=== PATIENT | male | born 1955 | race Caucasian/White ===

== ENCOUNTER → 2020-03-07 11:20 | Outpatient (CLI) | payer MEDICARE, MEDICAID, SELFPAY ==
--- NOTE | 2020-03-07 | DI.US.S_ITS ---
PROCEDURE: US ABDOMEN LIMITED INDICATIONS: ASCITES TECHNIQUE: Real-time focused scanning was performed of the abdomen, with image documentation. COMPARISON: None. FINDINGS: Quality of visualization is limited by very large body habitus. A moderate amount of ascites appears present. The liver is heterogeneous and appears nodular in its margination. IMPRESSION: Nodular margination of the liver, along the capsular borders. Moderate ascites. Suspect cirrhosis and portal hypertension. Dictated by: Matteo Dickens M.D. on 03/07/2020 at 12:42 Approved by: Matteo Dickens M.D. on 03/07/2020 at 12:43
== END ==
PROVIDERS: PCP Internal Medicine; Referring Provider Internal Medicine; Visit Provider Internal Medicine
DX: R18.8 Other ascites (principal); K74.60 Unspecified cirrhosis of liver
CPT/HCPCS: 76705

== ENCOUNTER → 2020-03-14 10:29 | Outpatient (CLI) | payer MEDICARE, MEDICAID, SELFPAY ==
--- NOTE | 2020-03-14 11:13 | DI.CT.S_ITS ---
PROCEDURE: CT ABDOMEN WO/W CON INDICATIONS: liver cell carcinoma TECHNIQUE: 4 phase scanning was performed. Non-contrast 5 mm axial sections acquired from the diaphragm to the iliac crests. Following the administration of intravenous contrast, 5 mm thick arterial-phase, portal venous-phase, and 5-minute delayed phase images were acquired through the liver. 5 mm thick coronal and sagittal reformats were performed. For radiation dose reduction, the following was used: automated exposure control, adjustment of mA and/or kV according to patient size. COMPARISON: [facility], , ABDOMEN LIMITED, 03/07/2020, 11:56. FINDINGS: Image quality: Reduced in quality of visualization due to patient motion, large body habitus, anasarca, and results in lower level of the density of contrast-enhancement. Lung bases: Lung bases are clear except for what appears to be mild atelectasis associated with elevation of the right diaphragm. Heart size is normal. Liver: Is small, nodular, and shows several metallic structures at its upper aspect, potentially representing evidence of prior localization or biopsy procedures. A discrete malignant appearing mass lesion within the liver is not found the quality of visualization is quite limited. Other solid organs: Gallbladder contains a posterior neck region calculus, but does not show definite evidence of acute cholecystitis. Biliary system is non dilated. Pancreas is normal in morphology where well seen. Spleen is enlarged at 15 cm craniocaudad in size and free of mass lesion during enhancement. No adrenal nodules on the right but there is a left-sided adrenal nodule measuring up to 1.9 cm in maximal axial dimension. Both kidneys demonstrate normal size and enhancement, without hydronephrosis or nephrolithiasis. Nodes and vessels: No retroperitoneal or mesenteric adenopathy by size criteria. Aorta and inferior vena cava are normal in size. Enlarged periumbilical veins are present, and varices are seen within the upper abdomen consistent with portal hypertension, as expected Bowel and peritoneum: Unenhanced bowel loops are normal in caliber. No free fluid or air. Bones and soft tissues: No suspicious bony lesions. No vertebral body compression generalized anasarca superimposed on large body habitus fractures. Miscellaneous: No ventral hernias. IMPRESSION: Quality of visualization is somewhat limited as discussed. The liver appears heterogeneous and cirrhotic in margination, but a discrete hepatic mass lesion is not identified. Several metallic clips or markers within the liver parenchyma are present. These may indicate sites of prior biopsy. Generalized moderate ascites, generalized moderately severe anasarca. Splenomegaly, portal hypertension. No definite acute disease. Dictated by: Matteo Dickens M.D. on 03/14/2020 at 13:00 Approved by: Matteo Dickens M.D. on 03/14/2020 at 13:17
[2020-03-14 11:20] LABS: Hemoglobin 11.4 g/dL (13.5-17.5); Mean Corpuscular HGB Conc 34.5 % (30-36); Mean Corpuscular Hemoglobin 35.1 PG (26-34); Mean Corpuscular Volume 101.6 fL (80-100); Platelet Count 68 X10^3/uL (150-400); Red Blood Cell Count 3.25 X10^6/uL (4.5-5.9); Red Cell Distribution Width 15.8 % (11.6-14.8); White Blood Cell Count 6.7 X10^3/uL (4.5-11.0)
[2020-03-14 11:29] LABS: INR 1.5 (0.9-1.3); Prothrombin Time 17.3 SECONDS (10.1-12.7)
[2020-03-14 11:34] LABS: Ur Creatinine Normal (Normal); Ur Specific Gravity Normal (Normal); Urine pH Normal (Normal)
[2020-03-14 11:35] LABS: Alanine Aminotransferase 39 IU/L (<50); Albumin 2.7 g/dL (3.5-5.0); Albumin Globulin Ratio 0.6 (1.0-2.8); Alkaline Phosphatase 136 U/L (38-126); Aspartate Aminotransferase 71 IU/L (17-59); BUN Creatinine Ratio 25.9 (6-22); Bilirubin Total 3.1 mg/dL (0.2-1.3); Blood Urea Nitrogen 30 mg/dL (9-20); Calcium 8.8 mg/dL (8.4-10.2); Carbon Dioxide 30 mmol/L (22-32); Chloride 101 mmol/L (98-107); Estimated Glomerular Filt Rate > 60.0 mL/min (>60); Globulin 4.5 g/dL (1.7-4.1); Glucose 129 mg/dL (80-110); HEMOLYSIS < 15 (0-50); Potassium 4.6 mmol/L (3.4-5.1); Sodium 135 mmol/L (137-145); Total Protein 7.2 g/dL (6.3-8.2); UR Morphine/Opiate cutoff 300 Negative (Negative); Urine Amphetamines Negative (Negative); Urine Barbiturates Negative (Negative); Urine Benzodiazepines Negative (Negative); Urine Cocaine Negative (Negative); Urine MDMA Negative (Negative); Urine Methadone Negative (Negative); Urine Methamphetamines Negative (Negative); Urine Oxycodone Negative (Negative); Urine Phencyclidine Negative (Negative); Urine Tetrahydrocannabinol Positive (Negative); Urine Tricyclic Antidepressant Negative (Negative)
[2020-03-15 08:08] LABS: Alpha Fetoprotein 2.3 ng/mL (0.0-8.3)
== END ==
PROVIDERS: PCP Internal Medicine; Referring Provider Internal Medicine Transplant Hepatology; Visit Provider Internal Medicine Transplant Hepatology
DX: C22.0 Liver cell carcinoma (principal); R18.8 Other ascites; R16.1 Splenomegaly, not elsewhere classified; K76.6 Portal hypertension
CPT/HCPCS: 36415; 74170; 80053; 80305; 80307; 82105; 85027; 85610; Q9967

== ENCOUNTER 2020-04-15 15:46 | Inpatient (IN) | payer MEDICARE, MEDICAID, SELFPAY ==
[2020-04-15] VITALS (8 sets, daily range): BP systolic 122–134; BP diastolic 58–79; PULSE 76–84; RESP 18–20; TEMP 36.6–37.2; O2SAT 98–100; BMI 41.8; BMI 49.6
--- NOTE | 2020-04-15 17:25 | DI.US.S_ITS ---
PROCEDURE: US PERIPH VENOUS LOW EXTREM RT INDICATIONS: RED LOWER EXTREMITY WITH PAIN TECHNIQUE: Real-time imaging, as well as color and pulse Doppler interrogation, were performed of the lower extremity deep veins from the inguinal ligament to the popliteal fossa. COMPARISON: None. FINDINGS: The common femoral, femoral and popliteal veins are normally compressible, and free of intraluminal thrombus. Color and pulse Doppler demonstrate normal phasic intraluminal flow. There is normal augmentation response to distal compression maneuver. IMPRESSION: No DVT found. Dictated by: Matteo Dickens M.D. on 04/15/2020 at 18:54 Approved by: Matteo Dickens M.D. on 04/15/2020 at 18:54
[2020-04-15] MEDS: HYDROCODONE/ACET 5/325 TABLET 1 TAB PO (18:24)
[2020-04-15 19:15] LABS: Add Manual Diff / Slide Review NO; Basophils Absolute Auto 0 /uL (0-100); Basophils Percent Auto 0.4 % (0-2); Eosinophils Absolute Auto 300 /uL (0-450); Eosinophils Percent Auto 4.1 % (2-4); Hematocrit 31.1 % (41-53); Hemoglobin 10.5 g/dL (13.5-17.5); INR 1.5 (0.9-1.3); Lymphocytes Absolute Auto 500 /uL (1100-4500); Lymphocytes Percent Auto 6.9 % (25-40); Mean Corpuscular HGB Conc 33.8 % (30-36); Mean Corpuscular Hemoglobin 34.5 PG (26-34); Monocytes Absolute Auto 1200 /uL (0-900); Monocytes Percent Auto 16.4 % (3-14); Neutrophils Absolute Auto 5400 /uL (1500-7000); Neutrophils Percent Auto 72.2 % (50-75); Platelet Count 91 X10^3/uL (150-400); Prothrombin Time 17.3 SECONDS (10.1-12.7); Red Blood Cell Count 3.05 X10^6/uL (4.5-5.9); Red Cell Distribution Width 15.5 % (11.6-14.8); White Blood Cell Count 7.5 X10^3/uL (4.5-11.0)
[2020-04-15 19:18] LABS: PTT Partial Thromboplastin Tim 31 SECONDS (26.4-36.2)
[2020-04-15 19:23] LABS: Magnesium 2.1 mg/dL (1.6-2.3)
[2020-04-15 19:24] LABS: Alanine Aminotransferase 27 IU/L (<50); Albumin 2.6 g/dL (3.5-5.0); Albumin Globulin Ratio 0.6 (1.0-2.8); Alkaline Phosphatase 103 U/L (38-126); Aspartate Aminotransferase 66 IU/L (17-59); BUN Creatinine Ratio 26.2 (6-22); Bilirubin Total 2.2 mg/dL (0.2-1.3); Blood Urea Nitrogen 34 mg/dL (9-20); Calcium 8.8 mg/dL (8.4-10.2); Carbon Dioxide 30 mmol/L (22-32); Chloride 97 mmol/L (98-107); Estimated Glomerular Filt Rate 55.8 mL/min (>60); Globulin 4.7 g/dL (1.7-4.1); Glucose 118 mg/dL (80-110); Potassium 4.8 mmol/L (3.4-5.1); Sodium 130 mmol/L (137-145); Total Protein 7.3 g/dL (6.3-8.2)
[2020-04-15 19:26] LABS: Lactate (Lactic Acid) 1.5 mmol/L (0.7-2.1)
[2020-04-15 19:27] LABS: HEMOLYSIS 52 (0-50)
[2020-04-15 19:33] LABS: NT-proBNP (BNP-Adult 18+) 991 pg/mL (<125)
[2020-04-15 19:46] LABS: Procalcitonin 1.05 ng/mL (<0.5)
--- NOTE | 2020-04-15 20:07 | ED_ITS ---
HPI - Extremity Problem <DANIELLE Montgomery-BC - Last Filed: 04/15/20 21:11> General Chief complaint: Extremity Problem,Nontraumatic Stated complaint: RIGHT ANKLE SWELLING Time Seen by Provider: 04/15/20 17:51 Source: patient Mode of arrival: Wheelchair Limitations: no limitations History of Present Illness HPI Narrative: The patient is a 65-year-old male with history of hepatitis-C, cirrhosis and fluid retention who presents with a chief complaint of pain and swelling in his right foot and ankle. He started noticing the redness and pain 5 days ago. He states he has had a lot of fluid retention issues recently, and has been seeing his primary care provider regarding this, Dr. Payan. He has been placed on Lasix and spironolactone and states that he has lost a large amount of weight recently. He has had the fluid retention issues for several months at this point. He presents denying any chest pain, shortness of breath, fevers nausea vomiting diarrhea or abdominal pain. He states all of his pain is in his foot. He states he has a hard time getting around, but denies any recent flight Related Data Home Medications Medication Instructions Recorded Confirmed furosemide 40 mg PO BID 04/15/20 04/15/20 spironolactone 200 mg PO DAILY 04/15/20 04/15/20 Previous Rx's Medication Instructions Recorded albuterol sulfate 90 mcg/actuation 2 inhalation INHALATION Q4-6H PRN 01/23/20 breath activated powder inhaler #1 each Allergies Allergy/AdvReac Type Severity Reaction Status Date / Time No Known Drug Allergies Allergy Verified 01/23/20 10:24 Review of Systems <BISI Montgomery - Last Filed: 04/15/20 21:11> Review of Systems Narrative: GENERAL: Denies chills, fatigue, malaise, fever, sweats. HEENT: Denies sinus pain, ear pain, sore throat, difficulty swallowing, dizziness. RESPIRATORY: Denies dyspnea, cough, wheezing, hemoptysis, sputum. CARDIOVASCULAR: Denies chest pain, palpitations, orthopnea, edema, GASTROINTESTINAL: Denies nausea, vomiting, abdominal pain, diarrhea, constipation, melena. : Denies dysuria, frequency, incontinence, hematuria, urinary retention. MUSCULOSKELETAL: See HPI SKIN: See HPI NEUROLOGIC: Denies weakness, headache, numbness, change in speech, confusion, seizures, incoordination. PSYCHIATRIC: No concerning psychosocial issues. 12 point review of systems is negative except for those stated above Patient History <ARIS Montgomery - Last Filed: 04/15/20 21:11> Medical History Anasarca (Acute) Ascites (Acute) Asthma (Chronic) Elevated brain natriuretic peptide (BNP) level (Acute) Hepatitis C (Acute) Hypertension (Chronic) Liver cancer (Acute) Liver cirrhosis (Acute) Surgical History History of surgery of liver (Acute) Family History Father Trauma Mother Sjogrens syndrome Sister No significant medical problems Social History household members: spouse Smoking Status: Never smoker alcohol intake: never Smoking Status: Never smoker alcohol intake frequency: 0-2 drinks per day Substance Use Type: marijuana Exam <ARIS Montgomery - Last Filed: 04/15/20 21:11> Narrative Exam Narrative: GENERAL: Obese unkempt male in no acute distress HEAD: Atraumatic. Normocephalic. No temporal or scalp tenderness. EYES: Pupils equal round and reactive. Extraocular motions intact. No scleral icterus. No injection or drainage. ENT: Nose without bleeding, purulent drainage or septal hematoma. . Airway patent. NECK: Trachea midline. No JVD or lymphadenopathy. Supple, nontender, no meningeal signs. CARDIOVASCULAR: Regular rate and rhythm RESPIRATORY: Coarse bilaterally to auscultation. Breath sounds equal bilaterally. No wheezes, rales, or rhonchi. GASTROINTESTINAL: Abdomen soft, non-tender, nondistended. No hepato- splenomegaly, or palpable masses. No guarding. EXTREMITIES: Skin exam as noted. +2 to +3 edema bilateral lower extremities. Positive pedal pulses noted bilaterally. BACK: Nontender without deformity or crepitance. No flank tenderness. NEURO: AOx3. SKIN: Erythema over dorsum of right foot, extending approximately 10 cm up right french. Serosanguineous drainage noted. Slight blistering noted. Multiple dried scabs noted. Initial Vital Signs Initial Vital Signs: Vital Signs Temperature 98.4 F 04/15/20 16:27 Pulse Rate 76 04/15/20 16:27 Respiratory Rate 20 04/15/20 16:27 Blood Pressure 126/65 04/15/20 16:27 Pulse Oximetry 99 04/15/20 16:27 <Ilya Iniguez MD - Last Filed: 04/16/20 03:56> Initial Vital Signs Initial Vital Signs: Vital Signs Temperature 98.4 F 04/15/20 16:27 Pulse Rate 76 04/15/20 16:27 Respiratory Rate 20 04/15/20 16:27 Blood Pressure 126/65 04/15/20 16:27 Pulse Oximetry 99 04/15/20 16:27 Scores <ARIS Montgomery - Last Filed: 04/15/20 21:11> GCS Ricardo coma scale eye opening: Spontaneous Ricardo coma scale verbal response: Orientated Ricardo coma scale motor response: Obey commands Ricardo coma scale total score: 15 Course <ARIS Montgomery - Last Filed: 04/15/20 21:11> Orders Ordered: ED Orders 04/15/20 20:25 Blood Culture Stat 04/15/20 20:57 Wound Culture and Gram Stain Stat Acetaminophen (Tylenol) 650 mg PO Q6HR PRN PRN Reason: Fever/Mild Pain (1-3) Al Hydrox/Mg Hydrox/Simethicone (Maalox Plus) 30 ml PO Q6HR PRN PRN Reason: Dyspepsia Albuterol (Ventolin Hfa) 2 puff INH Q4H PRN PRN Reason: Shortness Of Breath Or Wheezing Bisacodyl (Dulcolax) 10 mg HI DAILY PRN PRN Reason: Constipation Calcium Carbonate (Tums) 1,000 mg PO Q4HR PRN PRN Reason: Dyspepsia Last Admin: 04/15/20 22:28 Dose: 1,000 mg Documented by: GENTRY Docusate Sodium (Colace) 100 mg PO BID TIERNEY Enoxaparin Sodium (Lovenox) 40 mg SUBCUT DAILY TIERNEY Furosemide (Lasix) 80 mg IV BID TIERNEY Hydromorphone HCl (Dilaudid) 0.5 mg IV Q4H PRN PRN Reason: Pain, Severe (7-10) Last Admin: 04/16/20 03:15 Dose: 0.5 mg Documented by: MICHELE Piperacillin/Tazobactam/Dextrose (Zosyn) 3.375 gm in 50 mls @ 100 mls/hr IV Q6H TIERNEY Last Admin: 04/16/20 03:07 Dose: 100 mls/hr Documented by: MICHELE Vancomycin HCl/Dextrose (Vancomycin) 2,000 mg in 400 mls @ 200 mls/hr IV Q12H TIERNEY Sodium Chloride (Normal Saline 0.9%) 250 mls @ 21 mls/hr IV Q24H PRN PRN Reason: Flush Naloxone HCl (Narcan) 0.2 mg IV Q2MIN PRN PRN Reason: Opiate Reversal Ondansetron HCl (Zofran) 4 mg IV Q8HR PRN PRN Reason: Nausea And Vomiting Oxycodone HCl (Percolone) 10 mg PO Q4HR PRN PRN Reason: Pain, Severe (7-10) Oxycodone HCl (Percolone) 5 mg PO Q4HR PRN PRN Reason: Pain, Moderate (4-6) Sodium Chloride (Normal Saline 0.9% Flush) 10 ml IV PRN PRN PRN Reason: Flush Last Admin: 04/16/20 03:07 Dose: 10 ml Documented by: MICHELE Sodium Chloride (Normal Saline 0.9% Flush) 10 ml IV BID TIERNEY Spironolactone (Aldactone) 100 mg PO BIDWM [facility] Vancomycin HCl (Vancomycin Per Pharmacy) 1 request MISC NOW ONE Stop: 04/15/20 21:02 Vancomycin HCl (Vancomycin Trough) 1 request MISC NOW ONE Stop: 04/17/20 09:31 Discontinued Medications Hydrocodone Bitart/Acetaminophen ([place] 5/325) 1 tab PO NOW ONE Stop: 04/15/20 18:21 Last Admin: 04/15/20 18:24 Dose: 1 tab Documented by: JAEYRaul Docusate Sodium (Colace) 100 mg PO BID PRN PRN Reason: Constipation Furosemide (Lasix) 20 mg IV BID TIERNEY Piperacillin/Tazobactam/Dextrose (Zosyn) 3.375 gm in 50 mls @ 100 mls/hr IV NOW ONE Stop: 04/15/20 20:50 Last Infusion: 04/15/20 22:31 Dose: 0 mls/hr Documented by: Admin: 04/15/20 20:32 Dose: 100 mls/hr Documented by: HUSSEIN Vancomycin HCl/Dextrose (Vancomycin) 2,000 mg in 400 mls @ 200 mls/hr IV NOW ONE Stop: 04/15/20 22:22 Last Infusion: 04/16/20 00:23 Dose: 0 mls/hr Documented by: Admin: 04/15/20 22:30 Dose: 200 mls/hr Documented by: GENTRY Vancomycin HCl/Dextrose (Vancomycin) 2,000 mg in 400 mls @ 200 mls/hr IV Q12H TIERNEY Lisinopril (Zestril) 40 mg PO DAILY TIERNEY Oxycodone HCl (Percolone) 5 mg PO Q6HR PRN PRN Reason: Pain, Moderate (4-6) Last Admin: 04/16/20 00:20 Dose: 5 mg Documented by: Admin: 04/15/20 22:28 Dose: 5 mg Documented by: GENTRY Oxycodone HCl (Percolone) 5 mg PO NOW ONE Stop: 04/16/20 00:20 Last Admin: 04/16/20 01:58 Dose: Not Given Documented by: MICHELE Vital Signs Vital signs: Vital Signs - 8 hr 04/15/20 20:00 Pulse Rate 76 Blood Pressure 128/62 Pulse Oximetry 99 <Ilya Iniguez MD - Last Filed: 04/16/20 03:56> Orders Ordered: ED Orders 04/15/20 20:25 Blood Culture Stat 04/15/20 20:57 Wound Culture and Gram Stain Stat Acetaminophen (Tylenol) 650 mg PO Q6HR PRN PRN Reason: Fever/Mild Pain (1-3) Al Hydrox/Mg Hydrox/Simethicone (Maalox Plus) 30 ml PO Q6HR PRN PRN Reason: Dyspepsia Albuterol (Ventolin Hfa) 2 puff INH Q4H PRN PRN Reason: Shortness Of Breath Or Wheezing Bisacodyl (Dulcolax) 10 mg HI DAILY PRN PRN Reason: Constipation Calcium Carbonate (Tums) 1,000 mg PO Q4HR PRN PRN Reason: Dyspepsia Last Admin: 04/15/20 22:28 Dose: 1,000 mg Documented by: GENTRY Docusate Sodium (Colace) 100 mg PO BID [facility] Enoxaparin Sodium (Lovenox) 40 mg SUBCUT DAILY [facility] Furosemide (Lasix) 80 mg IV BID TIERNEY Hydromorphone HCl (Dilaudid) 0.5 mg IV Q4H PRN PRN Reason: Pain, Severe (7-10) Last Admin: 04/16/20 03:15 Dose: 0.5 mg Documented by: MICHELE Piperacillin/Tazobactam/Dextrose (Zosyn) 3.375 gm in 50 mls @ 100 mls/hr IV Q6H TIERNEY Last Admin: 04/16/20 03:07 Dose: 100 mls/hr Documented by: MICHELE Vancomycin HCl/Dextrose (Vancomycin) 2,000 mg in 400 mls @ 200 mls/hr IV Q12H [facility] Sodium Chloride (Normal Saline 0.9%) 250 mls @ 21 mls/hr IV Q24H PRN PRN Reason: Flush Naloxone HCl (Narcan) 0.2 mg IV Q2MIN PRN PRN Reason: Opiate Reversal Ondansetron HCl (Zofran) 4 mg IV Q8HR PRN PRN Reason: Nausea And Vomiting Oxycodone HCl (Percolone) 10 mg PO Q4HR PRN PRN Reason: Pain, Severe (7-10) Oxycodone HCl (Percolone) 5 mg PO Q4HR PRN PRN Reason: Pain, Moderate (4-6) Sodium Chloride (Normal Saline 0.9% Flush) 10 ml IV PRN PRN PRN Reason: Flush Last Admin: 04/16/20 03:07 Dose: 10 ml Documented by: MICHELE Sodium Chloride (Normal Saline 0.9% Flush) 10 ml IV BID [facility] Spironolactone (Aldactone) 100 mg PO BIDWM [facility] Vancomycin HCl (Vancomycin Per Pharmacy) 1 request MISC NOW ONE Stop: 04/15/20 21:02 Vancomycin HCl (Vancomycin Trough) 1 request MISC NOW ONE Stop: 04/17/20 09:31 Discontinued Medications Hydrocodone Bitart/Acetaminophen ([place] 5/325) 1 tab PO NOW ONE Stop: 04/15/20 18:21 Last Admin: 04/15/20 18:24 Dose: 1 tab Documented by: HUSSEIN Docusate Sodium (Colace) 100 mg PO BID PRN PRN Reason: Constipation Furosemide (Lasix) 20 mg IV BID TIERNEY Piperacillin/Tazobactam/Dextrose (Zosyn) 3.375 gm in 50 mls @ 100 mls/hr IV NOW ONE Stop: 04/15/20 20:50 Last Infusion: 04/15/20 22:31 Dose: 0 mls/hr Documented by: Admin: 04/15/20 20:32 Dose: 100 mls/hr Documented by: HUSSEIN Vancomycin HCl/Dextrose (Vancomycin) 2,000 mg in 400 mls @ 200 mls/hr IV NOW ONE Stop: 04/15/20 22:22 Last Infusion: 04/16/20 00:23 Dose: 0 mls/hr Documented by: Admin: 04/15/20 22:30 Dose: 200 mls/hr Documented by: GENTRY Vancomycin HCl/Dextrose (Vancomycin) 2,000 mg in 400 mls @ 200 mls/hr IV Q12H TIERNEY Lisinopril (Zestril) 40 mg PO DAILY TIERNEY Oxycodone HCl (Percolone) 5 mg PO Q6HR PRN PRN Reason: Pain, Moderate (4-6) Last Admin: 04/16/20 00:20 Dose: 5 mg Documented by: Admin: 04/15/20 22:28 Dose: 5 mg Documented by: GENTRY Oxycodone HCl (Percolone) 5 mg PO NOW ONE Stop: 04/16/20 00:20 Last Admin: 04/16/20 01:58 Dose: Not Given Documented by: MICHELE Vital Signs Vital signs: Vital Signs - 8 hr 04/15/20 20:00 Pulse Rate 76 Blood Pressure 128/62 Pulse Oximetry 99 MDM - Extremity (Nontraumatic) <DANIELLE Montgomery-BC - Last Filed: 04/15/20 21:11> Lab Data Result diagrams: 04/15/20 18:52 04/15/20 18:52 Labs: Lab Results 04/15/20 04/15/20 04/15/20 Range/Units 18:52 18:52 18:52 WBC 7.5 (4.5-11.0) X10^3/uL RBC 3.05 L (4.5-5.9) X10^6/uL Hgb 10.5 L (13.5-17.5) g/dL Hct 31.1 L (41-53) % MCV 102.0 H (80-100) fL MCH 34.5 H (26-34) PG MCHC 33.8 (30-36) % RDW 15.5 H (11.6-14.8) % Plt Count 91 L (150-400) X10^3/uL Neut % (Auto) 72.2 (50-75) % Lymph % (Auto) 6.9 L (25-40) % [place] % (Auto) 16.4 H (3-14) % Eos % (Auto) 4.1 H (2-4) % Baso % (Auto) 0.4 (0-2) % Neut # (Auto) 5400 (7618-5043) /uL Lymph # (Auto) 500 L (1622-8929) /uL [place] # (Auto) 1200 H (0-900) /uL Eos # (Auto) 300 (0-450) /uL Baso # (Auto) 0 (0-100) /uL PT 17.3 H (10.1-12.7) SECONDS INR 1.5 H (0.9-1.3) APTT 31 (26.4-36.2) SECONDS Sodium (137-145) mmol/L Potassium (3.4-5.1) mmol/L Chloride (98-107) mmol/L Carbon Dioxide (22-32) mmol/L BUN (9-20) mg/dL Creatinine (0.66-1.25) mg/dL Estimated GFR (>60) mL/min BUN/Creatinine Ratio (6-22) Glucose (80-110) mg/dL Lactate (0.7-2.1) mmol/L Calcium (8.4-10.2) mg/dL Magnesium (1.6-2.3) mg/dL Total Bilirubin (0.2-1.3) mg/dL AST (17-59) IU/L ALT (<50) IU/L Alkaline Phosphatase (38-126) U/L NT-Pro-B Natriuret Pep (<125) pg/mL Total Protein (6.3-8.2) g/dL Albumin (3.5-5.0) g/dL Globulin (1.7-4.1) g/dL Albumin/Globulin Ratio (1.0-2.8) Procalcitonin 1.05 H (<0.5) ng/mL 04/15/20 04/15/20 04/15/20 Range/Units 18:52 18:52 18:52 WBC (4.5-11.0) X10^3/uL RBC (4.5-5.9) X10^6/uL Hgb (13.5-17.5) g/dL Hct (41-53) % MCV (80-100) fL MCH (26-34) PG MCHC (30-36) % RDW (11.6-14.8) % Plt Count (150-400) X10^3/uL Neut % (Auto) (50-75) % Lymph % (Auto) (25-40) % [place] % (Auto) (3-14) % Eos % (Auto) (2-4) % Baso % (Auto) (0-2) % Neut # (Auto) (9898-4354) /uL Lymph # (Auto) (3423-2293) /uL [place] # (Auto) (0-900) /uL Eos # (Auto) (0-450) /uL Baso # (Auto) (0-100) /uL PT (10.1-12.7) SECONDS INR (0.9-1.3) APTT (26.4-36.2) SECONDS Sodium 130 L (137-145) mmol/L Potassium 4.8 (3.4-5.1) mmol/L Chloride 97 L (98-107) mmol/L Carbon Dioxide 30 (22-32) mmol/L BUN 34 H (9-20) mg/dL Creatinine 1.30 H (0.66-1.25) mg/dL Estimated GFR 55.8 L (>60) mL/min BUN/Creatinine Ratio 26.2 H (6-22) Glucose 118 H (80-110) mg/dL Lactate 1.5 (0.7-2.1) mmol/L Calcium 8.8 (8.4-10.2) mg/dL Magnesium 2.1 (1.6-2.3) mg/dL Total Bilirubin 2.2 H (0.2-1.3) mg/dL AST 66 H (17-59) IU/L ALT 27 (<50) IU/L Alkaline Phosphatase 103 (38-126) U/L NT-Pro-B Natriuret Pep (<125) pg/mL Total Protein 7.3 (6.3-8.2) g/dL Albumin 2.6 L (3.5-5.0) g/dL Globulin 4.7 H (1.7-4.1) g/dL Albumin/Globulin Ratio 0.6 L (1.0-2.8) Procalcitonin (<0.5) ng/mL 04/15/20 Range/Units 18:52 WBC (4.5-11.0) X10^3/uL RBC (4.5-5.9) X10^6/uL Hgb (13.5-17.5) g/dL Hct (41-53) % MCV (80-100) fL MCH (26-34) PG MCHC (30-36) % RDW (11.6-14.8) % Plt Count (150-400) X10^3/uL Neut % (Auto) (50-75) % Lymph % (Auto) (25-40) % [place] % (Auto) (3-14) % Eos % (Auto) (2-4) % Baso % (Auto) (0-2) % Neut # (Auto) (9524-1216) /uL Lymph # (Auto) (0374-0192) /uL [place] # (Auto) (0-900) /uL Eos # (Auto) (0-450) /uL Baso # (Auto) (0-100) /uL PT (10.1-12.7) SECONDS INR (0.9-1.3) APTT (26.4-36.2) SECONDS Sodium (137-145) mmol/L Potassium (3.4-5.1) mmol/L Chloride (98-107) mmol/L Carbon Dioxide (22-32) mmol/L BUN (9-20) mg/dL Creatinine (0.66-1.25) mg/dL Estimated GFR (>60) mL/min BUN/Creatinine Ratio (6-22) Glucose (80-110) mg/dL Lactate (0.7-2.1) mmol/L Calcium (8.4-10.2) mg/dL Magnesium (1.6-2.3) mg/dL Total Bilirubin (0.2-1.3) mg/dL AST (17-59) IU/L ALT (<50) IU/L Alkaline Phosphatase (38-126) U/L NT-Pro-B Natriuret Pep 991 H (<125) pg/mL Total Protein (6.3-8.2) g/dL Albumin (3.5-5.0) g/dL Globulin (1.7-4.1) g/dL Albumin/Globulin Ratio (1.0-2.8) Procalcitonin (<0.5) ng/mL Imaging Data US - DVT: Radiologist's Impression: [address] [place] [id number] Ultrasound Report Signed Patient: Juan Carlos Guzmán AMR#: [id number] : 7Acct:[id number] Age/Sex: 65 / MDate of Service: 04/15/20 Loc: ED Accession Number: [id number] Procedure: US periph venous low extrem rt Ordering Provider: James Tang MD PROCEDURE: US PERIPH VENOUS LOW EXTREM RT INDICATIONS: RED LOWER EXTREMITY WITH PAIN TECHNIQUE: Real-time imaging, as well as color and pulse Doppler interrogation, were performed of the lower extremity deep veins from the inguinal ligament to the popliteal fossa. COMPARISON: None. FINDINGS: The common femoral, femoral and popliteal veins are normally compressible, and free of intraluminal thrombus. Color and pulse Doppler demonstrate normal phasic intraluminal flow. There is normal augmentation response to distal compression maneuver. IMPRESSION: No DVT found. Dictated by: Matteo Dickens M.D. on 04/15/2020 at 18:54 Approved by: Matteo Dickens M.D. on 04/15/2020 at 18:54 [facility] Narrative Medical decision making narrative: The patient is a 65-year-old male with multiple comorbid conditions, who presents with a chief complaint of a painful red swollen right foot and ankle. He has no signs of systemic illness, is afe brile in the emergency department. He does have a negative ultrasound for DVT. His exam is very concerning for cellulitis. He has no leukocytosis, there was noted to have an elevated procalcitonin, over 1. Given his multiple comorbidities, I am concerned about follow-up for this patient as well as his elevated procalcitonin. Patient was started on vancomycin and Zosyn, after speaking with Carlos ROE regarding admission for this patient. He kindly agreed to admit this patient for observation to treat his cellulitis. Patient was okay within care, appreciate his help. Patient has been hemodynamically stable throughout stay in the emergency department <Ilya Iniguez MD - Last Filed: 04/16/20 03:56> Lab Data Labs: Lab Results 04/15/20 04/15/20 04/15/20 Range/Units 18:52 18:52 18:52 WBC 7.5 (4.5-11.0) X10^3/uL RBC 3.05 L (4.5-5.9) X10^6/uL Hgb 10.5 L (13.5-17.5) g/dL Hct 31.1 L (41-53) % MCV 102.0 H (80-100) fL MCH 34.5 H (26-34) PG MCHC 33.8 (30-36) % RDW 15.5 H (11.6-14.8) % Plt Count 91 L (150-400) X10^3/uL Neut % (Auto) 72.2 (50-75) % Lymph % (Auto) 6.9 L (25-40) % [place] % (Auto) 16.4 H (3-14) % Eos % (Auto) 4.1 H (2-4) % Baso % (Auto) 0.4 (0-2) % Neut # (Auto) 5400 (8480-8201) /uL Lymph # (Auto) 500 L (6595-5826) /uL [place] # (Auto) 1200 H (0-900) /uL Eos # (Auto) 300 (0-450) /uL Baso # (Auto) 0 (0-100) /uL PT 17.3 H (10.1-12.7) SECONDS INR 1.5 H (0.9-1.3) APTT 31 (26.4-36.2) SECONDS Sodium (137-145) mmol/L Potassium (3.4-5.1) mmol/L Chloride (98-107) mmol/L Carbon Dioxide (22-32) mmol/L BUN (9-20) mg/dL Creatinine (0.66-1.25) mg/dL Estimated GFR (>60) mL/min BUN/Creatinine Ratio (6-22) Glucose (80-110) mg/dL Lactate (0.7-2.1) mmol/L Calcium (8.4-10.2) mg/dL Magnesium (1.6-2.3) mg/dL Total Bilirubin (0.2-1.3) mg/dL AST (17-59) IU/L ALT (<50) IU/L Alkaline Phosphatase (38-126) U/L NT-Pro-B Natriuret Pep (<125) pg/mL Total Protein (6.3-8.2) g/dL Albumin (3.5-5.0) g/dL Globulin (1.7-4.1) g/dL Albumin/Globulin Ratio (1.0-2.8) Procalcitonin 1.05 H (<0.5) ng/mL 04/15/20 04/15/20 04/15/20 Range/Units 18:52 18:52 18:52 WBC (4.5-11.0) X10^3/uL RBC (4.5-5.9) X10^6/uL Hgb (13.5-17.5) g/dL Hct (41-53) % MCV (80-100) fL MCH (26-34) PG MCHC (30-36) % RDW (11.6-14.8) % Plt Count (150-400) X10^3/uL Neut % (Auto) (50-75) % Lymph % (Auto) (25-40) % [place] % (Auto) (3-14) % Eos % (Auto) (2-4) % Baso % (Auto) (0-2) % Neut # (Auto) (8049-1823) /uL Lymph # (Auto) (9223-7064) /uL [place] # (Auto) (0-900) /uL Eos # (Auto) (0-450) /uL Baso # (Auto) (0-100) /uL PT (10.1-12.7) SECONDS INR (0.9-1.3) APTT (26.4-36.2) SECONDS Sodium 130 L (137-145) mmol/L Potassium 4.8 (3.4-5.1) mmol/L Chloride 97 L (98-107) mmol/L Carbon Dioxide 30 (22-32) mmol/L BUN 34 H (9-20) mg/dL Creatinine 1.30 H (0.66-1.25) mg/dL Estimated GFR 55.8 L (>60) mL/min BUN/Creatinine Ratio 26.2 H (6-22) Glucose 118 H (80-110) mg/dL Lactate 1.5 (0.7-2.1) mmol/L Calcium 8.8 (8.4-10.2) mg/dL Magnesium 2.1 (1.6-2.3) mg/dL Total Bilirubin 2.2 H (0.2-1.3) mg/dL AST 66 H (17-59) IU/L ALT 27 (<50) IU/L Alkaline Phosphatase 103 (38-126) U/L NT-Pro-B Natriuret Pep (<125) pg/mL Total Protein 7.3 (6.3-8.2) g/dL Albumin 2.6 L (3.5-5.0) g/dL Globulin 4.7 H (1.7-4.1) g/dL Albumin/Globulin Ratio 0.6 L (1.0-2.8) Procalcitonin (<0.5) ng/mL 04/15/20 Range/Units 18:52 WBC (4.5-11.0) X10^3/uL RBC (4.5-5.9) X10^6/uL Hgb (13.5-17.5) g/dL Hct (41-53) % MCV (80-100) fL MCH (26-34) PG MCHC (30-36) % RDW (11.6-14.8) % Plt Count (150-400) X10^3/uL Neut % (Auto) (50-75) % Lymph % (Auto) (25-40) % [place] % (Auto) (3-14) % Eos % (Auto) (2-4) % Baso % (Auto) (0-2) % Neut # (Auto) (2650-9491) /uL Lymph # (Auto) (0579-8299) /uL [place] # (Auto) (0-900) /uL Eos # (Auto) (0-450) /uL Baso # (Auto) (0-100) /uL PT (10.1-12.7) SECONDS INR (0.9-1.3) APTT (26.4-36.2) SECONDS Sodium (137-145) mmol/L Potassium (3.4-5.1) mmol/L Chloride (98-107) mmol/L Carbon Dioxide (22-32) mmol/L BUN (9-20) mg/dL Creatinine (0.66-1.25) mg/dL Estimated GFR (>60) mL/min BUN/Creatinine Ratio (6-22) Glucose (80-110) mg/dL Lactate (0.7-2.1) mmol/L Calcium (8.4-10.2) mg/dL Magnesium (1.6-2.3) mg/dL Total Bilirubin (0.2-1.3) mg/dL AST (17-59) IU/L ALT (<50) IU/L Alkaline Phosphatase (38-126) U/L NT-Pro-B Natriuret Pep 991 H (<125) pg/mL Total Protein (6.3-8.2) g/dL Albumin (3.5-5.0) g/dL Globulin (1.7-4.1) g/dL Albumin/Globulin Ratio (1.0-2.8) Procalcitonin (<0.5) ng/mL Discharge Plan Departure Patient Disposition: Admitted as Observation Clinical Impression: Cellulitis Qualifiers: Site of cellulitis: extremity Site of cellulitis of extremity: lower extremity Laterality: right Qualified Code(s): L03.115 - Cellulitis of right lower limb Discharge Date/Time: 04/15/20 20:58 Admit Date/Time: 04/15/20 20:24 Admit Provider: Wero Felipe
[2020-04-15] MEDS: PIPERACILLIN-TAZO 3.375 GM/50 ML FROZ.PIGGY IV (20:32)
[2020-04-15] MEDS: OXYCODONE IR 5 MG TABLET PO (22:28)
[2020-04-15] MEDS: CALCIUM CARBONATE 500 MG TAB 1000 MG PO (22:28)
[2020-04-15] MEDS: VANCOMYCIN 2,000 MG/400 ML PIGGYBACK 200 MG IV (22:30)
--- NOTE | 2020-04-15 22:40 | PC.NURSE ---
Admit/Evening Shift Note- Patient arrived to room via stretcher from ER. Patient able to ambulate from stretcher to bathroom then to bed with walker. Admit questions done, physical assessment done, and skin check done. 3-4+ pitting edema to bilateral lower extremities and abdomin noted. multiple lesions and blisters to BLE noted. few scabbed lesions and one open lesion noted. BLE elevated up on pillows. Patient complained of leg pain at 7/10. Oxycodone 5mg PO PRN given as ordered. Patient oriented to bed and bed controls, room, lights, phone, bathroom, and call wright/tv remoted. Safety measures in place. Bed alarm acitvated. Call wright and phone within reach. will continue to monitor.
--- NOTE | 2020-04-15 22:51 | P.HP_ITS ---
History of Present Illness History of Present Illness Date Patient Seen: 04/15/20 Time Patient Seen: 21:34 Chief complaint: RIGHT ANKLE SWELLING Narrative: Mr. Juan Carlos Guzmán is a 65-year-old male with a past medical history significant for hepatitis-C, liver cirrhosis with ascites and anasarca, liver cancer, hypertension and seasonal asthma who presents to the emergency department with right lower extremity swelling and pain for 5 days. The patient has been under the care of Dr. Pancho Payan in [place] where he has been undergoing diuresis for the last month following a 47 lb weight gain. Patient has had progressive abdominal ascites and generalized anasarca that has responded to Lasix and spironolactone therapy. The patient describes wounds de veloping on his lower extremities secondary to the edema and reports developing redness of his right foot and ankle extending up his lower extremity that has been progressive for 5 days. He describes the pain as a 7 to an 8/10 aching in character that is sharp with touch. The patient denies systemic symptoms of fevers or chills, dizziness, nausea or vomiting. He has no known COVID-19 exposures. He denies complaints of chest pain or palpitations. He denies shortness of breath cough or wheezing. His last asthmatic event was in January and was started on a short course of steroids. He describes mild abdominal discomfort related to distention from ascites but no focal tenderness. He describes irregular stooling and no diarrhea. He denies difficulty urinating on diuretic therapy. Patient is able to ambulate albeit limited due to pain. Upon arrival to the ER the patient is afebrile with temperature 98.4?, heart rate of 76, blood pressure 126/65, respirations of 20 saturating 99% on room air. A venous duplex is obtained which finds no DVT but notes interstitial edema. On laboratory analysis he has a white count of 7.5 with elevated monocytes at 16.4%, hemoglobin of 10.5, hematocrit 31.1 and platelets of 91. On coagulation he has a PT of 17.3, INR 1.5, PTT of 31. His electrolytes are within normal limits with a potassium 4.8 and magnesium 2.1. He has a BUN 34 and a creatinine of 1.3. His nonfasting glucose is 118. He has an elevated bilirubin 2 2, elevated AST at 66, ALT of 27 alkaline phosphatase of 103. His albumin is 2.6. He has a lactic acid of 1.5 and procalcitonin of 1.05. His BMP is and 991. The patient is admitted to the medicine service for cellulitis of the right lower extremity in the setting cirrhosis with ascites and anasarca. Patient History Medical History Anasarca (Acute) Ascites (Acute) Asthma (Chronic) Elevated brain natriuretic peptide (BNP) level (Acute) Hepatitis C (Acute) Hypertension (Chronic) Liver cancer (Acute) Liver cirrhosis (Acute) Surgical History History of surgery of liver (Acute) Family & Social History Family History Father Trauma Mother Sjogrens syndrome Sister No significant medical problems Social History: household members spouse Prior Living Arrangements Mobile home Safety & Behavioral: Feels Safe in Current Yes Environment Been Physically Hurt or No Threatened By a Person Suicidal Ideation Description None Suicide Plan Description No Plan Tobacco & Substance use: Smoking Status Never smoker alcohol intake never alcohol intake frequency 0-2 drinks per day Substance Use Type marijuana Meds Home Medications and Allergies Home Medications Medication Instructions Recorded Confirmed Type albuterol sulfate 90 mcg/actuation 2 inhalation INHALATION Q4-6H PRN 01/23/20 04/15/20 Rx breath activated powder inhaler #1 each furosemide 40 mg PO BID 04/15/20 04/15/20 History spironolactone 200 mg PO DAILY 04/15/20 04/15/20 History Allergies Allergy/AdvReac Type Severity Reaction Status Date / Time No Known Drug Allergies Allergy Verified 01/23/20 10:24 Review of Systems Review of Systems ROS: Yes All systems reviewed with the patient and are negative except as otherwise documented Exam Vital Signs (past 8 hours): - 04/15/20 16:27 04/15/20 19:16 04/15/20 19:17 Temperature 98.4 F Pulse Rate 76 78 78 Respiratory Rate 20 Blood Pressure 126/65 134/60 Pulse Oximetry 99 100 100 04/15/20 19:30 04/15/20 20:00 04/15/20 20:55 Temperature 97.9 F Pulse Rate 77 76 78 Respiratory Rate 20 Blood Pressure 122/58 L 128/62 133/79 Pulse Oximetry 98 99 100 07/06/20 20:56 Temperature Pulse Rate Respiratory Rate Blood Pressure Pulse Oximetry 100 Oxygen Delivery Method Room Air Oxygen Flow Rate 0 Narrative Exam Narrative: GENERAL APPEARANCE: well developed, chronically ill-appearing male in no acute distress. HEENT: Normocephalic, PERRLA, sclera is anicteric, EOMs intact with bilateral nystagmus, no sinus tenderness to percussion, no rhinorrhea, report indication with missing teeth, mucous membranes are moist and pink without lesions or exudate. NECK/THYROID: neck supple, nontender, no JVD, no carotid bruit, no thyromegaly, trachea midline. LYMPH NODES: no cervical or supraclavicular lymphadenopathy. SKIN: [place], warm and dry, eczema most prominent left knee, swelling erythema warmth and pain mid right lower leg extending distally. HEART: regular rate and rhythm, S1-S2, no murmur, no rubs or gallops, brisk capillary refill, generalized anasarca LUNGS: clear to auscultation bilaterally, no coarseness crackles or wheezing, no cough present CHEST: Symmetrical movement, no accessory muscle use, good tidal volume. ABDOMEN: firm and distended, ascites with fluid wave, no abdominal tenderness on palpation, no organomegaly though exam limited by body habitus, no flank or suprapubic tenderness, active bowel tones. EXTREMITIES: moves all extremities, strength is 4/5 and symmetrical, 4+ edema bilateral lower extremities NEUROLOGIC: AAO x4, no focal neurologic deficits, cranial nerves II-XII grossly intact, sensation intact to light touch, hearing grossly normal to speech. PSYCH: Good eye contact, fair insight, tangential thought process, cooperative, appropriate with stable behavior Objective Labs Result Diagrams: 04/15/20 18:52 04/15/20 18:52 Labs: Laboratory Results - last 24 hr 04/15/20 04/15/20 04/15/20 18:52 18:52 18:52 WBC 7.5 RBC 3.05 L Hgb 10.5 L Hct 31.1 L MCV 102.0 H MCH 34.5 H MCHC 33.8 RDW 15.5 H Plt Count 91 L Neut % (Auto) 72.2 Lymph % (Auto) 6.9 L Emanuel % (Auto) 16.4 H Eos % (Auto) 4.1 H Baso % (Auto) 0.4 Neut # (Auto) 5400 Lymph # (Auto) 500 L Emanuel # (Auto) 1200 H Eos # (Auto) 300 Baso # (Auto) 0 PT 17.3 H INR 1.5 H APTT 31 Sodium Potassium Chloride Carbon Dioxide BUN Creatinine Estimated GFR BUN/Creatinine Ratio Glucose Lactate Calcium Magnesium Total Bilirubin AST ALT Alkaline Phosphatase NT-Pro-B Natriuret Pep Total Protein Albumin Globulin Albumin/Globulin Ratio Procalcitonin 1.05 H 04/15/20 04/15/20 04/15/20 18:52 18:52 18:52 WBC RBC Hgb Hct MCV MCH MCHC RDW Plt Count Neut % (Auto) Lymph % (Auto) Emanuel % (Auto) Eos % (Auto) Baso % (Auto) Neut # (Auto) Lymph # (Auto) Emanuel # (Auto) Eos # (Auto) Baso # (Auto) PT INR APTT Sodium 130 L Potassium 4.8 Chloride 97 L Carbon Dioxide 30 BUN 34 H Creatinine 1.30 H Estimated GFR 55.8 L BUN/Creatinine Ratio 26.2 H Glucose 118 H Lactate 1.5 Calcium 8.8 Magnesium 2.1 Total Bilirubin 2.2 H AST 66 H ALT 27 Alkaline Phosphatase 103 NT-Pro-B Natriuret Pep Total Protein 7.3 Albumin 2.6 L Globulin 4.7 H Albumin/Globulin Ratio 0.6 L Procalcitonin 04/15/20 18:52 WBC RBC Hgb Hct MCV MCH MCHC RDW Plt Count Neut % (Auto) Lymph % (Auto) Emanuel % (Auto) Eos % (Auto) Baso % (Auto) Neut # (Auto) Lymph # (Auto) Emanuel # (Auto) Eos # (Auto) Baso # (Auto) PT INR APTT Sodium Potassium Chloride Carbon Dioxide BUN Creatinine Estimated GFR BUN/Creatinine Ratio Glucose Lactate Calcium Magnesium Total Bilirubin AST ALT Alkaline Phosphatase NT-Pro-B Natriuret Pep 991 H Total Protein Albumin Globulin Albumin/Globulin Ratio Procalcitonin Assessment & Plan Assessment & Plan narrative: This is a 65-year-old male patient a history hepatitis-C, liver cirrhosis for 3 years with abdominal ascites and anasarca undergoing diuresis, liver cancer status post lesion excision, hypertension and asthma who is found to have cellulitis of the right lower extremity secondary to edema and skin breakdown. 1. Cellulitis right lower extremity, present on admission, active -cellulitis secondary to marked peripheral edema and associated skin breakdown. -patient has a normal white count 7.5 with elevated monocytes at 16.4%. Procalcitonin is elevated at 1.05. Blood culture and wound culture have been obtained. -ordered vancomycin 2000 mg IV with 1st dose administered in the ER and continued every 12 hours with pharmacy to dose. -ordered Zosyn 3.375 g IV every 6 hours. -will recheck CBC and procalcitonin in the morning. 2. Liver cirrhosis, secondary to hepatitis C, present on admission, stable -the patient has had progressive cirrhosis for 3 years worsening in the last few months and has been on aggressive diuresis for 1 month. -patient with firm distended abdomen with fluid wave present and generalized anasarca on exam. -patient has a bilirubin of 2.2, AST of 66, ALT of 27 alkaline phosphatase of 103. He has a creatinine 1.3, INR 1.5. Abdomen ultrasound on 03/07/2020 finding moderate ascites with heterogeneous and nodular liver and suspecting portal hypertension. Abdominal CT on 03/14/2020: cirrhotic in margination,no cancerous lesion, clips noted from prior liver surgery, gallbladder stones, pancreas found normal and enlarged spleen. -MELD score is 22 consistent with a 19.6% three-month mortality. -ordered Lasix 80 mg twice daily at 8:00 a.m. and 4:00 p.m., continue spirolactone 200 mg daily. Will monitor electrolytes on serial labs. -patient has been taking lactulose but states ran out, will obtain ammonia level. -low suspicion of spontaneous bacterial peritonitis. -requested dietitian consult. 3. Hypertension, chronic, stable -patient states he is no longer taking lisinopril for for blood pressure. -patient is being aggressively diuresed with Lasix and spironolactone which are continued as above. 4. Asthma, mild intermittent, seasonal, chronic, stable. -the patient denies complaints shortness of breath or wheezing. His last bout of asthma was in January at which time he underwent short course of steroids. -ordered albuterol MDI 2 puffs every 4-6 hours as needed. VTE prophylaxis: Left SCD, enoxaparin-will discontinue platelets drop below 50. IV fluid: Saline lock. Diet: Low-sodium. Code status: FULL CODE, patient designates his Tayler Rasmussen to be his surrogate decision maker. The patient is admitted to the hospital due to the severity of his infection and comorbid conditions increasing the risk for potential complications and adverse events. The patient is admitted as an inpatient with expected length of stay to be greater than 2 midnights. Quality VTE Deep Vein Thrombosis/Pulmonary Embolism Present on Admission: No
[2020-04-15 23:20] LABS: Ammonia (NH3) < 9 umol/L (9-30)
[2020-04-16] VITALS (11 sets, daily range): BP systolic 120–156; BP diastolic 71–88; PULSE 74–101; RESP 16–20; TEMP 36.1–37.1; O2SAT 93–99
[2020-04-16] MEDS: OXYCODONE IR 5 MG TABLET PO ×2 (00:20→23:46)
--- NOTE | 2020-04-16 00:45 | PC.NURSE ---
Addendum entered by Nicole Lemon R.N. 04/16/20 03:20: Has been asleep past couple hours and now awake and states pain is improved from earlier but still rates severity as 7/10; medicated with IV Dilaudid as too early to give additional Oxycodone. Assisted to reposition in bed. Original Note: Patient is alert and oriented. Breath sounds diminished but CTA with RA sat of 98%. Denies feeling SOB but does sound SOB with exertion of being up to bathroom. HRR. Denies nausea. BT present. Abdomen is very large and firm with edema. Noted to have moist, peeling skin in groin folds. Edema in bilateral LE toes to hip. Right LE is erythemic with pinhead size open area noted on anterior french. Has multiple lesions on bilateral knees and lower back which he states is from seborrhea. Complains of 7/10 pain in right LE despite receiving Oxycodone earlier so BEHAVIORAL HEALTH RN, Matteo, informed and medicated with 2nd Oxycodone per order. Has great difficulty in getting self out of bed due to edema/pain and then ambulated to bathroom with walker and 1 assist; does state he feels generalized weakness. Denies dysuria, frequency or urgency with urination. Wearing calf SCD to left leg. Fall risk score is high (reports falls within past 3 months) and bed alarm is activated although patient is calling appropriately.
[2020-04-16] MEDS: PIPERACILLIN-TAZO 3.375 GM/50 ML FROZ.PIGGY IV ×4 (03:07→22:26)
[2020-04-16] MEDS: SODIUM CHLORIDE 0.9% FLUSH 10 ML IV ×3 (03:07→21:59)
[2020-04-16] MEDS: HYDROMORPHONE 0.5 MG INJ IV (03:15)
[2020-04-16 05:43] LABS: Add Manual Diff / Slide Review NO; Basophils Absolute Auto 0 /uL (0-100); Basophils Percent Auto 0.3 % (0-2); Eosinophils Absolute Auto 300 /uL (0-450); Eosinophils Percent Auto 4.9 % (2-4); Hematocrit 30.2 % (41-53); Hemoglobin 10.2 g/dL (13.5-17.5); Lymphocytes Absolute Auto 400 /uL (1100-4500); Lymphocytes Percent Auto 7.3 % (25-40); Mean Corpuscular HGB Conc 33.7 % (30-36); Mean Corpuscular Hemoglobin 34.4 PG (26-34); Mean Corpuscular Volume 102.2 fL (80-100); Monocytes Absolute Auto 1200 /uL (0-900); Neutrophils Absolute Auto 4200 /uL (1500-7000); Neutrophils Percent Auto 68.5 % (50-75); Platelet Count 80 X10^3/uL (150-400); Red Blood Cell Count 2.95 X10^6/uL (4.5-5.9); Red Cell Distribution Width 15.3 % (11.6-14.8); White Blood Cell Count 6.1 X10^3/uL (4.5-11.0)
[2020-04-16 05:52] LABS: BUN Creatinine Ratio 26.7 (6-22); Blood Urea Nitrogen 32 mg/dL (9-20); Calcium 8.6 mg/dL (8.4-10.2); Carbon Dioxide 27 mmol/L (22-32); Chloride 100 mmol/L (98-107); Estimated Glomerular Filt Rate > 60.0 mL/min (>60); Glucose 113 mg/dL (80-110); HEMOLYSIS 15 (0-50); Potassium 4.7 mmol/L (3.4-5.1); Sodium 132 mmol/L (137-145)
[2020-04-16 06:10] LABS: Procalcitonin 0.72 ng/mL (<0.5)
[2020-04-16] MEDS: OXYCODONE IR 10 MG TABLET PO ×4 (06:24→19:08)
[2020-04-16] MEDS: SPIRONOLACTONE 50 MG TABLET 100 MG PO ×2 (08:30→19:09)
[2020-04-16] MEDS: SODIUM CHLORIDE 0.9% 250 ML 21 ML IV (08:30)
[2020-04-16] MEDS: FUROSEMIDE 20 MG/2 ML VIAL 80 MG IV ×2 (08:30→21:58)
[2020-04-16] MEDS: ENOXAPARIN 40 MG/0.4 ML SYRINGE SUBCUT (08:31)
[2020-04-16] MEDS: DOCUSATE 100 MG CAPSULE PO (08:31)
[2020-04-16] MEDS: VANCOMYCIN 1,500 MG/300 ML FROZ.PIGGY 200 MG IV ×2 (10:35→22:56)
--- NOTE | 2020-04-16 12:44 | CM.DANOTE ---
DCP: assessment: case received, EMR reviewed and met with pt during (and after) Team Bedside Rounds. Introduced self and role. PT is a 65 year old male who admitted last night to care of hospitalist team. PCP: Dr. Pancho Payan Payer: Medicare and Medicaid. Admission status: in review: per UR RN Amado Pt is admitted with cellulitis of RLE in setting of liver cirrhosis with ascites and anasarca. Dr. Kamara explained that she would be back later to talk with pt about his POC going forward. She gave order for OT/PT to see him. Pt reports he can get up and get to bathroom at home without assist but it sounds like his abilities are rather minimal due to his chronic illnesses. He describes his as very supportive. (see dcp template for other details) P: DCP team will be following as POC unfolds. Should know more about pt's options at d/c after admission status is established, Dr. Kamara's note is in and OT and PT have assessed.
--- NOTE | 2020-04-16 13:48 | PC.NURSE ---
Addendum entered by Monique Rodriguez R.N. 04/16/20 15:01: pt has voided a total of 2175 mls of urine this shift. Pt has drank approx 250mls plus has 350mls of ice water left in cup on bedside table. Original Note: Day Shift- Pt A&OX4, pleasant and coopertive, able to make needs known using call light. OOB frequently to void in toilet. 1PA using FWW. Pt moves slowly from lying to sitting to standing position getting OOB. Once ambulatory, pt moves fairly good. RLE red, slightly warm, small intact lesions present with 1 slightly draining lesion/blister to lower inner french area. RLE elevated on pillows throughout shift and using bed function. At 1140, pt's RLE elevated on 3 pillows and bed function left flat, retrieved better elevation with his foot not dangled downwards. LLE Calf SCD in place. Pt aware of 1.5L fluid restriction per Dr. Kamara, D-600mls, E-600mls, N-300mls.
--- NOTE | 2020-04-16 16:05 | PT.IIE ---
Current Diagnoses Cellulitis of right lower limb (04/15/20) Surgical History (Last Reviewed 04/15/20 @ 23:31 by BHUPINDER Brandon) History of surgery of liver (Acute) Medical History (Last Reviewed 04/15/20 @ 23:31 by BHUPINDER Brandon) Anasarca (Acute) Ascites (Acute) Asthma (Chronic) Elevated brain natriuretic peptide (BNP) level (Acute) Hepatitis C (Acute) Hypertension (Chronic) Liver cancer (Acute) Liver cirrhosis (Acute) Physical Therapy Inpatient Evaluation/Re-Eval M1 PT/OT-IP Prior Functional Status Start: 04/16/20 11:48 Freq: NEEDED Status: Active Protocol: Document 04/16/20 15:31 AW (Rec: 04/16/20 16:05 AW [id number]) Medical Review Prior Functional Status Medical History Reviewed Yes Communication WNL. Pt is an effective verbal communicator. Mobility and Gait Pt walks household and short community distances with a single crutch typically on his left side Activities of Daily Living and IADL's Pt reports he wears pants with elastic waistbands which he can don independently but that he requires assist with his shoes and socks partly due to swelling. Pt showers with SBA and completes all toileting independently. Prior Functional Level (Other details) Pt does not drive if he doesn' t have to. He depends on his , Tayler, for transportation. Social History Household Members spouse Living Arrangements Mobile home Number of Floors (Floors) One Floor Number of Stairs To Enter/Railing? Pt describes a packed earth ramp and one single step to enter through the front door. Home Environment Standard Height Toilet,Tub/ Shower Home Equipment Straight Cane,Crutches Additional Social History Comment Pt lives with his who works directory operator at [employer]. She is off work on Tuesdays and Wednesdays. Pt's daughter lives in her own trailer on the same property. M2 PT-IP Current Condition Start: 04/16/20 11:48 Freq: NEEDED Status: Active Protocol: Document 04/16/20 15:31 AW (Rec: 04/16/20 16:05 AW [id number]) Physical Therapy Current Condition Current Condition Evaluation Date 04/16/20 Treatment Diagnosis RLE cellulitis; difficulty in walking Onset Date 04/15/20 M3 PT-IP Subjective Start: 04/16/20 11:48 Freq: NEEDED Status: Active Protocol: Document 04/16/20 15:31 AW (Rec: 04/16/20 16:05 AW [id number]) Subjective Physical Therapy Visit Type Type Initial Evaluation Visit Start Time 14:57 Visit Stop Time 15:29 Total Visit Minutes 32 Notes Pt's arrived assisted through assessment and contributed information about PLOF and home set up. Physical Therapy Visit Comments Patient Comments Pt is willing to participate with PT. Patient Goals Pt hopes to return home with family support Therapy Pain Assessment Pain When Pain Assessed During Mobility Pain Present Pain Present Pain Reported Location Right Leg Scale Used not quantified Pain Behaviors Facial Grimacing Pain Management Techniques Elevation,Re-positioning, Timing of Activity with Medications M4 PT-IP Mobility and Gait Start: 04/16/20 11:48 Freq: NEEDED Status: Active Protocol: Document 04/16/20 15:31 AW (Rec: 04/16/20 16:05 AW [id number]) PT-Bed Mobility Assessment Supine to Sit Supine to Sit Standby Assistance,Bedrails Scooting Scooting to Edge of Bed Standby Assistance PT-Transfer Assessment Sit to and From Stand Sit to and from Stand Standby Assistance,Minimal Assistance,Use of Upper Extremities Equipment Transfer Assistive Device Gait Belt,Front Wheeled Walker Orthotic/Prosthetic Devices or Brace: No Transfers Transfer Destination Chair Transfer Technique pt ambulated with FWW and single crutch Transfer Ability Level of Assist Standby Assistance,Use of Upper Extremities Comments Mobility Comments Pt was sitting up in bed upon PT arrival. With HOB flat, he completed supine to sit SBA but with use of the bed rails. Pt was able to sit with and without UE support before completing sit to stand with FWW SBA and cues to push off the bed surface with B UE. He ambulated 30 feet around the room with FWW SBA, requiring verbal cues to correct flexed posture. Pt transferred to the chair SBA. Pt was asked to stand again and required verbal cues to scoot forward on the chair and to use BUE to push off the chair arms. From the low chair, pt required min A to complete sit to stand . He walked 15 feet with the walker SBA and then another 30 feet with the single crutch on his left side. Pt was able to sequence gait with left crutch and right leg advancing at the same time but required CGA. Pt then requested to ambulate without AD; he walked 20 feet in the room without AD requiring close CGA and pt reached for the foot of the bed and the sink during that short bout. Pt transferred back to the chair SBA where he was positioned with legs elevated, call light and all needs within reach, and supportive visiting. Gait Assessment Gait Gait Assistance Required: Standby Assistance,Contact Guard Assist Distance (Feet) 30 Assistive Devices Assistive Device None,Gait Belt,Front Wheeled Walker,Axillary Crutches Orthotic/Prosthetic Devices or Brace: No Gait Deviations General Gait Pattern Antalgic,Decreased Stride Length,Decreased Feet Clearance,Flexed Trunk,Step-to Gait,Wide Based Gait Factors Limiting Gait Function Factors Limiting Gait Function Decreased Activity Tolerance, Decreased Sensation,Decreased Strength,Difficulty Following Directions,Limited Range of Motion,Pain,Poor Balance,Poor Safety Awareness Comments Gait Comments See mobility comments. Gait was assessed with FWW, single axillary crutch, and without AD. Pt agreed he was safest and steadiest with FWW. See mobility comments for details. Gait was characterized by decreased R LE stance time and decreased L LE step length. Stair Climbing Assessment Comments Stair Climbing Comments Not assessed. PT-Balance Assessment Sitting Balance and Reactions Static Sitting Balance Ability Good Dynamic Sitting Balance Ability Good Standing Balance and Reactions Static Standing Balance Ability Fair Dynamic Standing Balance Ability Fair Device Used FWW M5 PT-IP Objective Assessments Start: 04/16/20 11:48 Freq: NEEDED Status: Active Protocol: Document 04/16/20 15:31 AW (Rec: 04/16/20 16:05 AW [id number]) Orientation Orientation/Cognition Level of Alertness Alert Orientation Name,Day of Week,Place, Situation Language Function Ability No Deficits Noted Safety Awareness Decreased Safety Awareness Memory Description No Deficits Noted Gross Range of Motion Lower Extremity ROM Assessment Right Impaired Impairments Lacking right ankle dorsiflexion due to swelling and pain Strength Lower Extremity Strength Assessment Bilaterally Impaired Hip 4-/5 Knee 4/5 Ankle L 4+/5; R 3-/5 Coordination Assessment Gross Coordination Gross Coordination WNL Sensation Assessment Sensation Gross Sensation Right LE Impaired Comments Sensation Comments Pt denies sensation impairment R LE per history but agrees on exam that distal R LE sensation is diminished. Muscle Tone Muscle Tone WNL Yes M6 PT-IP Treatment Start: 04/16/20 11:48 Freq: NEEDED Status: Active Protocol: Document 04/16/20 15:31 AW (Rec: 04/16/20 16:05 AW [id number]) Physical Therapy Treatment Exercises Exercises Ankle Pumps Education Education Provided Precautions,Safety Other Treatments Other Treatment Performed Provided education on role of PT, plan of care, and rationale for selection of an assistive device. M7 PT-IP Assessment and Plan Start: 04/16/20 11:48 Freq: NEEDED Status: Active Protocol: Document 04/16/20 15:31 AW (Rec: 04/16/20 16:05 AW [id number]) PT Summary Assessment and Plan Potential Rehabilitation Potential Good Status of Condition at Evaluation Evolving Summary Impairments Pain,ROM,Strength,Balance, Sensation,Bed Mobility, Transfers,Gait,Activity Tolerance Assessment Summary Kadeem is a 65 yo man seen for PT evaluation with diagnosis of R LE cellulitis. At baseline, he ambulates with a single axillary crutch for short distances up to 50 feet. He lives with his supportive spouse, Tayler, who works directory operator. Pt reports three falls in the past four months. On evaluation, pt required min assist for sit to stand from low chair and SBA for ambulation with FWW. CGA was needed for ambulation with single crutch and without AD. Pt agreed that energy expenditure was higher with the crutch and without AD. He would benefit from use of FWW at home in order to improve indpendent mobility and to reduce risk of falls. Pt is likely to be safe to discharge to home with spouse assist, FWW, and may benefit from home health or outpatient therapy to address safety in the home and reduce risk of falls. Goals Bed Mobility Goal Independent Transfer Goal Independent,Front Wheeled Walker Gait Goal Independent,Front Wheel Walker Gait Distance 100 Other Goals - up/down single step with FWW SBA Days to Meet Goals 3 Frequency of Treatment Frequency Of Treatment Once a Day Treatment Plan Physical Therapy Treatment Plan Bed Mobility Training,Transfer Training,Gait Training, Therapeutic Exercise,Balance Retraining,Discharge Planning, Hot or Cold Pack,Neuromuscular Re-ed Other Recommendations and Next Treatment gait training with FWW; Focus dispense FWW if pt discharging Recommendations To Nursing Amount of Assist Needed Standby Assistance,1 Person Assist Discharge Recommendations PT Discharge Recommendations Home with Assistance,Home Health,Outpatient PT Other Discharge Recommendations home with assist and HH vs OP PT Equipment Needed for Home Before FWW Discharge Transportation Needs at Discharge Private Vehicle
--- NOTE | 2020-04-16 16:25 | P.PN_ITS ---
Subjective Subjective Date Patient Seen: 04/16/20 Interval history: Juan Carlos Guzmán is a 65-year-old Cmale with a past medical history significant for treated hepatitis C with liver cirrhosis and complication of portal hypertension, ascites, thrombocytopenia, hepatocellular carcinoma status post resection and treatment considered in remission, hypertension and seasonal asthma who presented to the ED with progressive worsening right lower extremity erythema and edema x5 days. The patient is resting comfortably in bed. He reports that is difficult for him to get in and out of bed due to his size and swelling of his lower extremities, abdomen and hips. He reports that the diuretics have been working well and have been causing him to have to urinate frequently. His right lower extremity cellulitis is improving. He has dependent edema to abdominal wall and hips bilaterally. He has no other complaints and denies headache, chest pain, shortness of breath, abdominal pain, nausea, vomiting, fever, chills, dysuria, diarrhea or constipation. He is voiding and eliminating without difficulty. He is up ambulating with assistance. Exam Vital Signs (past 8 hours): - 04/16/20 10:10 04/16/20 11:42 04/16/20 12:00 Temperature 97.0 F L Pulse Rate 88 87 Respiratory Rate 16 18 Blood Pressure 130/72 Pulse Oximetry 99 98 98 04/16/20 16:00 Temperature 97.6 F Pulse Rate 85 Respiratory Rate 19 Blood Pressure 134/76 Pulse Oximetry 95 Oxygen Delivery Method Room Air Oxygen Flow Rate 0 Narrative Exam Narrative: General: Older gentleman sitting in bed and in no acute distress, appears older than stated age, well-developed, well-nourished, appropriately interactive HEENT: Normocephalic, atraumatic. External ears without defect. Pupils equal, round, and reactive to light and accommodation. Anicteric sclerae, moist conjunctivae, and no lid lag. Oropharynx free of erythema and cobble stoning with moist mucosa. Poor dentition. Neck: Supple with full range of motion. No jugular venous distension. No bruits. No lymphadenopathy or thyromegaly. Cardiovascular: Regular rate and rhythm without murmurs, rubs, or gallops appreciated Pulmonary: Clear to auscultation bilaterally without crackles, wheezes, or rhonchi. Normal respiratory effort with no use of accessory muscles. Abdomen: Soft, obese, nontender, nondistended. No hepatosplenomegaly or masses appreciated. Extremities: No clubbing or cyanosis. Moderate dependent pitting edema to abdominal wall and hips bilaterally. Right lower extremity with erythema and warmth to pretibial area that appears to be regressing and is tender to touch. Skin: Normal temperature, turgor, and texture; several small maculopapular lesions breath throughout bilateral lower extremities. Neurological: Cranial nerves grossly intact. Psychiatric: Normal mood and affect. Alert and oriented to person, place, and time. Poor insight. Objective Labs Result Diagrams: 04/17/20 05:40 04/17/20 05:40 Labs: Laboratory Results - last 24 hr 04/15/20 04/15/20 04/15/20 18:52 18:52 18:52 WBC 7.5 RBC 3.05 L Hgb 10.5 L Hct 31.1 L MCV 102.0 H MCH 34.5 H MCHC 33.8 RDW 15.5 H Plt Count 91 L Neut % (Auto) 72.2 Lymph % (Auto) 6.9 L [place] % (Auto) 16.4 H Eos % (Auto) 4.1 H Baso % (Auto) 0.4 Neut # (Auto) 5400 Lymph # (Auto) 500 L [place] # (Auto) 1200 H Eos # (Auto) 300 Baso # (Auto) 0 PT 17.3 H INR 1.5 H APTT 31 Sodium Potassium Chloride Carbon Dioxide BUN Creatinine Estimated GFR BUN/Creatinine Ratio Glucose Lactate Calcium Magnesium Total Bilirubin AST ALT Alkaline Phosphatase Ammonia NT-Pro-B Natriuret Pep Total Protein Albumin Globulin Albumin/Globulin Ratio Procalcitonin 1.05 H 04/15/20 04/15/20 04/15/20 18:52 18:52 18:52 WBC RBC Hgb Hct MCV MCH MCHC RDW Plt Count Neut % (Auto) Lymph % (Auto) [place] % (Auto) Eos % (Auto) Baso % (Auto) Neut # (Auto) Lymph # (Auto) [place] # (Auto) Eos # (Auto) Baso # (Auto) PT INR APTT Sodium 130 L Potassium 4.8 Chloride 97 L Carbon Dioxide 30 BUN 34 H Creatinine 1.30 H Estimated GFR 55.8 L BUN/Creatinine Ratio 26.2 H Glucose 118 H Lactate 1.5 Calcium 8.8 Magnesium 2.1 Total Bilirubin 2.2 H AST 66 H ALT 27 Alkaline Phosphatase 103 Ammonia NT-Pro-B Natriuret Pep Total Protein 7.3 Albumin 2.6 L Globulin 4.7 H Albumin/Globulin Ratio 0.6 L Procalcitonin 04/15/20 04/15/20 04/16/20 18:52 23:05 05:30 WBC RBC Hgb Hct MCV MCH MCHC RDW Plt Count Neut % (Auto) Lymph % (Auto) [place] % (Auto) Eos % (Auto) Baso % (Auto) Neut # (Auto) Lymph # (Auto) [place] # (Auto) Eos # (Auto) Baso # (Auto) PT INR APTT Sodium Potassium Chloride Carbon Dioxide BUN Creatinine Estimated GFR BUN/Creatinine Ratio Glucose Lactate Calcium Magnesium Total Bilirubin AST ALT Alkaline Phosphatase Ammonia < 9 L NT-Pro-B Natriuret Pep 991 H Total Protein Albumin Globulin Albumin/Globulin Ratio Procalcitonin 0.72 H 04/16/20 04/16/20 05:30 05:30 WBC 6.1 RBC 2.95 L Hgb 10.2 L Hct 30.2 L MCV 102.2 H MCH 34.4 H MCHC 33.7 RDW 15.3 H Plt Count 80 L Neut % (Auto) 68.5 Lymph % (Auto) 7.3 L [place] % (Auto) 19.0 H Eos % (Auto) 4.9 H Baso % (Auto) 0.3 Neut # (Auto) 4200 Lymph # (Auto) 400 L [place] # (Auto) 1200 H Eos # (Auto) 300 Baso # (Auto) 0 PT INR APTT Sodium 132 L Potassium 4.7 Chloride 100 Carbon Dioxide 27 BUN 32 H Creatinine 1.20 Estimated GFR > 60.0 BUN/Creatinine Ratio 26.7 H Glucose 113 H Lactate Calcium 8.6 Magnesium Total Bilirubin AST ALT Alkaline Phosphatase Ammonia NT-Pro-B Natriuret Pep Total Protein Albumin Globulin Albumin/Globulin Ratio Procalcitonin Assessment & Plan Assessment & Plan narrative: Juan Carlos Guzmán is a 65-year-old Cmale with a past medical history significant for treated hepatitis C with liver cirrhosis and complication of portal hypertension, ascites, thrombocytopenia, and hepatocellular carcinoma status post resection and treatment considered in remission, hypertension and seasonal asthma who presented to the ED with progressive worsening right lower extremity erythema and edema x5 days. 1. Acute right lower extremity cellulitis, present on admission. Active. -Patient presented with progressive worsening right lower extremity erythema and edema x5 days. -cellulitis secondary to marked peripheral edema and associated skin breakdown. -Initial WBC normal at 7.5 and procalcitonin elevated at 1.05. Continue to monitor WBC and procalcitonin daily. -Blood cultures x2 have no growth to date and wound cultures preliminarily growing staph species. -Received vancomycin in ED. Continue vancomycin with dosing per pharmacist and Zosyn 3.375 g IV every 6 hours. -Continue to elevate bilateral lower extremities above the level of the heart and diurese as below. 2. Treated Hepatitis-C with liver cirrhosis and hepatocellular carcinoma status post resection and treatment considered in remission, chronic, present on admission. Stable. -Patient has history of treated hepatitis-C with liver cirrhosis and complication of thrombocytopenia and ascites. The patient's edema has been worsening over the last several months and he is on aggressive diuresis per outpatient PCP and lawn care technician. -Initial LFTs: Total bilirubin of 2.2, AST of 66, ALT of 27 alkaline phosphatase of 103. He has a creatinine 1.3, INR 1.5. -Abdominal ultrasound on 03/07/2020 demonstrated moderate ascites with nodular margination of the liver, along the capsular borders suspect cirrhosis and portal hypertension. -CT abdomen and pelvis with and without contrast on 03/14/2020 demonstrated heterogeneous and cirrhotic margination of liver, no discrete mass with several metallic surgical clips, generalized moderate ascites, generalized moderately severe anasarca, splenomegaly, and portal hypertension. No definite acute disease. -MELD score is 22 consistent with a 19.6% average three-month mortality. -continued aggressive diuresis with home furosemide increased from 40 mg PO twice daily to 80 mg IV twice daily and home spirolactone 200 mg daily. Continue to monitor electrolytes closely and replete as necessary. -Continue 2g low-sodium diet and 1.5 L fluid restriction. -Continue strict I&Os and daily weights. -Consulted dietitian, pending. 3. Hypertension, chronic, present on admission. Stable. -Patient was previously on lisinopril which has been discontinued. -Continue aggressive diuresis with furosemide 80 mg IV daily and home spironolactone 200 mg daily. 4. Asthma, mild intermittent, chronic, present on admission. Stable. -Patient denies complaints shortness of breath or wheezing. His last asthma exacerbation was in January 2020 at which time he underwent short course of steroids. -Continue home albuterol inhaler 2 puffs every 4-6 hours as needed for shortness of breath or wheezing. Code status: Full code, patient does and needs his , Tayler Rasmussen, to be his surrogate decision maker. VTE prophylaxis: Enoxaparin Disposition: Patient will likely discharge home with home health tomorrow if cellulitis continues to improve. Quality VTE Deep Vein Thrombosis/Pulmonary Embolism Present on Admission: No
[2020-04-16] MEDS: CALCIUM CARBONATE 500 MG TAB 1000 MG PO (19:35)
[2020-04-16] MEDS: ALBUTEROL HFA 60 PUFF/8 GM INH INH (22:21)
[2020-04-17] MEDS: CALCIUM CARBONATE 500 MG TAB 1000 MG PO (00:58)
[2020-04-17 01:00] VITALS: O2SAT 98
[2020-04-17] MEDS: PIPERACILLIN-TAZO 3.375 GM/50 ML FROZ.PIGGY IV ×2 (02:32→11:04)
[2020-04-17 04:00] VITALS: BP 136/79; PULSE 83; RESP 18; TEMP 37; O2SAT 98
[2020-04-17 05:00] VITALS: O2SAT 95
[2020-04-17] MEDS: OXYCODONE IR 10 MG TABLET PO ×3 (05:07→14:56)
[2020-04-17 05:58] LABS: Add Manual Diff / Slide Review NO; Basophils Absolute Auto 0 /uL (0-100); Basophils Percent Auto 0.7 % (0-2); Eosinophils Absolute Auto 300 /uL (0-450); Eosinophils Percent Auto 4.3 % (2-4); Hematocrit 28.2 % (41-53); Hemoglobin 9.6 g/dL (13.5-17.5); Lymphocytes Absolute Auto 500 /uL (1100-4500); Lymphocytes Percent Auto 7.8 % (25-40); Mean Corpuscular HGB Conc 34.2 % (30-36); Mean Corpuscular Hemoglobin 34.6 PG (26-34); Mean Corpuscular Volume 101.4 fL (80-100); Monocytes Absolute Auto 1300 /uL (0-900); Neutrophils Absolute Auto 4300 /uL (1500-7000); Neutrophils Percent Auto 67.2 % (50-75); Platelet Count 88 X10^3/uL (150-400); Red Blood Cell Count 2.78 X10^6/uL (4.5-5.9); Red Cell Distribution Width 15.3 % (11.6-14.8); White Blood Cell Count 6.4 X10^3/uL (4.5-11.0)
[2020-04-17 06:08] LABS: Alanine Aminotransferase 22 IU/L (<50); Albumin 2.4 g/dL (3.5-5.0); Albumin Globulin Ratio 0.6 (1.0-2.8); Alkaline Phosphatase 80 U/L (38-126); Aspartate Aminotransferase 46 IU/L (17-59); BUN Creatinine Ratio 22.6 (6-22); Bilirubin Total 2.9 mg/dL (0.2-1.3); Blood Urea Nitrogen 31 mg/dL (9-20); Calcium 8.7 mg/dL (8.4-10.2); Carbon Dioxide 28 mmol/L (22-32); Chloride 98 mmol/L (98-107); Estimated Glomerular Filt Rate 52.5 mL/min (>60); Globulin 4.1 g/dL (1.7-4.1); Glucose 121 mg/dL (80-110); HEMOLYSIS < 15 (0-50); Potassium 4.6 mmol/L (3.4-5.1); Sodium 131 mmol/L (137-145); Total Protein 6.5 g/dL (6.3-8.2)
[2020-04-17 06:25] LABS: Procalcitonin 0.56 ng/mL (<0.5)
[2020-04-17 08:00] VITALS: BP 114/71; PULSE 81; RESP 20; TEMP 36.5; O2SAT 99
[2020-04-17 08:33] VITALS: O2SAT 98
[2020-04-17] MEDS: SPIRONOLACTONE 50 MG TABLET 100 MG PO (09:55)
[2020-04-17] MEDS: DOCUSATE 100 MG CAPSULE PO ×2 (09:55→10:00)
[2020-04-17] MEDS: ENOXAPARIN 40 MG/0.4 ML SYRINGE SUBCUT (09:56)
[2020-04-17] MEDS: FUROSEMIDE 20 MG/2 ML VIAL 80 MG IV (09:56)
[2020-04-17] MEDS: SODIUM CHLORIDE 0.9% FLUSH 10 ML IV (10:00)
[2020-04-17] MEDS: ALBUTEROL HFA 60 PUFF/8 GM INH INH (10:41)
[2020-04-17 10:43] VITALS: PULSE 78; RESP 20; O2SAT 96
--- NOTE | 2020-04-17 11:12 | CM.DPC ---
DCP Cont: Patient is to be discharged home today. Dr. Kamara is ordering home health for patient. Had her sign face to face. Asked patient if he has preference on home health agencies, and stated, he does not. He resides in [place] with his partner, Tayler. Patient will need nursing, P.T, O.T, and added INSURANCE CLAIMS SUPERVISOR for medical resources. [facility] is on calendar for this week. Called Serena at [facility] and let her know that patient is being discharged, and gave her information. Faxed over face sheet, face to face, orders, P.T. notes and H&P. Let her know on fax that DC summary would be faxed over when completed. P: Patient is to discharge home today with [facility]. Addis Roca RN/Cyber Security Specialist
--- NOTE | 2020-04-17 11:17 | PM.DS.1 ---
History of Present Illness History of Present Illness Date Patient Seen: 04/15/20 Chief complaint: RIGHT ANKLE SWELLING Narrative: Written by Wero ROE: Mr. Juan Carlos Guzmán is a 65-year-old male with a past medical history significant for hepatitis-C, liver cirrhosis with ascites and anasarca, liver cancer, hypertension and seasonal asthma who presents to the emergency department with right lower extremity swelling and pain for 5 days. The patient has been under the care of Dr. Pancho Payan in [place] where he has been undergoing diuresis for the last month following a 47 lb weight gain. Patient has had progressive abdominal ascites and generalized anasarca that has responded to Lasix and spironolactone therapy. The patient describes wounds developing on his lower extremities secondary to the edema and reports developing redness of his right foot and ankle extending up his lower extremity that has been progressive for 5 days. He describes the pain as a 7 to an 8/10 aching in character that is sharp with touch. The patient denies systemic symptoms of fevers or chills, dizziness, nausea or vomiting. He has no known COVID-19 exposures. He denies complaints of chest pain or palpitations. He denies shortness of breath cough or wheezing. His last asthmatic event was in January and was started on a short course of steroids. He describes mild abdominal discomfort related to distention from ascites but no focal tenderness. He describes irregular stooling and no diarrhea. He denies difficulty urinating on diuretic therapy. Patient is able to ambulate albeit limited due to pain. Upon arrival to the ER the patient is afebrile with temperature 98.4?, heart rate of 76, blood pressure 126/65, respirations of 20 saturating 99% on room air. A venous duplex is obtained which finds no DVT but notes interstitial edema. On laboratory analysis he has a white count of 7.5 with elevated monocytes at 16.4%, hemoglobin of 10.5, hematocrit 31.1 and platelets of 91. On coagulation he has a PT of 17.3, INR 1.5, PTT of 31. His electrolytes are within normal limits with a potassium 4.8 and magnesium 2.1. He has a BUN 34 and a creatinine of 1.3. His nonfasting glucose is 118. He has an elevated bilirubin 2 2, elevated AST at 66, ALT of 27 alkaline phosphatase of 103. His albumin is 2.6. He has a lactic acid of 1.5 and procalcitonin of 1.05. His BMP is and 991. The patient is admitted to the medicine service for cellulitis of the right lower extremity in the setting cirrhosis with ascites and anasarca. Discharge Providers Provider Date of admission: 04/15/20 20:24 Discharge Date: 04/17/20 Primary care physician: Pancho Payan MD Consults: 04/15/20 21:00 Consult to Dietitian, Adult Routine Comment: Reason For Exam: Obesity, cirrhosis, ascites, anasarca Consult to Discharge Planning Routine Comment: 04/16/20 10:13 Consult to Occupational Therapy Evaluate & Treat Comment: Physician Instructions: Evaluate and treat Consult to Physical Therapy Evaluate & Treat Comment: Physician Instructions: Evaluate and Treat 04/17/20 10:34 Consult to Dietitian, Adult Stat Comment: Reason For Exam: liver cirrhosis, low sodium and high protein 04/17/20 10:36 Consult to Home Health Routine Comment: Reason For Exam: FWW for home use 04/17/20 10:44 Consult to Home Health Routine Comment: Reason For Exam: Home health nursing, P.T, O.T, TOOL CLERK Discharge provider: Elizabeth Kamara DO Summary Hospital Course Discharge Diagnosis: 1. Acute right lower extremity cellulitis, present on admission. Resolving. 2. Treated hepatitis C with liver cirrhosis and hepatocellular carcinoma status post wedge resection and treatment considered in remission, chronic, present on admission. Stable. 3. Hypertension, chronic, present on admission. Stable. 4. Asthma, mild intermittent, chronic, present on admission. Stable. Hospital Course: Juan Carlos Guzmán is a 65-year-old Cmale with a past medical history significant for treated hepatitis C with liver cirrhosis and complication of portal hypertension, ascites, thrombocytopenia, and hepatocellular carcinoma status post resection and treatment considered in remission, hypertension and seasonal asthma who presented to the ED with progressive worsening right lower extremity erythema and edema x5 days. 1. Acute right lower extremity cellulitis, present on admission. Resolving. -Patient presented with progressive worsening right lower extremity erythema and edema x5 days. -cellulitis secondary to marked peripheral edema and associated skin breakdown. -Initial WBC normal at 7.5 and procalcitonin elevated at 1.05. WBC remain normal and procalcitonin trended down to 0.56. Continued to monitor WBC and procalcitonin daily. -Blood cultures x2 have no growth to date and wound cultures grew staph sciuri intermediate to levofloxacin. -Right lower extremity venous Doppler ultrasound negative for DVT. -Received vancomycin in ED. Continued vancomycin with dosing per pharmacist and Zosyn 3.375 g IV every 6 hours. Discharged on Keflex 500 mg twice daily and doxycycline 100 mg twice daily for 12 additional days to complete 14 days total of treatment. -Continued to elevate bilateral lower extremities above the level of the heart and diurese as below. -Continued physical therapy evaluation and treatment 2. Treated hepatitis C with liver cirrhosis and hepatocellular carcinoma status post wedge resection and treatment considered in remission, chronic, present on admission. Stable. -Patient has history of treated hepatitis-C with liver cirrhosis, portal hypertension, splenomegaly, thrombocytopenia, ascites, and hepatocellular carcinoma status post wedge resection and treatment considered in remission. The patient's edema has been worsening over the last several months and he is on aggressive diuresis per outpatient PCP and budget and policy analyst. -Initial LFTs: Total bilirubin of 2.2, AST of 66, ALT of 27 alkaline phosphatase of 103. He has a creatinine 1.3, INR 1.5. -Abdominal ultrasound on 03/07/2020 demonstrated moderate ascites with nodular margination of the liver, along the capsular borders suspect cirrhosis and portal hypertension. -CT abdomen and pelvis with and without contrast on 03/14/2020 demonstrated heterogeneous and cirrhotic margination of liver, no discrete mass with several metallic surgical clips, generalized moderate ascites, generalized moderately severe anasarca, splenomegaly, and portal hypertension. No definite acute disease. -MELD score is 22 consistent with a 19.6% average three-month mortality. -Continued aggressive diuresis with furosemide 80 mg IV twice daily which was switched to 80 mg PO twice daily and continued home spirolactone 200 mg daily. Continue to monitor electrolytes closely and replete as necessary. -Continued 2g low-sodium diet and 1.5 L fluid restriction. -Continued strict I&Os and daily weights. Net -6145 L. -Consulted dietitian and we appreciate her time and recommendations. -Continue close outpatient follow-up with hepatology at [facility]. 3. Hypertension, chronic, present on admission. Stable. -Patient was previously on lisinopril which has been discontinued. -Continued aggressive diuresis as above and discharged on furosemide 80 mg twice daily and spironolactone 200 mg daily. 4. Asthma, mild intermittent, chronic, present on admission. Stable. -Patient denies complaints shortness of breath or wheezing. His last asthma exacerbation was in January 2020 at which time he underwent short course of steroids. -Continued home albuterol inhaler 2 puffs every 4-6 hours as needed for shortness of breath or wheezing. Exam Vital Signs (past 8 hours): - 04/17/20 04:00 04/17/20 05:00 04/17/20 08:00 Temperature 98.6 F 97.7 F Pulse Rate 83 81 Respiratory Rate 18 20 Blood Pressure 136/79 114/71 Pulse Oximetry 98 95 99 04/17/20 08:33 04/17/20 10:43 Temperature Pulse Rate 78 Respiratory Rate 20 Blood Pressure Pulse Oximetry 98 96 Oxygen Delivery Method Room Air Oxygen Flow Rate 0 Narrative Exam Narrative: General: Older gentleman sitting in bed and in no acute distress, appears older than stated age, well-developed, well-nourished, appropriately interactive. HEENT: Normocephalic, atraumatic. External ears without defect. Pupils equal, round, and reactive to light. Anicteric sclerae, moist conjunctivae, and no lid lag. Oropharynx free of erythema and cobble stoning with moist mucosa. Poor dentition. Neck: Supple with full range of motion. No jugular venous distension. No lymphadenopathy or thyromegaly. Cardiovascular: Regular rate and rhythm without murmurs, rubs, or gallops appreciated Pulmonary: Clear to auscultation bilaterally without crackles, wheezes, or rhonchi. Normal respiratory effort with no use of accessory muscles. Abdomen: Soft, obese, nontender, nondistended. No hepatosplenomegaly or masses appreciated. Extremities: No clubbing or cyanosis. Mild to moderate dependent pitting edema to abdominal wall and hips bilaterally that has improved. Right lower extremity with erythema and warmth to pretibial area that is tender to touch and regressing. Skin: Normal temperature, turgor, and texture; several small maculopapular lesions/keratoses on bilateral lower extremities. Neurological: Cranial nerves grossly intact. Psychiatric: Normal mood and affect. Alert and oriented to person, place, and time. Poor insight. Objective Labs Result Diagrams: 04/17/20 05:40 04/17/20 05:40 Labs: Laboratory Results - last 24 hr 04/17/20 04/17/2020 05:40 05:40 05:40 WBC 6.4 RBC 2.78 L Hgb 9.6 L Hct 28.2 L MCV 101.4 H MCH 34.6 H MCHC 34.2 RDW 15.3 H Plt Count 88 L Neut % (Auto) 67.2 Lymph % (Auto) 7.8 L [place] % (Auto) 20.0 H Eos % (Auto) 4.3 H Baso % (Auto) 0.7 Neut # (Auto) 4300 Lymph # (Auto) 500 L [place] # (Auto) 1300 H Eos # (Auto) 300 Baso # (Auto) 0 Sodium 131 L Potassium 4.6 Chloride 98 Carbon Dioxide 28 BUN 31 H Creatinine 1.37 H Estimated GFR 52.5 L BUN/Creatinine Ratio 22.6 H Glucose 121 H Calcium 8.7 Magnesium 2.0 Total Bilirubin 2.9 H AST 46 ALT 22 Alkaline Phosphatase 80 Total Protein 6.5 Albumin 2.4 L Globulin 4.1 Albumin/Globulin Ratio 0.6 L Procalcitonin 0.56 H Discharge Plan Discharge Plan Patient Disposition: Home Health Service Discharge comment: You are being discharged home with home health for physical therapy, occupational therapy, nursing, and manager social responsibility. You had cellulitis of your right lower extremity. You have been prescribed keflex 500 mg twice daily and doxycycline 100 mg twice daily for 12 additional days to complete 14 days total of antibiotic therapy. Please keep your leg dry and clean. Please keep your legs elevated above the level of the heart throughout the day when you are not up and moving to help keep fluid off them. Your furosemide dose has been increased to 80 mg twice daily and spironolactone 200 mg daily. Please follow-up with your primary care physician, Dr. Payan, regarding your hospitalization for cellulitis and to recheck your blood counts and your kidney function at your scheduled appointment. Please follow-up with your budget and policy analyst as soon as available regarding continued management of your liver cirrhosis. Discharge orders & Medications Prescriptions: New cephalexin [Keflex] 500 mg capsule 500 mg PO BID Qty: 12 RF: 0 doxycycline hyclate 100 mg capsule 100 mg PO BID Qty: 12 RF: 0 Continued albuterol sulfate 90 mcg/actuation aerosol powdr breath activated 2 inhalation INHALATION Q4-6H PRN (Reason: shortness of breath or wheezing) Qty: 1 RF: 6 spironolactone 50 mg tablet 200 mg PO DAILY RF: 0 Changed furosemide 20 mg tablet 80 mg PO BID Qty: 0 RF: 0 Follow up/Referrals: Pancho Payan MD [Primary Care Provider] - 04/24/20 11:00 am (appt: 04/24 @ 11:00 with Maria PERRY please arrive 15 minutes prior to your scheduled appointment ) Diet/Activity/Treatments Diet: Low-fat, Low-sodium and Low-cholesterol Diet comment: Low-sodium < 2000 mg or 2g a day, 1.5 L Fluid restriction Activity: Activity as tolerated with forward wheeled walker and physical and occupational therapy Skin/Wound/Dressing Care Skin care: Keep legs clean and dry (pat to dry) Visit Report/Discharge Packet Instructions: DI for Cellulitis -- Adult, DI for Cirrhosis, How To Perform RICE (Rest, Ice, Compress, Elevate), Fluid Restricted Diet, Low-Sodium Diet Visit Report Forms: Patient Portal/API, Stroke Signs & Symptoms Discharge Data Primary Care Provider: Pancho Payan Quality VTE Deep Vein Thrombosis/Pulmonary Embolism Present on Admission: No
--- NOTE | 2020-04-17 11:29 | DIET.PN ---
Dietary Progress Note Assessment: 65y M admitted for cellulitis of R ankle referred to nutrition for liver cirrhosis for education on low sodium and high protein diet. Pt has patchy psoriasis over body, pt scratching at patches intermittently through interview. 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 Usual Day (for past 3mo while trying to lose weight): not usually hungry in AM but tries to eat an egg or sardines c 1 c coffee c splash 2% milk and water L: poached or HB egg c homemade kimchi (probiotic) or pickled beets D: home rotisserie chicken stuffed c fresh herbs and vegetable (snow peas) HS: plain lowfat yogurt c berries Pt reports extended family lives nearby and tries to good by dropping off meals (pasta) and treats, pt has been attempting to slow this but admits to having low will power if treats are dropped off. Pt describes searing and deglazing meat for flavor instead of using salt, using fresh and dried herbs, when making Palestinian style food using garlic and jorge instead of soy sauce. Pt tries to avoid rice r/t overeating it so has tried cauliflower rice which is acceptable. HT: 180.3cm WT: 161.5kg BMI: 49.7 MNA: 10 Zacarias: 21 Nutrition Diagnosis: inadequate intake of dietary protein r/t reduced ability to make albumin secondary to liver cirrhosis aeb pts large body habitus means high protein requirement (100g/d), FFQ showing pt only consuming 70% PRO reccs daily, pt experiencing LLE. Interventions: 1. Discussed at length current diet and ways to meet 100g/d PRO goal. Collaborated c pt on strategies to bump up intake including having an egg and can of sardines for breakfast, 50% more chicken at dinner, and combining protein foods during meals such as coating shrimp c peanut butter sauce. 2. Discussed importance of low sodium diet to manage fluid retention. While pt's diet is low in ultra-processed foods notoriously high in sodium as preservative, pt eats salty foods daily: sardines, pickled veggies, kimchi. Discussed techniques like purchasing unsalted canned fish, rinsing canned fish, continuing to eat home pickled/fermented foods but moderating portion sizes. 3. Discussed dietary strategies for psoriasis, encouraged pt to expose arms and legs while gardening in summer for UV rays and Vitamin D synthesis, continue intake of high omega 3 foods such as unsalted sardines.
--- NOTE | 2020-04-17 11:30 | PT.IPTN ---
Current Diagnoses Cellulitis of right lower limb (04/15/20) Physical Therapy Treatment Note M2 PT-IP Current Condition Start: 04/16/20 11:48 Freq: NEEDED Status: Active Protocol: Document 04/16/20 15:31 AW (Rec: 04/16/20 16:05 AW [id number]) Physical Therapy Current Condition Current Condition Evaluation Date 04/16/20 Treatment Diagnosis RLE cellulitis; difficulty in walking Onset Date 04/15/20 M3 PT-IP Subjective Start: 04/16/20 11:48 Freq: NEEDED Status: Active Protocol: Document 04/17/20 11:19 HH (Rec: 04/17/20 11:29 HH [id number]) Subjective Physical Therapy Visit Type Type Treatment Note Visit Start Time 10:10 Visit Stop Time 10:25 Total Visit Minutes 15 Physical Therapy Visit Comments Patient Comments Pt is willing to participate with PT. stated Im feeling better today. Patient Goals Pt hopes to return home with family support Therapy Pain Assessment Pain When Pain Assessed During Mobility Pain Present Pain Present Pain Reported Location Right Leg Intensity 2 Scale Used Numeric (0 - 10) Pain Management Techniques Timing of Activity with Medications M4 PT-IP Mobility and Gait Start: 04/16/20 11:48 Freq: NEEDED Status: Active Protocol: Document 04/17/20 11:19 HH (Rec: 04/17/20 11:29 HH [id number]) PT-Transfer Assessment Sit to and From Stand Sit to and from Stand Standby Assistance,Minimal Assistance,Use of Upper Extremities Equipment Transfer Assistive Device Gait Belt,Front Wheeled Walker Orthotic/Prosthetic Devices or Brace: No Transfers Transfer Destination Chair Transfer Technique FWW Transfer Ability Level of Assist Standby Assistance,Use of Upper Extremities Comments Mobility Comments Pt was up in chair upon PT arrival. Reports better feeling on his R ankle with less pain. Pt was able to stand up by pushing off through armrests primarily. He then proceed to amb staircase with SBA and FWW for step training. Pt was able to amb close to baseline with minimal pain. He then walked back to his room and returned to chair after with SBA. Pt appeared steady and no signs of LOB with using FWW. He stated i feel better with the walk at this point. pt sat in chair comfortably after and call light placed within reach. Gait Assessment Gait Gait Assistance Required: Standby Assistance,Contact Guard Assist Distance (Feet) 160 Assistive Devices Assistive Device None,Gait Belt,Front Wheeled Walker Orthotic/Prosthetic Devices or Brace: No Gait Deviations General Gait Pattern Antalgic,Decreased Stride Length,Decreased Feet Clearance,Flexed Trunk,Step-to Gait,Wide Based Gait Factors Limiting Gait Function Factors Limiting Gait Function Decreased Activity Tolerance, Decreased Sensation,Decreased Strength,Difficulty Following Directions,Limited Range of Motion,Pain,Poor Balance,Poor Safety Awareness Comments Gait Comments see mobility comments Stair Climbing Assessment Evaluation Level of Assist On Stairs Standby Assistance,Contact Guard Assistance Devices Stair Climbing Assistive Devices Front Wheel Walker Technique/Endurance Stair Climbing Direction Ascend and Descend Stair Climbing Technique Step to Step Number of Steps Climbed 1 Stair Climbing Set # Repetitions (reps) 2 Comments Stair Climbing Comments Pt completed platform step training with FWW. He needed cue to keep his body close to walker and edge of the step. He was able to lead with L for ascending and with R for descending. Pt then needed minimal cue for second trial. He was safe overall but preferred using FWW than crutch. PT-Balance Assessment Sitting Balance and Reactions Static Sitting Balance Ability Good Dynamic Sitting Balance Ability Good Standing Balance and Reactions Static Standing Balance Ability Good Dynamic Standing Balance Ability Good Device Used FWW M5 PT-IP Objective Assessments Start: 04/16/20 11:48 Freq: NEEDED Status: Active Protocol: Document 04/16/20 15:31 AW (Rec: 04/16/20 16:05 AW [id number]) Orientation Orientation/Cognition Level of Alertness Alert Orientation Name,Day of Week,Place, Situation Language Function Ability No Deficits Noted Safety Awareness Decreased Safety Awareness Memory Description No Deficits Noted Gross Range of Motion Lower Extremity ROM Assessment Right Impaired Impairments Lacking right ankle dorsiflexion due to swelling and pain Strength Lower Extremity Strength Assessment Bilaterally Impaired Hip 4-/5 Knee 4/5 Ankle L 4+/5; R 3-/5 Coordination Assessment Gross Coordination Gross Coordination WNL Sensation Assessment Sensation Gross Sensation Right LE Impaired Comments Sensation Comments Pt denies sensation impairment R LE per history but agrees on exam that distal R LE sensation is diminished. Muscle Tone Muscle Tone WNL Yes M6 PT-IP Treatment Start: 04/16/20 11:48 Freq: NEEDED Status: Active Protocol: Document 04/17/20 10:10 HH (Rec: 04/17/20 11:30 [id number]) Physical Therapy Treatment Education Education Provided Safety Equipment Issued Equipment Type and Company dispensed FWW to pt with proper height. Educated pt to use it for stair climbing. M7 PT-IP Assessment and Plan Start: 04/16/20 11:48 Freq: NEEDED Status: Active Protocol: Document 04/17/20 11:19 (Rec: 04/17/20 11:29 [id number]) PT Summary Assessment and Plan Potential Rehabilitation Potential Good Status of Condition at Evaluation Stable Summary Impairments Pain,ROM,Strength,Balance, Sensation,Bed Mobility, Transfers,Gait,Activity Tolerance Progress Towards Goals Safe For Discharge Assessment Summary Pt showed significant improvements today with amb distance and balance. He was able to complete platform step training with CGA/SBAand FWW. Pt overall feels safe to use FWW over crutch. Dispensed FWW to pt for home use. Pt is safe to be d/c home with home health d/t his overall limited mobility and strength. Goals Bed Mobility Goal Independent Transfer Goal Independent,Front Wheeled Walker Gait Goal Independent,Front Wheel Walker Gait Distance 100 Other Goals - up/down single step with FWW SBA Days to Meet Goals 3 Frequency of Treatment Frequency Of Treatment Once a Day Recommendations To Nursing Amount of Assist Needed Standby Assistance Discharge Recommendations PT Discharge Recommendations Home with Assistance,Home Health Transportation Needs at Discharge Private Vehicle
[2020-04-17] MEDS: VANCOMYCIN 1,500 MG/300 ML FROZ.PIGGY 200 MG IV (11:55)
--- NOTE | 2020-04-17 14:27 | OT.IP.EVAL ---
Current Diagnoses Cellulitis of right lower limb (04/15/20) Past Medical History (Last Reviewed 04/15/20 @ 23:31 by BHUPINDER Brandon) Anasarca (Acute) Ascites (Acute) Asthma (Chronic) Elevated brain natriuretic peptide (BNP) level (Acute) Hepatitis C (Acute) Hypertension (Chronic) Liver cancer (Acute) Liver cirrhosis (Acute) Surgical History (Last Reviewed 04/15/20 @ 23:31 by BHUPINDER Brandon) History of surgery of liver (Acute) Occupational Therapy Inpatient Evaluation/Re-Eval M1 PT/OT-IP Prior Functional Status Start: 04/17/20 14:48 Freq: NEEDED Status: Active Protocol: Document 04/17/20 13:38 [facility] (Rec: 04/17/20 15:03 [facility] [id number]) Medical Review Prior Functional Status Medical History Reviewed Yes Communication WNL. Pt is an effective verbal communicator. Mobility and Gait Pt walks household and short community distances with a single crutch typically on his left side Activities of Daily Living and IADL's Pt reports he wears pants with elastic waistbands which he can marisol independently but that he requires assist with his shoes and socks partly due to swelling. Pt showers with SBA and completes all toileting independently. Prior Functional Level (Other details) Pt does not drive if he doesn't have to. He depends on his , [place], for transportation. Social History Household Members spouse Living Arrangements Mobile home Number of Floors (Floors) One Floor Number of Stairs To Enter/Railing? Pt describes a packed earth ramp and one single step to enter through the front door. Home Environment Standard Height Toilet,Tub/ Shower Home Equipment Straight Cane,Crutches Additional Social History Comment Pt lives with his who works multimedia specialist at [employer]. She is off work on Tuesdays and Wednesdays. Pt's daughter lives in her own trailer on the same property. M2 OT-IP Current Condition Start: 04/17/20 14:48 Freq: Status: Active Protocol: Document 04/17/20 13:38 [facility] (Rec: 04/17/20 15:03 [facility] [id number]) Occupational Therapy Current Condition Current Condition Evaluation Date 04/17/20 Treatment Diagnosis Cellulitis of RLE Diagnosis Onset Date 04/15/20, decreased self care M3 OT- IP Subjective and Pain Start: 04/17/20 14:48 Freq: Status: Active Protocol: Document 04/17/20 13:38 [facility] (Rec: 04/17/20 15:03 [facility] [id number]) OT- Subjective Occupational Therapy Visit Type Type Initial Evaluation Visit Start Time 13:38 Visit Stop Time 14:27 Total Visit Minutes 49 Occupational Therapy Visit Comments Patient Comments Pt agreeable to shower. Patient/Caregiver Goals To go home. To get back to doing his [employer] business as tolerated. OT Pain Assessment Pain When Pain Assessed At Rest Pain Present Pain Present Denied Pain M4 OT- IP ADL's Start: 04/17/20 14:48 Freq: Status: Active Protocol: Document 04/17/20 13:38 [facility] (Rec: 04/17/20 15:03 [facility] [id number]) OT [id number] Comments OT Self-Feeding Comments Not at meal time. OT ADL-Grooming Comments OT Grooming Comments Pt did prior. OT ADL-Dressing General Eval Lower Body Dressing Ability Maximum Assistance Areas Needing Assistance Pants/Shorts,Socks,Shoes Assistive Devices Dressing Assistive Devices Long Handled Shoe Horn,Publications Inspector ,Sock Aid Comments OT Dressing Comments Pt having trouble to reach his feet due to swelling and therefore educated and issued pt LB dressing equipment so able to be more independent with LB dressing needs. OT ADL-Toileting Comments OT Toileting Comments Pt not having to go. Pt states go to urinate at night every 2 hours and suggested may be helpful to use a urinal at night. OT ADL-Bathing Bathing Type Bathing Type Shower General Evaluation Bathing Ability Standby Assistance Comments OT Bathing Comments Pt able to stand for the shower and having use of grab bars for balance. Pt states to have more bars installed in the shower and realizes may need at shower chair or tub bench if having more difficulty in the future. M5 OT- IP IADL's Start: 04/17/20 14:48 Freq: Status: Active Protocol: Document 04/17/20 13:38 [facility] (Rec: 04/17/20 15:03 [facility] [id number]) OT-Instrumental Activities of Daily Living Deficits IADL Deficits Identified Deficits Home Safety Awareness Awareness of Need for Assistance at Home Good Awareness Ability to Problem Solve Emergency Able to Problem Solve Situations Medication Management Medication Management Comments Pt states sets up his medications Money Management Money Management Comments Pt's does the finances but feels that he will let his take over due to having had too much stress lately from his medical conditions. Meal Preparation Meal Preparation Caregiver Provides Assist Slide Fastener Repairer Slide Fastener Repairer Caregiver Provides Assist Driving Driving Caregiver Provides Assist M6 OT- IP Functional Cognition Start: 04/17/20 14:48 Freq: Status: Active Protocol: Document 04/17/20 13:38 [facility] (Rec: 04/17/20 15:03 [facility] [id number]) Cognitive Factors Limiting Selfcare Function Cognitive Ability Level of Alertness Alert Patient Orientation Name,Place,Situation Attention Span Ability Capable of Focused Attention, Capable of Sustained Attention Ability to Follow Commands Able to Follow Multi-Step Commands Safety Awareness No Deficits Noted Problem Solving Ability No deficits Noted Cognitive Comments Cognitive Assessment Comments Pt able to problem solve well for Adl needs and appears to be at baseline for cognition. OT- Vision and Hearing OT- Vision Assessment Vision Assessment Comments Pt has prescription glasses but does not wear them all the time. Pt able to read the clock. M7 OT- IP Mobility and Balance Start: 04/17/20 14:48 Freq: Status: Active Protocol: Document 04/17/20 13:38 [facility] (Rec: 04/17/20 15:03 [facility] [id number]) OT-Transfer Assessment Sit to and From Stand Sit to and from Stand Standby Assistance Transfers Transfer Ability Standby Assistance,Contact Guard Assistance Technique Transfer Destination Chair,Shower Stall Devices Transfer Assistive Devices Gait Belt,Front Wheeled Walker Comments Mobility Comments Stimulated stepping into a tub and pt needing CGA for balance. Pt states will assist and looking to place more grab bars to increased the ease and independence of transfer. Educated on tub bench as an option to increase getting into the tub. OT- Gait Assessment Comments Gait Ability Comments SBA with FWW. OT- Balance Assessment Sitting Balance and Reactions Static Sitting Balance Ability Normal Dynamic Sitting Balance Ability Good Standing Balance and Reactions Static Standing Balance Ability Good M8 OT- IP Objective Assessments Start: 04/17/20 14:48 Freq: Status: Active Protocol: Document 04/17/20 13:38 [facility] (Rec: 04/17/20 15:03 [facility] [id number]) OT Gross Range of Motion Upper Extremity Range of Motion Assessment Within Functional Limits OT Strength Upper Extremity Strength Assessment Within Functional Limits M9 OT- IP Assessment and Plan Start: 04/17/20 14:48 Freq: Status: Active Protocol: Document 04/17/20 13:38 [facility] (Rec: 04/17/20 15:03 [facility] [id number]) OT Summary Assessment and Plan Potential Rehabilitation Potential Good Analytic Complexity at Evaluation Low Summary OT Impairments Functional Mobility,Dressing, Toileting,Bathing,Toilet Transfers,Shower Transfers, Activity Tolerance Progress Towards Goals Progressing Toward Goals Assessment Summary Pt low complexity and main barriers are decreased activity tolerance, decreased independence for ADl's due to his swelling and now having to use FWW for balance for mobility needs. OT able to issue LB dressing equipment to increase safety and ease for ADl's, suggest use of urinal at night, and possible get a tub bench if getting into and out of the tub becomes a difficulty. Now pt is able to manage and additionally going to install more grab bars in the shower and also able to assist. Also spoke to pt regarding energy conservation strategies to use for ADl and IADL needs at home. Goals Grooming Goal Independent Dressing Goal Minimal Assistance Toileting Goal Independent Bathing Goal Independent Toilet Transfer Goal Independent Shower Transfer Goal Contact Guard Assistance Patient/Caregiver Education Goal Demonstrate Energy Conservation and Pacing Days to Meet Goals 1 Frequency of Treatment Frequency Of Treatment Once a Day Treatment Plan OT Treatment Plan ADL Training,Functional Mobility,Patient/Family Education,Discharge Planning Discharge Recommendations OT Discharge Recommendations Home with Assistance Transportation Needs at Discharge Private Vehicle
--- NOTE | 2020-04-17 14:28 | CM.DPC ---
DCP cont: Faxed discharge summary to [facility] at fax # [phone]. Fax confirmation scanned in. Courtney García, Care Asian Studies Program Chair
== END 2020-04-17 15:14 | disposition home health service (06) | DRG 603 ==
LOC: ED 17:51 → AC 20:55
PROVIDERS: Internal Medicine; Admitting Provider Nurse Practitioner Adult Health; Emergency Provider Nurse Practitioner Family; PCP Internal Medicine; Visit Provider Nurse Practitioner Adult Health
DX: L03.115 Cellulitis of right lower limb (principal); R18.8 Other ascites; Z68.42 Body mass index [BMI] 45.0-49.9, adult; K74.69 Other cirrhosis of liver; D69.59 Other secondary thrombocytopenia; K74.60 Unspecified cirrhosis of liver; B18.2 Chronic viral hepatitis C; E66.9 Obesity, unspecified; Z85.05 Personal history of malignant neoplasm of liver; I10 Essential (primary) hypertension; J45.909 Unspecified asthma, uncomplicated
CPT/HCPCS: 36415; 80048; 80053; 82140; 83605; 83735; 83880; 84145; 85025; 85610; 85730; 87040; 87070; 87075; 87077; 87186; 87205; 93971; 94640; 96365; 97116; 97161; 97165; 97530; 97535; 99284; J1170; J1642; J1650; J1940; J2543

== ENCOUNTER → 2020-07-03 09:32 | Outpatient (CLI) | payer MEDICARE, MEDICAID, SELFPAY ==
[2020-04-15 20:51] VITALS: BMI 49.6
--- NOTE | 2020-07-03 10:38 | DI.CT.S_ITS ---
PROCEDURE: CT ABDOMEN WO/W CON INDICATIONS: Liver cell carcinoma TECHNIQUE: 4 phase scanning was performed. Non-contrast 5 mm axial sections acquired from the diaphragm to the iliac crests. Following the administration of intravenous contrast, 5 mm thick arterial-phase, portal venous-phase, and 5-minute delayed phase images were acquired through the liver. 5 mm thick coronal and sagittal reformats were performed. For radiation dose reduction, the following was used: automated exposure control, adjustment of mA and/or kV according to patient size. COMPARISON: [facility], CT, CT ABDOMEN WO/W CON, 03/14/2020, 11:31. FINDINGS: Image quality: Excellent. Lung bases: Lung bases demonstrate right middle lobe and lingular atelectatic changes. Heart size is normal. Liver: The liver is nodular and cirrhotic. 7 fiducial markers are present within the liver. Parenchyma attenuation is diffusely heterogeneous, particularly involving segments V and . A definite discrete arterially enhancing lesion is not identified. A moderate amount of ascites is present. There are few scattered areas of the precontrast hyperintensity adjacent to the IVC and in segment V. There is recanalization of the umbilical vein. Other solid organs: Gallbladder is distended and contains a calcified stone dependently in the neck. The spleen is enlarged measuring 13.4 x 15.8 cm. There is a splenule in the hilum. A 2.1 cm left adrenal nodule remains indeterminate and continued attention to this area is suggested. . Biliary system is non dilated. Pancreas is normal in morphology. Both kidneys demonstrate normal size and enhancement, without hydronephrosis or nephrolithiasis. Nodes and vessels: No retroperitoneal or mesenteric adenopathy by size criteria. Aorta and inferior vena cava are normal in size. Bowel and peritoneum: Unenhanced bowel loops are normal in caliber. No free fluid or air. Bones: No suspicious bony lesions. No vertebral body compression fractures. Minor chronic wedge deformity of T11. Miscellaneous: No ventral hernias. Diffuse body wall anasarca IMPRESSION: 1. Cirrhotic liver without definite new arterially enhancing nodule. 2. Evidence of portal hypertension including moderate, stable splenomegaly, ascites, and umbilical vein recanalization. 3. Stable indeterminate left adrenal nodule for which continued attention is recommended. Dictated by: Janina Campos M.D. on 07/03/2020 at 11:16 Approved by: Janina Campos M.D. on 07/03/2020 at 11:31
== END ==
PROVIDERS: PCP Internal Medicine; Referring Provider Internal Medicine Transplant Hepatology; Visit Provider Internal Medicine Transplant Hepatology
DX: C22.0 Liver cell carcinoma (principal); K74.60 Unspecified cirrhosis of liver; R16.1 Splenomegaly, not elsewhere classified; E27.9 Disorder of adrenal gland, unspecified; R18.8 Other ascites; K76.6 Portal hypertension; Z86.19 Personal history of other infectious and parasitic diseases
CPT/HCPCS: 74170; Q9967

== ENCOUNTER 2020-08-21 09:23 | Emergency (ER) | payer MEDICARE, MEDICAID, SELFPAY ==
[2020-04-15 20:51] VITALS: BMI 49.6
[2020-08-21 09:50] VITALS: BP 113/56; PULSE 98; RESP 16; O2SAT 100; BMI 27.8
--- NOTE | 2020-08-21 09:50 | DI.RAD.S_ITS ---
PROCEDURE: XR RIBS LT MIN 3V W CXR1V INDICATIONS: fall/rib pain TECHNIQUE: 2 views of the left ribs were acquired, along with a single view chest. COMPARISON: None. FINDINGS: Surgical changes and devices: None. Bones and chest wall: There is a displaced fracture involving left posterior 7th rib. No suspicious bony lesions. Overlying soft tissues appear unremarkable. Lungs and pleura: No pleural effusions or pneumothorax. Mild pulmonary vascular congestion is seen. No focal infiltrate. Mediastinum: Mediastinal contours appear normal. Heart size is normal. IMPRESSION: Displaced left posterior 7th rib fracture. No pneumothorax. Dictated by: Silvano Charles M.D. on 08/21/2020 at 9:10 Approved by: Silvano Charles M.D. on 08/21/2020 at 9:14
--- NOTE | 2020-08-21 10:18 | ED_ITS ---
HPI - Fall General Chief Complaint: Fall Stated Complaint: Fell, Hurt Left side of ribs and neck Time Seen by Provider: 08/21/20 10:05 Source: patient Mode of arrival: Ambulatory Limitations: no limitations History of Present Illness HPI Narrative: This is a 65-year-old male comes emergency department with concern for rib fracture and left-sided chest pain. Patient states on Wednesday he had a fall he was stepping up on his patio and fell onto the left side directly onto the edge of the patio on his left ribs. Since then he has continued to have pain been increased in the last day or 2. Patient states no fevers, no lightheadedness, no passing-out, no shortness of breath. He does have increased pain with inspiration. No GI or urinary symptoms. Patient does not take any anticoagulants or aspirin. Patient states that he has tried some hydrocodone which is minimally helpful. He states that he just tripped and caught his toe while going up the patio he denies any other symptoms. He denies hitting his head. Denies any neck or back pain. Patient lower extremity swelling and is continuing to have improvement in the swelling. He has follow- up Wednesday with his primary care physician. He came in today because his symptoms were not improving. Patient does have a history of liver issues and is not supposed to take any Tylenol or NSAIDS. Related Data Home Medications Medication Instructions Recorded Confirmed spironolactone 200 mg PO DAILY 04/15/20 04/15/20 Previous Rx's Medication Instructions Recorded albuterol sulfate 90 mcg/actuation 2 inhalation INHALATION Q4-6H PRN 01/23/20 breath activated powder inhaler #1 each cephalexin [Keflex] 500 mg PO BID #12 cap 04/17/20 doxycycline hyclate 100 mg PO BID #12 cap 04/17/20 furosemide 80 mg PO BID #0 tab 04/17/20 oxycodone 5 mg PO Q6H PRN #14 tab 08/21/20 Allergies Allergy/AdvReac Type Severity Reaction Status Date / Time No Known Drug Allergies Allergy Verified 01/23/20 10:24 Review of Systems Review of Systems ROS Unobtainable: All systems reviewed & are unremarkable except as noted in HPI and below Patient History Medical History Anasarca (Acute) Ascites (Acute) Asthma (Chronic) Elevated brain natriuretic peptide (BNP) level (Acute) Hepatitis C (Acute) Hypertension (Chronic) Liver cancer (Acute) Liver cirrhosis (Acute) Surgical History History of surgery of liver (Acute) Family History Father Trauma Mother Sjogrens syndrome Sister No significant medical problems Social History household members: spouse Smoking Status: Never smoker alcohol intake: never Smoking Status: Never smoker alcohol intake frequency: 0-2 drinks per day Substance Use Type: marijuana Exam Narrative Exam Narrative: GEN: Patient appears in mild distress. Patient sitting on the edge of the gurney. HEAD: No evidence of trauma, no raccoon/Grace sign. NECK: Nontender, painless range of motion, trachea midline Negative Nexus criteria, there is no mid line tenderness, distracting injury, altered mental status, neuro deficit, recent EtOH. EYES: PERRLA, EOMI ENT: External inspection normal, trachea is midline. RESP: Chest is tender in the left lower lateral ankle, he has symmetric movement, no ecchymosis, breath sounds are normal no crackles, wheezes or rales, no tachypnea accessory muscle use. CVS: Heart sounds are normal, no murmur noted, No JVD. Patient does have bilateral lower extremity edema. ABG/GI: Nontender, soft, normal bowel sounds, no distention, no organomegaly, pelvic rock is negative NEURO: Oriented AOx3, neuro is grossly intact, sensation and motor is normal all 4 extremities moving, cranial nerves II through XII are intact, GCS is 15 PSYCH: Normal mood and affect SKIN: Intact, warm and dry, no crepitus and without decubitus BACK: No CVA tenderness, no vertebral tenderness, no step-off's, no crepitus EXT: Atraumatic, normal range of motion of extremities with normal tendon exam, 2+ pulses in all four extremities Initial Vital Signs Initial Vital Signs: Vital Signs Pulse Rate 98 H 08/21/20 09:50 Respiratory Rate 16 08/21/20 09:50 Blood Pressure 113/56 L 08/21/20 09:50 Pulse Oximetry 100 08/21/20 09:50 Scores GCS [place] coma scale eye opening: Spontaneous Ricardo coma scale verbal response: Orientated Ricardo coma scale motor response: Obey commands Ricardo coma scale total score: 15 Course Orders Ordered: ED Orders 08/21/20 09:50 XR ribs LT min 3V w CXR1V Stat Vital Signs Vital signs: Vital Signs - 8 hr 08/21/20 11:08 Pulse Rate 72 Respiratory Rate 16 Blood Pressure 110/68 Pulse Oximetry 98 MDM - Fall Imaging Data Chest x-ray: Radiologist's Impression: [address] [address] XRay Report Signed Patient: Juan Carlos Guzmán [facility]#: [id number] : 7Acct:[id number] Age/Sex: 65 / MDate of Service: 08/21/20 Loc: ED Accession Number: [id number] Procedure: XR ribs LT min 3V w CXR1V Ordering Provider: Sharri Davis D.O. PROCEDURE: XR RIBS LT MIN 3V W CXR1V INDICATIONS: fall/rib pain TECHNIQUE: 2 views of the left ribs were acquired, along with a single view chest. COMPARISON: None. FINDINGS: Surgical changes and devices: None. Bones and chest wall: There is a displaced fracture involving left posterior 7th rib. No suspicious bony lesions. Overlying soft tissues appear unremarkable. Lungs and pleura: No pleural effusions or pneumothorax. Mild pulmonary vascular congestion is seen. No focal infiltrate. Mediastinum: Mediastinal contours appear normal. Heart size is normal. IMPRESSION: Displaced left posterior 7th rib fracture. No pneumothorax. Dictated by: Silvano Charles M.D. on 08/21/2020 at 9:10 Approved by: Silvano Charles M.D. on 08/21/2020 at 9:14 [facility] Narrative Medical decision making narrative: Patient comes in has a left posterior rib fracture, patient is most 4 days out from his initial fall. Vitals appear to be stable although very slightly tachycardic initially. Patient has been taking hydrocodone, given a prescription for oxycodone. He has follow-up on Wednesday with his primary care physician. Patient was also given incentive spirometer along with teaching by RT. And guidance given for signs and symptoms to watch for and reasons to return. Discharge Plan Departure Patient Disposition: Home Clinical Impression: Closed rib fracture Discharge Date/Time: 08/21/20 11:09 Instructions: DI for Rib Fracture Activity Restrictions/Additional Instructions: Follow-up with your physician at your appointment on Wednesday. Continue your other home medications as prescribed but do not take hydrocodone with the narcotic pain medication prescribed today. You may take 1 tablet of oxycodone every 6 hours as needed for pain. Prescription was sent to [facility] in [place]. You may use a pillow or blanket against the rib fracture when coughing or sneezing to splint to the area. Do not wrap new chest. Use incentive spirometer once hourly every hour while awake. Return to the ER for fevers, lightheadedness, passing out, new or changing chest pain, coughing up blood, persistent vomiting or other new or concerning symptoms. Prescriptions: New oxycodone 5 mg tablet 5 mg PO Q6H PRN (Reason: pain) Qty: 14 RF: 0 No Action albuterol sulfate 90 mcg/actuation aerosol powdr breath activated 2 inhalation INHALATION Q4-6H PRN (Reason: shortness of breath or wheezing) Qty: 1 RF: 6 spironolactone 50 mg tablet 200 mg PO DAILY RF: 0 furosemide 20 mg tablet 80 mg PO BID Qty: 0 RF: 0 cephalexin [Keflex] 500 mg capsule 500 mg PO BID Qty: 12 RF: 0 doxycycline hyclate 100 mg capsule 100 mg PO BID Qty: 12 RF: 0 Referrals: Pancho Payan MD [Primary Care Provider] -
[2020-08-21 11:08] VITALS: BP 110/68; PULSE 72; RESP 16; O2SAT 98
== END 2020-08-21 11:09 | disposition home or self-care (01) ==
PROVIDERS: Emergency Provider Emergency Medicine; PCP Internal Medicine; Referring Provider Emergency Medicine
DX: R07.9 Chest pain, unspecified (principal); S22.32XA Fracture of one rib, left side, initial encounter for closed fracture; W19.XXXA Unspecified fall, initial encounter
CPT/HCPCS: 71101; 99283

== ENCOUNTER → 2020-10-08 11:55 | Outpatient (CLI) | payer MEDICARE, MEDICAID, SELFPAY ==
[2020-04-15 20:51] VITALS: BMI 49.6
--- NOTE | 2020-10-08 | DI.US.S_ITS ---
PROCEDURE: US PERIPH VENOUS LOW EXTREM RT INDICATIONS: LOWER LEG PAIN TECHNIQUE: Real-time imaging, as well as color and pulse Doppler interrogation, were performed of the lower extremity deep veins from the inguinal ligament to the popliteal fossa. COMPARISON: None. FINDINGS: The common femoral, femoral and popliteal veins are normally compressible, and free of intraluminal thrombus. Color and pulse Doppler demonstrate normal phasic intraluminal flow. There is normal augmentation response to distal compression maneuver. IMPRESSION: No sonographic evidence of DVT. Dictated by: Paramjit Alatorre M.D. on 10/08/2020 at 14:46 Approved by: Paramjit Alatorre M.D. on 10/08/2020 at 14:46
== END ==
PROVIDERS: PCP Internal Medicine; Referring Provider Internal Medicine; Visit Provider Internal Medicine
DX: M79.605 Pain in left leg (principal); R60.0 Localized edema
CPT/HCPCS: 93971

== ENCOUNTER → 2020-10-24 12:29 | Outpatient (CLI) | payer MEDICARE, MEDICAID, SELFPAY ==
[2020-04-15 20:51] VITALS: BMI 49.6
--- NOTE | 2020-10-24 | DI.RAD.S_ITS ---
PROCEDURE: XR KNEE RT 1TO2V INDICATIONS: Pain in right knee TECHNIQUE: 2 views of the knee were acquired. COMPARISON: None. FINDINGS: Bones: No acute fracture seen. On the frontal view, the fibula appears to be more medially oriented than expected and this is likely related to patient positioning. There is no suggestion of fibular dislocation on the lateral view. Tricompartmental degenerative changes are present. No suspicious bony lesions. Soft tissues: Small suprapatellar joint effusion. Mild diffuse soft tissue edema of the imaged right lower extremity. No suspicious soft tissue calcifications. There are vascular calcifications. IMPRESSION: 1. Right knee without definite fracture or dislocation. 2. Tricompartmental osteoarthrosis of the right knee. 3. Small knee joint effusion. If there is persistent clinical concern for occult fracture given adequate mechanism of injury, consider repeat imaging in 10-14 days. Dictated by: Lito Camejo M.D. on 10/24/2020 at 18:49 Approved by: Lito Camejo M.D. on 10/24/2020 at 18:52
== END ==
PROVIDERS: PCP Internal Medicine; Referring Provider Internal Medicine; Visit Provider Internal Medicine
DX: M25.561 Pain in right knee (principal); M17.11 Unilateral primary osteoarthritis, right knee; M25.461 Effusion, right knee
CPT/HCPCS: 73560

== ENCOUNTER 2020-11-03 13:20 | Inpatient (IN) | payer MEDICARE, MEDICAID, SELFPAY ==
[2020-04-15 20:51] VITALS: BMI 49.6
[2020-11-03] VITALS (10 sets, daily range): BP systolic 124–155; BP diastolic 56–81; PULSE 74–87; RESP 16–19; TEMP 36.8–37.1; O2SAT 95–100; BMI 38.3
--- NOTE | 2020-11-03 14:54 | PC.NURSE ---
pt states he was put on a diuretic, pt states it was getting harder to get up and pee cause his legs were swelling so he stopped taking it and the swelling go worse. pt states now he has blisters on lower developing and pain in his rt knee.
--- NOTE | 2020-11-03 15:19 | DI.US.S_ITS ---
PROCEDURE: [facility] VENOUS LOW EXTREM RT INDICATIONS: right lower extremity swelling/pain TECHNIQUE: Real-time imaging, as well as color and pulse Doppler interrogation, were performed of the lower extremity deep veins from the inguinal ligament to the popliteal fossa. COMPARISON: [facility], [facility] VENOUS LOW EXTREM RT, 04/15/2020, 18:24. [facility], PERIP VENOUS LOW EXTREM RT, 10/08/2020, 12:20. FINDINGS: Limited exam given patient's body habitus. The common femoral, femoral and popliteal veins are normally compressible, and free of intraluminal thrombus. Color and pulse Doppler demonstrate normal phasic intraluminal flow. There is normal augmentation response to distal compression maneuver. IMPRESSION: No evidence of deep venous thrombosis within limits of this exam. Dictated by: Aakash Pena D.O. on 11/03/2020 at 16:15 Approved by: Aakash Pena D.O. on 11/03/2020 at 16:19
--- NOTE | 2020-11-03 15:19 | ED.SKABFB ---
HPI - Skin/Abscess/Foreign Bdy General Chief complaint: Skin/Abscess/Foreign Body Stated complaint: right knee pain Time Seen by Provider: 11/03/20 14:40 Source: patient and family () Mode of arrival: Wheelchair Limitations: no limitations History of Present Illness HPI narrative: This is a 65-year-old male who comes to the emergency department with complaint of right lower extremity pain. He initially describes it as knee pain but also describes it as lower extremity pain. Patient states that he stopped walking in the last week, he also quit taking his Lasix because it has been too painful for him to walk to the bathroom when he is tired of getting up to urinate and a bucket next to his bed. He has not had fevers or chills. He denies any chest pain or shortness of breath. He denies any nausea or vomiting. He has not had any issues with bowel movements. He has not had any other issues with urination other than stopping his Lasix so he did not urinate as frequently. Patient states his lower extremities have been swollen for a significant period of time. He states he was admitted here for an infection in his lower extremity which was treated with IV antibiotics. Patient is unclear on the particulars of these events. Patient states that they have noticed increasing redness of the lower leg, he also complains a lot of pain in the heel of his foot. He is unsure if there has been any skin breakdown but he has had weepage from the skin which is new. He also has an area of raised skin on the anterior and posterior french which he states was present with his prior leg infection, had resolved and has now returned. Patient denies any allergies to medications. Hepatitis-C with cirrhosis and hepatocellular carcinoma status post resection and treatment considered in remission. Patient's history of hypertension and asthma. Related Data Home Medications Medication Instructions Recorded Confirmed spironolactone 200 mg PO DAILY 04/15/20 04/15/20 Previous Rx's Medication Instructions Recorded albuterol sulfate 90 mcg/actuation 2 inhalation INHALATION Q4-6H PRN 01/23/20 breath activated powder inhaler #1 each cephalexin [Keflex] 500 mg PO BID #12 cap 04/17/20 doxycycline hyclate 100 mg PO BID #12 cap 04/17/20 furosemide 80 mg PO BID #0 tab 04/17/20 oxycodone 5 mg PO Q6H PRN #14 tab 08/21/20 Allergies Allergy/AdvReac Type Severity Reaction Status Date / Time No Known Drug Allergies Allergy Verified 01/23/20 10:24 Review of Systems Review of Systems ROS Unobtainable: All systems reviewed & are unremarkable except as noted in HPI and below Patient History Medical History Anasarca Ascites Asthma Elevated brain natriuretic peptide (BNP) level Hepatitis C Hypertension Liver cancer Liver cirrhosis Surgical History History of surgery of liver Family History Father Trauma Mother Sjogrens syndrome Sister No significant medical problems Social History household members: spouse Smoking Status: Never smoker alcohol intake: never Smoking Status: Never smoker alcohol intake frequency: 0-2 drinks per day Substance Use Type: marijuana Exam Narrative Exam Narrative: GENERAL: Alert and oriented x three, obese male in mild distress. HEENT: Head normocephalic, atraumatic, EOMI, pupils reactive, face symmetric, moist mucous membranes NECK: Supple, full range of motion CARDIOVASCULAR: Regular rate and rhythm without murmurs, rubs or gallops. RESPIRATORY: Breath sounds equal bilaterally, no wheezes rales or rhonchi. ABDOMEN: Soft, nontender. Normoactive bowel sounds all 4 quadrants. No guarding or rebound, rigidity, no mass : No CVA tenderness EXTREMITIES: Decreased range of motion bilateral lower extremities, patient has significant swelling in bilateral lower extremities and up into the upper thighs and groin, patient has some erythema over the anterior french and towards the foot. Patient also has some superficial skin breakdown on the posterior calf with serous drainage. Patient has sensation to touch bilateral lower extremities. Unable to palpate pull secondary to the edema and habitus but patient has cap refill less than 2 seconds in all 5 toes. Patient also has some swelling on his anterior french that appears almost bubbled in appearance but does not appear to be blistered but deeper in the epidermis. Patient does not have any bony tenderness to the knee. NEUROLOGICAL: Cranial nerves II through XII grossly intact. Moving all extremities SKIN: Warm, dry, no petechiae, no rashes or lesions. Initial Vital Signs Initial Vital Signs: Vital Signs Pulse Rate 77 11/03/20 13:25 Respiratory Rate 17 11/03/20 13:25 Blood Pressure 155/67 H 11/03/20 13:25 Pulse Oximetry 100 11/03/20 13:25 Course Orders Ordered: ED Orders 11/03/20 15:06 Complete Blood Count AUTO DIFF Stat Comprehensive Metabolic Panel Stat Lactate (Lactic Acid) Stat NT-proBNP (BNP-Adult 18+) Stat Partial Thromboplastin Time Stat Procalcitonin Stat Prothrombin Time INR Stat 11/03/20 15:19 periph venous low extrem rt Stat XR knee RT 1to2V Stat 11/03/20 15:20 EKG-12 Lead Stat 11/03/20 15:40 Blood Culture Stat 11/03/20 15:55 COVID19 Stat 11/03/20 17:47 Education, smoking cessation ONGOING 11/04/20 05:00 Complete Blood Count AUTO DIFF Routine Comprehensive Metabolic Panel Routine Enoxaparin Sodium (Enoxaparin 40 Mg/0.4 Ml Syringe) 40 mg SUBCUT DAILY TIERNEY Furosemide (Furosemide 20 Mg Tablet) 80 mg PO BID TIERNEY Naloxone HCl (Naloxone 0.4 Mg/Ml Vial) 0.2 mg IV Q2MIN PRN PRN Reason: Opiate Reversal Oxycodone HCl (Oxycodone Ir 5 Mg Tablet) 5 mg PO Q6H PRN PRN Reason: pain Spironolactone (Spironolactone 25 Mg Tablet) 200 mg PO DAILY TIERNEY Vancomycin HCl (Vancomycin Per Pharmacy) 1 request MISC NOW ONE Stop: 11/03/20 17:50 Discontinued Medications Furosemide (Furosemide 100 Mg/10 Ml Vial) 60 mg IV NOW ONE Stop: 11/03/20 17:33 Last Admin: 11/03/20 17:49 Dose: 60 mg Documented by: JOANNA Vancomycin HCl/Dextrose (Vancomycin) 1,500 mg in 300 mls @ 200 mls/hr IV NOW ONE Stop: 11/03/20 19:01 Last Admin: 11/03/20 17:49 Dose: 200 mls/hr Documented by: JOANNA Morphine Sulfate (Morphine 4 Mg/Ml Inj) 4 mg IV NOW ONE Stop: 11/03/20 15:20 Last Admin: 11/03/20 15:36 Dose: 4 mg Documented by: BTONER Consultations Consultation #1: Dr. Dixon accepts for cellulitis of the right lower extremity on top of chronic venous stasis changes. Patient also likely has some acute lower extremity edema bilaterally secondary to cessation of his Lasix. Time: 17:45 Vital Signs Vital signs: Vital Signs - 8 hr 11/03/20 13:25 11/03/20 15:43 11/03/20 16:00 Pulse Rate 77 77 79 Respiratory Rate 17 Blood Pressure 155/67 H Pulse Oximetry 100 96 98 11/03/20 16:08 11/03/20 17:18 11/03/20 17:19 Pulse Rate 76 77 Respiratory Rate Blood Pressure 126/58 L 124/56 L Pulse Oximetry 96 95 97 11/03/20 17:30 Pulse Rate 74 Respiratory Rate Blood Pressure Pulse Oximetry 95 MDM - Skin/Abscess/Foreign Bdy Lab Data Attestation: I reviewed the patient's lab results. Result diagrams: 11/03/20 15:06 11/03/20 15:06 Labs: Lab Results 11/03/20 11/03/20 11/03/20 Range/Units 15:06 15:06 15:06 WBC 15.2 H (4.5-11.0) X10^3/uL RBC 3.15 L (4.5-5.9) X10^6/uL Hgb 10.3 L (13.5-17.5) g/dL Hct 31.2 L (41-53) % MCV 98.9 (80-100) fL MCH 32.6 (26-34) PG MCHC 33.0 (30-36) % RDW 14.9 H (11.6-14.8) % Plt Count 112 L (150-400) X10^3/uL Neut % (Auto) 87.1 H (50-75) % Lymph % (Auto) 2.5 L (25-40) % [place] % (Auto) 9.2 (3-14) % Eos % (Auto) 0.8 L (2-4) % Baso % (Auto) 0.4 (0-2) % Neut # (Auto) 19224 H (5890-4203) /uL Lymph # (Auto) 400 L (9235-4120) /uL [place] # (Auto) 1400 H (0-900) /uL Eos # (Auto) 100 (0-450) /uL Baso # (Auto) 100 (0-100) /uL PT 18.0 H (10.1-12.7) SECONDS INR 1.6 H (0.9-1.3) APTT (26.4-36.2) SECONDS Sodium (137-145) mmol/L Potassium (3.4-5.1) mmol/L Chloride (98-107) mmol/L Carbon Dioxide (22-32) mmol/L BUN (9-20) mg/dL Creatinine (0.66-1.25) mg/dL Estimated GFR (>60) mL/min BUN/Creatinine Ratio (6-22) Glucose (80-110) mg/dL Lactate (0.7-2.1) mmol/L Calcium (8.4-10.2) mg/dL Total Bilirubin (0.2-1.3) mg/dL AST (17-59) IU/L ALT (<50) IU/L Alkaline Phosphatase (38-126) U/L NT-Pro-B Natriuret Pep 1530 H (<125) pg/mL Total Protein (6.3-8.2) g/dL Albumin (3.5-5.0) g/dL Globulin (1.7-4.1) g/dL Albumin/Globulin Ratio (1.0-2.8) Procalcitonin (<0.5) ng/mL SARS-CoV-2 (PCR) (Negative) 11/03/20 11/03/20 11/03/20 Range/Units 15:06 15:06 15:06 WBC (4.5-11.0) X10^3/uL RBC (4.5-5.9) X10^6/uL Hgb (13.5-17.5) g/dL Hct (41-53) % MCV (80-100) fL MCH (26-34) PG MCHC (30-36) % RDW (11.6-14.8) % Plt Count (150-400) X10^3/uL Neut % (Auto) (50-75) % Lymph % (Auto) (25-40) % [place] % (Auto) (3-14) % Eos % (Auto) (2-4) % Baso % (Auto) (0-2) % Neut # (Auto) (2841-2431) /uL Lymph # (Auto) (5838-0226) /uL [place] # (Auto) (0-900) /uL Eos # (Auto) (0-450) /uL Baso # (Auto) (0-100) /uL PT (10.1-12.7) SECONDS INR (0.9-1.3) APTT 34 (26.4-36.2) SECONDS Sodium 132 L (137-145) mmol/L Potassium 5.0 (3.4-5.1) mmol/L Chloride 103 (98-107) mmol/L Carbon Dioxide 28 (22-32) mmol/L BUN 53 H (9-20) mg/dL Creatinine 1.39 H (0.66-1.25) mg/dL Estimated GFR 51.6 L (>60) mL/min BUN/Creatinine Ratio 38.1 H (6-22) Glucose 183 H (80-110) mg/dL Lactate (0.7-2.1) mmol/L Calcium 9.3 (8.4-10.2) mg/dL Total Bilirubin 2.1 H (0.2-1.3) mg/dL AST 119 H (17-59) IU/L ALT 58 H (<50) IU/L Alkaline Phosphatase 187 H (38-126) U/L NT-Pro-B Natriuret Pep (<125) pg/mL Total Protein 7.5 (6.3-8.2) g/dL Albumin 2.8 L (3.5-5.0) g/dL Globulin 4.7 H (1.7-4.1) g/dL Albumin/Globulin Ratio 0.6 L (1.0-2.8) Procalcitonin 0.21 (<0.5) ng/mL SARS-CoV-2 (PCR) (Negative) 11/03/20 11/03/20 Range/Units 15:06 15:55 WBC (4.5-11.0) X10^3/uL RBC (4.5-5.9) X10^6/uL Hgb (13.5-17.5) g/dL Hct (41-53) % MCV (80-100) fL MCH (26-34) PG MCHC (30-36) % RDW (11.6-14.8) % Plt Count (150-400) X10^3/uL Neut % (Auto) (50-75) % Lymph % (Auto) (25-40) % [place] % (Auto) (3-14) % Eos % (Auto) (2-4) % Baso % (Auto) (0-2) % Neut # (Auto) (1851-9464) /uL Lymph # (Auto) (3967-8177) /uL [place] # (Auto) (0-900) /uL Eos # (Auto) (0-450) /uL Baso # (Auto) (0-100) /uL PT (10.1-12.7) SECONDS INR (0.9-1.3) APTT (26.4-36.2) SECONDS Sodium (137-145) mmol/L Potassium (3.4-5.1) mmol/L Chloride (98-107) mmol/L Carbon Dioxide (22-32) mmol/L BUN (9-20) mg/dL Creatinine (0.66-1.25) mg/dL Estimated GFR (>60) mL/min BUN/Creatinine Ratio (6-22) Glucose (80-110) mg/dL Lactate 1.7 (0.7-2.1) mmol/L Calcium (8.4-10.2) mg/dL Total Bilirubin (0.2-1.3) mg/dL AST (17-59) IU/L ALT (<50) IU/L Alkaline Phosphatase (38-126) U/L NT-Pro-B Natriuret Pep (<125) pg/mL Total Protein (6.3-8.2) g/dL Albumin (3.5-5.0) g/dL Globulin (1.7-4.1) g/dL Albumin/Globulin Ratio (1.0-2.8) Procalcitonin (<0.5) ng/mL SARS-CoV-2 (PCR) Negative (Negative) Imaging Data Extremity x-ray #1: Radiologist's Impression: [address] [id number] ReportSigned Patient: Juan Carlos Guzmán AMR#: [id number]: 7Acct:[id number]/Sex: 65 / MDate of Service: 11/03/20Loc: EDAccession Number: [id number] Procedure: XR knee RT 1to2V Ordering Provider: Sharri Davis D.O. PROCEDURE: XR KNEE RT 1TO2V INDICATIONS: right knee/lower extremity pain, ? cellulitis TECHNIQUE: 2 views of the knee were acquired. COMPARISON: [facility], XR KNEE RT 1TO2V, 10/24/2020, 13:00. FINDINGS: Bones: No fractures or dislocations. No suspicious bony lesions. Soft tissues: No joint effusion. Vascular calcifications within the posteriorly. There is diffuse subcutaneous edema. IMPRESSION: No acute osseous abnormality. Diffuse subcutaneous edema. Dictated by: Aaksah Pena D.O. on 11/03/2020 at 15:43 Approved by: Aakash Pena D.O. on 11/03/2020 at 15:44 US - DVT: Radiologist's Impression: Juan Carlos Guzmán 65 M 1955 [place], [place] [address]Ultrasound ReportSigned Patient: Juan Carlos Guzmán AMR#: [id number]: 1955cct:[id number]/Sex: 65 / MDate of Service: 11/03/20Loc: EDAccession Number: [id number] Procedure: US periph venous low extrem rt Ordering Provider: Sharri Davis D.O. PROCEDURE: US PERIPH VENOUS LOW EXTREM RT INDICATIONS: right lower extremity swelling/pain TECHNIQUE: Real-time imaging, as well as color and pulse Doppler interrogation, were performed of the lower extremity deep veins from the inguinal ligament to the popliteal fossa. COMPARISON: [facility], PERIP VENOUS LOW EXTREM RT, 04/15/2020, 18:24. [facility], PERIPH VENOUS LOW EXTREM RT, 10/08/2020, 12:20. FINDINGS: Limited exam given patient's body habitus. The common femoral, femoral and popliteal veins are normally compressible, and free of intraluminal thrombus. Color and pulse Doppler demonstrate normal phasic intraluminal flow. There is normal augmentation response to distal compression maneuver. IMPRESSION: No evidence of deep venous thrombosis within limits of this exam. Dictated by: Aakash Pena D.O. on 11/03/2020 at 16:15 Approved by: Aakash Pena D.O. on 11/03/2020 at 16:19 ECG Data Attestation: I personally reviewed and interpreted this ECG as follows: Interpretation: Junctional rhythm rate of 77, QRS of 96 and QTC of 420. No ST elevation depression appreciated. MDM Narrative Medical decision making narrative: This is a 65-year-old morbidly obese male who comes in with complaint of right lower extremity pain which she initially describes as his knee but after further discussion is his lower extremity from the knee down. Patient has had increasing redness as well as weeping from the anterior french and posterior calf as well as what sounds like chronic venous stasis changes which has recently changed with additional swelling. On exam patient does not have any tenderness of palpation of the knee or warmth or erythema pressure 8 over the knee itself. His skin changes appear to be all localized in the lower half of the leg. There is some superficial loss of skin on the posterior calf but do not appreciate any other skin breakdown. Patient does have a leukocytosis with a left shift, procalcitonin is negative. His glucose itis were lower with a positive procalcitonin with his cellulitis in April in the same lower extremity. He has multiple other abnormalities which appear consistent with prior labs. DVT ultrasound was ordered of the right lower extremity and was negative. Patient had vancomycin started, dose of Lasix. Based on patient's debility secondary to his habitus, cellulitis with white count I suspect he would benefit from hospitalization and IV antibiotics. I spoke with the hospitalist, Dr. Dixon who agrees to observation Discharge Plan Departure Patient Disposition: Admitted as Observation Clinical Impression: Cellulitis of leg, right, Bilateral leg edema Admit Date/Time: 11/03/20 17:46 Admit Provider: Odalis Dixon
[2020-11-03 15:33] LABS: Add Manual Diff / Slide Review NO; Basophils Absolute Auto 100 /uL (0-100); Basophils Percent Auto 0.4 % (0-2); Eosinophils Absolute Auto 100 /uL (0-450); Eosinophils Percent Auto 0.8 % (2-4); Hematocrit 31.2 % (41-53); Hemoglobin 10.3 g/dL (13.5-17.5); INR 1.6 (0.9-1.3); Lymphocytes Absolute Auto 400 /uL (1100-4500); Lymphocytes Percent Auto 2.5 % (25-40); Mean Corpuscular Hemoglobin 32.6 PG (26-34); Mean Corpuscular Volume 98.9 fL (80-100); Monocytes Absolute Auto 1400 /uL (0-900); Monocytes Percent Auto 9.2 % (3-14); Neutrophils Absolute Auto 13200 /uL (1500-7000); Neutrophils Percent Auto 87.1 % (50-75); Platelet Count 112 X10^3/uL (150-400); Red Blood Cell Count 3.15 X10^6/uL (4.5-5.9); Red Cell Distribution Width 14.9 % (11.6-14.8); White Blood Cell Count 15.2 X10^3/uL (4.5-11.0)
[2020-11-03] MEDS: MORPHINE 4 MG/ML INJ IV (15:36)
[2020-11-03 15:43] LABS: Alanine Aminotransferase 58 IU/L (<50); Albumin 2.8 g/dL (3.5-5.0); Albumin Globulin Ratio 0.6 (1.0-2.8); Alkaline Phosphatase 187 U/L (38-126); Aspartate Aminotransferase 119 IU/L (17-59); BUN Creatinine Ratio 38.1 (6-22); Bilirubin Total 2.1 mg/dL (0.2-1.3); Blood Urea Nitrogen 53 mg/dL (9-20); Calcium 9.3 mg/dL (8.4-10.2); Carbon Dioxide 28 mmol/L (22-32); Chloride 103 mmol/L (98-107); Estimated Glomerular Filt Rate 51.6 mL/min (>60); Globulin 4.7 g/dL (1.7-4.1); Glucose 183 mg/dL (80-110); HEMOLYSIS 18 (0-50); Sodium 132 mmol/L (137-145); Total Protein 7.5 g/dL (6.3-8.2)
[2020-11-03 15:44] LABS: Lactate (Lactic Acid) 1.7 mmol/L (0.7-2.1)
[2020-11-03 15:47] LABS: PTT Partial Thromboplastin Tim 34 SECONDS (26.4-36.2)
[2020-11-03 15:51] LABS: NT-proBNP (BNP-Adult 18+) 1530 pg/mL (<125)
[2020-11-03 15:58] LABS: Procalcitonin 0.21 ng/mL (<0.5)
[2020-11-03 16:18] LABS: COVID19 -Nasal RAPID Negative (Negative)
[2020-11-03] MEDS: VANCOMYCIN 1,500 MG/300 ML PIGGYBACK 200 MG IV (17:49)
[2020-11-03] MEDS: FUROSEMIDE 100 MG/10 ML VIAL 60 MG IV (17:49)
--- NOTE | 2020-11-03 17:49 | PM.HP.1 ---
History of Present Illness History of Present Illness Date Patient Seen: 11/03/20 Time Patient Seen: 18:40 Chief complaint: right knee pain Narrative: This is a 65-year-old male who is chronically ill with Hepatitis C Cirrhosis/Anasarca who presents to the emergency department this evening with 2 days of acute worsening right knee pain along with progressive redness of the right anterior french area. He appears to have gout versus a septic right knee joint in addition to possible cellulitis of the anterior french. His main complaint is right knee pain. He has no history of gout. He was admitted about 7 months ago with a similar right leg cellulitis. He has had no fevers, chills or radiation of the pain. He describes weeping fluid from the swollen patch on the right anterior french, which is not evident on exam. He has relatively stable chronic anemia, chronic kidney disease stage 3, elevated liver enzymes and INR. He says that he stopped his Lasix 2 days ago because it was too painful to get up to urinate. Orthopedics will consult in the morning for consideration of knee joint aspiration. Patient History Medical History Anasarca Ascites Asthma Elevated brain natriuretic peptide (BNP) level Hepatitis C Hypertension Liver cancer Liver cirrhosis Surgical History History of surgery of liver Family & Social History Family History Father Trauma Mother Sjogrens syndrome Sister No significant medical problems Social History: household members spouse Safety & Behavioral: Feels Safe in Current Yes Environment Been Physically Hurt or No Threatened By a Person Tobacco & Substance use: Smoking Status Never smoker alcohol intake never alcohol intake frequency 0-2 drinks per day Substance Use Type marijuana Comment: His backup decision maker is his Tayler Rasmussen. 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 Payan as his primary care. Meds Home Medications and Allergies Home Medications Medication Instructions Recorded Confirmed Type albuterol sulfate 90 mcg/actuation 2 inhalation INHALATION Q4-6H PRN 01/23/20 04/15/20 Rx breath activated powder inhaler #1 each spironolactone 200 mg PO DAILY 04/15/20 04/15/20 History cephalexin [Keflex] 500 mg PO BID #12 cap 04/17/20 Rx doxycycline hyclate 100 mg PO BID #12 cap 04/17/20 Rx furosemide 80 mg PO BID #0 tab 04/17/20 04/15/20 Rx oxycodone 5 mg PO Q6H PRN #14 tab 08/21/20 Rx Allergies Allergy/AdvReac Type Severity Reaction Status Date / Time No Known Drug Allergies Allergy Verified 01/23/20 10:24 Review of Systems Review of Systems Narrative: Positive for right knee pain, bilateral lower extremity swelling, weakness, obesity. Negative for fevers, chills, sweats, chest pain, shortness of breath, seizures, rashes, headaches, coughing, dysuria, bleeding, new allergies. ROS: Yes All systems reviewed with the patient and are negative except as otherwise documented Exam Vital Signs (past 8 hours): - 11/03/20 13:25 11/03/20 15:43 11/03/20 16:00 Pulse Rate 77 77 79 Respiratory Rate 17 Blood Pressure 155/67 H Pulse Oximetry 100 96 98 11/03/20 16:08 11/03/20 17:18 11/03/20 17:19 Pulse Rate 76 77 Respiratory Rate Blood Pressure 126/58 L 124/56 L Pulse Oximetry 96 95 97 Oxygen Delivery Method Room Air Narrative Exam Narrative: He is alert and oriented x3. He appears to be in moderate distress from right knee pain and labored breathing. Pupils are equally round and reactive to light and accommodation. Sclerae are pink and nonicteric Extraocular muscles are intact Throat looks normal with residual Tums whiteness in the back of the throat. No lymph nodes are felt head, neck, supraclavicular area. There is no thyromegaly. No carotid bruits are heard. Heart is regular rate and rhythm without murmur Lungs are clear to auscultation bilaterally Abdomen is soft, bowel sounds active, liver enlarged moderately, large pannus with depended edema Extremities have 2+ pitting edema between the knees and feet. The right knee in particular is swollen, warm and tender suggestive of gout or infection The skin of the legs is chronically disfigured. The largest patch is pink with swollen nodular edema about 10 cm diameter on the lower right anterior french. Neurological exam Motor function is 3/5 throughout. He is diffusely weak and. There is no tremor. Cranial nerves 2-12 tested intact There is no jaundice. Objective Labs Result Diagrams: 11/03/20 15:06 11/03/20 15:06 Labs: Laboratory Results - last 24 hr 11/03/20 11/03/20 11/03/20 15:06 15:06 15:06 WBC 15.2 H RBC 3.15 L Hgb 10.3 L Hct 31.2 L MCV 98.9 MCH 32.6 MCHC 33.0 RDW 14.9 H Plt Count 112 L Neut % (Auto) 87.1 H Lymph % (Auto) 2.5 L [place] % (Auto) 9.2 Eos % (Auto) 0.8 L Baso % (Auto) 0.4 Neut # (Auto) 02669 H Lymph # (Auto) 400 L [place] # (Auto) 1400 H Eos # (Auto) 100 Baso # (Auto) 100 PT 18.0 H INR 1.6 H APTT Sodium Potassium Chloride Carbon Dioxide BUN Creatinine Estimated GFR BUN/Creatinine Ratio Glucose Lactate Calcium Total Bilirubin AST ALT Alkaline Phosphatase NT-Pro-B Natriuret Pep 1530 H Total Protein Albumin Globulin Albumin/Globulin Ratio Procalcitonin SARS-CoV-2 (PCR) 11/03/20 11/03/20 11/03/20 15:06 15:06 15:06 WBC RBC Hgb Hct MCV MCH MCHC RDW Plt Count Neut % (Auto) Lymph % (Auto) [place] % (Auto) Eos % (Auto) Baso % (Auto) Neut # (Auto) Lymph # (Auto) [place] # (Auto) Eos # (Auto) Baso # (Auto) PT INR APTT 34 Sodium 132 L Potassium 5.0 Chloride 103 Carbon Dioxide 28 BUN 53 H Creatinine 1.39 H Estimated GFR 51.6 L BUN/Creatinine Ratio 38.1 H Glucose 183 H Lactate Calcium 9.3 Total Bilirubin 2.1 H AST 119 H ALT 58 H Alkaline Phosphatase 187 H NT-Pro-B Natriuret Pep Total Protein 7.5 Albumin 2.8 L Globulin 4.7 H Albumin/Globulin Ratio 0.6 L Procalcitonin 0.21 SARS-CoV-2 (PCR) 11/03/20 11/03/20 15:06 15:55 WBC RBC Hgb Hct MCV MCH MCHC RDW Plt Count Neut % (Auto) Lymph % (Auto) [place] % (Auto) Eos % (Auto) Baso % (Auto) Neut # (Auto) Lymph # (Auto) [place] # (Auto) Eos # (Auto) Baso # (Auto) PT INR APTT Sodium Potassium Chloride Carbon Dioxide BUN Creatinine Estimated GFR BUN/Creatinine Ratio Glucose Lactate 1.7 Calcium Total Bilirubin AST ALT Alkaline Phosphatase NT-Pro-B Natriuret Pep Total Protein Albumin Globulin Albumin/Globulin Ratio Procalcitonin SARS-CoV-2 (PCR) Negative Assessment & Plan Assessment & Plan narrative: Right Leg Cellulitis, present on admission. Active -mild redness of the french but significant right knee swelling/warmth/tenderness without redness of the knee -WBC 15.2 on admission, repeat 11/04 -Begin Vancomycin IV -consult orthopedics on 11/05 for possible knee joint aspiration. Discussed with Dr. Jin. Right knee inflammatory swelling, present on admission. Active -the right knee exam suggests acute gout versus septic joint. -Uric Acid level pending -plan orthopedic consult on 11/05 for possible knee joint aspiration. Discussed with Dr. Jin. Anemia, present on admission. Active -Hgb 10.3 on 11/03. Previous recorded hgb of 9.6 on 04/17/20. Repeat 11/04. Anasarca, present on admission. Active -secondary to hepatitis C cirrhosis -Continue Spironolactone and Lasix Protein Calorie Malnutrition, present on admission. Active -Albumin 2.8 on 11/03 Medical Obesity, present on admission. Chronic. -he appears over nourished and also has a significant anasarca contribution Chronic Kidney Disease Stage 3, present on admission. Chronic. -Creat 1.39 with GFR of 51.6 on 11/03. -Baseline from 04/29 of Creat 1.37 and GFR 52 Hepatitis-C Cirrhosis with Elevated INR, present on admission. Chronic -INR 1.6 with baseline 1.5 from 04/29 -Bilirubin 2.1 with baseline 2.9 from 04/29 -AST 119 with baseline 46 from 04/29 -ALT 58 with baseline 22 from 04/29 -Alk Phos 187 with baseline 80 from 04/29
[2020-11-03 19:24] LABS: Uric Acid 5.4 mg/dL (3.5-8.5)
[2020-11-03] MEDS: SODIUM CHLORIDE 0.9% FLUSH 10 ML IV (20:42)
[2020-11-03] MEDS: INFLUENZA VACCINE 0.5 ML SYRINGE IM (20:43)
[2020-11-03] MEDS: FUROSEMIDE 20 MG/2 ML VIAL IV (20:45)
[2020-11-03] MEDS: OXYCODONE IR 5 MG TABLET PO (20:45)
--- NOTE | 2020-11-03 21:45 | PC.NURSE ---
Addendum entered by Tina Culver R.N. 11/03/20 22:13: Upon pain reassessment, patient reports the same number as before, 03/20. However, he also states it is better. Original Note: Report received from ED, care assumed. Received pt at 1820. Able to transfer self from [place] to bed with 1-person assist and FWW. VSS. C/o pain 03/20 right knee. Right lower extremity edematous, reddened, warm and taught from knee to ankle. Large cluster of intact blister on right french. Smaller, scattered blisters x3 on left french. Pt received Lasix in ED, urinating frequently, experiencing urgency and stress incontinence. Because of body habitus and IV, gown, etc., pt. having difficulty accessing urinal/BSC in effective and timely fashion.
[2020-11-03] MEDS: NYSTATIN POWDER 15GM 1 APPLIC TOP (22:32)
--- NOTE | 2020-11-04 00:34 | PC.NURSE ---
Addendum entered by Magali Cobb R.N. 11/04/20 06:03: 0500 Pt c/o significant right knee pain, 05/20. Administered oxycodone per order with sip of water and applied ice packs to knee. Original Note: 2300 Received safe hand-off report. The patient is awake and oriented x3, disoriented to day. He has a left AC PIV that is saline-locked. He is on room air. He denies pain, denies SOB. He has 3+ pitting edema in bilateral lower extremities with right knee swelling. He c/o heart burn. Tums or Maalox requested from hospitalist and order has been written. The patient states to me, I haven't slept in days. 0000 Worth patient yelling, God damn it! from room. Went to check on him; patient stated he had fallen asleep but then woke up in a panic, disoriented to where he was and had urinary incontinence. Bed linens changed, patient cleaned up.
[2020-11-04] MEDS: MAG HYDROX/ALUM/SIMETH 30 ML UDC PO ×2 (01:07→09:57)
[2020-11-04] MEDS: VANCOMYCIN 1,500 MG/300 ML PIGGYBACK 150 MG IV (01:08)
[2020-11-04] MEDS: OXYCODONE IR 5 MG TABLET PO ×3 (05:08→15:25)
[2020-11-04 05:25] VITALS: BP 116/67; PULSE 67; RESP 16; TEMP 36.7; O2SAT 94
[2020-11-04 05:53] LABS: Hematocrit 27.8 % (41-53); Hemoglobin 9.3 g/dL (13.5-17.5); Mean Corpuscular HGB Conc 33.3 % (30-36); Mean Corpuscular Hemoglobin 32.7 PG (26-34); Mean Corpuscular Volume 98.1 fL (80-100); Red Blood Cell Count 2.83 X10^6/uL (4.5-5.9); Red Cell Distribution Width 15.1 % (11.6-14.8); White Blood Cell Count 14.6 X10^3/uL (4.5-11.0)
[2020-11-04 05:54] LABS: Add Manual Diff / Slide Review YES; Platelet Count 102 X10^3/uL (150-400)
[2020-11-04 05:58] LABS: Alanine Aminotransferase 51 IU/L (<50); Albumin 2.6 g/dL (3.5-5.0); Albumin Globulin Ratio 0.6 (1.0-2.8); Alkaline Phosphatase 152 U/L (38-126); Aspartate Aminotransferase 99 IU/L (17-59); BUN Creatinine Ratio 37.7 (6-22); Bilirubin Total 1.8 mg/dL (0.2-1.3); Blood Urea Nitrogen 49 mg/dL (9-20); Calcium 9.1 mg/dL (8.4-10.2); Carbon Dioxide 28 mmol/L (22-32); Chloride 102 mmol/L (98-107); Estimated Glomerular Filt Rate 55.8 mL/min (>60); Globulin 4.2 g/dL (1.7-4.1); Glucose 131 mg/dL (80-110); HEMOLYSIS < 15 (0-50); Potassium 4.7 mmol/L (3.4-5.1); Sodium 132 mmol/L (137-145); Total Protein 6.8 g/dL (6.3-8.2)
[2020-11-04 06:14] LABS: Neutrophils Absolute Manual 13432 /uL (3000-5900); Total Cells Counted 100
[2020-11-04 06:15] LABS: Anisocytosis 1+
--- NOTE | 2020-11-04 07:53 | PM.CN ---
History of Present Illness Consult details Date Patient Seen: 11/04/20 Time Patient Seen: 07:53 Chief complaint: right knee pain Reason for consult: right leg pain Requesting provider: Odalis Dixon Narrative: Mr. Guzmán is a 65yo M with multiple medical cormorbidites and hx of over 1 month of right leg pain. He has been doing simple household ambulation until recently. He says his leg pain stopped from walking a week ago. He is admitted through the ED after initial work up which showed chronic venous stasis and chronic edema in BLE with cellulitis of his right leg. Orthopedic service was consulted for additional input. Meds Home Medications and Allergies Home Medications Medication Instructions Recorded Confirmed Type albuterol sulfate 90 mcg/actuation 2 inhalation INHALATION Q4-6H PRN 01/23/20 04/15/20 Rx breath activated powder inhaler #1 each spironolactone 200 mg PO DAILY 04/15/20 04/15/20 History cephalexin [Keflex] 500 mg PO BID #12 cap 04/17/20 Rx furosemide 80 mg PO BID #0 tab 04/17/20 04/15/20 Rx oxycodone 5 mg PO Q6H PRN #14 tab 08/21/20 Rx Allergies Allergy/AdvReac Type Severity Reaction Status Date / Time No Known Drug Allergies Allergy Verified 01/23/20 10:24 Review of Systems Review of Systems ROS: Yes All systems reviewed with the patient and are negative except as otherwise documented Exam Vital Signs (past 8 hours): - 11/04/20 05:25 Temperature 98.1 F Pulse Rate 67 Respiratory Rate 16 Blood Pressure 116/67 Pulse Oximetry 94 Oxygen Delivery Method Room Air Oxygen Flow Rate 0 Extrem Other: BLE with significant chronic venous stasis and edema. Skin intact. Neurovascularly intact. bilateral knees with minimum pain with passive ROM, no increased warmth, no increased swelling. No s/s of septic joint. Objective Labs Result Diagrams: 11/04/20 04:58 11/04/20 04:58 Labs: Laboratory Results - last 24 hr 11/03/20 11/03/20 11/03/20 15:06 15:06 15:06 WBC 15.2 H RBC 3.15 L Hgb 10.3 L Hct 31.2 L MCV 98.9 MCH 32.6 MCHC 33.0 RDW 14.9 H Plt Count 112 L Neut % (Auto) 87.1 H Lymph % (Auto) 2.5 L Sullivan % (Auto) 9.2 Eos % (Auto) 0.8 L Baso % (Auto) 0.4 Neut # (Auto) 06844 H Lymph # (Auto) 400 L Sullivan # (Auto) 1400 H Eos # (Auto) 100 Baso # (Auto) 100 Total Counted Seg Neutrophils % Band Neutrophils % Lymphocytes % (Manual) Monocytes % (Manual) Eosinophils % (Manual) Neutrophils # (Manual) RBC Morphology Anisocytosis PT 18.0 H INR 1.6 H APTT Sodium Potassium Chloride Carbon Dioxide BUN Creatinine Estimated GFR BUN/Creatinine Ratio Glucose Lactate Uric Acid Calcium Total Bilirubin AST ALT Alkaline Phosphatase NT-Pro-B Natriuret Pep 1530 H Total Protein Albumin Globulin Albumin/Globulin Ratio Procalcitonin SARS-CoV-2 (PCR) 11/03/20 11/03/20 11/03/20 15:06 15:06 15:06 WBC RBC Hgb Hct MCV MCH MCHC RDW Plt Count Neut % (Auto) Lymph % (Auto) Sullivan % (Auto) Eos % (Auto) Baso % (Auto) Neut # (Auto) Lymph # (Auto) Sullivan # (Auto) Eos # (Auto) Baso # (Auto) Total Counted Seg Neutrophils % Band Neutrophils % Lymphocytes % (Manual) Monocytes % (Manual) Eosinophils % (Manual) Neutrophils # (Manual) RBC Morphology Anisocytosis PT INR APTT 34 Sodium 132 L Potassium 5.0 Chloride 103 Carbon Dioxide 28 BUN 53 H Creatinine 1.39 H Estimated GFR 51.6 L BUN/Creatinine Ratio 38.1 H Glucose 183 H Lactate Uric Acid Calcium 9.3 Total Bilirubin 2.1 H AST 119 H ALT 58 H Alkaline Phosphatase 187 H NT-Pro-B Natriuret Pep Total Protein 7.5 Albumin 2.8 L Globulin 4.7 H Albumin/Globulin Ratio 0.6 L Procalcitonin 0.21 SARS-CoV-2 (PCR) 11/03/20 11/03/20 11/03/20 15:06 15:06 15:55 WBC RBC Hgb Hct MCV MCH MCHC RDW Plt Count Neut % (Auto) Lymph % (Auto) Sullivan % (Auto) Eos % (Auto) Baso % (Auto) Neut # (Auto) Lymph # (Auto) Sullivan # (Auto) Eos # (Auto) Baso # (Auto) Total Counted Seg Neutrophils % Band Neutrophils % Lymphocytes % (Manual) Monocytes % (Manual) Eosinophils % (Manual) Neutrophils # (Manual) RBC Morphology Anisocytosis PT INR APTT Sodium Potassium Chloride Carbon Dioxide BUN Creatinine Estimated GFR BUN/Creatinine Ratio Glucose Lactate 1.7 Uric Acid 5.4 Calcium Total Bilirubin AST ALT Alkaline Phosphatase NT-Pro-B Natriuret Pep Total Protein Albumin Globulin Albumin/Globulin Ratio Procalcitonin SARS-CoV-2 (PCR) Negative 11/04/20 11/04/20 04:58 04:58 WBC 14.6 H RBC 2.83 L Hgb 9.3 L Hct 27.8 L MCV 98.1 MCH 32.7 MCHC 33.3 RDW 15.1 H Plt Count 102 L Neut % (Auto) Not Reportable Lymph % (Auto) Not Reportable Sullivan % (Auto) Not Reportable Eos % (Auto) Not Reportable Baso % (Auto) Not Reportable Neut # (Auto) Lymph # (Auto) Not Reportable Sullivan # (Auto) Not Reportable Eos # (Auto) Baso # (Auto) Not Reportable Total Counted 100 Seg Neutrophils % 91.0 H Band Neutrophils % 1.0 L Lymphocytes % (Manual) 2.0 L Monocytes % (Manual) 5.0 Eosinophils % (Manual) 1.0 L Neutrophils # (Manual) 27009 H RBC Morphology See below Anisocytosis 1+ H PT INR APTT Sodium 132 L Potassium 4.7 Chloride 102 Carbon Dioxide 28 BUN 49 H Creatinine 1.30 H Estimated GFR 55.8 L BUN/Creatinine Ratio 37.7 H Glucose 131 H Lactate Uric Acid Calcium 9.1 Total Bilirubin 1.8 H AST 99 H ALT 51 H Alkaline Phosphatase 152 H NT-Pro-B Natriuret Pep Total Protein 6.8 Albumin 2.6 L Globulin 4.2 H Albumin/Globulin Ratio 0.6 L Procalcitonin SARS-CoV-2 (PCR) Assessment & Plan Assessment & Plan narrative: 65 yo M with chronic bilateral LE edema and venous stasis. Recent worsening of right leg pain. No s/s of septic joint. May ambulate and work with PT/OT for mobility training. Antibiotic for cellulitis treatment. Medical management for DJD. May start regular diet, no surgical treatment needed. Please contact me for additional questions will sign off at this time. Thank you for the consultation.
[2020-11-04 08:00] VITALS: BP 140/67; PULSE 88; RESP 18; TEMP 36.8; O2SAT 96
--- NOTE | 2020-11-04 09:14 | CR.DCEVALNOT ---
DCP ASSESSMENT: Patient is a 65 yo male who was admitted to the hospital for right knee pain, chronic edema and venous stasis. Primary payer is Medicare and Medicaid. PCP listed is Pancho Payan. Attempted to see patient this date unable to complete visit as he was pending visit with hospitalist and on the phone. SANITATION TECHNICIAN and TIFFANIE Student interviewed nurse and completed a chart review. Patient is Ox3, he is currently receiving IV ABX and Lasix for cellulites. Provider has deemed he is currently not a surgical candidate. Cellulites is impacting his ambulation status per chart review a week prior to ambulating he could ambulate with a device however, a week prior to hospitalization he was not able to ambulate. Current ambulation status, able to ambulate with FWW and x1 person assistance. Nurse reported she will place a PT order. Will continue to assess ADL status and explore discharge options based on ADL, provider report and medical condition. TIFFANIE Jamison MSW Student Discharge Planning/Care Management CM Discharge Assessment Start: 11/04/20 09:09 Freq: Status: Active Protocol: Document 11/04/20 09:09 AL (Rec: 11/04/20 09:13 AL [email or web address]) Discharge Planning Assessment Assigned Sole Inker TIFFANIE Morse Student Contact Information Tayler Rasmussen: Life Partner Advance Directives? No Advance Directives on File No History Provided By Medical Record Has Patient been admitted in last 30 No days? Prior Living Arrangements House Household Members spouse Is patient alert and oriented? Yes: Ox3 Comment Has not been ambulating I in the last week prior to admission. Caregiver for Another No Comment uses a crutch, a cane or a giant 7 ft walking stick Review Status In Process
[2020-11-04] MEDS: ENOXAPARIN 40 MG/0.4 ML SYRINGE SUBCUT (09:47)
[2020-11-04] MEDS: SPIRONOLACTONE 25 MG TABLET 200 MG PO (09:48)
[2020-11-04] MEDS: FUROSEMIDE 20 MG TABLET 80 MG PO ×2 (09:48→20:08)
[2020-11-04] MEDS: SODIUM CHLORIDE 0.9% FLUSH 10 ML IV ×4 (09:49→20:08)
[2020-11-04] MEDS: NYSTATIN POWDER 15GM 1 APPLIC TOP ×2 (09:49→20:07)
--- NOTE | 2020-11-04 10:04 | PC.NURSE ---
Addendum entered by Georgette Porter R.N. 11/04/20 12:28: Patient c/o reflux, orders received. Original Note: Patient alert oriented ,rates pain to right knee 8/10 described as sharp, had 5mg oxycodone at [address] Bolaños informed of patient pain level and medication frequency adjusted. Patient given 5mg oxycodone. SBA to chair, gait steady with FWW.
--- NOTE | 2020-11-04 10:07 | PM.PN.1 ---
Subjective Subjective Date Patient Seen: 11/04/20 Time Patient Seen: 10:07 Interval history: This is a 65-year-old male with a past medical history of hep C cirrhosis and hypertension who presented with acute onset of right french redness, and right knee pain. He was seen by Orthopedic surgery who did not believe his presentation was consistent with a septic arthritis and no aspiration was attempted. US was negative for DVT. His right leg is still quite painful and he feels quite weak today. He rates his pain as much as an 8/10. His redness has slightly improved after starting on vancomycin yesterday. Will add ceftriaxone for additional non-MRSA coverage. Exam Vital Signs (past 8 hours): - 11/04/20 05:25 11/04/20 08:00 Temperature 98.1 F 98.3 F Pulse Rate 67 88 Respiratory Rate 16 18 Blood Pressure 116/67 140/67 Pulse Oximetry 94 96 Oxygen Delivery Method Room Air Oxygen Flow Rate 0 Narrative Exam Narrative: GENERAL APPEARANCE: Chronically ill-appearing male, obese with BMI of 38.4. sitting up in bedside chair. SKIN: Inspection of the skin reveals mild erythema, warmth, and tenderness of his right lower leg from his knee to ankle. Erythema is circumferential, but reportedly improved. HEENT: Normocephalic atraumatic, extraocular muscles are intact, oropharynx is clear and mucous membranes are moist, neck is supple without adenopathy NECK: Supple and symmetric. There was no thyroid enlargement, and no tenderness, or masses were felt. LUNGS: Auscultation of the lungs revealed no wheezes, rhonchi, or rales. CARDIOVASCULAR: There was a regular rate and rhythm without any murmurs, gallops, rubs. Peripheral pulses were 2+ and symmetric. ABDOMEN: Soft obese abdomen, nontender, non-distended. MUSCULOSKELETAL: There was RLE tenderness throughout, R knee and R french more prominently. No gross effusion to R knee. Difficult to assess given anasarca. EXTREMITIES: No cyanosis, clubbing. Anasarca with 2+ edema bilateral lower extemity. NEUROLOGIC: Alert and oriented x 3. Somewhat depressed affect. No focal neurological deficits. Gait was not assessed. Objective Labs Result Diagrams: 11/04/20 04:58 11/04/20 04:58 Labs: Laboratory Results - last 24 hr 11/03/20 11/03/20 11/03/20 15:06 15:06 15:06 WBC 15.2 H RBC 3.15 L Hgb 10.3 L Hct 31.2 L MCV 98.9 MCH 32.6 MCHC 33.0 RDW 14.9 H Plt Count 112 L Neut % (Auto) 87.1 H Lymph % (Auto) 2.5 L Marshall % (Auto) 9.2 Eos % (Auto) 0.8 L Baso % (Auto) 0.4 Neut # (Auto) 91097 H Lymph # (Auto) 400 L Marshall # (Auto) 1400 H Eos # (Auto) 100 Baso # (Auto) 100 Total Counted Seg Neutrophils % Band Neutrophils % Lymphocytes % (Manual) Monocytes % (Manual) Eosinophils % (Manual) Neutrophils # (Manual) RBC Morphology Anisocytosis PT 18.0 H INR 1.6 H APTT Sodium Potassium Chloride Carbon Dioxide BUN Creatinine Estimated GFR BUN/Creatinine Ratio Glucose Lactate Uric Acid Calcium Total Bilirubin AST ALT Alkaline Phosphatase NT-Pro-B Natriuret Pep 1530 H Total Protein Albumin Globulin Albumin/Globulin Ratio Procalcitonin SARS-CoV-2 (PCR) 11/03/20 11/03/20 11/03/20 15:06 15:06 15:06 WBC RBC Hgb Hct MCV MCH MCHC RDW Plt Count Neut % (Auto) Lymph % (Auto) Marshall % (Auto) Eos % (Auto) Baso % (Auto) Neut # (Auto) Lymph # (Auto) Marshall # (Auto) Eos # (Auto) Baso # (Auto) Total Counted Seg Neutrophils % Band Neutrophils % Lymphocytes % (Manual) Monocytes % (Manual) Eosinophils % (Manual) Neutrophils # (Manual) RBC Morphology Anisocytosis PT INR APTT 34 Sodium 132 L Potassium 5.0 Chloride 103 Carbon Dioxide 28 BUN 53 H Creatinine 1.39 H Estimated GFR 51.6 L BUN/Creatinine Ratio 38.1 H Glucose 183 H Lactate Uric Acid Calcium 9.3 Total Bilirubin 2.1 H AST 119 H ALT 58 H Alkaline Phosphatase 187 H NT-Pro-B Natriuret Pep Total Protein 7.5 Albumin 2.8 L Globulin 4.7 H Albumin/Globulin Ratio 0.6 L Procalcitonin 0.21 SARS-CoV-2 (PCR) 11/03/20 11/03/20 11/03/20 15:06 15:06 15:55 WBC RBC Hgb Hct MCV MCH MCHC RDW Plt Count Neut % (Auto) Lymph % (Auto) Marshall % (Auto) Eos % (Auto) Baso % (Auto) Neut # (Auto) Lymph # (Auto) Marshall # (Auto) Eos # (Auto) Baso # (Auto) Total Counted Seg Neutrophils % Band Neutrophils % Lymphocytes % (Manual) Monocytes % (Manual) Eosinophils % (Manual) Neutrophils # (Manual) RBC Morphology Anisocytosis PT INR APTT Sodium Potassium Chloride Carbon Dioxide BUN Creatinine Estimated GFR BUN/Creatinine Ratio Glucose Lactate 1.7 Uric Acid 5.4 Calcium Total Bilirubin AST ALT Alkaline Phosphatase NT-Pro-B Natriuret Pep Total Protein Albumin Globulin Albumin/Globulin Ratio Procalcitonin SARS-CoV-2 (PCR) Negative 11/04/20 11/04/20 04:58 04:58 WBC 14.6 H RBC 2.83 L Hgb 9.3 L Hct 27.8 L MCV 98.1 MCH 32.7 MCHC 33.3 RDW 15.1 H Plt Count 102 L Neut % (Auto) Not Reportable Lymph % (Auto) Not Reportable Marshall % (Auto) Not Reportable Eos % (Auto) Not Reportable Baso % (Auto) Not Reportable Neut # (Auto) Lymph # (Auto) Not Reportable Marshall # (Auto) Not Reportable Eos # (Auto) Baso # (Auto) Not Reportable Total Counted 100 Seg Neutrophils % 91.0 H Band Neutrophils % 1.0 L Lymphocytes % (Manual) 2.0 L Monocytes % (Manual) 5.0 Eosinophils % (Manual) 1.0 L Neutrophils # (Manual) 07483 H RBC Morphology See below Anisocytosis 1+ H PT INR APTT Sodium 132 L Potassium 4.7 Chloride 102 Carbon Dioxide 28 BUN 49 H Creatinine 1.30 H Estimated GFR 55.8 L BUN/Creatinine Ratio 37.7 H Glucose 131 H Lactate Uric Acid Calcium 9.1 Total Bilirubin 1.8 H AST 99 H ALT 51 H Alkaline Phosphatase 152 H NT-Pro-B Natriuret Pep Total Protein 6.8 Albumin 2.6 L Globulin 4.2 H Albumin/Globulin Ratio 0.6 L Procalcitonin SARS-CoV-2 (PCR) [facility] Medical History Anasarca Ascites Asthma Elevated brain natriuretic peptide (BNP) level Hepatitis C Hypertension Liver cancer Liver cirrhosis Surgical History History of surgery of liver Family History Father Trauma Mother Sjogrens syndrome Sister No significant medical problems Social History household members: spouse Smoking Status: Former smoker alcohol intake: former Assessment & Plan Assessment & Plan narrative: This is a 65-year-old male with a past medical history of hep C cirrhosis and hypertension who presented with acute onset of right french redness, and right knee pain. He is admitted for right lower extremity skin and soft tissue infection / cellulitis. 1. Right Leg skin and soft tissue infection / Cellulitis, present on admission. Active -mild redness of the french but significant right swelling/warmth/tenderness without redness of the knee -WBC 15.2 on admission, repeat 11/04 improved today. -Started Vancomycin per pharmacy, will add ceftriaxone for non-MRSA coverage of skin and soft tissue 2. Right knee inflammatory swelling, present on admission. Active -the right knee exam on admission suggested acute gout vs septic joint. Dr. Jin consulted and did not aspirate, low likelihood of septic joint. Differential does include known cellulitis. -Uric Acid level unremarkable at 5.4. -start prednisone today for probable gout flare. -RLE US negative for DVT. 3. Anemia, present on admission. Active -Hgb 10.3 on 11/03. Previous recorded hgb of 9.6 on 04/17/20. Repeat 11/04 at 9.3. Will continue to follow. 4. Anasarca, present on admission. Active -secondary to hepatitis C cirrhosis -Continue Spironolactone and Lasix 5. Protein Calorie Malnutrition, likely chronic, present on admission. Active -consultation to drum plater ordered 6. Medical Obesity, present on admission. Chronic. -he appears over nourished and also has a significant anasarca contribution 7. Chronic Kidney Disease Stage 3, present on admission. Chronic. -Creat 1.39 with GFR of 51.6 on 11/03. -Baseline from 04/29 of Creat 1.37 and GFR 52 8. Hepatitis-C Cirrhosis with Elevated INR, present on admission. Chronic -INR 1.6 with baseline 1.5 from 04/29 -Bilirubin 2.1 with baseline 2.9 from 04/29 -AST 119 with baseline 46 from 04/29 -ALT 58 with baseline 22 from 04/29 -Alk Phos 187 with baseline 80 from 04/29 Dispo: changed to inpatient status, will get PT/OT input regarding possible discharge to SNF or home, anticipate an additional 2 days of antibiotic therapy as an inpatient at this time, and will need to see if steroids do help with possible gout flare as noted above. Code: Full DVT: Lovenox daily.
[2020-11-04] MEDS: predniSONE 20 MG TABLET 30 MG PO (10:50)
[2020-11-04] MEDS: CEFTRIAXONE 1 GM/50 ML FROZ.PIGGY IV (10:51)
[2020-11-04 11:44] VITALS: BP 134/65; PULSE 83; RESP 16; TEMP 37.1; O2SAT 94
[2020-11-04] MEDS: VANCOMYCIN 1,250 MG/250 ML PIGGYBACK 250 MG IV (12:35)
[2020-11-04] MEDS: PANTOPRAZOLE 20 MG TABLET 40 MG PO (12:35)
--- NOTE | 2020-11-04 14:15 | PT.IIE ---
Surgical History (Last Reviewed 11/04/20 @ 07:56 by Frances Jin MD) History of surgery of liver Medical History (Last Reviewed 11/04/20 @ 07:56 by Frances Jin MD) Anasarca Ascites Asthma Elevated brain natriuretic peptide (BNP) level Hepatitis C Hypertension Liver cancer Liver cirrhosis Physical Therapy Inpatient Evaluation/Re-Eval M1 PT/OT-IP Prior Functional Status Start: 11/04/20 10:43 Freq: NEEDED Status: Active Protocol: Document 11/04/20 14:14 AW (Rec: 11/04/20 15:24 AW [id number]) Medical Review Prior Functional Status Medical History Reviewed Yes Communication Pt is an effective verbal communicator. Mobility and Gait Pt is essentially limited to household mobility with FWW. Pt states he has been largely bed-boung. Prior to April admission, pt was ambulatory with a single axillary crutch on the left side. Activities of Daily Living and IADL's Pt needs assist to don shoes and socks. His provides assist with showers. Pt has a system of buckets he uses to urinate without having to leave the bed. He ambulates ~ 15 feet with FWW to the toilet when he needs to move his bowels. He usually has someone with him when he walks to the bathroom. Prior Functional Level (Other details) Pt depends on his , Tayler , for transportation. Social History Household Members spouse Living Arrangements Mobile home Number of Floors (Floors) One Floor Number of Stairs To Enter/Railing? Packed dirt ramp and single step to enter at front of house. Home Environment Standard Height Toilet,Tub/ Shower Home Equipment Front Wheel Walker,Straight Cane,Crutches Employment Status Unemployed Additional Social History Comment Pt lives with his , Tayler , who works full-time at [employer]. She is off work on Tuesdays and Wednesdays. Pt's daughter, Farzana, lives in a trailer on the same property. She assists with some food prep. M2 PT-IP Current Condition Start: 11/04/20 10:43 Freq: NEEDED Status: Active Protocol: Document 11/04/20 14:14 AW (Rec: 11/04/20 15:24 AW [email or web address]) Physical Therapy Current Condition Current Condition Evaluation Date 11/04/20 Treatment Diagnosis RLE cellulitis; difficulty in walking Onset Date 11/02/20 M3 PT-IP Subjective Start: 11/04/20 10:43 Freq: NEEDED Status: Active Protocol: Document 11/04/20 14:14 AW (Rec: 11/04/20 15:24 AW [email or web address]) Subjective Physical Therapy Visit Type Type Initial Evaluation Visit Start Time 13:10 Visit Stop Time 14:14 Total Visit Minutes 26 Notes Split visit to accommodate pastoral care visit. Number of ELECTROLYTIC ETCHER Visits 0 Physical Therapy Visit Comments Patient Comments Pt would like to use the urinal. Therapy Pain Assessment Pain When Pain Assessed During Mobility Pain Present Pain Present Pain Reported Location Right Leg Intensity 9 Scale Used Numeric (0 - 10) Pain Management Techniques Modification of Treatment, Timing of Activity with Medications M4 PT-IP Mobility and Gait Start: 11/04/20 10:43 Freq: NEEDED Status: Active Protocol: Document 11/04/20 14:14 AW (Rec: 11/04/20 15:24 AW [email or web address]) PT-Transfer Assessment Sit to and From Stand Sit to and from Stand Minimal Assistance,1 Person Assistance,Use of Upper Extremities Equipment Transfer Assistive Device Gait Belt,Front Wheeled Walker Orthotic/Prosthetic Devices or Brace: No Transfers Transfer Destination Chair Transfer Technique Stand Step Pivot Transfer Ability Level of Assist Minimal Assistance Comments Mobility Comments Pt was sitting up in the chair as PT arrived. He scooted to EOC and stood from the chair min A x 1 with FWW. He complained of increased pain RLE but was able to ambulate a total of ~8 feet in the room using FWW CGA. In standing, he was able to use the urinal to void SBA. He requested return to the chair, requiring min A x 1 due to poorly-controlled descent. Pt was positioned on the chair with call light and all needs in reach. He agreed to use the call light for all mobility needs. Gait Assessment Gait Gait Assistance Required: Contact Guard Assist Distance (Feet) 8 Assistive Devices Assistive Device Gait Belt,Front Wheeled Walker Orthotic/Prosthetic Devices or Brace: No Gait Deviations General Gait Pattern Antalgic,Decreased Stride Length,Decreased Feet Clearance,Flexed Trunk,Lateral Trunk Lean,Step-to Gait,Wide Based Gait Factors Limiting Gait Function Factors Limiting Gait Function Decreased Activity Tolerance, Decreased Sensation,Decreased Strength,Difficulty Following Directions,Limited Range of Motion,Pain,Poor Balance,Poor Safety Awareness Comments Gait Comments Gait was slow and lumbering with pt complaining of pain and heaviness RLE. Stair Climbing Assessment Comments Stair Climbing Comments Not assessed. PT-Balance Assessment Sitting Balance and Reactions Static Sitting Balance Ability Good Dynamic Sitting Balance Ability Fair Standing Balance and Reactions Static Standing Balance Ability Fair Dynamic Standing Balance Ability Poor Device Used FWW M5 PT-IP Objective Assessments Start: 11/04/20 10:43 Freq: NEEDED Status: Active Protocol: Document 11/04/20 14:14 AW (Rec: 11/04/20 15:24 AW [email or web address]) Orientation Orientation/Cognition Level of Alertness Alert Orientation Name,Month,Place,Situation Language Function Ability No Deficits Noted Safety Awareness Decreased Safety Awareness Memory Description Short Term Impaired Gross Range of Motion Lower Extremity ROM Assessment Bilaterally Impaired Strength Lower Extremity Strength Assessment Bilaterally Impaired Hip 3+/5 Knee 4/5 Ankle L 4/5; R 3-/5 Sensation Assessment Sensation Gross Sensation Right LE Impaired Light Touch Impaired Proprioception (Position) Impaired Sensation Description Numbness Muscle Tone Muscle Tone WNL Yes M6 PT-IP Treatment Start: 11/04/20 10:43 Freq: NEEDED Status: Active Protocol: Document 11/04/20 14:14 AW (Rec: 11/04/20 15:24 AW [email or web address]) Physical Therapy Treatment Education Education Provided Safety M7 PT-IP Assessment and Plan Start: 11/04/20 10:43 Freq: NEEDED Status: Active Protocol: Document 11/04/20 14:14 AW (Rec: 11/04/20 15:24 AW [email or web address]) PT Summary Assessment and Plan Potential Rehabilitation Potential Good Status of Condition at Evaluation Evolving Summary Impairments Pain,ROM,Strength,Balance, Sensation,Bed Mobility, Transfers,Gait,Activity Tolerance Assessment Summary Kadeem is a 65 yo man seen for PT evaluation with admitting diagnosis of RLE cellulitis. At baseline, he ambulates limited household distances with FWW. Prior to admission in April, pt was ambulatory with a single axillary crutch for short community distances. On evaluation, pt required CGA to min assist with transfers and 8 feet ambulation with FWW. In the context of diminished baseline function and increased risk of falls, pt would benefit from SNF rehab prior to safe return home. If pt goes home, he will need HH PT. Goals Bed Mobility Goal Independent Transfer Goal Independent,Front Wheeled Walker Gait Goal Independent,Front Wheel Walker Gait Distance 75 Other Goals - up/down single step with FWW SBA Days to Meet Goals 8 Frequency of Treatment Frequency Of Treatment Once a Day Treatment Plan Physical Therapy Treatment Plan Bed Mobility Training,Transfer Training,Gait Training, Therapeutic Exercise,Balance Retraining,Discharge Planning, Neuromuscular Re-ed Other Recommendations and Next Treatment assess bed mobility; gait Focus training with FWW; mobility as tolerated Recommendations To Nursing Amount of Assist Needed 1 Person Assist Discharge Recommendations PT Discharge Recommendations Home with Assistance,Home Health,SNF Rehab Other Discharge Recommendations SNF vs home with assist and Transportation Needs at Discharge Private Vehicle,Wheelchair/ Cabulance
--- NOTE | 2020-11-04 14:49 | DIET.PN ---
Dietary Progress Note Assessment: Mr. Guzmán is a 65-year-old male with a past medical history of hep C cirrhosis/anasarca and hypertension who presented with acute onset of right french redness, and right knee pain. Pt endorses weight fluctuations r/t edema. His medical records reflect this, but it appears there may be some discrepancy in his weights. He reports trying to follow a low sodium diet at home. Common kemal include plain yogurt, chicken soup, fish w/ sauteed veggies. HT: 180.34cm WT: 124.7kg UBW: wt hx: 161kg (04/2020) 136kg (11/2019) BMI: 38.4 Labs: Na: 132 BUN: 53 Cr: 1.39 eGFR: 51.6 Glucose: 183, 131 T bili: 2.1 AST: 119 ALT: 58 MNA: 7 (malnutrition) Zacarias: 17 Nutrition Diagnosis: altered nutrition related laboratory values r/t kidney and liver dysfunction aeb elevated AST, ALT, T bili, BUN, Cr and reduced eGFR and full body anasarca. Interventions: 1. Reviewed food record and general nutrition goals for healthy weight. Pt reports intentional weight loss. Diet Order: General EER: 2100 lisbet (17 lisbet/kg obese); Pro: 100g (0.8g/kg renal insufficiency) Monitoring/Evaluations: weight, PO's, labs
--- NOTE | 2020-11-04 15:50 | CM.DPC ---
DCP Cont: IT HELP DESK ANALYST and IT HELP DESK ANALYST Student met with patient this afternoon. He confirmed he has been having difficulty with ADL's I have been bed ridden for 5-days before I came to the hospital. Patient possibly is a poor historian as he reported discrepancies between need for assistance and actual performance documented per nursing. Patient reports living at home with Tayler who completes chores and provides transportation. Patient reported he has previously had home health in the last year for approximately 4 months. He reported meeting and exceeding goals. He appears to be motivated for therapy and was agreeable to both home health and SNF placement expressing an understanding for the importance of Rehab. Patient is already enrolled in Medicaid and could benefit from [facility] for hand deicer element winder support as long-term plan. Will initiate [facility] for patient. Therapy evaluation currently pending, with patients permission placed call to [facility]. PLAN: SNF vs Home with home health TIFFANIE Jamison MSW Student
[2020-11-04 17:25] VITALS: BP 101/68; PULSE 84; RESP 17; TEMP 36.3; O2SAT 93
[2020-11-04 20:05] VITALS: BP 128/70; PULSE 72; RESP 18; TEMP 36.8; O2SAT 98
--- NOTE | 2020-11-04 23:32 | PC.NURSE ---
2+ Edema, firm, dry, raised lesions to RLE; LS diminished; mild to moderate pain, PO pain meds; pt denies nausea, tolerating diet; pt is call light, as needed for help with urinal at bedside
[2020-11-04 23:36] LABS: Acinetobacter baumannii Not Detected (Not Detect); Candida albicans Not Detected (Not Detect); Candida glabrata Not Detected (Not Detect); Candida krusei Not Detected (Not Detect); Candida parapsilosis Not Detected (Not Detect); Candida tropicalis Not Detected (Not Detect); E. coli Not Detected (Not Detect); Enterobacter cloacae complex Not Detected (Not Detect); Enterobacteriaceae species Not Detected (Not Detect); Enterococcus species Not Detected (Not Detect); Haemophilus influenzae Not Detected (Not Detect); Listeria monocytogenes Not Detected (Not Detect); Methicillin-resistant gene Not Detected (Not Detect); Neisseria meningitidis Not Detected (Not Detect); Proteus species Not Detected (Not Detect); Pseudomonas aeruginosa Not Detected (Not Detect); Serratia marcescens Not Detected (Not Detect); Staphylococcus species Detected (Not Detect); Streptococcus agalactiae (Gr B Not Detected (Not Detect); Streptococcus pneumonia Not Detected (Not Detect); Streptococcus pyogenes (Gr A) Not Detected (Not Detect); Streptococcus species Not Detected (Not Detect)
[2020-11-05] VITALS (7 sets, daily range): BP systolic 115–168; BP diastolic 55–75; PULSE 73–86; RESP 14–20; TEMP 36.3–37.1; O2SAT 94–97
[2020-11-05] MEDS: VANCOMYCIN 1,250 MG/250 ML PIGGYBACK 250 MG IV (01:19)
[2020-11-05] MEDS: OXYCODONE IR 5 MG TABLET PO ×2 (03:06→06:37)
[2020-11-05] MEDS: LIDOCAINE PATCH 1 EACH ADH..PATCH TOP (05:58)
[2020-11-05] MEDS: PANTOPRAZOLE 40 MG TABLET PO (06:00)
--- NOTE | 2020-11-05 06:26 | PC.NURSE ---
Pt stable through shift. Pain not well controlled- states 8/ pain around 0530. Collaborated with provider to obtain alternative method of pain relief- lidocaine patch rxed and applied to R hip. Pt tolerating well alongside PO pain medication. Pt shows minor confusion, not fully understanding instructions, showing minor anxiety towards movement of body and the possibility of IV lines being pulled. Pt reassured frequently. Pt expressing displeasure at needing to frequently urinate, educated on medication and disease process. Poor historian, contradicts self and abilities. Pt rec'ing intermittent IV abx, tolerating well. PO intake adequate. Edema 3+ BLE, redness still present on RLE alongside hardened bulbous deformations of skin along french.
[2020-11-05 08:33] LABS: Add Manual Diff / Slide Review NO; Basophils Absolute Auto 0 /uL (0-100); Basophils Percent Auto 0.3 % (0-2); Eosinophils Absolute Auto 200 /uL (0-450); Eosinophils Percent Auto 1.6 % (2-4); Hematocrit 28.7 % (41-53); Hemoglobin 9.4 g/dL (13.5-17.5); Lymphocytes Absolute Auto 500 /uL (1100-4500); Lymphocytes Percent Auto 3.5 % (25-40); Mean Corpuscular HGB Conc 32.9 % (30-36); Mean Corpuscular Hemoglobin 32.5 PG (26-34); Monocytes Absolute Auto 1300 /uL (0-900); Monocytes Percent Auto 8.8 % (3-14); Neutrophils Absolute Auto 13000 /uL (1500-7000); Neutrophils Percent Auto 85.8 % (50-75); Platelet Count 96 X10^3/uL (150-400); Red Cell Distribution Width 15.3 % (11.6-14.8); White Blood Cell Count 15.1 X10^3/uL (4.5-11.0)
[2020-11-05 08:37] LABS: Alanine Aminotransferase 50 IU/L (<50); Albumin 2.4 g/dL (3.5-5.0); Alkaline Phosphatase 147 U/L (38-126); Aspartate Aminotransferase 86 IU/L (17-59); BUN Creatinine Ratio 35.4 (6-22); Bilirubin Total 1.8 mg/dL (0.2-1.3); Bilirubin Unconjugated 1.4 mg/dL (0.0-1.1); Blood Urea Nitrogen 46 mg/dL (9-20); Calcium 8.5 mg/dL (8.4-10.2); Carbon Dioxide 27 mmol/L (22-32); Chloride 103 mmol/L (98-107); Estimated Glomerular Filt Rate 55.8 mL/min (>60); Globulin 3.9 g/dL (1.7-4.1); Glucose 139 mg/dL (80-110); Potassium 4.7 mmol/L (3.4-5.1); Sodium 131 mmol/L (137-145); Total Protein 6.3 g/dL (6.3-8.2)
[2020-11-05 08:38] LABS: Albumin Globulin Ratio 0.6 (1.0-2.8); HEMOLYSIS < 15 (0-50)
[2020-11-05] MEDS: ENOXAPARIN 40 MG/0.4 ML SYRINGE SUBCUT (08:53)
[2020-11-05] MEDS: FUROSEMIDE 20 MG TABLET 80 MG PO (08:53)
[2020-11-05] MEDS: SPIRONOLACTONE 25 MG TABLET 200 MG PO (08:53)
[2020-11-05] MEDS: predniSONE 20 MG TABLET 30 MG PO (08:54)
[2020-11-05] MEDS: NYSTATIN POWDER 15GM 1 APPLIC TOP ×2 (08:55→21:17)
[2020-11-05] MEDS: CEFTRIAXONE 1 GM/50 ML FROZ.PIGGY IV (08:56)
[2020-11-05] MEDS: SODIUM CHLORIDE 0.9% FLUSH 10 ML IV ×2 (08:56→21:12)
--- NOTE | 2020-11-05 10:28 | PC.NURSE ---
PATIENT REPORTS PAIN 7/10 AFTER MEDICATED WITH OXYCODONE THIS AM ON NOC SHIFT. STATES RIGHT HIP ONLY HURTS WITH AMBULATION. LIDO PATCH NOTED TO AREA. STATES RIGHT KNEE AND LOWER LEG TO FOOT VERY PAINFUL AND MAKES IT HARD TO WALK. PATIENT WAS AGREEABLE TO BED BATH AND ASSIST OOB TO RECLINER FOR INCREASED COMFORT. PATIENT IS NOW SLEEPING IN RECLINER AND APPEARS COMFORTABLE. DR. MAGUIRE NOTIFIED OF ELEVATED PAIN LEVEL DESPITE OXY THIS AM, AND MD STATES PLAN TO INCREASE DOSE. AWAITING NEW ORDER.
[2020-11-05] MEDS: OXYCODONE IR 10 MG TABLET PO ×3 (10:56→21:16)
[2020-11-05 13:39] LABS: Vancomycin Trough 22.4 ug/mL (10-20)
--- NOTE | 2020-11-05 14:08 | P.PN_ITS ---
Subjective Subjective Date Patient Seen: 11/05/20 Time Patient Seen: 14:08 Interval history: This is a 65-year-old male with a past medical history of hep C cirrhosis and hypertension who presented with acute onset of right french redness, and right knee pain. His R knee is still quite painful but controlled with oxycodone today. Redness is slowly improving but his leg still feels warm. Started on steroids yesterday for possible gout along with continued antibiotics for cellulitis. He denies complaints of fever, chills, nausea, vomiting, chest or abdominal pain, shortness of breath today. Exam Vital Signs (past 8 hours): - 11/05/20 08:00 11/05/20 11:45 Temperature 98.2 F 97.9 F Pulse Rate 86 85 Respiratory Rate 15 16 Blood Pressure 140/69 168/65 H Pulse Oximetry 94 94 Oxygen Delivery Method Room Air Oxygen Flow Rate 0 Narrative Exam Narrative: GENERAL APPEARANCE: Chronically ill-appearing male, obese with BMI of 38.4. sitting up in bedside chair. SKIN: Inspection of the skin reveals almost resolved erythema today but continued warmth, and now more located just distal to his knee. There are psoriatic plaques on his bilateral hands / fingers along with ? splinter hemo rrages in most fingernails bilaterally. HEENT: Normocephalic atraumatic, extraocular muscles are intact, oropharynx is clear and mucous membranes are moist, neck is supple without adenopathy NECK: Supple and symmetric. There was no thyroid enlargement, and no tenderness, or masses were felt. LUNGS: Auscultation of the lungs revealed no wheezes, rhonchi, or rales. CARDIOVASCULAR: There was a regular rate and rhythm without any murmurs, gallops, rubs. Peripheral pulses were 2+ and symmetric. ABDOMEN: Soft obese abdomen, nontender, non-distended. MUSCULOSKELETAL: There was RLE tenderness throughout, R knee and R french more prominently. No gross effusion to R knee. Difficult to assess given anasarca. EXTREMITIES: No cyanosis, clubbing. Anasarca with 2+ edema bilateral lower extemity. NEUROLOGIC: Alert and oriented x 3. Somewhat depressed affect. No focal neurological deficits. Gait was not assessed. Objective Labs Result Diagrams: 11/05/20 08:17 11/05/20 08:17 Labs: Laboratory Results - last 24 hr 11/03/20 11/05/20 11/05/20 15:40 08:17 08:17 WBC 15.1 H RBC 2.90 L Hgb 9.4 L Hct 28.7 L MCV 99.0 MCH 32.5 MCHC 32.9 RDW 15.3 H Plt Count 96 L Neut % (Auto) 85.8 H Lymph % (Auto) 3.5 L [place] % (Auto) 8.8 Eos % (Auto) 1.6 L Baso % (Auto) 0.3 Neut # (Auto) 62271 H Lymph # (Auto) 500 L [place] # (Auto) 1300 H Eos # (Auto) 200 Baso # (Auto) 0 Sodium 131 L Potassium 4.7 Chloride 103 Carbon Dioxide 27 BUN 46 H Creatinine 1.30 H Estimated GFR 55.8 L BUN/Creatinine Ratio 35.4 H Glucose 139 H Calcium 8.5 Total Bilirubin 1.8 H Conjugated Bilirubin 0.0 Unconjugated Bilirubin 1.4 H AST 86 H ALT 50 H Alkaline Phosphatase 147 H Total Protein 6.3 Albumin 2.4 L Globulin 3.9 Albumin/Globulin Ratio 0.6 L Vancomycin Trough A. baumannii (PCR) Not detected Carmen albicans (PCR) Not detected C. glabrata (PCR) Not detected C. krusei (PCR) Not detected C. parapsilosis (PCR) Not detected C. tropicalis (PCR) Not detected Enterobacteriac sp PCR Not detected E. cloacae complex PCR Not detected Enterococcus sp PCR Not detected E. coli (PCR) Not detected H. influenzae (PCR) Not detected Klebsiella oxytoca PCR Not detected Klebsiella pneumoniae Not detected List. monocytogenes PCR Not detected N. meningitidis (PCR) Not detected Proteus species (PCR) Not detected Serratia marcescens PCR Not detected Staphylococcus sp PCR Detected H Staph aureus (PCR) Detected H mecA-Methicil Res Gene Not detected Streptococcus sp PCR Not detected Group A Strep (PCR) Not detected Strep agalactiae (PCR) Not detected Strep pneumoniae (PCR) Not detected P. aeruginosa (PCR) Not detected Dion/B-Vanco Res Genes Not Reportable KPC-Carbap Res Gene PCR Not Reportable 11/05/20 12:49 WBC RBC Hgb Hct MCV MCH MCHC RDW Plt Count Neut % (Auto) Lymph % (Auto) [place] % (Auto) Eos % (Auto) Baso % (Auto) Neut # (Auto) Lymph # (Auto) [place] # (Auto) Eos # (Auto) Baso # (Auto) Sodium Potassium Chloride Carbon Dioxide BUN Creatinine Estimated GFR BUN/Creatinine Ratio Glucose Calcium Total Bilirubin Conjugated Bilirubin Unconjugated Bilirubin AST ALT Alkaline Phosphatase Total Protein Albumin Globulin Albumin/Globulin Ratio Vancomycin Trough 22.4 H* A. baumannii (PCR) Carmen albicans (PCR) C. glabrata (PCR) C. krusei (PCR) C. parapsilosis (PCR) C. tropicalis (PCR) Enterobacteriac sp PCR E. cloacae complex PCR Enterococcus sp PCR E. coli (PCR) H. influenzae (PCR) Klebsiella oxytoca PCR Klebsiella pneumoniae List. monocytogenes PCR N. meningitidis (PCR) Proteus species (PCR) Serratia marcescens PCR Staphylococcus sp PCR Staph aureus (PCR) mecA-Methicil Res Gene Streptococcus sp PCR Group A Strep (PCR) Strep agalactiae (PCR) Strep pneumoniae (PCR) P. aeruginosa (PCR) Dion/B-Vanco Res Genes KPC-Carbap Res Gene PCR PFSH Medical History Anasarca Ascites Asthma Elevated brain natriuretic peptide (BNP) level Hepatitis C Hypertension Liver cancer Liver cirrhosis Surgical History History of surgery of liver Family History Father Trauma Mother Sjogrens syndrome Sister No significant medical problems Social History household members: spouse Smoking Status: Former smoker alcohol intake: former Assessment & Plan Assessment & Plan narrative: This is a 65-year-old male with a past medical history of hep C cirrhosis and hypertension who presented with acute onset of right french redness, and right knee pain. He is admitted for right lower extremity skin and soft tissue infection / cellulitis and presumed gout. 1. Right Leg skin and soft tissue infection / Cellulitis, present on admission. Active -mild redness of the french but significant right swelling/warmth/tenderness without redness of the knee -WBC 15.2 on admission, has been stable around this value since but also started on steroids. -Started Vancomycin per pharmacy, added ceftriaxone for non-MRSA coverage of skin and soft tissue 2. Right knee inflammatory swelling, present on admission. Active -the right knee exam on admission suggested acute gout vs septic joint. Dr. Jin consulted and did not aspirate, low likelihood of septic joint. There is no effusion on knee imaging. Differential does include known cellulitis. -Uric Acid level unremarkable at 5.4. -started prednisone today for probable gout flare, will increase from 30 to 40 mg startinng tomorrow to see if improvement in symptoms. Consider repeat imaging tomorrow if continued pain. -RLE US negative for DVT. 3. Anemia, present on admission. Active -Hgb 10.3 on 11/03. Previous recorded hgb of 9.6 on 04/17/20. Repeat 11/04 at 9.3. Will continue to follow. 4. Anasarca, present on admission. Active -secondary to hepatitis C cirrhosis -Continue Spironolactone and Lasix 5. Protein Calorie Malnutrition, likely chronic, present on admission. Active -consultation to auto clocks repairer 6. Medical Obesity, present on admission. Chronic. -he appears over nourished and also has a significant anasarca contribution 7. Chronic Kidney Disease Stage 3, present on admission. Chronic. -Creat 1.39 with GFR of 51.6 on 11/03 and has been stable during admission thus far. -Baseline from 04/29 of Creat 1.37 and GFR 52 8. Hepatitis-C Cirrhosis with Elevated INR, present on admission. Chronic Dispo: inpatient status, will need to see how well he is ambulating in a day or two after giving R knee probable gouty flare time to resolve after steroids initiated. Continue PT/OT. Code: Full DVT: Lovenox daily.
--- NOTE | 2020-11-05 14:18 | CM.DANOTE ---
DCP/continued: Reviewed chart. Current recommendation is SNF for rehabilitation at time of d/c. Received phone call from March at [facility]. She reports they can accept. Patient will qualify for SNF on 11-07-20. PASRR completed. P: Anticipate d/c to [facility] if rehab continues to be recommended. Otherwise patient agreeable to home with home health. TIFFANIE Jamison
--- NOTE | 2020-11-05 15:43 | PT.IPTN ---
Current Diagnoses Cellulitis of right lower limb (11/04/20) Physical Therapy Treatment Note M2 PT-IP Current Condition Start: 11/04/20 10:43 Freq: NEEDED Status: Active Protocol: Document 11/04/20 14:14 AW (Rec: 11/04/20 15:24 AW [email or web address]) Physical Therapy Current Condition Current Condition Evaluation Date 11/04/20 Treatment Diagnosis RLE cellulitis; difficulty in walking Onset Date 11/02/20 M3 PT-IP Subjective Start: 11/04/20 10:43 Freq: NEEDED Status: Active Protocol: Document 11/05/20 14:45 CLB (Rec: 11/05/20 15:43 CLB [id number]) Subjective Physical Therapy Visit Type Type Treatment Note Visit Start Time 14:45 Visit Stop Time 15:14 Total Visit Minutes 29 Number of GIS DATABASE ADMINISTRATOR Visits 1 Physical Therapy Visit Comments Patient Comments Pt willing to try and walk. Therapy Pain Assessment Pain When Pain Assessed During Mobility Pain Present Pain Present Pain Reported Location Right Leg Intensity 5 Scale Used 8/10 in WB Pain Management Techniques Modification of Treatment, Timing of Activity with Medications M4 PT-IP Mobility and Gait Start: 11/04/20 10:43 Freq: NEEDED Status: Active Protocol: Document 11/05/20 14:45 CLB (Rec: 11/05/20 15:43 CLB [id number]) PT-Transfer Assessment Sit to and From Stand Sit to and from Stand Minimal Assistance,1 Person Assistance,Use of Upper Extremities Equipment Transfer Assistive Device Gait Belt,Front Wheeled Walker Orthotic/Prosthetic Devices or Brace: No Transfers Transfer Destination Chair Comments Mobility Comments Pt in chair able to scoot to EOB to use urinal, Wide FWW retrieved for pt use. Pt stood requiring Min A to position RLE and Min A for standing. Pt the performed weight shifts and small standing marches. Pt shakey and didn't feel he would be able to ambulate due to pain. Pt sat down CGA. Pt then stood one more time Min A . Pt performed AP's, QS and GS . Pt left in reclined chair with pillow under legs. All needs within reach. Gait Assessment Comments Gait Comments unable due to weakness and pain. M5 PT-IP Objective Assessments Start: 11/04/20 10:43 Freq: NEEDED Status: Active Protocol: Document 11/04/20 14:14 AW (Rec: 11/04/20 15:24 AW [email or web address]) Orientation Orientation/Cognition Level of Alertness Alert Orientation Name,Month,Place,Situation Language Function Ability No Deficits Noted Safety Awareness Decreased Safety Awareness Memory Description Short Term Impaired Gross Range of Motion Lower Extremity ROM Assessment Bilaterally Impaired Strength Lower Extremity Strength Assessment Bilaterally Impaired Hip 3+/5 Knee 4/5 Ankle L 4/5; R 3-/5 Sensation Assessment Sensation Gross Sensation Right LE Impaired Light Touch Impaired Proprioception (Position) Impaired Sensation Description Numbness Muscle Tone Muscle Tone WNL Yes M6 PT-IP Treatment Start: 11/04/20 10:43 Freq: NEEDED Status: Active Protocol: Document 11/05/20 14:45 CLB (Rec: 11/05/20 15:43 CLB [id number]) Physical Therapy Treatment Exercises Exercises Ankle Pumps,Gluteal Sets,Quad Sets Other Treatments Other Treatment Performed standing marches and wt shifts . M7 PT-IP Assessment and Plan Start: 11/04/20 10:43 Freq: NEEDED Status: Active Protocol: Document 11/05/20 14:45 CLB (Rec: 11/05/20 15:43 CLB [id number]) PT Summary Assessment and Plan Potential Rehabilitation Potential Good Summary Impairments Pain,ROM,Strength,Balance, Sensation,Bed Mobility, Transfers,Gait,Activity Tolerance Assessment Summary Pt with increased pain in RLE prevented pt from ambulating once in standing. Pt requires Min A for sit<>stand and upon standing was shakey. Pt performed standing marches and seated ther ex. At this time pt would benefit from SNF rehab to improve strength for functional mobility before returning home. Goals Bed Mobility Goal Independent Transfer Goal Independent,Front Wheeled Walker Gait Goal Independent,Front Wheel Walker Gait Distance 75 Other Goals - up/down single step with FWW SBA Days to Meet Goals 8 Frequency of Treatment Frequency Of Treatment Once a Day Treatment Plan Other Recommendations and Next Treatment assess bed mobility, transfers Focus , gait training with chair follow as able. Recommendations To Nursing Amount of Assist Needed 1 Person Assist Discharge Recommendations PT Discharge Recommendations Home with Assistance,Home Health,SNF Rehab Other Discharge Recommendations SNF vs home with assist and Transportation Needs at Discharge Private Vehicle,Wheelchair/ Cabulance
[2020-11-05] MEDS: FUROSEMIDE 40 MG TABLET 80 MG PO (21:12)
[2020-11-05] MEDS: VANCOMYCIN 1,000 MG/200 ML PIGGYBACK 200 MG IV (21:12)
[2020-11-06] MEDS: OXYCODONE IR 10 MG TABLET PO ×3 (01:02→20:42)
[2020-11-06 04:29] VITALS: BP 128/74; PULSE 80; RESP 16; TEMP 37.3; O2SAT 96
[2020-11-06 06:00] LABS: Add Manual Diff / Slide Review NO; Basophils Absolute Auto 0 /uL (0-100); Basophils Percent Auto 0.1 % (0-2); Eosinophils Absolute Auto 300 /uL (0-450); Hematocrit 28.4 % (41-53); Hemoglobin 9.5 g/dL (13.5-17.5); Lymphocytes Absolute Auto 600 /uL (1100-4500); Lymphocytes Percent Auto 4.6 % (25-40); Mean Corpuscular HGB Conc 33.5 % (30-36); Mean Corpuscular Hemoglobin 32.9 PG (26-34); Mean Corpuscular Volume 98.1 fL (80-100); Monocytes Absolute Auto 1200 /uL (0-900); Monocytes Percent Auto 8.9 % (3-14); Neutrophils Absolute Auto 11600 /uL (1500-7000); Neutrophils Percent Auto 84.4 % (50-75); Platelet Count 95 X10^3/uL (150-400); Red Cell Distribution Width 15.5 % (11.6-14.8); White Blood Cell Count 13.7 X10^3/uL (4.5-11.0)
[2020-11-06 06:05] LABS: Alanine Aminotransferase 52 IU/L (<50); Albumin 2.4 g/dL (3.5-5.0); Albumin Globulin Ratio 0.6 (1.0-2.8); Alkaline Phosphatase 155 U/L (38-126); Aspartate Aminotransferase 81 IU/L (17-59); BUN Creatinine Ratio 32.1 (6-22); Bilirubin Total 1.4 mg/dL (0.2-1.3); Bilirubin Unconjugated 1.1 mg/dL (0.0-1.1); Blood Urea Nitrogen 44 mg/dL (9-20); Calcium 8.4 mg/dL (8.4-10.2); Carbon Dioxide 29 mmol/L (22-32); Chloride 102 mmol/L (98-107); Estimated Glomerular Filt Rate 52.5 mL/min (>60); Globulin 4.1 g/dL (1.7-4.1); Glucose 159 mg/dL (80-110); HEMOLYSIS < 15 (0-50); Magnesium 1.8 mg/dL (1.6-2.3); Potassium 4.5 mmol/L (3.4-5.1); Sodium 133 mmol/L (137-145); Total Protein 6.5 g/dL (6.3-8.2)
[2020-11-06] MEDS: PANTOPRAZOLE 40 MG TABLET PO (06:18)
--- NOTE | 2020-11-06 06:59 | PC.NURSE ---
Pt stable through shift. Pain controlled with medications. Pt having difficulty moving self in bed. Able to urinate in urinal with no difficulty.
[2020-11-06 07:55] VITALS: BP 140/75; PULSE 76; RESP 16; TEMP 36.4; O2SAT 94
[2020-11-06] MEDS: predniSONE 20 MG TABLET 40 MG PO (09:27)
[2020-11-06] MEDS: VANCOMYCIN 1,000 MG/200 ML PIGGYBACK 200 MG IV ×2 (09:27→20:43)
[2020-11-06] MEDS: FUROSEMIDE 40 MG TABLET 80 MG PO ×2 (09:27→16:29)
[2020-11-06] MEDS: NYSTATIN POWDER 15GM 1 APPLIC TOP ×2 (09:33→20:43)
[2020-11-06] MEDS: SPIRONOLACTONE 25 MG TABLET 200 MG PO (09:33)
[2020-11-06] MEDS: ENOXAPARIN 40 MG/0.4 ML SYRINGE SUBCUT (09:33)
[2020-11-06] MEDS: SODIUM CHLORIDE 0.9% FLUSH 10 ML IV (09:33)
--- NOTE | 2020-11-06 10:21 | PC.NURSE ---
Assess- Patient is A&Ox3, given 10mg of po oxycodone as pain was 5/10. This has been effective for pain control. Patient has an aquacel to her r.knee with navya wrap in place. She prefers to have an ice pack in place. Up to bathroom with 1 PA. She is resting now in the supine position and cms wnl x2.
--- NOTE | 2020-11-06 10:29 | PC.NURSE ---
Addendum entered by Belem Rush R.N. 11/06/20 13:25: Patient is sitting up in chair and denies pain. He is content and voices no concerns at this time. Original Note: Assess- Patient is A&Ox3, he denies pain at this time and is a bit sleepy. Up to chair with 1 person assist, and sitting up in chair. Skin with many issues, please see under physical assessment. Patient has 3+ edema to bilateral lower extremities, r.knee is pink but states that area is looking better. Patient did some oral hygiene and brushed his teeth this morning. Resting in chair now.
--- NOTE | 2020-11-06 11:18 | PT.IPTN ---
Current Diagnoses Cellulitis of right lower limb (11/04/20) Physical Therapy Treatment Note M2 PT-IP Current Condition Start: 11/04/20 10:43 Freq: NEEDED Status: Active Protocol: Document 11/04/20 14:14 AW (Rec: 11/04/20 15:24 AW [email or web address]) Physical Therapy Current Condition Current Condition Evaluation Date 11/04/20 Treatment Diagnosis RLE cellulitis; difficulty in walking Onset Date 11/02/20 M3 PT-IP Subjective Start: 11/04/20 10:43 Freq: NEEDED Status: Active Protocol: Document 11/06/20 11:06 HH (Rec: 11/06/20 11:18 HH [email or web address]) Subjective Physical Therapy Visit Type Type Treatment Note Visit Start Time 10:50 Visit Stop Time 11:04 Total Visit Minutes 14 Number of CAGER OPERATOR Visits 0 Physical Therapy Visit Comments Patient Comments Pt willing to try and walk. Therapy Pain Assessment Pain When Pain Assessed During Mobility Pain Present Pain Present Pain Reported Location Right Leg Intensity 5 Scale Used 8/10 in WB Pain Management Techniques Modification of Treatment, Timing of Activity with Medications M4 PT-IP Mobility and Gait Start: 11/04/20 10:43 Freq: NEEDED Status: Active Protocol: Document 11/06/20 11:06 HH (Rec: 11/06/20 11:18 HH [email or web address]) PT-Transfer Assessment Sit to and From Stand Sit to and from Stand Minimal Assistance,1 Person Assistance,Use of Upper Extremities Equipment Transfer Assistive Device Gait Belt,Front Wheeled Walker Orthotic/Prosthetic Devices or Brace: No Transfers Transfer Destination Chair Transfer Technique Stand Step Pivot Transfer Ability Level of Assist Minimal Assistance,Use of Upper Extremities Comments Mobility Comments pt in chair upon PT arrival. willing to mobilize with PT. assisted pt to marisol socks. He then used a long towel to position his R foot close to chair for STS. Pt then needed min A for sit to stand by pushing off from chair to FWW. He then amb slowly with weight mostly on L side d/t significant R knee pain. Pt walked up to window and turned around and to room door. He then requested to back to chair d/t pain. Pt does need min A on walker during turns and transfer from stand to sit to keep his walker close. Pt seems to be forgetful and needed reminders for his current tasks. Pt returned to chair and legs were elevated. Chair alarm activated and call light placed within reach. Gait Assessment Gait Gait Assistance Required: Contact Guard Assist,Minimum Assistance,1 Person Assist Distance (Feet) 20 Able to Maintain Weight Bearing Status Yes During Gait Assistive Devices Assistive Device Gait Belt,Front Wheeled Walker Orthotic/Prosthetic Devices or Brace: No Gait Deviations General Gait Pattern Antalgic,Decreased Stride Length,Decreased Feet Clearance,Flexed Trunk,Lateral Trunk Lean,Step-to Gait,Wide Based Gait Factors Limiting Gait Function Factors Limiting Gait Function Decreased Activity Tolerance, Decreased Sensation,Decreased Strength,Difficulty Following Directions,Limited Range of Motion,Pain,Poor Balance,Poor Safety Awareness Comments Gait Comments see mobility comments. Stair Climbing Assessment Comments Stair Climbing Comments Not assessed. PT-Balance Assessment Sitting Balance and Reactions Static Sitting Balance Ability Good Dynamic Sitting Balance Ability Fair Standing Balance and Reactions Static Standing Balance Ability Good Dynamic Standing Balance Ability Fair Device Used FWW M5 PT-IP Objective Assessments Start: 11/04/20 10:43 Freq: NEEDED Status: Active Protocol: Document 11/04/20 14:14 AW (Rec: 11/04/20 15:24 AW [email or web address]) Orientation Orientation/Cognition Level of Alertness Alert Orientation Name,Month,Place,Situation Language Function Ability No Deficits Noted Safety Awareness Decreased Safety Awareness Memory Description Short Term Impaired Gross Range of Motion Lower Extremity ROM Assessment Bilaterally Impaired Strength Lower Extremity Strength Assessment Bilaterally Impaired Hip 3+/5 Knee 4/5 Ankle L 4/5; R 3-/5 Sensation Assessment Sensation Gross Sensation Right LE Impaired Light Touch Impaired Proprioception (Position) Impaired Sensation Description Numbness Muscle Tone Muscle Tone WNL Yes M6 PT-IP Treatment Start: 11/04/20 10:43 Freq: NEEDED Status: Active Protocol: Document 11/05/20 14:45 CLB (Rec: 11/05/20 15:43 CLB [id number]) Physical Therapy Treatment Exercises Exercises Ankle Pumps,Gluteal Sets,Quad Sets Other Treatments Other Treatment Performed standing marches and wt shifts . M7 PT-IP Assessment and Plan Start: 11/04/20 10:43 Freq: NEEDED Status: Active Protocol: Document 11/06/20 11:06 HH (Rec: 11/06/20 11:18 HH [email or web address]) PT Summary Assessment and Plan Potential Rehabilitation Potential Good Status of Condition at Evaluation Evolving Summary Impairments Pain,ROM,Strength,Balance, Sensation,Bed Mobility, Transfers,Gait,Activity Tolerance Progress Towards Goals Slow Progress due to Pain Assessment Summary pt shows slight improved activity tolerance with increased amb distance today but cont to be limited by significant R LE pain during WB. Pt completed approx 20ft with FWW only and he overall needed min A for mobility. Cont rec SNF to improve his mobility and strength before returning home Goals Bed Mobility Goal Independent Transfer Goal Independent,Front Wheeled Walker Gait Goal Independent,Front Wheel Walker Gait Distance 75 Other Goals - up/down single step with FWW SBA Days to Meet Goals 8 Frequency of Treatment Frequency Of Treatment Once a Day Treatment Plan Physical Therapy Treatment Plan Bed Mobility Training,Transfer Training,Gait Training, Therapeutic Exercise,Balance Retraining,Discharge Planning, Neuromuscular Re-ed Other Recommendations and Next Treatment assess bed mobility; gait Focus training with FWW; mobility as tolerated Recommendations To Nursing Amount of Assist Needed 1 Person Assist Discharge Recommendations PT Discharge Recommendations Home with Assistance,Home Health,SNF Rehab Other Discharge Recommendations SNF vs home with assist and HH Transportation Needs at Discharge Private Vehicle,Wheelchair/ Cabulance
[2020-11-06 11:25] VITALS: BP 150/77; PULSE 73; RESP 16; TEMP 36.6; O2SAT 94
[2020-11-06] MEDS: CEFTRIAXONE 1 GM/50 ML FROZ.PIGGY IV (12:17)
--- NOTE | 2020-11-06 14:59 | PM.PN.1 ---
Subjective Subjective Date Patient Seen: 11/06/20 Time Patient Seen: 14:59 Interval history: This is a 65-year-old male with a past medical history of hep C cirrhosis and hypertension who presented with acute onset of right french redness, and right knee pain. His R knee is still quite painful but overall slowly improving. He was able to walk a bit but not much with PT today. Started on steroids for possible gout along with continued antibiotics for cellulitis. He denies complaints of fever, chills, nausea, vomiting, chest or abdominal pain, shortness of breath today. Exam Vital Signs (past 8 hours): - 11/06/20 07:55 11/06/20 11:25 Temperature 97.5 F L 98 F Pulse Rate 76 73 Respiratory Rate 16 16 Blood Pressure 140/75 150/77 H Pulse Oximetry 94 94 Oxygen Delivery Method Room Air Oxygen Flow Rate 0 Narrative Exam Narrative: GENERAL APPEARANCE: Chronically ill-appearing male, obese with BMI of 38.4. sitting up in bedside chair. SKIN: Inspection of the skin reveals mild erythema, warmth, and tenderness of his right lower leg from his knee to ankle. Erythema is circumferential, but reportedly improved. HEENT: Normocephalic atraumatic, extraocular muscles are intact, oropharynx is clear and mucous membranes are moist, neck is supple without adenopathy NECK: Supple and symmetric. There was no thyroid enlargement, and no tenderness, or masses were felt. LUNGS: Auscultation of the lungs revealed no wheezes, rhonchi, or rales. CARDIOVASCULAR: There was a regular rate and rhythm without any murmurs, gallops, rubs. Peripheral pulses were 2+ and symmetric. ABDOMEN: Soft obese abdomen, nontender, non-distended. MUSCULOSKELETAL: There was improved RLE tenderness, now localized to small portions around, but not in his R knee. No gross effusion to R knee. Difficult to assess given anasarca. EXTREMITIES: No cyanosis, clubbing. Anasarca with 2+ edema bilateral lower extemity. NEUROLOGIC: Alert and oriented x 3. Somewhat depressed affect. No focal neurological deficits. Gait was not assessed. Objective Labs Result Diagrams: 11/06/20 05:08 11/06/20 05:08 Labs: Laboratory Results - last 24 hr 11/06/20 11/06/20 05:08 05:08 WBC 13.7 H RBC 2.90 L Hgb 9.5 L Hct 28.4 L MCV 98.1 MCH 32.9 MCHC 33.5 RDW 15.5 H Plt Count 95 L Neut % (Auto) 84.4 H Lymph % (Auto) 4.6 L [place] % (Auto) 8.9 Eos % (Auto) 2.0 Baso % (Auto) 0.1 Neut # (Auto) 37155 H Lymph # (Auto) 600 L [place] # (Auto) 1200 H Eos # (Auto) 300 Baso # (Auto) 0 Sodium 133 L Potassium 4.5 Chloride 102 Carbon Dioxide 29 BUN 44 H Creatinine 1.37 H Estimated GFR 52.5 L BUN/Creatinine Ratio 32.1 H Glucose 159 H Calcium 8.4 Magnesium 1.8 Total Bilirubin 1.4 H Conjugated Bilirubin 0.0 Unconjugated Bilirubin 1.1 AST 81 H ALT 52 H Alkaline Phosphatase 155 H Total Protein 6.5 Albumin 2.4 L Globulin 4.1 Albumin/Globulin Ratio 0.6 L PFSH Medical History Anasarca Ascites Asthma Elevated brain natriuretic peptide (BNP) level Hepatitis C Hypertension Liver cancer Liver cirrhosis Surgical History History of surgery of liver Family History Father Trauma Mother Sjogrens syndrome Sister No significant medical problems Social History household members: spouse Smoking Status: Former smoker alcohol intake: former Assessment & Plan Assessment & Plan narrative: This is a 65-year-old male with a past medical history of hep C cirrhosis and hypertension who presented with acute onset of right french redness, and right knee pain. He is admitted for right lower extremity skin and soft tissue infection / cellulitis and presumed gout. 1. Right Leg skin and soft tissue infection / Cellulitis, present on admission. Active -mild redness of the french but significant right swelling/warmth/tenderness without redness of the knee -WBC 15.2 on admission, has been stable around this value since but also started on steroids. -Started Vancomycin per pharmacy, added ceftriaxone for non-MRSA coverage of skin and soft tissue 2. Right knee inflammatory swelling, present on admission. Active -the right knee exam on admission suggested acute gout vs septic joint. Dr. Jin consulted and did not aspirate, low likelihood of septic joint. There is no effusion on knee imaging. Differential does include known cellulitis. -Uric Acid level unremarkable at 5.4. -started prednisone for probable gout flare with slow improvement over the past two days. Will continue prednisone 40 mg. -RLE US negative for DVT. 3. Anemia, present on admission. Active -Hgb 10.3 on 11/03. Previous recorded hgb of 9.6 on 04/17/20. Repeat 11/04 at 9.3. Will continue to follow. 4. Anasarca, present on admission. Active -secondary to hepatitis C cirrhosis -Continue Spironolactone and Lasix 5. Protein Calorie Malnutrition, likely chronic, present on admission. Active -consultation to flume tender 6. Medical Obesity, present on admission. Chronic. -he appears over nourished and also has a significant anasarca contribution 7. Chronic Kidney Disease Stage 3, present on admission. Chronic. -Creat 1.39 with GFR of 51.6 on 11/03 and has been stable during admission thus far. -Baseline from 04/29 of Creat 1.37 and GFR 52 8. Hepatitis-C Cirrhosis with Elevated INR, present on admission. Chronic 9. Possible staph bacteremia - blood cultures / positive for staph aureus, highly suspect contaminant at this time. Repeated blood cultures today, will await results but has been on appropriate therapy as noted above. Dispo: inpatient status, will need to see how well he is ambulating in a day or two after giving R knee probable gouty flare time to resolve after steroids initiated. Continue PT/OT. Code: Full DVT: Lovenox daily.
[2020-11-06 16:34] VITALS: BP 134/69; PULSE 74; RESP 18; TEMP 36.4; O2SAT 97
[2020-11-06 21:21] VITALS: BP 127/65; PULSE 73; RESP 18; TEMP 36; O2SAT 94
[2020-11-06 23:51] VITALS: BP 141/70; PULSE 62; RESP 18; TEMP 37.1; O2SAT 96
--- NOTE | 2020-11-07 01:41 | PC.NURSE ---
Addendum entered by Nicole Lemon R.N. 11/07/20 04:54: States pain is 4/10 but initially not wanting pain medication as afraid it will count toward the maximum number of pills he can get once he is discharged. Once assured that has nothing to do with hospital used pain meds he requested and was medicated with Oxycodone. Original Note: Patient is alert and oriented; speech is slow but appropriate. Breath sounds diminished but CTA with RA sat of 96%. HRR. BP fluctuates with last reading being higher at 141/70. Denies nausea. BT hypoactive; abdomen is soft. Complains of frequency/urgency with urination but denies dysuria. Sleeping in recliner but is able to move himself in the chair. Gait not assessed but states he uses walker and 1 assist. Admits to generalized weakness greater in bilateral LE> 2+ bilateral LE edema. Right LE skin is lightly pink with dry skin/scaliness. States pain is the best it's been since I came in at 4/10 and declines offer of pain medication. Calf SCD applied to left leg only per patient request. Fall risk score is high and chair alarm is activated. On contact isolation as blood cultures are growing staph aureus.
[2020-11-07 03:52] VITALS: BP 122/80; PULSE 67; RESP 18; TEMP 36.4; O2SAT 97
[2020-11-07] MEDS: OXYCODONE IR 10 MG TABLET PO ×2 (04:49→16:28)
[2020-11-07] MEDS: PANTOPRAZOLE 40 MG TABLET PO (06:06)
[2020-11-07 06:27] LABS: Add Manual Diff / Slide Review NO; Basophils Absolute Auto 0 /uL (0-100); Basophils Percent Auto 0.2 % (0-2); Eosinophils Absolute Auto 200 /uL (0-450); Eosinophils Percent Auto 1.4 % (2-4); Hemoglobin 9.8 g/dL (13.5-17.5); Lymphocytes Absolute Auto 400 /uL (1100-4500); Lymphocytes Percent Auto 3.6 % (25-40); Mean Corpuscular HGB Conc 33.7 % (30-36); Mean Corpuscular Hemoglobin 33.3 PG (26-34); Mean Corpuscular Volume 98.9 fL (80-100); Monocytes Absolute Auto 900 /uL (0-900); Monocytes Percent Auto 7.9 % (3-14); Neutrophils Absolute Auto 9500 /uL (1500-7000); Neutrophils Percent Auto 86.9 % (50-75); Platelet Count 74 X10^3/uL (150-400); Red Blood Cell Count 2.93 X10^6/uL (4.5-5.9); Red Cell Distribution Width 15.5 % (11.6-14.8); White Blood Cell Count 10.9 X10^3/uL (4.5-11.0)
[2020-11-07 06:35] LABS: Alanine Aminotransferase 56 IU/L (<50); Albumin 2.5 g/dL (3.5-5.0); Albumin Globulin Ratio 0.6 (1.0-2.8); Alkaline Phosphatase 144 U/L (38-126); Aspartate Aminotransferase 79 IU/L (17-59); BUN Creatinine Ratio 33.3 (6-22); Bilirubin Total 1.6 mg/dL (0.2-1.3); Bilirubin Unconjugated 1.3 mg/dL (0.0-1.1); Blood Urea Nitrogen 44 mg/dL (9-20); Calcium 8.3 mg/dL (8.4-10.2); Carbon Dioxide 28 mmol/L (22-32); Chloride 102 mmol/L (98-107); Estimated Glomerular Filt Rate 54.8 mL/min (>60); Glucose 157 mg/dL (80-110); HEMOLYSIS < 15 (0-50); Magnesium 1.8 mg/dL (1.6-2.3); Sodium 133 mmol/L (137-145); Total Protein 6.5 g/dL (6.3-8.2)
[2020-11-07 07:25] VITALS: BP 133/72; PULSE 67; RESP 16; TEMP 36; O2SAT 98
[2020-11-07] MEDS: SPIRONOLACTONE 25 MG TABLET 200 MG PO (08:22)
[2020-11-07] MEDS: FUROSEMIDE 40 MG TABLET 80 MG PO ×2 (08:23→16:28)
[2020-11-07] MEDS: NYSTATIN POWDER 15GM 1 APPLIC TOP ×2 (08:23→20:56)
[2020-11-07] MEDS: ENOXAPARIN 40 MG/0.4 ML SYRINGE SUBCUT (08:23)
[2020-11-07] MEDS: predniSONE 20 MG TABLET 40 MG PO (08:23)
[2020-11-07] MEDS: SODIUM CHLORIDE 0.9% FLUSH 10 ML IV ×2 (08:24→20:56)
--- NOTE | 2020-11-07 09:38 | PT.IPTN ---
Current Diagnoses Cellulitis of right lower limb (11/04/20) Physical Therapy Treatment Note M2 PT-IP Current Condition Start: 11/04/20 10:43 Freq: NEEDED Status: Active Protocol: Document 11/04/20 14:14 AW (Rec: 11/04/20 15:24 AW [id number]) Physical Therapy Current Condition Current Condition Evaluation Date 11/04/20 Treatment Diagnosis RLE cellulitis; difficulty in walking Onset Date 11/02/20 M3 PT-IP Subjective Start: 11/04/20 10:43 Freq: NEEDED Status: Active Protocol: Document 11/07/20 09:13 SP (Rec: 11/07/20 12:05 SP [id number]) Subjective Physical Therapy Visit Type Type Treatment Note Visit Start Time 09:13 Visit Stop Time 09:38 Total Visit Minutes 25 Number of BOAT ENGINE MECHANIC Visits 1 Physical Therapy Visit Comments Patient Comments Pt willing to work with therapy. Therapy Pain Assessment Pain When Pain Assessed During Mobility Pain Present Pain Present Pain Reported Location Right Leg Intensity 3 Scale Used 0/10 at rest, 3/10 during mobility, brief 6-8/10 during WB RLE. Description With Movement Pain Behaviors Facial Grimacing Pain Management Techniques Re-positioning,Timing of Activity with Medications M4 PT-IP Mobility and Gait Start: 11/04/20 10:43 Freq: NEEDED Status: Active Protocol: Document 11/07/20 09:13 SP (Rec: 11/07/20 12:05 SP [id number]) PT-Bed Mobility Assessment Supine to Sit Supine to Sit Standby Assistance,Bedrails Sit to Supine Sit to Supine Contact Guard Assistance, Bedrails PT-Transfer Assessment Sit to and From Stand Sit to and from Stand Contact Guard Assistance,1 Person Assistance,Use of Upper Extremities Equipment Transfer Assistive Device Gait Belt,Front Wheeled Walker Orthotic/Prosthetic Devices or Brace: No Transfers Transfer Destination Bed,Chair Transfer Technique Stand Step Pivot Transfer Ability Level of Assist Standby Assistance,Contact Guard Assistance,Use of Upper Extremities Comments Mobility Comments Pt was reclined in chair with BLE cushioned by a pillow. Pt able to lower and raise recliner leg rests self, scoot forward/bacward in chair self, sit<> stand from chair usign BUE on chair arms and good reaching back slow descent into chair when sat SBA with no cuing. Pt used FWW to ambulated around room approx 30 ft CG initally then decreased to SBA with improved RLE WB with UE support on FWW and comment of increased brief pain during WB but goes away when shifts onto LLE. Pt returned to bed SPT usign FWW properly and hand placement slow descent SBA. Sit<> supine SBA using personal blanket to self support RLE onto bed then self RLE reposition with its strength but does report pain in R knee during flexion/ WB on bed 03/20. Reviewed LE ex: ankle pumps, heel slides, hip abd to improve strength and circulation with reminder to perform periodically during the day with verbal confirmation. Pt was able to complete return sitting at EOB with HOB flat CGA. Sit>stand, SPT bed > chair and good HP slow descent into chair and self recline. BOAT ENGINE MECHANIC replaced p illow under BLE for skin integrity support. Pt had call light and all needs in reach with alarm donned before left. Pt is improving in mobility this tx. Pt is hoping to return home with family to assist him with HHPT. Gait Assessment Gait Gait Assistance Required: Standby Assistance,Contact Guard Assist,1 Person Assist Distance (Feet) 30 Able to Maintain Weight Bearing Status Yes During Gait Assistive Devices Assistive Device Gait Belt,Front Wheeled Walker Orthotic/Prosthetic Devices or Brace: No Gait Deviations General Gait Pattern Antalgic,Decreased Stride Length,Decreased Feet Clearance,Flexed Trunk,Lateral Trunk Lean,Step-to Gait,Wide Based Gait Factors Limiting Gait Function Factors Limiting Gait Function Decreased Activity Tolerance, Decreased Sensation,Decreased Strength,Limited Range of Motion,Pain,Poor Balance Comments Gait Comments See mobility comments. Stair Climbing Assessment Comments Stair Climbing Comments Not assessed today, will assess tomorrow 2 PF steps using FWW to assimulate mobile home enterance. PT-Balance Assessment Sitting Balance and Reactions Static Sitting Balance Ability Good Dynamic Sitting Balance Ability Fair Standing Balance and Reactions Static Standing Balance Ability Good Dynamic Standing Balance Ability Fair Device Used FWW M5 PT-IP Objective Assessments Start: 11/04/20 10:43 Freq: NEEDED Status: Active Protocol: Document 11/04/20 14:14 AW (Rec: 11/04/20 15:24 AW [email or web address]) Orientation Orientation/Cognition Level of Alertness Alert Orientation Name,Month,Place,Situation Language Function Ability No Deficits Noted Safety Awareness Decreased Safety Awareness Memory Description Short Term Impaired Gross Range of Motion Lower Extremity ROM Assessment Bilaterally Impaired Strength Lower Extremity Strength Assessment Bilaterally Impaired Hip 3+/5 Knee 4/5 Ankle L 4/5; R 3-/5 Sensation Assessment Sensation Gross Sensation Right LE Impaired Light Touch Impaired Proprioception (Position) Impaired Sensation Description Numbness Muscle Tone Muscle Tone WNL Yes M6 PT-IP Treatment Start: 11/04/20 10:43 Freq: NEEDED Status: Active Protocol: Document 11/07/20 09:13 SP (Rec: 11/07/20 12:05 SP [id number]) Physical Therapy Treatment Exercises Exercises Ankle Pumps,Heel Slides,Supine Hip Abduction,Seated Knee Flexion/Extension Knee ROM Measurement 90 deg Other Treatments Other Treatment Performed Recommended having HYGIENE ASSISTANT assist him walking in room between therapy txs for circulation and LE strengthening with verbal confirmation. M7 PT-IP Assessment and Plan Start: 11/04/20 10:43 Freq: NEEDED Status: Active Protocol: Document 11/07/20 09:13 SP (Rec: 11/07/20 12:05 SP [id number]) PT Summary Assessment and Plan Potential Rehabilitation Potential Good Status of Condition at Evaluation Evolving Summary Impairments Pain,ROM,Strength,Balance, Sensation,Bed Mobility, Transfers,Gait,Activity Tolerance Progress Towards Goals Slow Progress due to Pain,Slow Progress due to Activity Tolerance Assessment Summary pt shows improved activity tolerance in standing with increased amb distance 30 ft but cont to be limited by significant R LE pain during WB RLE. Pt completed approx 30ft with FWW only and CG- SBA for mobility. Recommending return home with family to assist him and HHPT to improve his mobility and strength. Needs to complete 2 PF step trng before DC. Goals Bed Mobility Goal Independent Transfer Goal Independent,Front Wheeled Walker Gait Goal Independent,Front Wheel Walker Gait Distance 75 Other Goals - up/down single step with FWW SBA Days to Meet Goals 8 Frequency of Treatment Frequency Of Treatment Once a Day Treatment Plan Physical Therapy Treatment Plan Bed Mobility Training,Transfer Training,Gait Training, Therapeutic Exercise,Balance Retraining,Discharge Planning, Neuromuscular Re-ed Other Recommendations and Next Treatment RLE ex, gait further distance, Focus 2 PF steps w/ FWW to assimulate enterance to mob home. Recommendations To Nursing Amount of Assist Needed Standby Assistance,1 Person Assist Discharge Recommendations PT Discharge Recommendations Home with Assistance,Home Health Transportation Needs at Discharge Private Vehicle,Wheelchair/ Cabulance
[2020-11-07 09:51] LABS: Vancomycin Trough 21.5 ug/mL (10-20)
[2020-11-07] MEDS: CEFTRIAXONE 1 GM/50 ML FROZ.PIGGY IV (10:22)
[2020-11-07 11:30] VITALS: BP 136/66; PULSE 66; RESP 16; TEMP 36.1; O2SAT 99
--- NOTE | 2020-11-07 12:04 | PC.NURSE ---
Patient has been sitting up in the chair all morning, this seems to work better for him and his breathing. He is on RA and bs are cta. Lower extremities are swollen with 2+ edema, legs are rough feeling. R.knee pink and looking better. PPX2. Patient on iv antibiotics. IV Vanco trough high at 21.5, informed pharmacist. The medication has now been d/cd. He is resting and about to eat lunch.
--- NOTE | 2020-11-07 14:31 | P.PN_ITS ---
Subjective Subjective Date Patient Seen: 11/07/20 Time Patient Seen: 14:31 Interval history: This is a 65-year-old male with a past medical history of hep C cirrhosis and hypertension who presented with acute onset of right french redness, and right knee pain. His R knee is improving today. He was able to walk quite a bit further with PT today, stairs planned for tomorrow with probable discharge home if he does okay. Started on steroids for possible gout along wi th continued antibiotics for cellulitis, although cellulitis improved and will be changed to doxycycline today. He denies complaints of fever, chills, nausea, vomiting, chest or abdominal pain, shortness of breath today. Exam Vital Signs (past 8 hours): - 11/07/20 07:25 11/07/20 11:30 Temperature 96.8 F L 97.0 F L Pulse Rate 67 66 Respiratory Rate 16 16 Blood Pressure 133/72 136/66 Pulse Oximetry 98 99 Oxygen Delivery Method Room Air Oxygen Flow Rate 0 Narrative Exam Narrative: GENERAL APPEARANCE: Chronically ill-appearing male, obese with BMI of 38.4. sitting up in bedside chair. SKIN: Inspection of the skin reveals resolved erythema of his RLE, now non- tender as well, still mildly warm compared to the L. HEENT: Normocephalic atraumatic, extraocular muscles are intact, oropharynx is clear and mucous membranes are moist, neck is supple without adenopathy NECK: Supple and symmetric. There was no thyroid enlargement, and no tenderness, or masses were felt. LUNGS: Auscultation of the lungs revealed no wheezes, rhonchi, or rales. CARDIOVASCULAR: There was a regular rate and rhythm without any murmurs, gallops, rubs. Peripheral pulses were 2+ and symmetric. ABDOMEN: Soft obese abdomen, nontender, non-distended. MUSCULOSKELETAL: There was improved RLE tenderness, now localized to small portions around, but not in his R knee. No gross effusion to R knee. Difficult to assess given anasarca. EXTREMITIES: No cyanosis, clubbing. Anasarca with 2+ edema bilateral lower extemity. NEUROLOGIC: Alert and oriented x 3. Somewhat depressed affect but seemingly more upbeat today. No focal neurological deficits. Gait was not assessed. Objective Labs Result Diagrams: 11/07/20 06:02 11/07/20 06:02 Labs: Laboratory Results - last 24 hr 11/07/20 11/07/20 11/07/20 06:02 06:02 08:30 WBC 10.9 RBC 2.93 L Hgb 9.8 L Hct 29.0 L MCV 98.9 MCH 33.3 MCHC 33.7 RDW 15.5 H Plt Count 74 L Neut % (Auto) 86.9 H Lymph % (Auto) 3.6 L [place] % (Auto) 7.9 Eos % (Auto) 1.4 L Baso % (Auto) 0.2 Neut # (Auto) 9500 H Lymph # (Auto) 400 L [place] # (Auto) 900 Eos # (Auto) 200 Baso # (Auto) 0 Sodium 133 L Potassium 4.0 Chloride 102 Carbon Dioxide 28 BUN 44 H Creatinine 1.32 H Estimated GFR 54.8 L BUN/Creatinine Ratio 33.3 H Glucose 157 H Calcium 8.3 L Magnesium 1.8 Total Bilirubin 1.6 H Conjugated Bilirubin 0.0 Unconjugated Bilirubin 1.3 H AST 79 H ALT 56 H Alkaline Phosphatase 144 H Total Protein 6.5 Albumin 2.5 L Globulin 4.0 Albumin/Globulin Ratio 0.6 L Vancomycin Trough 21.5 H* [facility] Medical History Anasarca Ascites Asthma Elevated brain natriuretic peptide (BNP) level Hepatitis C Hypertension Liver cancer Liver cirrhosis Surgical History History of surgery of liver Family History Father Trauma Mother Sjogrens syndrome Sister No significant medical problems Social History household members: spouse Smoking Status: Former smoker alcohol intake: former Assessment & Plan Assessment & Plan narrative: This is a 65-year-old male with a past medical history of hep C cirrhosis and hypertension who presented with acute onset of right french redness, and right knee pain. He is admitted for right lower extremity skin and soft tissue infection / cellulitis and presumed gout. 1. Right Leg skin and soft tissue infection / Cellulitis, present on admission. Active -mild redness of the french but significant right swelling/warmth/tenderness without redness of the knee on admission. Now improved with antibiotic therapy. -WBC 15.2 on admission, has been stable around this value since but also started on steroids. Now finally improved to normal today. -Started Vancomycin per pharmacy, added ceftriaxone for non-MRSA coverage of skin and soft tissue. Will switch to oral doxycycline tonight. 2. Right knee inflammatory swelling, present on admission. Active -the right knee exam on admission suggested acute gout vs septic joint. Dr. Jin consulted and did not aspirate, low likelihood of septic joint. There is no effusion on knee imaging. Differential does include known cellulitis. -Uric Acid level unremarkable at 5.4. -started prednisone for probable gout flare with slow improvement. Will continue prednisone 40 mg. Plan for discharge on steroid taper. -RLE US negative for DVT. -MSSA on 10/14 blood culture bottles from admission, presumed contaminant. 3. Anemia, present on admission. Active -Hgb 10.3 on 11/03. Previous recorded hgb of 9.6 on 04/17/20. Repeat 11/04 at 9.3 and has been stable between 9-10. No need for further trending. 4. Anasarca, present on admission. Active -secondary to hepatitis C cirrhosis -Continue Spironolactone and Lasix 5. Protein Calorie Malnutrition, likely chronic, present on admission. Active -consultation to dust box worker 6. Medical Obesity, present on admission. Chronic. -he appears over nourished and also has a significant anasarca contribution 7. Chronic Kidney Disease Stage 3, present on admission. Chronic. -Creat 1.39 with GFR of 51.6 on 11/03 and has been stable during admission thus far. -Baseline from 04/29 of Creat 1.37 and GFR 52 8. Hepatitis-C Cirrhosis with Elevated INR, present on admission. Chronic 9. Possible staph bacteremia - blood cultures 10/14 positive for MSSA, highly suspect contaminant at this time. Repeated blood cultures which have no growth. Dispo: inpatient status, will need to see how well he is ambulating with stairs tomorrow. Anticipate discharge tomorrow to home with home health. Continue P T/OT. Code: Full DVT: Lovenox held given thrombocytopenia.
[2020-11-07 16:06] VITALS: BP 120/66; PULSE 69; RESP 18; TEMP 36.3; O2SAT 97
[2020-11-07 20:29] VITALS: BP 132/65; PULSE 71; RESP 20; TEMP 37; O2SAT 98
[2020-11-07] MEDS: DOXYCYCLINE HYCLATE 100 MG TABLET PO (20:56)
[2020-11-07 23:35] VITALS: BP 123/64; PULSE 65; RESP 16; TEMP 36.9; O2SAT 97
[2020-11-08 03:23] VITALS: BP 123/63; PULSE 63; RESP 16; TEMP 36.7; O2SAT 98
[2020-11-08] MEDS: OXYCODONE IR 10 MG TABLET PO ×2 (06:09→10:45)
[2020-11-08] MEDS: PANTOPRAZOLE 40 MG TABLET PO (06:09)
[2020-11-08 06:30] LABS: BUN Creatinine Ratio 32.8 (6-22); Blood Urea Nitrogen 43 mg/dL (9-20); Calcium 8.5 mg/dL (8.4-10.2); Carbon Dioxide 32 mmol/L (22-32); Chloride 101 mmol/L (98-107); Estimated Glomerular Filt Rate 55.3 mL/min (>60); Glucose 143 mg/dL (80-110); HEMOLYSIS < 15 (0-50); Magnesium 1.8 mg/dL (1.6-2.3); Potassium 3.9 mmol/L (3.4-5.1); Sodium 134 mmol/L (137-145)
[2020-11-08 08:11] VITALS: BP 143/76; PULSE 63; RESP 18; TEMP 36.3; O2SAT 96
[2020-11-08] MEDS: predniSONE 20 MG TABLET 40 MG PO (08:22)
[2020-11-08] MEDS: SPIRONOLACTONE 25 MG TABLET 200 MG PO (08:22)
[2020-11-08] MEDS: FUROSEMIDE 40 MG TABLET 80 MG PO (08:22)
[2020-11-08] MEDS: DOXYCYCLINE HYCLATE 100 MG TABLET PO (08:22)
[2020-11-08] MEDS: NYSTATIN POWDER 15GM 1 APPLIC TOP (08:22)
[2020-11-08] MEDS: SODIUM CHLORIDE 0.9% FLUSH 10 ML IV (08:22)
--- NOTE | 2020-11-08 11:00 | PT.IPTN ---
Current Diagnoses Cellulitis of right lower limb (11/04/20) Physical Therapy Treatment Note M2 PT-IP Current Condition Start: 11/04/20 10:43 Freq: NEEDED Status: Active Protocol: Document 11/04/20 14:14 AW (Rec: 11/04/20 15:24 AW [id number]) Physical Therapy Current Condition Current Condition Evaluation Date 11/04/20 Treatment Diagnosis RLE cellulitis; difficulty in walking Onset Date 11/02/20 M3 PT-IP Subjective Start: 11/04/20 10:43 Freq: NEEDED Status: Active Protocol: Document 11/08/20 11:00 AB (Rec: 11/08/20 12:01 AB [id number]) Subjective Physical Therapy Visit Type Type Treatment Note Visit Start Time 11:00 Visit Stop Time 11:25 Total Visit Minutes 25 Number of BU[employer]ER [employer] Visits 0 Physical Therapy Visit Comments Patient Comments pt is agreeable to do PT Therapy Pain Assessment Pain When Pain Assessed At Rest Pain Present Pain Present Pain Reported Location Bilateral Knee Scale Used pain scale not state M4 PT-IP Mobility and Gait Start: 11/04/20 10:43 Freq: NEEDED Status: Active Protocol: Document 11/08/20 11:00 AB (Rec: 11/08/20 12:01 AB [id number]) PT-Transfer Assessment Sit to and From Stand Sit to and from Stand Standby Assistance Equipment Transfer Assistive Device Gait Belt,Front Wheeled Walker Orthotic/Prosthetic Devices or Brace: No Comments Mobility Comments completed sit to stand SBA and ambulated ~ 20 ft using FWW SBA. completed up/down platform step x 2 sets using FWW CGA. pt ambulated in room using FWW 20 ft SBA. sat back on chair and positioned. call light and table placed within reach. Gait Assessment Gait Gait Assistance Required: Standby Assistance Distance (Feet) 20 Able to Maintain Weight Bearing Status Yes During Gait Assistive Devices Assistive Device Gait Belt,Front Wheeled Walker Orthotic/Prosthetic Devices or Brace: No Gait Deviations General Gait Pattern Antalgic,Decreased Stride Length,Decreased Feet Clearance,Lateral Trunk Lean, Step-to Gait,Wide Based Gait Factors Limiting Gait Function Factors Limiting Gait Function Decreased Activity Tolerance, Decreased Strength,Limited Range of Motion,Pain,Poor Balance Stair Climbing Assessment Evaluation Level of Assist On Stairs Contact Guard Assistance,1 Person Assistance Devices Stair Climbing Assistive Devices Front Wheel Walker Technique/Endurance Stair Climbing Direction Ascend and Descend Stair Climbing Technique Step to Step Number of Steps Climbed 1 Stair Climbing Set # Repetitions (reps) 2 M5 PT-IP Objective Assessments Start: 11/04/20 10:43 Freq: NEEDED Status: Active Protocol: Document 11/04/20 14:14 AW (Rec: 11/04/20 15:24 AW [id number]) Orientation Orientation/Cognition Level of Alertness Alert Orientation Name,Month,Place,Situation Language Function Ability No Deficits Noted Safety Awareness Decreased Safety Awareness Memory Description Short Term Impaired Gross Range of Motion Lower Extremity ROM Assessment Bilaterally Impaired Strength Lower Extremity Strength Assessment Bilaterally Impaired Hip 3+/5 Knee 4/5 Ankle L 4/5; R 3-/5 Sensation Assessment Sensation Gross Sensation Right LE Impaired Light Touch Impaired Proprioception (Position) Impaired Sensation Description Numbness Muscle Tone Muscle Tone WNL Yes M6 PT-IP Treatment Start: 11/04/20 10:43 Freq: NEEDED Status: Active Protocol: Document 11/08/20 11:00 AB (Rec: 11/08/20 12:01 AB [id number]) Physical Therapy Treatment Education Education Provided Safety M7 PT-IP Assessment and Plan Start: 11/04/20 10:43 Freq: NEEDED Status: Active Protocol: Document 11/08/20 11:00 AB (Rec: 11/08/20 12:01 AB [id number]) PT Summary Assessment and Plan Potential Rehabilitation Potential Good Summary Impairments Pain,ROM,Strength,Balance, Coordination,Sensation, Cognition,Bed Mobility, Transfers,Gait,Activity Tolerance Progress Towards Goals Progressing Toward Goals Assessment Summary pt requiring SBA to CGA with mobility using FWW and will have his spouse to assist him at home. pt may go home when medically stable. Goals Bed Mobility Goal Independent Transfer Goal Independent,Front Wheeled Walker Gait Goal Independent,Front Wheel Walker Gait Distance 75 Other Goals up/down single step with FWW SBA Days to Meet Goals 8 Frequency of Treatment Frequency Of Treatment Once a Day Treatment Plan Physical Therapy Treatment Plan Bed Mobility Training,Transfer Training,Gait Training, Therapeutic Exercise,Balance Retraining,Discharge Planning, Neuromuscular Re-ed Recommendations To Nursing Amount of Assist Needed 1 Person Assist Discharge Recommendations PT Discharge Recommendations Home with Assistance,Home Health Other Discharge Recommendations home with assist and
[2020-11-08 12:01] VITALS: BP 132/64; PULSE 66; RESP 16; TEMP 36.6; O2SAT 95
--- NOTE | 2020-11-08 12:39 | PC.NURSE ---
SHIFT NOTE: DECLINED SHOWER. PREFERS TO SHOWER AT HOME. AT BEDSIDE. PHYSICAL THERAPY HAS ASSESSED PATIENT, CLEARED FOR HOME. MD NOTIFIED.
--- NOTE | 2020-11-08 13:22 | P.DS_ITS ---
History of Present Illness History of Present Illness Date Patient Seen: 11/08/20 Time Patient Seen: 13:22 Chief complaint: right knee pain Narrative: Per Dr. Dixon, This is a 65-year-old male who is chronically ill with Hepatitis C Cir rhosis/Anasarca who presents to the emergency department this evening with 2 days of acute worsening right knee pain along with progressive redness of the right anterior french area. He appears to have gout versus a septic right knee joint in addition to possible cellulitis of the anterior french. His main complaint is right knee pain. He has no history of gout. He was admitted about 7 months ago with a similar right leg cellulitis. He has had no fevers, chills or radiation of the pain. He describes weeping fluid from the swollen patch on the right anterior french, which is not evident on exam. He has relatively stable chronic anemia, chronic kidney disease stage 3, elevated liver enzymes and INR. He says that he stopped his Lasix 2 days ago because it was too painful to get up to urinate. Orthopedics will consult in the morning for consideration of knee joint aspiration. Discharge Providers Provider Date of admission: 11/04/20 09:35 Discharge Date: 11/08/20 Primary care physician: Pancho Payan MD Consults: 11/03/20 19:04 Consult to Orthopedic Surgery Routine Comment: Consulting Provider: Frances Jin Reason for consultation: Right knee Pain Has provider been notified: Yes 11/03/20 19:40 Consult to Dietitian, Adult Routine Comment: recent weight loss Reason For Exam: morbid obesity 11/04/20 09:31 Consult to Physical Therapy Evaluate & Treat Comment: Physician Instructions: Evaluate and Treat Discharge provider: Wero Bolaños DO Summary Hospital Course Discharge Diagnosis: Please see hospital course by problem list noted below Hospital Course: This is a 65-year-old male with a past medical history of hep C cirrhosis and hypertension who presented with acute onset of right french redness, and right knee pain. He is admitted for right lower extremity skin and soft tissue infection / cellulitis and presumed gout. Improved with antibiotics and steroids and discharged home with home health. 1. Right Leg skin and soft tissue infection / Cellulitis, present on admission. Active -mild redness of the french but significant right swelling/warmth/tenderness without redness of the knee on admission. Now improved with antibiotic and steroid therapy. -WBC 15.2 on admission, has been stable around this value since but also started on steroids. Finally improved to normal today. -Started Vancomycin per pharmacy, added ceftriaxone for non-MRSA coverage of skin and soft tissue then transitioned to oral doxycycline. To complete another 5 days at home for 10 day total course for cellulitis. -PT/OT consulted with continued improvement in ambulation, discharged home with home health once he was able to adequately maneuver stairs with PT. 2. Right knee inflammatory swelling, present on admission. Active -the right knee exam on admission suggested acute gout vs septic joint. Dr. Jin consulted and did not aspirate, low likelihood of septic joint. There is no effusion on knee imaging. Differential does include known cellulitis. -Uric Acid level unremarkable at 5.4. -started prednisone for probable gout flare with slow improvement. Continued prednisone 40 mg during admission with improvement in R knee pain over 2-3 days. Discharge on prednisone taper over 8 days. -RLE US negative for DVT. -MSSA on 10/14 blood culture bottles from admission, presumed contaminant. 3. Anemia, present on admission. Active -Hgb 10.3 on 11/03. Previous recorded hgb of 9.6 on 04/17/20. Repeat 11/04 at 9.3 and has been stable between 9-10. No need for further trending. 4. Anasarca, present on admission. Active -secondary to hepatitis C cirrhosis -Continue Spironolactone and Lasix 5. Protein Calorie Malnutrition ruled out -appreciate dietary consultation and recommendations. 6. Medical Obesity, present on admission. Chronic. - contributing toward worsening functional status, contributes to risk of cellulitis and LE edema as well. Appreciate dietary consultation. 7. Chronic Kidney Disease Stage 3, present on admission. Chronic. -Creat 1.39 with GFR of 51.6 on 11/03 and has been stable during admission thus far. -Baseline from 04/29 of Creat 1.37 and GFR 52 8. Hepatitis-C Cirrhosis with Elevated INR, present on admission. Chronic - no medication changes are recommended. 9. Possible staph bacteremia, likely contaminant. - blood cultures 10/14 positive for MSSA, highly suspect contaminant at this time. Repeated blood cultures have no growth. . Status at Discharge Cognitive/behavioral status at discharge: oriented Functional status at discharge: uses cane/walker Overall status at discharge: patient is progressing back to baseline Time Spent with Patient Time spent: Greater than 30 minutes Exam Vital Signs (past 8 hours): - 11/08/20 08:11 11/08/20 12:01 Temperature 97.3 F L 97.8 F Pulse Rate 63 66 Respiratory Rate 18 16 Blood Pressure 143/76 H 132/64 Pulse Oximetry 96 95 Oxygen Delivery Method Room Air Oxygen Flow Rate 0 Narrative Exam Narrative: GENERAL APPEARANCE: Chronically ill-appearing male, obese with BMI of 38.4. sitting up in bedside chair. SKIN: Inspection of the skin reveals resolved erythema of his RLE, now non- tender as well, still mildly warm compared to the L. HEENT: Normocephalic atraumatic, extraocular muscles are intact, oropharynx is clear and mucous membranes are moist, neck is supple without adenopathy NECK: Supple and symmetric. There was no thyroid enlargement, and no tenderness, or masses were felt. LUNGS: Auscultation of the lungs revealed no wheezes, rhonchi, or rales. CARDIOVASCULAR: There was a regular rate and rhythm without any murmurs, ga llops, rubs. Peripheral pulses were 2+ and symmetric. ABDOMEN: Soft obese abdomen, nontender, non-distended. MUSCULOSKELETAL: There was now no RLE tenderness. No gross effusion to R knee. Difficult to assess given anasarca. EXTREMITIES: No cyanosis, clubbing. Anasarca with 2+ edema bilateral lower e xtemity. NEUROLOGIC: Alert and oriented x 3. Normal affect. No focal neurological deficits. Gait was not assessed. Objective Labs Result Diagrams: 11/07/20 06:02 11/08/20 05:53 Labs: Laboratory Results - last 24 hr 11/08/20 05:53 Sodium 134 L Potassium 3.9 Chloride 101 Carbon Dioxide 32 BUN 43 H Creatinine 1.31 H Estimated GFR 55.3 L BUN/Creatinine Ratio 32.8 H Glucose 143 H Calcium 8.5 Magnesium 1.8 PFSH Medical History Anasarca Ascites Asthma Elevated brain natriuretic peptide (BNP) level Hepatitis C Hypertension Liver cancer Liver cirrhosis Surgical History History of surgery of liver Family History Father Trauma Mother Sjogrens syndrome Sister No significant medical problems Social History household members: spouse Smoking Status: Former smoker alcohol intake: former Discharge Plan Discharge Plan Patient Disposition: Home Provider Discharge Comment: You were admitted to the hospital with a cellulitis and gout of your R knee. Improved with antibiotics and steroids. Please follow up with your primary care provider next week if possible to check on your symptoms. Continue antibiotics for an additional 5 days and continue steroid taper until completed. Discharge orders & Medications Prescriptions: New doxycycline hyclate 100 mg Tablet 100 mg PO BID 5 Days Qty: 10 RF: 0 prednisone 20 mg tablet See Rx Instructions .ROUTE .COMPLEX Qty: 20 RF: 0 oxycodone 5 mg tablet 5 mg PO Q8H PRN (Reason: pain) 7 Days Qty: 15 RF: 0 Continued albuterol sulfate 90 mcg/actuation aerosol powdr breath activated 2 inhalation INHALATION Q4-6H PRN (Reason: shortness of breath or wheezing) Qty: 1 RF: 6 spironolactone 50 mg tablet 200 mg PO DAILY RF: 0 furosemide 20 mg tablet 80 mg PO BID Qty: 0 RF: 0 oxycodone 5 mg tablet 5 mg PO Q6H PRN (Reason: pain) Qty: 14 RF: 0 Discontinued cephalexin [Keflex] 500 mg capsule 500 mg PO BID Qty: 12 RF: 0 Follow up/Referrals: Pancho Payan MD [Primary Care Provider] - Diet/Activity/Treatments Diet: Diet as Tolerated Activity: As tolerated Visit Report/Discharge Packet Instructions: DI for Cellulitis -- Adult, DI for Cirrhosis, DI for Gout, How to Prevent Falls, DI for Peripheral Edema -- Bilateral Discharge Data Primary Care Provider: Pancho Payan
--- NOTE | 2020-11-08 14:13 | PC.NURSE ---
Day shift note: Patient discharge home per MD order with [facility]. Discussed importance of F/U with PMD in one week, s/sx of infections, new medications including antibiotic adherence, and home safety. Both patient and verbalized understanding of instructions. Home via private vehicle accompanied by .
--- NOTE | 2020-11-08 15:31 | CM.DPNOTE ---
Faxed face to face, order, FS, clinicals to [facility] per Manisha. Scanned face to face to EMR. Received fax confirmation. Ban Smith CM Asst.
--- NOTE | 2020-11-08 16:08 | CM.DPNOTE ---
DC [facility] w/partner and [facility] per patient and S.O.'s request. faxed referral, completed and signed F2F and HH order. Alerted Cassie at [facility] re referral and DC Plan: DC home w/supportive family and [facility] JW
== END 2020-11-08 14:16 | disposition home or self-care (01) | DRG 603 ==
LOC: ED 17:46 → AC 17:47
PROVIDERS: Internal Medicine; Admitting Provider Family Medicine; Emergency Provider Emergency Medicine; PCP Internal Medicine; Referring Provider Emergency Medicine; Visit Provider Family Medicine
DX: L03.115 Cellulitis of right lower limb (principal); B18.2 Chronic viral hepatitis C; K74.69 Other cirrhosis of liver; R60.1 Generalized edema; I12.9 Hypertensive chronic kidney disease with stage 1 through stage 4 chronic kidney disease, or unspecified chronic kidney disease; N18.30 Chronic kidney disease, stage 3 unspecified; M25.461 Effusion, right knee; Z68.38 Body mass index [BMI] 38.0-38.9, adult; E66.9 Obesity, unspecified; M10.9 Gout, unspecified; D64.9 Anemia, unspecified; Z20.822 Contact with and (suspected) exposure to COVID-19
CPT/HCPCS: 36415; 73560; 80048; 80053; 80076; 80202; 83605; 83735; 83880; 84145; 84550; 85007; 85025; 85610; 85730; 87040; 87150; 87186; 87205; 87635; 90471; 90656; 93005; 93971; 96374; 96375; 97110; 97116; 97162; 97530; 99284; C9803; G0378; J1650; J1940; J2270; Q2038

== ENCOUNTER 2020-11-22 10:03 | Inpatient (IN) | payer MEDICARE, MEDICAID, SELFPAY ==
[2020-11-03 18:35] VITALS: BMI 38.3
[2020-11-22] VITALS (18 sets, daily range): BP systolic 123–167; BP diastolic 58–87; PULSE 73–88; RESP 12–24; TEMP 36.3–36.9; O2SAT 93–100; BMI 37.3
--- NOTE | 2020-11-22 | PATH_ITS ---
Note [facility] Accession Number: [id number] TESTS RESULT FLAG UNITS REF RANGE LAB Clinician Provided Cytology Information No. of containers..01 Other (Miscellaneous) 01 ABDOMINAL FLUID DIAGNOSIS: 02 ABDOMINAL FLUID INCONCLUSIVE. SEE COMMENT. REACTIVE MESOTHELIAL CELLS ARE PRESENT. THIS INTERPRETATION INCLUDES EVALUATION OF A CELL BLOCK. COMMENT: A cytology preperation and a cell block are of predominantly bland small epitheliod cells, singly and in tight clusters. To further evaluate the cells, a panel of immunohistohemical stains* are performed (each with an appropriately positive control). The epitheliod cells are positive for AILEEN, cytokeratin 7, WT-1 and calretinin immunoreactivity, consistent with mesothelial origin. The cells are negative for cytokeratin 20 and MOC-31, arguing against adenocarcinoma, and are negative for markers of specific differentiation, including lung (TTF-1 and napsin) and prostate (PSA). Additionally, there is no intracellular mucin seen on a mucicarmine stain (a control shows appropriate activity). The overall features are most consistent with reactive mesothelial cells. That said, given the prominence of these cells, an atypical mesothelial proliferation cannot be excluded, and correation with clinical and imaging findings is recommended. If ascites reaccumulates, repeat cytology may be contributory, if clinically indicated. As part of routine microbiology quality control technician, Dr. Cardenas has reviwed this case and agrees with the interpretation above. * This test was developed and its performance characteristics determined by [employer]. It has not been cleared or approved by the U.S. Food and Drug Administration. The FDA has determined that such clearance or approval is not necessary. This test is used for clinical purposes. It should not be regarded as investigational or for research. Pathologist ICD10: 02 R18.8 02 Johann Almaguer MD, PhD, Pathologist NPI- [id number] Cesar Gipson, Plastic Surgery Manager ([facility]) 01 80 CC, YELLOW, CLEAR RECEIVED: FRESH IN ORANGE CAP CONTAINER. /[facility] 11/25/2020 1042 Local FLAG LEGEND: L-Low Normal,H-High Normal,LL-Alert Low,HH-Alert High <-Panic Low,>-Panic High,A-Abnormal,AA-Critical Abnormal Performed at: 01 =Z [facility] [address] [place] [address] [address] [facility], [place] [address] Amado Escudero MD, 02 LWA [facility] [address] [address] Irene River MD, Specimen Comment: A courtesy copy of this report has been sent to [phone] Performed at: 01 [facility] [address], [place], [place] [id number] MD Amado Escudero MD Phone: [phone]
--- NOTE | 2020-11-22 10:13 | DI.RAD.S_ITS ---
PROCEDURE: XR CHEST 1V INDICATIONS: fatigue, confusion, cough with hemoptysis TECHNIQUE: One view of the chest was acquired. COMPARISON: [facility], CR, XR RIBS LT MIN 3V W CXR1V, 08/21/2020, 9:53. FINDINGS: Surgical changes and devices: Surgical clips in the right upper quadrant. Lungs and pleura: Chronic right hemidiaphragm elevation. Lungs are clear. No pleural effusions or pneumothorax. Mediastinum: Mediastinal contours appear normal. Heart size is normal. Prominent right hilum and AP window. Bones and chest wall: No suspicious bony lesions. Overlying soft tissues appear unremarkable. IMPRESSION: 1. No acute cardiopulmonary disease. 2. Prominent right hilum and AP window. Cannot rule out lymphadenopathy. Recommend CT with contrast for further evaluation. Dictated by: Nathaniel Walker M.D. on 11/22/2020 at 10:31 Approved by: Nathaniel Walker M.D. on 11/22/2020 at 10:35
--- NOTE | 2020-11-22 10:15 | ED.WEAKNESS ---
HPI - Weakness General Chief complaint: Weakness Stated complaint: cold,confusion,coughing blood Time Seen by Provider: 11/22/20 10:04 Source: patient and family Mode of arrival: Wheelchair Limitations: no limitations History of Present Illness HPI Narrative: 65-year-old male former smoker with extensive medical history including hepatitis-C, alcoholic cirrhosis, liver cancer, hypertension, gout presents with family in the chief complaint of 4 days of increasing generalized weakness, confusion, cough with occasional hemoptysis. He has had no headache, blurred vision or trouble with speech. He denies any chest pain or shortness of breath. He denies any abdominal pain. He denies any nausea or vomiting but family states he vomited multiple times yesterday. He has had no blood in his emesis. He has had no change in bowel habits such as constipation or diarrhea. He was admitted not too long ago for R leg / knee cellulitis, anemia, and anasarca on 11/05 and discharged on 11/08. He's had no falls or injuries. He denies focal findings such as blurred vision, trouble with speech, or focal weakness. He and family do state that his legs are doing much better and his pain is rather well controlled. MD Complaint: generalized weakness Onset (ago): day(s) Duration: constant Location: generalized Severity: moderate Relieving factors: none Exacerbating factors: none Context: recent illness Related Data Home Medications Medication Instructions Recorded Confirmed spironolactone 200 mg PO DAILY 04/15/20 11/04/20 Previous Rx's Medication Instructions Recorded albuterol sulfate 90 mcg/actuation 2 inhalation INHALATION Q4-6H PRN 01/23/20 breath activated powder inhaler #1 each furosemide 80 mg PO BID #0 tab 04/17/20 oxycodone 5 mg PO Q6H PRN #14 tab 08/21/20 Allergies Allergy/AdvReac Type Severity Reaction Status Date / Time No Known Drug Allergies Allergy Verified 11/22/20 10:26 Review of Systems Constitutional Constitutional: Reports chills, Reports fatigue, Denies fever(s), Denies frequent falls, Reports lethargy and Reports weakness Eyes Eyes: Denies change in vision, Denies eye discharge, Denies irritation and Denies loss of vision ENT Ears, Nose, Mouth, and Throat: Denies change in voice, Denies dizziness, Denies neck pain, Denies sore throat and Denies throat swelling Cardiovascular Cardiovascular: Denies chest pain, Denies irregular heart rhythm, Denies lightheadedness, Denies palpitations, Denies dyspnea, Denies dyspnea on exertion and Denies orthopnea Respiratory Respiratory: Reports cough, Reports hemoptysis, Denies dyspnea, Denies dyspnea on exertion and Denies wheezing Gastrointestinal Gastrointestinal: Denies abdominal pain, Denies change in bowel habits, Denies diarrhea, Reports nausea and Reports vomiting Musculoskeletal Musculoskeletal: Denies neck pain and Denies numbness Integumentary/Breasts Skin/Breast: Denies pruritus, Denies erythema, Denies rash and Denies wounds Neurologic Neurologic: Denies behavioral changes, Denies confusion, Denies dizziness, Denies frequent falls, Denies loss of vision, Denies numbness and Reports weakness Psychiatric Psychiatric: Denies anxiety, Denies behavioral changes, Denies confusion, Denies depression, Denies homicidal ideation and Denies suicidal ideation Endocrine Endocrine: Reports fatigue, Denies flushing and Denies palpitations Hematologic/Lymphatic Hematologic/Lymphatic: Denies easy bruising Allergic/Immunologic Allergic/Immunologic: Denies urticaria, Denies throat swelling and Denies wheezing Patient History Medical History (Updated 11/22/20 @ 12:20 by Arnulfo Bird DO) Anasarca Ascites Asthma Elevated brain natriuretic peptide (BNP) level Hepatitis C Hypertension Liver cancer Liver cirrhosis Surgical History History of surgery of liver Family History Father Trauma Mother Sjogrens syndrome Sister No significant medical problems Social History household members: spouse Smoking Status: Former smoker alcohol intake: former Smoking Status: Former smoker alcohol intake frequency: 0-2 drinks per day Substance Use Type: marijuana Exam Narrative Exam Narrative: GENERAL: [65] year old patient appears older than stated age. Chronically ill, no obvious significant acute distress. Able to get from wheelchair to the cart without assistance HEAD: Atraumatic. Normocephalic. EYES: Pupils equal round and reactive. Extraocular motions intact.No injection or drainage. ENT: Nose without bleeding, purulent drainage. Throat without erythema, tonsillar hypertrophy or exudate. Airway patent. Poor dentition NECK: Trachea midline. Non tender CARDIOVASCULAR: Regular rate and rhythm without murmurs, gallops, or rubs. RESPIRATORY: Decreased lung sounds bilaterally with prolonged expiratory phase. Faint crackles in bilateral bases GASTROINTESTINAL: Abdomen soft, non-tender, nondistended. EXTREMITIES: Bilateral lower extremity edema with chronic venous stasis BACK: Nontender without deformity or crepitance. No flank tenderness. NEURO: AOx3. SKIN: No rash or erythema of visible areas Initial Vital Signs Initial Vital Signs: Vital Signs Temperature 98.4 F 11/22/20 10:03 Pulse Rate 87 11/22/20 10:03 Respiratory Rate 24 11/22/20 10:03 Blood Pressure 167/78 H 11/22/20 10:03 Pulse Oximetry 98 11/22/20 10:03 Course Course Course Narrative: MELD Score (Model For End-Stage Liver Disease) (12 and older) from [employer] on 11/22/2020 All calculations should be rechecked by clinician prior to use RESULT SUMMARY: 27 points MELD Score (2016)* 19.6% Estimated 3-Month Mortality INPUTS: Dialysis at least twice in the past week ?> 0 = No Creatinine ?> 1.44 mg/dL Bilirubin ?> 6.2 mg/dL INR ?> 1.5 Sodium ?> 128 mEq/L Orders Ordered: ED Orders 11/22/20 10:13 XR chest 1V Stat 11/22/20 10:14 EKG-12 Lead Stat 11/22/20 10:20 Ammonia (NH3) Stat C-Reactive Protein Quant Stat Complete Blood Count AUTO DIFF Stat Comprehensive Metabolic Panel Stat Ferritin Stat Lactate (Lactic Acid) Stat Lactate Dehydrogenase Stat Lipase Stat Magnesium Stat NT-proBNP (BNP-Adult 18+) Stat Partial Thromboplastin Time Stat Prothrombin Time INR Stat Troponin & CK Cardiac Panel Stat 11/22/20 10:30 Blood Culture Stat COVID19 Stat 11/22/20 10:51 CT angio chest PE protocol Stat 11/22/20 11:10 CT head/brain wo con Stat 11/22/20 11:21 CT abdomen pelvis w con Stat 11/22/20 12:00 D Dimer Stat Discontinued Medications Sodium Chloride (Normal Saline 0.9%) 500 mls @ 1,000 mls/hr IV BOLUS ONE Stop: 11/22/20 11:20 Last Infusion: 11/22/20 12:08 Dose: 0 mls/hr Documented by: Admin: 11/22/20 11:06 Dose: 1,000 mls/hr Documented by: JOVON Lactulose (Lactulose 20 Gm/30 Ml Solution) 20 gm PO NOW ONE Stop: 11/22/20 10:55 Last Admin: 11/22/20 12:03 Dose: 20 gm Documented by: JOVON Vital Signs Vital signs: Vital Signs - 8 hr 11/22/20 10:03 11/22/20 10:09 11/22/20 10:15 Temperature 98.4 F Pulse Rate 87 88 85 Respiratory Rate 24 23 Blood Pressure 167/78 H Pulse Oximetry 98 99 99 11/22/20 10:30 11/22/20 10:32 11/22/20 10:45 Temperature Pulse Rate 79 79 79 Respiratory Rate 18 20 13 Blood Pressure 132/59 L 123/58 L Pulse Oximetry 98 100 95 11/22/20 11:00 11/22/20 11:15 11/22/20 11:39 Temperature Pulse Rate 85 80 79 Respiratory Rate 15 13 Blood Pressure 125/58 L 155/72 H 149/70 H Pulse Oximetry 94 97 100 11/22/20 11:45 11/22/20 12:00 11/22/20 12:15 Temperature 98.2 F Pulse Rate 79 81 80 Respiratory Rate 15 19 15 Blood Pressure 145/70 H 133/63 154/72 H Pulse Oximetry 95 95 MDM - Weakness Lab Data Result diagrams: 11/22/20 10:20 11/22/20 10:20 Labs: Lab Results 11/22/20 11/22/20 11/22/20 Range/Units 10:20 10:20 10:20 WBC 6.0 (4.5-11.0) X10^3/uL RBC 3.03 L (4.5-5.9) X10^6/uL Hgb 10.3 L (13.5-17.5) g/dL Hct 30.5 L (41-53) % MCV 100.6 H (80-100) fL MCH 34.0 (26-34) PG MCHC 33.8 (30-36) % RDW 17.0 H (11.6-14.8) % Plt Count 44 L (150-400) X10^3/uL Neut % (Auto) 78.4 H (50-75) % Lymph % (Auto) 5.5 L (25-40) % Real % (Auto) 13.1 (3-14) % Eos % (Auto) 2.7 (2-4) % Baso % (Auto) 0.3 (0-2) % Neut # (Auto) 4700 (5496-7269) /uL Lymph # (Auto) 300 L (2638-2627) /uL Real # (Auto) 800 (0-900) /uL Eos # (Auto) 200 (0-450) /uL Baso # (Auto) 0 (0-100) /uL PT (10.1-12.7) SECONDS INR (0.9-1.3) APTT (26.4-36.2) SECONDS D-Dimer (<230) ng/mL Sodium (137-145) mmol/L Potassium (3.4-5.1) mmol/L Chloride (98-107) mmol/L Carbon Dioxide (22-32) mmol/L BUN (9-20) mg/dL Creatinine (0.66-1.25) mg/dL Estimated GFR (>60) mL/min BUN/Creatinine Ratio (6-22) Glucose (80-110) mg/dL Lactate (0.7-2.1) mmol/L Calcium (8.4-10.2) mg/dL Magnesium (1.6-2.3) mg/dL Ferritin 152 (18-464) ng/mL Total Bilirubin (0.2-1.3) mg/dL AST (17-59) IU/L ALT (<50) IU/L Alkaline Phosphatase (38-126) U/L Ammonia 43 H (9-30) umol/L Lactate Dehydrogenase 1164 H (313-618) U/L Total Creatine Kinase (55-170) U/L CK-MB (CK-2) CK-MB (CK-2) Rel Index Troponin I (0.01-0.034) ng/mL C-Reactive Protein (<1.0) mg/dL NT-Pro-B Natriuret Pep (<125) pg/mL Total Protein (6.3-8.2) g/dL Albumin (3.5-5.0) g/dL Globulin (1.7-4.1) g/dL Albumin/Globulin Ratio (1.0-2.8) Lipase (23-300) U/L SARS-CoV-2 (PCR) (Negative) 11/22/20 11/22/20 11/22/20 Range/Units 10:20 10:20 10:20 WBC (4.5-11.0) X10^3/uL RBC (4.5-5.9) X10^6/uL Hgb (13.5-17.5) g/dL Hct (41-53) % MCV (80-100) fL MCH (26-34) PG MCHC (30-36) % RDW (11.6-14.8) % Plt Count (150-400) X10^3/uL Neut % (Auto) (50-75) % Lymph % (Auto) (25-40) % Real % (Auto) (3-14) % Eos % (Auto) (2-4) % Baso % (Auto) (0-2) % Neut # (Auto) (0662-2483) /uL Lymph # (Auto) (2320-6031) /uL Real # (Auto) (0-900) /uL Eos # (Auto) (0-450) /uL Baso # (Auto) (0-100) /uL PT 16.7 H (10.1-12.7) SECONDS INR 1.5 H (0.9-1.3) APTT 34 (26.4-36.2) SECONDS D-Dimer (<230) ng/mL Sodium 128 L (137-145) mmol/L Potassium 5.0 (3.4-5.1) mmol/L Chloride 98 (98-107) mmol/L Carbon Dioxide 29 (22-32) mmol/L BUN 37 H (9-20) mg/dL Creatinine 1.44 H (0.66-1.25) mg/dL Estimated GFR 49.5 L (>60) mL/min BUN/Creatinine Ratio 25.7 H (6-22) Glucose 146 H (80-110) mg/dL Lactate 1.8 (0.7-2.1) mmol/L Calcium 8.9 (8.4-10.2) mg/dL Magnesium 1.9 (1.6-2.3) mg/dL Ferritin (18-464) ng/mL Total Bilirubin 6.2 H (0.2-1.3) mg/dL AST 89 H (17-59) IU/L ALT 51 H (<50) IU/L Alkaline Phosphatase 151 H (38-126) U/L Ammonia (9-30) umol/L Lactate Dehydrogenase (313-618) U/L Total Creatine Kinase 79 (55-170) U/L CK-MB (CK-2) TNP CK-MB (CK-2) Rel Index TNP Troponin I 0.035 H (0.01-0.034) ng/mL C-Reactive Protein 1.5 H (<1.0) mg/dL NT-Pro-B Natriuret Pep 486 H (<125) pg/mL Total Protein 7.3 (6.3-8.2) g/dL Albumin 2.8 L (3.5-5.0) g/dL Globulin 4.5 H (1.7-4.1) g/dL Albumin/Globulin Ratio 0.6 L (1.0-2.8) Lipase 273 (23-300) U/L SARS-CoV-2 (PCR) (Negative) 11/22/20 11/22/20 Range/Units 10:30 12:00 WBC (4.5-11.0) X10^3/uL RBC (4.5-5.9) X10^6/uL Hgb (13.5-17.5) g/dL Hct (41-53) % MCV (80-100) fL MCH (26-34) PG MCHC (30-36) % RDW (11.6-14.8) % Plt Count (150-400) X10^3/uL Neut % (Auto) (50-75) % Lymph % (Auto) (25-40) % Real % (Auto) (3-14) % Eos % (Auto) (2-4) % Baso % (Auto) (0-2) % Neut # (Auto) (9557-2930) /uL Lymph # (Auto) (9901-4559) /uL Real # (Auto) (0-900) /uL Eos # (Auto) (0-450) /uL Baso # (Auto) (0-100) /uL PT (10.1-12.7) SECONDS INR (0.9-1.3) APTT (26.4-36.2) SECONDS D-Dimer 5525 H (<230) ng/mL Sodium (137-145) mmol/L Potassium (3.4-5.1) mmol/L Chloride (98-107) mmol/L Carbon Dioxide (22-32) mmol/L BUN (9-20) mg/dL Creatinine (0.66-1.25) mg/dL Estimated GFR (>60) mL/min BUN/Creatinine Ratio (6-22) Glucose (80-110) mg/dL Lactate (0.7-2.1) mmol/L Calcium (8.4-10.2) mg/dL Magnesium (1.6-2.3) mg/dL Ferritin (18-464) ng/mL Total Bilirubin (0.2-1.3) mg/dL AST (17-59) IU/L ALT (<50) IU/L Alkaline Phosphatase (38-126) U/L Ammonia (9-30) umol/L Lactate Dehydrogenase (313-618) U/L Total Creatine Kinase (55-170) U/L CK-MB (CK-2) CK-MB (CK-2) Rel Index Troponin I (0.01-0.034) ng/mL C-Reactive Protein (<1.0) mg/dL NT-Pro-B Natriuret Pep (<125) pg/mL Total Protein (6.3-8.2) g/dL Albumin (3.5-5.0) g/dL Globulin (1.7-4.1) g/dL Albumin/Globulin Ratio (1.0-2.8) Lipase (23-300) U/L SARS-CoV-2 (PCR) Negative (Negative) Imaging Data Chest x-ray: Radiologist Impression: [address] [id number] ReportSigned Patient: Juan Carlos Guzmán [facility] [place]#: [id number]: [id number]:[id number]/Sex: 65 / MDate of Service: 11/22/20Loc: EDAccession Number: [id number] Procedure: XR chest 1V Ordering Provider: Arnulfo Bird D.O. PROCEDURE: XR CHEST 1V INDICATIONS: fatigue, confusion, cough with hemoptysis TECHNIQUE: One view of the chest was acquired. COMPARISON: [facility], CR, XR RIBS LT MIN 3V W CXR1V, 08/21/2020, 9:53. FINDINGS: Surgical changes and devices: Surgical clips in the right upper quadrant. Lungs and pleura: Chronic right hemidiaphragm elevation. Lungs are clear. No pleural effusions or pneumothorax. Mediastinum: Mediastinal contours appear normal. Heart size is normal. Prominent right hilum and AP window. Bones and chest wall: No suspicious bony lesions. Overlying soft tissues appear unremarkable. IMPRESSION: 1. No acute cardiopulmonary disease. 2. Prominent right hilum and AP window. Cannot rule out lymphadenopathy. Recommend CT with contrast for further evaluation. Dictated by: Nathaniel Walker M.D. on 11/22/2020 at 10:31 Approved by: Nathaniel Walker M.D. on 11/22/2020 at 10:35 CT scan - chest: Radiologist Impression: 7 Arnulfo Bird DO Find Patient Imaging - Juan Carlos Guzmán M 1955 ACTIVITY DATE EXAM STATUS AUTHOR 11/22/20 11:21 11/22/20 11:10 Signed August Buchanan 11/22/20 10:51 Signed Matteo Dickens 11/22/20 10:13 Signed Luisito Walker [address] [id number] Scan ReportSigned Patient: Juan Carlos Guzmán [facility]#: [id number]: 1955cct:[id number]/Sex: 65 / MDate of Service: 11/22/20Loc: EDAccession Number: [id number] Procedure: CT angio chest PE protocol Ordering Provider: Arnulfo Bird D.O. PROCEDURE: CT ANGIO CHEST PE PROTOCOL INDICATIONS: SOB, cough with hemoptysis, abnormal CXR TECHNIQUE: After the administration of intravenous contrast, 2 mm thick sections acquired from the pulmonary apices to the posterior costophrenic angles. 3-dimensional maximum intensity projection (MIP) coronal and sagittal reformats were then acquired through the thorax. For radiation dose reduction, the following was used: automated exposure control, adjustment of mA and/or kV according to patient size. COMPARISON: [facility], CR, XR CHEST 1V, 11/22/2020, 10:22. FINDINGS: Image quality: Excellent. Pulmonary arteries: Pulmonary arteries are normal in size, and demonstrate no intraluminal filling defects to suggest central pulmonary embolism. Lungs and pleura: Lungs are minimally abnormal, with mild elevation of the right hemidiaphragm when compared to the left and associated posterior right basilar atelectasis is present. On the left there is a slight degree of patchy alveolar infiltration, best seen at the medial left lung base centered on series 3, image 260. This is nonspecific, can result from scarring from old inflammatory events, but also could represent a minimal nonspecific alveolitis pattern acute at this time . No pleural effusions or pneumothorax. Central and peripheral airways are patent. Mediastinum: Heart size is normal, without pericardial effusion. No mediastinal or hilar adenopathy. Thoracic aorta is normal in caliber and enhancement. Esophagus is normal in caliber, without hiatal hernia. Bones and chest wall: No suspicious bony lesions. Ribs and thoracic spine appear intact throughout. Thyroid gland is not well seen. No axillary or supraclavicular adenopathy. Abdomen: The liver is prominently abnormal with small size and nodular margination and scattered foci of metal artifact within suggestive of possible prior liver lesion ablation procedures. Ascites is moderate over the upper abdomen. IMPRESSION: No pulmonary embolus seen. No lung mass lesion or mediastinal/hilar adenopathy is present. There is chronic elevation of the right hemidiaphragm, producing mild right lung base atelectasis. A mild degree of patchy alveolitis pattern is present at the left lower lobe, nonspecific and potentially chronic from old inflammatory events or possibly acute but still nonspecific. Dictated by: Matteo Dickens M.D. on 11/22/2020 at 11:52 Approved by: Matteo Dickens M.D. on 11/22/2020 at 11:57 CT scan - abdomen/pelvis: Radiologist Impression: [address] [id number] Scan ReportSigned Patient: Juan Carlos Guzmán [facility] [place]#: [id number]: 7Acct:[id number]/Sex: 65 / MDate of Service: 11/22/20Loc: EDAccession Number: [id number] Procedure: CT abdomen pelvis w con Ordering Provider: Arnulfo Bird D.O. PROCEDURE: CT ABDOMEN PELVIS W CON INDICATIONS: jaundice, fatigue, nausea and vomiting TECHNIQUE: After the administration of intravenous contrast, 5 mm thick sections acquired from the diaphragm to the symphysis. 5 mm coronal and sagittal reformats were acquired. For radiation dose reduction, the following was used: automated exposure control, adjustment of mA and/or kV according to patient size. COMPARISON: None. FINDINGS: Image quality: Excellent. ABDOMEN: Lung bases: Lung bases are clear. Heart size is normal. Solid organs: Liver is small in size and mildly heterogeneous in enhancement, and nodular in margination consistent with severe cirrhosis. There is are several scare is of scattered metal artifact within the liver parenchyma likely reflecting evidence of prior ablation procedures. Note is made of a very large periumbilical vein which extends inferiorly, tracks to the common femoral vein and allows a collateral pathway for mesenteric flow cephalad through the external iliac vein.. Gallbladder contains several dependent layering small calcifications, but shows no definite evidence of acute cholecystitis or biliary obstruction. Biliary system is non dilated. Pancreas enhances normally. Spleen is normal in size and enhancement. No adrenal nodules. Kidneys demonstrate normal size and enhancement, without hydronephrosis. Peritoneum and bowel: Bowel loops demonstrate normal wall thickness and caliber. No free air. Ascites is moderate Nodes and vessels: No retroperitoneal or mesenteric adenopathy by size criteria. Aorta and inferior vena cava are normal in size. Miscellaneous: No ventral hernias. PELVIS: Genitourinary: Bladder wall thickness is normal. Miscellaneous: No inguinal hernias or adenopathy. Ascites extends from the abdomen into the pelvis. The large collateral vein decompressing portal hypertension on the right collateralizes with the common femoral vein and external iliac vein. Bones: No suspicious bony lesions. No vertebral body compression fractures. IMPRESSION: Severe cirrhosis, reactive ascites, portal hypertension with a very large venous collateral decompressive pathway through the periumbilical vein extending into the lower right pelvis tracking than cephalad through the [place] common femoral and external iliac vein into the systemic circulation. Generalized mild anasarca, moderate ascites, probable prior liver embolization procedures given the scattered metal artifact present within the liver parenchyma. No sign of intestinal obstruction or perforation. Dictated by: Matteo Dickens M.D. on 11/22/2020 at 11:57 Approved by: Matteo Dickens M.D. on 11/22/2020 at 12:04 CT scan - head: Radiologist Impression: [address] [id number] Scan ReportSigned Patient: Juan Carlos Guzmán [facility]#: [id number]: 1955cct:[id number]/Sex: 65 / MDate of Service: 11/22/20Loc: EDAccession Number: [id number] Procedure: CT head/brain wo con Ordering Provider: Arnulfo Bird D.O. PROCEDURE: CT HEAD/BRAIN WO CON INDICATIONS: altered mental status, elevated INR TECHNIQUE: Noncontrast 4.5 mm thick angled axial sections acquired from the foramen magnum to the vertex, with coronal and sagittal reformats. For radiation dose reduction, the following was used: automated exposure control, adjustment of mA and/or kV according to patient size. COMPARISON: None. FINDINGS: Image quality: Excellent. CSF spaces: Basal cisterns are patent. No extra-axial fluid collections. Ventricles are normal in size and shape. Brain: No midline shift. No intracranial masses or hemorrhage. Bustillos-white matter interface is normal. Skull and face: Calvarium and visualized facial bones are intact, without suspicious lesions. Sinuses: Visualized sinuses and mastoids are clear. IMPRESSION: No acute intracranial abnormality. Dictated by: August Buchanan M.D. on 11/22/2020 at 11:50 Approved by: August Buchanan M.D. on 11/22/2020 at 11:53 ECG Data Interpretation: NSR 79. No ectopy. NO ST segmental elevation/depression. no hyperacute T waves, no flipped T waves Discharge Plan Departure Patient Disposition: Admitted As Inpatient Clinical Impression: Acute hepatic encephalopathy, Acute hyponatremia, Acute liver failure Admit Date/Time: 11/22/20 12:21 Admit Provider: Catalino Rose
[2020-11-22 10:35] LABS: Add Manual Diff / Slide Review NO; Basophils Absolute Auto 0 /uL (0-100); Basophils Percent Auto 0.3 % (0-2); Eosinophils Absolute Auto 200 /uL (0-450); Eosinophils Percent Auto 2.7 % (2-4); Hematocrit 30.5 % (41-53); Hemoglobin 10.3 g/dL (13.5-17.5); Lymphocytes Absolute Auto 300 /uL (1100-4500); Lymphocytes Percent Auto 5.5 % (25-40); Mean Corpuscular HGB Conc 33.8 % (30-36); Mean Corpuscular Volume 100.6 fL (80-100); Monocytes Absolute Auto 800 /uL (0-900); Monocytes Percent Auto 13.1 % (3-14); Neutrophils Absolute Auto 4700 /uL (1500-7000); Neutrophils Percent Auto 78.4 % (50-75); Platelet Count 44 X10^3/uL (150-400); Red Blood Cell Count 3.03 X10^6/uL (4.5-5.9)
[2020-11-22 10:41] LABS: INR 1.5 (0.9-1.3); Prothrombin Time 16.7 SECONDS (10.1-12.7)
[2020-11-22 10:43] LABS: PTT Partial Thromboplastin Tim 34 SECONDS (26.4-36.2)
[2020-11-22 10:46] LABS: Lactate (Lactic Acid) 1.8 mmol/L (0.7-2.1)
[2020-11-22 10:48] LABS: Ammonia (NH3) 43 umol/L (9-30); Lactate Dehydrogenase 1164 U/L (313-618)
[2020-11-22 10:50] LABS: Alanine Aminotransferase 51 IU/L (<50); Albumin 2.8 g/dL (3.5-5.0); Albumin Globulin Ratio 0.6 (1.0-2.8); Alkaline Phosphatase 151 U/L (38-126); Aspartate Aminotransferase 89 IU/L (17-59); BUN Creatinine Ratio 25.7 (6-22); Bilirubin Total 6.2 mg/dL (0.2-1.3); Blood Urea Nitrogen 37 mg/dL (9-20); C-Reactive Protein Quant 1.5 mg/dL (<1.0); Calcium 8.9 mg/dL (8.4-10.2); Carbon Dioxide 29 mmol/L (22-32); Chloride 98 mmol/L (98-107); Creatine Kinase 79 U/L (55-170); Estimated Glomerular Filt Rate 49.5 mL/min (>60); Globulin 4.5 g/dL (1.7-4.1); Glucose 146 mg/dL (80-110); Lipase 273 U/L (23-300); Magnesium 1.9 mg/dL (1.6-2.3); Sodium 128 mmol/L (137-145); Total Protein 7.3 g/dL (6.3-8.2)
--- NOTE | 2020-11-22 10:51 | DI.CT.S_ITS ---
PROCEDURE: CT ANGIO CHEST PE PROTOCOL INDICATIONS: SOB, cough with hemoptysis, abnormal CXR TECHNIQUE: After the administration of intravenous contrast, 2 mm thick sections acquired from the pulmonary apices to the posterior costophrenic angles. 3-dimensional maximum intensity projection (MIP) coronal and sagittal reformats were then acquired through the thorax. For radiation dose reduction, the following was used: automated exposure control, adjustment of mA and/or kV according to patient size. COMPARISON: [facility], CR, XR CHEST 1V, 11/22/2020, 10:22. FINDINGS: Image quality: Excellent. Pulmonary arteries: Pulmonary arteries are normal in size, and demonstrate no intraluminal filling defects to suggest central pulmonary embolism. Lungs and pleura: Lungs are minimally abnormal, with mild elevation of the right hemidiaphragm when compared to the left and associated posterior right basilar atelectasis is present. On the left there is a slight degree of patchy alveolar infiltration, best seen at the medial left lung base centered on series 3, image 260. This is nonspecific, can result from scarring from old inflammatory events, but also could represent a minimal nonspecific alveolitis pattern acute at this time . No pleural effusions or pneumothorax. Central and peripheral airways are patent. Mediastinum: Heart size is normal, without pericardial effusion. No mediastinal or hilar adenopathy. Thoracic aorta is normal in caliber and enhancement. Esophagus is normal in caliber, without hiatal hernia. Bones and chest wall: No suspicious bony lesions. Ribs and thoracic spine appear intact throughout. Thyroid gland is not well seen. No axillary or supraclavicular adenopathy. Abdomen: The liver is prominently abnormal with small size and nodular margination and scattered foci of metal artifact within suggestive of possible prior liver lesion ablation procedures. Ascites is moderate over the upper abdomen. IMPRESSION: No pulmonary embolus seen. No lung mass lesion or mediastinal/hilar adenopathy is present. There is chronic elevation of the right hemidiaphragm, producing mild right lung base atelectasis. A mild degree of patchy alveolitis pattern is present at the left lower lobe, nonspecific and potentially chronic from old inflammatory events or possibly acute but still nonspecific. Dictated by: Matteo Dickens M.D. on 11/22/2020 at 11:52 Approved by: Matteo Dickens M.D. on 11/22/2020 at 11:57
[2020-11-22 10:59] LABS: NT-proBNP (BNP-Adult 18+) 486 pg/mL (<125); Troponin I 0.035 ng/mL (0.01-0.034)
[2020-11-22 11:00] LABS: HEMOLYSIS 99 (0-50)
[2020-11-22 11:02] LABS: COVID19 -Nasal RAPID Negative (Negative)
[2020-11-22] MEDS: SODIUM CHLORIDE 0.9% 500 ML 1000 ML IV (11:06)
--- NOTE | 2020-11-22 11:10 | DI.CT.S_ITS ---
PROCEDURE: CT HEAD/BRAIN WO CON INDICATIONS: altered mental status, elevated INR TECHNIQUE: Noncontrast 4.5 mm thick angled axial sections acquired from the foramen magnum to the vertex, with coronal and sagittal reformats. For radiation dose reduction, the following was used: automated exposure control, adjustment of mA and/or kV according to patient size. COMPARISON: None. FINDINGS: Image quality: Excellent. CSF spaces: Basal cisterns are patent. No extra-axial fluid collections. Ventricles are normal in size and shape. Brain: No midline shift. No intracranial masses or hemorrhage. Bustillos-white matter interface is normal. Skull and face: Calvarium and visualized facial bones are intact, without suspicious lesions. Sinuses: Visualized sinuses and mastoids are clear. IMPRESSION: No acute intracranial abnormality. Dictated by: August Buchanan M.D. on 11/22/2020 at 11:50 Approved by: August Buchanan M.D. on 11/22/2020 at 11:53
--- NOTE | 2020-11-22 11:21 | DI.CT.S_ITS ---
PROCEDURE: CT ABDOMEN PELVIS W CON INDICATIONS: jaundice, fatigue, nausea and vomiting TECHNIQUE: After the administration of intravenous contrast, 5 mm thick sections acquired from the diaphragm to the symphysis. 5 mm coronal and sagittal reformats were acquired. For radiation dose reduction, the following was used: automated exposure control, adjustment of mA and/or kV according to patient size. COMPARISON: None. FINDINGS: Image quality: Excellent. ABDOMEN: Lung bases: Lung bases are clear. Heart size is normal. Solid organs: Liver is small in size and mildly heterogeneous in enhancement, and nodular in margination consistent with severe cirrhosis. There is are several scare is of scattered metal artifact within the liver parenchyma likely reflecting evidence of prior ablation procedures. Note is made of a very large periumbilical vein which extends inferiorly, tracks to the common femoral vein and allows a collateral pathway for mesenteric flow cephalad through the external iliac vein.. Gallbladder contains several dependent layering small calcifications, but shows no definite evidence of acute cholecystitis or biliary obstruction. Biliary system is non dilated. Pancreas enhances normally. Spleen is normal in size and enhancement. No adrenal nodules. Kidneys demonstrate normal size and enhancement, without hydronephrosis. Peritoneum and bowel: Bowel loops demonstrate normal wall thickness and caliber. No free air. Ascites is moderate Nodes and vessels: No retroperitoneal or mesenteric adenopathy by size criteria. Aorta and inferior vena cava are normal in size. Miscellaneous: No ventral hernias. PELVIS: Genitourinary: Bladder wall thickness is normal. Miscellaneous: No inguinal hernias or adenopathy. Ascites extends from the abdomen into the pelvis. The large collateral vein decompressing portal hypertension on the right collateralizes with the common femoral vein and external iliac vein. Bones: No suspicious bony lesions. No vertebral body compression fractures. IMPRESSION: Severe cirrhosis, reactive ascites, portal hypertension with a very large venous collateral decompressive pathway through the periumbilical vein extending into the lower right pelvis tracking than cephalad through the [place] common femoral and external iliac vein into the systemic circulation. Generalized mild anasarca, moderate ascites, probable prior liver embolization procedures given the scattered metal artifact present within the liver parenchyma. No sign of intestinal obstruction or perforation. Dictated by: Matteo Dickens M.D. on 11/22/2020 at 11:57 Approved by: Matteo Dickens M.D. on 11/22/2020 at 12:04
[2020-11-22 11:23] LABS: Ferritin 152 ng/mL (18-464)
[2020-11-22] MEDS: LACTULOSE 20 GM/30 ML SOLUTION PO ×2 (12:03→20:54)
[2020-11-22 12:33] LABS: D Dimer 5525 ng/mL (<230)
--- NOTE | 2020-11-22 14:20 | PC.NURSE ---
Patient alert, oriented to self, place, situation. Rates pain to RLE 4/10, reports is much better. Denies nausea. Patient oriented to room and call light, gait steady to bathroom. Alarm on.
--- NOTE | 2020-11-22 14:44 | PM.HP.1 ---
History of Present Illness History of Present Illness Date Patient Seen: 11/22/20 Time Patient Seen: 14:00 Date of Onset of Symptoms: 11/22/20 Chief complaint: cold,confusion,coughing blood Narrative: Patient is a 65-year-old male with chronic hep C cirrhosis, ascites, history of resection of hepatocellular carcinoma, chronic kidney disease, asthma sent to emergency department for acute confusion. He was apparently seen at his primary care office and noted to be talking gibberish and not mentating normally and directed to the ED. Patient's states he has been confused for couple of days. He was recently admitted from 11/03 to 11/08 for right lower extremity cellulitis and possible gout in the right knee. He did have 1 of 4 blood cultures positive for Staph aureus in anaerobic bottle only which was thought to be most likely contaminant. Patient completed outpatient antibiotic and prednisone course. He denies fever, cough, shortness of breath, abdominal pain, worsening ascites or swelling of the legs. Patient does not have previous history of hepatic encephalopathy. Patient is on chronic oxycodone for the last several months which was started after he fell down a flight of stairs but apparently was continued for chronic knee pain. He was afebrile in the ED with stable vitals. Laboratories workup concerning for acute decompensation of cirrhosis with bilirubin of 6.2 compared to recent baseline of 1.6 on November 07. Also his ammonia level was 43 whereas previous values less than 9. INR 1.5 similar to past values. Also more thrombocytopenic with platelet count of 44. Head CT without acute findings. Chest CTA negative for PE, mild patchy alveolitis in left lower lobe which was nonspecific and possibly chronic. Abdomen and pelvis CT showed severe cirrhosis, moderate ascites, portal hypertension. Patient was given IV fluid bolus and dose of lactulose in the ED. By the time I evaluated him on the floor, his confusion seems to be largely clearing up. Patient additionally provides information that he has been out of heat at home since his wood pellet fired stove broke down although they have a backup propane heater and a space heater in the bedroom. Spouse states that they are able to keep bedroom quite warm with a space heater. Patient History Medical History (Updated 11/22/20 @ 12:20 by Arnulfo Bird DO) Anasarca Ascites Asthma Elevated brain natriuretic peptide (BNP) level Hepatitis C Hypertension Liver cancer Liver cirrhosis Surgical History History of surgery of liver Family & Social History Family History Father Trauma Mother Sjogrens syndrome Sister No significant medical problems Social History: household members spouse Prior Living Arrangements House Safety & Behavioral: Feels Safe in Current Yes Environment Been Physically Hurt or No Threatened By a Person Suicidal Ideation Description None Suicide Plan Description No Plan Tobacco & Substance use: Tobacco type cigarettes Smoking Status Former smoker alcohol intake former alcohol intake frequency 0-2 drinks per day Substance Use Type marijuana Meds Home Medications and Allergies Home Medications Medication Instructions Recorded Confirmed Type albuterol sulfate 90 mcg/actuation 2 inhalation INHALATION Q4-6H PRN 01/23/20 11/22/20 Rx breath activated powder inhaler #1 each spironolactone 200 mg PO DAILY 04/15/20 11/04/20 History oxycodone 5 mg PO Q6H PRN #14 tab 08/21/20 11/04/20 Rx bumetanide 2 mg PO DAILY 11/22/20 11/22/20 History Allergies Allergy/AdvReac Type Severity Reaction Status Date / Time No Known Drug Allergies Allergy Verified 11/22/20 10:26 Review of Systems Review of Systems ROS: Yes All systems reviewed with the patient and are negative except as otherwise documented Exam Vital Signs (past 8 hours): - 11/22/20 10:03 11/22/20 10:09 11/22/20 10:15 Temperature 98.4 F Pulse Rate 87 88 85 Respiratory Rate 24 23 Blood Pressure 167/78 H Pulse Oximetry 98 99 99 11/22/20 10:30 11/22/20 10:32 11/22/20 10:45 Temperature Pulse Rate 79 79 79 Respiratory Rate 18 20 13 Blood Pressure 132/59 L 123/58 L Pulse Oximetry 98 100 95 11/22/20 11:00 11/22/20 11:15 11/22/20 11:39 Temperature Pulse Rate 85 80 79 Respiratory Rate 15 13 Blood Pressure 125/58 L 155/72 H 149/70 H Pulse Oximetry 94 97 100 11/22/20 11:45 11/22/20 12:00 11/22/20 12:15 Temperature 98.2 F Pulse Rate 79 81 80 Respiratory Rate 15 19 15 Blood Pressure 145/70 H 133/63 154/72 H Pulse Oximetry 95 95 11/22/20 12:30 11/22/20 12:45 11/22/20 13:00 Temperature Pulse Rate 81 79 79 Respiratory Rate 13 12 13 Blood Pressure 149/70 H 126/61 134/63 Pulse Oximetry 11/22/20 13:35 Temperature 98.4 F Pulse Rate 84 Respiratory Rate 18 Blood Pressure 155/84 H Pulse Oximetry Oxygen Delivery Method Room Air Narrative Exam Narrative: General: Alert and conversant male in no acute distress HEENT: Jaundiced, pupils equal, EOMI Neck: No lymphadenopathy Lungs: Clear to auscultation Heart: Regular rhythm without murmur Abdomen: Soft, nontender Extremities: R>L 1 to 2+ pitting edema, mild venous stasis changes on the right, there is no redness, tenderness or acute swelling of the knee joints Neurological: Affect normal, speech normal, oriented to person and place, no asterixis, nonfocal Objective Labs Result Diagrams: 11/22/20 10:20 11/22/20 10:20 Labs: Laboratory Results - last 24 hr 11/22/20 11/22/20 11/22/20 10:20 10:20 10:20 WBC 6.0 RBC 3.03 L Hgb 10.3 L Hct 30.5 L MCV 100.6 H MCH 34.0 MCHC 33.8 RDW 17.0 H Plt Count 44 L Neut % (Auto) 78.4 H Lymph % (Auto) 5.5 L [place] % (Auto) 13.1 Eos % (Auto) 2.7 Baso % (Auto) 0.3 Neut # (Auto) 4700 Lymph # (Auto) 300 L [place] # (Auto) 800 Eos # (Auto) 200 Baso # (Auto) 0 PT INR APTT D-Dimer Sodium Potassium Chloride Carbon Dioxide BUN Creatinine Estimated GFR BUN/Creatinine Ratio Glucose Lactate Calcium Magnesium Ferritin 152 Total Bilirubin AST ALT Alkaline Phosphatase Ammonia 43 H Lactate Dehydrogenase 1164 H Total Creatine Kinase CK-MB (CK-2) CK-MB (CK-2) Rel Index Troponin I C-Reactive Protein NT-Pro-B Natriuret Pep Total Protein Albumin Globulin Albumin/Globulin Ratio Lipase SARS-CoV-2 (PCR) 11/22/20 11/22/20 11/22/20 10:20 10:20 10:20 WBC RBC Hgb Hct MCV MCH MCHC RDW Plt Count Neut % (Auto) Lymph % (Auto) Ing[place] % (Auto) Eos % (Auto) Baso % (Auto) Neut # (Auto) Lymph # (Auto) Ing[place] # (Auto) Eos # (Auto) Baso # (Auto) PT 16.7 H INR 1.5 H APTT 34 D-Dimer Sodium 128 L Potassium 5.0 Chloride 98 Carbon Dioxide 29 BUN 37 H Creatinine 1.44 H Estimated GFR 49.5 L BUN/Creatinine Ratio 25.7 H Glucose 146 H Lactate 1.8 Calcium 8.9 Magnesium 1.9 Ferritin Total Bilirubin 6.2 H AST 89 H ALT 51 H Alkaline Phosphatase 151 H Ammonia Lactate Dehydrogenase Total Creatine Kinase 79 CK-MB (CK-2) TNP CK-MB (CK-2) Rel Index TNP Troponin I 0.035 H C-Reactive Protein 1.5 H NT-Pro-B Natriuret Pep 486 H Total Protein 7.3 Albumin 2.8 L Globulin 4.5 H Albumin/Globulin Ratio 0.6 L Lipase 273 SARS-CoV-2 (PCR) 11/22/20 11/22/20 10:30 12:00 WBC RBC Hgb Hct MCV MCH MCHC RDW Plt Count Neut % (Auto) Lymph % (Auto) Ing[place] % (Auto) Eos % (Auto) Baso % (Auto) Neut # (Auto) Lymph # (Auto) Ing[place] # (Auto) Eos # (Auto) Baso # (Auto) PT INR APTT D-Dimer 5525 H Sodium Potassium Chloride Carbon Dioxide BUN Creatinine Estimated GFR BUN/Creatinine Ratio Glucose Lactate Calcium Magnesium Ferritin Total Bilirubin AST ALT Alkaline Phosphatase Ammonia Lactate Dehydrogenase Total Creatine Kinase CK-MB (CK-2) CK-MB (CK-2) Rel Index Troponin I C-Reactive Protein NT-Pro-B Natriuret Pep Total Protein Albumin Globulin Albumin/Globulin Ratio Lipase SARS-CoV-2 (PCR) Negative Assessment & Plan Assessment & Plan narrative: Patient is a 65-year-old male with chronic hep C cirrhosis, ascites, history of resection of hepatocellular carcinoma, chronic kidney disease, asthma sent to emergency department for acute confusion. 1. Acute hepatic encephalopathy -patient presenting with acute confusion which appears due to decompensated cirrhosis, ammonia level 43, WBC normal -patient with improvement after IV fluid bolus and lactulose in the ED -ultrasound-guided diagnostic paracentesis, rule out SBP -blood culture x2 sent through ED -urinalysis -procalcitonin -continue lactulose 20 g b.i.d. 2. Acute decompensated hepatitis-C cirrhosis -total bilirubin 6.2, this is significant increase compared to bili of 1.6 on 11/07/2020, and additionally he is more thrombocytopenic, however INR 1.5 is stable relative to previous values -reason for liver decompensation is unclear, rule out infection such as SBP, rule out recurrence of hepatocellular carcinoma -CT abdomen and pelvis: severe cirrhosis, moderate ascites, portal hypertension with large venous collateral pathways through periumbilical vein extending to lower right pelvis then cephalad through common femoral and external iliac vein -chest CTA shows patchy alveolitis left lower lobe although patient without symptoms of pneumonia -patient sees Dr. Johann Dominguez at [facility], spoke to Dr. Dominguez, who recommends ruling out SBP or other infection and checking AFP (note Dr. dominguez is leaving [facility] and patient will have need to establish with new provider at the liver clinic) -AFP pending, per records at [facility], patient's last AFP was 3.1 3. Cirrhotic ascites -patient has moderate ascites on CT and mild edema in legs which seems stable -continue bumetanide 2 mg daily and spironolactone 100 mg daily 4. Chronic kidney disease -patient with stable creatinine, no evidence of hepatorenal syndrome 4. Opioid dependency -patient states he has been taking 4 oxycodone a day for the past few months, started after fell down a flight of stairs and injured ribs, but continued for chronic pain in the right knee, previous x-rays of the knee show tricompartmental arthritis -reviewed with patient narcotic pain relievers are not considered good long-term medications for arthritis pain, even with his liver disease he can take low doses of Tylenol such as 325 mg 4 times daily, use topical analgesics such as diclofenac, and other modalities such as ice/heat -patient agreeable to stopping oxycodone especially in light of worsening liver function and risk for accumulation and contributing to confusion Admit to hospital observation services for hepatic encephalopathy and decompensated cirrhosis.
[2020-11-22 17:04] LABS: Procalcitonin 0.17 ng/mL (<0.5)
--- NOTE | 2020-11-22 17:04 | DI.US.S_ITS ---
PROCEDURE: US PARACENTESIS INDICATIONS: PARACENTESIS ASCITES TECHNIQUE: The indications, alternatives, benefits, risks, and complications of the procedure were explained to the patient. Written informed consent was obtained and placed in the chart. The abdomen and pelvis were examined sonographically, and an appropriate site was chosen for paracentesis. The skin was prepared and draped in the usual sterile fashion, and 1% lidocaine was infiltrated from the skin down through the peritoneal surface. A 19-gauge catheter-covered needle was then introduced into the peritoneal space, the catheter was advanced and the needle was withdrawn, and thereafter peritoneal fluid was withdrawn. The catheter was then removed and a dressing was applied. The fluid was discarded if the clinician did not order diagnostic testing of the fluid. COMPARISON: [facility], US, US ABDOMEN LIMITED, 11/23/2020, 16:07. [facility], CT, CT ABDOMEN PELVIS W CON, 11/22/2020, 11:09. FINDINGS: Access site: Right lower abdomen/pelvis Needle: 20 gauge aspiration needle. Fluid volume and description: There is insufficient ascites for safe therapeutic paracentesis, which requires large gauge needle, catheter covered. Ascites fluid was obtained for laboratory analysis at the request of the ordering healthcare provider, by Dr. Buchanan. Fluid sent for diagnostic testing: Fluid was sent for analysis at the direction of the ordering healthcare provider. Medications: 1% lidocaine for local anaesthesia. Complications: None. IMPRESSION: Successful ultrasound-guided diagnostic paracentesis. Dictated by: Matteo Dickens M.D. on 11/25/2020 at 8:42 Approved by: Matteo Dickens M.D. on 11/25/2020 at 8:47
--- NOTE | 2020-11-22 17:05 | PATH_ITS ---
Note [facility] Accession Number: [id number] TESTS RESULT FLAG UNITS REF RANGE LAB Clinician Provided Cytology Information No. of containers..01 Other (Miscellaneous) 01 ABDOMINAL FLUID DIAGNOSIS: 02 ABDOMINAL FLUID INCONCLUSIVE. SEE COMMENT. REACTIVE MESOTHELIAL CELLS ARE PRESENT. THIS INTERPRETATION INCLUDES EVALUATION OF A CELL BLOCK. COMMENT: A cytology preperation and a cell block are of predominantly bland small epitheliod cells, singly and in tight clusters. The overall features are are favored to represent reactive mesothelial cells. Please see concurrent cytology ([id number]) for immunophenotypical profile and comments. As part of routine quality management nurse, this case was reviewed by Dr. Cardenas, who agrees with the interpretation above. Pathologist ICD10: 02 R18.8 02 Johann Almaguer MD, PhD, Pathologist NPI- [id number] Cesar Gipson, Chief Estimator ([facility]) 01 25 CC, YELLOW, CLEAR RECEIVED: FRESH IN BLUE CAP CONTAINER. /[facility] 11/25/2020 1043 Local FLAG LEGEND: L-Low Normal,H-High Normal,LL-Alert Low,HH-Alert High <-Panic Low,>-Panic High,A-Abnormal,AA-Critical Abnormal Performed at: 01 =Z [facility] [address] [place] [address], [place] [address] Amado Escudero MD, 02 [facility] [address] [place] [id number] Irene River MD, Specimen Comment: A courtesy copy of this report has been sent to [phone] Performed at: 01 [facility] [address], [place], [place] [id number] MD Amado Escudero MD Phone: [phone]
[2020-11-22 17:33] LABS: Appearance Urine UA CLEAR; Bilirubin Urine UA NEGATIVE (NEGATIVE); Color Urine UA YELLOW; Glucose Urine UA TRACE g/dL (Negative); Ketones Urine UA NEGATIVE (NEGATIVE); Leukocyte Esterase Urine UA NEGATIVE (NEGATIVE); Nitrite Urine UA NEGATIVE (Negative); Occult Blood Urine UA 3+ (Negative); Protein Urine UA TRACE (Negative); Urobilinogen Urine UA 0.2 E.U./dL (0.2)
[2020-11-22 17:49] LABS: Bacteria Urine Occasional (0-1); Culture Indicated Urine Cult Not Indicated; RBC Urine 30-100/HPF (0-5/HPF); Squamous Epithelial Cell Urine 0-1 /HPF (0-5/HPF); WBC Urine 0-1/HPF (0-5/HPF)
[2020-11-22 18:28] LABS: Albumin Body Fluid < 1.0 g/dL
[2020-11-22 19:00] LABS: Body Fluid Red Blood Cells 347 /uL; Body Fluid Tot Nucleated Cells 140 /uL
[2020-11-22 19:55] LABS: Body Fluid Color YELLOW
[2020-11-22 19:56] LABS: Body Fluid Appearance SLIGHTLY CLOUDY; Body Fluid Clotted? NO CLOTS PRESENT; Eosinophils Body Fluid 2 %; Mononuclear WBC Body Fluid 95 %; Polynuclear WBC Body Fluid 3 %
[2020-11-22] MEDS: DICLOFENAC 1% GEL 100 GM 1 APPLIC TOP (20:55)
[2020-11-22] MEDS: SODIUM CHLORIDE 0.9% FLUSH 10 ML IV (20:55)
[2020-11-23] VITALS (10 sets, daily range): BP systolic 114–133; BP diastolic 56–86; PULSE 67–89; RESP 16–20; TEMP 36.3–36.9; O2SAT 95–99
--- NOTE | 2020-11-23 01:45 | PC.NURSE ---
2300 Received safe hand-off report. The patient is awake and oriented x3, disoriented to date. He denies pain. His abdomen is mildly distended and he has 2-3+ pitting edema of BLE. He has been given lactulose, but denies any loose stools. He has a left forearm PIV that is saline locked, and is on room air. No s/sx of distress.
[2020-11-23] MEDS: ACETAMINOPHEN 325 MG TABLET PO ×4 (03:11→21:18)
[2020-11-23 04:57] LABS: Hematocrit 29.2 % (41-53); Mean Corpuscular HGB Conc 34.1 % (30-36); Mean Corpuscular Hemoglobin 34.3 PG (26-34); Mean Corpuscular Volume 100.4 fL (80-100); Platelet Count 40 X10^3/uL (150-400); White Blood Cell Count 6.3 X10^3/uL (4.5-11.0)
[2020-11-23 04:59] LABS: INR 1.5 (0.9-1.3); Prothrombin Time 16.7 SECONDS (10.1-12.7)
[2020-11-23 05:12] LABS: Alanine Aminotransferase 47 IU/L (<50); Albumin 2.5 g/dL (3.5-5.0); Albumin Globulin Ratio 0.6 (1.0-2.8); Alkaline Phosphatase 148 U/L (38-126); Aspartate Aminotransferase 63 IU/L (17-59); BUN Creatinine Ratio 25.5 (6-22); Bilirubin Total 6.4 mg/dL (0.2-1.3); Blood Urea Nitrogen 37 mg/dL (9-20); Calcium 9.2 mg/dL (8.4-10.2); Carbon Dioxide 31 mmol/L (22-32); Chloride 100 mmol/L (98-107); Estimated Glomerular Filt Rate 49.2 mL/min (>60); Glucose 140 mg/dL (80-110); HEMOLYSIS < 15 (0-50); Potassium 4.8 mmol/L (3.4-5.1); Sodium 129 mmol/L (137-145); Total Protein 6.5 g/dL (6.3-8.2)
[2020-11-23 05:15] LABS: Troponin I 0.026 ng/mL (0.01-0.034)
[2020-11-23 05:19] LABS: Add Manual Diff / Slide Review YES
[2020-11-23 05:56] LABS: Neutrophils Absolute Manual 5544 /uL (3000-5900); Total Cells Counted 100
[2020-11-23 05:57] LABS: Anisocytosis 2+; Hypochromasia 1+; Macrocytosis 1+
[2020-11-23 07:40] LABS: Alpha Fetoprotein 1.7 ng/mL (0.0-8.3)
[2020-11-23] MEDS: BUMETANIDE 1 MG TABLET 2 MG PO (08:39)
[2020-11-23] MEDS: DICLOFENAC 1% GEL 100 GM 1 APPLIC TOP (08:42)
[2020-11-23] MEDS: SODIUM CHLORIDE 0.9% FLUSH 10 ML IV ×2 (08:44→19:29)
[2020-11-23] MEDS: LACTULOSE 20 GM/30 ML SOLUTION PO ×2 (08:44→20:02)
[2020-11-23] MEDS: SPIRONOLACTONE 25 MG TABLET 100 MG PO (08:44)
--- NOTE | 2020-11-23 10:24 | CM.DANOTE ---
DCP: Case received, EMR reviewed and met with patient. Introduced self and role. Was able to obtain information from patient regarding his baseline activity status prior to hospitalization, as well as his current living situation. DCP assessment completed with information currently available. Patient is a 65 year old male who admitted yesterday afternoon to the care of the hospitalist team. PCP: Dr. Payan. Payer: confirmed: Medicare/Medicaid. Patient came to the hospital via private vehicle secondary to having some confusion, was sent from his medical provider's office. Patient has history of hepatitis C, as well as cirrhosis of the liver. He was diagnosed with acute hepatic encephalopathy. Met with patient in his room. He was in bed, alert and oriented. He resides in [place] with his spouse, Tayler. He does not drive, uses a cane. Stated that their pellit stove isn't currently working, and are having difficulty with the heating situation. He mentioned the possibility of he and his significant staying in a motel temporarily. P: Discussed patient during team rounds, and patient will most likely discharge home today. It will be a matter of possibility of having his spouse milk pickup driver patient, but due to the amount of snow, may be a challenge. Addis Roca, TAMMY/Boiler Operator Helper
--- NOTE | 2020-11-23 13:50 | P.PN_ITS ---
Subjective Subjective Date Patient Seen: 11/23/20 Time Patient Seen: 08:45 Interval history: This is a 65-year-old male with a past medical history of hep C cirrhosis and hypertension admitted with elevated bilirubin and hepatic encephalopathy. Improved slightly today after starting on lactulose therapy, but seemingly slightly confused compared to previous admission. Bilirubin also unchanged today. AFP level improved from previous studies. Exam Vital Signs (past 8 hours): - 11/23/20 08:00 11/23/20 12:00 Temperature 98 F 97.7 F Pulse Rate 80 79 Respiratory Rate 18 18 Blood Pressure 133/61 132/62 Pulse Oximetry 99 98 Oxygen Delivery Method Room Air Oxygen Flow Rate 0 Narrative Exam Narrative: General: Alert and conversant male in no acute distress HEENT: Jaundiced, pupils equal, EOMI Neck: No lymphadenopathy, supple, trachea midline. Lungs: Clear to auscultation bilaterally without wheezing, rhonchi, rales. Heart: Regular rhythm without murmur Abdomen: Soft, nontender Extremities: R>L 1 to 2+ pitting edema, mild venous stasis changes on the right, there is no redness, tenderness or acute swelling of the knee joints Neurological: Affect normal, speech normal, oriented to person and place, no asterixis, nonfocal exam but slightly more confused compared to previous admission. Objective Labs Result Diagrams: 11/23/20 04:43 11/23/20 04:43 Labs: Laboratory Results - last 24 hr 11/22/20 11/22/20 11/22/20 12:00 12:00 17:17 WBC RBC Hgb Hct MCV MCH MCHC RDW Plt Count Neut % (Auto) Lymph % (Auto) Hall % (Auto) Eos % (Auto) Baso % (Auto) Lymph # (Auto) Hall # (Auto) Baso # (Auto) Total Counted Seg Neutrophils % Lymphocytes % (Manual) Monocytes % (Manual) Eosinophils % (Manual) Basophils % (Manual) Neutrophils # (Manual) RBC Morphology Hypochromasia Anisocytosis Macrocytosis PT INR Sodium Potassium Chloride Carbon Dioxide BUN Creatinine Estimated GFR BUN/Creatinine Ratio Glucose Calcium Total Bilirubin AST ALT Alkaline Phosphatase Troponin I Total Protein Albumin Globulin Albumin/Globulin Ratio Alpha Fetoprotein 1.7 Procalcitonin 0.17 Urine Color Yellow Urine Appearance Clear Urine pH 7.0 Ur Specific [place] 1.010 Urine Protein Trace H Urine Glucose (UA) Trace H Urine Ketones Negative Urine Occult Blood 3+ H Urine Nitrate Negative Urine Bilirubin Negative Urine Urobilinogen 0.2 Ur Leukocyte Esterase Negative Urine RBC 30-100/hpf H Urine WBC 0-1/hpf Ur Squamous Epith Cells 0-1 /hpf Urine Bacteria Occasional (0-1) Ur Culture Indicated? Cult not indicated Fluid Color Fluid Appearance Fluid RBC Fld Tot Nucleated Cell Fluid Polynuclear WBCs Fluid Mononuclear WBCs Fluid Eosinophils Fluid Other Cells Body Fluid Clot Fluid Albumin 11/22/20 11/22/20 11/23/20 17:55 17:55 04:43 WBC 6.3 RBC 2.90 L Hgb 10.0 L Hct 29.2 L MCV 100.4 H MCH 34.3 H MCHC 34.1 RDW 17.0 H Plt Count 40 L Neut % (Auto) Not Reportable Lymph % (Auto) Not Reportable Hall % (Auto) Not Reportable Eos % (Auto) Not Reportable Baso % (Auto) Not Reportable Lymph # (Auto) Not Reportable Hall # (Auto) Not Reportable Baso # (Auto) Not Reportable Total Counted 100 Seg Neutrophils % 88.0 H Lymphocytes % (Manual) 4.0 L Monocytes % (Manual) 3.0 Eosinophils % (Manual) 3.0 Basophils % (Manual) 2.0 H Neutrophils # (Manual) 5544 RBC Morphology See below Hypochromasia 1+ H Anisocytosis 2+ H Macrocytosis 1+ H PT INR Sodium Potassium Chloride Carbon Dioxide BUN Creatinine Estimated GFR BUN/Creatinine Ratio Glucose Calcium Total Bilirubin AST ALT Alkaline Phosphatase Troponin I Total Protein Albumin Globulin Albumin/Globulin Ratio Alpha Fetoprotein Procalcitonin Urine Color Urine Appearance Urine pH Ur Specific [place] Urine Protein Urine Glucose (UA) Urine Ketones Urine Occult Blood Urine Nitrate Urine Bilirubin Urine Urobilinogen Ur Leukocyte Esterase Urine RBC Urine WBC Ur Squamous Epith Cells Urine Bacteria Ur Culture Indicated? Fluid Color Yellow Fluid Appearance Slightly cloudy Fluid RBC 347 Fld Tot Nucleated Cell 140 Fluid Polynuclear WBCs 3 Fluid Mononuclear WBCs 95 Fluid Eosinophils 2 Fluid Other Cells Not Reportable Body Fluid Clot No clots present Fluid Albumin < 1.0 11/23/20 11/23/20 11/23/20 04:43 04:43 04:43 WBC RBC Hgb Hct MCV MCH MCHC RDW Plt Count Neut % (Auto) Lymph % (Auto) Hall % (Auto) Eos % (Auto) Baso % (Auto) Lymph # (Auto) Hall # (Auto) Baso # (Auto) Total Counted Seg Neutrophils % Lymphocytes % (Manual) Monocytes % (Manual) Eosinophils % (Manual) Basophils % (Manual) Neutrophils # (Manual) RBC Morphology Hypochromasia Anisocytosis Macrocytosis PT 16.7 H INR 1.5 H Sodium 129 L Potassium 4.8 Chloride 100 Carbon Dioxide 31 BUN 37 H Creatinine 1.45 H Estimated GFR 49.2 L BUN/Creatinine Ratio 25.5 H Glucose 140 H Calcium 9.2 Total Bilirubin 6.4 H AST 63 H ALT 47 Alkaline Phosphatase 148 H Troponin I 0.026 Total Protein 6.5 Albumin 2.5 L Globulin 4.0 Albumin/Globulin Ratio 0.6 L Alpha Fetoprotein Procalcitonin Urine Color Urine Appearance Urine pH Ur Specific [place] Urine Protein Urine Glucose (UA) Urine Ketones Urine Occult Blood Urine Nitrate Urine Bilirubin Urine Urobilinogen Ur Leukocyte Esterase Urine RBC Urine WBC Ur Squamous Epith Cells Urine Bacteria Ur Culture Indicated? Fluid Color Fluid Appearance Fluid RBC Fld Tot Nucleated Cell Fluid Polynuclear WBCs Fluid Mononuclear WBCs Fluid Eosinophils Fluid Other Cells Body Fluid Clot Fluid Albumin PFSH Medical History (Updated 11/22/20 @ 12:20 by Arnulfo Bird DO) Anasarca Ascites Asthma Elevated brain natriuretic peptide (BNP) level Hepatitis C Hypertension Liver cancer Liver cirrhosis Surgical History History of surgery of liver Family History Father Trauma Mother Sjogrens syndrome Sister No significant medical problems Social History household members: spouse Smoking Status: Former smoker alcohol intake: former Assessment & Plan Assessment & Plan narrative: Patient is a 65-year-old male with chronic hep C cirrhosis, ascites, history of resection of hepatocellular carcinoma, chronic kidney disease, asthma sent to emergency department for acute confusion. 1. Acute hepatic encephalopathy -patient presenting with acute confusion which appears due to decompensated cirrhosis, improving today with lactulose. ammonia level 43, WBC normal -patient with improvement after IV fluid bolus and lactulose in the ED -ultrasound-guided diagnostic paracentesis negative for SBP. -blood culture x2 sent through ED, currently negative. -urinalysis with hematuria but no evidence of infection. -continue lactulose 20 g b.i.d., titrate to 2-3 BMs daily. 2. Acute decompensated hepatitis-C cirrhosis -total bilirubin 6.2, this is significant increase compared to bili of 1.6 on 11/07/2020, and additionally he is more thrombocytopenic, however INR 1.5 is stable relative to previous values -reason for liver decompensation is unclear, rule out infection such as SBP, rule out recurrence of hepatocellular carcinoma. Check abdominal ultrasound to eval for PVT or biliary obstruction. -CT abdomen and pelvis: severe cirrhosis, moderate ascites, portal hypertension with large venous collateral pathways through periumbilical vein extending to lower right pelvis then cephalad through common femoral and external iliac vein -chest CTA shows patchy alveolitis left lower lobe although patient without symptoms of pneumonia -patient sees Dr. Johann Tamayo at [facility], Dr. Eubanks spoke to Dr. Tamayo, who recommended ruling out SBP or other infection and checking AFP (note Dr. tamayo is leaving [facility] and patient will have need to establish with new provider at the liver clinic) which were bother performed and unremarkable. -AFP 1.7, per records at [facility], patient's last AFP was 3.1 3. Cirrhotic ascites -patient has moderate ascites on CT and mild edema in legs which seems stable -continue bumetanide 2 mg daily and spironolactone 100 mg daily 4. Chronic kidney disease -patient with stable creatinine, no evidence of hepatorenal syndrome 4. Opioid dependency -patient states he has been taking 4 oxycodone a day for the past few months, started after fell down a flight of stairs and injured ribs, but continued for chronic pain in the right knee, previous x-rays of the knee show tricompartmental arthritis -reviewed with patient narcotic pain relievers are not considered good long-term medications for arthritis pain, even with his liver disease he can take low doses of Tylenol such as 325 mg 4 times daily, use topical analgesics such as diclofenac, and other modalities such as ice/heat -patient agreeable to stopping oxycodone especially in light of worsening liver function and risk for accumulation and contributing to confusion
--- NOTE | 2020-11-23 15:37 | DI.US.S_ITS ---
PROCEDURE: US ABDOMEN LIMITED INDICATIONS: eval biliary tree and Doppler for ? PVT given elevated bili TECHNIQUE: Real-time focused scanning was performed of the abdomen, with image documentation. COMPARISON: [facility], , ABDOMEN LIMITED, 03/07/2020, 11:56. FINDINGS: A cirrhotic appearing liver is seen, with a lobulated margin. The left lobe of the liver is not seen on this study. The liver demonstrates a coarsened, heterogeneous echotexture. The main portal vein measures 1.7 cm and is patent. It demonstrates normal appearing, hepatopetal flow. The gallbladder is not well seen. Several stones are seen measuring approximately 5 mm. No findings of gallstones or sludge are seen. The gallbladder wall is not thickened, measuring 3 mm or less. There is pericholecystic fluid The sonographic Cain sign is negative. There is no biliary dilatation, the common bile duct measures 5-6 mm. The pancreas is not well seen. Moderate ascites is seen. This study is limited by body habitus. IMPRESSION: Cirrhotic liver with ascites. Patent portal vein, with normal hepatopetal flow. Gallstones are seen. No additional signs of cholecystitis are seen. The pericholecystic fluid is nonspecific in this patient with more generalized ascites. Dictated by: Tavares Altamirano M.D. on 11/23/2020 at 15:28 Approved by: Tavares Altamirano M.D. on 11/23/2020 at 15:30
[2020-11-23] MEDS: INFLUENZA VACCINE 0.5 ML SYRINGE IM (15:38)
[2020-11-23] MEDS: CALCIUM CARBONATE 500 MG TAB PO ×3 (16:22→22:45)
--- NOTE | 2020-11-23 16:53 | PC.NURSE ---
Addendum entered by Janice Riddle R.N. 11/23/20 22:38: Pt continues to c/o generalized achiness and restlessness. This has been the pt's status all evening shift. Up frequently to toilet. Bladder scanned post void for 4 cc's. Pt admits to feeling as though bladder is emptying entirely with each void. Measuring device placed into pt's toilet to measure. Returned to bed and warm blankets for comfort. Addendum entered by Janice Riddle R.N. 11/23/20 20:49: Pt remains in and out of bed frequently. Restless, fidgety. C/o vague aches and pains and nausea resolved s/p zofran. Pt does state feels as though is coming off of oxycodone. BHUPINDER Gigi was informed of this statement by patient. Addendum entered by Janice Riddle R.N. 11/23/20 19:22: Denies knee pain and declines offers for diclofenac topical cream to right knee. Addendum entered by Janice Riddle R.N. 11/23/20 19:05: Has requested Tums for nausea and now states no relief. Dr. Bolaños informed and zofran ordered. Addendum entered by Janice Riddle R.N. 11/23/20 18:17: Pt frequently moving between chair and bed. Calls staff appropriately for assistance. Reports no relief in neck cramping. Pt then states desire to return to bed from chair. This was done. Warm blanket wrapped around pt's neck and pt positions self for comfort in bed. Declines knee pain. Original Note: Pt restless in bed @ beginning of shift. Moves all extremities independently. Pt is jaundiced. C/o neck pain 5/10 and was given single tylenol as ordered. Pt also c/o upset stomach and requests Tums. Discussion with Dr. Bolaños by this marketing underwriter and order obtained. Tums given to pt. Pt also confirms desires to receive flu vaccine. Information sheet provided to pt and pt reports has received vaccine on previous occasions. Vaccination given in right deltoid. Abdominal ultrasound completed this evening shift. Pt demonstrates appropriate mentation and conversation.
[2020-11-23] MEDS: ONDANSETRON 4 MG/2 ML INJ IV (19:29)
[2020-11-23] MEDS: LORazepam 0.5 MG TABLET PO (21:16)
[2020-11-24] VITALS: O2SAT 97
[2020-11-24 04:00] VITALS: BP 123/58; PULSE 81; RESP 16; TEMP 36.9; O2SAT 96; O2SAT 97
[2020-11-24] MEDS: ACETAMINOPHEN 325 MG TABLET PO ×2 (05:17→10:20)
[2020-11-24 08:00] VITALS: BP 135/77; PULSE 80; RESP 18; TEMP 36.6; O2SAT 99
[2020-11-24] MEDS: BUMETANIDE 1 MG TABLET 2 MG PO (08:28)
[2020-11-24] MEDS: SPIRONOLACTONE 25 MG TABLET 100 MG PO (08:29)
[2020-11-24] MEDS: DICLOFENAC 1% GEL 100 GM 1 APPLIC TOP (08:29)
[2020-11-24] MEDS: LACTULOSE 20 GM/30 ML SOLUTION PO (08:29)
[2020-11-24] MEDS: CALCIUM CARBONATE 500 MG TAB PO (10:37)
--- NOTE | 2020-11-24 10:42 | CM.DPC ---
DCP Discharge Home Per MD, pt remains medically stable to d/c home with spouse today and no identified barriers. SW met bedside with pt and explained role and he confirms that he is aware MD plans to discharge him and pt is agreeable with calling his spouse Tayler to see if she can transport him today home now that there is less snow on the ground. Tayler confirms that she can get out of the driveway with snow and roads are bare and she will be able to leave [place] soon this morning and will be bedside for d/c instructions and agreeable with transporting pt home today. SW provided pt's Medicare Rights and pt and spouse gave verbal signature on IMM. SW updated RN and MD and pt agreeable with getting settled in at home today. Plan: Patient to d/c home today via spouse POV and no further SW needs at this time. Marie Olsen MSW
--- NOTE | 2020-11-24 11:19 | P.DS_ITS ---
History of Present Illness History of Present Illness Date Patient Seen: 11/24/20 Time Patient Seen: 10:50 Chief complaint: cold,confusion,coughing blood Discharge Providers Provider Date of admission: 11/22/20 12:21 Discharge Date: 11/24/20 Primary care physician: Pancho Payan MD Discharge provider: Wero Bolaños DO Summary Hospital Course Discharge Diagnosis: Please see hospital course by problem list noted below. Hospital Course: Patient is a 65-year-old male with chronic hep C cirrhosis, ascites, history of resection of hepatocellular carcinoma, chronic kidney disease, asthma sent to emergency department for acute confusion. Admitted for hepatic encephalopathy, no acute causes found. Improved with lactulose thearpy and discharged home with recommendations to follow up with his dentofacial orthopedics dentist at [facility]. 1. Acute hepatic encephalopathy -patient presented with acute confusion which appeared due to decompensated cirrhosis, improved today with lactulose. ammonia level 43 on admission, WBC normal -ultrasound-guided diagnostic paracentesis negative for SBP. -blood culture x2 sent through ED, currently negative. -urinalysis with hematuria but no evidence of infection. -continue lactulose 20 g b.i.d., titrate to 2-3 BMs daily. 2. Acute decompensated hepatitis-C cirrhosis -total bilirubin 6.2, this is significant increase compared to bili of 1.6 on 11/07/2020, and additionally he is more thrombocytopenic, however INR 1.5 is stable relative to previous values -reason for liver decompensation is unclear, ruled out infection such as SBP, ruled out recurrence of hepatocellular carcinoma. Abdominal ultrasound to eval for PVT or biliary obstruction was negative. -CT abdomen and pelvis: severe cirrhosis, moderate ascites, portal hypertension with large venous collateral pathways through periumbilical vein extending to lower right pelvis then cephalad through common femoral and external iliac vein -chest CTA shows patchy alveolitis left lower lobe although patient without symptoms of pneumonia -patient sees Dr. Johann Tamayo at [facility], Dr. Eubanks spoke to Dr. Tamayo, who recommended ruling out SBP or other infection and checking AFP (note Dr. tamayo is leaving [facility] and patient will have need to establish with new provider at the liver clinic) which were both performed and unremarkable. -AFP 1.7, per records at [facility], patient's last AFP was 3.1 3. Cirrhotic ascites -patient has moderate ascites on CT and mild edema in legs which seems stable -continued bumetanide 2 mg daily and spironolactone 100 mg daily 4. Chronic kidney disease -patient with stable creatinine, no evidence of hepatorenal syndrome 5. Opioid dependency -patient states he has been taking 4 oxycodone a day for the past few months, started after fell down a flight of stairs and injured ribs, but continued for chronic pain in the right knee, previous x-rays of the knee show tricompartmental arthritis -reviewed with patient narcotic pain relievers are not considered good long-term medications for arthritis pain, even with his liver disease he can take low doses of Tylenol such as 325 mg 4 times daily, use topical analgesics such as diclofenac, and other modalities such as ice/heat -patient agreeable to stopping oxycodone especially in light of worsening liver function and risk for accumulation and contributing to confusion 6. Microscopic hematuria, present on admission - recommend outpatient urology referral for further evaluation if desired. Dispo: discharged home Status at Discharge Cognitive/behavioral status at discharge: oriented Overall status at discharge: patient is progressing back to baseline Exam Vital Signs (past 8 hours): - 11/24/20 04:00 11/24/20 08:00 Temperature 98.4 F 97.8 F Pulse Rate 81 80 Respiratory Rate 16 18 Blood Pressure 123/58 L 135/77 Pulse Oximetry 96 99 Oxygen Delivery Method Room Air Oxygen Flow Rate 0 Narrative Exam Narrative: General: Alert and conversant male in no acute distress. HEENT: Jaundiced, pupils equal, EOMI. Breath smells of fetor hepaticus. Neck: No lymphadenopathy, supple, trachea midline. Lungs: Clear to auscultation bilaterally without wheezing, rhonchi, rales. Heart: Regular rhythm without murmur Abdomen: Soft, nontender Extremities: R>L 1 to 2+ pitting edema, mild venous stasis changes on the right, there is no redness, tenderness or acute swelling of the knee joints Neurological: Affect normal, speech normal, oriented x3, no asterixis, nonfocal exam improved confusion compared to previous day. Objective Labs Result Diagrams: 11/23/20 04:43 11/23/20 04:43 [facility] Medical History (Updated 11/22/20 @ 12:20 by Arnulfo Bird DO) Anasarca Ascites Asthma Elevated brain natriuretic peptide (BNP) level Hepatitis C Hypertension Liver cancer Liver cirrhosis Surgical History History of surgery of liver Family History Father Trauma Mother Sjogrens syndrome Sister No significant medical problems Social History household members: spouse Smoking Status: Former smoker alcohol intake: former Discharge Plan Discharge Plan Patient Disposition: Home Provider Discharge Comment: You were admitted to the hospital with hepatic encephalopathy. Your cirrhosis seems to be worsening slightly but no acute cause could be found. Ultrasound was negative for clot, there was no evidence of a gallstone blocking the liver ducts, and your AFP level was improved from previous testing (for HCC testing). Please call your liver specialist early next week to go over current therapies and to see if there is any additional management options. Your bilirubin was 6.4. Please take lactulose at home, titrate to 2-3 bowel movements a day. Discharge orders & Medications Prescriptions: New diclofenac sodium [Voltaren] 1 % Gel 1 ea topical QID PRN (Reason: pain (scale score 1-3)) 30 Days Qty: 100 RF: 0 lactulose 20 gram/30 mL Solution 20 g PO BID 30 Days Qty: 1800 RF: 0 Continued albuterol sulfate 90 mcg/actuation aerosol powdr breath activated 2 inhalation INHALATION Q4-6H PRN (Reason: shortness of breath or wheezing) Qty: 1 RF: 6 spironolactone 50 mg tablet 100 mg PO DAILY RF: 0 bumetanide 2 mg Tablet 2 mg PO DAILY RF: 0 calcium carbonate 500 mg calcium (1,250 mg) Tablet,Chewable 500 mg PO DAILY PRN (Reason: (Drug) Ingestion) RF: 0 Discontinued oxycodone 5 mg tablet 5 mg PO Q6H PRN (Reason: pain) Qty: 14 RF: 0 Follow up/Referrals: Pancho Payan MD [Primary Care Provider] - Diet/Activity/Treatments Diet: Diet as Tolerated Activity: As tolerated Discharge Data Primary Care Provider: Pancho Payan
[2020-11-24 12:00] VITALS: BP 128/60; PULSE 81; RESP 17; TEMP 36.5; O2SAT 99
== END 2020-11-24 12:34 | disposition home or self-care (01) | DRG 442 ==
LOC: ED 12:20 → AC 12:34
PROVIDERS: Nurse Practitioner Family; Admitting Provider Internal Medicine; Emergency Provider Emergency Medicine; PCP Internal Medicine; Referring Provider Emergency Medicine; Visit Provider Internal Medicine
DX: K72.00 Acute and subacute hepatic failure without coma (principal); R18.8 Other ascites; K76.6 Portal hypertension; F11.20 Opioid dependence, uncomplicated; B18.2 Chronic viral hepatitis C; K74.60 Unspecified cirrhosis of liver; D69.59 Other secondary thrombocytopenia; N18.9 Chronic kidney disease, unspecified; Z85.05 Personal history of malignant neoplasm of liver; Z87.891 Personal history of nicotine dependence; R79.1 Abnormal coagulation profile; R93.1 Abnormal findings on diagnostic imaging of heart and coronary circulation
CPT/HCPCS: 36415; 49083; 70450; 71045; 71275; 74177; 76705; 80053; 81001; 82042; 82105; 82140; 82550; 82728; 83605; 83615; 83690; 83735; 83880; 84145; 84484; 85007; 85025; 85379; 85610; 85730; 86140; 87040; 87070; 87075; 87205; 87635; 89051; 90471; 90656; 93005; 93010; 96360; 99285; C9803; G0378; A9270; J2405; Q2038; Q9967

== ENCOUNTER 2020-12-10 12:17 | Inpatient (IN) | payer MEDICARE, MEDICAID, SELFPAY ==
[2020-11-22 13:46] VITALS: BMI 37.3
[2020-12-10] VITALS (136 sets, daily range): BP systolic 112–246; BP diastolic 55–136; PULSE 90–126; RESP 16–68; TEMP 36.6–36.8; O2SAT 82–100; BMI 35.0
[2020-12-10] MEDS: diphenhydrAMINE 50 MG/ML VIAL IM (12:30)
[2020-12-10] MEDS: LORazepam 2 MG/ML INJ IM ×2 (12:30→12:58)
[2020-12-10] MEDS: HALOPERIDOL 5 MG/ML VIAL IM (12:30)
--- NOTE | 2020-12-10 12:47 | ED_ITS ---
HPI - Altered Mental Status General Chief Complaint: Altered Mental Status Stated Complaint: Confusion Time Seen by Provider: 12/10/20 12:17 Source: EMS History of Present Illness HPI narrative: Patient brought in by EMS from home for altered mental status. Family found him in bed. Confused and writhing in bed. No known injury or fall. Patient seen here 3 weeks ago for. Patient has history liver failure/cirrhosis. Per EMS no alcohol or drug use. Blood sugar 137. Patient is confused. Moving arms and pulling at the bed rails. Requiring soft restraints on the wrists until medications available intramuscular to help calm patient. Patient is only responsive to his name. complaint: altered mental status Related Data Home Medications Medication Instructions Recorded Confirmed spironolactone 100 mg PO DAILY 04/15/20 12/10/20 bumetanide 2 mg PO DAILY 11/22/20 12/10/20 calcium carbonate 500 mg PO DAILY PRN 11/23/20 12/11/20 Previous Rx's Medication Instructions Recorded albuterol sulfate 90 mcg/actuation 2 inhalation INHALATION Q4-6H PRN 01/23/20 breath activated powder inhaler #1 each diclofenac sodium [Voltaren] 1 ea TOPICAL QID PRN 30 Days #100 g 11/24/20 lactulose 20 g PO BID 30 Days #1800 ml 11/24/20 Allergies Allergy/AdvReac Type Severity Reaction Status Date / Time No Known Drug Allergies Allergy Verified 11/22/20 10:26 Review of Systems Review of Systems ROS Unobtainable: All systems reviewed & are unremarkable except as noted in HPI and below and Unobtainable due to mental status/LOC Patient History Medical History Anasarca Ascites Asthma Elevated brain natriuretic peptide (BNP) level Hepatitis C Hypertension Liver cancer Liver cirrhosis Surgical History History of surgery of liver Family History Father Trauma Mother Sjogrens syndrome Sister No significant medical problems Social History household members: spouse Smoking Status: Former smoker alcohol intake: former Smoking Status: Former smoker alcohol intake frequency: 0-2 drinks per day Substance Use Type: marijuana Exam Narrative Exam Narrative: GENERAL: in no distress, not toxic not dyspneic, is confused. Repeating same questions HEAD: Normocephalic. EYES: Pupils equal round No scleral icterus. No injection no discharge, no icterus ENT: Mucous membranes moist. NECK: Trachea midline. CARDIOVASCULAR: Regular rate and rhythm without murmurs RESPIRATORY: Clear to auscultation. Breath sounds equal bilaterally. No wheezes, rales, or rhonchi. GASTROINTESTINAL: Abdomen soft, non-tender EXTREMITIES: No gross deformities. BACK: No flank tenderness. NEURO: AOx4. SKIN: Warm and dry not jaundice PSYCH: Patient confused. Repeating questions. Moving arms and legs/reaching for bed rails. Patient require soft restraints for IV access and prevention of self-harm or to others. Patient is not violent Initial Vital Signs Initial Vital Signs: Vital Signs Pulse Rate 114 H 12/10/20 12:54 Respiratory Rate 25 H 12/10/20 12:54 Pulse Oximetry 86 L 12/10/20 12:54 Course Course Course Narrative: Patient requires intubation for proper care evaluation imaging and prevent harming himself or staff. Decision to Admit Date: 12/10/20 Decision to Admit time: 16:35 Orders Ordered: Albuterol/Ipratropium (Albuterol/Ipratropium 3 Ml Ampul) 3 ml INH RTQ4HR PRN PRN Reason: Shortness Of Breath Propofol (Propofol) 1,000 mg in 100 mls @ 3.39 mls/hr IV TITRATE TIERNEY; Protocol Last Admin: 12/11/20 09:26 Dose: 10 mcg/kg/min, 6.78 mls/hr Documented by: Titration: 12/11/20 09:20 Dose: 0 mcg/kg/min, 0 mls/hr Documented by: Titration: 12/11/20 08:45 Dose: 10 mcg/kg/min, 6.78 mls/hr Documented by: Titration: 12/11/20 05:00 Dose: 15 mcg/kg/min, 10.17 mls/hr Documented by: Titration: 12/11/20 02:30 Dose: 10 mcg/kg/min, 6.78 mls/hr Documented by: Admin: 12/11/20 00:48 Dose: 15 mcg/kg/min, 10.17 mls/hr Documented by: Titration: 12/11/20 00:48 Dose: 15 mcg/kg/min, 10.17 mls/hr Documented by: Titration: 12/11/20 00:00 Dose: 15 mcg/kg/min, 10.17 mls/hr Documented by: Titration: 12/10/20 18:53 Dose: 10 mcg/kg/min, 6.78 mls/hr Documented by: Titration: 12/10/20 18:39 Dose: 7 mcg/kg/min, 4.746 mls/hr Documented by: Titration: 12/10/20 17:26 Dose: 0 mcg/kg/min, 0 mls/hr Documented by: Titration: 12/10/20 16:25 Dose: 8 mcg/kg/min, 5.424 mls/hr Documented by: Titration: 12/10/20 15:00 Dose: 10 mcg/kg/min, 6.78 mls/hr Documented by: Admin: 12/10/20 14:22 Dose: 5 mcg/kg/min, 3.39 mls/hr Documented by: JARRELL Sodium Chloride (Normal Saline 0.9%) 1,000 mls @ 100 mls/hr IV CONT TIERNEY Last Admin: 12/11/20 04:20 Dose: 100 mls/hr Documented by: Infusion: 12/11/20 04:03 Dose: 100 mls/hr Documented by: Admin: 12/10/20 18:03 Dose: 100 mls/hr Documented by: MINOR Fentanyl 1,000 mcg/ Dextrose 270 mls @ 21.357 mls/hr IV TITRATE TIERNEY; Protocol Last Titration: 12/11/20 08:45 Dose: 0.5 mcg/kg/hr, 15.255 mls/hr Documented by: Titration: 12/11/20 05:00 Dose: 0.6 mcg/kg/hr, 18.306 mls/hr Documented by: Admin: 12/11/20 04:21 Dose: 0.9 mcg/kg/hr, 27.459 mls/hr Documented by: Titration: 12/11/20 04:21 Dose: 0.9 mcg/kg/hr, 27.459 mls/hr Documented by: Titration: 12/10/20 22:56 Dose: 0.9 mcg/kg/hr, 27.459 mls/hr Documented by: Titration: 12/10/20 19:55 Dose: 0.8 mcg/kg/hr, 24.408 mls/hr Documented by: Admin: 12/10/20 18:03 Dose: 0.7 mcg/kg/hr, 21.357 mls/hr Documented by: MINOR Lactulose (Lactulose 20 Gm/30 Ml Solution) 20 gm PO BID [facility] Last Admin: 12/11/20 08:25 Dose: 20 gm Documented by: RICARDO Stored In Pharmacy 1 each PO PRN PRN PRN Reason: PROTOCOL Pantoprazole Sodium (Pantoprazole 40 Mg Vial) 40 mg IV BID [facility] Last Admin: 12/11/20 08:25 Dose: 40 mg Documented by: Admin: 12/10/20 21:58 Dose: 40 mg Documented by: MINOR Discontinued Medications Albuterol/Ipratropium (Albuterol/Ipratropium 3 Ml Ampul) 3 ml INH RTQ4HR [facility] Last Admin: 12/10/20 23:11 Dose: 3 ml Documented by: Admin: 12/10/20 19:34 Dose: 3 ml Documented by: SHANEKA Diphenhydramine HCl (Diphenhydramine 50 Mg/Ml Vial) 50 mg IM NOW ONE Stop: 12/10/20 12:22 Last Admin: 12/10/20 12:30 Dose: 50 mg Documented by: JARRELL Etomidate (Etomidate 2 Mg/Ml 10 Ml Vial) 10 mg IV NOW ONE Stop: 12/10/20 13:52 Last Admin: 12/10/20 15:37 Dose: Not Given Documented by: JARRELL Haloperidol (Haloperidol 5 Mg/Ml Vial) 5 mg IM NOW ONE Stop: 12/10/20 12:23 Last Admin: 12/10/20 12:30 Dose: 5 mg Documented by: JARRELL Sodium Chloride (Normal Saline 0.9%) 1,000 mls @ 1,000 mls/hr IV BOLUS ONE Stop: 12/10/20 17:11 Last Infusion: 12/10/20 17:28 Dose: 0 mls/hr Documented by: Admin: 12/10/20 16:25 Dose: 1,000 mls/hr Documented by: JARRELL Piperacillin/Tazobactam/Dextrose (Zosyn) 3.375 gm in 50 mls @ 100 mls/hr IV NOW ONE Stop: 12/10/20 16:42 Last Infusion: 12/10/20 17:28 Dose: 0 mls/hr Documented by: Admin: 12/10/20 16:46 Dose: 100 mls/hr Documented by: JARRELL Lactulose (Lactulose 20 Gm/30 Ml Solution) 20 gm AK NOW ONE Stop: 12/10/20 17:26 Last Admin: 12/10/20 20:20 Dose: 20 gm Documented by: MINOR Lorazepam (Lorazepam 2 Mg/Ml Inj) 2 mg IM NOW ONE Stop: 12/10/20 12:22 Last Admin: 12/10/20 12:30 Dose: 2 mg Documented by: JARRELL Lorazepam (Lorazepam 2 Mg/Ml Inj) 2 mg IM NOW ONE Stop: 12/10/20 12:55 Last Admin: 12/10/20 12:58 Dose: 2 mg Documented by: JARRELL Lorazepam (Lorazepam 2 Mg/Ml Inj) 4 mg IV NOW ONE Stop: 12/10/20 13:19 Last Admin: 12/10/20 13:30 Dose: 4 mg Documented by: JARRELL Propofol (Propofol 200 Mg/20 Ml Vial) 120 mg IV NOW ONE Stop: 12/10/20 15:11 Last Admin: 12/10/20 14:15 Dose: 120 mg Documented by: JARRELL Succinylcholine Chloride (Succinylcholine 200 Mg/10 Ml Vial) 100 mg IV NOW ONE Stop: 12/10/20 15:16 Last Admin: 12/10/20 14:16 Dose: 100 mg Documented by: JARRELL Reevaluation(s) Reevaluation #1: Current late restraints are removed. Patient is not combative. Time: 16:38 Consultations Consultation #1: Spoke with hospitalist, Dr. Bolaños, will admit. Time: 16:38 Vital Signs Vital signs: Vital Signs - 8 hr 12/10/20 12:54 12/10/20 12:55 12/10/20 13:00 Pulse Rate 114 H 116 H 113 H Respiratory Rate 25 H 25 H 35 H Blood Pressure 188/95 H Pulse Oximetry 86 L 85 L 100 12/10/20 13:01 12/10/20 13:05 12/10/20 13:10 Pulse Rate 118 H 119 H 119 H Respiratory Rate 29 H 32 H 36 H Blood Pressure 183/90 H 199/91 H 196/79 H Pulse Oximetry 100 82 L 12/10/20 13:15 12/10/20 13:20 12/10/20 13:25 Pulse Rate 113 H 111 H 116 H Respiratory Rate 22 21 31 H Blood Pressure 196/84 H 194/88 H 192/86 H Pulse Oximetry 100 100 100 12/10/20 13:30 12/10/20 13:37 12/10/20 13:41 Pulse Rate 116 H 115 H 117 H Respiratory Rate 26 H 25 H 29 H Blood Pressure 194/84 H 194/79 H 206/136 H Pulse Oximetry 100 100 100 12/10/20 13:45 12/10/20 13:55 12/10/20 14:00 Pulse Rate 117 H 121 H 124 H Respiratory Rate 30 H 50 H 56 H Blood Pressure 186/103 H 214/102 H 210/100 H Pulse Oximetry 99 100 100 12/10/20 14:05 12/10/20 14:10 12/10/20 14:14 Pulse Rate 123 H 122 H 125 H Respiratory Rate 54 H 32 H 54 H Blood Pressure 246/112 H 240/108 H 227/90 H Pulse Oximetry 100 98 100 12/10/20 14:15 12/10/20 14:20 12/10/20 14:25 Pulse Rate 124 H 118 H 117 H Respiratory Rate 68 H 16 16 Blood Pressure 225/104 H 212/98 H 209/95 H Pulse Oximetry 100 100 90 L 12/10/20 14:30 12/10/20 14:35 12/10/20 14:40 Pulse Rate 116 H 117 H 118 H Respiratory Rate 22 24 28 H Blood Pressure Pulse Oximetry 95 100 100 12/10/20 14:42 12/10/20 14:45 12/10/20 14:50 Pulse Rate 120 H 119 H 118 H Respiratory Rate 29 H 33 H 34 H Blood Pressure 182/92 H Pulse Oximetry 100 100 100 12/10/20 14:55 12/10/20 15:00 12/10/20 15:01 Pulse Rate 120 H 121 H 121 H Respiratory Rate 30 H 27 H 28 H Blood Pressure 176/85 H Pulse Oximetry 100 100 100 12/10/20 15:05 12/10/20 15:10 12/10/20 15:15 Pulse Rate 122 H 123 H 124 H Respiratory Rate 29 H 26 H 29 H Blood Pressure 163/73 H 170/77 H 166/77 H Pulse Oximetry 100 100 100 12/10/20 15:20 12/10/20 15:23 12/10/20 15:25 Pulse Rate 125 H 125 H 125 H Respiratory Rate 28 H 29 H 29 H Blood Pressure 178/93 H 175/81 H Pulse Oximetry 100 100 99 12/10/20 15:30 12/10/20 15:34 12/10/20 15:35 Pulse Rate 126 H 125 H 125 H Respiratory Rate 31 H 28 H 26 H Blood Pressure 161/80 H 152/77 H 162/80 H Pulse Oximetry 99 100 100 12/10/20 15:40 12/10/20 15:45 12/10/20 15:49 Pulse Rate 123 H 123 H 123 H Respiratory Rate 27 H 27 H 27 H Blood Pressure 153/77 H 157/75 H Pulse Oximetry 100 100 100 12/10/20 15:50 Pulse Rate Respiratory Rate Blood Pressure 158/77 H Pulse Oximetry MDM - Altered Mental Status Differential Diagnosis Differential diagnosis: Likely altered mental status, delirium, hypoglycemia, hyponatremia, other (Hepatic encephalopathy) and subarachnoid hemorrhage Medical Records Attestation: I reviewed the patient's medical records. Lab Data Attestation: I reviewed the patient's lab results. Result diagrams: 12/11/20 04:35 12/11/20 04:35 Labs: Lab Results 12/10/20 12/10/20 12/10/20 Range/Units 13:15 13:15 13:15 WBC 8.7 (4.5-11.0) X10^3/uL RBC 3.33 L (4.5-5.9) X10^6/uL Hgb 11.1 L (13.5-17.5) g/dL Hct 32.7 L (41-53) % MCV 98.2 (80-100) fL MCH 33.4 (26-34) PG MCHC 34.0 (30-36) % RDW 16.5 H (11.6-14.8) % Plt Count 77 L (150-400) X10^3/uL Neut % (Auto) 80.7 H (50-75) % Lymph % (Auto) 4.3 L (25-40) % Mcleod % (Auto) 13.8 (3-14) % Eos % (Auto) 0.5 L (2-4) % Baso % (Auto) 0.7 (0-2) % Neut # (Auto) 7000 (6490-4479) /uL Lymph # (Auto) 400 L (3729-3824) /uL Mcleod # (Auto) 1200 H (0-900) /uL Eos # (Auto) 0 (0-450) /uL Baso # (Auto) 100 (0-100) /uL PT 15.7 H (10.1-12.7) SECONDS INR 1.4 H (0.9-1.3) APTT 35 (26.4-36.2) SECONDS ABG pH (7.35-7.45) ABG pCO2 (35-45) mmHg ABG pO2 (80-100) mmHg ABG HCO3 (22-26) mmol/L ABG Total CO2 (21-31) mmol/L ABG O2 Saturation (95-100) % ABG Base Excess (-2-2) mmol/L FiO2 Sodium (137-145) mmol/L Potassium (3.4-5.1) mmol/L Chloride (98-107) mmol/L Carbon Dioxide (22-32) mmol/L BUN (9-20) mg/dL Creatinine (0.66-1.25) mg/dL Estimated GFR (>60) mL/min BUN/Creatinine Ratio (6-22) Glucose (80-110) mg/dL Lactate (0.7-2.1) mmol/L Calcium (8.4-10.2) mg/dL Total Bilirubin (0.2-1.3) mg/dL Conjugated Bilirubin (0.0-0.3) md/dL Unconjugated Bilirubin (0.0-1.1) mg/dL AST (17-59) IU/L ALT (<50) IU/L Alkaline Phosphatase (38-126) U/L Ammonia 81 H (9-30) umol/L Total Creatine Kinase (55-170) U/L CK-MB (CK-2) (<2.37) ng/mL CK-MB (CK-2) Rel Index (1.5-5.0) % Troponin I (0.01-0.034) ng/mL Total Protein (6.3-8.2) g/dL Albumin (3.5-5.0) g/dL Globulin (1.7-4.1) g/dL Albumin/Globulin Ratio (1.0-2.8) TSH (0.47-4.68) uIU/mL Prolactin (3.7-17.9) ng/mL Urine Color Urine Appearance Urine pH (4.5-8.0) Ur Specific [place] (1.000-1.035) Urine Protein (Negative) Urine Glucose (UA) (Negative) g/dL Urine Ketones (NEGATIVE) Urine Occult Blood (Negative) Urine Nitrate (Negative) Urine Bilirubin (NEGATIVE) Urine Urobilinogen (0.2) E.U./dL Ur Leukocyte Esterase (NEGATIVE) Urine RBC (0-5/HPF) Urine WBC (0-5/HPF) Urine Bacteria (None) Ur Culture Indicated? Salicylates (<20) mg/dL U Opiates 300ng/mL cut (Negative) Ur Oxycodone Screen (Negative) Urine Methadone Screen (Negative) Acetaminophen (10-30) ug/mL Ur Barbiturates Screen (Negative) U Tricyclic Antidepress (Negative) Ur Phencyclidine Scrn (Negative) Ur Amphetamines Screen (Negative) U Methamphetamines Scrn (Negative) Ur MDMA Scrn (Ecstasy) (Negative) U Benzodiazepines Scrn (Negative) Urine Cocaine Screen (Negative) U Marijuana (THC) Screen (Negative) Ethyl Alcohol ( - 10) mg/dL SARS-CoV-2 (PCR) (Negative) 12/10/20 12/10/20 12/10/20 Range/Units 13:15 13:15 13:15 WBC (4.5-11.0) X10^3/uL RBC (4.5-5.9) X10^6/uL Hgb (13.5-17.5) g/dL Hct (41-53) % MCV (80-100) fL MCH (26-34) PG MCHC (30-36) % RDW (11.6-14.8) % Plt Count (150-400) X10^3/uL Neut % (Auto) (50-75) % Lymph % (Auto) (25-40) % Mcleod % (Auto) (3-14) % Eos % (Auto) (2-4) % Baso % (Auto) (0-2) % Neut # (Auto) (7584-4806) /uL Lymph # (Auto) (7267-3324) /uL Mcleod # (Auto) (0-900) /uL Eos # (Auto) (0-450) /uL Baso # (Auto) (0-100) /uL PT (10.1-12.7) SECONDS INR (0.9-1.3) APTT (26.4-36.2) SECONDS ABG pH (7.35-7.45) ABG pCO2 (35-45) mmHg ABG pO2 (80-100) mmHg ABG HCO3 (22-26) mmol/L ABG Total CO2 (21-31) mmol/L ABG O2 Saturation (95-100) % ABG Base Excess (-2-2) mmol/L FiO2 Sodium 135 L (137-145) mmol/L Potassium 4.2 (3.4-5.1) mmol/L Chloride 102 (98-107) mmol/L Carbon Dioxide 21 L (22-32) mmol/L BUN 44 H (9-20) mg/dL Creatinine 1.67 H (0.66-1.25) mg/dL Estimated GFR 41.8 L (>60) mL/min BUN/Creatinine Ratio 26.3 H (6-22) Glucose 151 H (80-110) mg/dL Lactate 6.6 H* (0.7-2.1) mmol/L Calcium 9.2 (8.4-10.2) mg/dL Total Bilirubin 4.2 H (0.2-1.3) mg/dL Conjugated Bilirubin 0.0 (0.0-0.3) md/dL Unconjugated Bilirubin 3.5 H (0.0-1.1) mg/dL AST 84 H (17-59) IU/L ALT 50 H (<50) IU/L Alkaline Phosphatase 186 H (38-126) U/L Ammonia (9-30) umol/L Total Creatine Kinase 178 H (55-170) U/L CK-MB (CK-2) 3.23 H (<2.37) ng/mL CK-MB (CK-2) Rel Index 1.8 (1.5-5.0) % Troponin I 0.026 (0.01-0.034) ng/mL Total Protein 7.6 (6.3-8.2) g/dL Albumin 3.2 L (3.5-5.0) g/dL Globulin 4.4 H (1.7-4.1) g/dL Albumin/Globulin Ratio 0.7 L (1.0-2.8) TSH 1.63 (0.47-4.68) uIU/mL Prolactin 42.2 H (3.7-17.9) ng/mL Urine Color Urine Appearance Urine pH (4.5-8.0) Ur Specific [place] (1.000-1.035) Urine Protein (Negative) Urine Glucose (UA) (Negative) g/dL Urine Ketones (NEGATIVE) Urine Occult Blood (Negative) Urine Nitrate (Negative) Urine Bilirubin (NEGATIVE) Urine Urobilinogen (0.2) E.U./dL Ur Leukocyte Esterase (NEGATIVE) Urine RBC (0-5/HPF) Urine WBC (0-5/HPF) Urine Bacteria (None) Ur Culture Indicated? Salicylates < 1.0 (<20) mg/dL U Opiates 300ng/mL cut (Negative) Ur Oxycodone Screen (Negative) Urine Methadone Screen (Negative) Acetaminophen < 10 L (10-30) ug/mL Ur Barbiturates Screen (Negative) U Tricyclic Antidepress (Negative) Ur Phencyclidine Scrn (Negative) Ur Amphetamines Screen (Negative) U Methamphetamines Scrn (Negative) Ur MDMA Scrn (Ecstasy) (Negative) U Benzodiazepines Scrn (Negative) Urine Cocaine Screen (Negative) U Marijuana (THC) Screen (Negative) Ethyl Alcohol < 10 ( - 10) mg/dL SARS-CoV-2 (PCR) (Negative) 12/10/20 12/10/20 12/10/20 Range/Units 13:45 14:50 15:40 WBC (4.5-11.0) X10^3/uL RBC (4.5-5.9) X10^6/uL Hgb (13.5-17.5) g/dL Hct (41-53) % MCV (80-100) fL MCH (26-34) PG MCHC (30-36) % RDW (11.6-14.8) % Plt Count (150-400) X10^3/uL Neut % (Auto) (50-75) % Lymph % (Auto) (25-40) % Mcleod % (Auto) (3-14) % Eos % (Auto) (2-4) % Baso % (Auto) (0-2) % Neut # (Auto) (3060-7027) /uL Lymph # (Auto) (6900-4338) /uL Mcleod # (Auto) (0-900) /uL Eos # (Auto) (0-450) /uL Baso # (Auto) (0-100) /uL PT (10.1-12.7) SECONDS INR (0.9-1.3) APTT (26.4-36.2) SECONDS ABG pH 7.39 (7.35-7.45) ABG pCO2 39.3 (35-45) mmHg ABG pO2 278 H* (80-100) mmHg ABG HCO3 24 (22-26) mmol/L ABG Total CO2 25 (21-31) mmol/L ABG O2 Saturation 100 (95-100) % ABG Base Excess -1.0 (-2-2) mmol/L FiO2 80 Sodium (137-145) mmol/L Potassium (3.4-5.1) mmol/L Chloride (98-107) mmol/L Carbon Dioxide (22-32) mmol/L BUN (9-20) mg/dL Creatinine (0.66-1.25) mg/dL Estimated GFR (>60) mL/min BUN/Creatinine Ratio (6-22) Glucose (80-110) mg/dL Lactate (0.7-2.1) mmol/L Calcium (8.4-10.2) mg/dL Total Bilirubin (0.2-1.3) mg/dL Conjugated Bilirubin (0.0-0.3) md/dL Unconjugated Bilirubin (0.0-1.1) mg/dL AST (17-59) IU/L ALT (<50) IU/L Alkaline Phosphatase (38-126) U/L Ammonia (9-30) umol/L Total Creatine Kinase (55-170) U/L CK-MB (CK-2) (<2.37) ng/mL CK-MB (CK-2) Rel Index (1.5-5.0) % Troponin I (0.01-0.034) ng/mL Total Protein (6.3-8.2) g/dL Albumin (3.5-5.0) g/dL Globulin (1.7-4.1) g/dL Albumin/Globulin Ratio (1.0-2.8) TSH (0.47-4.68) uIU/mL Prolactin (3.7-17.9) ng/mL Urine Color Yellow Urine Appearance Clear Urine pH 5.0 (4.5-8.0) Ur Specific [place] 1.020 (1.000-1.035) Urine Protein 1+ H (Negative) Urine Glucose (UA) Trace H (Negative) g/dL Urine Ketones Negative (NEGATIVE) Urine Occult Blood 3+ H (Negative) Urine Nitrate Negative (Negative) Urine Bilirubin Negative (NEGATIVE) Urine Urobilinogen 0.2 (0.2) E.U./dL Ur Leukocyte Esterase Negative (NEGATIVE) Urine RBC 10-30/hpf H (0-5/HPF) Urine WBC None seen (0-5/HPF) Urine Bacteria None seen (None) Ur Culture Indicated? Cult not indicated Salicylates (<20) mg/dL U Opiates 300ng/mL cut (Negative) Ur Oxycodone Screen (Negative) Urine Methadone Screen (Negative) Acetaminophen (10-30) ug/mL Ur Barbiturates Screen (Negative) U Tricyclic Antidepress (Negative) Ur Phencyclidine Scrn (Negative) Ur Amphetamines Screen (Negative) U Methamphetamines Scrn (Negative) Ur MDMA Scrn (Ecstasy) (Negative) U Benzodiazepines Scrn (Negative) Urine Cocaine Screen (Negative) U Marijuana (THC) Screen (Negative) Ethyl Alcohol ( - 10) mg/dL SARS-CoV-2 (PCR) Negative (Negative) 12/10/20 12/10/20 Range/Units 15:40 15:49 WBC (4.5-11.0) X10^3/uL RBC (4.5-5.9) X10^6/uL Hgb (13.5-17.5) g/dL Hct (41-53) % MCV (80-100) fL MCH (26-34) PG MCHC (30-36) % RDW (11.6-14.8) % Plt Count (150-400) X10^3/uL Neut % (Auto) (50-75) % Lymph % (Auto) (25-40) % [place]cle[place] % (Auto) (3-14) % Eos % (Auto) (2-4) % Baso % (Auto) (0-2) % Neut # (Auto) (8481-6279) /uL Lymph # (Auto) (9496-0292) /uL [place]cle[place] # (Auto) (0-900) /uL Eos # (Auto) (0-450) /uL Baso # (Auto) (0-100) /uL PT (10.1-12.7) SECONDS INR (0.9-1.3) APTT (26.4-36.2) SECONDS ABG pH (7.35-7.45) ABG pCO2 (35-45) mmHg ABG pO2 (80-100) mmHg ABG HCO3 (22-26) mmol/L ABG Total CO2 (21-31) mmol/L ABG O2 Saturation (95-100) % ABG Base Excess (-2-2) mmol/L FiO2 Sodium (137-145) mmol/L Potassium (3.4-5.1) mmol/L Chloride (98-107) mmol/L Carbon Dioxide (22-32) mmol/L BUN (9-20) mg/dL Creatinine (0.66-1.25) mg/dL Estimated GFR (>60) mL/min BUN/Creatinine Ratio (6-22) Glucose (80-110) mg/dL Lactate 4.3 H* (0.7-2.1) mmol/L Calcium (8.4-10.2) mg/dL Total Bilirubin (0.2-1.3) mg/dL Conjugated Bilirubin (0.0-0.3) md/dL Unconjugated Bilirubin (0.0-1.1) mg/dL AST (17-59) IU/L ALT (<50) IU/L Alkaline Phosphatase (38-126) U/L Ammonia (9-30) umol/L Total Creatine Kinase (55-170) U/L CK-MB (CK-2) (<2.37) ng/mL CK-MB (CK-2) Rel Index (1.5-5.0) % Troponin I (0.01-0.034) ng/mL Total Protein (6.3-8.2) g/dL Albumin (3.5-5.0) g/dL Globulin (1.7-4.1) g/dL Albumin/Globulin Ratio (1.0-2.8) TSH (0.47-4.68) uIU/mL Prolactin (3.7-17.9) ng/mL Urine Color Urine Appearance Urine pH (4.5-8.0) Ur Specific [place] (1.000-1.035) Urine Protein (Negative) Urine Glucose (UA) (Negative) g/dL Urine Ketones (NEGATIVE) Urine Occult Blood (Negative) Urine Nitrate (Negative) Urine Bilirubin (NEGATIVE) Urine Urobilinogen (0.2) E.U./dL Ur Leukocyte Esterase (NEGATIVE) Urine RBC (0-5/HPF) Urine WBC (0-5/HPF) Urine Bacteria (None) Ur Culture Indicated? Salicylates (<20) mg/dL U Opiates 300ng/mL cut Negative (Negative) Ur Oxycodone Screen Negative (Negative) Urine Methadone Screen Negative (Negative) Acetaminophen (10-30) ug/mL Ur Barbiturates Screen Negative (Negative) U Tricyclic Antidepress Negative (Negative) Ur Phencyclidine Scrn Negative (Negative) Ur Amphetamines Screen Negative (Negative) U Methamphetamines Scrn Negative (Negative) Ur MDMA Scrn (Ecstasy) Negative (Negative) U Benzodiazepines Scrn Negative (Negative) Urine Cocaine Screen Negative (Negative) U Marijuana (THC) Screen Positive H (Negative) Ethyl Alcohol ( - 10) mg/dL SARS-CoV-2 (PCR) (Negative) Imaging Data Chest x-ray: Radiologist's Impression: [address] [id number] ReportSigned Patient: Juan Carlos Guzmán AMR#: [id number]: 7Acct:[id number]/Sex: 65 / MDate of Service: 12/10/20Loc: EDAccession Number: [id number] Procedure: XR chest 1V Ordering Provider: Chivo Mcguire MD PROCEDURE: XR CHEST 1V INDICATIONS: tube placment TECHNIQUE: One view of the chest was acquired. COMPARISON: [facility], CR, XR CHEST 1V, 11/22/2020, 10:22. FINDINGS: Surgical changes and devices: Endotracheal tube is seen with the tip approximately 3 cm above the wild. Low lung volumes. Scattered subsegmental atelectasis and/or scarring. No focal consolidation. No pleural effusions or pneumothorax. Mediastinum: Mediastinal contours appear normal. Heart size is normal. Bones and chest wall: No suspicious bony lesions. Overlying soft tissues appear unremarkable. IMPRESSION: Low lung volumes and scattered atelectatic opacities, versus aspiration. Endotracheal tube with the tip projecting 3 cm above the wild. Dictated by: Ismael Hook M.D. on 12/10/2020 at 14:58 Approved by: Ismael Hook M.D. on 12/10/2020 at 15:00 CT scan - head: Radiologist's Impression: [address] Scan ReportSigned Patient: Juan Carlos Guzmán AMR#: [id number]: 7Acct:[id number]/Sex: 65 / MDate of Service: 12/10/20[facility]: EDAccession Number: [id number] Procedure: CT head/brain wo con Ordering Provider: Chivo Mcguire MD PROCEDURE: CT HEAD/BRAIN WO CON INDICATIONS: Altered mental status TECHNIQUE: Noncontrast 4.5 mm thick angled axial sections acquired from the foramen magnum to the vertex, with coronal and sagittal reformats. For radiation dose reduction, the following was used: automated exposure control, adjustment of mA and/or kV according to patient size. COMPARISON: [facility], CR, XR CHEST 1V, 12/10/2020, 14:33. [facility], CT, CT HEAD/BRAIN WO CON, 11/22/2020, 11:09. FINDINGS: Image quality: There are motion artifacts. CSF spaces: Basal cisterns are patent. No extra-axial fluid collections. The ventricles are symmetric in size and shape. Brain: No intracranial bleeds or masses. There is cerebral volume loss for age, with resultant ventricular and sulcal prominence. There are periventricular and deep white matter chronic small vessel ischemic changes. There is intracranial internal carotid artery atherosclerosis. Skull and face: Calvarium and visualized facial bones appear intact, without suspicious lesions. Note is made of a endotracheal tube. Sinuses: Visualized sinuses and mastoids are clear. IMPRESSION: Limited examination due to motion artifacts. No acute intracranial abnormalities. Dictated by: Nathaniel Walker M.D. on 12/10/2020 at 15:53 Approved by: Nathaniel Walker M.D. on 12/10/2020 at 15:55 CT chest abdomen pelvis: Radiologist's Impression: [address] [id number] Scan ReportSigned Patient: Juan Carlos Guzmán AMR#: [id number]: 7Acct:[id number]/Sex: 65 / MDate of Service: 12/10/20Loc: EDAccession Number: [id number] Procedure: CT chest abd pel wo con Ordering Provider: Chivo Mcguire MD PROCEDURE: CT CHEST ABD PEL WO CON INDICATIONS: Abdominal pain TECHNIQUE: After the administration of oral contrast, 5 mm thick sections acquired from the lung apices to the symphysis pubis. 5 mm thick coronal and sagittal reformats acquired, with additional 7 mm coronal MIP reformats through the lungs. For radiation dose reduction, the following was used: automated exposure control, adjustment of mA and/or kV according to patient size. COMPARISON: [facility], CT, CT ABDOMEN WO/W CON, 03/14/2020, 11:31. [facility], CT, CT ABDOMEN WO/W CON, 07/03/2020, 10:42. [facility], CR, XR CHEST 1V, 12/10/2020, 14:33. [facility], CT, CT ABDOMEN PELVIS W CON, 11/22/2020, 11 :09. FINDINGS: Image quality: Significant motion artifacts. CHEST: Lungs and pleura: There are respiratory motions. Mild interstitial and ground- glass infiltrates infiltrates. Bibasilar atelectasis. The No pneumothorax. Central and peripheral airways are patent are normal in caliber. Mediastinum: There is an endotracheal tube above wild. A nasogastric tube is noted with the tip in the stomach. Heart size is normal. Sezmgwov-ec-dohhev coronary artery calcifications. No pericardial effusion. No mediastinal adenopathy by CT size criteria. Thoracic aorta and central pulmonary arteries are normal in size. Esophagus is normal in caliber. No hiatal hernia. Chest wall: No axillary or supraclavicular adenopathy by size criteria. Thyroid gland is normal there is can accommodate stair. ABDOMEN: Solid organs: Multiple metallic artifacts in the liver. Liver demonstrates nodular contour consistent with cirrhosis. Gallbladder is normal . Pancreas is normal in contours. Spleen is normal in size. There is a 2.2 cm left adrenal nodule, which measured 1.9 cm on 03/14/2020. The nodule demonstrates CT density 29.8 HU, not diagnostic of a benign adrenal adenoma. Both kidneys are normal in size, without hydronephrosis or nephrolithiasis. Peritoneum and bowel: Small and large bowel loops are normal in caliber and wall thickness. There are scattered colonic diverticula. No CT findings to suggest acute diverticulitis. Normal appendix. A small amount of free fluid is present. No free air. Nodes and vessels: No retroperitoneal or mesenteric adenopathy by size criteria. Aorta and inferior vena cava are normal in size. Distal aortic and iliac artery atherosclerosis. Miscellaneous: No ventral hernias. Mild body wall edema consistent with an asarca. PELVIS: Genitourinary: Bladder wall thickness is normal. Miscellaneous: No inguinal hernias or adenopathy. Bones: No suspicious bony lesions. No vertebral body compression fractures. IMPRESSION: 1. Limited examination due to motion artifacts. 2. Mild interstitial and ground-glass infiltrates bilaterally. There are bibasilar dependent atelectasis. 3. Endotracheal tube and nasogastric tube are in expected position. 4. Cirrhotic liver. 5. A small amount of ascites. 6. Diverticulosis without diverticulitis. 7. Turfxpib-xo-zwyzco coronary artery atherosclerosis. 8. A 2.2 cm left adrenal nodule demonstrating CT density higher than a benign adrenal adenoma. It appears slightly enlarged since 03/14/2020. Further evaluation with adrenal protocol CT or MRI is suggested. Dictated by: Nathaniel Walker M.D. on 12/10/2020 at 15:55 Approved by: Nathaniel Walker M.D. on 12/10/2020 at 16:11 ECG Data Attestation: I personally reviewed and interpreted this ECG as follows: Interpretation: Sinus tachycardia otherwise normal EKG rate 112 repeat EKG 1422 sinus tachycardia. Rate 117 MDM Narrative Medical decision making narrative: Patient requiring intubation. Complete by Anesthesiology. Due to heavy volume and critical patients in the emergency department at that time. Anesthesiology was very helpful to assist by intubating patient. Patient condition prevents proper care and evaluation and imaging for patient. Also to prevent self-harm and harm to others. Critical Care Time Critical Care Time Critical Care Time: Yes Total Critical Care Time: 30 Attestation: Critical Care Time minutes: Critical care time is separate from other billable procedures. This critical care time includes consultation with family and other consulting doctors, review of records, and interpretation of data from labs, EKGs, imaging, etc. Discharge Plan Departure Patient Disposition: Admitted As Inpatient Clinical Impression: Acute hepatic encephalopathy Admit Date/Time: 12/10/20 16:39 Admit Provider: Wero Bolaños
[2020-12-10 13:26] LABS: Add Manual Diff / Slide Review NO; Basophils Absolute Auto 100 /uL (0-100); Basophils Percent Auto 0.7 % (0-2); Eosinophils Absolute Auto 0 /uL (0-450); Eosinophils Percent Auto 0.5 % (2-4); Hematocrit 32.7 % (41-53); Hemoglobin 11.1 g/dL (13.5-17.5); Lymphocytes Absolute Auto 400 /uL (1100-4500); Lymphocytes Percent Auto 4.3 % (25-40); Mean Corpuscular Hemoglobin 33.4 PG (26-34); Mean Corpuscular Volume 98.2 fL (80-100); Monocytes Absolute Auto 1200 /uL (0-900); Monocytes Percent Auto 13.8 % (3-14); Neutrophils Absolute Auto 7000 /uL (1500-7000); Neutrophils Percent Auto 80.7 % (50-75); Platelet Count 77 X10^3/uL (150-400); Red Blood Cell Count 3.33 X10^6/uL (4.5-5.9); Red Cell Distribution Width 16.5 % (11.6-14.8); White Blood Cell Count 8.7 X10^3/uL (4.5-11.0)
--- NOTE | 2020-12-10 13:29 | DI.CT.S_ITS ---
PROCEDURE: CT HEAD/BRAIN WO CON INDICATIONS: Altered mental status TECHNIQUE: Noncontrast 4.5 mm thick angled axial sections acquired from the foramen magnum to the vertex, with coronal and sagittal reformats. For radiation dose reduction, the following was used: automated exposure control, adjustment of mA and/or kV according to patient size. COMPARISON: [facility], CR, XR CHEST 1V, 12/10/2020, 14:33. [facility], CT, CT HEAD/BRAIN WO CON, 11/22/2020, 11:09. FINDINGS: Image quality: There are motion artifacts. CSF spaces: Basal cisterns are patent. No extra-axial fluid collections. The ventricles are symmetric in size and shape. Brain: No intracranial bleeds or masses. There is cerebral volume loss for age, with resultant ventricular and sulcal prominence. There are periventricular and deep white matter chronic small vessel ischemic changes. There is intracranial internal carotid artery atherosclerosis. Skull and face: Calvarium and visualized facial bones appear intact, without suspicious lesions. Note is made of a endotracheal tube. Sinuses: Visualized sinuses and mastoids are clear. IMPRESSION: Limited examination due to motion artifacts. No acute intracranial abnormalities. Dictated by: Nathaniel Walker M.D. on 12/10/2020 at 15:53 Approved by: Nathaniel Walker M.D. on 12/10/2020 at 15:55
[2020-12-10] MEDS: LORazepam 2 MG/ML INJ 4 MG IV (13:30)
[2020-12-10 13:32] LABS: HEMOLYSIS < 15 (0-50)
[2020-12-10 13:33] LABS: INR 1.4 (0.9-1.3); Prothrombin Time 15.7 SECONDS (10.1-12.7)
[2020-12-10 13:35] LABS: PTT Partial Thromboplastin Tim 35 SECONDS (26.4-36.2)
[2020-12-10 13:38] LABS: Acetaminophen < 10 ug/mL (10-30); Albumin 3.2 g/dL (3.5-5.0); Albumin Globulin Ratio 0.7 (1.0-2.8); Alkaline Phosphatase 186 U/L (38-126); Aspartate Aminotransferase 84 IU/L (17-59); BUN Creatinine Ratio 26.3 (6-22); Bilirubin Total 4.2 mg/dL (0.2-1.3); Bilirubin Unconjugated 3.5 mg/dL (0.0-1.1); Blood Urea Nitrogen 44 mg/dL (9-20); Calcium 9.2 mg/dL (8.4-10.2); Carbon Dioxide 21 mmol/L (22-32); Chloride 102 mmol/L (98-107); Creatine Kinase 178 U/L (55-170); Estimated Glomerular Filt Rate 41.8 mL/min (>60); Ethanol (ETOH) < 10 mg/dL; Globulin 4.4 g/dL (1.7-4.1); Glucose 151 mg/dL (80-110); Potassium 4.2 mmol/L (3.4-5.1); Salicylate < 1.0 mg/dL (<20); Sodium 135 mmol/L (137-145); Total Protein 7.6 g/dL (6.3-8.2)
[2020-12-10 13:39] LABS: Ammonia (NH3) 81 umol/L (9-30)
[2020-12-10 13:45] LABS: Alanine Aminotransferase 50 IU/L (<50)
[2020-12-10 13:48] LABS: Lactate (Lactic Acid) 6.6 mmol/L (0.7-2.1)
[2020-12-10 13:51] LABS: Troponin I 0.026 ng/mL (0.01-0.034)
[2020-12-10 13:53] LABS: CKMB % Relative Index 1.8 % (1.5-5.0); Creatine Kinase MB 3.23 ng/mL (<2.37)
[2020-12-10 13:56] LABS: Prolactin 42.2 ng/mL (3.7-17.9)
[2020-12-10 14:14] LABS: COVID19 -Nasal RAPID Negative (Negative)
[2020-12-10] MEDS: propofoL 200 MG/20 ML VIAL 120 MG IV (14:15)
[2020-12-10] MEDS: SUCCINYLCHOLINE 200 MG/10 ML VIAL 100 MG IV (14:16)
--- NOTE | 2020-12-10 14:21 | DI.RAD.S_ITS ---
PROCEDURE: XR CHEST 1V INDICATIONS: tube placment TECHNIQUE: One view of the chest was acquired. COMPARISON: [facility], CR, XR CHEST 1V, 11/22/2020, 10:22. FINDINGS: Surgical changes and devices: Endotracheal tube is seen with the tip approximately 3 cm above the wild. Low lung volumes. Scattered subsegmental atelectasis and/or scarring. No focal consolidation. No pleural effusions or pneumothorax. Mediastinum: Mediastinal contours appear normal. Heart size is normal. Bones and chest wall: No suspicious bony lesions. Overlying soft tissues appear unremarkable. IMPRESSION: Low lung volumes and scattered atelectatic opacities, versus aspiration. Endotracheal tube with the tip projecting 3 cm above the wild. Dictated by: Ismael Hook M.D. on 12/10/2020 at 14:58 Approved by: Ismael Hook M.D. on 12/10/2020 at 15:00
[2020-12-10] MEDS: propofoL 1,000 MG/100 ML VIAL 3.39 MG IV (14:22)
[2020-12-10 14:27] LABS: Thyroid Stimulating Hormone 1.63 uIU/mL (0.47-4.68)
--- NOTE | 2020-12-10 14:33 | DI.CT.S_ITS ---
PROCEDURE: CT CHEST ABD PEL WO CON INDICATIONS: Abdominal pain TECHNIQUE: After the administration of oral contrast, 5 mm thick sections acquired from the lung apices to the symphysis pubis. 5 mm thick coronal and sagittal reformats acquired, with additional 7 mm coronal MIP reformats through the lungs. For radiation dose reduction, the following was used: automated exposure control, adjustment of mA and/or kV according to patient size. COMPARISON: [facility], CT, CT ABDOMEN WO/W CON, 03/14/2020, 11:31. [facility], CT, CT ABDOMEN WO/W CON, 07/03/2020, 10:42. [facility], CR, XR CHEST 1V, 12/10/2020, 14:33. [facility], CT, CT ABDOMEN PELVIS W CON, 11/22/2020, 11:09. FINDINGS: Image quality: Significant motion artifacts. CHEST: Lungs and pleura: There are respiratory motions. Mild interstitial and ground-glass infiltrates infiltrates. Bibasilar atelectasis. The No pneumothorax. Central and peripheral airways are patent are normal in caliber. Mediastinum: There is an endotracheal tube above wild. A nasogastric tube is noted with the tip in the stomach. Heart size is normal. Xprekphp-qm-gfgxri coronary artery calcifications. No pericardial effusion. No mediastinal adenopathy by CT size criteria. Thoracic aorta and central pulmonary arteries are normal in size. Esophagus is normal in caliber. No hiatal hernia. Chest wall: No axillary or supraclavicular adenopathy by size criteria. Thyroid gland is normal there is can accommodate stair. ABDOMEN: Solid organs: Multiple metallic artifacts in the liver. Liver demonstrates nodular contour consistent with cirrhosis. Gallbladder is normal . Pancreas is normal in contours. Spleen is normal in size. There is a 2.2 cm left adrenal nodule, which measured 1.9 cm on 03/14/2020. The nodule demonstrates CT density 29.8 HU, not diagnostic of a benign adrenal adenoma. Both kidneys are normal in size, without hydronephrosis or nephrolithiasis. Peritoneum and bowel: Small and large bowel loops are normal in caliber and wall thickness. There are scattered colonic diverticula. No CT findings to suggest acute diverticulitis. Normal appendix. A small amount of free fluid is present. No free air. Nodes and vessels: No retroperitoneal or mesenteric adenopathy by size criteria. Aorta and inferior vena cava are normal in size. Distal aortic and iliac artery atherosclerosis. Miscellaneous: No ventral hernias. Mild body wall edema consistent with anasarca. PELVIS: Genitourinary: Bladder wall thickness is normal. Miscellaneous: No inguinal hernias or adenopathy. Bones: No suspicious bony lesions. No vertebral body compression fractures. IMPRESSION: 1. Limited examination due to motion artifacts. 2. Mild interstitial and ground-glass infiltrates bilaterally. There are bibasilar dependent atelectasis. 3. Endotracheal tube and nasogastric tube are in expected position. 4. Cirrhotic liver. 5. A small amount of ascites. 6. Diverticulosis without diverticulitis. 7. Qopihryw-bu-tqcrvn coronary artery atherosclerosis. 8. A 2.2 cm left adrenal nodule demonstrating CT density higher than a benign adrenal adenoma. It appears slightly enlarged since 03/14/2020. Further evaluation with adrenal protocol CT or MRI is suggested. Dictated by: Nathaniel Walker M.D. on 12/10/2020 at 15:55 Approved by: Nathaniel Walker M.D. on 12/10/2020 at 16:11
--- NOTE | 2020-12-10 14:58 | PM.PROC.1 ---
Procedures Date/Time Date of procedure: 12/10/20 Time of procedure: 14:16 Intubation Time out performed: Yes Sedative: other (propofol) Mg given: 120 Paralytic: succinylcholine Mg given: 100 Laryngoscope: fiber optic video scope ET tube size: 8 ET tube uncuffed: Yes Tube secured depth (cm): 24 Tube secured location: teeth Tube placement confirmation: visualized tube passing through cords and confirmation by capnometry Patient tolerated procedure: well and no complications Intubation complications: none Additional comments: Called to bedside for emergent intubation by ED MD (Shayla) who was managing a critical patient in another room. Patient with altered mental status, significant tachypnea, and although oxygenating well, there was concern that he was going to deteriorate rapidly. Pre-oxygenation with 100% O2 via bag-mask, RSII with propofol and succinyl choline. Glidescope LoPro S3 used with grade 1 view, old dried blood in oropharynx but not around the vocal cords. ETT passed easily with stylette. (+) EtCO2. There were no acute complications and the patient tolerated it well. Sedation with propofol was started via ED protocol. Glenna MOSES Anesthesiologist
[2020-12-10 15:05] LABS: PCO2 ABG 39.3 mmHg (35-45); pH ABG 7.39 (7.35-7.45)
[2020-12-10 15:06] LABS: HCO3 ABG 24 mmol/L (22-26); Oxygen Saturation ABG 100 % (95-100); PO2 ABG 278 mmHg (80-100); TCO2 ABG 25 mmol/L (21-31)
[2020-12-10 15:07] LABS: Fractionated Inspired Oxygen 80
[2020-12-10 15:22] LABS: Reflexed Lactate in 2 Hours Y
[2020-12-10 15:51] LABS: Bacteria Urine None Seen; WBC Urine None Seen (0-5/HPF)
[2020-12-10 15:54] LABS: Appearance Urine UA CLEAR; Bilirubin Urine UA NEGATIVE (NEGATIVE); Color Urine UA YELLOW; Glucose Urine UA TRACE g/dL (Negative); Ketones Urine UA NEGATIVE (NEGATIVE); Leukocyte Esterase Urine UA NEGATIVE (NEGATIVE); Nitrite Urine UA NEGATIVE (Negative); Occult Blood Urine UA 3+ (Negative); Protein Urine UA 1+ (Negative); Urobilinogen Urine UA 0.2 E.U./dL (0.2)
[2020-12-10 15:59] LABS: Culture Indicated Urine Cult Not Indicated; RBC Urine 10-30/HPF (0-5/HPF)
[2020-12-10 16:01] LABS: UR Morphine/Opiate cutoff 300 Negative (Negative); Ur Creatinine Normal (Normal); Ur Specific Gravity Normal (Normal); Urine Amphetamines Negative (Negative); Urine Barbiturates Negative (Negative); Urine Benzodiazepines Negative (Negative); Urine Cocaine Negative (Negative); Urine MDMA Negative (Negative); Urine Methadone Negative (Negative); Urine Methamphetamines Negative (Negative); Urine Oxycodone Negative (Negative); Urine Phencyclidine Negative (Negative); Urine Tetrahydrocannabinol Positive (Negative); Urine Tricyclic Antidepressant Negative (Negative); Urine pH Normal (Normal)
[2020-12-10 16:12] LABS: Lactate 2HR (Lactic Acid Rflx) 4.3 mmol/L (0.7-2.1)
--- NOTE | 2020-12-10 16:19 | PC.NURSE ---
patient arived via ems. flailing and attempting to climb off gurney. ems unable to get iv access. ativan haldol and benedryl given im with no response. 2mg ativan given im again with no response IV access established x2 2mg ativan given IV in hopes to calm for CT, patient showed some response however would not hold still for CT and second round of 2mg ativan given. Not enough effect from medication to get a CT study. anestheia called and intubated patient restraints removed CT completed
[2020-12-10] MEDS: SODIUM CHLORIDE 0.9% 1,000 ML 1000 ML IV (16:25)
--- NOTE | 2020-12-10 16:39 | PC.NURSE ---
partner Ishmael at bedside
--- NOTE | 2020-12-10 16:45 | PC.NURSE ---
blood cultures x2 drawn by Margot from lab
[2020-12-10] MEDS: PIPERACILLIN-TAZO 3.375 GM/50 ML FROZ.PIGGY IV (16:46)
--- NOTE | 2020-12-10 16:46 | PC.NURSE ---
partner Ishmael went home
--- NOTE | 2020-12-10 17:20 | PM.HP.1 ---
History of Present Illness History of Present Illness Date Patient Seen: 12/10/20 Time Patient Seen: 17:20 Chief complaint: Confusion Narrative: Patient is a 65-year-old male with chronic hep C cirrhosis, ascites, history of resection of hepatocellular carcinoma, chronic kidney disease, asthma sent to emergency department for acute confusion. He was recently discharged a few weeks ago for hepatic encephalopathy to home. History is largely obtained from the ER providers no family is available for review and patient is currently intubated. Upon arrival to the ER he was combative and would not allow for labs to be drawn or imaging to be taken. Given the need for further evaluation, the ER provider called Anesthesia for intubation. In the emergency room, the patient was hypertensive, tachycardic, and tachypneic but saturating well on room air. Initial CBC was unremarkable with a WBC of 8.7 and hemoglobin of 11.1, up from his usual baseline. Platelets were 77 also up from his usual baseline indicative of probable dehydration. ABG was unremarkable with a pH of 7.39, pCO2 of 39, and a PO2 of 278. Chemistries revealed a creatinine of 1.67 up from his baseline of around 1.3, BUN of 44, lactic acid of 4.3, total bilirubin of 4.2 which is actually down from his prior admission and relatively stable AST and ALT levels. His ammonia level was 81. Troponin was 0.026 and EKG was unremarkable. Patient History Medical History Anasarca Ascites Asthma Elevated brain natriuretic peptide (BNP) level Hepatitis C Hypertension Liver cancer Liver cirrhosis Surgical History History of surgery of liver Family & Social History Family History Father Trauma Mother Sjogrens syndrome Sister No significant medical problems Social History: household members spouse Tobacco & Substance use: Tobacco type cigarettes Smoking Status Former smoker alcohol intake former alcohol intake frequency 0-2 drinks per day Substance Use Type marijuana Meds Home Medications and Allergies Home Medications Medication Instructions Recorded Confirmed Type albuterol sulfate 90 mcg/actuation 2 inhalation INHALATION Q4-6H PRN 01/23/20 11/22/20 Rx breath activated powder inhaler #1 each spironolactone 100 mg PO DAILY 04/15/20 11/22/20 History bumetanide 2 mg PO DAILY 11/22/20 11/22/20 History calcium carbonate 500 mg PO DAILY PRN 11/23/20 11/23/20 History diclofenac sodium [Voltaren] 1 ea TOPICAL QID PRN 30 Days #100 g 11/24/20 Rx lactulose 20 g PO BID 30 Days #1800 ml 11/24/20 Rx Allergies Allergy/AdvReac Type Severity Reaction Status Date / Time No Known Drug Allergies Allergy Verified 11/22/20 10:26 Review of Systems Review of Systems Narrative: All other systems reviewed with the patient and are negative unless otherwise stated. Exam Vital Signs (past 8 hours): - 12/10/20 12:54 12/10/20 12:55 12/10/20 13:00 Pulse Rate 114 H 116 H 113 H Respiratory Rate 25 H 25 H 35 H Blood Pressure 188/95 H Pulse Oximetry 86 L 85 L 100 12/10/20 13:01 12/10/20 13:05 12/10/20 13:10 Pulse Rate 118 H 119 H 119 H Respiratory Rate 29 H 32 H 36 H Blood Pressure 183/90 H 199/91 H 196/79 H Pulse Oximetry 100 82 L 12/10/20 13:15 12/10/20 13:20 12/10/20 13:25 Pulse Rate 113 H 111 H 116 H Respiratory Rate 22 21 31 H Blood Pressure 196/84 H 194/88 H 192/86 H Pulse Oximetry 100 100 100 12/10/20 13:30 12/10/20 13:37 12/10/20 13:41 Pulse Rate 116 H 115 H 117 H Respiratory Rate 26 H 25 H 29 H Blood Pressure 194/84 H 194/79 H 206/136 H Pulse Oximetry 100 100 100 12/10/20 13:45 12/10/20 13:55 12/10/20 14:00 Pulse Rate 117 H 121 H 124 H Respiratory Rate 30 H 50 H 56 H Blood Pressure 186/103 H 214/102 H 210/100 H Pulse Oximetry 99 100 100 12/10/20 14:05 12/10/20 14:10 12/10/20 14:14 Pulse Rate 123 H 122 H 125 H Respiratory Rate 54 H 32 H 54 H Blood Pressure 246/112 H 240/108 H 227/90 H Pulse Oximetry 100 98 100 12/10/20 14:15 12/10/20 14:20 12/10/20 14:25 Pulse Rate 124 H 118 H 117 H Respiratory Rate 68 H 16 16 Blood Pressure 225/104 H 212/98 H 209/95 H Pulse Oximetry 100 100 90 L 12/10/20 14:30 12/10/20 14:35 12/10/20 14:40 Pulse Rate 116 H 117 H 118 H Respiratory Rate 22 24 28 H Blood Pressure Pulse Oximetry 95 100 100 12/10/20 14:42 12/10/20 14:45 12/10/20 14:50 Pulse Rate 120 H 119 H 118 H Respiratory Rate 29 H 33 H 34 H Blood Pressure 182/92 H Pulse Oximetry 100 100 100 12/10/20 14:55 12/10/20 15:00 12/10/20 15:01 Pulse Rate 120 H 121 H 121 H Respiratory Rate 30 H 27 H 28 H Blood Pressure 176/85 H Pulse Oximetry 100 100 100 12/10/20 15:05 12/10/20 15:10 12/10/20 15:15 Pulse Rate 122 H 123 H 124 H Respiratory Rate 29 H 26 H 29 H Blood Pressure 163/73 H 170/77 H 166/77 H Pulse Oximetry 100 100 100 12/10/20 15:20 12/10/20 15:23 12/10/20 15:25 Pulse Rate 125 H 125 H 125 H Respiratory Rate 28 H 29 H 29 H Blood Pressure 178/93 H 175/81 H Pulse Oximetry 100 100 99 12/10/20 15:30 12/10/20 15:34 12/10/20 15:35 Pulse Rate 126 H 125 H 125 H Respiratory Rate 31 H 28 H 26 H Blood Pressure 161/80 H 152/77 H 162/80 H Pulse Oximetry 99 100 100 12/10/20 15:40 12/10/20 15:45 12/10/20 15:49 Pulse Rate 123 H 123 H 123 H Respiratory Rate 27 H 27 H 27 H Blood Pressure 153/77 H 157/75 H Pulse Oximetry 100 100 100 12/10/20 15:50 Pulse Rate Respiratory Rate Blood Pressure 158/77 H Pulse Oximetry Narrative Exam Narrative: GENERAL APPEARANCE: Chronically ill-appearing, obese male, intubated and sedated within NG tube and ET tube in place. SKIN: Inspection of the skin reveals no rashes, ulcerations or petechiae. HEENT: Normocephalic atraumatic, extraocular muscles are intact, oropharynx is clear and mucous membranes are dry. There is a dried blood around the ET tube. NECK: Supple and symmetric. There was no thyroid enlargement, and no tenderness, or masses were felt. CHEST: Normal AP diameter and normal contour without any kyphoscoliosis. LUNGS: Auscultation of the lungs revealed diminished breath sounds bilaterally but no wheezing, rhonchi, or rales. CARDIOVASCULAR: There was a tachycardic rate and regular rhythm without any murmurs, gallops, rubs. Peripheral pulses were 2+ and symmetric. ABDOMEN: Soft and nondistended, difficult to assess of ascites is present given obesity. MUSCULOSKELETAL: No obvious joint effusions or deformities. EXTREMITIES: No cyanosis, clubbing or edema. NEUROLOGIC: Intubated and sedated, unable to accurately assess. He moves his bilateral lower extremities and wiggles his toes, but is not currently following commands on propofol. Objective ECG Impression: Sinus tachycardia. No evidence of acute ischemia. Imaging CT scan - head: Radiologist's impression: PROCEDURE: CT HEAD/BRAIN WO CON INDICATIONS: Altered mental status TECHNIQUE: Noncontrast 4.5 mm thick angled axial sections acquired from the foramen magnum to the vertex, with coronal and sagittal reformats. For radiation dose reduction, the following was used: automated exposure control, adjustment of mA and/or kV according to patient size. COMPARISON: [facility], CR, XR CHEST 1V, 12/10/2020, 14:33. [facility], CT, CT HEAD/BRAIN WO CON, 11/22/2020, 11:09. FINDINGS: Image quality: There are motion artifacts. CSF spaces: Basal cisterns are patent. No extra-axial fluid collections. The ventricles are symmetric in size and shape. Brain: No intracranial bleeds or masses. There is cerebral volume loss for age, with resultant ventricular and sulcal prominence. There are periventricular and deep white matter chronic small vessel ischemic changes. There is intracranial internal carotid artery atherosclerosis. Skull and face: Calvarium and visualized facial bones appear intact, without suspicious lesions. Note is made of a endotracheal tube. Sinuses: Visualized sinuses and mastoids are clear. IMPRESSION: Limited examination due to motion artifacts. No acute intracranial abnormalities. CT scan - abdomen: Radiologist's impression: IMPRESSION: 1. Limited examination due to motion artifacts. 2. Mild interstitial and ground-glass infiltrates bilaterally. There are bibasilar dependent atelectasis. 3. Endotracheal tube and nasogastric tube are in expected position. 4. Cirrhotic liver. 5. A small amount of ascites. 6. Diverticulosis without diverticulitis. 7. [id number] coronary artery atherosclerosis. 8. A 2.2 cm left adrenal nodule demonstrating CT density higher than a benign adrenal adenoma. It appears slightly enlarged since 03/14/2020. Further evaluation with adrenal protocol CT or MRI is suggested. Chest x-ray: My impression: ET tube in place, approximately 3 cm above the wild. No focal consolidations but poor inspiratory film. Radiologist's impression: PROCEDURE: XR CHEST 1V INDICATIONS: tube placment TECHNIQUE: One view of the chest was acquired. COMPARISON: [facility], , XR CHEST 1V, 11/22/2020, 10:22. FINDINGS: Surgical changes and devices: Endotracheal tube is seen with the tip approximately 3 cm above the wild. Low lung volumes. Scattered subsegmental atelectasis and/or scarring. No focal consolidation. No pleural effusions or pneumothorax. Mediastinum: Mediastinal contours appear normal. Heart size is normal. Bones and chest wall: No suspicious bony lesions. Overlying soft tissues appear unremarkable. IMPRESSION: Low lung volumes and scattered atelectatic opacities, versus aspiration. Endotracheal tube with the tip projecting 3 cm above the wild. Labs Result Diagrams: 12/10/20 13:15 12/10/20 13:15 Labs: Laboratory Results - last 24 hr 12/10/20 12/10/20 12/10/20 13:15 13:15 13:15 WBC 8.7 RBC 3.33 L Hgb 11.1 L Hct 32.7 L MCV 98.2 MCH 33.4 MCHC 34.0 RDW 16.5 H Plt Count 77 L Neut % (Auto) 80.7 H Lymph % (Auto) 4.3 L Schleicher % (Auto) 13.8 Eos % (Auto) 0.5 L Baso % (Auto) 0.7 Neut # (Auto) 7000 Lymph # (Auto) 400 L Schleicher # (Auto) 1200 H Eos # (Auto) 0 Baso # (Auto) 100 PT 15.7 H INR 1.4 H APTT 35 ABG pH ABG pCO2 ABG pO2 ABG HCO3 ABG Total CO2 ABG O2 Saturation ABG Base Excess FiO2 Sodium Potassium Chloride Carbon Dioxide BUN Creatinine Estimated GFR BUN/Creatinine Ratio Glucose Lactate Calcium Total Bilirubin Conjugated Bilirubin Unconjugated Bilirubin AST ALT Alkaline Phosphatase Ammonia 81 H Total Creatine Kinase CK-MB (CK-2) CK-MB (CK-2) Rel Index Troponin I Total Protein Albumin Globulin Albumin/Globulin Ratio TSH Prolactin Urine Color Urine Appearance Urine pH Ur Specific [place] Urine Protein Urine Glucose (UA) Urine Ketones Urine Occult Blood Urine Nitrate Urine Bilirubin Urine Urobilinogen Ur Leukocyte Esterase Urine RBC Urine WBC Urine Bacteria Ur Culture Indicated? Salicylates U Opiates 300ng/mL cut Ur Oxycodone Screen Urine Methadone Screen Acetaminophen Ur Barbiturates Screen U Tricyclic Antidepress Ur Phencyclidine Scrn Ur Amphetamines Screen U Methamphetamines Scrn Ur MDMA Scrn (Ecstasy) U Benzodiazepines Scrn Urine Cocaine Screen U Marijuana (THC) Screen Ethyl Alcohol SARS-CoV-2 (PCR) 12/10/20 12/10/20 12/10/20 13:15 13:15 13:15 WBC RBC Hgb Hct MCV MCH MCHC RDW Plt Count Neut % (Auto) Lymph % (Auto) Schleicher % (Auto) Eos % (Auto) Baso % (Auto) Neut # (Auto) Lymph # (Auto) Schleicher # (Auto) Eos # (Auto) Baso # (Auto) PT INR APTT ABG pH ABG pCO2 ABG pO2 ABG HCO3 ABG Total CO2 ABG O2 Saturation ABG Base Excess FiO2 Sodium 135 L Potassium 4.2 Chloride 102 Carbon Dioxide 21 L BUN 44 H Creatinine 1.67 H Estimated GFR 41.8 L BUN/Creatinine Ratio 26.3 H Glucose 151 H Lactate 6.6 H* Calcium 9.2 Total Bilirubin 4.2 H Conjugated Bilirubin 0.0 Unconjugated Bilirubin 3.5 H AST 84 H ALT 50 H Alkaline Phosphatase 186 H Ammonia Total Creatine Kinase 178 H CK-MB (CK-2) 3.23 H CK-MB (CK-2) Rel Index 1.8 Troponin I 0.026 Total Protein 7.6 Albumin 3.2 L Globulin 4.4 H Albumin/Globulin Ratio 0.7 L TSH 1.63 Prolactin 42.2 H Urine Color Urine Appearance Urine pH Ur Specific [place] Urine Protein Urine Glucose (UA) Urine Ketones Urine Occult Blood Urine Nitrate Urine Bilirubin Urine Urobilinogen Ur Leukocyte Esterase Urine RBC Urine WBC Urine Bacteria Ur Culture Indicated? Salicylates < 1.0 U Opiates 300ng/mL cut Ur Oxycodone Screen Urine Methadone Screen Acetaminophen < 10 L Ur Barbiturates Screen U Tricyclic Antidepress Ur Phencyclidine Scrn Ur Amphetamines Screen U Methamphetamines Scrn Ur MDMA Scrn (Ecstasy) U Benzodiazepines Scrn Urine Cocaine Screen U Marijuana (THC) Screen Ethyl Alcohol < 10 SARS-CoV-2 (PCR) 12/10/20 12/10/20 12/10/20 13:45 14:50 15:40 WBC RBC Hgb Hct MCV MCH MCHC RDW Plt Count Neut % (Auto) Lymph % (Auto) Schleicher % (Auto) Eos % (Auto) Baso % (Auto) Neut # (Auto) Lymph # (Auto) Schleicher # (Auto) Eos # (Auto) Baso # (Auto) PT INR APTT ABG pH 7.39 ABG pCO2 39.3 ABG pO2 278 H* ABG HCO3 24 ABG Total CO2 25 ABG O2 Saturation 100 ABG Base Excess -1.0 FiO2 80 Sodium Potassium Chloride Carbon Dioxide BUN Creatinine Estimated GFR BUN/Creatinine Ratio Glucose Lactate Calcium Total Bilirubin Conjugated Bilirubin Unconjugated Bilirubin AST ALT Alkaline Phosphatase Ammonia Total Creatine Kinase CK-MB (CK-2) CK-MB (CK-2) Rel Index Troponin I Total Protein Albumin Globulin Albumin/Globulin Ratio TSH Prolactin Urine Color Yellow Urine Appearance Clear Urine pH 5.0 Ur Specific [place] 1.020 Urine Protein 1+ H Urine Glucose (UA) Trace H Urine Ketones Negative Urine Occult Blood 3+ H Urine Nitrate Negative Urine Bilirubin Negative Urine Urobilinogen 0.2 Ur Leukocyte Esterase Negative Urine RBC 10-30/hpf H Urine WBC None seen Urine Bacteria None seen Ur Culture Indicated? Cult not indicated Salicylates U Opiates 300ng/mL cut Ur Oxycodone Screen Urine Methadone Screen Acetaminophen Ur Barbiturates Screen U Tricyclic Antidepress Ur Phencyclidine Scrn Ur Amphetamines Screen U Methamphetamines Scrn Ur MDMA Scrn (Ecstasy) U Benzodiazepines Scrn Urine Cocaine Screen U Marijuana (THC) Screen Ethyl Alcohol SARS-CoV-2 (PCR) Negative 12/10/20 12/10/20 15:40 15:49 WBC RBC Hgb Hct MCV MCH MCHC RDW Plt Count Neut % (Auto) Lymph % (Auto) Schleicher % (Auto) Eos % (Auto) Baso % (Auto) Neut # (Auto) Lymph # (Auto) Schleicher # (Auto) Eos # (Auto) Baso # (Auto) PT INR APTT ABG pH ABG pCO2 ABG pO2 ABG HCO3 ABG Total CO2 ABG O2 Saturation ABG Base Excess FiO2 Sodium Potassium Chloride Carbon Dioxide BUN Creatinine Estimated GFR BUN/Creatinine Ratio Glucose Lactate 4.3 H* Calcium Total Bilirubin Conjugated Bilirubin Unconjugated Bilirubin AST ALT Alkaline Phosphatase Ammonia Total Creatine Kinase CK-MB (CK-2) CK-MB (CK-2) Rel Index Troponin I Total Protein Albumin Globulin Albumin/Globulin Ratio TSH Prolactin Urine Color Urine Appearance Urine pH Ur Specific [place] Urine Protein Urine Glucose (UA) Urine Ketones Urine Occult Blood Urine Nitrate Urine Bilirubin Urine Urobilinogen Ur Leukocyte Esterase Urine RBC Urine WBC Urine Bacteria Ur Culture Indicated? Salicylates U Opiates 300ng/mL cut Negative Ur Oxycodone Screen Negative Urine Methadone Screen Negative Acetaminophen Ur Barbiturates Screen Negative U Tricyclic Antidepress Negative Ur Phencyclidine Scrn Negative Ur Amphetamines Screen Negative U Methamphetamines Scrn Negative Ur MDMA Scrn (Ecstasy) Negative U Benzodiazepines Scrn Negative Urine Cocaine Screen Negative U Marijuana (THC) Screen Positive H Ethyl Alcohol SARS-CoV-2 (PCR) Assessment & Plan Assessment & Plan narrative: Patient is a 65-year-old male with chronic hep C cirrhosis, ascites, history of resection of hepatocellular carcinoma, chronic kidney disease, asthma sent to emergency department for acute confusion. Admitted for hepatic encephalopathy. 1. Acute hepatic encephalopathy - patient intubated in the ER for combativeness. He appears dehydrated with an elevated hemoglobin and compared to his baseline although he does have some possible coffee-ground appearance to his NG tube output. Will start on Protonix for now, but suspect this coffee-ground appearance may be secondary to traumatic ET tube placement, although he is at risk for GI bleeding with his hepatic cirrhosis. -no overt pathology identified on abdominal CT or CXR. Head CT also unremarkable. -normal leukocytosis, and CT imaging shows a small amount of ascites. Will check an abdominal ultrasound to evaluate for pocket for possible diagnostic paracentesis to r/o SBP. -continue fentanyl propofol for now for sedation. Start weaning trials tomorrow. -ammonia level elevated on admission higher than previous. Suspect non-compliance with lactulose therapy as these were not in the medication bag he brought in. start rectal lactulose for now. If improvement in output from NG tube can start lactulose via NG tube. -troponin within normal limits. will rehydrate rather than diurese at this time. -consider rifaximin given likely compliance issues. 2. hepatitis-C cirrhosis - bilirubin has improved since previous admission now at 4.2. Appears stable at this time. 3. Cirrhotic ascites - will hold home bumex and aldactone given dehydration on admission. Small amount, have ordered US paracentesis to see if there is a tappable pocket. 4. LALITHA on Chronic kidney disease III - - suspect secondary to dehydration. Will continue to monitor. 5. Elevated lactic acid - continue rehydration, continue to follow until <2. Code: Full, unable to discuss but previously discussed during his last admission. Dispo: ADmit to ICU. DVT: SCDs given possible UGI bleeding and cirrhosis. will continue to monitor at this time. I spent 35 minutes providing critical care management this patient. This excludes time spent in performing separately billed procedures.
--- NOTE | 2020-12-10 17:37 | RT ---
PT TRANSFERRED FROM ED TO ICU ON VENT. NO APPARENT COMPLICATIONS NOTED. PT PLACED ON SERVO-I FROM LTV. DR. MAGUIRE IS AWARE OF VENT SETTINGS. PT APPEARS COMFORTABLE. RN UPDATED.
[2020-12-10] MEDS: SODIUM CHLORIDE 0.9% 1,000 ML 100 ML IV (18:03)
[2020-12-10] MEDS: fentaNYL 1,000 MCG in DEXTROSE 5% IN WATER 250 ML 21.357 ML IV (18:03)
[2020-12-10] MEDS: ALBUTEROL/IPRATROPIUM 3 ML AMPUL INH ×2 (19:34→23:11)
[2020-12-10] MEDS: LACTULOSE 20 GM/30 ML SOLUTION PR (20:20)
[2020-12-10] MEDS: PANTOPRAZOLE 40 MG VIAL IV (21:58)
--- NOTE | 2020-12-10 22:26 | PC.ADMIT ---
[address] Admission Note: Pt arrived via gurney from ED, intubated with Propofol at 9ml/hr, NS bolus infusing. Moved pt to bed with slide board, RT at bedside connecting to vent in room Setting 35% PEEP 5 RR 16 Tidal volume 500 SpO2 100%, Telemetry SR HR 90-96. Pt tolerated transfer well, VSS, bed low and locked, call light within reach, will continue to monitor The patient,Juan Carlos Guzmán,65 y/o, was given written information regarding hospital policies, unit procedures and contact persons. Patient's smoking status: Former smoker. Vital Signs - 8 hr 12/10/20 14:30 12/10/20 14:35 12/10/20 14:40 Temperature Pulse Rate 116 H 117 H 118 H Respiratory Rate 22 24 28 H Blood Pressure Pulse Oximetry 95 100 100 12/10/20 14:42 12/10/20 14:45 12/10/20 14:50 Temperature Pulse Rate 120 H 119 H 118 H Respiratory Rate 29 H 33 H 34 H Blood Pressure 182/92 H Pulse Oximetry 100 100 100 12/10/20 14:55 12/10/20 15:00 12/10/20 15:01 Temperature Pulse Rate 120 H 121 H 121 H Respiratory Rate 30 H 27 H 28 H Blood Pressure 176/85 H Pulse Oximetry 100 100 100 12/10/20 15:05 12/10/20 15:10 12/10/20 15:15 Temperature Pulse Rate 122 H 123 H 124 H Respiratory Rate 29 H 26 H 29 H Blood Pressure 163/73 H 170/77 H 166/77 H Pulse Oximetry 100 100 100 12/10/20 15:20 12/10/20 15:23 12/10/20 15:25 Temperature Pulse Rate 125 H 125 H 125 H Respiratory Rate 28 H 29 H 29 H Blood Pressure 178/93 H 175/81 H Pulse Oximetry 100 100 99 12/10/20 15:30 12/10/20 15:34 12/10/20 15:35 Temperature Pulse Rate 126 H 125 H 125 H Respiratory Rate 31 H 28 H 26 H Blood Pressure 161/80 H 152/77 H 162/80 H Pulse Oximetry 99 100 100 12/10/20 15:40 12/10/20 15:45 12/10/20 15:49 Temperature Pulse Rate 123 H 123 H 123 H Respiratory Rate 27 H 27 H 27 H Blood Pressure 153/77 H 157/75 H Pulse Oximetry 100 100 100 12/10/20 15:50 12/10/20 15:55 12/10/20 16:00 Temperature Pulse Rate 122 H 121 H 121 H Respiratory Rate 23 28 H 23 Blood Pressure 158/77 H 155/72 H Pulse Oximetry 100 100 100 12/10/20 16:04 12/10/20 16:05 12/10/20 16:10 Temperature Pulse Rate 120 H 121 H 120 H Respiratory Rate 24 22 22 Blood Pressure 130/68 149/75 H 136/74 Pulse Oximetry 100 100 100 12/10/20 16:15 12/10/20 16:20 12/10/20 16:25 Temperature Pulse Rate 120 H 120 H 119 H Respiratory Rate 25 H 27 H 25 H Blood Pressure 132/74 123/71 133/69 Pulse Oximetry 100 100 100 12/10/20 16:30 12/10/20 16:35 12/10/20 16:40 Temperature Pulse Rate 119 H 117 H 117 H Respiratory Rate 23 23 26 H Blood Pressure 133/72 141/71 H 149/74 H Pulse Oximetry 100 100 100 12/10/20 16:45 12/10/20 16:50 12/10/20 16:55 Temperature Pulse Rate 116 H 115 H 113 H Respiratory Rate 27 H 23 25 H Blood Pressure 144/72 H 148/71 H 131/69 Pulse Oximetry 100 100 100 12/10/20 17:00 12/10/20 17:05 12/10/20 17:21 Temperature 98 F 98.0 F Pulse Rate 112 H 112 H 112 H Respiratory Rate 27 H 22 16 Blood Pressure 136/67 139/69 137/66 Pulse Oximetry 100 100 100 12/10/20 17:41 12/10/20 17:45 12/10/20 17:50 Temperature Pulse Rate 109 H 104 H 104 H Respiratory Rate 24 22 21 Blood Pressure Pulse Oximetry 100 99 99 12/10/20 17:55 12/10/20 18:00 12/10/20 18:05 Temperature Pulse Rate 104 H 101 H 101 H Respiratory Rate 20 21 21 Blood Pressure 127/58 L Pulse Oximetry 99 99 99 12/10/20 18:10 12/10/20 18:15 12/10/20 18:20 Temperature Pulse Rate 102 H 102 H 102 H Respiratory Rate 22 22 21 Blood Pressure Pulse Oximetry 99 99 99 12/10/20 18:25 12/10/20 18:30 12/10/20 18:35 Temperature Pulse Rate 102 H 104 H 103 H Respiratory Rate 22 24 29 H Blood Pressure 142/65 H Pulse Oximetry 100 98 100 12/10/20 18:40 12/10/20 18:45 12/10/20 18:50 Temperature Pulse Rate 102 H 101 H 100 H Respiratory Rate 21 19 21 Blood Pressure Pulse Oximetry 100 100 100 12/10/20 18:55 12/10/20 19:00 12/10/20 19:05 Temperature Pulse Rate 97 H 97 H 95 H Respiratory Rate 18 20 18 Blood Pressure 114/55 L Pulse Oximetry 100 100 100 12/10/20 19:10 12/10/20 19:15 12/10/20 19:20 Temperature Pulse Rate 93 H 96 H 97 H Respiratory Rate 17 19 20 Blood Pressure Pulse Oximetry 100 100 100 12/10/20 19:21 12/10/20 19:25 12/10/20 19:30 Temperature 98.2 F Pulse Rate 98 H 98 H 98 H Respiratory Rate 17 18 18 Blood Pressure 120/60 120/60 Pulse Oximetry 100 100 100 12/10/20 19:34 12/10/20 19:35 12/10/20 19:40 Temperature Pulse Rate 99 H 99 H 100 H Respiratory Rate 19 17 19 Blood Pressure Pulse Oximetry 100 100 100 12/10/20 19:45 12/10/20 19:50 12/10/20 19:55 Temperature Pulse Rate 99 H 100 H 99 H Respiratory Rate 19 19 18 Blood Pressure Pulse Oximetry 100 100 100 12/10/20 20:00 12/10/20 20:05 12/10/20 20:10 Temperature Pulse Rate 100 H 102 H 99 H Respiratory Rate 19 21 18 Blood Pressure 119/57 L Pulse Oximetry 100 100 100 12/10/20 20:15 12/10/20 20:20 12/10/20 20:25 Temperature Pulse Rate 99 H 99 H 100 H Respiratory Rate 19 18 17 Blood Pressure Pulse Oximetry 100 100 100 12/10/20 20:30 12/10/20 20:31 12/10/20 20:35 Temperature Pulse Rate 101 H 102 H 99 H Respiratory Rate 26 H 20 19 Blood Pressure 148/76 H Pulse Oximetry 99 98 99 12/10/20 20:40 03/02/21 20:45 12/10/20 20:50 Temperature Pulse Rate 97 H 97 H 96 H Respiratory Rate 19 20 18 Blood Pressure Pulse Oximetry 98 99 98 12/10/20 20:55 12/10/20 21:00 12/10/20 21:05 Temperature Pulse Rate 95 H 96 H 94 H Respiratory Rate 18 18 18 Blood Pressure 115/56 L Pulse Oximetry 98 98 98 12/10/20 21:10 12/10/20 21:15 12/10/20 21:20 Temperature Pulse Rate 95 H 94 H 94 H Respiratory Rate 18 18 18 Blood Pressure Pulse Oximetry 98 98 98 12/10/20 21:25 12/10/20 21:30 12/10/20 21:35 Temperature Pulse Rate 99 H 97 H 96 H Respiratory Rate 18 21 18 Blood Pressure 133/62 Pulse Oximetry 99 99 99 12/10/20 21:40 12/10/20 21:45 Temperature Pulse Rate 94 H 92 H Respiratory Rate 19 17 Blood Pressure Pulse Oximetry 99 99
[2020-12-11] VITALS (165 sets, daily range): BP systolic 95–125; BP diastolic 51–70; PULSE 65–110; RESP 15–28; TEMP 36.2–37; O2SAT 95–100
[2020-12-11] MEDS: propofoL 1,000 MG/100 ML VIAL 10.17 MG IV (00:48)
[2020-12-11] MEDS: SODIUM CHLORIDE 0.9% 1,000 ML 100 ML IV ×2 (04:20→14:20)
[2020-12-11] MEDS: fentaNYL 1,000 MCG in DEXTROSE 5% IN WATER 250 ML 27.459 ML IV (04:21)
[2020-12-11 05:01] LABS: Add Manual Diff / Slide Review NO; Basophils Absolute Auto 100 /uL (0-100); Basophils Percent Auto 0.6 % (0-2); Eosinophils Absolute Auto 100 /uL (0-450); Eosinophils Percent Auto 1.1 % (2-4); Hematocrit 26.8 % (41-53); Hemoglobin 9.2 g/dL (13.5-17.5); Lymphocytes Absolute Auto 500 /uL (1100-4500); Lymphocytes Percent Auto 5.9 % (25-40); Mean Corpuscular HGB Conc 34.4 % (30-36); Mean Corpuscular Hemoglobin 33.8 PG (26-34); Mean Corpuscular Volume 98.3 fL (80-100); Monocytes Absolute Auto 1400 /uL (0-900); Monocytes Percent Auto 16.2 % (3-14); Neutrophils Absolute Auto 6600 /uL (1500-7000); Neutrophils Percent Auto 76.2 % (50-75); Platelet Count 63 X10^3/uL (150-400); Red Blood Cell Count 2.72 X10^6/uL (4.5-5.9); Red Cell Distribution Width 16.4 % (11.6-14.8); White Blood Cell Count 8.7 X10^3/uL (4.5-11.0)
[2020-12-11 05:14] LABS: Alanine Aminotransferase 36 IU/L (<50); Albumin 2.4 g/dL (3.5-5.0); Albumin Globulin Ratio 0.7 (1.0-2.8); Alkaline Phosphatase 130 U/L (38-126); Aspartate Aminotransferase 67 IU/L (17-59); BUN Creatinine Ratio 29.3 (6-22); Bilirubin Total 4.3 mg/dL (0.2-1.3); Bilirubin Unconjugated 3.8 mg/dL (0.0-1.1); Blood Urea Nitrogen 48 mg/dL (9-20); Calcium 8.3 mg/dL (8.4-10.2); Carbon Dioxide 24 mmol/L (22-32); Chloride 107 mmol/L (98-107); Estimated Glomerular Filt Rate 42.6 mL/min (>60); Globulin 3.6 g/dL (1.7-4.1); Glucose 156 mg/dL (80-110); HEMOLYSIS < 15 (0-50); Magnesium 2.3 mg/dL (1.6-2.3); Phosphorous 4.1 mg/dL (2.3-3.7); Sodium 133 mmol/L (137-145)
--- NOTE | 2020-12-11 06:34 | PC.NURSE ---
Research Methods Instructor Note-Patient is on ventilator, FIO2 .30, TV 500, RR 16, PEEP 5, SR/ST, SpO2 >96% mostly riding vent with RR 16-20, lung sounds slightly coarse, scant blood tinged sputum. Sedated with propofol gtt, titrating 5-15mcg/min, and Fentanyl gtt started at 0.9mcg/min, decreased to 0.6mcg/min for RASS and mild hypotension, see vital trends. NGT to LIS with 200ml dark bile output, no stools, 250ml aleah UOP from [facility]. Soft wrist restraints on to keep patient from pulling at lines and tubes.
[2020-12-11] MEDS: PANTOPRAZOLE 40 MG VIAL IV ×2 (08:25→20:13)
[2020-12-11] MEDS: LACTULOSE 20 GM/30 ML SOLUTION PO ×2 (08:25→20:13)
[2020-12-11] MEDS: propofoL 1,000 MG/100 ML VIAL 6.78 MG IV (09:26)
--- NOTE | 2020-12-11 12:08 | CM.DANOTE ---
DCP: Case received, EMR reviewed. Patient is currently intubated at this time. DCP assessment completed with information currently available. Patient has been here recently before. Patient is a 65 year old male who admitted yesterday afternoon to the care of the hospitalist team. PCP: Dr. Payan. Payer: confirmed: Medicare/Medicaid. Patient came to the hospital via ambulance secondary to having altered mental status, and confusion. Patient has history of cirrhosis of the liver. He had been agitated, in soft point restraints, and intubated due to the medications administered. Patient holds diagnosis of hepatic encephalopathy. 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 He resides in [place] with his significant other, Tayler Rasmussen. He does not drive, he has had home health services before, unclear at this time which agency he used. P: DCP to follow closely. Anticipate that patient will be here for a few days. Will need to see if patient will have needs, such as custodial versus home health, since he has Medicare. Addis Roca RN/Fuel Testing Technician
--- NOTE | 2020-12-11 13:45 | PC.NURSE ---
Day Shift Note Pt ventilated and sedated on fentanyl and propofol, RASS -4 on morning assessment and sedation medications titrated down (see emar for titration history). FiO2 30% with SpO2 at 99-100%, RR 16. Opens eyes to voice but does not focus or track, unable to follow directions. Soft wrist restraints in place bilaterally. Lungs clear but decreased, minimal clear secretions suctioned via ET tube. SR in the 70s, intermittently up to 106-110 bpm. NG tube to LIS, clamped for 45 min post lactulose administration. Abdomen distended with hypo BTs x4. Lopez catheter in place and draining clear aleah/orange urine. 3+ pitting edema to BLEs. Sedation vacation done at 1200, pt opened eyes on command but was unable to follow any other directions. Pt became increasingly agitated, attempted to sit up in bed, pulling at wrist restraints, and shaking head/biting ET tube. Unable to redirect or console, sedation restarted at 1315. Dr. Bolaños updated on sedation vacation results. No BM thus far this shift. Bed alarm on for safety. Call light within reach. Turning every 2 hours. RASS -2/-3 at this time with propofol 15 mcg/kg/min and fentanyl 0.6 mcg/kg/hr.
--- NOTE | 2020-12-11 14:09 | P.PN_ITS ---
Subjective Subjective Date Patient Seen: 12/11/20 Time Patient Seen: 14:09 Interval history: Juan Carlos albarran is a 65-year-old gentleman with a history of hep C cirrhosis and prior episodes of hepatic encephalopathy who was combative in the emergency room, and ultimately intubated for further evaluation with imaging. He is admitted with likely hepatic encephalopathy. Sedation trial was attempted but the patient was not following commands and was still attempting to be combative. He had a rectal dose of lactulose yesterday, he had not had a bowel movement as of early this afternoon. Did start oral lactulose through his NG tube as there was only a small amount of output. Exam Vital Signs (past 8 hours): - 12/11/20 07:00 12/11/20 08:00 12/11/20 09:00 Temperature 97.9 F Pulse Rate 77 76 74 Respiratory Rate 16 16 16 Blood Pressure 114/59 L 105/61 96/56 L Pulse Oximetry 100 100 99 12/11/20 10:00 12/11/20 11:00 12/11/20 12:00 Temperature 98.6 F Pulse Rate 75 104 H 74 Respiratory Rate 16 16 16 Blood Pressure 101/57 L 95/60 116/70 Pulse Oximetry 99 99 99 12/11/20 13:00 Temperature Pulse Rate 77 Respiratory Rate 17 Blood Pressure 117/66 Pulse Oximetry 99 Fraction of Inspired Oxygen 0.30 Oxygen Delivery Method Mechanical Ventilation Oxygen Flow Rate 30 Narrative Exam Narrative: GENERAL APPEARANCE: Chronically ill-appearing, obese male, intubated and sedated within NG tube and ET tube in place. SKIN: Inspection of the skin reveals no rashes, ulcerations or petechiae. HEENT: Normocephalic atraumatic, extraocular muscles are intact, oropharynx is clear and mucous membranes are dry. There is a dried blood around the ET tube. NECK: Supple and symmetric. There was no thyroid enlargement, and no tenderness, or masses were felt. CHEST: Normal AP diameter and normal contour without any kyphoscoliosis. LUNGS: Auscultation of the lungs revealed diminished breath sounds bilaterally but no wheezing, rhonchi, or rales. CARDIOVASCULAR: There was a tachycardic rate and regular rhythm without any murmurs, gallops, rubs. Peripheral pulses were 2+ and symmetric. ABDOMEN: Soft and nondistended, difficult to assess of ascites is present given obesity. MUSCULOSKELETAL: No obvious joint effusions or deformities. EXTREMITIES: No cyanosis, clubbing or edema. NEUROLOGIC: Intubated and sedated, unable to accurately assess. He moves his bilateral lower extremities and wiggles his toes, but is not currently following commands on propofol. Objective Labs Result Diagrams: 12/11/20 04:35 12/11/20 04:35 Labs: Laboratory Results - last 24 hr 12/10/20 12/10/20 12/10/20 13:15 13:45 14:50 WBC RBC Hgb Hct MCV MCH MCHC RDW Plt Count Neut % (Auto) Lymph % (Auto) [place] % (Auto) Eos % (Auto) Baso % (Auto) Neut # (Auto) Lymph # (Auto) [place] # (Auto) Eos # (Auto) Baso # (Auto) ABG pH 7.39 ABG pCO2 39.3 ABG pO2 278 H* ABG HCO3 24 ABG Total CO2 25 ABG O2 Saturation 100 ABG Base Excess -1.0 FiO2 80 Sodium Potassium Chloride Carbon Dioxide BUN Creatinine Estimated GFR BUN/Creatinine Ratio Glucose Lactate Calcium Phosphorus Magnesium Total Bilirubin Conjugated Bilirubin Unconjugated Bilirubin AST ALT Alkaline Phosphatase Total Protein Albumin Globulin Albumin/Globulin Ratio TSH 1.63 Urine Color Urine Appearance Urine pH Ur Specific Strong Urine Protein Urine Glucose (UA) Urine Ketones Urine Occult Blood Urine Nitrate Urine Bilirubin Urine Urobilinogen Ur Leukocyte Esterase Urine RBC Urine WBC Urine Bacteria Ur Culture Indicated? Nasal Screen MRSA (PCR) U Opiates 300ng/mL cut Ur Oxycodone Screen Urine Methadone Screen Ur Barbiturates Screen U Tricyclic Antidepress Ur Phencyclidine Scrn Ur Amphetamines Screen U Methamphetamines Scrn Ur MDMA Scrn (Ecstasy) U Benzodiazepines Scrn Urine Cocaine Screen U Marijuana (THC) Screen SARS-CoV-2 (PCR) Negative 12/10/20 12/10/20 12/10/20 15:40 15:40 15:49 WBC RBC Hgb Hct MCV MCH MCHC RDW Plt Count Neut % (Auto) Lymph % (Auto) [place] % (Auto) Eos % (Auto) Baso % (Auto) Neut # (Auto) Lymph # (Auto) [place] # (Auto) Eos # (Auto) Baso # (Auto) ABG pH ABG pCO2 ABG pO2 ABG HCO3 ABG Total CO2 ABG O2 Saturation ABG Base Excess FiO2 Sodium Potassium Chloride Carbon Dioxide BUN Creatinine Estimated GFR BUN/Creatinine Ratio Glucose Lactate 4.3 H* Calcium Phosphorus Magnesium Total Bilirubin Conjugated Bilirubin Unconjugated Bilirubin AST ALT Alkaline Phosphatase Total Protein Albumin Globulin Albumin/Globulin Ratio TSH Urine Color Yellow Urine Appearance Clear Urine pH 5.0 Ur Specific Strong 1.020 Urine Protein 1+ H Urine Glucose (UA) Trace H Urine Ketones Negative Urine Occult Blood 3+ H Urine Nitrate Negative Urine Bilirubin Negative Urine Urobilinogen 0.2 Ur Leukocyte Esterase Negative Urine RBC 10-30/hpf H Urine WBC None seen Urine Bacteria None seen Ur Culture Indicated? Cult not indicated Nasal Screen MRSA (PCR) U Opiates 300ng/mL cut Negative Ur Oxycodone Screen Negative Urine Methadone Screen Negative Ur Barbiturates Screen Negative U Tricyclic Antidepress Negative Ur Phencyclidine Scrn Negative Ur Amphetamines Screen Negative U Methamphetamines Scrn Negative Ur MDMA Scrn (Ecstasy) Negative U Benzodiazepines Scrn Negative Urine Cocaine Screen Negative U Marijuana (THC) Screen Positive H SARS-CoV-2 (PCR) 12/10/20 12/11/20 12/11/20 17:41 04:35 04:35 WBC 8.7 RBC 2.72 L Hgb 9.2 L Hct 26.8 L MCV 98.3 MCH 33.8 MCHC 34.4 RDW 16.4 H Plt Count 63 L Neut % (Auto) 76.2 H Lymph % (Auto) 5.9 L [place] % (Auto) 16.2 H Eos % (Auto) 1.1 L Baso % (Auto) 0.6 Neut # (Auto) 6600 Lymph # (Auto) 500 L [place] # (Auto) 1400 H Eos # (Auto) 100 Baso # (Auto) 100 ABG pH ABG pCO2 ABG pO2 ABG HCO3 ABG Total CO2 ABG O2 Saturation ABG Base Excess FiO2 Sodium 133 L Potassium 4.0 Chloride 107 Carbon Dioxide 24 BUN 48 H Creatinine 1.64 H Estimated GFR 42.6 L BUN/Creatinine Ratio 29.3 H Glucose 156 H Lactate Calcium 8.3 L Phosphorus 4.1 H Magnesium 2.3 Total Bilirubin 4.3 H Conjugated Bilirubin 0.0 Unconjugated Bilirubin 3.8 H AST 67 H ALT 36 Alkaline Phosphatase 130 H Total Protein 6.0 L Albumin 2.4 L Globulin 3.6 Albumin/Globulin Ratio 0.7 L TSH Urine Color Urine Appearance Urine pH Ur Specific Strong Urine Protein Urine Glucose (UA) Urine Ketones Urine Occult Blood Urine Nitrate Urine Bilirubin Urine Urobilinogen Ur Leukocyte Esterase Urine RBC Urine WBC Urine Bacteria Ur Culture Indicated? Nasal Screen MRSA (PCR) Negative for mrsa U Opiates 300ng/mL cut Ur Oxycodone Screen Urine Methadone Screen Ur Barbiturates Screen U Tricyclic Antidepress Ur Phencyclidine Scrn Ur Amphetamines Screen U Methamphetamines Scrn Ur MDMA Scrn (Ecstasy) U Benzodiazepines Scrn Urine Cocaine Screen U Marijuana (THC) Screen SARS-CoV-2 (PCR) [facility] Medical History Anasarca Ascites Asthma Elevated brain natriuretic peptide (BNP) level Hepatitis C Hypertension Liver cancer Liver cirrhosis Surgical History History of surgery of liver Family History Father Trauma Mother Sjogrens syndrome Sister No significant medical problems Social History household members: spouse Smoking Status: Former smoker alcohol intake: former Assessment & Plan Assessment & Plan narrative: Patient is a 65-year-old male with chronic hep C cirrhosis, ascites, history of resection of hepatocellular carcinoma, chronic kidney disease, asthma sent to emergency department for acute confusion. Admit ja for hepatic encephalopathy. 1. Acute hepatic encephalopathy - patient intubated in the ER for combativeness. He appears dehydrated with an elevated hemoglobin and compared to his baseline although he does have some possible coffee-ground appearance to his NG tube output. Will start on Protonix for now, but suspect this coffee-ground appearance may be secondary to traumatic ET tube placement, although he is at risk for GI bleeding with his hepatic cirrhosis. -no overt pathology identified on abdominal CT or CXR. Head CT also unremarkable. -normal leukocytosis, and CT imaging shows a small amount of ascites. abdominal ultrasound with no fluid for abdominal paracentesis. -continue fentanyl propofol for now for sedation, daily weaning trials, may take some time until bowel movements are more frequent after initiating lactulose on top of his liver cirrhosis. -ammonia level elevated on admission higher than previous. Suspect non- compliance with lactulose therapy as these were not in the medication bag he brought in. continue lactulose via NG tube. -troponin within normal limits. rehydated on admission, will continue IV fluids today and continue to hold diuresis. -consider rifaximin given likely compliance issues. 2. hepatitis-C cirrhosis - bilirubin has improved since previous admission now at 4.2. Appears stable at this time. 3. Cirrhotic ascites - will hold home bumex and aldactone given dehydrationon admission. no abdominal fluid for paracentesis with bedside ultrasound. 4. LALITHA on Chronic kidney disease III - - suspect secondary to dehydration, slight improvement from 1.67 to 1.64 today, will continue to follow. 5. Elevated lactic acid - continue rehydration, continue to follow until <2. Code: Full, unable to discuss but previously discussed during his last admission. Dispo: ADmit to ICU. DVT: SCDs given possible UGI bleeding and cirrhosis. will continue to monitor at this time. I spent 30 minutes providing critical care management this patient. This excludes time spent in performing separately billed procedures.
--- NOTE | 2020-12-11 16:51 | DIET.PN ---
Dietary Progress Note Assessment: 65y M c CKD3 and hep C liver cirrhosis admitted for hepatic encephalopathy c agitation requiring intubation for imaging studies referred to nutrition for NPO on vent status. Pt has been on ventilator for 26h, failed sedation vacation this afternoon. HT: 180.3cm WT: 114kg UBW: 125kg BMI: 35.1 Labs:eGFR 42.6 L, Cr 1.64 H, lactate 4.3 H, phos 4.1 H, TBili 4.3 H, ammonia 81 H, MAP >70 Nutrition Diagnosis: inadequate protein calorie intake r/t inability to consume POs aeb pt NPO on ventilator x1d. Interventions: 1. Recc pt begin continuous enteral nutrition if not extubated after 48h of initiation of mechanical ventilation with MAP >65 and stable lactate. Recc continuous EN Glucerna 1.5 starting at 20mL/h for first 12h titrating to goal of 40mL/h as tolerated c 350mL free water flushes q4h. Goal formula rate and flushes provide 1440 kcal (20kcal/kg), 79g PRO (0.9g/kg per renal), and 2829mL free water (33mL/kg). Propofol running at current 15mcg/kg/h provides 271kcal/d. Diet Order: NPO EER: 1700kcal (20kcal/kg per obese), 80gPRO (0.9g/kg per renal) Pt Goals: if pt not extubated by 12/12/20 at 2pm and MAP/lactate stable, recc initiating nutrition support. Monitoring/Evaluations: following daily, pt shows significant weight loss since last admit, RD to reassess once extubated or if EN initiated.
[2020-12-11] MEDS: propofoL 1,000 MG/100 ML VIAL 10.848 MG IV (18:24)
[2020-12-11] MEDS: fentaNYL 1,000 MCG in DEXTROSE 5% IN WATER 250 ML 24.408 ML IV (19:09)
--- NOTE | 2020-12-11 19:18 | PC.NURSE ---
Evening shift note: Patient on vent and sedated on propofol and tentanyl, RASS score -3 on evening assessment, have needed to titrate medications up for agitation during oral care, after belgica-care, and repositioning, see mar for titration history. Current vent settings are FiO2 30% SpO2 96-99%, RR 16, PEEP 5 and Tidal volume 500. Opens eyes to voice and moves in bed, attempting to sit up, pulls at restraints, but does not focus or track, or follow directions. Soft wrist restraints in place bilaterally, per provider order. Lung sounds are clear, but decreased, minimal secretions that are clear suctioned via ET tube. Tele is SR in the 70s, occasionally up to mid 108s, without sustaining. NG tube to LIS, dark possibly coffee ground output. Abdomen is distended with hypoactive bowel tones in all 4 Quadrants. Lopez catheter is in place, patent and draining clear, dark yellow/aelah urine. 3+ pitting edema to BLE, no results from Lactulose administered during dayshift, will administer additional 20mg at 2100. Bed low and locked, alarm on for safety, call light within reach, repositioned Q 2hrs, will continue to monitor.
[2020-12-12] VITALS (167 sets, daily range): BP systolic 93–145; BP diastolic 50–71; PULSE 60–102; RESP 0–27; TEMP 35.9–36.9; O2SAT 95–100
[2020-12-12] MEDS: SODIUM CHLORIDE 0.9% 1,000 ML 100 ML IV (00:25)
[2020-12-12] MEDS: propofoL 1,000 MG/100 ML VIAL 13.56 MG IV (04:29)
[2020-12-12 05:08] LABS: Add Manual Diff / Slide Review NO; Basophils Absolute Auto 100 /uL (0-100); Basophils Percent Auto 1.4 % (0-2); Eosinophils Absolute Auto 200 /uL (0-450); Eosinophils Percent Auto 2.7 % (2-4); Hemoglobin 9.8 g/dL (13.5-17.5); Lymphocytes Absolute Auto 600 /uL (1100-4500); Lymphocytes Percent Auto 7.8 % (25-40); Mean Corpuscular HGB Conc 33.8 % (30-36); Mean Corpuscular Hemoglobin 33.7 PG (26-34); Mean Corpuscular Volume 99.7 fL (80-100); Monocytes Absolute Auto 1300 /uL (0-900); Monocytes Percent Auto 17.7 % (3-14); Neutrophils Absolute Auto 5100 /uL (1500-7000); Neutrophils Percent Auto 70.4 % (50-75); Platelet Count 62 X10^3/uL (150-400); Red Blood Cell Count 2.91 X10^6/uL (4.5-5.9); Red Cell Distribution Width 16.5 % (11.6-14.8); White Blood Cell Count 7.3 X10^3/uL (4.5-11.0)
[2020-12-12 05:21] LABS: Lactate (Lactic Acid) 1.4 mmol/L (0.7-2.1)
[2020-12-12 05:31] LABS: Alanine Aminotransferase 34 IU/L (<50); Albumin 2.4 g/dL (3.5-5.0); Albumin Globulin Ratio 0.6 (1.0-2.8); Alkaline Phosphatase 134 U/L (38-126); Aspartate Aminotransferase 62 IU/L (17-59); Bilirubin Total 3.1 mg/dL (0.2-1.3); Bilirubin Unconjugated 2.6 mg/dL (0.0-1.1); Blood Urea Nitrogen 48 mg/dL (9-20); Carbon Dioxide 25 mmol/L (22-32); Chloride 107 mmol/L (98-107); Estimated Glomerular Filt Rate 45.5 mL/min (>60); Globulin 3.8 g/dL (1.7-4.1); Glucose 107 mg/dL (80-110); HEMOLYSIS < 15 (0-50); Magnesium 2.3 mg/dL (1.6-2.3); Phosphorous 2.8 mg/dL (2.3-3.7); Potassium 3.8 mmol/L (3.4-5.1); Sodium 134 mmol/L (137-145); Total Protein 6.2 g/dL (6.3-8.2)
--- NOTE | 2020-12-12 06:55 | PC.NURSE ---
night shift manager note - Patient is on ventilator, FIO2 30%, TV 500, RR 16, PEEP 5, he has been mostly sinus but tachy at times this AM. SpO2 >96%. Patient has been synchronous with the vent. Patient is sedated on propofol gtt, titrating between 15-35 mcg/kg/min, and fentanyl gtt between 0.7-1 mcg/kg/hr to maintain RASS. Patient became more alert throughout the night, in the AM patient was able to squeeze hand and follow some commands. NGT to LIS - 150 output green bile, urine output - 375 dark yellow, no stools, soft restraints on to keep patient from pulling at his lines. PT turned every 2 hours with two to three person assist.
[2020-12-12] MEDS: fentaNYL 1,000 MCG in DEXTROSE 5% IN WATER 250 ML 30.51 ML IV (07:05)
[2020-12-12] MEDS: LACTULOSE 20 GM/30 ML SOLUTION 30 GM PO ×2 (08:11→20:55)
[2020-12-12] MEDS: PANTOPRAZOLE 40 MG VIAL IV (08:11)
[2020-12-12] MEDS: propofoL 1,000 MG/100 ML VIAL 23.73 MG IV ×2 (08:40→14:02)
[2020-12-12] MEDS: SODIUM CHLORIDE 0.9% 1,000 ML 21 ML IV (10:27)
--- NOTE | 2020-12-12 11:22 | PM.PN.1 ---
Subjective Subjective Date Patient Seen: 12/12/20 Time Patient Seen: 11:22 Interval history: Juan Carlos albarran is a 65-year-old gentleman with a history of hep C cirrhosis and prior episodes of hepatic encephalopathy who was combative in the emergency room, and ultimately intubated for further evaluation with imaging. He is admitted with likely hepatic encephalopathy. Sedation trial was attempted but he at times was too somnolent and others slightly agitated. Off of sedation he follows commands, moves all extremities. No bowel movements, lactulose increased today. Will start tube feeds today if he is unable to be extubated, fluids decreased due to slight worsening of his LE edema. Exam Vital Signs (past 8 hours): - 12/12/20 04:00 12/12/20 04:05 12/12/20 05:00 Temperature 97.6 F Pulse Rate 66 66 70 Respiratory Rate 16 16 16 Blood Pressure 109/58 L 121/62 Pulse Oximetry 100 100 12/12/20 05:05 12/12/20 05:10 12/12/20 06:00 Temperature Pulse Rate 82 72 83 Respiratory Rate 25 H 21 17 Blood Pressure 135/63 Pulse Oximetry 99 99 12/12/20 07:00 12/12/20 08:00 12/12/20 09:00 Temperature 97.8 F Pulse Rate 77 80 79 Respiratory Rate 17 17 16 Blood Pressure 135/67 136/66 117/57 L Pulse Oximetry 100 98 98 12/12/20 10:00 Temperature Pulse Rate 69 Respiratory Rate 16 Blood Pressure 113/64 Pulse Oximetry 100 Fraction of Inspired Oxygen 0.3 Oxygen Delivery Method Mechanical Ventilation Oxygen Flow Rate 30 Narrative Exam Narrative: GENERAL APPEARANCE: Chronically ill-appearing, slightly jaundiced, obese male, intubated and sedated within NG tube and ET tube in place. SKIN: Inspection of the skin reveals no rashes, ulcerations or petechiae. HEENT: Normocephalic atraumatic, extraocular muscles are intact, oropharynx is clear and mucous membranes are dry. There is a small amount of dried blood around the ET tube. NECK: Supple and symmetric. There was no thyroid enlargement, and no tenderness, or masses were felt. CHEST: Normal AP diameter and normal contour without any kyphoscoliosis. LUNGS: Auscultation of the lungs revealed diminished breath sounds bilaterally due to shallow respirations but no wheezing, rhonchi, or rales. CARDIOVASCULAR: There was a regular rate and regular rhythm without any murmurs, gallops, rubs. Peripheral pulses were 2+ and symmetric. ABDOMEN: Soft and nondistended. MUSCULOSKELETAL: No obvious joint effusions or deformities. EXTREMITIES: No cyanosis, clubbing. 1+ peripheral pitting edema bilaterally. NEUROLOGIC: Intubated and sedated, during sedation trials He moves all extremities and follows commands. Objective Labs Result Diagrams: 12/12/20 04:45 12/12/20 04:45 Labs: Laboratory Results - last 24 hr 12/12/20 12/12/20 12/12/20 04:45 04:45 04:45 WBC 7.3 RBC 2.91 L Hgb 9.8 L Hct 29.0 L MCV 99.7 MCH 33.7 MCHC 33.8 RDW 16.5 H Plt Count 62 L Neut % (Auto) 70.4 Lymph % (Auto) 7.8 L [place] % (Auto) 17.7 H Eos % (Auto) 2.7 Baso % (Auto) 1.4 Neut # (Auto) 5100 Lymph # (Auto) 600 L [place] # (Auto) 1300 H Eos # (Auto) 200 Baso # (Auto) 100 Sodium 134 L Potassium 3.8 Chloride 107 Carbon Dioxide 25 BUN 48 H Creatinine 1.55 H Estimated GFR 45.5 L BUN/Creatinine Ratio 31.0 H Glucose 107 Lactate 1.4 Calcium 8.0 L Phosphorus 2.8 D Magnesium 2.3 Total Bilirubin 3.1 H Conjugated Bilirubin 0.0 Unconjugated Bilirubin 2.6 H AST 62 H ALT 34 Alkaline Phosphatase 134 H Total Protein 6.2 L Albumin 2.4 L Globulin 3.8 Albumin/Globulin Ratio 0.6 L [facility] Medical History Anasarca Ascites Asthma Elevated brain natriuretic peptide (BNP) level Hepatitis C Hypertension Liver cancer Liver cirrhosis Surgical History History of surgery of liver Family History Father Trauma Mother Sjogrens syndrome Sister No significant medical problems Social History household members: spouse Smoking Status: Former smoker alcohol intake: former Assessment & Plan Assessment & Plan narrative: Patient is a 65-year-old male with chronic hep C cirrhosis, ascites, history of resection of hepatocellular carcinoma, chronic kidney disease, asthma sent to emergency department for acute confusion. Admitted for hepatic encephalopathy. 1. Acute hepatic encephalopathy - patient intubated in the ER for combativeness. He appeared dehydrated with an elevated hemoglobin and compared to his baseline although he does have some possible coffee-ground appearance to his NG tube output. Started on protonix empirically, but no further evidence of GI bleeding. will decrease to 20 mg IV daily. -no overt pathology identified on abdominal CT or CXR. Head CT also unremarkable. -no leukocytosis, and CT imaging shows a small amount of ascites. abdominal ultrasound at bedside with no fluid for abdominal paracentesis on admission. -continue fentanyl propofol for now for sedation, daily weaning trials, may take some time until bowel movements are more frequent after initiating lactulose on top of his liver cirrhosis. have increased his lactulose today. -ammonia level elevated on admission higher than previous. Suspect non-compliance with lactulose therapy as these were not in the medication bag he brought in. continue lactulose via NG tube. -troponin within normal limits. rehydated on admission, will continue IV fluids today and continue to hold diuresis. -consider rifaximin given likely compliance issues. 2. hepatitis-C cirrhosis - bilirubin has improved since previous admission. 3. Cirrhotic ascites - will continue to hold home bumex and aldactone given dehydration on admission. now with mild lower extremity edema. Consider resuming tomorrow. 4. LALITHA on Chronic kidney disease III - improving - suspect secondary to dehydration, slight improvement from 1.67 to 1.55, will continue to follow. Baseline appears to be around 1.3. 5. Elevated lactic acid, resolved. - continued rehydration until lactate <2. Code: Full, unable to discuss but previously discussed during his last admission. Dispo: ADmitted to ICU, PT/OT after extubation. DVT: SCDs given possible UGI bleeding and cirrhosis. will continue to monitor at this time. FEN/GI: to start tube feedings today if not extubated, appreciate dietary consultation. I spent 30 minutes providing critical care management this patient. This excludes time spent in performing separately billed procedures.
--- NOTE | 2020-12-12 14:36 | PC.NURSE ---
Day Shift Note Patient intubated and sedated on propofol and fentanyl on AM assessment. RASS -2/-3. Lungs clear bilaterally. Continues on ventilator settings of FiO2 0.30, PEEP 5, RR 16, and TV 500. SpO2 99-100%. SR in the 60-70s. Soft wrist restraints in place bilaterally. Lopez catheter in place draining clear orange urine. NG tube to LIS, lactulose administered down NG tube. No BM yet. Turning every 2 hours. Sedation turned off for sedation vacation at 0950. Pt awake and able to follow directions at about 1030, oriented to situation, able to answer questions by nodding or shaking head yes or no. Denied pain during this time. CPAP trial started at 1040 by RT. During trial pt alternated between being too sedated (drifting off to sleep with eyes closed and requiring verbal prompts to breathe) and agitation (very difficult to redirect/calm, only intermittently following instructions). Thus breathing trial was ended at 1052. Pt initially calm after being placed back on ventilator support so sedation was left off but was ultimately restarted at 1200 for increasing restlessness, agitation, pulling at restraints, and biting tube. Pt currently at a RASS of -3, propofol at 35 mcg/kg/min and fentanyl at 0.6 mcg/kg/hr. Bed alarm on for safety. Call light within reach.
--- NOTE | 2020-12-12 18:05 | PC.NURSE ---
Evening shift note: Pt resting in bed with eyes closed, intubated and sedated on propofol/fentanyl on assessment, RASS score -3, lungs clear/diminished bilaterally. Ventilator set at FiO2 30%, PEEP 5, RR 15, TV500, SpO2 99-100%. Telemetry shows SR in the 60-70s. Restraints in place bilaterally, pt tolerating without any ill effects. Lopez catheter in place, patent and draining clear orange urine. Tube feeding started with Glucerna 1.5 at 20ml/hr, goal of 40ml/hr,titrate 10ml shift until goal is reached, max goal of 960ml a day, 350ml free water flush every 4 hours. NG tube to LIS following feedings, lactulose administered down NG tube with no results yet. Repositioning pt every 2 hours. Sedation vacation done during dayshift today, pt needed to be placed back on ventilator support, will attempt again tomorrow. Bed bath given with linen change during evening shift, bed alarm on, bed low and locked for safety, call light within reach, will continue to monitor.
[2020-12-12] MEDS: propofoL 1,000 MG/100 ML VIAL 16.95 MG IV (18:26)
[2020-12-12] MEDS: fentaNYL 1,000 MCG in DEXTROSE 5% IN WATER 250 ML 21.357 ML IV (20:07)
[2020-12-13] VITALS (136 sets, daily range): BP systolic 94–137; BP diastolic 50–67; PULSE 60–105; RESP 15–31; TEMP 35.9–37; O2SAT 96–100
[2020-12-13] MEDS: propofoL 1,000 MG/100 ML VIAL 16.95 MG IV (00:10)
--- NOTE | 2020-12-13 00:50 | PC.NURSE ---
Pt. had a residual of 310 ml, 200 ml returned and tube feeding on hold, will recheck in a couple hrs.
[2020-12-13 05:20] LABS: Add Manual Diff / Slide Review NO; Basophils Absolute Auto 100 /uL (0-100); Basophils Percent Auto 1.1 % (0-2); Eosinophils Absolute Auto 200 /uL (0-450); Hematocrit 28.7 % (41-53); Hemoglobin 9.8 g/dL (13.5-17.5); Lymphocytes Absolute Auto 600 /uL (1100-4500); Lymphocytes Percent Auto 9.2 % (25-40); Mean Corpuscular HGB Conc 34.1 % (30-36); Mean Corpuscular Hemoglobin 33.7 PG (26-34); Monocytes Absolute Auto 1300 /uL (0-900); Monocytes Percent Auto 19.5 % (3-14); Neutrophils Absolute Auto 4400 /uL (1500-7000); Neutrophils Percent Auto 67.2 % (50-75); Platelet Count 58 X10^3/uL (150-400); Red Blood Cell Count 2.89 X10^6/uL (4.5-5.9); Red Cell Distribution Width 16.2 % (11.6-14.8); White Blood Cell Count 6.5 X10^3/uL (4.5-11.0)
[2020-12-13 05:35] LABS: Alanine Aminotransferase 32 IU/L (<50); Albumin 2.2 g/dL (3.5-5.0); Albumin Globulin Ratio 0.6 (1.0-2.8); Alkaline Phosphatase 133 U/L (38-126); Aspartate Aminotransferase 58 IU/L (17-59); BUN Creatinine Ratio 29.1 (6-22); Bilirubin Total 2.8 mg/dL (0.2-1.3); Blood Urea Nitrogen 44 mg/dL (9-20); Calcium 8.2 mg/dL (8.4-10.2); Carbon Dioxide 25 mmol/L (22-32); Chloride 106 mmol/L (98-107); Estimated Glomerular Filt Rate 46.9 mL/min (>60); Globulin 3.6 g/dL (1.7-4.1); Glucose 111 mg/dL (80-110); HEMOLYSIS < 15 (0-50); Magnesium 2.3 mg/dL (1.6-2.3); Phosphorous 2.9 mg/dL (2.3-3.7); Potassium 3.8 mmol/L (3.4-5.1); Sodium 134 mmol/L (137-145); Total Protein 5.8 g/dL (6.3-8.2)
[2020-12-13] MEDS: propofoL 1,000 MG/100 ML VIAL 13.56 MG IV ×3 (06:02→21:07)
--- NOTE | 2020-12-13 06:24 | PC.NURSE ---
Talk to Jose Yu in person regarding pt's tube feeding being off since 29 due to high residual (See tube feeding flow sheet)Re. Pt. does have hypoactive bowel tones and abdomen is soft but not distended. Pt. does have mild anasarca. Pt. also has not have any stools with increasing Lactulose dose. Recommend KUB to assess for bowel obstruction. Gigi will look into it possibly even doing an ultrasound.
[2020-12-13 07:22] LABS: Ammonia (NH3) 17 umol/L (9-30)
[2020-12-13] MEDS: fentaNYL 1,000 MCG in DEXTROSE 5% IN WATER 230 ML 21.7 ML IV ×2 (08:33→22:57)
--- NOTE | 2020-12-13 08:55 | PC.NURSE ---
Addendum entered by Jaqueline Cage R.N. 12/13/20 14:52: KUB XR completed, shows mild to moderate fecal impaction and constipation, verbal order for lactulose enema placed, waiting for pharmacy to mix. Pt resting quietly on sedation and intubation, bed alarm on, low and locked, call light within reach, will continue to monitor Addendum entered by Jaqueline Cage R.N. 12/13/20 12:07: Pt able to stay off vent for 105 minutes, tolerated well. Per RT, anticipate being able to extubate pt tomorrow. Restarted at 1145 Propofol and Fentaynl as noted in emar. Addendum entered by Jaqueline Cage R.N. 12/13/20 11:04: Pt tolerating breathing trial, RT advised to leave pt off vent as long as pt tolerates, goal is 90 minutes. Will continue to monitor. Original Note: Day shift note: Pt resting in bed with eyes closed, intubated and sedated on propofol/fentanyl on assessment, RASS score -3, lungs clear/diminished bilaterally. Ventilator set at FiO2 30%, PEEP 5, RR 15, TV500, SpO2 99-100%. Telemetry shows SR in the 60-70s. Restraints in place bilaterally, pt tolerating without any ill effects. Lopez catheter in place, patent and draining clear orange urine. Sedation turned off for sedation vacation at 0850.
[2020-12-13 09:42] LABS: Ammonia (NH3) 25 umol/L (9-30)
[2020-12-13] MEDS: LACTULOSE 20 GM/30 ML SOLUTION 30 GM PO ×2 (09:50→21:08)
[2020-12-13] MEDS: PANTOPRAZOLE 40 MG VIAL 20 MG IV (09:51)
--- NOTE | 2020-12-13 13:35 | DI.RAD.S_ITS ---
PROCEDURE: XR KUB INDICATIONS: gastric motility TECHNIQUE: Two views of the abdomen acquired. COMPARISON: None. FINDINGS: Surgical changes and devices: None. Bowel: Bowel gas pattern is nonobstructive. Significant fecal stasis throughout the colon is seen distending rectum suggestive of fecal impaction. No gross peritoneal free air. Soft tissues: No suspicious abdominal calcifications. Visualized solid organ contours appear normal in size. Bones: No suspicious bony lesions. IMPRESSION: Finding is suggestive of mild to moderate constipation and fecal impaction. No gross free air. Dictated by: Silvano Charles M.D. on 12/13/2020 at 14:34 Approved by: Silvano Charles M.D. on 12/13/2020 at 14:35
--- NOTE | 2020-12-13 16:38 | PC.NURSE ---
Evening Shift Note: Pt is intubated and sedated on propofol and fentanyl gtts. Pt grimaces to noxious stimuli, moves arms with oral care. Pt is intubated, oral care provided, ETT tube moved to avoid pressure on lips/tongue. Skin checked, heals floated, devices checked to avoid device injury. Pt is on a waffle cushion, bed turned to the right to relieve pressure. Pt is intubated and sedated. PRVC, FiO2 30%, PEEP 5, TV 500, RR 15, pt is breathing with the ventilator at 15. SPO2 99%. Lungs clear and diminished. Pt is in SR, HR 60s, BP 121/67. Pulses strong. Edema in bilateral LE. Pt's tube feeds have been on hold for high residuals. KUB today showing impaction. Discussed findings with dietitian and continued need for nutrition. Discussed that pt will be receiving lactulose enema, hoping to promote stooling for improved transit time, digestion and ammonia clearance to improve mentation. Bowel sounds auscultated in all quadrants. Indwelling srivastava catheter in place. Draining clear yellow urine. Adequate volume. Soft-wrist restraints in place, circulation checked. Will continue to monitor, notify MD with changes.
--- NOTE | 2020-12-13 16:39 | DIET.PN ---
Dietary Progress Note 65y M c CKD3 and hep C liver cirrhosis admitted for hepatic encephalopathy c agitation requiring intubation for imaging studies referred to nutrition for NPO on vent status. Pt KUB showing fecal impaction c moderate stool load in colon scheduled for lactulose enema this evening. Pt not tolerating TF found to have >300cc residuals yesterday so TF paused. Recc restarting TF at trophic rate 10mL/h after enema to preserve gut function and increase as tolerated per original reccs below. Pts lactate WNL and MAP >80. HT: 180.3cm WT: 115kg UBW: 125kg BMI: 35.4 Labs:eGFR 46.9 L, Cr 1.51 H, lactate 1.4 WNL, TBili 2.8 H, ammonia 25, MAP >80 Nutrition Diagnosis: inadequate protein calorie intake r/t inability to consume POs aeb pt NPO on ventilator x3d. Interventions: 1. Recc starting trophic TF once lactulose enema productive to preserve gut function and reduce risk of bacterial translocation. 2. Recc advancing to continuous EN Glucerna 1.5 starting at 20mL/h for first 12h titrating to goal of 40mL/h as tolerated c 350mL free water flushes q4h. Goal formula rate and flushes provide 1440 kcal (20kcal/kg), 79g PRO (0.9g/kg per renal), and 2829mL free water (33mL/kg). Propofol running at current 15mcg/kg/h provides 271kcal/d. Diet Order: NPO EER: 1700kcal (20kcal/kg per obese), 80gPRO (0.9g/kg per renal) Pt Goals: Pt will tolerate goal TF by evening of 12/14/20 or if extubated, will tolerate mechanical soft diet c focus on protein foods c optional ONS if POs <75% to support prolonged NPO status. Monitoring/Evaluations: RD to check in c pt upon return to office Wednesday am.
--- NOTE | 2020-12-13 17:22 | PM.PN.1 ---
Subjective Subjective Date Patient Seen: 12/13/20 Time Patient Seen: 10:00 Interval history: Juan Carlos Guzmán is a 65-year-old gentleman with a history of hep C cirrhosis and prior episodes of hepatic encephalopathy who was combative in the emergency room, and ultimately intubated for further evaluation with imaging. He is admitted with likely hepatic encephalopathy. On his sedation holidays weaning trials, he is poorly tolerated and becomes increasingly anxious, tachypneic, and needs to be returned to sedation. Today however he was able to tolerate being off sedation and weaning trials for over an hour. He has been having significant retention with tube feeds with up to 300 cc residuals. Exam Vital Signs (past 8 hours): - 12/13/20 09:25 12/13/20 09:30 12/13/20 09:35 Temperature Pulse Rate 67 67 68 Respiratory Rate 15 15 15 Blood Pressure Pulse Oximetry 99 100 99 12/13/20 09:40 12/13/20 09:45 12/13/20 09:50 Temperature Pulse Rate 72 69 68 Respiratory Rate 18 15 15 Blood Pressure Pulse Oximetry 99 99 99 12/13/20 09:55 12/13/20 10:00 12/13/20 10:05 Temperature 97.8 F Pulse Rate 70 71 72 Respiratory Rate 15 31 H 20 Blood Pressure 137/64 Pulse Oximetry 99 99 99 12/13/20 10:10 12/13/20 10:15 12/13/20 10:20 Temperature Pulse Rate 71 72 73 Respiratory Rate 16 20 23 Blood Pressure Pulse Oximetry 98 100 98 12/13/20 10:25 12/13/20 10:30 12/13/20 10:35 Temperature Pulse Rate 77 74 78 Respiratory Rate 20 23 25 H Blood Pressure Pulse Oximetry 100 100 96 12/13/20 10:40 12/13/20 10:45 12/13/20 10:50 Temperature Pulse Rate 79 77 79 Respiratory Rate 19 15 15 Blood Pressure Pulse Oximetry 99 99 99 12/13/20 10:55 12/13/20 11:00 12/13/20 11:05 Temperature 97.7 F Pulse Rate 78 77 77 Respiratory Rate 15 15 15 Blood Pressure 123/58 L Pulse Oximetry 99 100 99 12/13/20 11:10 12/13/20 11:15 12/13/20 11:20 Temperature Pulse Rate 76 77 77 Respiratory Rate 15 15 25 H Blood Pressure Pulse Oximetry 99 99 99 12/13/20 11:25 12/13/20 11:30 12/13/20 11:35 Temperature Pulse Rate 76 76 75 Respiratory Rate 15 15 15 Blood Pressure Pulse Oximetry 99 98 98 12/13/20 11:40 12/13/20 11:45 12/13/20 11:50 Temperature Pulse Rate 74 78 75 Respiratory Rate 15 16 18 Blood Pressure Pulse Oximetry 99 98 98 12/13/20 11:55 12/13/20 12:00 12/13/20 12:05 Temperature 98.4 F Pulse Rate 74 73 72 Respiratory Rate 15 15 17 Blood Pressure 115/57 L Pulse Oximetry 98 98 98 12/13/20 12:10 12/13/20 12:15 12/13/20 12:20 Temperature Pulse Rate 72 73 71 Respiratory Rate 15 15 15 Blood Pressure Pulse Oximetry 98 98 98 12/13/20 12:25 12/13/20 12:30 12/13/20 12:35 Temperature Pulse Rate 71 69 70 Respiratory Rate 15 15 15 Blood Pressure Pulse Oximetry 98 98 98 12/13/20 12:40 12/13/20 12:45 12/13/20 12:50 Temperature Pulse Rate 69 69 68 Respiratory Rate 15 15 15 Blood Pressure Pulse Oximetry 98 98 98 12/13/20 12:55 12/13/20 13:00 12/13/20 13:05 Temperature 97.2 F L Pulse Rate 71 67 68 Respiratory Rate 15 18 15 Blood Pressure 113/58 L Pulse Oximetry 98 99 98 12/13/20 13:10 12/13/20 13:15 12/13/20 13:20 Temperature Pulse Rate 67 68 68 Respiratory Rate 15 15 15 Blood Pressure Pulse Oximetry 98 98 98 12/13/20 13:25 12/13/20 13:30 12/13/20 13:35 Temperature Pulse Rate 68 68 67 Respiratory Rate 15 15 15 Blood Pressure Pulse Oximetry 98 98 98 12/13/20 13:40 12/13/20 13:45 12/13/20 13:50 Temperature Pulse Rate 67 67 71 Respiratory Rate 15 15 15 Blood Pressure Pulse Oximetry 98 98 97 12/13/20 13:55 12/13/20 14:00 12/13/20 14:05 Temperature 98.6 F Pulse Rate 71 70 69 Respiratory Rate 19 15 15 Blood Pressure 127/65 Pulse Oximetry 97 97 98 0305/21 14:10 12/13/20 14:15 12/13/20 15:00 Temperature 98.6 F Pulse Rate 68 67 66 Respiratory Rate 15 15 15 Blood Pressure 111/59 L Pulse Oximetry 98 98 98 12/13/20 16:00 12/13/20 17:00 Temperature 98.3 F 98.5 F Pulse Rate 67 65 Respiratory Rate 15 15 Blood Pressure 121/67 107/59 L Pulse Oximetry 98 99 Fraction of Inspired Oxygen 0.30 Oxygen Delivery Method Mechanical Ventilation Oxygen Flow Rate 30 Narrative Exam Narrative: GENERAL APPEARANCE: Chronically ill-appearing, slightly jaundiced, obese male, intubated and sedated within NG tube and ET tube in place. SKIN: Inspection of the skin reveals no rashes, ulcerations or petechiae. HEENT: Normocephalic atraumatic, extraocular muscles are intact, oropharynx is clear and mucous membranes are dry. There is a small amount of dried blood around the ET tube. NECK: Supple and symmetric. There was no thyroid enlargement, and no tenderness, or masses were felt. CHEST: Normal AP diameter and normal contour without any kyphoscoliosis. LUNGS: Auscultation of the lungs revealed diminished breath sounds bilaterally due to shallow respirations but no wheezing, rhonchi, or rales. CARDIOVASCULAR: There was a regular rate and regular rhythm without any murmurs, gallops, rubs. Peripheral pulses were 2+ and symmetric. ABDOMEN: Soft, nondistended with hypoactive bowel sounds. MUSCULOSKELETAL: No obvious joint effusions or deformities. EXTREMITIES: No cyanosis, clubbing. 1+ peripheral pitting edema bilaterally. NEUROLOGIC: Intubated and sedated; during sedation trials He moves all extremities and follows commands. Objective Labs Result Diagrams: 12/13/20 05:05 12/13/20 05:05 Labs: Laboratory Results - last 24 hr 12/13/20 12/13/20 12/13/20 05:05 05:05 07:00 WBC 6.5 RBC 2.89 L Hgb 9.8 L Hct 28.7 L MCV 99.0 MCH 33.7 MCHC 34.1 RDW 16.2 H Plt Count 58 L Neut % (Auto) 67.2 Lymph % (Auto) 9.2 L [place] % (Auto) 19.5 H Eos % (Auto) 3.0 Baso % (Auto) 1.1 Neut # (Auto) 4400 Lymph # (Auto) 600 L [place] # (Auto) 1300 H Eos # (Auto) 200 Baso # (Auto) 100 Sodium 134 L Potassium 3.8 Chloride 106 Carbon Dioxide 25 BUN 44 H Creatinine 1.51 H Estimated GFR 46.9 L BUN/Creatinine Ratio 29.1 H Glucose 111 H Calcium 8.2 L Phosphorus 2.9 Magnesium 2.3 Total Bilirubin 2.8 H Conjugated Bilirubin 0.0 Unconjugated Bilirubin 2.0 H AST 58 ALT 32 Alkaline Phosphatase 133 H Ammonia 17 Total Protein 5.8 L Albumin 2.2 L Globulin 3.6 Albumin/Globulin Ratio 0.6 L 12/13/20 09:26 WBC RBC Hgb Hct MCV MCH MCHC RDW Plt Count Neut % (Auto) Lymph % (Auto) [place] % (Auto) Eos % (Auto) Baso % (Auto) Neut # (Auto) Lymph # (Auto) [place] # (Auto) Eos # (Auto) Baso # (Auto) Sodium Potassium Chloride Carbon Dioxide BUN Creatinine Estimated GFR BUN/Creatinine Ratio Glucose Calcium Phosphorus Magnesium Total Bilirubin Conjugated Bilirubin Unconjugated Bilirubin AST ALT Alkaline Phosphatase Ammonia 25 Total Protein Albumin Globulin Albumin/Globulin Ratio [facility] Medical History Anasarca Ascites Asthma Elevated brain natriuretic peptide (BNP) level Hepatitis C Hypertension Liver cancer Liver cirrhosis Surgical History History of surgery of liver Family History Father Trauma Mother Sjogrens syndrome Sister No significant medical problems Social History household members: spouse Smoking Status: Former smoker alcohol intake: former Assessment & Plan Assessment & Plan narrative: Patient is a 65-year-old male with chronic hep C cirrhosis, ascites, history of resection of hepatocellular carcinoma, chronic kidney disease, asthma sent to emergency department for acute confusion. Admitted for hepatic encephalopathy. 1. Vent dependent respiratory failure -continue fentanyl propofol for now for sedation, daily weaning trials 2. Acute hepatic encephalopathy - CT head unremarkable. -ammonia level has normalized. However his encephalopathy has significantly improved -continue lactulose -serial ammonia level 3. Tube feed residuals Check KUB 4. hepatitis-C cirrhosis CT chest/abdomen pelvis; revealed interstitial and ground-glass infiltrates bilaterally, cirrhotic liver, small amount of ascites, diverticulosis without diverticulitis, moderate to severe coronary artery disease, 2.2 cm left adrenal nodule demonstrating CT density higher than benign adrenal adenoma and has enlarged since 03/14/2020. Further evaluation with adrenal protocol CT or MRI is suggested Hyperbilirubinemia has improved and the transaminitis has resolved 5. adrenal adenoma For CT abdomen it has enlarged since 03/14/2020. Further evaluation with adrenal protocol CT or MRI is suggested 6. Cirrhotic ascites - Continue to hold home bumex and aldactone given renal insufficiency on admission. 7. LALITHA on Chronic kidney disease III - improving -slowly improving. Baseline appears to be around 1.3. 8. Elevated lactic acid, resolved. - continued rehydration until lactate <2. Code: Full, unable to discuss but previously discussed during his last admission. Dispo: ADmitted to ICU, PT/OT after extubation. DVT: SCDs given possible UGI bleeding and cirrhosis. will continue to monitor at this time. FEN/GI: to start tube feedings today if not extubated, appreciate dietary consultation.
[2020-12-13] MEDS: LACTULOSE 200 GM PR (18:16)
[2020-12-13] MEDS: WATER FOR IRRIGATION STERILE PR (18:16)
[2020-12-14] VITALS (254 sets, daily range): BP systolic 107–136; BP diastolic 55–66; PULSE 63–81; RESP 0–33; TEMP 35.8–37.1; O2SAT 89–100
[2020-12-14] MEDS: propofoL 1,000 MG/100 ML VIAL 13.56 MG IV (03:51)
[2020-12-14 05:23] LABS: Add Manual Diff / Slide Review NO; Basophils Absolute Auto 100 /uL (0-100); Basophils Percent Auto 1.4 % (0-2); Eosinophils Absolute Auto 200 /uL (0-450); Eosinophils Percent Auto 2.8 % (2-4); Hematocrit 30.4 % (41-53); Hemoglobin 10.3 g/dL (13.5-17.5); Lymphocytes Absolute Auto 300 /uL (1100-4500); Lymphocytes Percent Auto 3.4 % (25-40); Mean Corpuscular Hemoglobin 33.5 PG (26-34); Mean Corpuscular Volume 98.5 fL (80-100); Monocytes Absolute Auto 1300 /uL (0-900); Monocytes Percent Auto 16.4 % (3-14); Neutrophils Absolute Auto 5900 /uL (1500-7000); Platelet Count 69 X10^3/uL (150-400); Red Blood Cell Count 3.09 X10^6/uL (4.5-5.9); Red Cell Distribution Width 16.4 % (11.6-14.8); White Blood Cell Count 7.8 X10^3/uL (4.5-11.0)
[2020-12-14 05:26] LABS: Ammonia (NH3) 17 umol/L (9-30)
[2020-12-14 05:27] LABS: Magnesium 2.4 mg/dL (1.6-2.3)
[2020-12-14 05:28] LABS: Alanine Aminotransferase 32 IU/L (<50); Albumin 2.3 g/dL (3.5-5.0); Albumin Globulin Ratio 0.6 (1.0-2.8); Alkaline Phosphatase 144 U/L (38-126); Aspartate Aminotransferase 59 IU/L (17-59); BUN Creatinine Ratio 32.6 (6-22); Bilirubin Total 3.6 mg/dL (0.2-1.3); Blood Urea Nitrogen 45 mg/dL (9-20); Calcium 8.2 mg/dL (8.4-10.2); Carbon Dioxide 22 mmol/L (22-32); Chloride 107 mmol/L (98-107); Glucose 138 mg/dL (80-110); HEMOLYSIS < 15 (0-50); Potassium 4.1 mmol/L (3.4-5.1); Sodium 132 mmol/L (137-145); Total Protein 6.3 g/dL (6.3-8.2)
[2020-12-14 05:29] LABS: Lactate (Lactic Acid) 1.2 mmol/L (0.7-2.1)
--- NOTE | 2020-12-14 08:02 | RT ---
Addendum entered by Wero Winkler, RT 12/14/20 13:17: CPAP turned off at 1130. Various CPAP trials performed, pt does not wake up nor breath...Placed back to prev settins of RR of 15BPM, PRVC TV 500. Hope is for sedation to clear eventually where patient stays awake and can breath on his own on CPAP mode. Requested to nursing to not turn on any sedation at all. Informed Dr Camejo. Addendum entered by Wero Winkler, RT 12/14/20 11:37: Placed pt to CPAP 5/12 at 1115. Pt breaths 10-12 BPM, then goes apnic (vent alarms and ventilates pt in apnea mode). Pt seems to wake up on command, follows commands like lifting head and wiggles toes. Plan: place to rate of 12, 2nd CPAP trial to resume in 2 hours Addendum entered by Wero Winkler, RT 12/14/20 10:04: At 0730, I asked Dr Camejo do consider ordering a CXR Addendum entered by Wero Winkler, RT 12/14/20 09:57: Pt remains unresponsive, but does open eyes barely with loud verbal stimuli. All sedation remains off. RR decreaed to 14 BPM. Pt is not breathing any above set rate at this time. Pt very jaundiced, and continues to have anasarca, with 1-2+ pitting edema to lower extremities. Original Note: At 0745, sedation turned off for Sedation Jody. Pt responds slightly to verrbal stimuli.
[2020-12-14] MEDS: LACTULOSE 20 GM/30 ML SOLUTION 40 GM PO ×2 (09:19→21:04)
[2020-12-14] MEDS: PANTOPRAZOLE 40 MG VIAL IV (09:19)
--- NOTE | 2020-12-14 12:19 | DI.RAD.S_ITS ---
PROCEDURE: XR CHEST 1V INDICATIONS: RESPIRATORY FAILURE ON MECHANICAL VENTILATION TECHNIQUE: One view of the chest was acquired. COMPARISON: [facility], CR, XR CHEST 1V, 12/10/2020, 14:33. FINDINGS: Surgical changes and devices: ET tube and NG tube in satisfactory position. Lungs and pleura: Improved pulmonary edema. Bibasilar atelectasis and small bilateral pleural effusions. Mediastinum: Mediastinal contours appear normal. Heart size is normal. Bones and chest wall: No suspicious bony lesions. Overlying soft tissues appear unremarkable. IMPRESSION: 1. Lines and tubes in satisfactory position. 2. Interval improvement in pulmonary status. Bibasilar atelectasis and small pleural effusions. Dictated by: Earnest Mccabe M.D. on 12/14/2020 at 12:10 Approved by: Earnest Mccabe M.D. on 12/14/2020 at 12:11
--- NOTE | 2020-12-14 13:40 | CM.DPC ---
Addendum entered by Angelika Whitt LPN 12/14/20 14:29: Received call back just now from Tayler. She reports pt has had [facility] since October and up to this admission they were coming out about 3x week. She notes I am sure he will need much more than HH when he discharges this time. Discussed Advanced directives. Tayler says that he has never given anyone POA, we all never got around to it but very much wish we had. She and pt have been together for 30 years and I love him dearly. His closest living relatives are his 2 sisters, both of whom live on the same property as pt and Tayler. Tayler says they have discussed what might happen in the future with pt saying when it comes time just put me on a boat, set it on fire and push it out to sea. She is aware that pt may well be at a point when he will want more of a symptom management pathway under Hospice care and says she is very much hoping that he will be able to be alert enough to discuss this with her. She said when she visited last night he was somewhat responsive to her presence and she is hopeful he will be clear enough soon for more discussion. She says she will start talking with his sisters re options that may be needed. Assured here that the d/c planning team would be following closely. Original Note: DCP: continued: case received yesterday, EMR reviewed. Discussed yesterday and today in Team Rounds. Pt remains on ventilator support and weaning trials have been in process. Tube feeding is in place and Vani/Dip Dyer is following. Dr. Camejo today says he expects pt will likely need hospital care for several more day. Have left a vm now with pt's partner/SO Tayler Grady: [phone] and left message re d/c planning role and offer of assist with d/c issues and options. Pt left on Nov 08 with orders for [facility]. He readmitted again Nov 23 and with no mention of HH resumption at that time. Asked Tayler if this service was still in place. Pt with Medicare and Medicaid so is well poised for various d/c options. DCP team will be following.
--- NOTE | 2020-12-14 14:38 | PC.NURSE ---
Patient intubated and sedated on propofol and fentanyl on AM assessment, RASS -2. Ventilator settings FiO2 .30, PEEP 5, RR 16, and TV 500. SR. Soft restraints in place bilaterally and checked Q2 hours. Lopez catheter in place and draining aleah urine. NG to low intermittent suction at the start of the shift. Sedation was turned off for sedation vacation at 0745, patient was trialed on CPAP setting twice by RT but patient was having apneic episodes so he was placed back on previous settings. Patient does not appear uncomfortable, he is able to follow some commands such as wiggling his toes or squeezing this RNs hand, patient shook head no when asked if he was having any pain, patient still very drowsy and not able to maintain eye contact or stay awake for extended periods of time. Sedation kept off for the remaining of shift to see if patient is able to clear medication and become more alert. Tube feeding restarted at 1315.
--- NOTE | 2020-12-14 17:05 | PC.NURSE ---
Addendum entered by Nazia Wiggins R.N. 12/14/20 19:50: Pt remains on Tube Feeds, rate is 20 ml/hr with 350 ml free water boluses. Pt with residual 200 ml of undigested TFs after 6 hrs. Because pt is actively working towards extubation in the am and has had a history of high residuals on this hospitalization, this RN opted to keep rate at 20 ml/hr rather than increase Tube Feeding rate. Original Note: Evening Shift Note: Pt remains intubated. Sedation has been off since 0700. Pt with RASS -2. Pt opens eyes to voice, but does not maintain wakefulness. Pt follows some basic commands, does not squeeze hands to voice. PERRLA. Will plan to restart sedation at lowest possible rate overnight. Will use fentanyl iv prn bolus for pain management to maintain light sedation if possible. Pt vented. PRVC, TV 500, FiO2 25%, PEEP 5, RR15. SPO2 98%. Pt breathing with the ventilator at 15. Pt became spontaneously wakeful and another CPAP trial attempted with pt becoming apneic after ~1 minute, RT at bedside attempting vent changes to accomodate, but pt is intermittently restless but not able to maintain RR. Pt remains off sedation since 0700. Will continue to attempt vent weaning as pt becomes more wakeful. Will keep sedation to a minimum to facilitate ventilator weaning. Pt has been in NSR. With restlessness pt has had intermittent self-limiting runs of narrow complex tachycardia, up to 150, but not qualifying as SVT. BP WNL. Strong pulses. Pt with generalized edema, more pronounced in BLE, 2 +. Pt with TFs started at 20 ml/hr on . Pt tolerating. Will check residuals and advance this shift per MD order if pt tolerating. No BM yet this shift. BG WNL. Lopez in place draining clear, dark yellow urine, adequate volume. Bed alarm on, pt in room within view of nursing station. Call light in reach. Pt with restraints in place, checked frequently for safety. Will continue to monitor, notify MD with changes.
--- NOTE | 2020-12-14 17:42 | P.PN_ITS ---
Subjective Subjective Date Patient Seen: 12/14/20 Interval history: Juan Carlos Guzmán is a 65-year-old gentleman with a history of hep C cirrhosis and prior episodes of hepatic encephalopathy who was combative in the emergency room, and ultimately intubated for further evaluation with imaging. He is admitted with likely hepatic encephalopathy. On his sedation holidays weaning trials, he is poorly tolerated and becomes increasingly anxious, tachypneic, and needs to be returned to sedation. Yesterday a KUB was done and he was found to be full of stool. With a lactulose enema and increasing his lactulose he has had a bowel movement. His tube feeds have been resumed at 20 cc per hour and he is tolerating so far. He is off propofol and fentanyl and is more alert. Been placed on weaning trial with CPAP via the ventilator and he does not breathe above the vent settings. He does not exhibit any increased anxiety or agitation with the sedation off Exam Vital Signs (past 8 hours): - 12/14/20 09:45 12/14/20 09:50 12/14/20 09:55 Temperature Pulse Rate 73 74 75 Respiratory Rate 15 15 14 Blood Pressure Pulse Oximetry 98 98 97 12/14/20 10:00 12/14/20 10:05 12/14/20 10:10 Temperature 98.0 F Pulse Rate 74 75 74 Respiratory Rate 14 14 14 Blood Pressure 121/60 Pulse Oximetry 99 98 99 12/14/20 10:15 12/14/20 10:20 12/14/20 10:25 Temperature Pulse Rate 76 75 75 Respiratory Rate 14 15 14 Blood Pressure Pulse Oximetry 98 98 98 12/14/20 10:30 12/14/20 10:35 12/14/20 10:40 Temperature Pulse Rate 76 75 76 Respiratory Rate 14 14 14 Blood Pressure Pulse Oximetry 99 99 99 12/14/20 10:45 12/14/20 10:50 12/14/20 10:55 Temperature Pulse Rate 75 74 74 Respiratory Rate 14 14 14 Blood Pressure Pulse Oximetry 99 98 99 12/14/20 11:00 12/14/20 11:05 12/14/20 11:10 Temperature 97.6 F Pulse Rate 73 74 77 Respiratory Rate 14 8 L 12 Blood Pressure 110/60 Pulse Oximetry 99 97 98 12/14/20 11:15 12/14/20 11:20 12/14/20 11:25 Temperature Pulse Rate 78 80 80 Respiratory Rate 12 9 L 8 L Blood Pressure Pulse Oximetry 98 99 98 12/14/20 11:30 12/14/20 11:35 12/14/20 11:40 Temperature Pulse Rate 80 80 81 Respiratory Rate 12 12 12 Blood Pressure Pulse Oximetry 99 98 98 12/14/20 11:45 12/14/20 11:50 12/14/20 11:55 Temperature Pulse Rate 79 80 80 Respiratory Rate 12 12 12 Blood Pressure Pulse Oximetry 98 99 98 12/14/20 12:00 12/14/20 12:05 12/14/20 12:10 Temperature Pulse Rate 80 79 81 Respiratory Rate 12 12 14 Blood Pressure 120/64 Pulse Oximetry 99 98 97 12/14/20 12:15 12/14/20 12:20 12/14/20 12:25 Temperature Pulse Rate 78 78 80 Respiratory Rate 12 12 14 Blood Pressure Pulse Oximetry 98 98 99 12/14/20 12:30 12/14/20 12:35 12/14/20 12:40 Temperature Pulse Rate 77 75 75 Respiratory Rate 12 12 12 Blood Pressure Pulse Oximetry 98 99 99 12/14/20 12:45 12/14/20 12:50 12/14/20 12:55 Temperature Pulse Rate 74 71 71 Respiratory Rate 12 12 12 Blood Pressure Pulse Oximetry 98 99 99 12/14/20 13:00 12/14/20 13:05 12/14/20 13:10 Temperature Pulse Rate 76 74 73 Respiratory Rate 15 Blood Pressure 131/62 Pulse Oximetry 98 99 99 12/14/20 13:15 12/14/20 13:20 12/14/20 13:25 Temperature Pulse Rate 74 70 69 Respiratory Rate 16 15 15 Blood Pressure Pulse Oximetry 100 100 100 12/14/20 13:30 12/14/20 13:35 12/14/20 13:40 Temperature Pulse Rate 68 67 67 Respiratory Rate 15 15 16 Blood Pressure Pulse Oximetry 100 100 100 12/14/20 13:45 12/14/20 13:50 12/14/20 13:55 Temperature Pulse Rate 68 66 68 Respiratory Rate 15 15 15 Blood Pressure Pulse Oximetry 100 100 99 12/14/20 14:00 12/14/20 14:05 12/14/20 14:10 Temperature 98.4 F Pulse Rate 67 66 67 Respiratory Rate 15 15 15 Blood Pressure 107/57 L Pulse Oximetry 100 99 100 12/14/20 14:15 12/14/20 14:20 12/14/20 14:25 Temperature Pulse Rate 67 66 66 Respiratory Rate 15 15 15 Blood Pressure Pulse Oximetry 100 100 99 12/14/20 14:30 12/14/20 14:35 12/14/20 14:40 Temperature Pulse Rate 66 66 66 Respiratory Rate 15 15 16 Blood Pressure Pulse Oximetry 100 100 99 12/14/20 14:45 12/14/20 14:50 12/14/20 14:55 Temperature Pulse Rate 66 67 66 Respiratory Rate 16 15 16 Blood Pressure Pulse Oximetry 100 99 100 12/14/20 15:00 12/14/20 15:05 12/14/20 15:10 Temperature Pulse Rate 66 68 69 Respiratory Rate 16 15 15 Blood Pressure 117/59 L Pulse Oximetry 100 100 100 12/14/20 15:15 12/14/20 15:20 12/14/20 15:25 Temperature Pulse Rate 68 67 66 Respiratory Rate 15 15 16 Blood Pressure Pulse Oximetry 99 99 98 12/14/20 15:30 12/14/20 15:35 12/14/20 15:40 Temperature Pulse Rate 69 69 69 Respiratory Rate 15 15 15 Blood Pressure Pulse Oximetry 98 97 97 12/14/20 15:45 12/14/20 15:50 12/14/20 15:55 Temperature Pulse Rate 68 68 67 Respiratory Rate 15 15 15 Blood Pressure Pulse Oximetry 98 98 98 12/14/20 16:00 12/14/20 16:05 12/14/20 16:10 Temperature Pulse Rate 67 66 66 Respiratory Rate 15 15 15 Blood Pressure 118/61 Pulse Oximetry 98 98 98 12/14/20 16:15 12/14/20 16:20 12/14/20 16:25 Temperature Pulse Rate 68 67 69 Respiratory Rate 15 15 15 Blood Pressure Pulse Oximetry 98 98 99 12/14/20 16:30 12/14/20 16:35 12/14/20 16:40 Temperature Pulse Rate 70 68 68 Respiratory Rate 15 15 15 Blood Pressure Pulse Oximetry 99 99 99 12/14/20 16:45 12/14/20 16:50 12/14/20 16:55 Temperature Pulse Rate 67 67 67 Respiratory Rate 15 15 15 Blood Pressure Pulse Oximetry 98 98 98 12/14/20 17:00 12/14/20 17:05 12/14/20 17:10 Temperature Pulse Rate 67 67 71 Respiratory Rate 15 15 17 Blood Pressure 124/60 Pulse Oximetry 98 98 98 Fraction of Inspired Oxygen 0.30 Oxygen Delivery Method Mechanical Ventilation Oxygen Flow Rate 30 Narrative Exam Narrative: GENERAL APPEARANCE: Chronically ill-appearing, obese male, intubated and off sedation within NG tube and ET tube in place. SKIN: Inspection of the skin reveals no rashes, ulcerations or petechiae. HEENT: Normocephalic atraumatic, extraocular muscles are intact, oropharynx is clear and mucous membranes are dry. There is a small amount of dried blood around the ET tube. NECK: Supple and symmetric. There was no thyroid enlargement, and no tenderness, or masses were felt. CHEST: Normal AP diameter and normal contour without any kyphoscoliosis. LUNGS: Auscultation of the lungs revealed diminished breath sounds bilaterally due to shallow respirations but no wheezing, rhonchi, or rales. CARDIOVASCULAR: There was a regular rate and regular rhythm without any murmurs, gallops, rubs. Peripheral pulses were 2+ and symmetric. ABDOMEN: Soft, nondistended with hypoactive bowel sounds. MUSCULOSKELETAL: No obvious joint effusions or deformities. EXTREMITIES: No cyanosis, clubbing. 1+ peripheral pitting edema bilaterally. NEUROLOGIC: Intubated off sedation; somnolent arousable easily to voice. Looks at examiner and tracks. When asked to squeeze examiner's hand he does not do so Objective Labs Result Diagrams: 12/14/20 04:58 12/14/20 04:58 Labs: Laboratory Results - last 24 hr 12/14/20 12/14/20 12/14/20 04:58 04:58 04:58 WBC RBC Hgb Hct MCV MCH MCHC RDW Plt Count Neut % (Auto) Lymph % (Auto) [place] % (Auto) Eos % (Auto) Baso % (Auto) Neut # (Auto) Lymph # (Auto) [place] # (Auto) Eos # (Auto) Baso # (Auto) Sodium Potassium Chloride Carbon Dioxide BUN Creatinine Estimated GFR BUN/Creatinine Ratio Glucose Lactate 1.2 Calcium Magnesium 2.4 H Total Bilirubin AST ALT Alkaline Phosphatase Ammonia 17 Total Protein Albumin Globulin Albumin/Globulin Ratio 12/14/20 12/14/20 04:58 04:58 WBC 7.8 RBC 3.09 L Hgb 10.3 L Hct 30.4 L MCV 98.5 MCH 33.5 MCHC 34.0 RDW 16.4 H Plt Count 69 L Neut % (Auto) 76.0 H Lymph % (Auto) 3.4 L [place] % (Auto) 16.4 H Eos % (Auto) 2.8 Baso % (Auto) 1.4 Neut # (Auto) 5900 Lymph # (Auto) 300 L [place] # (Auto) 1300 H Eos # (Auto) 200 Baso # (Auto) 100 Sodium 132 L Potassium 4.1 Chloride 107 Carbon Dioxide 22 BUN 45 H Creatinine 1.38 H Estimated GFR 52.0 L BUN/Creatinine Ratio 32.6 H Glucose 138 H Lactate Calcium 8.2 L Magnesium Total Bilirubin 3.6 H AST 59 ALT 32 Alkaline Phosphatase 144 H Ammonia Total Protein 6.3 Albumin 2.3 L Globulin 4.0 Albumin/Globulin Ratio 0.6 L [facility] Medical History (Updated 12/14/20 @ 00:39 by Jeannie Yu [facility]) Anasarca Ascites Asthma Elevated brain natriuretic peptide (BNP) level Hepatitis C Hypertension Liver cancer Liver cirrhosis Surgical History History of surgery of liver Family History Father Trauma Mother Sjogrens syndrome Sister No significant medical problems Social History household members: spouse Smoking Status: Former smoker alcohol intake: former Assessment & Plan Assessment & Plan narrative: Patient is a 65-year-old male with chronic hep C cirrhosis, ascites, history of resection of hepatocellular carcinoma, chronic kidney disease, asthma sent to emergency department for acute confusion. Admitted for hepatic encephalopathy. 1. Vent dependent respiratory failure -hold sedation -continue to attempt weaning trial -DC fentanyl -hold propofol resume for agitation 2. Acute hepatic encephalopathy - CT head unremarkable. -ammonia level has normalized. His encephalopathy is slowly improving with correction of his ammonia level and holding sedation -continue lactulose -serial ammonia level 3. Tube feed residuals -continue tube feeds and increase as possible 4. hepatitis-C cirrhosis CT chest/abdomen pelvis; revealed interstitial and ground-glass infiltrates bilaterally, cirrhotic liver, small amount of ascites, diverticulosis without diverticulitis, moderate to severe coronary artery disease, 2.2 cm left adrenal nodule demonstrating CT density higher than benign adrenal adenoma and has enlarged since 03/14/2020. Further evaluation with adrenal protocol CT or MRI is suggested Hyperbilirubinemia has improved and the transaminitis has resolved 5. adrenal adenoma For CT abdomen it has enlarged since 03/14/2020. Further evaluation with adrenal protocol CT or MRI is suggested 6. Cirrhotic ascites - Continue to hold home bumex and aldactone given renal insufficiency on admission. 7. LALITHA on Chronic kidney disease III - improving -continues to improve. Creatinine is now 1.38. His baseline appears to be 1.30-1.37 8. Elevated lactic acid, resolved. - continued rehydration until lactate <2. Code: Full, unable to discuss but previously discussed during his last admissio n. Dispo: ADmitted to ICU, PT/OT after extubation. DVT: SCDs given possible UGI bleeding and cirrhosis. will continue to monitor at this time. FEN/GI: to start tube feedings today if not extubated, appreciate dietary consultation.
[2020-12-14] MEDS: propofoL 1,000 MG/100 ML VIAL 6.78 MG IV (23:15)
[2020-12-15] VITALS (216 sets, daily range): BP systolic 109–140; BP diastolic 55–64; PULSE 66–91; RESP 10–26; TEMP 36.5–37.4; O2SAT 93–99
[2020-12-15] MEDS: LACTATED RINGERS 500 ML 21 ML IV (00:20)
[2020-12-15 05:22] LABS: Add Manual Diff / Slide Review NO; Basophils Absolute Auto 0 /uL (0-100); Basophils Percent Auto 0.5 % (0-2); Eosinophils Absolute Auto 200 /uL (0-450); Eosinophils Percent Auto 2.2 % (2-4); Hematocrit 28.3 % (41-53); Hemoglobin 9.8 g/dL (13.5-17.5); Lymphocytes Absolute Auto 400 /uL (1100-4500); Lymphocytes Percent Auto 4.8 % (25-40); Mean Corpuscular HGB Conc 34.6 % (30-36); Mean Corpuscular Hemoglobin 33.8 PG (26-34); Mean Corpuscular Volume 97.5 fL (80-100); Monocytes Absolute Auto 1300 /uL (0-900); Monocytes Percent Auto 15.5 % (3-14); Neutrophils Absolute Auto 6500 /uL (1500-7000); Platelet Count 64 X10^3/uL (150-400); Red Cell Distribution Width 16.2 % (11.6-14.8); White Blood Cell Count 8.4 X10^3/uL (4.5-11.0)
[2020-12-15 05:25] LABS: Ammonia (NH3) 26 umol/L (9-30)
[2020-12-15 05:29] LABS: Magnesium 2.4 mg/dL (1.6-2.3)
--- NOTE | 2020-12-15 05:29 | PC.NURSE ---
Pt responds to verbal and touch stimuli throughout the night. Pt follows some directions. Propofol gtt running at 5mcg/kg/hr. Pt showing no signs of pain. Trialed pt off propofol gtt this am, pt became restless and repeatedly trying to pull at lines. Restarted propofol at 5mcg/kg/hr. Pt now resting in bed, opens eyes to verbal or touch stimuli. OG tube feeding running at 20ml/hr. Per Gigi GOLD BLOWER continue at 20ml/hr overnight. Gastric residual at 80mls. Pt tolerating restraints. CMS intact. Lopez intact, draining dark yellow urine. Pt resting now, no signs of pain. WCTM
[2020-12-15 05:30] LABS: Alanine Aminotransferase 29 IU/L (<50); Albumin 2.2 g/dL (3.5-5.0); Albumin Globulin Ratio 0.6 (1.0-2.8); Alkaline Phosphatase 143 U/L (38-126); Aspartate Aminotransferase 51 IU/L (17-59); BUN Creatinine Ratio 33.9 (6-22); Bilirubin Total 3.8 mg/dL (0.2-1.3); Blood Urea Nitrogen 43 mg/dL (9-20); Carbon Dioxide 24 mmol/L (22-32); Chloride 106 mmol/L (98-107); Estimated Glomerular Filt Rate 57.3 mL/min (>60); Globulin 3.7 g/dL (1.7-4.1); Glucose 149 mg/dL (80-110); HEMOLYSIS < 15 (0-50); Potassium 4.3 mmol/L (3.4-5.1); Sodium 132 mmol/L (137-145); Total Protein 5.9 g/dL (6.3-8.2)
[2020-12-15 05:32] LABS: Lactate (Lactic Acid) 1.2 mmol/L (0.7-2.1)
[2020-12-15] MEDS: LACTULOSE 20 GM/30 ML SOLUTION 40 GM PO ×2 (08:50→21:19)
[2020-12-15] MEDS: PANTOPRAZOLE 40 MG VIAL IV (08:50)
--- NOTE | 2020-12-15 12:52 | CM.DPC ---
DCP: continued. Case discussed in Team Rounds and including the discussion this d/c senior buyer planner had with pt's life partner Tayler. Dr. Camejo planned to place a palliative consult order (not in place at this time) although he will not be on as hospitalist after today. Dr. Bolaños is scheduled to be here. As per Team recommendation Palliative Nurse Practitioner Blanche Morris is notified of pending referral via inter hospital email. DCplan team will continue to follow closely as POC unfolds to assist with d/c issues and options. (see DCP note of yesterday for more specifics.
[2020-12-15] MEDS: propofoL 1,000 MG/100 ML VIAL 3.39 MG IV (14:37)
--- NOTE | 2020-12-15 14:47 | PC.NURSE ---
Pt intubated and sedated on propofol at start of shift, RASS -2. Ventilator setting FiO2 .25, PEEP 5, RR 15, and TV 500. SR. Soft restraints in place bilaterally and checked Q2 hours. Lopez catheter in place and draining dark urine. NG has tube feeds running at 20 ml/hr, were placed on hold for weaning trial. Sedation was turned off at 0745 for sedation vacation, patient was trialed on CPAP setting at 0830 for about 3 hours until 11:15, patient able to follow some commands but still very drowsy, he began getting tired and was placed back on previous setting. Sedation remained off until 1400, patient appeared comfortable in bed and was synchronous with vent. At about 1415 patient became more alert, attempted to see if RT could try placing patient on CPAP setting again because patient was more alert than in the morning. Hospitalist and RT agreed that we should wait until tomorrow to try weaning patient so patient was placed back on sedation due to appearing uncomfortable and trying to pull at his lines. Expressed concerns to hospitalist about patients clearance of medication, no new orders at this time. Plan is to stop medication earlier tomorrow morning if possible to try and give patient a longer amount of time to clear medication before trialing him.
--- NOTE | 2020-12-15 15:35 | PC.NURSE ---
Addendum entered by Ruth Smart R.N. 12/15/20 19:05: 1800: Patient RASS -1, no longer seems agitated but will open eyes on command and nod/shake head in response to questions. Residual checked less than 50ml. Feeding increased to 30ml/hr as per order. Oral care done. Addendum entered by Ruth Smart R.N. 12/15/20 17:03: 1700: Patient RASS still at +2, patient appears restless and agitated. Frequent attempts to pull at tubing and to sit up. Unable to settle patient with reassurance or touch. Tilted bed in order to reposition, checked srivastava for kinks or pulling, assessed for any other possible irritants. Vitals all WNL. Increased propofol to 10 mcg/kg/hr. Original Note: Start of shift: Patient intubated, vent day 5. TV 500, RR 15, FiO2 25%, Peep 5, ET 24 at lip. Propofol at 5mcg/kg/hr, LR at 21ml/hr. Patient has NG with tube feedings, 20ml/hr, 350 flush Q4H, goal of 40, to be increased 10ml/hr Q shift. HOB at 30 degrees. RASS score of +2. Patient is attempting to sit up and was able to move enough to dislodge vent tubing momentarily, and is reaching for tube despite soft wrist restraints in place. This nurse increased propofol to 7mcg/kg/hr. Lung sounds clear. Positive bowel tones. Good peripheral pulses, hands and feet are warm to touch.
--- NOTE | 2020-12-15 17:15 | P.PN_ITS ---
Subjective Subjective Date Patient Seen: 12/15/20 Interval history: Juan Carlos Guzmán is a 65-year-old gentleman with a history of hep C cirrhosis and prior episodes of hepatic encephalopathy who was combative in the emergency room, and ultimately intubated for further evaluation with imaging. He is admitted with likely hepatic encephalopathy. His fentanyl infusion was discontinued yesterday. He has propofol when sedation is needed. He required profile fall last night. It has been discontinued this morning at 7:30 a.m. he is more awake and alert and he is being placed on weaning trial with CPAP via the ventilator. His level of alertness has improved off sedation Exam Vital Signs (past 8 hours): - 12/15/20 10:01 12/15/20 10:41 12/15/20 10:55 Temperature Pulse Rate 77 72 Respiratory Rate 13 15 Blood Pressure 140/63 Pulse Oximetry 97 96 97 12/15/20 11:00 12/15/20 11:05 12/15/20 11:24 Temperature Pulse Rate 72 72 Respiratory Rate 15 15 Blood Pressure 123/60 Pulse Oximetry 97 96 96 12/15/20 11:55 12/15/20 12:00 12/15/20 12:05 Temperature Pulse Rate 69 69 69 Respiratory Rate 15 15 15 Blood Pressure 109/56 L Pulse Oximetry 96 96 96 12/15/20 12:55 12/15/20 13:00 12/15/20 13:05 Temperature 99.4 F Pulse Rate 71 71 69 Respiratory Rate 15 15 15 Blood Pressure 134/61 Pulse Oximetry 96 96 96 12/15/20 13:55 12/15/20 14:00 12/15/20 14:05 Temperature Pulse Rate 68 69 71 Respiratory Rate 15 15 15 Blood Pressure 119/57 L Pulse Oximetry 97 98 97 12/15/20 14:10 12/15/20 14:15 12/15/20 14:20 Temperature Pulse Rate 72 76 75 Respiratory Rate 20 19 17 Blood Pressure Pulse Oximetry 98 98 97 12/15/20 14:25 12/15/20 14:30 12/15/20 14:35 Temperature Pulse Rate 72 78 75 Respiratory Rate 17 23 20 Blood Pressure Pulse Oximetry 97 98 98 12/15/20 14:40 12/15/20 14:45 12/15/20 14:50 Temperature Pulse Rate 74 81 72 Respiratory Rate 20 20 15 Blood Pressure Pulse Oximetry 97 98 97 12/15/20 14:55 12/15/20 15:00 12/15/20 15:05 Temperature Pulse Rate 73 74 74 Respiratory Rate 15 16 16 Blood Pressure 122/63 Pulse Oximetry 96 97 96 12/15/20 15:10 12/15/20 15:15 12/15/20 15:20 Temperature Pulse Rate 76 75 73 Respiratory Rate 17 18 16 Blood Pressure Pulse Oximetry 96 97 97 12/15/20 15:25 12/15/20 15:30 12/15/20 15:35 Temperature Pulse Rate 75 74 73 Respiratory Rate 15 17 19 Blood Pressure Pulse Oximetry 96 96 97 12/15/20 15:40 12/15/20 15:45 12/15/20 15:50 Temperature Pulse Rate 91 H 75 76 Respiratory Rate 19 17 19 Blood Pressure Pulse Oximetry 98 97 97 12/15/20 15:55 12/15/20 16:00 12/15/20 16:05 Temperature Pulse Rate 71 69 68 Respiratory Rate 15 15 15 Blood Pressure 120/63 Pulse Oximetry 97 98 98 12/15/20 16:10 Temperature Pulse Rate 68 Respiratory Rate 15 Blood Pressure Pulse Oximetry 98 Fraction of Inspired Oxygen 0.25 Oxygen Delivery Method Mechanical Ventilation Oxygen Flow Rate 30 Narrative Exam Narrative: Chronically ill-appearing, obese male, intubated and off se dation within NG tube and ET tube in place. SKIN: Inspection of the skin reveals no rashes, ulcerations or petechiae. HEENT: Normocephalic atraumatic, extraocular muscles are intact, oropharynx is clear and mucous membranes are dry. There is a small amount of dried blood around the ET tube. NECK: Supple and symmetric. There was no thyroid enlargement, and no tenderness, or masses were felt. CHEST: Normal AP diameter and normal contour without any kyphoscoliosis. LUNGS: Auscultation of the lungs revealed diminished breath sounds bilaterally due to shallow respirations but no wheezing, rhonchi, or rales. CARDIOVASCULAR: There was a regular rate and regular rhythm without any murmurs, gallops, rubs. Peripheral pulses were 2+ and symmetric. ABDOMEN: Soft, nondistended with hypoactive bowel sounds. MUSCULOSKELETAL: No obvious joint effusions or deformities. EXTREMITIES: No cyanosis, clubbing. 1+ peripheral pitting edema bilaterally. NEUROLOGIC: Intubated off sedation; he is awake. He tracks with his eyes in turn his head to the examiner. He moves his legs spontaneously as well as his arms. He will not squeeze examiner's hand on command normally would goal is total is on command. As mentioned he moves all extremities Objective Labs Result Diagrams: 12/15/20 05:05 12/15/20 05:05 Labs: Laboratory Results - last 24 hr 12/15/20 12/15/20 12/15/20 05:05 05:05 05:05 WBC RBC Hgb Hct MCV MCH MCHC RDW Plt Count Neut % (Auto) Lymph % (Auto) [place] % (Auto) Eos % (Auto) Baso % (Auto) Neut # (Auto) Lymph # (Auto) [place] # (Auto) Eos # (Auto) Baso # (Auto) Sodium Potassium Chloride Carbon Dioxide BUN Creatinine Estimated GFR BUN/Creatinine Ratio Glucose Lactate 1.2 Calcium Magnesium Cancelled Total Bilirubin AST ALT Alkaline Phosphatase Ammonia 26 Total Protein Albumin Globulin Albumin/Globulin Ratio 12/15/20 12/15/20 12/15/20 05:05 05:05 05:05 WBC 8.4 RBC 2.90 L Hgb 9.8 L Hct 28.3 L MCV 97.5 MCH 33.8 MCHC 34.6 RDW 16.2 H Plt Count 64 L Neut % (Auto) 77.0 H Lymph % (Auto) 4.8 L [place] % (Auto) 15.5 H Eos % (Auto) 2.2 Baso % (Auto) 0.5 Neut # (Auto) 6500 Lymph # (Auto) 400 L [place] # (Auto) 1300 H Eos # (Auto) 200 Baso # (Auto) 0 Sodium 132 L Potassium 4.3 Chloride 106 Carbon Dioxide 24 BUN 43 H Creatinine 1.27 H Estimated GFR 57.3 L BUN/Creatinine Ratio 33.9 H Glucose 149 H Lactate Calcium 8.0 L Magnesium 2.4 H Total Bilirubin 3.8 H AST 51 ALT 29 Alkaline Phosphatase 143 H Ammonia Total Protein 5.9 L Albumin 2.2 L Globulin 3.7 Albumin/Globulin Ratio 0.6 L [facility] Medical History (Updated 12/14/20 @ 00:39 by DANIELLE Chen-JAYDEN) Anasarca Ascites Asthma Elevated brain natriuretic peptide (BNP) level Hepatitis C Hypertension Liver cancer Liver cirrhosis Surgical History History of surgery of liver Family History Father Trauma Mother Sjogrens syndrome Sister No significant medical problems Social History household members: spouse Smoking Status: Former smoker alcohol intake: former Assessment & Plan Assessment & Plan narrative: Patient is a 65-year-old male with chronic hep C cirrhosis, ascites, history of resection of hepatocellular carcinoma, chronic kidney disease, asthma sent to emergency department for acute confusion. Admitted for hepatic encephalopathy. 1. Vent dependent respiratory failure -holding sedation -continue to attempt weaning trial - fentanyl discontinued 12/14/2020 -remains on propofol for agitation -propofol will be held in the morning for weaning trial 2. Acute hepatic encephalopathy - CT head unremarkable. -ammonia level has normalized. His encephalopathy is slowly improving with correction of his ammonia level and holding sedation -continue lactulose -serial ammonia level 3. Tube feed residuals -continue tube feeds and increase as possible 4. hepatitis-C cirrhosis CT chest/abdomen pelvis; revealed interstitial and ground-glass infiltrates bilaterally, cirrhotic liver, small amount of ascites, diverticulosis without diverticulitis, moderate to severe coronary artery disease, 2.2 cm left adrenal nodule demonstrating CT density higher than benign adrenal adenoma and has enlarged since 03/14/2020. Further evaluation with adrenal protocol CT or MRI is suggested Hyperbilirubinemia stable and 3.8 today and the transaminitis has resolved 5. adrenal adenoma For CT abdomen it has enlarged since 03/14/2020. Further evaluation with adrenal protocol CT or MRI is suggested 6. Cirrhotic ascites - Continue to hold home bumex and aldactone given renal insufficiency on admission. 7. LALITHA on Chronic kidney disease III - improving -continues to improve. Creatinine is now 1.27. 8. Elevated lactic acid, resolved. - continued rehydration until lactate <2. Code: Full, unable to discuss but previously discussed during his last admission. Dispo: ADmitted to ICU, PT/OT after extubation. DVT: SCDs given possible UGI bleeding and cirrhosis. will continue to monitor at this time. FEN/GI: to start tube feedings today if not extubated, appreciate dietary consultation.
[2020-12-15] MEDS: fentaNYL 100 MCG/2 ML INJ 25 MCG IV (21:19)
[2020-12-16] VITALS (233 sets, daily range): BP systolic 99–148; BP diastolic 55–74; PULSE 66–91; RESP 9–31; TEMP 35.9–36.7; O2SAT 91–100
[2020-12-16] MEDS: propofoL 1,000 MG/100 ML VIAL 10.17 MG IV (01:11)
[2020-12-16] MEDS: fentaNYL 100 MCG/2 ML INJ 25 MCG IV ×2 (01:21→05:55)
[2020-12-16 04:43] LABS: Add Manual Diff / Slide Review NO; Basophils Absolute Auto 100 /uL (0-100); Basophils Percent Auto 0.7 % (0-2); Eosinophils Absolute Auto 200 /uL (0-450); Eosinophils Percent Auto 2.2 % (2-4); Hematocrit 28.5 % (41-53); Hemoglobin 9.9 g/dL (13.5-17.5); Lymphocytes Absolute Auto 500 /uL (1100-4500); Lymphocytes Percent Auto 5.2 % (25-40); Mean Corpuscular HGB Conc 34.6 % (30-36); Mean Corpuscular Hemoglobin 33.8 PG (26-34); Mean Corpuscular Volume 97.5 fL (80-100); Monocytes Absolute Auto 1800 /uL (0-900); Monocytes Percent Auto 18.4 % (3-14); Neutrophils Absolute Auto 7000 /uL (1500-7000); Neutrophils Percent Auto 73.5 % (50-75); Platelet Count 63 X10^3/uL (150-400); Red Blood Cell Count 2.93 X10^6/uL (4.5-5.9); Red Cell Distribution Width 16.3 % (11.6-14.8); White Blood Cell Count 9.5 X10^3/uL (4.5-11.0)
[2020-12-16 04:45] LABS: Ammonia (NH3) 15 umol/L (9-30); Lactate (Lactic Acid) 1.3 mmol/L (0.7-2.1)
[2020-12-16 04:46] LABS: Magnesium 2.6 mg/dL (1.6-2.3)
[2020-12-16 04:47] LABS: Alanine Aminotransferase 27 IU/L (<50); Albumin 2.3 g/dL (3.5-5.0); Albumin Globulin Ratio 0.6 (1.0-2.8); Alkaline Phosphatase 146 U/L (38-126); Aspartate Aminotransferase 48 IU/L (17-59); Bilirubin Total 3.6 mg/dL (0.2-1.3); Blood Urea Nitrogen 41 mg/dL (9-20); Calcium 8.1 mg/dL (8.4-10.2); Carbon Dioxide 24 mmol/L (22-32); Chloride 105 mmol/L (98-107); Estimated Glomerular Filt Rate > 60.0 mL/min (>60); Globulin 3.8 g/dL (1.7-4.1); Glucose 149 mg/dL (80-110); HEMOLYSIS < 15 (0-50); Potassium 4.2 mmol/L (3.4-5.1); Sodium 131 mmol/L (137-145); Total Protein 6.1 g/dL (6.3-8.2)
--- NOTE | 2020-12-16 06:03 | PC.NURSE ---
Addendum entered by Yuli Stoddard R.N. 12/16/20 06:45: Soft restraints intact bilaterally and CMS intact. Checked q2 hours. Addendum entered by Yuli Stoddard R.N. 12/16/20 06:42: After giving fentanyl this AM pt now calm but arousable with a RASS of -2. Able to titrate propofol down to 5mcg/kr/hr. [facility] Original Note: Pt responds to verbal stimuli. Obeys commands. Vent ET tube at 24. Settings at Fi02 25%, TV 500, Peep 5, Rate 15. Started shift with propofol at 10mcg/kg/hr. Pt became more restless throughout the night. Trying to pull at lines and moving head from side to side. Fentanyl given and propofol increased. Pt resting comfortably but still easily arousable with propofol at 25mcg/kr/hr. Per Matteo RIPSAW GRADER wean patient propofol at 0500 and given fentanyl for patient discomfort. Lopez catheter intact draining dark yellow urine. OG tube intact. Residual of 50. Increased tube feedings to 40ml/hr at 0600 per protocol.
[2020-12-16] MEDS: PANTOPRAZOLE 40 MG VIAL IV (08:56)
[2020-12-16] MEDS: LACTULOSE 20 GM/30 ML SOLUTION 40 GM PO (08:56)
--- NOTE | 2020-12-16 11:03 | DIET.PN ---
Dietary Progress Note Assessment: Pt tolerating EN Glucerna 1.5 at goal of 40mL/h c 350mL free water flushes q4h. Residual 50. Goal formula rate and flushes provide 1440 kcal (20kcal/kg), 79g PRO (0.9g/kg per renal), and 2829mL free water (33mL/kg). Propofol running at current 25mcg/kg/h.
--- NOTE | 2020-12-16 13:50 | PM.PN.1 ---
Subjective Subjective Date Patient Seen: 12/16/20 Time Patient Seen: 13:50 Interval history: Juan Carlos Guzmán is a 65-year-old gentleman with a history of hep C cirrhosis and prior episodes of hepatic encephalopathy who was combative in the emergency room, and ultimately intubated for further evaluation with imaging. He is admitted with likely hepatic encephalopathy. He was quite sleepy with sedation trail but doing still fairly well and the best he had been in the last few days per staff. Ultimately proceeded with extubation to venturi mask, now off of supplemental oxygen but still quite slow. Sedation is now off. He still has an NG tube in place. Denies pain but he is still quite somnolent. Exam Vital Signs (past 8 hours): - 12/16/20 06:02 12/16/20 06:55 12/16/20 07:00 Temperature 97.6 F Pulse Rate 67 69 68 Respiratory Rate 15 17 15 Blood Pressure 115/56 L 128/62 Pulse Oximetry 97 97 98 12/16/20 07:05 12/16/20 08:00 12/16/20 08:55 Temperature 97.1 F L Pulse Rate 69 73 69 Respiratory Rate 23 19 15 Blood Pressure 135/63 Pulse Oximetry 98 96 96 12/16/20 09:00 12/16/20 09:04 12/16/20 09:05 Temperature 97.5 F L Pulse Rate 67 67 67 Respiratory Rate 15 15 15 Blood Pressure 129/64 129/64 Pulse Oximetry 96 96 96 12/16/20 09:50 12/16/20 09:55 12/16/20 10:00 Temperature 97.3 F L Pulse Rate 66 67 74 Respiratory Rate 15 15 15 Blood Pressure 148/72 H Pulse Oximetry 96 97 98 12/16/20 10:41 12/16/20 10:50 12/16/20 10:55 Temperature Pulse Rate 72 72 Respiratory Rate 16 18 Blood Pressure Pulse Oximetry 97 96 97 12/16/20 11:00 12/16/20 11:03 12/16/20 11:05 Temperature 97.5 F L Pulse Rate 71 85 Respiratory Rate 17 Blood Pressure 130/64 Pulse Oximetry 96 99 12/16/20 11:10 12/16/20 11:15 12/16/20 11:20 Temperature Pulse Rate 74 73 76 Respiratory Rate 21 23 26 H Blood Pressure 130/64 Pulse Oximetry 98 99 96 12/16/20 11:25 12/16/20 11:30 12/16/20 11:55 Temperature Pulse Rate 77 79 83 Respiratory Rate 24 20 17 Blood Pressure Pulse Oximetry 96 98 98 12/16/20 12:00 12/16/20 12:05 12/16/20 12:10 Temperature 97.8 F Pulse Rate 84 85 84 Respiratory Rate 24 21 29 H Blood Pressure 126/60 Pulse Oximetry 98 97 97 12/16/20 12:15 12/16/20 13:00 Temperature 97.1 F L Pulse Rate 85 87 Respiratory Rate 25 H 20 Blood Pressure 99/61 Pulse Oximetry 96 94 Fraction of Inspired Oxygen 30 Oxygen Delivery Method Humidification,Aerosol Mask Oxygen Flow Rate 0 Narrative Exam Narrative: GeN: Chronically ill-appearing, obese male, NG tube in place. Somnolent, arousable but minimal speech and cough. SKIN: Inspection of the skin reveals no rashes, ulcerations or petechiae. HEENT: Normocephalic atraumatic, extraocular muscles are intact, oropharynx is clear and mucous membranes are moist. NECK: Supple and symmetric. There was no thyroid enlargement, and no tenderness, or masses were felt. CHEST: Normal AP diameter and normal contour without any kyphoscoliosis. LUNGS: Auscultation of the lungs revealed diminished breath sounds bilaterally due to shallow respirations but no wheezing, rhonchi, or rales. CARDIOVASCULAR: There was a regular rate and regular rhythm without any murmurs, gallops, rubs. Peripheral pulses were 2+ and symmetric. ABDOMEN: Soft, nondistended with hypoactive bowel sounds. MUSCULOSKELETAL: No obvious joint effusions or deformities. EXTREMITIES: No cyanosis, clubbing. no edema on today's exam. NEUROLOGIC: somnolent, opens eyes to name, follows commands intermittently. Objective Labs Result Diagrams: 12/16/20 04:24 12/16/20 04:24 Labs: Laboratory Results - last 24 hr 12/16/20 12/16/20 12/16/20 04:24 04:24 04:24 WBC RBC Hgb Hct MCV MCH MCHC RDW Plt Count Neut % (Auto) Lymph % (Auto) [place] % (Auto) Eos % (Auto) Baso % (Auto) Neut # (Auto) Lymph # (Auto) [place] # (Auto) Eos # (Auto) Baso # (Auto) Sodium Potassium Chloride Carbon Dioxide BUN Creatinine Estimated GFR BUN/Creatinine Ratio Glucose Lactate 1.3 Calcium Magnesium 2.6 H Total Bilirubin AST ALT Alkaline Phosphatase Ammonia 15 Total Protein Albumin Globulin Albumin/Globulin Ratio 12/16/20 12/16/20 04:24 04:24 WBC 9.5 RBC 2.93 L Hgb 9.9 L Hct 28.5 L MCV 97.5 MCH 33.8 MCHC 34.6 RDW 16.3 H Plt Count 63 L Neut % (Auto) 73.5 Lymph % (Auto) 5.2 L [place] % (Auto) 18.4 H Eos % (Auto) 2.2 Baso % (Auto) 0.7 Neut # (Auto) 7000 Lymph # (Auto) 500 L [place] # (Auto) 1800 H Eos # (Auto) 200 Baso # (Auto) 100 Sodium 131 L Potassium 4.2 Chloride 105 Carbon Dioxide 24 BUN 41 H Creatinine 1.14 Estimated GFR > 60.0 BUN/Creatinine Ratio 36.0 H Glucose 149 H Lactate Calcium 8.1 L Magnesium Total Bilirubin 3.6 H AST 48 ALT 27 Alkaline Phosphatase 146 H Ammonia Total Protein 6.1 L Albumin 2.3 L Globulin 3.8 Albumin/Globulin Ratio 0.6 L PFSH Medical History (Updated 12/14/20 @ 00:39 by DANIELLE Chen-) Anasarca Ascites Asthma Elevated brain natriuretic peptide (BNP) level Hepatitis C Hypertension Liver cancer Liver cirrhosis Surgical History History of surgery of liver Family History Father Trauma Mother Sjogrens syndrome Sister No significant medical problems Social History household members: spouse Smoking Status: Former smoker alcohol intake: former Assessment & Plan Assessment & Plan narrative: Patient is a 65-year-old male with chronic hep C cirrhosis, ascites, history of resection of hepatocellular carcinoma, chronic kidney disease, asthma sent to emergency department for acute confusion. Admitted for hepatic encephalopathy. 1. Acute hepatic encephalopathy - patient intubated in the ER for combativeness. He appeared dehydrated with an elevated hemoglobin and compared to his baseline although he did have some possible coffee-ground appearance to his NG tube output. Started on protonix empirically, but no further evidence of GI bleeding and this was likely due to trauma during intubation. Decreased to 20 mg IV daily. -Patient was difficult to wean from sedation, ultimately extubated today after 6 days but remains quite somnolent likely from prolonged need for sedatives. Will continue to monitor off of propofol, continue lactulose, and if no improvement in a few days consider MRI for further evaluation. -no overt pathology identified on abdominal CT or CXR. Head CT also unremarkable. -no leukocytosis, and CT imaging shows a small amount of ascites. abdominal ultrasound at bedside with no fluid for abdominal paracentesis on admission. -continue lactulose via NG tube until improvement in mental status. -troponin within normal limits. rehydated on admission. -consider rifaximin given likely compliance issues. 2. hepatitis-C cirrhosis - bilirubin has improved since previous admission. Stable since admission here. 3. Cirrhotic ascites - will continue to hold home bumex and aldactone given dehydration on admission. consider resuming home diuretics if improving. 4. LALITHA on Chronic kidney disease III - resolved - suspect secondary to dehydration, Cr 1.67 on admission now improved with holding his home diuretics to 1.14. 5. Elevated lactic acid, resolved. - continued rehydration until lactate <2. Code: Full, unable to discuss but previously discussed during his last admission. Dispo: ADmitted to ICU, PT/OT/speech after extubation. DVT: SCDs given possible UGI bleeding and cirrhosis. will continue to monitor at this time. FEN/GI: resume tube feeds later today if he remains somnolent. I spent 35 minutes providing critical care management this patient. This excludes time spent in performing separately billed procedures.
--- NOTE | 2020-12-16 14:25 | PC.NURSE ---
Patient was placed on sedation vacation at start of shift, patient was trialed on CPAP setting at 10:15, patient tolerated well and decision was made by hospitalist to extubate patient at 11:00, patient extubated with hospitalist, RT, and two RNs at bedside, patient was extubated without any difficulty. Patient was placed on aerosol facemask and tolerated well. Patient more alert at end of shift, able to tell this RN his name, patient satting well on room air. NG tube kept in place, tube feeds held per hospitalist.
--- NOTE | 2020-12-16 15:31 | CM.DPC ---
DCP Cont: Discussed patient during team rounds. Dr. Bolaños stated that he does not think that patient needs palliative consult. Stated, he is familiar with this patient, and he wishes to be a full code, unless something happens that he's in a vegetative state. Blanche Morris had reached out with an email inquiring if patient had any next of kin, regarding palliative consult. Let her know that patient was still intubated, plan to extubate, and at this time, would hold off on palliative care consult. She is now aware of update. P: Patient is to be weaned off of sedation for extubation. Will continue to follow closely for any needs. He currently has NG tube. Addis Roca RN/Director Of Education And Training
--- NOTE | 2020-12-16 21:03 | PC.NURSE ---
Patient removed his own NG tube. Per HEAD SULFIDE OPERATOR Carlos, hold PO meds until patient is alert enough for a bedside swallow test. At this time the patient will open his eyes to voice, will squeeze hands and wiggle toes on command, but does not make meaningful eye contact or track movement.
[2020-12-17] VITALS (84 sets, daily range): BP systolic 102–131; BP diastolic 57–71; PULSE 68–82; RESP 9–74; TEMP 36.1–37.1; O2SAT 97–100
[2020-12-17] MEDS: MORPHINE 2 MG/ML INJ IV ×3 (00:31→22:30)
--- NOTE | 2020-12-17 08:11 | PC.NURSE ---
Addendum entered by Natalie Lopez R.N. 12/17/20 14:22: mechanical lift to chair with little pt cooperation- he has tolerated it fair and continues to be restless but profoundly weak- able to form few more words today as compared to yesterday - remains room air with mid 90 %- frequent oral care given and pt able to take po lactulose via syringe- updated at bedside Original Note: PT CHANGED TO FLOOR CARE STATUS WITHOUT TELE PER DR MAGUIRE- SPOKE OF AIDEE AND HE REQUESTS IT SATY IN UNTIL HIS ORDER TO DC
[2020-12-17] MEDS: LACTULOSE 20 GM/30 ML SOLUTION 40 GM PO ×2 (08:28→23:22)
[2020-12-17] MEDS: PANTOPRAZOLE 40 MG VIAL IV (08:28)
--- NOTE | 2020-12-17 10:02 | P.PN_ITS ---
Subjective Subjective Date Patient Seen: 12/17/20 Time Patient Seen: 10:03 Interval history: Juan Carlos Guzmán is a 65-year-old gentleman with a history of hep C cirrhosis and prior episodes of hepatic encephalopathy who was combative in the emergency room, and ultimately intubated for further evaluation with imaging. He is admitted with likely hepatic encephalopathy. He was extubated yesterday. NG tube was pulled by the patient yesterday afternoon. He is not hypoxic on room air today, mental status is slowly improving today as he does follow commands but he is still quite somnolent. He was able to swallow some with nursing staff today. The important thing for him today is continued lactulose. If he is unable to tolerate oral lactulose will need to proceed with rectal. Exam Vital Signs (past 8 hours): - 12/17/20 02:05 12/17/20 02:10 12/17/20 02:15 Temperature Pulse Rate 71 70 70 Respiratory Rate 16 14 13 Blood Pressure Pulse Oximetry 100 99 99 12/17/20 02:20 12/17/20 02:25 12/17/20 02:30 Temperature Pulse Rate 73 71 72 Respiratory Rate 25 H 17 15 Blood Pressure Pulse Oximetry 99 99 99 12/17/20 02:35 12/17/20 02:40 12/17/20 02:45 Temperature Pulse Rate 71 72 69 Respiratory Rate 16 19 14 Blood Pressure Pulse Oximetry 98 100 100 12/17/20 02:50 12/17/20 02:55 12/17/20 03:00 Temperature Pulse Rate 71 73 70 Respiratory Rate 12 17 14 Blood Pressure 110/58 L Pulse Oximetry 99 99 99 12/17/20 03:05 12/17/20 03:10 12/17/20 03:15 Temperature Pulse Rate 72 72 74 Respiratory Rate 17 19 22 Blood Pressure Pulse Oximetry 100 100 98 12/17/20 03:20 12/17/20 03:25 12/17/20 03:30 Temperature Pulse Rate 75 71 72 Respiratory Rate 19 19 23 Blood Pressure Pulse Oximetry 98 98 100 12/17/20 03:35 12/17/20 03:40 12/17/20 03:45 Temperature Pulse Rate 70 70 70 Respiratory Rate 16 13 9 L Blood Pressure Pulse Oximetry 98 99 99 12/17/20 03:50 12/17/20 03:55 12/17/20 04:00 Temperature Pulse Rate 69 69 68 Respiratory Rate 12 11 L 13 Blood Pressure 122/59 L Pulse Oximetry 98 99 98 12/17/20 04:05 12/17/20 04:10 12/17/20 04:15 Temperature Pulse Rate 69 70 70 Respiratory Rate 10 L 16 15 Blood Pressure Pulse Oximetry 98 99 99 12/17/20 04:20 12/17/20 04:25 12/17/20 04:30 Temperature Pulse Rate 72 74 74 Respiratory Rate 18 21 20 Blood Pressure Pulse Oximetry 99 98 99 12/17/20 04:35 12/17/20 04:40 12/17/20 04:45 Temperature Pulse Rate 71 71 72 Respiratory Rate 17 18 15 Blood Pressure Pulse Oximetry 99 99 99 12/17/20 04:50 12/17/20 04:55 12/17/20 05:00 Temperature 97.5 F L Pulse Rate 69 72 71 Respiratory Rate 16 14 16 Blood Pressure 116/57 L 110/57 L Pulse Oximetry 100 99 100 12/17/20 05:05 12/17/20 05:10 12/17/20 05:15 Temperature Pulse Rate 74 72 72 Respiratory Rate 21 12 16 Blood Pressure Pulse Oximetry 98 99 99 12/17/20 05:20 12/17/20 05:25 12/17/20 05:30 Temperature Pulse Rate 71 70 72 Respiratory Rate 10 L 13 16 Blood Pressure Pulse Oximetry 98 98 99 12/17/20 05:35 12/17/20 05:40 12/17/20 05:45 Temperature Pulse Rate 71 72 71 Respiratory Rate 18 13 16 Blood Pressure Pulse Oximetry 99 98 98 12/17/20 05:50 12/17/20 05:55 12/17/20 05:59 Temperature Pulse Rate 70 71 71 Respiratory Rate 15 15 17 Blood Pressure Pulse Oximetry 99 99 99 12/17/20 06:00 12/17/20 07:00 12/17/20 08:00 Temperature 98.5 F 97.9 F Pulse Rate 69 68 Respiratory Rate 16 16 Blood Pressure 120/59 L 104/57 L 112/58 L Pulse Oximetry 99 100 12/17/20 08:26 12/17/20 09:00 Temperature 98.7 F Pulse Rate 69 72 Respiratory Rate 16 16 Blood Pressure 116/61 Pulse Oximetry 100 99 Fraction of Inspired Oxygen 30 Oxygen Delivery Method Room Air Oxygen Flow Rate 0 Narrative Exam Narrative: General: Chronically ill-appearing, obese male, Somnolent, arousable but minimal speech and cough. Slightly more alert this AM compared to previous day. SKIN: Inspection of the skin reveals no rashes, ulcerations or petechiae. faint jaundice. HEENT: Normocephalic atraumatic, extraocular muscles are intact, oropharynx is clear and mucous membranes are moist. NECK: Supple and symmetric. There was no thyroid enlargement, and no tenderness, or masses were felt. CHEST: Normal AP diameter and normal contour without any kyphoscoliosis. LUNGS: Auscultation of the lungs revealed diminished breath sounds bilaterally due to shallow respirations but no wheezing, rhonchi, or rales. CARDIOVASCULAR: There was a regular rate and regular rhythm without any murmurs, gallops, rubs. Peripheral pulses were 2+ and symmetric. ABDOMEN: Soft, nondistended with hypoactive bowel sounds. MUSCULOSKELETAL: No obvious joint effusions or deformities. EXTREMITIES: No cyanosis, clubbing. no edema on today's exam. NEUROLOGIC: somnolent, opens eyes to name, follows commands. Objective Labs Result Diagrams: 12/16/20 04:24 12/16/20 04:24 [facility] Medical History (Updated 12/14/20 @ 00:39 by Jeannie Yu [facility]) Anasarca Ascites Asthma Elevated brain natriuretic peptide (BNP) level Hepatitis C Hypertension Liver cancer Liver cirrhosis Surgical History History of surgery of liver Family History Father Trauma Mother Sjogrens syndrome Sister No significant medical problems Social History household members: spouse Smoking Status: Former smoker alcohol intake: former Assessment & Plan Assessment & Plan narrative: Patient is a 65-year-old male with chronic hep C cirrhosis, ascites, history of resection of hepatocellular carcinoma, chronic kidney disease, asthma sent to emergency department for acute confusion. Admitted for hepatic encephalopathy. 1. Acute hepatic encephalopathy - patient intubated in the ER for combativeness. He appeared dehydrated with an elevated hemoglobin and compared to his baseline although he did have some possible coffee-ground appearance to his NG tube output. Started on protonix empirically, but no further evidence of GI bleeding and this was likely due to trauma during intubation. Decreased to 20 mg IV daily. -Patient was difficult to wean from sedation, ultimately extubated 3/8 after 6 days but remains quite somnolent likely from prolonged need for sedatives. Will continue to monitor off of propofol, continue lactulose either orally if tolerated or rectally, and if no improvement in a few days consider MRI or repeat CT for further evaluation. -no overt pathology identified on abdominal CT or CXR. Head CT also unremarkable. -no leukocytosis, and CT imaging shows a small amount of ascites. abdominal ultrasound at bedside with no fluid for abdominal paracentesis on admission. -continue lactulose -troponin within normal limits. rehydated on admission. -consider rifaximin given compliance issues. 2. hepatitis-C cirrhosis - bilirubin has improved since previous admission. Stable since admission here. 3. Cirrhotic ascites - will continue to hold home bumex and aldactone given dehydration on admission. consider resuming home diuretics or decreasing to furosemide and aldactone once more alert. 4. LALITHA on Chronic kidney disease III - resolved - suspect secondary to dehydration, Cr 1.67 on admission now improved with holding his home diuretics to 1.14. 5. Elevated lactic acid, resolved. - continued rehydration until lactate <2. Code: Full, unable to discuss this admission but previously discussed during his last admission. Surrogate decision maker is the patient's Spouse. Dispo: ADmitted to ICU, PT/OT/speech pending, stable for regular floor today. DVT: SCDs given possible UGI bleeding and cirrhosis. will continue to monitor at this time. FEN/GI: advance as tolerated once more alert, continue to attempt bedside swallow evaluations throughout the day as his mental status improves.
[2020-12-18] VITALS (9 sets, daily range): BP systolic 115–140; BP diastolic 56–71; PULSE 64–79; RESP 17–23; TEMP 36–36.6; O2SAT 95–98
[2020-12-18] MEDS: MORPHINE 2 MG/ML INJ IV (03:37)
[2020-12-18 06:41] LABS: Alanine Aminotransferase 28 IU/L (<50); Albumin 2.3 g/dL (3.5-5.0); Albumin Globulin Ratio 0.6 (1.0-2.8); Alkaline Phosphatase 150 U/L (38-126); Aspartate Aminotransferase 52 IU/L (17-59); BUN Creatinine Ratio 36.5 (6-22); Bilirubin Conjugated 0.1 md/dL (0.0-0.3); Bilirubin Total 3.9 mg/dL (0.2-1.3); Bilirubin Unconjugated 2.7 mg/dL (0.0-1.1); Blood Urea Nitrogen 35 mg/dL (9-20); Calcium 8.4 mg/dL (8.4-10.2); Carbon Dioxide 27 mmol/L (22-32); Chloride 111 mmol/L (98-107); Estimated Glomerular Filt Rate > 60.0 mL/min (>60); Globulin 3.9 g/dL (1.7-4.1); Glucose 117 mg/dL (80-110); HEMOLYSIS < 15 (0-50); Magnesium 2.4 mg/dL (1.6-2.3); Potassium 4.4 mmol/L (3.4-5.1); Sodium 138 mmol/L (137-145); Total Protein 6.2 g/dL (6.3-8.2)
[2020-12-18] MEDS: LACTULOSE 20 GM/30 ML SOLUTION 40 GM PO ×2 (10:14→21:17)
[2020-12-18] MEDS: PANTOPRAZOLE 40 MG VIAL IV (10:57)
[2020-12-18] MEDS: SODIUM CHLORIDE 0.9% FLUSH 10 ML IV ×2 (10:57→21:17)
--- NOTE | 2020-12-18 13:58 | PT.IIE ---
Current Diagnoses Acute and subacute hepatic failure without coma (12/10/20) Presence of other specified devices (12/10/20) Surgical History (Last Reviewed 12/10/20 @ 17:36 by Wero Bolaños DO) History of surgery of liver Medical History (Last Reviewed 12/10/20 @ 17:36 by Wero Bolaños DO) Anasarca Ascites Asthma Elevated brain natriuretic peptide (BNP) level Hepatitis C Hypertension Liver cancer Liver cirrhosis Physical Therapy Inpatient Evaluation/Re-Eval M1 PT/OT-IP Prior Functional Status Start: 12/18/20 14:18 Freq: NEEDED Status: Active Protocol: Document 12/18/20 14:18 CGR (Rec: 12/18/20 14:40 CGR [id number]) Medical Review Prior Functional Status Medical History Reviewed Yes Communication Pt has limited communication at this time. Mobility and Gait Per chart, pt used a FWW for household distances with someone near by for mobility. Pt was mostly bedbound. Activities of Daily Living and IADL's Per chart, pt needed assist with all ADLs but was able to get into shower for bathing. Pt uses a 2 bucket system for urination from bed. Social History Household Members spouse Living Arrangements Mobile home Number of Floors (Floors) One Floor Number of Stairs To Enter/Railing? packed dirt ramp and 1 step to enter. Home Environment Standard Height Toilet,Tub/ Shower Home Equipment Front Wheel Walker,Straight Cane,Crutches Employment Status Unemployed M1 PT/OT-IP Prior Functional Status Start: 12/18/20 14:28 Freq: NEEDED Status: Active Protocol: Document 12/18/20 13:58 AB (Rec: 12/18/20 15:08 AB [id number]) Medical Review Prior Functional Status Medical History Reviewed Yes Communication pt is lethargic and with confusion Mobility and Gait unable to obtain PLOF and home set up from pt. Per EMR: pt is mostly bed bound but able to ambulate using FWW mostly to use the toilet only. Social History Household Members spouse Living Arrangements House Number of Floors (Floors) One Floor Number of Stairs To Enter/Railing? 1 step to enter Home Environment Standard Height Toilet,Tub/ Shower Home Equipment Front Wheel Walker,Straight Cane,Crutches M2 PT-IP Current Condition Start: 12/18/20 14:28 Freq: NEEDED Status: Active Protocol: Document 12/18/20 13:58 AB (Rec: 12/18/20 15:08 AB [id number]) Physical Therapy Current Condition Current Condition Evaluation Date 12/18/20 Treatment Diagnosis acute hepatic encephalopathy; difficulty in walking Onset Date 12/10/20 Precautions Other Precautions falls M3 PT-IP Subjective Start: 12/18/20 14:28 Freq: NEEDED Status: Active Protocol: Document 12/18/20 13:58 AB (Rec: 12/18/20 15:08 AB [id number]) Subjective Physical Therapy Visit Type Type Initial Evaluation Visit Start Time 13:58 Visit Stop Time 14:14 Total Visit Minutes 16 Notes BALE COVERER in room to evaluate pt but needs pt up on the chair. PT /OT co-evaluated to mobilize pt up to chair. Number of EARLY CHILDHOOD LEAD TEACHER Visits 0 M4 PT-IP Mobility and Gait Start: 12/18/20 14:28 Freq: NEEDED Status: Active Protocol: Document 12/18/20 13:58 AB (Rec: 12/18/20 15:08 AB [id number]) PT-Bed Mobility Assessment Supine to Sit Supine to Sit Maximum Assistance,2 Person Assistance,Head of Bed Elevated Scooting Scooting to Edge of Bed Dependent PT-Transfer Assessment Sit to and From Stand Sit to and from Stand Maximum Assistance,Total Assistance,2 Person Assistance ,Use of Upper Extremities Equipment Transfer Assistive Device Gait Belt,Front Wheeled Walker Orthotic/Prosthetic Devices or Brace: No Transfers Transfer Destination Chair Transfer Technique Stand Pivot Transfer Ability Level of Assist Total Assistance,2 Person Assistance,Use of Upper Extremities Comments Mobility Comments pt requires constant cues to stay awake and has difficulty following directions. completed supine to sit max A x 2 and max cues. pt was able to sit on EOB with initial max A and after repositioning was able to maintain mod A. pt completed sit to stand max A x 2-3 to total A x 2-3. has increase posterior LOB and requires max A x 2 for stability and another person to stabilize the FWW. pt was able to stand for ~ 10-12 sec and has to sit down. attempted sit to stand again max A x 2-3 to total A x 2-3 and completed pivot transfer to chair total A x 2-3. positioned pt on chair total Ax 2 and cues. Left pt with BALE COVERER. Gait Assessment Comments Gait Comments unable at this time PT-Balance Assessment Sitting Balance and Reactions Static Sitting Balance Ability Fair Dynamic Sitting Balance Ability Poor Standing Balance and Reactions Static Standing Balance Ability Poor Dynamic Standing Balance Ability Poor Device Used FWW M5 PT-IP Objective Assessments Start: 12/18/20 14:28 Freq: NEEDED Status: Active Protocol: Document 12/18/20 13:58 AB (Rec: 12/18/20 15:08 AB [id number]) Orientation Orientation/Cognition Level of Alertness Lethargic Safety Awareness Decreased Safety Awareness Gross Range of Motion Lower Extremity ROM Assessment Within Functional Limits Strength Comments Strength Comments unable to complete MMT due to pt's difficulty following directions Muscle Tone Muscle Tone WNL Yes M6 PT-IP Treatment Start: 12/18/20 14:28 Freq: NEEDED Status: Active Protocol: Document 12/18/20 13:58 AB (Rec: 12/18/20 15:08 AB [id number]) Physical Therapy Treatment Education Education Provided Safety M7 PT-IP Assessment and Plan Start: 12/18/20 14:28 Freq: NEEDED Status: Active Protocol: Document 12/18/20 13:58 AB (Rec: 12/18/20 15:08 AB [id number]) PT Summary Assessment and Plan Potential Rehabilitation Potential Fair Status of Condition at Evaluation Evolving Summary Impairments Pain,ROM,Strength,Balance, Coordination,Sensation,Tone, Cognition,Bed Mobility, Transfers,Gait,Activity Tolerance Assessment Summary pt requiring max A x 2-3 to total A x 2-3 and unable to participate much due to decrease alertness and confusion. pt will require SNF rehab to improve strength and mobility. Goals Bed Mobility Goal Minimal Assistance Transfer Goal Minimal Assistance,Front Wheeled Walker Gait Goal Minimal Assistance,Front Wheel Walker Gait Distance 25 Other Goals improve bed mobility SBA, transfers CGA using FWW abd ambulation using FWW CGA 50 ft Days to Meet Goals 10 Frequency of Treatment Frequency Of Treatment Once a Day Treatment Plan Physical Therapy Treatment Plan Bed Mobility Training,Transfer Training,Gait Training, Therapeutic Exercise,Balance Retraining,Discharge Planning, Hot or Cold Pack,Neuromuscular Re-ed,Coordination Retraining Precautions Other Precautions falls Recommendations To Nursing Amount of Assist Needed Mechanical Lift Discharge Recommendations PT Discharge Recommendations SNF Rehab Transportation Needs at Discharge Wheelchair/Cabulance
--- NOTE | 2020-12-18 14:14 | OT.IP.EVAL ---
Current Diagnoses Acute and subacute hepatic failure without coma (12/10/20) Presence of other specified devices (12/10/20) Past Medical History (Last Reviewed 12/10/20 @ 17:36 by Wreo Bolaños DO) Anasarca Ascites Asthma Elevated brain natriuretic peptide (BNP) level Hepatitis C Hypertension Liver cancer Liver cirrhosis Surgical History (Last Reviewed 12/10/20 @ 17:36 by Wero Bolaños DO) History of surgery of liver Occupational Therapy Inpatient Evaluation/Re-Eval M1 PT/OT-IP Prior Functional Status Start: 12/18/20 14:18 Freq: NEEDED Status: Active Protocol: Document 12/18/20 14:18 CGR (Rec: 12/18/20 14:40 CGR [id number]) Medical Review Prior Functional Status Medical History Reviewed Yes Communication Pt has limited communication at this time. Mobility and Gait Per chart, pt used a FWW for household distances with someone near by for mobility. Pt was mostly bedbound. Activities of Daily Living and IADL's Per chart, pt needed assist with all ADLs but was able to get into shower for bathing. Pt uses a 2 bucket system for urination from bed. Social History Household Members spouse Living Arrangements Mobile home Number of Floors (Floors) One Floor Number of Stairs To Enter/Railing? packed dirt ramp and 1 step to enter. Home Environment Standard Height Toilet,Tub/ Shower Home Equipment Front Wheel Walker,Straight Cane,Crutches Employment Status Unemployed M2 OT-IP Current Condition Start: 12/18/20 14:18 Freq: Status: Active Protocol: Document 12/18/20 14:18 CGR (Rec: 12/18/20 14:40 CGR [id number]) Occupational Therapy Current Condition Current Condition Evaluation Date 12/18/20 Treatment Diagnosis hepatic encephalopathy, extubated 12/17/20 Diagnosis Onset Date 12/10/20 M3 OT- IP Subjective and Pain Start: 12/18/20 14:18 Freq: Status: Active Protocol: Document 12/18/20 14:18 CGR (Rec: 12/18/20 14:40 CGR [id number]) OT- Subjective Occupational Therapy Visit Type Type Initial Evaluation Visit Start Time 13:58 Visit Stop Time 14:14 Total Visit Minutes 16 Notes co-treat with P.T., ST present for transfer. OT Pain Assessment Pain When Pain Assessed At Rest Pain Present Pain Present Unable to Respond FLACC Pain Scale Face No particular expression Legs Normal position; relaxed Activity Squirming,shifting Cry Moans/whimpers/complains Consolability Reassurable with touch FLACC Total 3 M4 OT- IP ADL's Start: 12/18/20 14:18 Freq: Status: Active Protocol: Document 12/18/20 14:18 CGR (Rec: 12/18/20 14:40 CGR [id number]) OT [id number] Comments OT Self-Feeding Comments not meal time OT ADL-Grooming Comments OT Grooming Comments not performed OT ADL-Oral Care Comments Oral Care Comments not performed OT ADL-Dressing General Eval Lower Body Dressing Ability Total Assistance Areas Needing Assistance Socks OT ADL-Toileting Comments OT Toileting Comments not performed OT ADL-Bathing Comments OT Bathing Comments not performed M5 OT- IP IADL's Start: 12/18/20 14:18 Freq: Status: Active Protocol: Document 12/18/20 14:18 CGR (Rec: 12/18/20 14:40 CGR [id number]) OT-Instrumental Activities of Daily Living Deficits IADL Deficits Identified Deficits Home Safety Awareness Awareness of Need for Assistance at Home Decreased Awareness Ability to Problem Solve Emergency Unable to Problem Solve Situations Medication Management Medication Management Caregiver Administers Money Management Money Management Caregiver Provides Assistance Meal Preparation Meal Preparation Caregiver Provides Assist Leather Production Artisan Leather Production Artisan Caregiver Provides Assist Driving Driving Comments PT does not drive at baseline. M6 OT- IP Functional Cognition Start: 12/18/20 14:18 Freq: Status: Active Protocol: Document 12/18/20 14:18 CGR (Rec: 12/18/20 14:40 CGR [id number]) Cognitive Factors Limiting Selfcare Function Cognitive Ability Level of Alertness Confusional State,Drowsy Attention Span Ability Unable to Focus,Unable to Sustain Attention Cognitive Comments Cognitive Assessment Comments Pt was able to follow simple commands inconsistently OT- Vision and Hearing OT- Vision Assessment Vision Assessment Comments Unable to assess M7 OT- IP Mobility and Balance Start: 12/18/20 14:18 Freq: Status: Active Protocol: Document 12/18/20 14:18 CGR (Rec: 12/18/20 14:40 CGR [id number]) OT- Bed Mobility Assessment Supine to Sit Supine to Sit Assist Maximum Assistance,2 Person Assistance,Head of Bed Elevated Scooting Scooting to Edge of Bed Maximum Assistance,2 Person Assistance OT-Transfer Assessment Sit to and From Stand Sit to and from Stand Maximum Assistance,Total Assistance,2 Person Assistance Transfers Transfer Ability Total Assistance,2 Person Assistance Technique Transfer Destination Bed,Chair Transfer Technique Stand Step Pivot Devices Transfer Assistive Devices Gait Belt,Front Wheeled Walker Comments Mobility Comments Pt performed sit to stand initially with max vc for upright posture but was unable to take steps. Repositioned seated EOB and stand pivot to the chair with total assist x 2-3 person. OT- Gait Assessment Comments Gait Ability Comments not performed OT- Balance Assessment Sitting Balance and Reactions Static Sitting Balance Ability Fair Dynamic Sitting Balance Ability Poor M8 OT- IP Objective Assessments Start: 12/18/20 14:18 Freq: Status: Active Protocol: Document 12/18/20 14:18 CGR (Rec: 12/18/20 14:40 CGR [id number]) OT Gross Range of Motion Upper Extremity Range of Motion Assessment Within Functional Limits OT Strength Comments Strength Comments Unable to test, pt unable to follow commands to perform. Difficulty getting hand to nose upon request OT- Coordination Assessment Upper Extremity Finger to Nose Test Bilateral UE Impaired Finger Tapping Test Bilateral UE Impaired OT-Muscle Tone Assessment Muscle Tone WNL Yes OT Sensation Assessment Edema Edema Absent M9 OT- IP Assessment and Plan Start: 12/18/20 14:18 Freq: Status: Active Protocol: Document 12/18/20 14:18 CGR (Rec: 12/18/20 14:40 CGR [id number]) OT Summary Assessment and Plan Potential Rehabilitation Potential Fair Analytic Complexity at Evaluation High Summary OT Impairments Strength,Balance,Coordination, Functional Cognition, Functional Mobility,Self- Feeding,Grooming,Dressing, Toileting,Bathing,Toilet Transfers,Shower Transfers, Activity Tolerance Progress Towards Goals Slow Progress due to Medical Issues,Slow Progress due to Activity Tolerance,Slow Progress due to Cognition Assessment Summary Pt presents as a high complexity evaluation s/p admit for hepatic encephalopathy. Pt was intubated upon admit and extubated 12/17/20. Pt participated in limited OT eval on this date. Pt is able to follow some simple commands inconsistently. Pt will benefit from continued OT services. Recommend discharge to SNF and co-treats at this time. Goals Self-Feeding Goal Independent Grooming Goal Independent Dressing Goal Moderate Assistance Toileting Goal Moderate Assistance Bathing Goal Moderate Assistance Toilet Transfer Goal Moderate Assistance Shower Transfer Goal Moderate Assistance Days to Meet Goals 30 Frequency of Treatment Frequency Of Treatment Once a Day Treatment Plan OT Treatment Plan ADL Training,Functional Cognition Training,Functional Mobility,Patient/Family Education,Discharge Planning Discharge Recommendations OT Discharge Recommendations SNF Rehab Home Equipment Needs TBD Transportation Needs at Discharge Wheelchair/Cabulance
--- NOTE | 2020-12-18 14:32 | PM.PN.1 ---
Subjective Subjective Date Patient Seen: 12/18/20 Interval history: The patient is a 65-year-old male who was admitted to the hospital 8 days ago after an episode of encephalopathy associated with agitation. Patient required intubation and was extubated 2 days ago. Since that time he has been somewhat lethargic although more arousable. He is minimally conversant but awake and moving. Patient indicates he is hungry. Exam Vital Signs (past 8 hours): - 12/18/20 07:56 12/18/20 08:45 12/18/20 11:15 Temperature 97.0 F L 97.2 F L Pulse Rate 72 64 68 Respiratory Rate 23 20 Blood Pressure 115/57 L 125/56 L 126/69 Pulse Oximetry 96 98 98 Fraction of Inspired Oxygen 30 Oxygen Delivery Method Room Air Oxygen Flow Rate 0 Narrative Exam Narrative: Ill-appearing jaundice male lying in bed Lungs decreased breath sounds with scattered crackles bilaterally Cardiac exam: Regular rate and rhythm normal S1-S2 Abdomen: Obese soft and nontender Extremities: 1+ edema Skin: The patient is jaundice : Lopez catheter in place Objective Labs Result Diagrams: 12/16/20 04:24 12/18/20 06:05 Labs: Laboratory Results - last 24 hr 12/18/20 06:05 Sodium 138 Potassium 4.4 Chloride 111 H Carbon Dioxide 27 BUN 35 H Creatinine 0.96 Estimated GFR > 60.0 BUN/Creatinine Ratio 36.5 H Glucose 117 H Calcium 8.4 Magnesium 2.4 H Total Bilirubin 3.9 H Conjugated Bilirubin 0.1 Unconjugated Bilirubin 2.7 H AST 52 ALT 28 Alkaline Phosphatase 150 H Total Protein 6.2 L Albumin 2.3 L Globulin 3.9 Albumin/Globulin Ratio 0.6 L [facility] Medical History (Updated 12/14/20 @ 00:39 by Jeannie Yu [facility]) Anasarca Ascites Asthma Elevated brain natriuretic peptide (BNP) level Hepatitis C Hypertension Liver cancer Liver cirrhosis Surgical History History of surgery of liver Family History Father Trauma Mother Sjogrens syndrome Sister No significant medical problems Social History household members: spouse Smoking Status: Former smoker alcohol intake: former Assessment & Plan Assessment & Plan narrative: Impression 1. Acute respiratory failure, -patient was extubated 2 days ago. He was intubated for 6 days due to apnea -he is oxygenating well, and not requiring additional oxygen 2. End-stage liver disease, complicated by hepatic encephalopathy -patient appears to continue to be encephalopathic -will hold benzodiazepine -continue lactulose 3. Hepatitis-C with cirrhosis -continue current treat 4. Abdominal ascites -secondary to cirrhosis -Bumex on hold 5. Acute kidney in injury present on admission, now resolved 6. For today will discontinue Lopez catheter, speech evaluation, advanced diet, PT OT consultation. Disposition planning underway
--- NOTE | 2020-12-18 16:54 | ST.IPCSEOM ---
Visit Care Team Role Provider Type Pancho Payan MD Primary Care Provider Non-Staff Specialty: Internal Medicine Address: [address] [place] [address], [id number] Email: Chivo Mcguire MD Emergency Provider Physician Referring Provider Specialty: Emergency Medicine Address: [address] [place] [address], [id number] Email: [email or web address] Wero Bolaños DO Admit Provider Physician Attending Provider Specialty: Internal Medicine Address: [address] [place] [address], [id number] Email: [email or web address] Current Diagnoses Acute and subacute hepatic failure without coma (12/10/20) Presence of other specified devices (12/10/20) Past Medical History (Last Reviewed 12/10/20 @ 17:36 by Wero Bolaños DO) Anasarca (Medical) Ascites (Medical) Asthma (Medical) Elevated brain natriuretic peptide (BNP) level (Medical) Hepatitis C (Medical) Hypertension (Medical) Liver cancer (Medical) Liver cirrhosis (Medical) Speech-Language Pathology Swallow Evaluation 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 Patient required intubation and was extubated 2 days ago. Since that time he has been somewhat lethargic although more arousable. He is minimally conversant but awake and moving. Patient indicates he is hungry. Subjective Observations Pt was working with PT to get to the bedside chair. He was arousable but still somnolent. Answered questions and followed directions from PT. Reported by Patient Comment Pt was intubated x 6 days, He was extubated 2 days ago. Current Diet Nothing by mouth Baseline Feeding Method Dependent for feeding Objective Assessment Mental Status Cooperative,Confused,Lethargic Dentition Missing teeth,Decay Lip Function Within normal limits Observation of Lips at Rest Symmetrical Pucker Within normal limits Comment Unable to complete OME due to pt's lethargy. During PO trials he was observed to pucker lips, lick lips and open his mouth. Food and Liquid Trials Position During Assessment Upright (90 degrees) Liquids Trialed Ice chips,Thin,[place] Solids Trialed Puree Administration Type Tea spoon,Controlled cup sip, Straw,Dependent feeding Oral Phase Comments For PO trials, the pt needed frequent reminders to stay awake. He would open his eyes and answer questions with Y/N answers. he was observed to suck on an ice cube, take trials with a spoon and a straw. Pharyngeal Impairment Within functional limits Pharyngeal Phase Comments Pharyngeal phase appeared to be WFL for the trials presented. Hyolaryngeal elevation was adequate per palpation. No audible swallow, no delayed swallow. He cleared his throat x3 with the ice cube and sip of thin liquids. With nectar thick liquids no throat clear or cough were observed. Using a straw he was able to suck 3-4 boluses and swallow without cough or choke. No wet voicing following all trials. Puree texture was also safely swallowed without s/sx aspiration. Silent aspiration cannot be ruled out. Instrumental assessment would be needed to r/o silent aspiration. Pt is not a candidate for MBSS at this time. Fatigue/Endurance Moderate fatigue Comment Fiven the patient's level of mentation, no further trials were attempted. It is recommended that the pt be alert before eating. He needed 1:1 assistance during assessment. Findings Swallowing Function Dysphagia unspecified Severity of Swallow Impairment Mildly-moderately impaired Contributing Factors to Swallow Reduced alertness or attention Impairment ,Reduced oral strength/ coordination/sensation, Mastication inefficiency, Delayed swallow initiation, Excessive pharyngeal residue Prognosis Fair Based on Cognitive status,Comorbidities ,Other (comment) Comment Extended intubation Impact on Safety and Functioning Risk for aspiration,Risk for inadequate nutrition/hydration Recommendations Instrumental Assessment No Swallowing Treatment Yes Frequency daily while inpatient Recommended Solids Puree Recommended Liquids [place] Safety Precautions/Swallowing To be fed only by trained Recommendations staff/family,Feed only when alert,Remain upright (90 degrees) during all oral intake,Needs verbal cues to use recommended strategies, Upright position at least 30 minutes after meals,Small bites and sips when eating, Slow rate; swallow between bites,Sensory enhancement ( flavor, texture, temperature), 1 to 1 feeding assistance, Strict oral care after intake Medication Recommendations Crushed in Carrier Discharge Recommendations superintendent terminal care facility,Home with Hospice,Palliative care Goals Long-term Goals Pt will safely tolerate the least restrictive diet to meet hydration and nutrition needs without s/sx aspiration.
--- NOTE | 2020-12-18 22:35 | PC.NURSE ---
Pt more awake late in the shift, able to ask for the bedpan appropriately. Denies pain. Oriented to self only, unable to say where he is or what the year is.
--- NOTE | 2020-12-18 22:52 | PC.NURSE ---
Has not voided this shift, bladder scan done, 244cc scanned. Pt states no urge to void.
[2020-12-19 00:09] VITALS: BP 122/67; PULSE 68; RESP 20; TEMP 36; O2SAT 99
[2020-12-19 03:42] VITALS: BP 131/60; PULSE 64; RESP 20; TEMP 35.9; O2SAT 99
[2020-12-19 05:33] LABS: Add Manual Diff / Slide Review NO; Basophils Absolute Auto 100 /uL (0-100); Basophils Percent Auto 0.8 % (0-2); Eosinophils Absolute Auto 200 /uL (0-450); Eosinophils Percent Auto 3.5 % (2-4); Hematocrit 28.6 % (41-53); Hemoglobin 9.8 g/dL (13.5-17.5); Lymphocytes Absolute Auto 500 /uL (1100-4500); Lymphocytes Percent Auto 6.4 % (25-40); Mean Corpuscular HGB Conc 34.2 % (30-36); Mean Corpuscular Hemoglobin 33.8 PG (26-34); Mean Corpuscular Volume 98.6 fL (80-100); Monocytes Absolute Auto 1100 /uL (0-900); Monocytes Percent Auto 14.9 % (3-14); Neutrophils Absolute Auto 5300 /uL (1500-7000); Neutrophils Percent Auto 74.4 % (50-75); Platelet Count 64 X10^3/uL (150-400); White Blood Cell Count 7.1 X10^3/uL (4.5-11.0)
[2020-12-19 05:43] LABS: Alanine Aminotransferase 29 IU/L (<50); Albumin 2.4 g/dL (3.5-5.0); Albumin Globulin Ratio 0.6 (1.0-2.8); Alkaline Phosphatase 148 U/L (38-126); Aspartate Aminotransferase 55 IU/L (17-59); BUN Creatinine Ratio 37.9 (6-22); Bilirubin Total 3.7 mg/dL (0.2-1.3); Blood Urea Nitrogen 36 mg/dL (9-20); Calcium 8.6 mg/dL (8.4-10.2); Carbon Dioxide 25 mmol/L (22-32); Chloride 111 mmol/L (98-107); Estimated Glomerular Filt Rate > 60.0 mL/min (>60); Globulin 3.9 g/dL (1.7-4.1); Glucose 143 mg/dL (80-110); HEMOLYSIS < 15 (0-50); Potassium 4.2 mmol/L (3.4-5.1); Sodium 138 mmol/L (137-145); Total Protein 6.3 g/dL (6.3-8.2)
[2020-12-19 05:45] LABS: Alanine Aminotransferase 29 IU/L (<50); Albumin 2.4 g/dL (3.5-5.0); Albumin Globulin Ratio 0.6 (1.0-2.8); Alkaline Phosphatase 150 U/L (38-126); Aspartate Aminotransferase 52 IU/L (17-59); Bilirubin Total 3.6 mg/dL (0.2-1.3); Bilirubin Unconjugated 2.4 mg/dL (0.0-1.1); Globulin 3.8 g/dL (1.7-4.1); HEMOLYSIS < 15 (0-50); Magnesium 2.4 mg/dL (1.6-2.3); Total Protein 6.2 g/dL (6.3-8.2)
[2020-12-19 08:00] VITALS: BP 116/56; PULSE 65; RESP 19; TEMP 36.7; O2SAT 99
[2020-12-19] MEDS: LACTULOSE 20 GM/30 ML SOLUTION 40 GM PO (08:58)
[2020-12-19] MEDS: PANTOPRAZOLE 40 MG VIAL IV (08:58)
[2020-12-19] MEDS: SODIUM CHLORIDE 0.9% FLUSH 10 ML IV (08:59)
--- NOTE | 2020-12-19 10:15 | PT.IPTN ---
Current Diagnoses Acute and subacute hepatic failure without coma (12/10/20) Presence of other specified devices (12/10/20) Physical Therapy Treatment Note M2 PT-IP Current Condition Start: 12/18/20 14:28 Freq: NEEDED Status: Active Protocol: Document 12/18/20 13:58 AB (Rec: 12/18/20 15:08 AB [id number]) Physical Therapy Current Condition Current Condition Evaluation Date 12/18/20 Treatment Diagnosis acute hepatic encephalopathy; difficulty in walking Onset Date 12/10/20 Precautions Other Precautions falls M3 PT-IP Subjective Start: 12/18/20 14:28 Freq: NEEDED Status: Active Protocol: Document 12/19/20 10:14 AW (Rec: 12/19/20 10:18 AW [id number]) Subjective Physical Therapy Visit Type Type Treatment Note Visit Start Time 09:58 Visit Stop Time 10:14 Total Visit Minutes 16 Notes ECHOCARDIOGRAPHER povided assist for transfer. Number of APPELLATE COURT JUDGE Visits 0 Physical Therapy Visit Comments Patient Comments Pt answers yes/no and attempts to recite the lyrics to a song. M4 PT-IP Mobility and Gait Start: 12/18/20 14:28 Freq: NEEDED Status: Active Protocol: Document 12/19/20 10:14 AW (Rec: 12/19/20 10:18 AW [id number]) PT-Transfer Assessment Sit to and From Stand Sit to and from Stand Maximum Assistance,Total Assistance,2 Person Assistance Equipment Transfer Assistive Device Gait Belt,Front Wheeled Walker Orthotic/Prosthetic Devices or Brace: No Transfers Transfer Destination Chair Transfer Technique Stand Step Pivot Transfer Ability Level of Assist Maximum Assistance,2 Person Assistance,Use of Upper Extremities Comments Mobility Comments Pt more alert today but continues to struggle with one -step directions. He had been hoyered to the commode and wanted to return to chair. PT and ECHOCARDIOGRAPHER provided max assist to stand, assist to transfer hands from commode to walker, and verbal/tactile cues for knee extension. Pt stood 30 seconds for pericare and then turned 180 degrees in step pivot transfer to the bedside chair, requiring max assist x 2 and max cues for walker management and direction. Total assist x 2 required .was left with ECHOCARDIOGRAPHER. Gait Assessment Comments Gait Comments Transfer only. Notable for uncorrected leftward and posterior lean in stance, similar in sitting. PT-Balance Assessment Sitting Balance and Reactions Static Sitting Balance Ability Fair Dynamic Sitting Balance Ability Poor Standing Balance and Reactions Static Standing Balance Ability Poor Dynamic Standing Balance Ability Poor Device Used FWW M5 PT-IP Objective Assessments Start: 12/18/20 14:28 Freq: NEEDED Status: Active Protocol: Document 12/18/20 13:58 AB (Rec: 12/18/20 15:08 AB [id number]) Orientation Orientation/Cognition Level of Alertness Lethargic Safety Awareness Decreased Safety Awareness Gross Range of Motion Lower Extremity ROM Assessment Within Functional Limits Strength Comments Strength Comments unable to complete MMT due to pt's difficulty following directions Muscle Tone Muscle Tone WNL Yes M6 PT-IP Treatment Start: 12/18/20 14:28 Freq: NEEDED Status: Active Protocol: Document 12/19/20 10:14 AW (Rec: 12/19/20 10:18 AW [id number]) Physical Therapy Treatment Education Education Provided Safety M7 PT-IP Assessment and Plan Start: 12/18/20 14:28 Freq: NEEDED Status: Active Protocol: Document 12/19/20 10:14 AW (Rec: 12/19/20 10:18 AW [id number]) PT Summary Assessment and Plan Potential Rehabilitation Potential Fair Status of Condition at Evaluation Evolving Summary Impairments Pain,ROM,Strength,Balance, Coordination,Sensation,Tone, Cognition,Bed Mobility, Transfers,Gait,Activity Tolerance Progress Towards Goals Slow Progress due to Medical Issues Assessment Summary Pt required max to total assist for transfer today. He has significant leftward and posterior lean in sitting and standing which he is unable to correct to midline. Pt more alert today but unable to carry on a conversation. Pt requires SNF rehab to improve strength, mobility, and ability to participate in his own care. Goals Bed Mobility Goal Minimal Assistance Transfer Goal Minimal Assistance,Front Wheeled Walker Gait Goal Minimal Assistance,Front Wheel Walker Gait Distance 25 Other Goals improve bed mobility SBA, transfers CGA using FWW abd ambulation using FWW CGA 50 ft Days to Meet Goals 10 Frequency of Treatment Frequency Of Treatment Once a Day Treatment Plan Physical Therapy Treatment Plan Bed Mobility Training,Transfer Training,Gait Training, Therapeutic Exercise,Balance Retraining,Discharge Planning, Hot or Cold Pack,Neuromuscular Re-ed,Coordination Retraining Precautions Other Precautions falls Recommendations To Nursing Amount of Assist Needed Mechanical Lift Discharge Recommendations PT Discharge Recommendations SNF Rehab Transportation Needs at Discharge Wheelchair/Cabulance
--- NOTE | 2020-12-19 10:21 | PC.NURSE ---
Addendum entered by Noemi Roland R.N. 12/19/20 13:22: Patient repositioned back to bed using cindy. Brief changed. Allyvn on coccyx changed. Patient tolerated. Addendum entered by Noemi Roland R.N. 12/19/20 13:05: Patient becoming agitated, restless in chair, denies pain but receptive to taking PRN morphine, says that will help. Administered via Midline. Patient tolerated. Will continue to monitor. Original Note: Patient A/O to self and place. Patient resting with eyes closed. Arousable. Lungs CTA, 99% on room air. Denies SOB, dizziness, pain, N/V. Pulses equal. Minimal edema noted on RLE, non-pitting. Midline intact, patent, saline locked. Patient tolerating lactulose. Moderate BM, brown, soft. Brief changed, allyvn changed over SCD's off for transfer via cindy to chair. Patient tolerated.
[2020-12-19 12:38] VITALS: BP 115/65; PULSE 78; RESP 24; TEMP 36.4; O2SAT 96
--- NOTE | 2020-12-19 12:49 | CM.DPNOTE ---
Referral clinicals faxed to [facility]- per Angelika and received fax confirmation on 12/19/20. Ban Smith CM Asst.
--- NOTE | 2020-12-19 12:52 | CM.DPC ---
Addendum entered by Angelika Whitt LPN 12/19/20 14:51: Dr. Hurst has now clarified reason for limited use of IV fluids as pt was with severe overall body fluid buildup due to his medical conditions. Cynthia is updated and will document same for her team. Addendum entered by Angelika Whitt LPN 12/19/20 13:37: Ambulance transport is now set up with service. Earliest pear picker they can do is [phone]. [facility] - test is [facility]. Snf requests RN document most recent IV fluid that was used for hydration. TAMMY Franklin is agreeable to same. Original Note: DCP: continued: Case received, EMR reviewed for last few days. Discussed in Team Rounds. Dr. Hurst stated that pt was appropriate today for d/c to snf setting. She did agree to call pt's partner Tayler to update her. Dr. Hurst later stated that she did talk with Tayler who was agreeable to the d/c to snf setting today. Have spoken with Tayler now. She is very agreeable to the d/c to [facility] today if pt is accepted and will be available to assist with paperwork and other parts of the snf POC. She is aware that pt is still confused but is beginning to work with therapy. She agrees again that if pt does not begin to recover in a meaningful way that a hospice POC would be appropriate. Have updated Cynthia. She agrees to reach out to Tayler on her cell for further discussion and coordination. Have faxed snf dc/ orders, face sheet and H&P to Cynthia so that referral can be expedited. STEFAN is Right Faxing rest of clinical for the snf team review. Pt is unable to transport safely by other that ambulance transport. Will set this up as soon as have final acceptance. Will do PASRR.
[2020-12-19] MEDS: MORPHINE 2 MG/ML INJ IV (13:01)
[2020-12-19 13:11] LABS: COVID19 -Nasal RAPID Negative (Negative)
--- NOTE | 2020-12-19 13:48 | ST.IPDYTX ---
Visit Care Team Role Provider Type Pancho Payan MD Primary Care Provider Non-Staff Specialty: Internal Medicine Address: [address] [place] [address], [id number] Email: Chivo Mcguire MD Emergency Provider Physician Referring Provider Specialty: Emergency Medicine Address: [address] [place] [address], [id number] Email: [email or web address] Physician Attending Provider Specialty: Internal Medicine Address: [address] [place] [address], [id number] Email: [email or web address] Dysphagia Treatment STOPPER SETTER Dysphagia Treatment Start: 12/19/20 13:36 Freq: Status: Active Protocol: Document 12/19/20 13:36 LNK (Rec: 12/19/20 13:48 LNK [id number]) Dysphagia Treatment Session Time Visit Start Time 12:00 Visit Stop Time 12:30 Total Visit Minutes 30 Setting Assessment Location Acute Care Visit Type Note Type Treatment Note Next Note Type Next Note Type Treatment Note Patient Information Identification Type Name,ID Wristband Subjective Observations Pt was seated in bedside chair with noon meal just delivered . Initially he refused therapy , but was encouraged to participate in meal. Treatment Liquids Trialed Ice chips,On [place] Solids Trialed Dysphagia Mechanical,Dysphagia Advanced Administration Type Tea Spoon,Cup Single Sip,Self- Feeding,Dependent Feeding Oral Strategies Upright at 90 degrees Pharyngeal Strategies Sitting Upright (90 deg),Small Bites and Sips,Alternate Liquids/Solids Treatment Activities Pt safely drank his protein shake with a straw. Minimal assistance was needed to hold the cup in place. Multiple swallows were taken without difficulty. Trial peaches and a tuna sandwich were safely tolerated. When self-feeding, pt was observed to put a very large piece of sandwich in his mouth. he safely swallowed the bolus, but was reminded to take smaler bites. Spontaneous swish and swallow following sandwich was effective in clearing oral cavity. Coughing occurred with ice chips, so no change is made in liquids at this time. Will upgrade diet to dysphagia advanced. Continue 1:1 assisted feeding secondary to impulsivity. Assessment Patient Response to Treatment Good Rehab Potential Fair Assessment of Improvement Improved level of mentation today. I feel better he stated at the start of therapy . able to tolerate a diet upgrade in texture. No change in liquids Diet Recommendations Recommendations Upgrade Diet Order Liquids Order On [place] Diet Order Dysphagia Advanced Medication Recommendations As Tolerated,Whole in Carrier, Crushed in Carrier Additional Dietary Needs 1:1 Assistance Aspiration Precautions Recommended Precautions Upright at 90 Degrees, Alternate Liquids/Solids,Small Bites/Sips Treatment Plan Placement Recommendation after Discharge Half-Way Facility Appropriate for Continued Therapy No Dysphagia Goals Pt will safely tolerate the least restrictive diet to meet hydration and nutrition needs without s/sx aspiration. Follow Up Plan as indicated while inpatient
--- NOTE | 2020-12-19 14:54 | PM.DS.1 ---
History of Present Illness History of Present Illness Date Patient Seen: 12/19/20 Chief complaint: Confusion Narrative: Patient is a 65-year-old male with chronic hep C cirrhosis, ascites, history of resection of hepatocellular carcinoma, chronic kidney disease, asthma sent to emergency department for acute confusion. He was recently discharged a few weeks ago for hepatic encephalopathy to home. History is largely obtained from the ER providers no family is available for review and patient is currently intubated. Upon arrival to the ER he was combative and would not allow for labs to be drawn or imaging to be taken. Given the need for further evaluation, the ER provider called Anesthesia for intubation. In the emergency room, the patient was hypertensive, tachycardic, and tachypneic but saturating well on room air. Initial CBC was unremarkable with a WBC of 8.7 and hemoglobin of 11.1, up from his usual baseline. Platelets were 77 also up from his usual baseline indicative of probable dehydration. ABG was unremarkable with a pH of 7.39, pCO2 of 39, and a PO2 of 278. Chemistries revealed a creatinine of 1.67 up from his baseline of around 1.3, BUN of 44, lactic acid of 4.3, total bilirubin of 4.2 which is actually down from his prior admission and relatively stable AST and ALT levels. His ammonia level was 81. Troponin was 0.026 and EKG was unremarkable. Discharge Providers Provider Date of admission: 12/10/20 16:39 Discharge Date: 12/19/20 Primary care physician: Pancho Payan MD Consults: 12/10/20 17:23 Consult to Dietitian, Adult Routine Comment: Reason For Exam: Patient on Ventilator and NPO 12/10/20 17:25 Consult to Respiratory Therapy Evaluate & Treat Comment: Physician Instructions: Evaluate and treat 12/12/20 07:39 Consult to Dietitian, Adult Routine Comment: Reason For Exam: tube feed recommendations 12/18/20 11:20 Consult to Occupational Therapy Evaluate & Treat Comment: Physician Instructions: Evaluate and treat Consult to Physical Therapy Evaluate & Treat Comment: Physician Instructions: Evaluate and Treat 12/18/20 11:33 Consult to Occupational Therapy Evaluate & Treat Comment: Physician Instructions: Evaluate and treat Consult to Physical Therapy Evaluate & Treat Comment: Physician Instructions: Evaluate and Treat Consult to Speech Therapy Evaluate & Treat Comment: Physician Instructions: Evaluate and treat 12/18/20 17:09 Consult to Dietitian, Adult Routine Comment: Reason For Exam: poor oral intake Discharge provider: Kerry Hurst MD Summary Hospital Course Discharge Diagnosis: 1. Acute hepatic encephalopathy, present on admission 2. Chronic hepatitis-C 3. Cirrhosis 4. Ascites 5. Hepatocellular carcinoma 6. Chronic kidney disease 7. Asthma 8. Opioid dependence 9. Anemia 10. Acute kidney injury pleasant present on admission, improved Hospital Course: The patient was admitted to the hospital with acute hepatic encephalopathy. In the emergency room the patient was agitated and uncooperative. As he required significant medications for sedation the patient was intubated electively to protect his airway. After intubation attempts were made to extubate the patient. He had several episodes of apnea and was unable to be extubated for approximately 5 days. The patient initially received IV fluids for hydration. Patient had improvement of his kidney function. He had acute kidney injury at the time of admission. His diuretics were held. He was given IV fluids through December 12 at which time they were discontinued. The patient ultimately was extubated 3 days ago. His Lopez catheter was removed. He was seen by PT and OT and felt to be markedly weak. He is a maximum 2 person assist. The patient's diet was advanced to a pureed nectar thick diet which he tolerated. He was placed back on lactulose for his hepatic encephalopathy. Although he is somewhat slow to respond the patient has improved clinically. He is felt to be appropriate for discharge to the care home for ongoing rehabilitation. During the hospital stay the patient had a head CT which was unremarkable. He underwent CT of the abdomen pelvis and chest which revealed the following findings: imited examination due to motion artifacts. 2. Mild interstitial and ground-glass infiltrates bilaterally. There are bibasilar dependent atelectasis. 3. Endotracheal tube and nasogastric tube are in expected position. 4. Cirrhotic liver. 5. A small amount of ascites. 6. Diverticulosis without diverticulitis. 7. Aucwwayc-wu-bksugz coronary artery atherosclerosis. Status at Discharge Cognitive/behavioral status at discharge: confused Functional status at discharge: wheelchair bound Overall status at discharge: patient is not back to baseline Time Spent with Patient Time spent: Less than 30 minutes Exam Vital Signs (past 8 hours): - 12/19/20 08:00 12/19/20 12:38 Temperature 98.0 F 97.6 F Pulse Rate 65 78 Respiratory Rate 19 24 Blood Pressure 116/56 L 115/65 Pulse Oximetry 99 96 Fraction of Inspired Oxygen 30 Oxygen Delivery Method Room Air Oxygen Flow Rate 0 Narrative Exam Narrative: Jaundiced ill-appearing male sitting in a chair Lungs: Decreased breath sounds with scattered rhonchi Cardiac exam: Regular rate and rhythm normal S1-S2 Abdomen: Soft nontender without hepatosplenomegaly Extremities: Trace edema bilaterally Skin: Multiple ecchymoses on the upper and lower extremity Objective Labs Result Diagrams: 12/19/20 05:11 12/19/20 05:11 Labs: Laboratory Results - last 24 hr 12/19/20 12/19/20 12/19/20 05:11 05:11 05:11 WBC 7.1 RBC 2.90 L Hgb 9.8 L Hct 28.6 L MCV 98.6 MCH 33.8 MCHC 34.2 RDW 16.0 H Plt Count 64 L Neut % (Auto) 74.4 Lymph % (Auto) 6.4 L [place] % (Auto) 14.9 H Eos % (Auto) 3.5 Baso % (Auto) 0.8 Neut # (Auto) 5300 Lymph # (Auto) 500 L [place] # (Auto) 1100 H Eos # (Auto) 200 Baso # (Auto) 100 Sodium 138 Potassium 4.2 Chloride 111 H Carbon Dioxide 25 BUN 36 H Creatinine 0.95 Estimated GFR > 60.0 BUN/Creatinine Ratio 37.9 H Glucose 143 H Calcium 8.6 Magnesium 2.4 H Total Bilirubin 3.7 H 3.6 H Conjugated Bilirubin 0.0 Unconjugated Bilirubin 2.4 H AST 55 52 ALT 29 29 Alkaline Phosphatase 148 H 150 H Total Protein 6.3 6.2 L Albumin 2.4 L 2.4 L Globulin 3.9 3.8 Albumin/Globulin Ratio 0.6 L 0.6 L SARS-CoV-2 (PCR) 12/19/20 12:40 WBC RBC Hgb Hct MCV MCH MCHC RDW Plt Count Neut % (Auto) Lymph % (Auto) [place] % (Auto) Eos % (Auto) Baso % (Auto) Neut # (Auto) Lymph # (Auto) [place] # (Auto) Eos # (Auto) Baso # (Auto) Sodium Potassium Chloride Carbon Dioxide BUN Creatinine Estimated GFR BUN/Creatinine Ratio Glucose Calcium Magnesium Total Bilirubin Conjugated Bilirubin Unconjugated Bilirubin AST ALT Alkaline Phosphatase Total Protein Albumin Globulin Albumin/Globulin Ratio SARS-CoV-2 (PCR) Negative PFSH Medical History (Updated 12/14/20 @ 00:39 by Jeannie Yu, [facility]) Anasarca Ascites Asthma Elevated brain natriuretic peptide (BNP) level Hepatitis C Hypertension Liver cancer Liver cirrhosis Surgical History History of surgery of liver Family History Father Trauma Mother Sjogrens syndrome Sister No significant medical problems Social History household members: spouse Smoking Status: Former smoker alcohol intake: former Discharge Assessment & Plan Assessment and Plan Assessment: 1. Acute hepatic encephalopathy, present on admission 2. 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 Hepatocellular carcinoma 4. Ascites 5. Acute kidney injury, present on admission, now resolved 6. Asthma 7. Anemia Plan of Treatment: Discharge to retirement for ongoing rehabilitation Medications as prescribed Discharge Plan Discharge Plan Patient Disposition: SNF Transfer to: [facility] Consult as needed: Dental, Hearing, Mental health, Podiatry and Vision Discharge orders & Medications Prescriptions: New lactulose 20 gram/30 mL Solution 40 gm PO BID Qty: 30 RF: 0 Continued albuterol sulfate 90 mcg/actuation aerosol powdr breath activated 2 inhalation INHALATION Q4-6H PRN (Reason: shortness of breath or wheezing) Qty: 1 RF: 6 spironolactone 50 mg tablet 100 mg PO DAILY RF: 0 bumetanide 2 mg Tablet 2 mg PO DAILY RF: 0 calcium carbonate 500 mg calcium (1,250 mg) Tablet,Chewable 500 mg PO DAILY PRN (Reason: (Drug) Ingestion) RF: 0 diclofenac sodium [Voltaren] 1 % Gel 1 ea topical QID PRN (Reason: pain (scale score 1-3)) 30 Days Qty: 100 RF: 0 Discontinued lactulose 20 gram/30 mL Solution 20 g PO BID 30 Days Qty: 1800 RF: 0 Follow up/Referrals: Pancho Payan MD [Primary Care Provider] - Discharge Health Status Multidrug resistant organism: No MDRO Diet/Activity/Treatments Diet: Diet as Tolerated Liquid consistency: [place] Consistency Food texture: Blenderized or pureed Special Rehabilitation Services Rehab type: Physical therapy, Occupational therapy and Speech therapy Discharge Data Primary Care Provider: Pancho Payan
--- NOTE | 2020-12-19 17:20 | DIET.PN ---
Dietary Progress Note 65y M c CKD3 and hep C liver cirrhosis admitted for hepatic encephalopathy c agitation requiring intubation for imaging studies slow to metabolize sedation requiring dysphagia advanced and nectar thick liquids. Pt KUB showing fecal impaction c moderate stool load in colon scheduled for lactulose enema this evening. Pt not tolerating TF found to have >300cc residuals yesterday so TF paused. Recc restarting TF at trophic rate 10mL/h after enema to preserve gut function and increase as tolerated per original reccs below. Pts lactate WNL and MAP >80. HT: 180.3cm WT: 114.7kg wt stable since admit UBW: 125kg BMI: 35.3 Labs:hgb 9.8 L, Mg 2.4 H, TBili 3.6 H, alk phos 150 H Nutrition Diagnosis: inadequate protein energy intake r/t altered mentation aeb pt has liver cirrhosis and has prolonged clearing of sedation limiting ability for PO post extubation. Interventions: 1. Recc nectar thick ONS Ensure Enlive for each meal where PO <75%. Diet Order: Dysphagia Advanced c nectar liquids EER: 1700kcal (20kcal/kg per obese), 80gPRO (0.9g/kg) Monitoring/Evaluations: POs, diet advancement
--- NOTE | 2020-12-19 17:42 | PC.NURSE ---
Discharge Note Patient A&Ox2, VSS, RA 96% RA. No complaints of pain or discomfort. Midline discontinued per written order w/o incident. Report called in to [facility], all questions/concerns answered. Report given to S transport, all questions/concerns answered. All belongings packed. Transport packet given to S along with patient belongings. This RN assisted BLS to transfer patient to stretcher. Patient taken via stretcher by S for transport to [facility].
== END 2020-12-19 16:45 | DRG 442 ==
LOC: ED 16:35 → AC 16:40 → ICU 12-11 07:50
PROVIDERS: Internal Medicine; Nurse Practitioner Family; Admitting Provider Internal Medicine; Emergency Provider Emergency Medicine; PCP Internal Medicine; Referring Provider Emergency Medicine; Visit Provider Internal Medicine
DX: K72.00 Acute and subacute hepatic failure without coma (principal); N17.9 Acute kidney failure, unspecified; R18.8 Other ascites; E86.0 Dehydration; K74.4 Secondary biliary cirrhosis; B18.2 Chronic viral hepatitis C; I12.9 Hypertensive chronic kidney disease with stage 1 through stage 4 chronic kidney disease, or unspecified chronic kidney disease; N18.30 Chronic kidney disease, stage 3 unspecified; D35.02 Benign neoplasm of left adrenal gland; R79.89 Other specified abnormal findings of blood chemistry; J45.909 Unspecified asthma, uncomplicated; Z85.05 Personal history of malignant neoplasm of liver; Z87.891 Personal history of nicotine dependence; Z20.822 Contact with and (suspected) exposure to COVID-19
CPT/HCPCS: 36415; 36592; 36600; 70450; 71045; 71250; 74018; 74176; 80048; 80053; 80076; 80305; 80320; 80329; 81001; 82140; 82550; 82553; 82805; 82962; 83605; 83735; 84100; 84146; 84443; 84484; 85025; 85610; 85730; 87040; 87635; 87797; 92526; 92610; 93005; 94002; 94003; 94010; 94640; 94799; 96372; 96374; 97162; 97167; 97530; 99283; 99291; 99292; C9803; C9113; G0480; J0330; J1200; J1630; J2060; J2270; J2543; J2704; J3010

== ENCOUNTER 2021-01-12 15:08 | Inpatient (IN) | payer MEDICARE, MEDICAID, SELFPAY ==
[2020-12-10 18:32] VITALS: BMI 35.0
[2020-12-16 10:24] VITALS: RESP 12
[2020-12-16 10:41] VITALS: PULSE 72; RESP 13; O2SAT 97
[2021-01-12] VITALS (9 sets, daily range): BP systolic 101–163; BP diastolic 50–76; PULSE 82–118; RESP 17–28; TEMP 36.1; O2SAT 95–99; BMI 39.7
--- NOTE | 2021-01-12 15:14 | DI.RAD.S_ITS ---
PROCEDURE: XR CHEST 1V INDICATIONS: altered mental status TECHNIQUE: One view of the chest was acquired. COMPARISON: [facility], CR, XR CHEST 1V, 12/14/2020, 12:22. FINDINGS: Surgical changes and devices: Surgical clips in the right upper abdominal quadrant. Lungs and pleura: Lungs are clear. No focal consolidation. No pleural effusions or pneumothorax. Mediastinum: Pulmonary vascular congestion. Mild enlargement of the cardiac silhouette. Bones and chest wall: No suspicious bony lesions. Overlying soft tissues appear unremarkable. IMPRESSION: Mild cardiomegaly and pulmonary vascular congestion. Dictated by: Thanh Wilson M.D. on 01/12/2021 at 14:47 Approved by: Thanh Wilson M.D. on 01/12/2021 at 14:52
--- NOTE | 2021-01-12 15:14 | DI.CT.S_ITS ---
PROCEDURE: CT HEAD/BRAIN WO CON INDICATIONS: Altered mental status TECHNIQUE: Noncontrast 4.5 mm thick angled axial sections acquired from the foramen magnum to the vertex, with coronal and sagittal reformats. For radiation dose reduction, the following was used: automated exposure control, adjustment of mA and/or kV according to patient size. COMPARISON: [facility], CT, CT HEAD/BRAIN WO CON, 12/10/2020, 15:13. FINDINGS: Image quality: Excellent. CSF spaces: Basal cisterns are patent. No extra-axial fluid collections. Ventricles are normal in size and shape. Brain: No midline shift. No intracranial masses or hemorrhage. [place]-white matter interface is normal. Vascular calcification of the internal carotid arteries. Skull and face: Calvarium and visualized facial bones are intact, without suspicious lesions. Sinuses: Visualized sinuses and mastoids are clear. IMPRESSION: No acute intracranial abnormality. Dictated by: Thanh Wilson M.D. on 01/12/2021 at 14:54 Approved by: Thanh Wilson M.D. on 01/12/2021 at 14:58
[2021-01-12] MEDS: SODIUM CHLORIDE 0.9% 1,000 ML 150 ML IV (15:20)
--- NOTE | 2021-01-12 15:23 | ED_ITS ---
HPI - Altered Mental Status General Chief Complaint: Altered Mental Status Stated Complaint: Altered mental status & Jandice Time Seen by Provider: 01/12/21 15:13 Source: family and EMS Limitations: altered mental status History of Present Illness HPI narrative: Patient is a 65-year-old male who has a history of hepatic encephalopathy cirrhosis hepatitis C liver failure noncompliance presenting today with altered mental status. EMS reports that he was doing well yesterday and ambulating and today he is very somnolent but does respond to voice and pain. Discharged from the hospital 12/19/2020 after being intubated for hepatic encephalopathy. Unknown if patient has had any fever or chills he is unable to answer questions or follow commands but he does open his eyes to voice and respond well to pain. MD complaint: altered mental status and confusion Related Data Home Medications Medication Instructions Recorded Confirmed spironolactone 100 mg PO DAILY 04/15/20 12/10/20 bumetanide 2 mg PO DAILY 11/22/20 12/10/20 calcium carbonate 500 mg PO DAILY PRN 11/23/20 12/11/20 Previous Rx's Medication Instructions Recorded albuterol sulfate 90 mcg/actuation 2 inhalation INHALATION Q4-6H PRN 01/23/20 breath activated powder inhaler #1 each lactulose 40 gm PO BID #30 ml 12/19/20 Allergies Allergy/AdvReac Type Severity Reaction Status Date / Time No Known Drug Allergies Allergy Verified 01/12/21 15:28 Review of Systems Review of Systems ROS Unobtainable: Unobtainable due to medical condition Patient History Medical History Anasarca Ascites Asthma Elevated brain natriuretic peptide (BNP) level Hepatitis C Hypertension Liver cancer Liver cirrhosis Surgical History History of surgery of liver Family History Father Trauma Mother Sjogrens syndrome Sister No significant medical problems Social History household members: spouse Smoking Status: Former smoker alcohol intake: former Smoking Status: Former smoker alcohol intake frequency: 0-2 drinks per day Substance Use Type: marijuana Exam Initial Vital Signs Initial Vital Signs: Vital Signs Temperature 97 F L 01/12/21 15:28 Pulse Rate 82 01/12/21 15:28 Respiratory Rate 22 01/12/21 15:28 Blood Pressure 122/59 L 01/12/21 15:28 Pulse Oximetry 97 01/12/21 15:28 Gen.: Confused male responsive to voice and pain, BMI >40 HEENT: Slightly jaundiced, head is atraumatic, EOMI, SEAN Neck: No JVD Lungs: Clear bilaterally Cardiac: Regular rate and rhythm S1-S2 no murmurs Abdomen: Non tender no guarding no rebound no obvious fluid wave it difficult to assess due to body habitus Extremities: Moving all extremities gross bony deformity peripheral pulses intact Neurologic: Scores GCS Ricardo coma scale eye opening: To sound Piru coma scale verbal response: Confused Ricardo coma scale motor response: Localising Ricardo coma scale total score: 12 Course Orders Ordered: ED Orders 01/12/21 15:13 Arterial Blood Gas Stat Blood Culture Stat EKG-12 Lead Stat 01/12/21 15:14 CT head/brain wo con Stat XR chest 1V Stat 01/12/21 15:21 Acetaminophen Stat Ammonia (NH3) Stat Complete Blood Count AUTO DIFF Stat Comprehensive Metabolic Panel Stat Ethanol (ETOH) Stat Lactate (Lactic Acid) Stat Partial Thromboplastin Time Stat Procalcitonin Stat Prothrombin Time INR Stat Salicylate Stat Thyroid Stimulating Hormone Stat Troponin & CK Cardiac Panel Stat 01/12/21 15:35 COVID19 - ADMIT (LETTERER swab/PCR) Stat 01/12/21 15:51 Urinalysis and Microscopic Stat Urine Culture Stat Urine Drug Screen, Rapid Stat 01/12/21 16:01 NT-proBNP (BNP-Adult 18+) Stat Sodium Chloride (Normal Saline 0.9%) 1,000 mls @ 150 mls/hr IV CONT TIERNEY Last Infusion: 01/12/21 16:56 Dose: 0 mls/hr Documented by: Discontinued Medications Lactulose (Lactulose 20 Gm/30 Ml Solution) 20 gm WA NOW ONE Stop: 01/12/21 16:01 Last Admin: 01/12/21 16:56 Dose: Not Given Documented by: Lactulose (Lactulose 20 Gm/30 Ml Solution) 20 gm PO NOW ONE Stop: 01/12/21 16:01 Last Admin: 01/12/21 16:56 Dose: 20 gm Documented by: Vital Signs Vital signs: Vital Signs - 8 hr 01/12/21 15:28 01/12/21 15:51 01/12/21 16:00 Temperature 97 F L Pulse Rate 82 84 86 Respiratory Rate 22 18 17 Blood Pressure 122/59 L 138/65 Pulse Oximetry 97 97 98 MDM - Altered Mental Status Lab Data Attestation: I reviewed the patient's lab results. Result diagrams: 01/12/21 15:21 01/12/21 15:21 Labs: Lab Results 01/12/21 01/12/21 01/12/21 Range/Units 15:21 15:21 15:21 WBC 7.4 (4.5-11.0) X10^3/uL RBC 3.35 L (4.5-5.9) X10^6/uL Hgb 11.2 L (13.5-17.5) g/dL Hct 32.7 L (41-53) % MCV 97.5 (80-100) fL MCH 33.3 (26-34) PG MCHC 34.1 (30-36) % RDW 15.6 H (11.6-14.8) % Plt Count 78 L (150-400) X10^3/uL Neut % (Auto) 84.0 H (50-75) % Lymph % (Auto) 4.9 L (25-40) % Newton % (Auto) 10.4 (3-14) % Eos % (Auto) 0.2 L (2-4) % Baso % (Auto) 0.5 (0-2) % Neut # (Auto) 6200 (0988-3485) /uL Lymph # (Auto) 400 L (4044-7008) /uL Newton # (Auto) 800 (0-900) /uL Eos # (Auto) 0 (0-450) /uL Baso # (Auto) 0 (0-100) /uL PT 15.3 H (10.1-12.7) SECONDS INR 1.3 (0.9-1.3) APTT 35 (26.4-36.2) SECONDS Sodium 128 L (137-145) mmol/L Potassium 5.0 (3.4-5.1) mmol/L Chloride 94 L (98-107) mmol/L Carbon Dioxide 28 (22-32) mmol/L BUN 36 H (9-20) mg/dL Creatinine 1.37 H (0.66-1.25) mg/dL Estimated GFR 52.5 L (>60) mL/min BUN/Creatinine Ratio 26.3 H (6-22) Glucose 180 H (80-110) mg/dL Lactate (0.7-2.1) mmol/L Calcium 9.2 (8.4-10.2) mg/dL Total Bilirubin 2.5 H (0.2-1.3) mg/dL AST 71 H (17-59) IU/L ALT 43 (<50) IU/L Alkaline Phosphatase 211 H (38-126) U/L Ammonia (9-30) umol/L Total Creatine Kinase 45 L (55-170) U/L CK-MB (CK-2) TNP CK-MB (CK-2) Rel Index TNP Troponin I < 0.012 (0.01-0.034) ng/mL NT-Pro-B Natriuret Pep (<125) pg/mL Total Protein 7.3 (6.3-8.2) g/dL Albumin 3.0 L (3.5-5.0) g/dL Globulin 4.3 H (1.7-4.1) g/dL Albumin/Globulin Ratio 0.7 L (1.0-2.8) Procalcitonin 0.15 (<0.5) ng/mL TSH (0.47-4.68) uIU/mL Urine Color Urine Appearance Urine pH (4.5-8.0) Ur Specific [place] (1.000-1.035) Urine Protein (Negative) Urine Glucose (UA) (Negative) g/dL Urine Ketones (NEGATIVE) Urine Occult Blood (Negative) Urine Nitrate (Negative) Urine Bilirubin (NEGATIVE) Urine Urobilinogen (0.2) E.U./dL Ur Leukocyte Esterase (NEGATIVE) Urine RBC (0-5/HPF) Urine WBC (0-5/HPF) Urine Bacteria (None) Ur Culture Indicated? Salicylates < 1.0 (<20) mg/dL U Opiates 300ng/mL cut (Negative) Ur Oxycodone Screen (Negative) Urine Methadone Screen (Negative) Acetaminophen < 10 L (10-30) ug/mL Ur Barbiturates Screen (Negative) U Tricyclic Antidepress (Negative) Ur Phencyclidine Scrn (Negative) Ur Amphetamines Screen (Negative) U Methamphetamines Scrn (Negative) Ur MDMA Scrn (Ecstasy) (Negative) U Benzodiazepines Scrn (Negative) Urine Cocaine Screen (Negative) U Marijuana (THC) Screen (Negative) Ethyl Alcohol < 10 ( - 10) mg/dL SARS-CoV-2 (PCR) (Negative) 01/12/21 01/12/21 01/12/21 Range/Units 15:21 15:21 15:21 WBC (4.5-11.0) X10^3/uL RBC (4.5-5.9) X10^6/uL Hgb (13.5-17.5) g/dL Hct (41-53) % MCV (80-100) fL MCH (26-34) PG MCHC (30-36) % RDW (11.6-14.8) % Plt Count (150-400) X10^3/uL Neut % (Auto) (50-75) % Lymph % (Auto) (25-40) % Newton % (Auto) (3-14) % Eos % (Auto) (2-4) % Baso % (Auto) (0-2) % Neut # (Auto) (6844-9231) /uL Lymph # (Auto) (3584-2651) /uL Newton # (Auto) (0-900) /uL Eos # (Auto) (0-450) /uL Baso # (Auto) (0-100) /uL PT (10.1-12.7) SECONDS INR (0.9-1.3) APTT (26.4-36.2) SECONDS Sodium (137-145) mmol/L Potassium (3.4-5.1) mmol/L Chloride (98-107) mmol/L Carbon Dioxide (22-32) mmol/L BUN (9-20) mg/dL Creatinine (0.66-1.25) mg/dL Estimated GFR (>60) mL/min BUN/Creatinine Ratio (6-22) Glucose (80-110) mg/dL Lactate 3.7 H (0.7-2.1) mmol/L Calcium (8.4-10.2) mg/dL Total Bilirubin (0.2-1.3) mg/dL AST (17-59) IU/L ALT (<50) IU/L Alkaline Phosphatase (38-126) U/L Ammonia 306 H (9-30) umol/L Total Creatine Kinase (55-170) U/L CK-MB (CK-2) CK-MB (CK-2) Rel Index Troponin I (0.01-0.034) ng/mL NT-Pro-B Natriuret Pep (<125) pg/mL Total Protein (6.3-8.2) g/dL Albumin (3.5-5.0) g/dL Globulin (1.7-4.1) g/dL Albumin/Globulin Ratio (1.0-2.8) Procalcitonin (<0.5) ng/mL TSH 1.34 (0.47-4.68) uIU/mL Urine Color Urine Appearance Urine pH (4.5-8.0) Ur Specific [place] (1.000-1.035) Urine Protein (Negative) Urine Glucose (UA) (Negative) g/dL Urine Ketones (NEGATIVE) Urine Occult Blood (Negative) Urine Nitrate (Negative) Urine Bilirubin (NEGATIVE) Urine Urobilinogen (0.2) E.U./dL Ur Leukocyte Esterase (NEGATIVE) Urine RBC (0-5/HPF) Urine WBC (0-5/HPF) Urine Bacteria (None) Ur Culture Indicated? Salicylates (<20) mg/dL U Opiates 300ng/mL cut (Negative) Ur Oxycodone Screen (Negative) Urine Methadone Screen (Negative) Acetaminophen (10-30) ug/mL Ur Barbiturates Screen (Negative) U Tricyclic Antidepress (Negative) Ur Phencyclidine Scrn (Negative) Ur Amphetamines Screen (Negative) U Methamphetamines Scrn (Negative) Ur MDMA Scrn (Ecstasy) (Negative) U Benzodiazepines Scrn (Negative) Urine Cocaine Screen (Negative) U Marijuana (THC) Screen (Negative) Ethyl Alcohol ( - 10) mg/dL SARS-CoV-2 (PCR) (Negative) 01/12/21 01/12/21 01/12/21 Range/Units 15:21 15:35 15:51 WBC (4.5-11.0) X10^3/uL RBC (4.5-5.9) X10^6/uL Hgb (13.5-17.5) g/dL Hct (41-53) % MCV (80-100) fL MCH (26-34) PG MCHC (30-36) % RDW (11.6-14.8) % Plt Count (150-400) X10^3/uL Neut % (Auto) (50-75) % Lymph % (Auto) (25-40) % Newton % (Auto) (3-14) % Eos % (Auto) (2-4) % Baso % (Auto) (0-2) % Neut # (Auto) (3791-1956) /uL Lymph # (Auto) (1667-6894) /uL Newton # (Auto) (0-900) /uL Eos # (Auto) (0-450) /uL Baso # (Auto) (0-100) /uL PT (10.1-12.7) SECONDS INR (0.9-1.3) APTT (26.4-36.2) SECONDS Sodium (137-145) mmol/L Potassium (3.4-5.1) mmol/L Chloride (98-107) mmol/L Carbon Dioxide (22-32) mmol/L BUN (9-20) mg/dL Creatinine (0.66-1.25) mg/dL Estimated GFR (>60) mL/min BUN/Creatinine Ratio (6-22) Glucose (80-110) mg/dL Lactate (0.7-2.1) mmol/L Calcium (8.4-10.2) mg/dL Total Bilirubin (0.2-1.3) mg/dL AST (17-59) IU/L ALT (<50) IU/L Alkaline Phosphatase (38-126) U/L Ammonia (9-30) umol/L Total Creatine Kinase (55-170) U/L CK-MB (CK-2) CK-MB (CK-2) Rel Index Troponin I (0.01-0.034) ng/mL NT-Pro-B Natriuret Pep 318 H (<125) pg/mL Total Protein (6.3-8.2) g/dL Albumin (3.5-5.0) g/dL Globulin (1.7-4.1) g/dL Albumin/Globulin Ratio (1.0-2.8) Procalcitonin (<0.5) ng/mL TSH (0.47-4.68) uIU/mL Urine Color Urine Appearance Urine pH (4.5-8.0) Ur Specific [place] (1.000-1.035) Urine Protein (Negative) Urine Glucose (UA) (Negative) g/dL Urine Ketones (NEGATIVE) Urine Occult Blood (Negative) Urine Nitrate (Negative) Urine Bilirubin (NEGATIVE) Urine Urobilinogen (0.2) E.U./dL Ur Leukocyte Esterase (NEGATIVE) Urine RBC (0-5/HPF) Urine WBC (0-5/HPF) Urine Bacteria (None) Ur Culture Indicated? Salicylates (<20) mg/dL U Opiates 300ng/mL cut Negative (Negative) Ur Oxycodone Screen Negative (Negative) Urine Methadone Screen Negative (Negative) Acetaminophen (10-30) ug/mL Ur Barbiturates Screen Negative (Negative) U Tricyclic Antidepress Positive H (Negative) Ur Phencyclidine Scrn Negative (Negative) Ur Amphetamines Screen Negative (Negative) U Methamphetamines Scrn Negative (Negative) Ur MDMA Scrn (Ecstasy) Negative (Negative) U Benzodiazepines Scrn Positive H (Negative) Urine Cocaine Screen Negative (Negative) U Marijuana (THC) Screen Positive H (Negative) Ethyl Alcohol ( - 10) mg/dL SARS-CoV-2 (PCR) Negative (Negative) 01/12/21 Range/Units 15:51 WBC (4.5-11.0) X10^3/uL RBC (4.5-5.9) X10^6/uL Hgb (13.5-17.5) g/dL Hct (41-53) % MCV (80-100) fL MCH (26-34) PG MCHC (30-36) % RDW (11.6-14.8) % Plt Count (150-400) X10^3/uL Neut % (Auto) (50-75) % Lymph % (Auto) (25-40) % Newton % (Auto) (3-14) % Eos % (Auto) (2-4) % Baso % (Auto) (0-2) % Neut # (Auto) (5604-5486) /uL Lymph # (Auto) (5602-8920) /uL Newton # (Auto) (0-900) /uL Eos # (Auto) (0-450) /uL Baso # (Auto) (0-100) /uL PT (10.1-12.7) SECONDS INR (0.9-1.3) APTT (26.4-36.2) SECONDS Sodium (137-145) mmol/L Potassium (3.4-5.1) mmol/L Chloride (98-107) mmol/L Carbon Dioxide (22-32) mmol/L BUN (9-20) mg/dL Creatinine (0.66-1.25) mg/dL Estimated GFR (>60) mL/min BUN/Creatinine Ratio (6-22) Glucose (80-110) mg/dL Lactate (0.7-2.1) mmol/L Calcium (8.4-10.2) mg/dL Total Bilirubin (0.2-1.3) mg/dL AST (17-59) IU/L ALT (<50) IU/L Alkaline Phosphatase (38-126) U/L Ammonia (9-30) umol/L Total Creatine Kinase (55-170) U/L CK-MB (CK-2) CK-MB (CK-2) Rel Index Troponin I (0.01-0.034) ng/mL NT-Pro-B Natriuret Pep (<125) pg/mL Total Protein (6.3-8.2) g/dL Albumin (3.5-5.0) g/dL Globulin (1.7-4.1) g/dL Albumin/Globulin Ratio (1.0-2.8) Procalcitonin (<0.5) ng/mL TSH (0.47-4.68) uIU/mL Urine Color Yellow Urine Appearance Cloudy Urine pH 6.5 (4.5-8.0) Ur Specific [place] 1.015 (1.000-1.035) Urine Protein Trace H (Negative) Urine Glucose (UA) Negative (Negative) g/dL Urine Ketones Negative (NEGATIVE) Urine Occult Blood 3+ H (Negative) Urine Nitrate Negative (Negative) Urine Bilirubin Negative (NEGATIVE) Urine Urobilinogen 1.0 (0.2) E.U./dL Ur Leukocyte Esterase Negative (NEGATIVE) Urine RBC 10-30/hpf H (0-5/HPF) Urine WBC 10-30/hpf H (0-5/HPF) Urine Bacteria Many (>30) H (None) Ur Culture Indicated? Specimen cultured Salicylates (<20) mg/dL U Opiates 300ng/mL cut (Negative) Ur Oxycodone Screen (Negative) Urine Methadone Screen (Negative) Acetaminophen (10-30) ug/mL Ur Barbiturates Screen (Negative) U Tricyclic Antidepress (Negative) Ur Phencyclidine Scrn (Negative) Ur Amphetamines Screen (Negative) U Methamphetamines Scrn (Negative) Ur MDMA Scrn (Ecstasy) (Negative) U Benzodiazepines Scrn (Negative) Urine Cocaine Screen (Negative) U Marijuana (THC) Screen (Negative) Ethyl Alcohol ( - 10) mg/dL SARS-CoV-2 (PCR) (Negative) Imaging Data CT scan - head: Radiologist's Impression: PROCEDURE: CT HEAD/BRAIN WO CON INDICATIONS: Altered mental status TECHNIQUE: Noncontrast 4.5 mm thick angled axial sections acquired from the foramen magnum to the vertex, with coronal and sagittal reformats. For radiation dose reduction, the following was used: automated exposure control, adjustment of mA and/or kV according to patient size. COMPARISON: [facility], CT, CT HEAD/BRAIN WO CON, 12/10/2020, 15:13. FINDINGS: Image quality: Excellent. CSF spaces: Basal cisterns are patent. No extra-axial fluid collections. Ventricles are normal in size and shape. Brain: No midline shift. No intracranial masses or hemorrhage. [place]ill[place]-white matter interface is normal. Vascular calcification of the internal carotid arteries. Skull and face: Calvarium and visualized facial bones are intact, without suspicious lesions. Sinuses: Visualized sinuses and mastoids are clear. IMPRESSION: No acute intracranial abnormality. Dictated by: Thanh Wilson M.D. on 01/12/2021 at 14:54 Chest x-ray: Radiologist's Impression: PROCEDURE: XR CHEST 1V INDICATIONS: NG tube verification TECHNIQUE: One view of the chest was acquired. COMPARISON: [facility], CR, XR CHEST 1V, 01/12/2021, 15:20. FINDINGS: Surgical changes and devices: Enteric tube is present with tip projecting over the expected location of the stomach. Lungs and pleura: Lungs are clear. No pleural effusions or pneumothorax. Mediastinum: Mediastinal contours appear normal. Heart size is unchanged. Bones and chest wall: No suspicious bony lesions. Overlying soft tissues appear unremarkable. IMPRESSION: Enteric tube tip projects over the expected location of the stomach. Dictated by: Thanh Wilson M.D. on 01/12/2021 at 15:40 ECG Data Attestation: I personally reviewed and interpreted this ECG as follows: Prior ECG tracings: available for review Interpretation: Normal sinus rhythm rate 90 wound here interval was 68 previous CVAs [address] changes low voltage similar to prior EKGs although it actually looks improved from previous MDM Narrative Medical decision making narrative: Patient is found to again have hepatic encephalopathy with ammonia level greater than 300. At this time he does not require intubation he is protecting his airway he has a positive gag reflex, and GCS of 12 does not need intubation criteria. NG was placed because he is unable to swallow safely. Sodium slightly low at 128 it was previously normal glucose is 180 creatinine slightly elevated today at 1.3 bilirubin 2.5 previously 3.6. Patient is likely non compliant with his lactulose he apparently has a history of this. I have attempted to call and I left a message. Dr. Bolaños update on patient symptoms and test results, he is quite familiar with the patient and is in the ED to see and evaluate patient Discharge Plan Departure Patient Disposition: Admitted As Inpatient Clinical Impression: Acute hepatic encephalopathy Admit Date/Time: 01/12/21 16:18 Admit Provider: Wero Bolaños
[2021-01-12 15:43] LABS: Add Manual Diff / Slide Review NO; Basophils Absolute Auto 0 /uL (0-100); Basophils Percent Auto 0.5 % (0-2); Eosinophils Absolute Auto 0 /uL (0-450); Eosinophils Percent Auto 0.2 % (2-4); Hematocrit 32.7 % (41-53); Hemoglobin 11.2 g/dL (13.5-17.5); Lymphocytes Absolute Auto 400 /uL (1100-4500); Lymphocytes Percent Auto 4.9 % (25-40); Mean Corpuscular HGB Conc 34.1 % (30-36); Mean Corpuscular Hemoglobin 33.3 PG (26-34); Mean Corpuscular Volume 97.5 fL (80-100); Monocytes Absolute Auto 800 /uL (0-900); Monocytes Percent Auto 10.4 % (3-14); Neutrophils Absolute Auto 6200 /uL (1500-7000); Platelet Count 78 X10^3/uL (150-400); Red Blood Cell Count 3.35 X10^6/uL (4.5-5.9); Red Cell Distribution Width 15.6 % (11.6-14.8); White Blood Cell Count 7.4 X10^3/uL (4.5-11.0)
[2021-01-12 15:46] LABS: INR 1.3 (0.9-1.3); Prothrombin Time 15.3 SECONDS (10.1-12.7)
[2021-01-12 15:49] LABS: PTT Partial Thromboplastin Tim 35 SECONDS (26.4-36.2)
[2021-01-12 15:51] LABS: Acetaminophen < 10 ug/mL (10-30); Alanine Aminotransferase 43 IU/L (<50); Albumin Globulin Ratio 0.7 (1.0-2.8); Alkaline Phosphatase 211 U/L (38-126); Ammonia (NH3) 306 umol/L (9-30); Aspartate Aminotransferase 71 IU/L (17-59); BUN Creatinine Ratio 26.3 (6-22); Bilirubin Total 2.5 mg/dL (0.2-1.3); Blood Urea Nitrogen 36 mg/dL (9-20); Calcium 9.2 mg/dL (8.4-10.2); Carbon Dioxide 28 mmol/L (22-32); Chloride 94 mmol/L (98-107); Creatine Kinase 45 U/L (55-170); Estimated Glomerular Filt Rate 52.5 mL/min (>60); Ethanol (ETOH) < 10 mg/dL; Globulin 4.3 g/dL (1.7-4.1); Glucose 180 mg/dL (80-110); HEMOLYSIS < 15 (0-50); Lactate (Lactic Acid) 3.7 mmol/L (0.7-2.1); Salicylate < 1.0 mg/dL (<20); Sodium 128 mmol/L (137-145); Total Protein 7.3 g/dL (6.3-8.2)
[2021-01-12 16:00] LABS: UR Morphine/Opiate cutoff 300 Negative (Negative); Ur Creatinine Normal (Normal); Ur Specific Gravity Normal (Normal); Urine Amphetamines Negative (Negative); Urine Barbiturates Negative (Negative); Urine Benzodiazepines Positive (Negative); Urine Cocaine Negative (Negative); Urine MDMA Negative (Negative); Urine Methadone Negative (Negative); Urine Methamphetamines Negative (Negative); Urine Oxycodone Negative (Negative); Urine Phencyclidine Negative (Negative); Urine Tetrahydrocannabinol Positive (Negative); Urine Tricyclic Antidepressant Positive (Negative); Urine pH Normal (Normal)
[2021-01-12 16:02] LABS: Appearance Urine UA CLOUDY; Bilirubin Urine UA NEGATIVE (NEGATIVE); Color Urine UA YELLOW; Glucose Urine UA NEGATIVE (Negative); Ketones Urine UA NEGATIVE (NEGATIVE); Leukocyte Esterase Urine UA NEGATIVE (NEGATIVE); Nitrite Urine UA NEGATIVE (Negative); Occult Blood Urine UA 3+ (Negative); Protein Urine UA TRACE (Negative); Specific Gravity Urine UA 1.015 (1.000-1.035); pH Urine UA 6.5 (4.5-8.0)
[2021-01-12 16:02] LABS: Troponin I < 0.012 ng/mL (0.01-0.034)
[2021-01-12 16:06] LABS: Procalcitonin 0.15 ng/mL (<0.5)
[2021-01-12 16:09] LABS: Bacteria Urine Many (>30); Culture Indicated Urine Specimen Cultured; RBC Urine 10-30/HPF (0-5/HPF); WBC Urine 10-30/HPF (0-5/HPF)
--- NOTE | 2021-01-12 16:21 | DI.RAD.S_ITS ---
PROCEDURE: XR CHEST 1V INDICATIONS: NG tube verification TECHNIQUE: One view of the chest was acquired. COMPARISON: [facility], , XR CHEST 1V, 01/12/2021, 15:20. FINDINGS: Surgical changes and devices: Enteric tube is present with tip projecting over the expected location of the stomach. Lungs and pleura: Lungs are clear. No pleural effusions or pneumothorax. Mediastinum: Mediastinal contours appear normal. Heart size is unchanged. Bones and chest wall: No suspicious bony lesions. Overlying soft tissues appear unremarkable. IMPRESSION: Enteric tube tip projects over the expected location of the stomach. Dictated by: Thanh Wilson M.D. on 01/12/2021 at 15:40 Approved by: Thanh Wilson M.D. on 01/12/2021 at 15:43
[2021-01-12 16:31] LABS: Thyroid Stimulating Hormone 1.34 uIU/mL (0.47-4.68)
[2021-01-12 16:40] LABS: COVID19 - ADMIT (NP swab/PCR) Negative (Negative)
[2021-01-12 16:42] LABS: NT-proBNP (BNP-Adult 18+) 318 pg/mL (<125)
--- NOTE | 2021-01-12 16:44 | PM.HP.1 ---
History of Present Illness History of Present Illness Date Patient Seen: 01/12/21 Time Patient Seen: 16:58 Chief complaint: Altered mental status & Jandice Narrative: Patient is a 65-year-old male with chronic hep C cirrhosis, ascites, history of resection of hepatocellular carcinoma, chronic kidney disease, asthma sent to emergency department for acute confusion. He was recently discharged about a month ago for hepatic encephalopathy to a SNF. History is largely obtained from the ER provider and chart review as no further information is available at this time and patient is quite somnolent. According to EMS providers the patient was ambulatory and talkative yesterday, but today is very lethargic but responding to voice and pain. In the emergency room, the patient's vital signs were unremarkable, laboratory evaluation revealed no leukocytosis with a WBC of 7.4, hemoglobin of 11.2 up from his previous admission where he was around 9 and a platelet count of 78, also up from his previous admission. INR was 1.3. Chemistries revealed a sodium of 128, creatinine of 1.37 (baseline around 0.9), lactate of 3.7, T bili of 2.5 (improved), AST of 71, ALT of 43, ammonia level was 306. Troponin was negative. ProBNP was 318. TSH was unremarkable at 1.34. Procalcitonin was 0.15. Urinalysis revealed 10-30 rbc's, 10-30 wbc's and many bacteria and was sent for culture. Toxicology screening revealed no Tylenol level, no alcohol level, urine drug screen was positive for TCAs, benzodiazepines, and marijuana. COVID-[address] without contrast of his head was unremarkable. Chest x-ray was shows poor inspiratory volume and no focal infiltrates, with possible vascular congestion. NG tube was placed in the emergency room and patient was given lactulose after confirmation of placement with another chest x-ray. Patient History Medical History Anasarca Ascites Asthma Elevated brain natriuretic peptide (BNP) level Hepatitis C Hypertension Liver cancer Liver cirrhosis Surgical History History of surgery of liver Family & Social History Family History Father Trauma Mother Sjogrens syndrome Sister No significant medical problems Social History: household members spouse Tobacco & Substance use: Tobacco type cigarettes Smoking Status Former smoker alcohol intake former alcohol intake frequency 0-2 drinks per day Substance Use Type marijuana Meds Home Medications and Allergies Home Medications Medication Instructions Recorded Confirmed Type albuterol sulfate 90 mcg/actuation 2 inhalation INHALATION Q4-6H PRN 01/23/20 12/11/20 Rx breath activated powder inhaler #1 each spironolactone 100 mg PO DAILY 04/15/20 12/10/20 History bumetanide 2 mg PO DAILY 11/22/20 12/10/20 History calcium carbonate 500 mg PO DAILY PRN 11/23/20 12/11/20 History lactulose 40 gm PO BID #30 ml 12/19/20 Rx Allergies Allergy/AdvReac Type Severity Reaction Status Date / Time No Known Drug Allergies Allergy Verified 01/12/21 15:28 Review of Systems Review of Systems ROS: Yes unobtainable due to mental status Exam Vital Signs (past 8 hours): - 01/12/21 15:28 01/12/21 15:51 01/12/21 16:00 Temperature 97 F L Pulse Rate 82 84 86 Respiratory Rate 22 18 17 Blood Pressure 122/59 L 138/65 Pulse Oximetry 97 97 98 Oxygen Delivery Method Room Air Narrative Exam Narrative: GENERAL APPEARANCE: Chronically ill-appearing, obese male, NG tube in place GCS 9. SKIN: Inspection of the skin reveals no rashes, ulcerations or petechiae. HEENT: Normocephalic atraumatic, extraocular muscles are intact, oropharynx is clear and mucous membranes are dry. Breath smells of fetor hepaticus. NECK: Supple and symmetric. There was no thyroid enlargement, and no tenderness, or masses were felt. CHEST: Normal AP diameter and normal contour without any kyphoscoliosis. LUNGS: Auscultation of the lungs revealed diminished breath sounds bilaterally but no wheezing, rhonchi, or rales. CARDIOVASCULAR: There was a normal rate and regular rhythm without any murmurs, gallops, rubs. Peripheral pulses were 2+ and symmetric. ABDOMEN: Soft and nondistended, obese abdomen. MUSCULOSKELETAL: No obvious joint effusions or deformities. EXTREMITIES: No cyanosis, clubbing or edema. NEUROLOGIC: Somnolent, opens eyes to voice, localizes to pain, no vocal sounds, GCS 9. Objective ECG Impression: Normal sinus rhythm no significant ST or T wave changes indicative of ischemia. Imaging CT scan - head: Radiologist's impression: PROCEDURE: CT HEAD/BRAIN WO CON INDICATIONS: Altered mental status TECHNIQUE: Noncontrast 4.5 mm thick angled axial sections acquired from the foramen magnum to the vertex, with coronal and sagittal reformats. For radiation dose reduction, the following was used: automated exposure control, adjustment of mA and/or kV according to patient size. COMPARISON: [facility], CT, CT HEAD/BRAIN WO CON, 12/10/2020, 15:13. FINDINGS: Image quality: Excellent. CSF spaces: Basal cisterns are patent. No extra-axial fluid collections. Ventricles are normal in size and shape. Brain: No midline shift. No intracranial masses or hemorrhage. Bustillos-white matter interface is normal. Vascular calcification of the internal carotid arteries. Skull and face: Calvarium and visualized facial bones are intact, without suspicious lesions. Sinuses: Visualized sinuses and mastoids are clear. IMPRESSION: No acute intracranial abnormality. Chest x-ray: My impression: Low lung volumes with vascular congestion, poor quality film. Radiologist's impression: PROCEDURE: XR CHEST 1V INDICATIONS: altered mental status TECHNIQUE: One view of the chest was acquired. COMPARISON: [facility], CR, XR CHEST 1V, 12/14/2020, 12:22. FINDINGS: Surgical changes and devices: Surgical clips in the right upper abdominal quadrant. Lungs and pleura: Lungs are clear. No focal consolidation. No pleural effusions or pneumothorax. Mediastinum: Pulmonary vascular congestion. Mild enlargement of the cardiac silhouette. Bones and chest wall: No suspicious bony lesions. Overlying soft tissues appear unremarkable. IMPRESSION: Mild cardiomegaly and pulmonary vascular congestion. Labs Result Diagrams: 01/12/21 15:21 01/12/21 15:21 Labs: Laboratory Results - last 24 hr 01/12/21 01/12/21 01/12/21 15:21 15:21 15:21 WBC 7.4 RBC 3.35 L Hgb 11.2 L Hct 32.7 L MCV 97.5 MCH 33.3 MCHC 34.1 RDW 15.6 H Plt Count 78 L Neut % (Auto) 84.0 H Lymph % (Auto) 4.9 L Addison % (Auto) 10.4 Eos % (Auto) 0.2 L Baso % (Auto) 0.5 Neut # (Auto) 6200 Lymph # (Auto) 400 L Addison # (Auto) 800 Eos # (Auto) 0 Baso # (Auto) 0 PT 15.3 H INR 1.3 APTT 35 Sodium 128 L Potassium 5.0 Chloride 94 L Carbon Dioxide 28 BUN 36 H Creatinine 1.37 H Estimated GFR 52.5 L BUN/Creatinine Ratio 26.3 H Glucose 180 H Lactate Calcium 9.2 Total Bilirubin 2.5 H AST 71 H ALT 43 Alkaline Phosphatase 211 H Ammonia Total Creatine Kinase 45 L CK-MB (CK-2) TNP CK-MB (CK-2) Rel Index TNP Troponin I < 0.012 NT-Pro-B Natriuret Pep Total Protein 7.3 Albumin 3.0 L Globulin 4.3 H Albumin/Globulin Ratio 0.7 L Procalcitonin 0.15 TSH Urine Color Urine Appearance Urine pH Ur Specific [place] Urine Protein Urine Glucose (UA) Urine Ketones Urine Occult Blood Urine Nitrate Urine Bilirubin Urine Urobilinogen Ur Leukocyte Esterase Urine RBC Urine WBC Urine Bacteria Ur Culture Indicated? Salicylates < 1.0 U Opiates 300ng/mL cut Ur Oxycodone Screen Urine Methadone Screen Acetaminophen < 10 L Ur Barbiturates Screen U Tricyclic Antidepress Ur Phencyclidine Scrn Ur Amphetamines Screen U Methamphetamines Scrn Ur MDMA Scrn (Ecstasy) U Benzodiazepines Scrn Urine Cocaine Screen U Marijuana (THC) Screen Ethyl Alcohol < 10 SARS-CoV-2 (PCR) 01/12/21 01/12/21 01/12/21 15:21 15:21 15:21 WBC RBC Hgb Hct MCV MCH MCHC RDW Plt Count Neut % (Auto) Lymph % (Auto) Addison % (Auto) Eos % (Auto) Baso % (Auto) Neut # (Auto) Lymph # (Auto) Addison # (Auto) Eos # (Auto) Baso # (Auto) PT INR APTT Sodium Potassium Chloride Carbon Dioxide BUN Creatinine Estimated GFR BUN/Creatinine Ratio Glucose Lactate 3.7 H Calcium Total Bilirubin AST ALT Alkaline Phosphatase Ammonia 306 H Total Creatine Kinase CK-MB (CK-2) CK-MB (CK-2) Rel Index Troponin I NT-Pro-B Natriuret Pep Total Protein Albumin Globulin Albumin/Globulin Ratio Procalcitonin TSH 1.34 Urine Color Urine Appearance Urine pH Ur Specific [place] Urine Protein Urine Glucose (UA) Urine Ketones Urine Occult Blood Urine Nitrate Urine Bilirubin Urine Urobilinogen Ur Leukocyte Esterase Urine RBC Urine WBC Urine Bacteria Ur Culture Indicated? Salicylates U Opiates 300ng/mL cut Ur Oxycodone Screen Urine Methadone Screen Acetaminophen Ur Barbiturates Screen U Tricyclic Antidepress Ur Phencyclidine Scrn Ur Amphetamines Screen U Methamphetamines Scrn Ur MDMA Scrn (Ecstasy) U Benzodiazepines Scrn Urine Cocaine Screen U Marijuana (THC) Screen Ethyl Alcohol SARS-CoV-2 (PCR) 01/12/21 01/12/21 01/12/21 15:21 15:35 15:51 WBC RBC Hgb Hct MCV MCH MCHC RDW Plt Count Neut % (Auto) Lymph % (Auto) Addison % (Auto) Eos % (Auto) Baso % (Auto) Neut # (Auto) Lymph # (Auto) Addison # (Auto) Eos # (Auto) Baso # (Auto) PT INR APTT Sodium Potassium Chloride Carbon Dioxide BUN Creatinine Estimated GFR BUN/Creatinine Ratio Glucose Lactate Calcium Total Bilirubin AST ALT Alkaline Phosphatase Ammonia Total Creatine Kinase CK-MB (CK-2) CK-MB (CK-2) Rel Index Troponin I NT-Pro-B Natriuret Pep 318 H Total Protein Albumin Globulin Albumin/Globulin Ratio Procalcitonin TSH Urine Color Urine Appearance Urine pH Ur Specific [place] Urine Protein Urine Glucose (UA) Urine Ketones Urine Occult Blood Urine Nitrate Urine Bilirubin Urine Urobilinogen Ur Leukocyte Esterase Urine RBC Urine WBC Urine Bacteria Ur Culture Indicated? Salicylates U Opiates 300ng/mL cut Negative Ur Oxycodone Screen Negative Urine Methadone Screen Negative Acetaminophen Ur Barbiturates Screen Negative U Tricyclic Antidepress Positive H Ur Phencyclidine Scrn Negative Ur Amphetamines Screen Negative U Methamphetamines Scrn Negative Ur MDMA Scrn (Ecstasy) Negative U Benzodiazepines Scrn Positive H Urine Cocaine Screen Negative U Marijuana (THC) Screen Positive H Ethyl Alcohol SARS-CoV-2 (PCR) Negative 01/12/21 15:51 WBC RBC Hgb Hct MCV MCH MCHC RDW Plt Count Neut % (Auto) Lymph % (Auto) Addison % (Auto) Eos % (Auto) Baso % (Auto) Neut # (Auto) Lymph # (Auto) Addison # (Auto) Eos # (Auto) Baso # (Auto) PT INR APTT Sodium Potassium Chloride Carbon Dioxide BUN Creatinine Estimated GFR BUN/Creatinine Ratio Glucose Lactate Calcium Total Bilirubin AST ALT Alkaline Phosphatase Ammonia Total Creatine Kinase CK-MB (CK-2) CK-MB (CK-2) Rel Index Troponin I NT-Pro-B Natriuret Pep Total Protein Albumin Globulin Albumin/Globulin Ratio Procalcitonin TSH Urine Color Yellow Urine Appearance Cloudy Urine pH 6.5 Ur Specific [place] 1.015 Urine Protein Trace H Urine Glucose (UA) Negative Urine Ketones Negative Urine Occult Blood 3+ H Urine Nitrate Negative Urine Bilirubin Negative Urine Urobilinogen 1.0 Ur Leukocyte Esterase Negative Urine RBC 10-30/hpf H Urine WBC 10-30/hpf H Urine Bacteria Many (>30) H Ur Culture Indicated? Specimen cultured Salicylates U Opiates 300ng/mL cut Ur Oxycodone Screen Urine Methadone Screen Acetaminophen Ur Barbiturates Screen U Tricyclic Antidepress Ur Phencyclidine Scrn Ur Amphetamines Screen U Methamphetamines Scrn Ur MDMA Scrn (Ecstasy) U Benzodiazepines Scrn Urine Cocaine Screen U Marijuana (THC) Screen Ethyl Alcohol SARS-CoV-2 (PCR) Assessment & Plan Assessment & Plan narrative: Patient is a 65-year-old male with chronic hep C cirrhosis, ascites, history of resection of hepatocellular carcinoma, chronic kidney disease, asthma sent to emergency department for acute confusion. Admitted for hepatic encephalopathy. 1. Acute hepatic encephalopathy , present on admission -GCS of 9 on admission. no overt pathology identified CXR. Head CT also unremarkable. Ammonia level 308. Suspect he had stopped lactulose at home after being discharged from SNF. -no leukocytosis, abdominal ultrasound at bedside with too small fluid pocket in setting of morbid obesity for abdominal paracentesis on admission. -continue lactulose 40 g BID via NG tube until more alert. Titrate to between 3-5 BMs daily. -troponin within normal limits -consider rifaximin given compliance issues. -UA is positive with 10-30 WBC and 10-30 RBC, will start on ceftriaxone. 2. hepatitis-C cirrhosis - bilirubin has improved since previous admission. - suspect slightly dehydrated, will hold home diuretics. Too small of a pocket of ascites to tap as noted above. 3. LALITHA on Chronic kidney disease III - resolved - Cr 1.37 on admission, lowest value previously around 0.9 during prior admission. Continue IVF, hold diuretic 4. Elevated lactic acid, present on admission - continued rehydration until lactate <2. 5. Hyponatremia, acute, present on admission - mild at 128, suspect secondary to slight dehydration. Will continue NS as noted above and continue to monitor. 6. Acute cystitis, present on admission - UA with 10-30 WBC, RBC and many bacteria, sent for culture. Will start ceftriaxone. Code: Full, unable to discuss this admission but previously discussed two admissions ago. Surrogate decision maker is the patient's Spouse. Dispo: Admitted as inpatient as his stay is expected to exceed two midnights DVT: SCDs, hold chemical given thrombocytopenia. FEN/GI: NPO except meds via NG tube. IVF with NS @ 75 Scores GCS Henderson coma scale eye opening: To sound Ricardo coma scale verbal response: None Ricardo coma scale motor response: Localising Henderson coma scale total score: 9
[2021-01-12] MEDS: LACTULOSE 20 GM/30 ML SOLUTION PO (16:56)
[2021-01-12 17:30] LABS: Reflexed Lactate in 2 Hours Y
[2021-01-12] MEDS: SODIUM CHLORIDE 0.9% 1,000 ML 75 ML IV (18:00)
[2021-01-12] MEDS: CEFTRIAXONE 1 GM/50 ML FROZ.PIGGY IV (18:19)
[2021-01-12 19:07] LABS: Lactate 2HR (Lactic Acid Rflx) 4.2 mmol/L (0.7-2.1)
[2021-01-12] MEDS: SODIUM CHLORIDE 0.9% 500 ML IV (19:30)
[2021-01-12] MEDS: LACTULOSE 20 GM/30 ML SOLUTION 40 GM PO (20:11)
[2021-01-12 20:53] LABS: Fractionated Inspired Oxygen 21; HCO3 ABG 27 mmol/L (22-26); Oxygen Saturation ABG 96 % (95-100); PCO2 ABG 32.9 mmHg (35-45); PO2 ABG 73 mmHg (80-100); TCO2 ABG 28 mmol/L (21-31); pH ABG 7.52 (7.35-7.45)
[2021-01-13] VITALS (11 sets, daily range): BP systolic 94–116; BP diastolic 49–64; PULSE 71–110; RESP 16–20; TEMP 36.4–37.1; O2SAT 96–100
--- NOTE | 2021-01-13 00:23 | PC.NURSE ---
Pt confused. No verbal response but alert and awake. Pt restless and pulling at lines. HR running in the 120s. Matteo ROE notified, orders to place patient on radiation monitor.
--- NOTE | 2021-01-13 00:38 | PC.NURSE ---
Addendum entered by Avery Ceja CNA 01/13/21 06:25: Pt brief remains dry without urine or stool. Pt repositioning throughout the night, also removing his brief, gown, and covers. Pt frequently speaking with himself, and not being to sleep for very long before needing to reposition again. Addendum entered by Avery Ceja CNA 01/13/21 02:42: Pt brief soiled with very small amount of urine and a large amount of stool. Pt partially pulled NG tube out, RN informed, okay to leave NG tube out at this time. Pt now resting in bed, HR in mid 90s at this time. Original Note: Since start of noc shift, patient remains confused and non-verbal. Often will put arms up in air or to grasp the side rail, but no abrupt movements to leave bed. Brief remains dry.
[2021-01-13] MEDS: MORPHINE 2 MG/ML INJ IV ×3 (02:17→18:32)
--- NOTE | 2021-01-13 03:34 | PC.NURSE ---
Addendum entered by Yuli Stoddard R.N. 01/13/21 06:51: Pt oriented to self. Continues to be restless, tossing and turning in bed. Responds yes or no to questions. Notified Matteo ROE of critical lactate of 5, no orders received Addendum entered by Yuli Stoddard R.N. 01/13/21 04:50: Pt complaining of abdomen pain and kept saying i need to pee. Unable to get bladder scan due to patient constantly moving. Straight cath with 100ml urine Original Note: Pt restless and anxious. Pt pulled NG tube out. Matteo ROE notified. VO okay to keep out.
[2021-01-13] MEDS: SODIUM CHLORIDE 0.9% 1,000 ML 100 ML IV (04:26)
[2021-01-13 05:34] LABS: Add Manual Diff / Slide Review NO; Basophils Absolute Auto 0 /uL (0-100); Basophils Percent Auto 0.3 % (0-2); Eosinophils Absolute Auto 0 /uL (0-450); Eosinophils Percent Auto 0.4 % (2-4); Hematocrit 30.7 % (41-53); Hemoglobin 10.4 g/dL (13.5-17.5); Lymphocytes Absolute Auto 400 /uL (1100-4500); Lymphocytes Percent Auto 4.2 % (25-40); Mean Corpuscular Hemoglobin 33.6 PG (26-34); Mean Corpuscular Volume 98.7 fL (80-100); Monocytes Absolute Auto 1000 /uL (0-900); Monocytes Percent Auto 11.2 % (3-14); Neutrophils Absolute Auto 7300 /uL (1500-7000); Neutrophils Percent Auto 83.9 % (50-75); Platelet Count 73 X10^3/uL (150-400); Red Blood Cell Count 3.11 X10^6/uL (4.5-5.9); Red Cell Distribution Width 15.8 % (11.6-14.8); White Blood Cell Count 8.7 X10^3/uL (4.5-11.0)
[2021-01-13 05:43] LABS: Albumin 2.6 g/dL (3.5-5.0); Albumin Globulin Ratio 0.7 (1.0-2.8); Alkaline Phosphatase 172 U/L (38-126); Aspartate Aminotransferase 65 IU/L (17-59); BUN Creatinine Ratio 27.7 (6-22); Bilirubin Total 3.3 mg/dL (0.2-1.3); Bilirubin Unconjugated 2.9 mg/dL (0.0-1.1); Blood Urea Nitrogen 39 mg/dL (9-20); Calcium 8.8 mg/dL (8.4-10.2); Carbon Dioxide 26 mmol/L (22-32); Chloride 99 mmol/L (98-107); Estimated Glomerular Filt Rate 50.8 mL/min (>60); Globulin 3.9 g/dL (1.7-4.1); Glucose 170 mg/dL (80-110); HEMOLYSIS < 15 (0-50); Magnesium 2.3 mg/dL (1.6-2.3); Potassium 4.2 mmol/L (3.4-5.1); Sodium 131 mmol/L (137-145); Total Protein 6.5 g/dL (6.3-8.2)
[2021-01-13 05:49] LABS: Alanine Aminotransferase 43 IU/L (<50)
[2021-01-13 07:23] LABS: Reflexed Lactate in 2 Hours Y
[2021-01-13] MEDS: LACTULOSE 20 GM/30 ML SOLUTION 40 GM PO ×2 (07:41→21:57)
[2021-01-13 09:24] LABS: Lactate 2HR (Lactic Acid Rflx) 3.7 mmol/L (0.7-2.1)
--- NOTE | 2021-01-13 09:35 | PC.NURSE ---
Addendum entered by Georgette Porter R.N. 01/13/21 15:09: Dr Bolaños informed of no urine output this shift and bladder scanned at 1440 for 360cc, new orders received. Patient to take a dose of flomax and then give patient more time to void, report given to next shift RN. Addendum entered by Georgette Portre R.N. 01/13/21 14:40: Patient up to bathroom with two person assist, had medium amount loose liquid yellow stool, bladder scanned once back to bed, scanned 359ml. Bed alarm on. Addendum entered by Georgette Porter R.N. 01/13/21 13:07: Patient had second large loose yellow colored stool, up to BSC with two assist and FWW. No void, bladder scanned for 350cc, Dr Bolaños aware and states lets wait and give him more time. Patient assisted back to bed, alarm on. Original Note: Patient awake, confused, able to follow some simple commands. C/o pain to all over, given 2mg IVP morphine. Diet advanced and tolerated well, with one assist to eat. Patient c/o needing to urinate, bladder scanned for 44cc, Dr Bolaños aware, no orders at this time.
--- NOTE | 2021-01-13 11:14 | PM.PN.1 ---
Subjective Subjective Date Patient Seen: 01/13/21 Time Patient Seen: 11:15 Interval history: Patient is a 65-year-old male with chronic hep C cirrhosis, ascites, history of resection of hepatocellular carcinoma, chronic kidney disease, asthma sent to emergency department for acute confusion. Admitted for hepatic encephalopathy. Overnight he continued on lactulose, but did pull his NG tube. This morning he is more alert, now alert and oriented x2 and was able to tolerate oral lactulose and breakfast without any difficulty. He denies any chest pain, abdominal pain, nausea, or vomiting. He is still confused and does not recall why he is in the hospital, though he does confabulate. He does complain of some discomfort with urination, and his urine cultures are growing Gram-negative bacilli. He was started on ceftriaxone yesterday. Exam Vital Signs (past 8 hours): - 01/13/21 04:51 01/13/21 05:00 01/13/21 07:35 Temperature 98.8 F Pulse Rate 86 85 Respiratory Rate 17 Blood Pressure 94/53 L Pulse Oximetry 98 100 01/13/21 09:14 Temperature Pulse Rate Respiratory Rate Blood Pressure Pulse Oximetry 100 Oxygen Delivery Method Room Air Oxygen Flow Rate 0 Narrative Exam Narrative: GENERAL APPEARANCE: Chronically ill-appearing, obese male, no acute distress. GCS now 15. SKIN: Inspection of the skin reveals no rashes, ulcerations or petechiae. Mild jaundice. HEENT: Normocephalic atraumatic, extraocular muscles are intact, oropharynx is clear and mucous membranes are moist NECK: Supple and symmetric. There was no thyroid enlargement, and no tenderness, or masses were felt. CHEST: Normal AP diameter and normal contour without any kyphoscoliosis. LUNGS: Auscultation of the lungs revealed diminished breath sounds bilaterally but no wheezing, rhonchi, or rales. CARDIOVASCULAR: There was a normal rate and regular rhythm without any murmurs, gallops, rubs. Peripheral pulses were 2+ and symmetric. ABDOMEN: Soft, non-tender, and nondistended, obese abdomen. MUSCULOSKELETAL: No obvious joint effusions or deformities. EXTREMITIES: No cyanosis, clubbing or edema. NEUROLOGIC: Alert and oriented to person and place. Confabulates many responses, still confused. No focal deficits, moves all extremities equally. sensation intact to light touch bilaterally. Objective Labs Result Diagrams: 01/13/21 05:16 01/13/21 05:16 Labs: Laboratory Results - last 24 hr 01/12/21 01/12/21 01/12/21 15:21 15:21 15:21 WBC 7.4 RBC 3.35 L Hgb 11.2 L Hct 32.7 L MCV 97.5 MCH 33.3 MCHC 34.1 RDW 15.6 H Plt Count 78 L Neut % (Auto) 84.0 H Lymph % (Auto) 4.9 L [place] % (Auto) 10.4 Eos % (Auto) 0.2 L Baso % (Auto) 0.5 Neut # (Auto) 6200 Lymph # (Auto) 400 L [place] # (Auto) 800 Eos # (Auto) 0 Baso # (Auto) 0 PT 15.3 H INR 1.3 APTT 35 ABG pH ABG pCO2 ABG pO2 ABG HCO3 ABG Total CO2 ABG O2 Saturation ABG Base Excess FiO2 Sodium 128 L Potassium 5.0 Chloride 94 L Carbon Dioxide 28 BUN 36 H Creatinine 1.37 H Estimated GFR 52.5 L BUN/Creatinine Ratio 26.3 H Glucose 180 H Lactate Calcium 9.2 Magnesium Total Bilirubin 2.5 H Conjugated Bilirubin Unconjugated Bilirubin AST 71 H ALT 43 Alkaline Phosphatase 211 H Ammonia Total Creatine Kinase 45 L CK-MB (CK-2) TNP CK-MB (CK-2) Rel Index TNP Troponin I < 0.012 NT-Pro-B Natriuret Pep Total Protein 7.3 Albumin 3.0 L Globulin 4.3 H Albumin/Globulin Ratio 0.7 L Procalcitonin 0.15 TSH Urine Color Urine Appearance Urine pH Ur Specific [place] Urine Protein Urine Glucose (UA) Urine Ketones Urine Occult Blood Urine Nitrate Urine Bilirubin Urine Urobilinogen Ur Leukocyte Esterase Urine RBC Urine WBC Urine Bacteria Ur Culture Indicated? Salicylates < 1.0 U Opiates 300ng/mL cut Ur Oxycodone Screen Urine Methadone Screen Acetaminophen < 10 L Ur Barbiturates Screen U Tricyclic Antidepress Ur Phencyclidine Scrn Ur Amphetamines Screen U Methamphetamines Scrn Ur MDMA Scrn (Ecstasy) U Benzodiazepines Scrn Urine Cocaine Screen U Marijuana (THC) Screen Ethyl Alcohol < 10 SARS-CoV-2 (PCR) 01/12/21 01/12/21 01/12/21 15:21 15:21 15:21 WBC RBC Hgb Hct MCV MCH MCHC RDW Plt Count Neut % (Auto) Lymph % (Auto) [place] % (Auto) Eos % (Auto) Baso % (Auto) Neut # (Auto) Lymph # (Auto) [place] # (Auto) Eos # (Auto) Baso # (Auto) PT INR APTT ABG pH ABG pCO2 ABG pO2 ABG HCO3 ABG Total CO2 ABG O2 Saturation ABG Base Excess FiO2 Sodium Potassium Chloride Carbon Dioxide BUN Creatinine Estimated GFR BUN/Creatinine Ratio Glucose Lactate 3.7 H Calcium Magnesium Total Bilirubin Conjugated Bilirubin Unconjugated Bilirubin AST ALT Alkaline Phosphatase Ammonia 306 H Total Creatine Kinase CK-MB (CK-2) CK-MB (CK-2) Rel Index Troponin I NT-Pro-B Natriuret Pep Total Protein Albumin Globulin Albumin/Globulin Ratio Procalcitonin TSH 1.34 Urine Color Urine Appearance Urine pH Ur Specific [place] Urine Protein Urine Glucose (UA) Urine Ketones Urine Occult Blood Urine Nitrate Urine Bilirubin Urine Urobilinogen Ur Leukocyte Esterase Urine RBC Urine WBC Urine Bacteria Ur Culture Indicated? Salicylates U Opiates 300ng/mL cut Ur Oxycodone Screen Urine Methadone Screen Acetaminophen Ur Barbiturates Screen U Tricyclic Antidepress Ur Phencyclidine Scrn Ur Amphetamines Screen U Methamphetamines Scrn Ur MDMA Scrn (Ecstasy) U Benzodiazepines Scrn Urine Cocaine Screen U Marijuana (THC) Screen Ethyl Alcohol SARS-CoV-2 (PCR) 01/12/21 01/12/21 01/12/21 15:21 15:35 15:51 WBC RBC Hgb Hct MCV MCH MCHC RDW Plt Count Neut % (Auto) Lymph % (Auto) [place] % (Auto) Eos % (Auto) Baso % (Auto) Neut # (Auto) Lymph # (Auto) [place] # (Auto) Eos # (Auto) Baso # (Auto) PT INR APTT ABG pH ABG pCO2 ABG pO2 ABG HCO3 ABG Total CO2 ABG O2 Saturation ABG Base Excess FiO2 Sodium Potassium Chloride Carbon Dioxide BUN Creatinine Estimated GFR BUN/Creatinine Ratio Glucose Lactate Calcium Magnesium Total Bilirubin Conjugated Bilirubin Unconjugated Bilirubin AST ALT Alkaline Phosphatase Ammonia Total Creatine Kinase CK-MB (CK-2) CK-MB (CK-2) Rel Index Troponin I NT-Pro-B Natriuret Pep 318 H Total Protein Albumin Globulin Albumin/Globulin Ratio Procalcitonin TSH Urine Color Urine Appearance Urine pH Ur Specific [place] Urine Protein Urine Glucose (UA) Urine Ketones Urine Occult Blood Urine Nitrate Urine Bilirubin Urine Urobilinogen Ur Leukocyte Esterase Urine RBC Urine WBC Urine Bacteria Ur Culture Indicated? Salicylates U Opiates 300ng/mL cut Negative Ur Oxycodone Screen Negative Urine Methadone Screen Negative Acetaminophen Ur Barbiturates Screen Negative U Tricyclic Antidepress Positive H Ur Phencyclidine Scrn Negative Ur Amphetamines Screen Negative U Methamphetamines Scrn Negative Ur MDMA Scrn (Ecstasy) Negative U Benzodiazepines Scrn Positive H Urine Cocaine Screen Negative U Marijuana (THC) Screen Positive H Ethyl Alcohol SARS-CoV-2 (PCR) Negative 01/12/21 01/12/21 01/12/21 15:51 18:45 20:06 WBC RBC Hgb Hct MCV MCH MCHC RDW Plt Count Neut % (Auto) Lymph % (Auto) [place] % (Auto) Eos % (Auto) Baso % (Auto) Neut # (Auto) Lymph # (Auto) [place] # (Auto) Eos # (Auto) Baso # (Auto) PT INR APTT ABG pH 7.52 H ABG pCO2 32.9 L ABG pO2 73 L ABG HCO3 27 H ABG Total CO2 28 ABG O2 Saturation 96 ABG Base Excess 4.0 H FiO2 21 Sodium Potassium Chloride Carbon Dioxide BUN Creatinine Estimated GFR BUN/Creatinine Ratio Glucose Lactate 4.2 H* Calcium Magnesium Total Bilirubin Conjugated Bilirubin Unconjugated Bilirubin AST ALT Alkaline Phosphatase Ammonia Total Creatine Kinase CK-MB (CK-2) CK-MB (CK-2) Rel Index Troponin I NT-Pro-B Natriuret Pep Total Protein Albumin Globulin Albumin/Globulin Ratio Procalcitonin TSH Urine Color Yellow Urine Appearance Cloudy Urine pH 6.5 Ur Specific [place] 1.015 Urine Protein Trace H Urine Glucose (UA) Negative Urine Ketones Negative Urine Occult Blood 3+ H Urine Nitrate Negative Urine Bilirubin Negative Urine Urobilinogen 1.0 Ur Leukocyte Esterase Negative Urine RBC 10-30/hpf H Urine WBC 10-30/hpf H Urine Bacteria Many (>30) H Ur Culture Indicated? Specimen cultured Salicylates U Opiates 300ng/mL cut Ur Oxycodone Screen Urine Methadone Screen Acetaminophen Ur Barbiturates Screen U Tricyclic Antidepress Ur Phencyclidine Scrn Ur Amphetamines Screen U Methamphetamines Scrn Ur MDMA Scrn (Ecstasy) U Benzodiazepines Scrn Urine Cocaine Screen U Marijuana (THC) Screen Ethyl Alcohol SARS-CoV-2 (PCR) 01/13/21 01/13/21 01/13/21 05:16 05:16 05:16 WBC 8.7 RBC 3.11 L Hgb 10.4 L Hct 30.7 L MCV 98.7 MCH 33.6 MCHC 34.0 RDW 15.8 H Plt Count 73 L Neut % (Auto) 83.9 H Lymph % (Auto) 4.2 L [place] % (Auto) 11.2 Eos % (Auto) 0.4 L Baso % (Auto) 0.3 Neut # (Auto) 7300 H Lymph # (Auto) 400 L [place] # (Auto) 1000 H Eos # (Auto) 0 Baso # (Auto) 0 PT INR APTT ABG pH ABG pCO2 ABG pO2 ABG HCO3 ABG Total CO2 ABG O2 Saturation ABG Base Excess FiO2 Sodium 131 L Potassium 4.2 Chloride 99 Carbon Dioxide 26 BUN 39 H Creatinine 1.41 H Estimated GFR 50.8 L BUN/Creatinine Ratio 27.7 H Glucose 170 H Lactate 5.0 H* Calcium 8.8 Magnesium 2.3 Total Bilirubin 3.3 H Conjugated Bilirubin 0.0 Unconjugated Bilirubin 2.9 H AST 65 H ALT 43 Alkaline Phosphatase 172 H Ammonia Total Creatine Kinase CK-MB (CK-2) CK-MB (CK-2) Rel Index Troponin I NT-Pro-B Natriuret Pep Total Protein 6.5 Albumin 2.6 L Globulin 3.9 Albumin/Globulin Ratio 0.7 L Procalcitonin TSH Urine Color Urine Appearance Urine pH Ur Specific [place] Urine Protein Urine Glucose (UA) Urine Ketones Urine Occult Blood Urine Nitrate Urine Bilirubin Urine Urobilinogen Ur Leukocyte Esterase Urine RBC Urine WBC Urine Bacteria Ur Culture Indicated? Salicylates U Opiates 300ng/mL cut Ur Oxycodone Screen Urine Methadone Screen Acetaminophen Ur Barbiturates Screen U Tricyclic Antidepress Ur Phencyclidine Scrn Ur Amphetamines Screen U Methamphetamines Scrn Ur MDMA Scrn (Ecstasy) U Benzodiazepines Scrn Urine Cocaine Screen U Marijuana (THC) Screen Ethyl Alcohol SARS-CoV-2 (PCR) 01/13/21 08:58 WBC RBC Hgb Hct MCV MCH MCHC RDW Plt Count Neut % (Auto) Lymph % (Auto) [place] % (Auto) Eos % (Auto) Baso % (Auto) Neut # (Auto) Lymph # (Auto) [place] # (Auto) Eos # (Auto) Baso # (Auto) PT INR APTT ABG pH ABG pCO2 ABG pO2 ABG HCO3 ABG Total CO2 ABG O2 Saturation ABG Base Excess FiO2 Sodium Potassium Chloride Carbon Dioxide BUN Creatinine Estimated GFR BUN/Creatinine Ratio Glucose Lactate 3.7 H Calcium Magnesium Total Bilirubin Conjugated Bilirubin Unconjugated Bilirubin AST ALT Alkaline Phosphatase Ammonia Total Creatine Kinase CK-MB (CK-2) CK-MB (CK-2) Rel Index Troponin I NT-Pro-B Natriuret Pep Total Protein Albumin Globulin Albumin/Globulin Ratio Procalcitonin TSH Urine Color Urine Appearance Urine pH Ur Specific [place] Urine Protein Urine Glucose (UA) Urine Ketones Urine Occult Blood Urine Nitrate Urine Bilirubin Urine Urobilinogen Ur Leukocyte Esterase Urine RBC Urine WBC Urine Bacteria Ur Culture Indicated? Salicylates U Opiates 300ng/mL cut Ur Oxycodone Screen Urine Methadone Screen Acetaminophen Ur Barbiturates Screen U Tricyclic Antidepress Ur Phencyclidine Scrn Ur Amphetamines Screen U Methamphetamines Scrn Ur MDMA Scrn (Ecstasy) U Benzodiazepines Scrn Urine Cocaine Screen U Marijuana (THC) Screen Ethyl Alcohol SARS-CoV-2 (PCR) [facility] Medical History Anasarca Ascites Asthma Elevated brain natriuretic peptide (BNP) level Hepatitis C Hypertension Liver cancer Liver cirrhosis Surgical History History of surgery of liver Family History Father Trauma Mother Sjogrens syndrome Sister No significant medical problems Social History household members: spouse Smoking Status: Former smoker alcohol intake: former Assessment & Plan Assessment & Plan narrative: Patient is a 65-year-old male with chronic hep C cirrhosis, ascites, history of resection of hepatocellular carcinoma, chronic kidney disease, asthma sent to emergency department for acute confusion. Admitted for hepatic encephalopathy. 1. Acute hepatic encephalopathy , present on admission -GCS of 9 on admission, now improved to 15 but he is still confused today and confabulating. no overt pathology identified CXR. Head CT also unremarkable. Ammonia level 308. Suspect he had stopped or minimized lactulose at home after being discharged from SNF. -no leukocytosis, abdominal ultrasound at bedside with too small fluid pocket in setting of morbid obesity for abdominal paracentesis on admission. -continue lactulose 40 g BID. Titrate to between 3-5 BMs daily. -troponin within normal limits -consider rifaximin given compliance issues. -UA is positive with 10-30 WBC and 10-30 RBC, culture with gram negative organisms, will continue ceftriaxone, day 2/7. - PT / OT evaluations likely tomorrow if mental status continues to improve. 2. hepatitis-C cirrhosis - bilirubin has improved since previous admission. - suspect slightly dehydrated, will continue to hold home diuretics. Too small of a pocket of ascites to tap as noted above. 3. LALITHA on Chronic kidney disease III - resolved - Cr 1.37 on admission, slightly up to 1.41 today. lowest value previously around 0.9 during prior admission. Will stop IVF today given improvement however will continue to hold diuretics. 4. Elevated lactic acid, present on admission - continued rehydration until lactate <2. Suspect delay in improvement due to his cirrhosis. 5. Hyponatremia, acute, present on admission - mild at 128 on admit improved to 131 today, suspect secondary to slight dehydration. Was given 500 cc bolus overnight in addition to continuous fluids. Will stop NS today as the patient is more alert and eating. Will continue to monitor. 6. Acute cystitis, present on admission - UA with 10-30 WBC, RBC and many bacteria, sent for culture which has gram negative organisms. Continue ceftriaxone as noted above. Code: Full, unable to discuss this admission but previously discussed two admissions ago. Surrogate decision maker is the patient's Spouse. Dispo: Admitted as inpatient as his stay is expected to exceed two midnights DVT: SCDs, hold chemical given thrombocytopenia. FEN/GI: advanced to low sodium diet. IVF with NS @ 100
--- NOTE | 2021-01-13 11:37 | PM.CHAP ---
Pt tired so visit was very short. Pt requested visit from his barback. Arranged for a Wednesday afternoon pastoral visit from Ed Urbano. Ivan Lovell, Pastoral Care [phone]
--- NOTE | 2021-01-13 12:43 | CM.DPNOTE ---
aCssie with [facility] called and said patient has been using their services: RN, PT & OT. Ban Smith CM Asst.
--- NOTE | 2021-01-13 13:33 | CM.DANOTE ---
DCP Note OFFLINE CUTTER calls significant other Tayler to discuss patient. Tayler reports that med management was going well at home until recently. Tayler reports that patient ate food that made him sick and it impacted his med management. Tayler states that patient has been getting up in the middle of the night and eating food and she has to lock the refrigerator due to his dietary restrictions. Tayler states that still receives services from [facility]. Tayler states that patient's sister in law comes to the home to be with him during the day while she is at work. Tayler states that patient wants her to be bedside while he is in the hospital but she needs to be at work. Tayler states that if SNF is needed, preference would not be [facility]. Tayler states that she can visit patient around 1100 tomorrow 01/14/21 and meet with automatic developer. Plan: OFFLINE CUTTER will assess d/c plan after PT and OT evals on 01/14/21 TIFFANIE Trivedi
[2021-01-13] MEDS: TAMSULOSIN 0.4 MG CAPSULE PO (15:46)
[2021-01-13] MEDS: CEFTRIAXONE 1 GM/50 ML FROZ.PIGGY IV (18:32)
[2021-01-13] MEDS: SODIUM CHLORIDE 0.9% FLUSH 10 ML IV (21:57)
--- NOTE | 2021-01-13 22:51 | PC.NURSE ---
During this evening shift pt became progressively more agitated and impulsive. Pt is oriented to self, place and situation. Pt become distressed over being sent to a SNF again and expresses wanting be home with his spouse. Pt given emotional support through calling his spouse, calling his drier attendant and having this RN reassure him that he is doing well participating with his care in regards to taking lactulose. Pt ambulates well with walker and standby assist. Had multiple BMs during shift. At beginning of shift pt was given flomax and voided once soon after. Pt is eating and drinking. Due pt appearance of discomfort (moaning, restless, grimacing) and having difficulty communicating, pt was given 2mg IV morphine at 1830 for most likely generalized pain. Pt appeared less distressed after administration but continues to moan and move in bed. Sitter continues to be needed for pt.
[2021-01-14] VITALS (11 sets, daily range): BP systolic 98–129; BP diastolic 56–73; PULSE 70–81; RESP 14–18; TEMP 36.6–36.9; O2SAT 93–98
--- NOTE | 2021-01-14 00:56 | PC.NURSE ---
PT. C/O restlessness, but denies any pain. BHUPINDER Felipe notified order received to give Melatonin. Awaiting med. verification from night pharmacist. Will cont. POC & monitor.
[2021-01-14] MEDS: MELATONIN 3 MG TABLET 6 MG PO ×2 (01:24→21:59)
[2021-01-14 05:07] LABS: Add Manual Diff / Slide Review NO; Basophils Absolute Auto 100 /uL (0-100); Eosinophils Absolute Auto 200 /uL (0-450); Hematocrit 26.3 % (41-53); Lymphocytes Absolute Auto 500 /uL (1100-4500); Lymphocytes Percent Auto 8.8 % (25-40); Mean Corpuscular HGB Conc 34.1 % (30-36); Mean Corpuscular Hemoglobin 33.5 PG (26-34); Mean Corpuscular Volume 98.4 fL (80-100); Monocytes Absolute Auto 900 /uL (0-900); Monocytes Percent Auto 14.9 % (3-14); Neutrophils Absolute Auto 4400 /uL (1500-7000); Neutrophils Percent Auto 72.3 % (50-75); Platelet Count 62 X10^3/uL (150-400); Red Blood Cell Count 2.68 X10^6/uL (4.5-5.9); Red Cell Distribution Width 15.6 % (11.6-14.8); White Blood Cell Count 6.1 X10^3/uL (4.5-11.0)
[2021-01-14 05:10] LABS: Alanine Aminotransferase 33 IU/L (<50); Albumin 2.2 g/dL (3.5-5.0); Albumin Globulin Ratio 0.6 (1.0-2.8); Alkaline Phosphatase 145 U/L (38-126); Aspartate Aminotransferase 58 IU/L (17-59); BUN Creatinine Ratio 32.6 (6-22); Bilirubin Total 2.4 mg/dL (0.2-1.3); Blood Urea Nitrogen 42 mg/dL (9-20); Calcium 8.5 mg/dL (8.4-10.2); Carbon Dioxide 26 mmol/L (22-32); Chloride 99 mmol/L (98-107); Estimated Glomerular Filt Rate 56.3 mL/min (>60); Globulin 3.6 g/dL (1.7-4.1); Glucose 134 mg/dL (80-110); HEMOLYSIS < 15 (0-50); Magnesium 2.3 mg/dL (1.6-2.3); Potassium 3.8 mmol/L (3.4-5.1); Sodium 130 mmol/L (137-145); Total Protein 5.8 g/dL (6.3-8.2)
[2021-01-14] MEDS: LACTULOSE 20 GM/30 ML SOLUTION 40 GM PO (07:29)
[2021-01-14] MEDS: SODIUM CHLORIDE 0.9% FLUSH 10 ML IV ×2 (07:29→21:59)
--- NOTE | 2021-01-14 10:41 | PC.NURSE ---
Addendum entered by Georgette Porter R.N. 01/14/21 13:57: Patient awake, ate lunch independently, denies pain at this time, no stools this shift. Original Note: Patient alert, follows simple commands, oriented to self and place. Denies pain, tolerated breakfast without nausea. SBA to BSC, assisted back to bed, 1:1 sitter not needed at this time.Bed alarm on.
--- NOTE | 2021-01-14 11:56 | CM.DPNOTE ---
DCP Note Patient is 65 yo male with Medicaid and Medicare insurance. Present in the hospital due to jaundic and confusion. Patient lives at home with spouse Tayler, patient has family support with him while Tayler is at work. Patient is set up with [facility]. Patient presents as disoriented and was in and out of sleep when gis analyst developer met bedside with patient and spouse. Spouse states that he is doing better than yesterday. Spouse reported that she gives patient medications daily and he was out of his routine when he got sick. Patient does not want to go to SNF rehab and spouse reports it was traumatic for him. Patient will meet with PT today for eval. Plan: follow after PT, d/c home with continued [facility] when medically stable to d/c. TIFFANIE Trivedi Discharge Planning/Care Management CM Discharge Assessment Start: 01/14/21 11:48 Freq: Status: Active Protocol: Document 01/14/21 11:48 LN (Rec: 01/14/21 11:56 LN [id number]) Discharge Planning Assessment Assigned Corrosion Control Specialist TIFFANIE Trivedi Advance Directives? No Advance Directives on File No History Provided By Patient,Significant Other, Medical Record Has Patient been admitted in last 30 Yes days? Comment Patient was admitted on 12/10/20 until 12/19/20, d/c to SNF rehab. Prior Living Arrangements House Household Members spouse Type of transporation used prior to Relies on Others admit Independent with ADL's No Is patient alert and oriented? No Comment uses a crutch, a cane or a giant 7 ft walking stick Patient/Family Preference Home with Home Health Comment Medication compliance regarding his cirrhosis of the liver. Discharge Plan Home with Home Health Community Services Physical Therapy,Occupational Therapy,Home Health Nurse Transportation Arrangement Spouse Referrals Initiated Senior Living,Home Health Additional Comment Patient is currently set up with [facility] with PT, OT and RN. If patient plan is home with home health Yes : Has signed face to face form been completed? SNF/HH Preference Patient currently with [facility] Please Provide Date Initial DC 01/14/21 Assessment Was Performed
--- NOTE | 2021-01-14 12:37 | CM.DPC ---
DCP HH planning SW called [facility] and confirmed that they are open to service with the pt for RN/PT/OT/PLANT PROTECTION OFFICER and SW faxed H&P to review and alerted them that pt not stable for d/c home yet today. They will need Resume Orders at d/c if pt safe for d/c home with life partner. PT ordered and pending. Plan: SW to follow closely after PT eval to determine if pt still safe for d/c home with life partner with Resume [facility] as pt and life partner declining SNF at this time. Marie Olsen, PLANT PROTECTION OFFICER
--- NOTE | 2021-01-14 13:22 | PM.PN.1 ---
Subjective Subjective Date Patient Seen: 01/14/21 Time Patient Seen: 09:22 Interval history: Today he is still very altered and sleepy. Difficult to keep his eyes open and he is very confused this morning. Per the nurse he is improved from yesterday with less confusion. Exam Vital Signs (past 8 hours): - 01/14/21 07:27 01/14/21 08:00 01/14/21 12:25 Temperature 98.2 F 98 F Pulse Rate 76 70 Respiratory Rate 14 16 Blood Pressure 114/66 120/58 L Pulse Oximetry 96 96 98 01/14/21 12:26 Temperature Pulse Rate Respiratory Rate Blood Pressure Pulse Oximetry 98 Oxygen Delivery Method Room Air Oxygen Flow Rate 0 Narrative Exam Narrative: GENERAL APPEARANCE: Chronically ill-appearing, obese male, no acute distress. SKIN: Inspection of the skin reveals no rashes, ulcerations or petechiae. Mild jaundice. HEENT: Normocephalic atraumatic, extraocular muscles are intact, oropharynx is clear and mucous membranes are moist NECK: Supple and symmetric. There was no thyroid enlargement, and no tenderness, or masses were felt. CHEST: Normal AP diameter and normal contour without any kyphoscoliosis. LUNGS: Auscultation of the lungs revealed diminished breath sounds bilaterally but no wheezing, rhonchi, or rales. CARDIOVASCULAR: There was a normal rate and regular rhythm without any murmurs, gallops, rubs. Peripheral pulses were 2+ and symmetric. ABDOMEN: Soft, non-tender, and nondistended, obese abdomen. MUSCULOSKELETAL: No obvious joint effusions or deformities. EXTREMITIES: No cyanosis, clubbing or edema. NEUROLOGIC: Alert and oriented to person. Confused about place and date. +asterixis. Confabulates many responses, still confused. No focal deficits, moves all extremities equally. sensation intact to light touch bilaterally. Objective Labs Result Diagrams: 01/14/21 04:35 01/14/21 04:35 Labs: Laboratory Results - last 24 hr 01/14/21 01/14/21 04:35 04:35 WBC 6.1 RBC 2.68 L Hgb 9.0 L Hct 26.3 L MCV 98.4 MCH 33.5 MCHC 34.1 RDW 15.6 H Plt Count 62 L Neut % (Auto) 72.3 Lymph % (Auto) 8.8 L [place] % (Auto) 14.9 H Eos % (Auto) 3.0 Baso % (Auto) 1.0 Neut # (Auto) 4400 Lymph # (Auto) 500 L [place] # (Auto) 900 Eos # (Auto) 200 Baso # (Auto) 100 Sodium 130 L Potassium 3.8 Chloride 99 Carbon Dioxide 26 BUN 42 H Creatinine 1.29 H Estimated GFR 56.3 L BUN/Creatinine Ratio 32.6 H Glucose 134 H Calcium 8.5 Magnesium 2.3 Total Bilirubin 2.4 H Conjugated Bilirubin 0.0 Unconjugated Bilirubin 2.0 H AST 58 ALT 33 Alkaline Phosphatase 145 H Total Protein 5.8 L Albumin 2.2 L Globulin 3.6 Albumin/Globulin Ratio 0.6 L PFSH Medical History Anasarca Ascites Asthma Elevated brain natriuretic peptide (BNP) level Hepatitis C Hypertension Liver cancer Liver cirrhosis Surgical History History of surgery of liver Family History Father Trauma Mother Sjogrens syndrome Sister No significant medical problems Social History household members: spouse Smoking Status: Former smoker alcohol intake: former Assessment & Plan Assessment & Plan narrative: 65-year-old male with chronic hep C cirrhosis, ascites, history of resection of hepatocellular carcinoma, chronic kidney disease, asthma sent to emergency department for acute confusion. Admitted for hepatic encephalopathy. 1. Acute hepatic encephalopathy , present on admission -GCS of 9 on admission, now improved to 15 but he is still confused today with asterixis no overt pathology identified CXR. Head CT also unremarkable. Ammonia level 308. Suspect he had stopped or minimized lactulose at home after being discharged from SNF. May also be worsened with UTI -no leukocytosis, abdominal ultrasound at bedside with too small fluid pocket in setting of morbid obesity for abdominal paracentesis on admission. -continue lactulose with titration of 3-5 BM daily -troponin within normal limits -consider rifaximin given compliance issues. -UA is positive with 10-30 WBC and 10-30 RBC, culture with gram negative organisms, will continue ceftriaxone, day 2/7. - PT / OT evaluations 2. hepatitis-C cirrhosis - bilirubin has improved since previous admission. - suspect slightly dehydrated, will continue to hold home diuretics. Too small of a pocket of ascites to tap as noted above. 3. LALITHA on Chronic kidney disease III - Cr 1.37 on admission, slightly up to 1.41, but now improving to 1.29. lowest value previously around 0.9 during prior admission. Will stop IVF today given improvement however will continue to hold diuretics. 4. Elevated lactic acid, present on admission - continued rehydration until lactate <2. Suspect delay in improvement due to his cirrhosis. 5. Hyponatremia, acute, present on admission - mild at 128 on admit improved to 131 today, suspect secondary to slight dehydration. Was given 500 cc bolus overnight in addition to continuous fluids. Will stop NS today as the patient is more alert and eating. Will continue to monitor. 6. Acute cystitis, present on admission - UA with 10-30 WBC, RBC and many bacteria, sent for culture which has gram negative organisms. Continue ceftriaxone as noted above. Code: Full, unable to discuss this admission but previously discussed two admissions ago. Surrogate decision maker is the patient's Spouse. Dispo: Admitted as inpatient as his stay is expected to exceed two midnights DVT: SCDs, hold chemical given thrombocytopenia. FEN/GI: advanced to low sodium diet
[2021-01-14] MEDS: LACTULOSE 20 GM/30 ML SOLUTION 30 GM PO ×2 (14:29→21:59)
--- NOTE | 2021-01-14 14:50 | PT.IIE ---
Current Diagnoses Acute and subacute hepatic failure without coma (01/12/21) Unspecified cirrhosis of liver (01/12/21) Surgical History (Last Reviewed 01/12/21 @ 17:03 by Wero Bolaños DO) History of surgery of liver Medical History (Last Reviewed 01/12/21 @ 17:03 by Wero Bolaños DO) Anasarca Ascites Asthma Elevated brain natriuretic peptide (BNP) level Hepatitis C Hypertension Liver cancer Liver cirrhosis Physical Therapy Inpatient Evaluation/Re-Eval M1 PT/OT-IP Prior Functional Status Start: 01/14/21 16:12 Freq: NEEDED Status: Active Protocol: Document 01/14/21 14:50 AB (Rec: 01/14/21 16:22 AB [email or web address]) Medical Review Prior Functional Status Medical History Reviewed Yes Communication able to make needs known Mobility and Gait pt stated that he is modified independent at home and uses a FWW for ambulation Social History Household Members spouse Living Arrangements House Number of Floors (Floors) One Floor Number of Stairs To Enter/Railing? ramp to enter Home Environment Standard Height Toilet,Walk in Shower,Ramp Home Equipment Front Wheel Walker,Shower Seat with Backrest,Hand Held Shower,Grab Bars Near Toilet, Grab Bars In Shower Additional Social History Comment spouse works and pt is usually alone at home M2 PT-IP Current Condition Start: 01/14/21 16:12 Freq: NEEDED Status: Active Protocol: Document 01/14/21 14:50 AB (Rec: 01/14/21 16:22 AB [email or web address]) Physical Therapy Current Condition Current Condition Evaluation Date 01/14/21 Treatment Diagnosis AMS; hepatic encephalopathy; difficulty in walking Onset Date 01/12/21 Precautions Other Precautions falls M3 PT-IP Subjective Start: 01/14/21 16:12 Freq: NEEDED Status: Active Protocol: Document 01/14/21 14:50 AB (Rec: 01/14/21 16:22 AB [email or web address]) Subjective Physical Therapy Visit Type Type Initial Evaluation Visit Start Time 14:50 Visit Stop Time 15:34 Total Visit Minutes 44 Number of TEACHING FELLOW Visits 0 Physical Therapy Visit Comments Patient Comments pt is agreeable to do PT Therapy Pain Assessment Pain Present Pain Present Denied Pain M4 PT-IP Mobility and Gait Start: 01/14/21 16:12 Freq: NEEDED Status: Active Protocol: Document 01/14/21 14:50 AB (Rec: 01/14/21 16:22 AB [email or web address]) PT-Bed Mobility Assessment Supine to Sit Supine to Sit Standby Assistance,Bedrails Sit to Supine Sit to Supine Standby Assistance,Bedrails PT-Transfer Assessment Sit to and From Stand Sit to and from Stand Contact Guard Assistance,1 Person Assistance,Use of Upper Extremities Equipment Transfer Assistive Device Gait Belt,Front Wheeled Walker Orthotic/Prosthetic Devices or Brace: No Transfer Ability Level of Assist Contact Guard Assistance,Use of Upper Extremities Comments Mobility Comments nurse in room and stated that pt is sleepy and has not slep for 3 days and pt to go back to bed after PT. pt agreed to do PT. initially requires cues to stay awake but was able to participate better once mobility started. completed supine to sit SBA with use of bedrails. pt was able to sit on EOB SBA. completed sit to stand CGA and ambulated in room ~ 35 ft using FWW CGA. one standing rest break and pt was able to maintain standing balance using FWW for support CGA. noted L hand tremors during static standing. pt ambulated back to bed. completed sit to supine SBA. positioned in bed. call light and table placed within reach. Gait Assessment Gait Gait Assistance Required: Contact Guard Assist Distance (Feet) 35 Able to Maintain Weight Bearing Status Yes During Gait Assistive Devices Assistive Device Gait Belt,Front Wheeled Walker Orthotic/Prosthetic Devices or Brace: No Gait Deviations General Gait Pattern Antalgic,Flexed Trunk,Step-to Gait Factors Limiting Gait Function Factors Limiting Gait Function Decreased Activity Tolerance, Decreased Strength,Poor Balance,Poor Safety Awareness PT-Balance Assessment Sitting Balance and Reactions Static Sitting Balance Ability Good Dynamic Sitting Balance Ability Good Standing Balance and Reactions Static Standing Balance Ability Fair Dynamic Standing Balance Ability Fair Device Used FWW M5 PT-IP Objective Assessments Start: 01/14/21 16:12 Freq: NEEDED Status: Active Protocol: Document 01/14/21 14:50 AB (Rec: 01/14/21 16:22 [email or web address]) Orientation Orientation/Cognition Level of Alertness Alert Orientation Name,Place,Situation Language Function Ability No Deficits Noted Safety Awareness Decreased Safety Awareness Gross Range of Motion Lower Extremity ROM Assessment Within Functional Limits Strength Lower Extremity Strength Hip 4-/5 Knee 3+/5 Muscle Tone Comments Muscle Tone Comments pt with RUE tremors during static standing M6 PT-IP Treatment Start: 01/14/21 16:12 Freq: NEEDED Status: Active Protocol: Document 01/14/21 14:50 AB (Rec: 01/14/21 16:22 AB [email or web address]) Physical Therapy Treatment Education Education Provided Safety M7 PT-IP Assessment and Plan Start: 01/14/21 16:12 Freq: NEEDED Status: Active Protocol: Document 01/14/21 14:50 AB (Rec: 01/14/21 16:22 AB [email or web address]) PT Summary Assessment and Plan Potential Rehabilitation Potential Good Status of Condition at Evaluation Stable Summary Impairments Pain,ROM,Strength,Balance, Coordination,Sensation,Tone, Cognition,Bed Mobility, Transfers,Gait,Activity Tolerance Assessment Summary pt requiring CGA with mobility and cues for safety. pt stated that spouse works and he usually is by himself. pt will need HHPT to improve mobility and activity tolerance to improve independence. Goals Bed Mobility Goal Independent Transfer Goal Independent,Front Wheeled Walker Gait Goal Independent,Front Wheel Walker Gait Distance 150 Days to Meet Goals 10 Frequency of Treatment Frequency Of Treatment Once a Day Treatment Plan Physical Therapy Treatment Plan Bed Mobility Training,Transfer Training,Gait Training, Therapeutic Exercise,Balance Retraining,Discharge Planning, Hot or Cold Pack,Neuromuscular Re-ed,Coordination Retraining Recommendations To Nursing Amount of Assist Needed 1 Person Assist Discharge Recommendations PT Discharge Recommendations Home with Assistance,Home Health Transportation Needs at Discharge Private Vehicle
[2021-01-14] MEDS: CEFTRIAXONE 1 GM/50 ML FROZ.PIGGY IV (18:12)
[2021-01-15] VITALS: O2SAT 97
[2021-01-15] MEDS: MAG HYDROX/ALUM/SIMETH 30 ML UDC PO (00:46)
[2021-01-15] MEDS: PANTOPRAZOLE 40 MG VIAL 20 MG IV (00:46)
[2021-01-15 03:42] VITALS: BP 100/48; PULSE 66; RESP 18; TEMP 36.3; O2SAT 98
[2021-01-15 04:00] VITALS: O2SAT 98
[2021-01-15 05:21] LABS: Add Manual Diff / Slide Review NO; Basophils Absolute Auto 0 /uL (0-100); Basophils Percent Auto 0.8 % (0-2); Eosinophils Absolute Auto 200 /uL (0-450); Eosinophils Percent Auto 3.7 % (2-4); Hemoglobin 9.1 g/dL (13.5-17.5); Lymphocytes Absolute Auto 600 /uL (1100-4500); Lymphocytes Percent Auto 9.6 % (25-40); Mean Corpuscular HGB Conc 33.8 % (30-36); Mean Corpuscular Hemoglobin 33.4 PG (26-34); Mean Corpuscular Volume 98.7 fL (80-100); Monocytes Absolute Auto 800 /uL (0-900); Monocytes Percent Auto 14.7 % (3-14); Neutrophils Absolute Auto 4100 /uL (1500-7000); Neutrophils Percent Auto 71.2 % (50-75); Platelet Count 53 X10^3/uL (150-400); Red Blood Cell Count 2.74 X10^6/uL (4.5-5.9); Red Cell Distribution Width 15.3 % (11.6-14.8); White Blood Cell Count 5.8 X10^3/uL (4.5-11.0)
[2021-01-15 05:25] LABS: Alanine Aminotransferase 33 IU/L (<50); Albumin 2.2 g/dL (3.5-5.0); Albumin Globulin Ratio 0.6 (1.0-2.8); Alkaline Phosphatase 153 U/L (38-126); Aspartate Aminotransferase 62 IU/L (17-59); BUN Creatinine Ratio 32.8 (6-22); Bilirubin Total 1.5 mg/dL (0.2-1.3); Bilirubin Unconjugated 1.3 mg/dL (0.0-1.1); Blood Urea Nitrogen 39 mg/dL (9-20); Calcium 8.1 mg/dL (8.4-10.2); Carbon Dioxide 26 mmol/L (22-32); Chloride 99 mmol/L (98-107); Estimated Glomerular Filt Rate > 60.0 mL/min (>60); Globulin 3.4 g/dL (1.7-4.1); Glucose 141 mg/dL (80-110); HEMOLYSIS < 15 (0-50); Magnesium 2.1 mg/dL (1.6-2.3); Potassium 3.9 mmol/L (3.4-5.1); Sodium 128 mmol/L (137-145); Total Protein 5.6 g/dL (6.3-8.2)
--- NOTE | 2021-01-15 06:30 | PC.NURSE ---
Kadeem had a difficult time sleeping tonight despite receiving 6mg melatonin at approx 2200. He rested intermittently for short periods of time, then was heard talking to himself frequently and watching tv/listening to music on the tv. Kadeem denied pain tonight. He asked a few times to call his , but when reminded that it was still the middle of the night, he opted to wait until later when she is more likely to be awake.
[2021-01-15 08:00] VITALS: BP 109/45; PULSE 65; RESP 18; TEMP 36.1; O2SAT 100
[2021-01-15] MEDS: SODIUM CHLORIDE 0.9% FLUSH 10 ML IV (08:14)
[2021-01-15] MEDS: LACTULOSE 20 GM/30 ML SOLUTION 30 GM PO (08:14)
[2021-01-15 09:02] VITALS: O2SAT 100
--- NOTE | 2021-01-15 09:30 | PT.IPTN ---
Current Diagnoses Acute and subacute hepatic failure without coma (01/12/21) Unspecified cirrhosis of liver (01/12/21) Physical Therapy Treatment Note M2 PT-IP Current Condition Start: 01/14/21 16:12 Freq: NEEDED Status: Discharge Protocol: Document 01/14/21 14:50 AB (Rec: 01/14/21 16:22 AB [email or web address]) Physical Therapy Current Condition Current Condition Evaluation Date 01/14/21 Treatment Diagnosis AMS; hepatic encephalopathy; difficulty in walking Onset Date 01/12/21 Precautions Other Precautions falls M3 PT-IP Subjective Start: 01/14/21 16:12 Freq: NEEDED Status: Discharge Protocol: Document 01/15/21 09:15 SP (Rec: 01/15/21 13:30 SP [id number]) Subjective Physical Therapy Visit Type Type Treatment Note Visit Start Time 09:15 Visit Stop Time 09:30 Total Visit Minutes 15 Number of DRYER AND WASHER MECHANIC Visits 1 Physical Therapy Visit Comments Patient Comments pt agreeable to working with therapy. Patient Goals Return home with family to assist him. Therapy Pain Assessment Pain Present Pain Present Denied Pain M4 PT-IP Mobility and Gait Start: 01/14/21 16:12 Freq: NEEDED Status: Discharge Protocol: Document 01/15/21 09:15 SP (Rec: 01/15/21 13:30 SP [id number]) PT-Bed Mobility Assessment Supine to Sit Supine to Sit Standby Assistance Sit to Supine Sit to Supine Standby Assistance PT-Transfer Assessment Sit to and From Stand Sit to and from Stand Standby Assistance,Use of Upper Extremities Equipment Transfer Assistive Device Gait Belt,Front Wheeled Walker Orthotic/Prosthetic Devices or Brace: No Transfers Transfer Destination Bed,Chair Transfer Technique pt ambulated using FWW Transfer Ability Level of Assist Standby Assistance,Use of Upper Extremities Comments Mobility Comments Pt up in chair when arrived. Completed sit<>stand SBA, pt ambulated around nursing station using fWW sBA, sit<> supine sBA with no bed rails, static standing front chair FWW walker positioning in front NBOS head turns and eyes closed 30 sec, stable no LOB or deviations, pt unable to understand positioning stagger stance with demonstration guidence so didn't test. Pt was reclined in chair with call light and chair armed before left. Gait Assessment Gait Gait Assistance Required: Contact Guard Assist Distance (Feet) 136 Able to Maintain Weight Bearing Status Yes During Gait Assistive Devices Assistive Device Gait Belt,Front Wheeled Walker Orthotic/Prosthetic Devices or Brace: No Gait Deviations General Gait Pattern Antalgic Factors Limiting Gait Function Factors Limiting Gait Function Decreased Activity Tolerance, Decreased Strength,Difficulty Following Directions,Poor Balance,Poor Safety Awareness Comments Gait Comments See mobility comments. Stair Climbing Assessment Comments Stair Climbing Comments No stairs at home to assess. PT-Balance Assessment Sitting Balance and Reactions Static Sitting Balance Ability Normal Dynamic Sitting Balance Ability Normal Standing Balance and Reactions Static Standing Balance Ability Good Dynamic Standing Balance Ability Fair Device Used FWW Comments Other Balance Tests/Deviations/Treatment See mobility comments. : M5 PT-IP Objective Assessments Start: 01/14/21 16:12 Freq: NEEDED Status: Discharge Protocol: Document 01/14/21 14:50 AB (Rec: 01/14/21 16:22 AB [email or web address]) Orientation Orientation/Cognition Level of Alertness Alert Orientation Name,Place,Situation Language Function Ability No Deficits Noted Safety Awareness Decreased Safety Awareness Gross Range of Motion Lower Extremity ROM Assessment Within Functional Limits Strength Lower Extremity Strength Hip 4-/5 Knee 3+/5 Muscle Tone Comments Muscle Tone Comments pt with RUE tremors during static standing M6 PT-IP Treatment Start: 01/14/21 16:12 Freq: NEEDED Status: Discharge Protocol: Document 01/15/21 09:15 SP (Rec: 01/15/21 13:30 SP [id number]) Physical Therapy Treatment Education Education Provided Safety M7 PT-IP Assessment and Plan Start: 01/14/21 16:12 Freq: NEEDED Status: Discharge Protocol: Document 01/15/21 09:15 SP (Rec: 01/15/21 13:30 SP [id number]) PT Summary Assessment and Plan Potential Rehabilitation Potential Good Status of Condition at Evaluation Stable Summary Impairments Pain,ROM,Strength,Balance, Coordination,Sensation,Tone, Cognition,Bed Mobility, Transfers,Gait,Activity Tolerance Progress Towards Goals Progressing Toward Goals,Slow Progress due to Activity Tolerance Assessment Summary pt requiring SBA with mobility usign FWW and cues for safety . pt stated that spouse works and he usually is by himself but that son and daughter aren 't far to help if needed. pt would benefit from HHPT to improve mobility and activity tolerance to improve independence. Goals Bed Mobility Goal Independent Transfer Goal Independent,Front Wheeled Walker Gait Goal Independent,Front Wheel Walker Gait Distance 150 Days to Meet Goals 10 Frequency of Treatment Frequency Of Treatment Once a Day Treatment Plan Physical Therapy Treatment Plan Bed Mobility Training,Transfer Training,Gait Training, Therapeutic Exercise,Balance Retraining,Discharge Planning, Hot or Cold Pack,Neuromuscular Re-ed,Coordination Retraining Other Recommendations and Next Treatment dynamic balance activities, Focus gait w/ LRAD Recommendations To Nursing Amount of Assist Needed Standby Assistance Discharge Recommendations PT Discharge Recommendations Home with Assistance,Home Health Transportation Needs at Discharge Private Vehicle
--- NOTE | 2021-01-15 12:56 | PC.NURSE ---
Went over dc instructions and medications with patient and patients significant other< questions answered. Patient has follow up appt scheduled with PCP next week. Patient taken via wc to vehicle driven by spouse. Patient had all belongings.
--- NOTE | 2021-01-15 15:28 | CM.DPC ---
DCP Discharge Home HH Per MD, pt is medically stable to d/c home today with [facility]. Per PT, pt improved significantly and recommending home with HH. SW met bedside with pt and he confirms he is feeling much better and preference is home with [facility] and he called and spoke to his life partner Tayler who can provide transport home and will be coming in later this morning or early afternoon. NEYMAR called and left msg with [facility] with update on pt d/c home today and faxed [facility] Orders, d/c summary not yet available. Plan: Patient to d/c home today via POV and [facility]. TIFFANIE Naranjo
--- NOTE | 2021-01-15 17:26 | P.DS_ITS ---
History of Present Illness History of Present Illness Chief complaint: Altered mental status & Jandice Narrative: Per H and P from [facility] 01/11/21: Patient is a 65-year-old male with chronic hep C cirrhosis, ascites, history of resection of hepatocellular carcinoma, chronic kidney disease, asthma sent to emergency department for acute confusion. He was recently discharged about a month ago for hepatic encephalopathy to a SNF. History is largely obtained from the ER provider and chart review as no further information is available at this time and patient is quite somnolent. According to EMS providers the patient was ambulatory and talkative yesterday, but today is very lethargic but responding t o voice and pain. In the emergency room, the patient's vital signs were unremarkable, laboratory evaluation revealed no leukocytosis with a WBC of 7.4, hemoglobin of 11.2 up from his previous admission where he was around 9 and a platelet count of 78, also up from his previous admission. INR was 1.3. Chemistries revealed a sodium of 128, creatinine of 1.37 (baseline around 0.9), lactate of 3.7, T bili of 2.5 (improved), AST of 71, ALT of 43, ammonia level was 306. Troponin was negative. ProBNP was 318. TSH was unremarkable at 1.34. Procalcitonin was 0.15. Urinalysis revealed 10-30 rbc's, 10-30 wbc's and many bacteria and was sent for culture. Toxicology screening revealed no Tylenol level, no alcohol level, urine drug screen was positive for TCAs, benzodiazepines, and marijuana. COVID-[address] without contrast of his head was unremarkable. Chest x-ray was shows poor inspiratory volume and no focal infiltrates, with possible vascular congestion. 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 Acute hepatic encephalopathy, present on admission 2. Chronic hepatitis-C cirrhosis decompensated with ascites 3. LALITHA on CKD stage 3, improving 4. Hepatocellular carcinoma 5. Acute cystitis 6. Asthma 7. Opioid dependence 8. Anemia 9. Hyponatremia 10. UTI Hospital Course: Mr. Guzmán was admitted with confusion and found to have acute hepatic encephalopathy. he had ammonia of 308. He also had a UTI which may contribute to his encephalopathy. This was a sensitive E. coli for which he was given antibiotics for planned 5 day course. Initially he needed rectal lactulose. However he had good improvement and was transitioned to oral lactulose. On day of discharge he was back to his mental baseline. He declined to go to SNF. He was recommended to keep his lactulose titrated to 2-3 bowel movement daily, he stated that he usually only had one bowel movement daily. He should be considered for rifaximin if continues to have issues with control with just lactulose. He also was noted to have an LALITHA with creatinine of 1.41 this was improved to 1.19 on discharge. His sodium was mildly decreased likely from cirrhosis. For the LALITHA and hyponatremia his spironolactone was held on DC. He had an abominal ultrasound which showed a tiny pocket of ascites too small for drainage. For his UTI he will be discharge on three more days of levaquin. The rest of his medical issues were stable in the hospital. Status at Discharge Cognitive/behavioral status at discharge: oriented Functional status at discharge: uses cane/walker Overall status at discharge: patient is back to baseline Time Spent with Patient Time spent: Greater than 30 minutes Exam Vital Signs (past 8 hours): Oxygen Delivery Method Room Air Oxygen Flow Rate 0 Narrative Exam Narrative: GENERAL APPEARANCE: Chronically ill-appearing, obese male, no acute distress. SKIN: Inspection of the skin reveals no rashes, ulcerations or petechiae. HEENT: Normocephalic atraumatic, extraocular muscles are intact, oropharynx is clear and mucous membranes are moist NECK: Supple and symmetric. There was no thyroid enlargement, and no tenderness, or masses were felt. LUNGS: Auscultation of the lungs revealed diminished breath sounds bilaterally but no wheezing, rhonchi, or rales. CARDIOVASCULAR: There was a normal rate and regular rhythm without any murmurs, gallops, rubs. Peripheral pulses were 2+ and symmetric. ABDOMEN: Soft, non-tender, and nondistended, obese abdomen. MUSCULOSKELETAL: No obvious joint effusions or deformities. EXTREMITIES: No cyanosis, clubbing or edema. NEUROLOGIC: AAOx4. +asterixis improves. No focal deficits, moves all extremities equally. sensation intact to light touch bilaterally. Objective Labs Result Diagrams: 01/15/21 04:50 01/15/21 04:50 Labs: Laboratory Results - last 24 hr 01/15/21 01/15/21 04:50 04:50 WBC 5.8 RBC 2.74 L Hgb 9.1 L Hct 27.0 L MCV 98.7 MCH 33.4 MCHC 33.8 RDW 15.3 H Plt Count 53 L Neut % (Auto) 71.2 Lymph % (Auto) 9.6 L [place] % (Auto) 14.7 H Eos % (Auto) 3.7 Baso % (Auto) 0.8 Neut # (Auto) 4100 Lymph # (Auto) 600 L [place] # (Auto) 800 Eos # (Auto) 200 Baso # (Auto) 0 Sodium 128 L Potassium 3.9 Chloride 99 Carbon Dioxide 26 BUN 39 H Creatinine 1.19 Estimated GFR > 60.0 BUN/Creatinine Ratio 32.8 H Glucose 141 H Calcium 8.1 L Magnesium 2.1 Total Bilirubin 1.5 H Conjugated Bilirubin 0.0 Unconjugated Bilirubin 1.3 H AST 62 H ALT 33 Alkaline Phosphatase 153 H Total Protein 5.6 L Albumin 2.2 L Globulin 3.4 Albumin/Globulin Ratio 0.6 L [facility] Medical History Anasarca Ascites Asthma Elevated brain natriuretic peptide (BNP) level Hepatitis C Hypertension Liver cancer Liver cirrhosis Surgical History History of surgery of liver Family History Father Trauma Mother Sjogrens syndrome Sister No significant medical problems Social History household members: spouse Smoking Status: Former smoker alcohol intake: former Discharge Plan Discharge Plan Patient Disposition: Home Provider Discharge Comment: Mr. Guzmán was admitted with confusion, found to have hepatic encephalopathy. He was found to have a UTI. He was treated with antibiotics in the hospital, and recommended to take 3 more days of antibiotics. His hepatic encephalopathy improved with lactulose. He should take lactulose to the point where he is having 2-3 bowel movements every single day. This may require taking an extra dose or two of lactulose. This will help keep his ammonia levels low. He should follow up with his PCP in one week. Discharge orders & Medications Prescriptions: New levofloxacin 500 mg tablet 500 mg PO DAILY Qty: 3 RF: 0 Continued albuterol sulfate 90 mcg/actuation aerosol powdr breath activated 2 inhalation INHALATION Q4-6H PRN (Reason: shortness of breath or wheezing) Qty: 1 RF: 6 bumetanide 2 mg Tablet 2 mg PO DAILY RF: 0 calcium carbonate 500 mg calcium (1,250 mg) Tablet,Chewable 500 mg PO DAILY PRN (Reason: (Drug) Ingestion) RF: 0 lactulose 20 gram/30 mL Solution 40 gm PO BID Qty: 30 RF: 0 Discontinued spironolactone 50 mg tablet 100 mg PO DAILY RF: 0 Follow up/Referrals: Pancho Payan MD [Primary Care Provider] - Discharge Health Status Multidrug resistant organism: No MDRO Diet/Activity/Treatments Diet: Low-sodium Visit Report/Discharge Packet Instructions: Lactulose, Levofloxacin, DI for Hepatic Encephalopathy Discharge Data Primary Care Provider: Pancho Payan
== END 2021-01-15 12:57 | disposition home health service (06) | DRG 442 ==
LOC: ED 16:19 → AC 16:19
PROVIDERS: Nurse Practitioner Adult Health; Admitting Provider Internal Medicine; Emergency Provider Emergency Medicine; PCP Internal Medicine; Referring Provider Emergency Medicine; Visit Provider Internal Medicine
DX: K72.00 Acute and subacute hepatic failure without coma (principal); N17.9 Acute kidney failure, unspecified; E87.1 Hypo-osmolality and hyponatremia; N30.00 Acute cystitis without hematuria; R18.8 Other ascites; K74.69 Other cirrhosis of liver; Z20.822 Contact with and (suspected) exposure to COVID-19; R79.89 Other specified abnormal findings of blood chemistry; B18.2 Chronic viral hepatitis C
CPT/HCPCS: 36415; 36592; 36600; 70450; 71045; 80048; 80053; 80076; 80305; 80320; 80329; 81001; 82140; 82550; 82805; 82962; 83605; 83735; 83880; 84145; 84443; 84484; 85025; 85610; 85730; 87040; 87077; 87086; 87186; 87635; 93005; 96360; 96361; 97161; 97530; 99284; 99285; C9113; G0480; J2270

== ENCOUNTER 2021-02-09 13:59 | Emergency (ER) | payer MEDICARE, MEDICAID, SELFPAY ==
[2020-12-16 10:24] VITALS: RESP 12
[2020-12-16 10:41] VITALS: PULSE 72; RESP 13; O2SAT 97
[2021-01-12 18:17] VITALS: BMI 39.7
[2021-02-09 14:21] VITALS: BP 113/60; PULSE 77; RESP 18; TEMP 36.6; O2SAT 98; BMI 38.9
--- NOTE | 2021-02-09 14:27 | PC.NURSE ---
patient has a history of hepatitis, cancer, and liver scarring. He has a prescription for lactulose and thinks he missed a dose of his medication and has been acting progressively more confused than baseline. wanted to be proactive and get him help before it got worse.
[2021-02-09 14:36] LABS: INR 1.5 (0.9-1.3); Prothrombin Time 16.9 SECONDS (10.1-12.7)
[2021-02-09 14:38] LABS: PTT Partial Thromboplastin Tim 35 SECONDS (26.4-36.2)
[2021-02-09 14:40] LABS: Alanine Aminotransferase 38 IU/L (<50); Albumin 2.9 g/dL (3.5-5.0); Albumin Globulin Ratio 0.7 (1.0-2.8); Alkaline Phosphatase 137 U/L (38-126); Aspartate Aminotransferase 76 IU/L (17-59); BUN Creatinine Ratio 27.4 (6-22); Bilirubin Total 3.2 mg/dL (0.2-1.3); Blood Urea Nitrogen 37 mg/dL (9-20); Calcium 8.8 mg/dL (8.4-10.2); Carbon Dioxide 21 mmol/L (22-32); Chloride 99 mmol/L (98-107); Estimated Glomerular Filt Rate 53.4 mL/min (>60); Globulin 4.3 g/dL (1.7-4.1); Glucose 192 mg/dL (80-110); Lipase 483 U/L (23-300); Potassium 4.7 mmol/L (3.4-5.1); Sodium 128 mmol/L (137-145); Total Protein 7.2 g/dL (6.3-8.2)
[2021-02-09 14:41] LABS: Ammonia (NH3) 24 umol/L (9-30)
--- NOTE | 2021-02-09 14:42 | DI.RAD.S_ITS ---
PROCEDURE: XR CHEST 1V INDICATIONS: altered mental statu TECHNIQUE: One view of the chest was acquired. COMPARISON: [facility], CR, XR CHEST 1V, 01/12/2021, 16:28. FINDINGS: Surgical changes and devices: None. Lungs and pleura: Stable elevation of the right hemidiaphragm with adjacent atelectasis/scarring. No focal consolidation, pneumothorax, or pleural effusion. Mediastinum: Mediastinal contours appear normal. Heart size is normal. Bones and chest wall: No suspicious bony lesions. Overlying soft tissues appear unremarkable. Calcifications along the lateral aspects of the neck likely representing carotid vascular calcifications. IMPRESSION: No evidence of an acute cardiopulmonary abnormality. Dictated by: Aakash Pena D.O. on 02/09/2021 at 14:07 Approved by: Aakash Pena D.O. on 02/09/2021 at 14:08
--- NOTE | 2021-02-09 14:42 | DI.CT.S_ITS ---
PROCEDURE: CT HEAD/BRAIN WO CON INDICATIONS: altered mental status TECHNIQUE: Noncontrast 4.5 mm thick angled axial sections acquired from the foramen magnum to the vertex, with coronal and sagittal reformats. For radiation dose reduction, the following was used: automated exposure control, adjustment of mA and/or kV according to patient size. COMPARISON: [facility], CT, CT HEAD/BRAIN WO CON, 12/10/2020, 15:13. [facility], CT, CT HEAD/BRAIN WO CON, 01/12/2021, 15:17. FINDINGS: Image quality: Excellent. CSF spaces: Basal cisterns are patent. No extra-axial fluid collections. Ventricles are normal in size and shape. Brain: No midline shift. No intracranial masses or hemorrhage. Mild periventricular and deep white matter hypoattenuation consistent with microvascular ischemic changes. This is similar to prior exams. Bustillos-white matter interface is normal. Vascular calcifications within the proximal intracranial carotid arteries. Skull and face: Calvarium and visualized facial bones are intact, without suspicious lesions. Sinuses: Visualized sinuses and mastoids are clear. IMPRESSION: Stable exam without evidence of an acute intracranial abnormality. Dictated by: Aakash Pena D.O. on 02/09/2021 at 14:10 Approved by: Aakash Pena D.O. on 02/09/2021 at 14:13
[2021-02-09 14:45] LABS: Add Manual Diff / Slide Review NO; Basophils Absolute Auto 0 /uL (0-100); Basophils Percent Auto 0.3 % (0-2); Eosinophils Absolute Auto 100 /uL (0-450); Eosinophils Percent Auto 1.1 % (2-4); HEMOLYSIS 55 (0-50); Hematocrit 31.1 % (41-53); Hemoglobin 10.5 g/dL (13.5-17.5); Lymphocytes Absolute Auto 400 /uL (1100-4500); Lymphocytes Percent Auto 3.7 % (25-40); Mean Corpuscular HGB Conc 33.9 % (30-36); Mean Corpuscular Hemoglobin 33.2 PG (26-34); Monocytes Absolute Auto 1000 /uL (0-900); Monocytes Percent Auto 9.6 % (3-14); Neutrophils Absolute Auto 9300 /uL (1500-7000); Neutrophils Percent Auto 85.3 % (50-75); Platelet Count 79 X10^3/uL (150-400); Red Blood Cell Count 3.17 X10^6/uL (4.5-5.9); Red Cell Distribution Width 15.7 % (11.6-14.8); White Blood Cell Count 10.9 X10^3/uL (4.5-11.0)
[2021-02-09 15:40] VITALS: BP 118/57; PULSE 78; RESP 16; O2SAT 98
--- NOTE | 2021-02-09 15:57 | ED_ITS ---
HPI - Recheck/Abnormal Lab/Rx General Chief Complaint: Recheck/Abnormal Lab/Rx Stated Complaint: liver problem turning jaundice Time Seen by Provider: 02/09/21 14:42 Source: patient and family (daughter) Mode of arrival: Ambulatory Limitations: no limitations History of Present Illness HPI narrative: This is a 65-year-old male whose family brings him in for altered mental status and history of hepatic cirrhosis secondary to hepatitis C which was treated. Patient developed liver cancer which was also subsequently treated but has chronic cirrhosis subsequently. Patient may have missed a dose or 2 of lactulose according to his daughter. She states that has had some increased confusion although he is not as confused or altered as he typically is. She states she brought him early because she was concerned he had nausea and vomiting overnight as well as diarrhea frequently. She states that he would walk around the room and have diarrhea and did not seem to notice or care. She states he has also been answering questions inappropriately. She states he has not had any fevers or chills that she is aware of. Patient is denying any chest pain, abdominal pain, back or flank pain. No headaches or vision changes. He denies any fevers. He does not feel nauseated currently and is not actively vomiting in the department. He has had diarrhea but no samples have been attained here. They have not noted any melena or bright red blood. No current issues with urination such as frequency, dysuria urgency. Patient has not had any new medication changes recently. Related Data Home Medications Medication Instructions Recorded Confirmed bumetanide 2 mg PO DAILY 11/22/20 02/09/21 calcium carbonate 500 mg PO DAILY PRN 11/23/20 02/09/21 Previous Rx's Medication Instructions Recorded albuterol sulfate 90 mcg/actuation 2 inhalation INHALATION Q4-6H PRN 01/23/20 breath activated powder inhaler #1 each lactulose 40 gm PO BID #30 ml 12/19/20 Allergies Allergy/AdvReac Type Severity Reaction Status Date / Time No Known Drug Allergies Allergy Verified 01/12/21 15:28 Review of Systems Review of Systems ROS Unobtainable: All systems reviewed & are unremarkable except as noted in HPI and below (family helps/prompts patient) Patient History Medical History (Updated 02/09/21 @ 19:07 by Sharri Davis DO) Anasarca Ascites Asthma Elevated brain natriuretic peptide (BNP) level Hepatitis C Hypertension Liver cancer Liver cirrhosis Surgical History History of surgery of liver Family History Father Trauma Mother Sjogrens syndrome Sister No significant medical problems Social History household members: spouse Smoking Status: Former smoker alcohol intake: former Smoking Status: Former smoker alcohol intake frequency: 0-2 drinks per day Substance Use Type: marijuana Exam Narrative Exam Narrative: GEN: Elderly male, alert, oriented to self but confused, patient appears to be in mild distress. Jaundice. HEENT: Atraumatic, pupils are equal round reactive to light, extraocular moveme nts are intact, nares are clear, Throat is clear without any exudates, erythema, tonsillar enlargement or uvular deviation, no meningeal signs. Full range of motion. HEART: Regular rate and rhythm without murmur, clicks, rubs. Pulses are equal in upper and lower extremities LUNGS:Lungs clear to auscultation, no wheezes, rales, crackles, chest moves symmetrically, no tachypnea. ABD:bowel sounds normal, soft, non-tender, no guarding, rebound, rigidity, no masses noted, no hepatosplenomegaly, mild to moderately distended. :No CVA tenderness MSCL: Non-tender, no muscle atrophy, muscles strength 5/5 upper and lower extremities, full range of motion NEURO:CN 2-12 intact, sensation normal, no asterixis. SKIN: Jaundice, no rash other skin changes noted. 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 Result diagrams: 02/09/21 14:20 02/09/21 14:20 Labs: Lab Results 02/09/21 02/09/21 02/09/21 Range/Units 14:20 14:20 14:20 WBC 10.9 (4.5-11.0) X10^3/uL RBC 3.17 L (4.5-5.9) X10^6/uL Hgb 10.5 L (13.5-17.5) g/dL Hct 31.1 L (41-53) % MCV 98.0 (80-100) fL MCH 33.2 (26-34) PG MCHC 33.9 (30-36) % RDW 15.7 H (11.6-14.8) % Plt Count 79 L (150-400) X10^3/uL Neut % (Auto) 85.3 H (50-75) % Lymph % (Auto) 3.7 L (25-40) % Alcorn % (Auto) 9.6 (3-14) % Eos % (Auto) 1.1 L (2-4) % Baso % (Auto) 0.3 (0-2) % Neut # (Auto) 9300 H (8681-6472) /uL Lymph # (Auto) 400 L (5603-9995) /uL Alcorn # (Auto) 1000 H (0-900) /uL Eos # (Auto) 100 (0-450) /uL Baso # (Auto) 0 (0-100) /uL PT 16.9 H (10.1-12.7) SECONDS INR 1.5 H (0.9-1.3) APTT 35 (26.4-36.2) SECONDS Sodium 128 L (137-145) mmol/L Potassium 4.7 (3.4-5.1) mmol/L Chloride 99 (98-107) mmol/L Carbon Dioxide 21 L (22-32) mmol/L BUN 37 H (9-20) mg/dL Creatinine 1.35 H (0.66-1.25) mg/dL Estimated GFR 53.4 L (>60) mL/min BUN/Creatinine Ratio 27.4 H (6-22) Glucose 192 H (80-110) mg/dL Calcium 8.8 (8.4-10.2) mg/dL Total Bilirubin 3.2 H (0.2-1.3) mg/dL AST 76 H (17-59) IU/L ALT 38 (<50) IU/L Alkaline Phosphatase 137 H (38-126) U/L Ammonia (9-30) umol/L Total Protein 7.2 (6.3-8.2) g/dL Albumin 2.9 L (3.5-5.0) g/dL Globulin 4.3 H (1.7-4.1) g/dL Albumin/Globulin Ratio 0.7 L (1.0-2.8) Lipase 483 H (23-300) U/L Urine Color Urine Appearance Urine pH (4.5-8.0) Ur Specific [place] (1.000-1.035) Urine Protein (Negative) Urine Glucose (UA) (Negative) g/dL Urine Ketones (NEGATIVE) Urine Occult Blood (Negative) Urine Nitrate (Negative) Urine Bilirubin (NEGATIVE) Urine Urobilinogen (0.2) E.U./dL Ur Leukocyte Esterase (NEGATIVE) Urine RBC (0-5/HPF) Urine WBC (0-5/HPF) Urine Bacteria (None) Ur Culture Indicated? SARS-CoV-2 (PCR) (Negative) 02/09/21 02/09/21 02/09/21 Range/Units 14:20 16:04 18:24 WBC (4.5-11.0) X10^3/uL RBC (4.5-5.9) X10^6/uL Hgb (13.5-17.5) g/dL Hct (41-53) % MCV (80-100) fL MCH (26-34) PG MCHC (30-36) % RDW (11.6-14.8) % Plt Count (150-400) X10^3/uL Neut % (Auto) (50-75) % Lymph % (Auto) (25-40) % Alcorn % (Auto) (3-14) % Eos % (Auto) (2-4) % Baso % (Auto) (0-2) % Neut # (Auto) (0039-4466) /uL Lymph # (Auto) (0265-2859) /uL Alcorn # (Auto) (0-900) /uL Eos # (Auto) (0-450) /uL Baso # (Auto) (0-100) /uL PT (10.1-12.7) SECONDS INR (0.9-1.3) APTT (26.4-36.2) SECONDS Sodium (137-145) mmol/L Potassium (3.4-5.1) mmol/L Chloride (98-107) mmol/L Carbon Dioxide (22-32) mmol/L BUN (9-20) mg/dL Creatinine (0.66-1.25) mg/dL Estimated GFR (>60) mL/min BUN/Creatinine Ratio (6-22) Glucose (80-110) mg/dL Calcium (8.4-10.2) mg/dL Total Bilirubin (0.2-1.3) mg/dL AST (17-59) IU/L ALT (<50) IU/L Alkaline Phosphatase (38-126) U/L Ammonia 24 (9-30) umol/L Total Protein (6.3-8.2) g/dL Albumin (3.5-5.0) g/dL Globulin (1.7-4.1) g/dL Albumin/Globulin Ratio (1.0-2.8) Lipase (23-300) U/L Urine Color Yellow Urine Appearance Clear Urine pH 5.5 (4.5-8.0) Ur Specific [place] 1.015 (1.000-1.035) Urine Protein Negative (Negative) Urine Glucose (UA) Trace H (Negative) g/dL Urine Ketones Negative (NEGATIVE) Urine Occult Blood 3+ H (Negative) Urine Nitrate Negative (Negative) Urine Bilirubin Negative (NEGATIVE) Urine Urobilinogen 0.2 (0.2) E.U./dL Ur Leukocyte Esterase Negative (NEGATIVE) Urine RBC 10-30/hpf H (0-5/HPF) Urine WBC None seen (0-5/HPF) Urine Bacteria None seen (None) Ur Culture Indicated? Cult not indicated SARS-CoV-2 (PCR) Negative (Negative) Imaging Data CT scan - abdomen/pelvis: Radiologist's Impression: [facility] [place] [id number] Scan ReportSigned Patient: Juan Carlos Guzmán AMR#: [id number]: 7Acct:[id number]/Sex: 65 / MDate of Service: 02/09/21Loc: EDAccession Number: [id number] Procedure: CT abdomen pelvis w con Ordering Provider: Sharri Davis D.O. PROCEDURE: CT ABDOMEN PELVIS W CON INDICATIONS: vomiting, diarrhea, cirrhosis hx, confusion TECHNIQUE: After the administration of intravenous contrast, 5 mm thick sections acquired from the diaphragm to the symphysis. 5 mm coronal and sagittal reformats were acquired. For radiation dose reduction, the following was used: automated exposure control, adjustment of mA and/or kV according to patient size. COMPARISON: [facility], CT, CT CHEST ABD PEL WO CON, 12/10/2020, 15:13. [facility], CT, CT ABDOMEN WO/W CON, 07/03/2020, 10:42. [facility], CT, CT AB DOMEN PELVIS W CON, 11/22/2020, 11:09. FINDINGS: Image quality: Excellent. ABDOMEN: Lung bases: Right greater than left basilar atelectasis. Heart size within normal limits. There is marked coronary vascular calcifications. Aortic valvular calcifications. Inferior esophagus is unremarkable. Solid organs: Cirrhotic morphology of the liver is again identified. Multiple regions of metallic artifact likely cycle of prior ablation procedures The gallbladder is distended. Small gallstones are noted. No definite wall thickening. Biliary system is non dilated. Pancreas enhances normally. Spleen is normal in size and enhancement. Stable appearance of indeterminate left adrenal nodule measuring 2.4 centimeters. Kidneys demonstrate normal size and enhancement, without hydronephrosis. Peritoneum and bowel: Stomach is unremarkable. There is a single small loop of jejunum within the left upper abdomen which demonstrates mild dilation and wall thickening. The adjacent bowel is unremarkable. There are scattered diverticula most prominent within the sigmoid colon. No evidence of diverticulitis. Fluid is noted extending into the distal colon. Moderate amount of ascites. Nodes and vessels: No retroperitoneal or mesenteric adenopathy by size criteria. Aorta and inferior vena cava are normal in size. Again noted is recanalization of the periumbilical vein which is diffusely distended, grossly unchanged in size and appearance. Enlargement of the portal vein measuring 2.3 centimeters. The portal, superior mesenteric, and splenic veins appear patent. Miscellaneous: Diffuse soft tissue anasarca. Bilateral gynecomastia. PELVIS: Genitourinary: Bladder wall thickness is normal. Miscellaneous: Bilateral fat containing inguinal hernias. Bones: No suspicious bony lesions. Subacute to chronic left-sided anterolateral rib fractures of the 7th through 10th ribs. No vertebral body compression fractures. IMPRESSION: Small dilated loop of jejunum with mild wall thickening within the left upper abdomen is nonspecific but may represent cycle of enteritis. There is fluid noted extending into the distal colon consistent with history of diarrhea. Moderate amount of ascites and diffuse anasarca. Cirrhotic morphology of the liver. Recanalization of the periumbilical vein and enlargement of the portal vein suggestive of portal hypertension. Cholelithiasis. Stable left adrenal nodule. Recommend attention on follow-up. Dictated by: Aakash Pena D.O. on 02/09/2021 at 15:58 Approved by: Aakash Pena D.O. on 02/09/2021 at 16:16 CT scan - head: Radiologist's Impression: Juan Carlos Guzmán Madelin 65 M [address] [id number] Scan ReportSigned Patient: Juan Carlos Guzmán AMR#: [id number]: 1955cct:[id number]/Sex: 65 / MDate of Service: 02/09/21Loc: EDAccession Number: [id number] Procedure: CT head/brain wo con Ordering Provider: Sharri Davis D.O. PROCEDURE: CT HEAD/BRAIN WO CON INDICATIONS: altered mental status TECHNIQUE: Noncontrast 4.5 mm thick angled axial sections acquired from the foramen magnum to the vertex, with coronal and sagittal reformats. For radiation dose reduction, the following was used: automated exposure control, adjustment of mA and/or kV according to patient size. COMPARISON: [facility], CT, CT HEAD/BRAIN WO CON, 12/10/2020, 15:13. [facility], CT, CT HEAD/BRAIN WO CON, 01/12/2021, 15:17. FINDINGS: Image quality: Excellent. CSF spaces: Basal cisterns are patent. No extra-axial fluid collections. Ventricles are normal in size and shape. Brain: No midline shift. No intracranial masses or hemorrhage. Mild perive ntricular and deep white matter hypoattenuation consistent with microvascular ischemic changes. This is similar to prior exams. Bustillos-white matter interface is normal. Vascular calcifications within the proximal intracranial carotid arteries. Skull and face: Calvarium and visualized facial bones are intact, without suspicious lesions. Sinuses: Visualized sinuses and mastoids are clear. IMPRESSION: Stable exam without evidence of an acute intracranial abnormality. Dictated by: Aakash Pena D.O. on 02/09/2021 at 14:10 Approved by: Aakash Pena D.O. on 02/09/2021 at 14:13 Chest x-ray: Radiologist's Impression: [address] [id number] ReportSigned Patient: Juan Carlos Guzmán AMR#: [id number]: 7Acct:[id number]/Sex: 65 / MDate of Service: 02/09/21Loc: EDAccession Number: [id number] Procedure: XR chest 1V Ordering Provider: Sharri Davis D.O. PROCEDURE: XR CHEST 1V INDICATIONS: altered mental statu TECHNIQUE: One view of the chest was acquired. COMPARISON: [facility], CR, XR CHEST 1V, 01/12/2021, 16:28. FINDINGS: Surgical changes and devices: None. Lungs and pleura: Stable elevation of the right hemidiaphragm with adjacent atelectasis/scarring. No focal consolidation, pneumothorax, or pleural effusion. Mediastinum: Mediastinal contours appear normal. Heart size is normal. Bones and chest wall: No suspicious bony lesions. Overlying soft tissues appear unremarkable. Calcifications along the lateral aspects of the neck likely representing carotid vascular calcifications. IMPRESSION: No evidence of an acute cardiopulmonary abnormality. Dictated by: Aakash Pena D.O. on 02/09/2021 at 14:07 Approved by: Aakash Pena D.O. on 02/09/2021 at 14:08 ECG Data Attestation: I personally reviewed and interpreted this ECG as follows: Interpretation: Sinus rhythm rate of 77 ID 142 QRS 100 QTC 466. No acute ST changes appreciated. MDM Narrative Medical decision making narrative: Is a 65-year-old male who is brought in for nausea and vomiting and diarrhea last night which has since improved. Patient's states that he is more confused but after further discussion he she states he can sometimes wax and wane at this level typically she was concerned that he may be coming is supple opacity from his cirrhosis. His ammonia today's in normal range. His mental status is fairly appropriate and he is able to answer questions without much issue here in the department. Patient does not have any other clear signs of infection, sepsis, patient has elevation in his bilirubin and liver enzymes but been this high before in the past. Patient's brought him in because she was concerned and at this time his labs and examination did not reflect that he needs to be admitted but was encouraged to continue his lactulose and reestablish with his hepatology team [place] he has not seen in the last year. Patient head CT was negative with no signs of bleeding. Patient also has not had any examination findings consistent with stroke nor does the history shared with myself by him or his consistent with this. They were encouraged to return if there is any concern for worsening mental status or elevation of his ammonia for hepatic encephalopathy at home. Discharge Plan Departure Patient Disposition: Home Clinical Impression: Enteritis, Cirrhosis Activity Restrictions/Additional Instructions: Follow up with your physician in the next 24-48 hours for recheck. I do recommend reestablishing with your hepatology or liver team in [place] for follow-up. Your labs today do reflect an increase in your liver but your ammonia is in normal range. CT imaging does show some changes consistent with enteritis which can cause diarrhea but no other clear infectious changes. Please return if any new or worsening symptoms, fevers, increasing your altered mental status, persistent vomiting black or bloody stools, new abdominal, back flank pain or any new chest pain or shortness of breath or passing out. Prescriptions: No Action albuterol sulfate 90 mcg/actuation aerosol powdr breath activated 2 inhalation INHALATION Q4-6H PRN (Reason: shortness of breath or wheezing) Qty: 1 RF: 6 bumetanide 2 mg Tablet 2 mg PO DAILY RF: 0 calcium carbonate 500 mg calcium (1,250 mg) Tablet,Chewable 500 mg PO DAILY PRN (Reason: (Drug) Ingestion) RF: 0 lactulose 20 gram/30 mL Solution 40 gm PO BID Qty: 30 RF: 0 Referrals: Pancho Payan MD [Primary Care Provider] -
--- NOTE | 2021-02-09 16:08 | DI.CT.S_ITS ---
PROCEDURE: CT ABDOMEN PELVIS W CON INDICATIONS: vomiting, diarrhea, cirrhosis hx, confusion TECHNIQUE: After the administration of intravenous contrast, 5 mm thick sections acquired from the diaphragm to the symphysis. 5 mm coronal and sagittal reformats were acquired. For radiation dose reduction, the following was used: automated exposure control, adjustment of mA and/or kV according to patient size. COMPARISON: [facility], CT, CT CHEST ABD PEL WO CON, 12/10/2020, 15:13. [facility], CT, CT ABDOMEN WO/W CON, 07/03/2020, 10:42. [facility], CT, CT ABDOMEN PELVIS W CON, 11/22/2020, 11:09. FINDINGS: Image quality: Excellent. ABDOMEN: Lung bases: Right greater than left basilar atelectasis. Heart size within normal limits. There is marked coronary vascular calcifications. Aortic valvular calcifications. Inferior esophagus is unremarkable. Solid organs: Cirrhotic morphology of the liver is again identified. Multiple regions of metallic artifact likely cycle of prior ablation procedures The gallbladder is distended. Small gallstones are noted. No definite wall thickening. Biliary system is non dilated. Pancreas enhances normally. Spleen is normal in size and enhancement. Stable appearance of indeterminate left adrenal nodule measuring 2.4 centimeters. Kidneys demonstrate normal size and enhancement, without hydronephrosis. Peritoneum and bowel: Stomach is unremarkable. There is a single small loop of jejunum within the left upper abdomen which demonstrates mild dilation and wall thickening. The adjacent bowel is unremarkable. There are scattered diverticula most prominent within the sigmoid colon. No evidence of diverticulitis. Fluid is noted extending into the distal colon. Moderate amount of ascites. Nodes and vessels: No retroperitoneal or mesenteric adenopathy by size criteria. Aorta and inferior vena cava are normal in size. Again noted is recanalization of the periumbilical vein which is diffusely distended, grossly unchanged in size and appearance. Enlargement of the portal vein measuring 2.3 centimeters. The portal, superior mesenteric, and splenic veins appear patent. Miscellaneous: Diffuse soft tissue anasarca. Bilateral gynecomastia. PELVIS: Genitourinary: Bladder wall thickness is normal. Miscellaneous: Bilateral fat containing inguinal hernias. Bones: No suspicious bony lesions. Subacute to chronic left-sided anterolateral rib fractures of the 7th through 10th ribs. No vertebral body compression fractures. IMPRESSION: Small dilated loop of jejunum with mild wall thickening within the left upper abdomen is nonspecific but may represent cycle of enteritis. There is fluid noted extending into the distal colon consistent with history of diarrhea. Moderate amount of ascites and diffuse anasarca. Cirrhotic morphology of the liver. Recanalization of the periumbilical vein and enlargement of the portal vein suggestive of portal hypertension. Cholelithiasis. Stable left adrenal nodule. Recommend attention on follow-up. Dictated by: Aakash Pena D.O. on 02/09/2021 at 15:58 Approved by: Aakash Pena D.O. on 02/09/2021 at 16:16
[2021-02-09 17:11] LABS: COVID19 - ADMIT (NP swab/PCR) Negative (Negative)
[2021-02-09 18:31] LABS: Bacteria Urine None Seen; WBC Urine None Seen (0-5/HPF)
[2021-02-09 18:33] LABS: Appearance Urine UA CLEAR; Bilirubin Urine UA NEGATIVE (NEGATIVE); Color Urine UA YELLOW; Glucose Urine UA TRACE g/dL (Negative); Ketones Urine UA NEGATIVE (NEGATIVE); Leukocyte Esterase Urine UA NEGATIVE (NEGATIVE); Nitrite Urine UA NEGATIVE (Negative); Occult Blood Urine UA 3+ (Negative); Protein Urine UA NEGATIVE (Negative); Specific Gravity Urine UA 1.015 (1.000-1.035); Urobilinogen Urine UA 0.2 E.U./dL (0.2); pH Urine UA 5.5 (4.5-8.0)
[2021-02-09 18:55] LABS: Culture Indicated Urine Cult Not Indicated; RBC Urine 10-30/HPF (0-5/HPF)
[2021-02-09 19:27] VITALS: BP 107/60; PULSE 73; RESP 16; O2SAT 98
== END 2021-02-09 19:30 | disposition home or self-care (01) ==
PROVIDERS: Emergency Provider Emergency Medicine; PCP Internal Medicine
DX: K52.9 Noninfective gastroenteritis and colitis, unspecified (principal); K74.60 Unspecified cirrhosis of liver; R11.2 Nausea with vomiting, unspecified; R41.0 Disorientation, unspecified; Z20.822 Contact with and (suspected) exposure to COVID-19
CPT/HCPCS: 36415; 70450; 71045; 74177; 80053; 81001; 82140; 83690; 85025; 85610; 85730; 87635; 93005; 99284; C9803; Q9967

== ENCOUNTER 2021-03-10 22:09 | Inpatient (IN) | payer MEDICARE, MEDICAID, SELFPAY ==
[2020-12-16 10:24] VITALS: RESP 12
[2020-12-16 10:41] VITALS: PULSE 72; RESP 13; O2SAT 97
[2021-01-12 18:17] VITALS: BMI 39.7
[2021-03-10] VITALS (9 sets, daily range): BP systolic 102–123; BP diastolic 51–60; PULSE 77–89; RESP 20–25; TEMP 37.3; O2SAT 85–99
--- NOTE | 2021-03-10 22:14 | DI.CT.S_ITS ---
PROCEDURE: CT HEAD/BRAIN WO CON INDICATIONS: altered mental status TECHNIQUE: Noncontrast 4.5 mm thick angled axial sections acquired from the foramen magnum to the vertex, with coronal and sagittal reformats. For radiation dose reduction, the following was used: automated exposure control, adjustment of mA and/or kV according to patient size. COMPARISON: [facility], CT, CT CHEST ABD PEL W CON, 03/11/2021, 1:05. [facility], CT, CT HEAD/BRAIN WO CON, 02/09/2021, 14:46. FINDINGS: Image quality: Excellent. CSF spaces: Basal cisterns are patent. No extra-axial fluid collections. The ventricles are symmetric in size and shape. Brain: No intracranial bleeds or masses. Interval deep white matter infarct in the posterior right frontal lobe since the study of 02/09/2021, now appearing chronic. No acute infarct identified. There is cerebral volume loss for age, with resultant ventricular and sulcal prominence. There are periventricular and deep white matter chronic small vessel ischemic changes. There is intracranial internal carotid artery atherosclerosis. Skull and face: Calvarium and visualized facial bones appear intact, without suspicious lesions. Sinuses: Visualized sinuses and mastoids are clear. IMPRESSION: 1. 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 2. No evidence of acute stroke, hemorrhage, or mass. Comment: Final report is concordant with preliminary interpretation provided by [facility]. Dictated by: Earnest Mccabe M.D. on 03/11/2021 at 7:52 Approved by: Earnest Mccabe M.D. on 03/11/2021 at 7:58
[2021-03-10 22:35] LABS: Add Manual Diff / Slide Review NO; Basophils Absolute Auto 0 /uL (0-100); Basophils Percent Auto 0.3 % (0-2); Eosinophils Absolute Auto 0 /uL (0-450); Eosinophils Percent Auto 0.2 % (2-4); Hematocrit 28.8 % (41-53); Lymphocytes Absolute Auto 400 /uL (1100-4500); Lymphocytes Percent Auto 2.7 % (25-40); Mean Corpuscular HGB Conc 34.6 % (30-36); Mean Corpuscular Hemoglobin 33.2 PG (26-34); Mean Corpuscular Volume 95.9 fL (80-100); Monocytes Absolute Auto 1100 /uL (0-900); Monocytes Percent Auto 7.6 % (3-14); Neutrophils Absolute Auto 12700 /uL (1500-7000); Neutrophils Percent Auto 89.2 % (50-75); Platelet Count 58 X10^3/uL (150-400); Red Blood Cell Count 3.01 X10^6/uL (4.5-5.9); Red Cell Distribution Width 15.8 % (11.6-14.8); White Blood Cell Count 14.3 X10^3/uL (4.5-11.0)
[2021-03-10] MEDS: ONDANSETRON 4 MG/2 ML INJ IV (22:42)
[2021-03-10] MEDS: MORPHINE 4 MG/ML INJ IM (22:42)
[2021-03-10 22:43] LABS: INR 1.6 (0.9-1.3); Prothrombin Time 17.9 SECONDS (10.1-12.7)
[2021-03-10] MEDS: SODIUM CHLORIDE 0.9% 1,000 ML 150 ML IV (22:43)
[2021-03-10 22:46] LABS: Ammonia (NH3) 69 umol/L (9-30); PTT Partial Thromboplastin Tim 38 SECONDS (26.4-36.2)
[2021-03-10 22:48] LABS: Acetaminophen < 10 ug/mL (10-30); Alanine Aminotransferase 36 IU/L (<50); Albumin 2.9 g/dL (3.5-5.0); Albumin Globulin Ratio 0.7 (1.0-2.8); Alkaline Phosphatase 148 U/L (38-126); Aspartate Aminotransferase 65 IU/L (17-59); BUN Creatinine Ratio 21.6 (6-22); Bilirubin Total 5.6 mg/dL (0.2-1.3); Blood Urea Nitrogen 42 mg/dL (9-20); Calcium 9.3 mg/dL (8.4-10.2); Carbon Dioxide 28 mmol/L (22-32); Chloride 97 mmol/L (98-107); Creatine Kinase 67 U/L (55-170); Estimated Glomerular Filt Rate 35.1 mL/min (>60); Ethanol (ETOH) < 10 mg/dL; Globulin 4.1 g/dL (1.7-4.1); Glucose 145 mg/dL (80-110); HEMOLYSIS < 15 (0-50); Potassium 3.9 mmol/L (3.4-5.1); Salicylate < 1.0 mg/dL (<20); Sodium 133 mmol/L (137-145)
[2021-03-10 22:59] LABS: Troponin I 0.015 ng/mL (0.01-0.034)
[2021-03-10 23:03] LABS: Procalcitonin 0.34 ng/mL (<0.5)
[2021-03-10 23:04] LABS: Lactate (Lactic Acid) 2.7 mmol/L (0.7-2.1)
[2021-03-10 23:17] LABS: Appearance Urine UA CLEAR; Bilirubin Urine UA NEGATIVE (NEGATIVE); Color Urine UA YELLOW; Glucose Urine UA NEGATIVE (Negative); Ketones Urine UA NEGATIVE (NEGATIVE); Leukocyte Esterase Urine UA NEGATIVE (NEGATIVE); Nitrite Urine UA NEGATIVE (Negative); Occult Blood Urine UA 3+ (Negative); Protein Urine UA TRACE (Negative); Specific Gravity Urine UA 1.015 (1.000-1.035); Urobilinogen Urine UA 0.2 E.U./dL (0.2); pH Urine UA 7.5 (4.5-8.0)
[2021-03-10 23:20] LABS: UR Morphine/Opiate cutoff 300 Negative (Negative); Ur Creatinine Normal (Normal); Ur Specific Gravity Normal (Normal); Urine Amphetamines Negative (Negative); Urine Barbiturates Negative (Negative); Urine Benzodiazepines Negative (Negative); Urine Cocaine Negative (Negative); Urine MDMA Negative (Negative); Urine Methadone Negative (Negative); Urine Methamphetamines Negative (Negative); Urine Oxycodone Negative (Negative); Urine Phencyclidine Negative (Negative); Urine Tetrahydrocannabinol Positive (Negative); Urine Tricyclic Antidepressant Negative (Negative); Urine pH Normal (Normal)
[2021-03-10 23:23] LABS: Bacteria Urine Occasional (0-1); Culture Indicated Urine Cult Not Indicated; RBC Urine 5-10/HPF (0-5/HPF); Squamous Epithelial Cell Urine 0-1 /HPF (0-5/HPF); WBC Urine 0-1/HPF (0-5/HPF)
--- NOTE | 2021-03-10 23:27 | DI.RAD.S_ITS ---
PROCEDURE: XR CHEST 1V INDICATIONS: altered mental status TECHNIQUE: One view of the chest was acquired. COMPARISON: [facility], CT, CT CHEST ABD PEL W CON, 03/11/2021, 1:05. [facility], CR, XR CHEST 1V, 02/09/2021, 14:47. FINDINGS: Surgical changes and devices: Metallic densities in the right upper quadrant region, corresponding to the liver on CT. Lungs and pleura: Elevation of right hemidiaphragm associated with right basilar atelectasis versus scarring. Mild pulmonary venous congestion. Mediastinum: Mediastinal contours appear normal. Cardiomegaly. Bones and chest wall: No suspicious bony lesions. Overlying soft tissues appear unremarkable. IMPRESSION: Cardiomegaly, mild pulmonary venous congestion. Right basilar atelectasis versus scarring. Comment: Final report is concordant with preliminary interpretation provided by [facility]. Dictated by: Earnest Mccabe M.D. on 03/11/2021 at 8:14 Approved by: Earnest Mccabe M.D. on 03/11/2021 at 8:17
[2021-03-10] MEDS: LORazepam 2 MG/ML INJ 1 MG IV (23:31)
[2021-03-10 23:41] LABS: Thyroid Stimulating Hormone 0.637 uIU/mL (0.47-4.68)
[2021-03-10 23:48] LABS: COVID19 - ADMIT (NP swab/PCR) Negative (Negative)
[2021-03-11] VITALS (37 sets, daily range): BP systolic 106–145; BP diastolic 56–70; PULSE 71–88; RESP 13–20; TEMP 36.1–36.6; O2SAT 84–99; BMI 35.1
[2021-03-11 00:29] LABS: Reflexed Lactate in 2 Hours Y
--- NOTE | 2021-03-11 00:56 | DI.CT.S_ITS ---
PROCEDURE: CT CHEST ABD PEL W CON INDICATIONS: confusion, fever, liver cancer TECHNIQUE: After the administration of intravenous contrast, 5 mm thick sections acquired from the lung apices to the symphysis. 5 mm coronal and sagittal reformats were performed, with additional 7 mm MIP reformats through the lungs. For radiation dose reduction, the following was used: automated exposure control, adjustment of mA and/or kV according to patient size. COMPARISON: [facility], CT, CT ABDOMEN PELVIS W CON, 02/09/2021, 16:21. FINDINGS: Image quality: Excellent. CHEST: Lungs and pleura: Minimal consolidation, posterior aspect of left upper lobe. Unchanged atelectasis in the extreme right lung base. No pleural effusions or pneumothorax. Central and peripheral airways appear patent and normal in caliber. Mediastinum: Heart size is normal. No pericardial effusion. Severe coronary artery calcifications. No mediastinal or hilar adenopathy by size criteria. Thoracic aorta and central pulmonary arteries are normal in size. Esophagus is normal in caliber. No hiatal hernia. Chest wall: No axillary or supraclavicular adenopathy by size criteria. Thyroid gland is unremarkable . ABDOMEN: Solid organs: Advanced changes of cirrhosis with a small shrunken nodular liver. Numerous stable metallic densities in the liver. Recanalization of the umbilical vein, which is quite large. Gallbladder is distended with multiple tiny gallstones noted. There is no gallbladder wall thickening.. Biliary system is non dilated. Pancreas enhances normally. Splenomegaly, as before. Stable 1.9 cm left adrenal nodule. Kidneys demonstrate normal size and enhancement, without hydronephrosis. Peritoneum and bowel: Bowel loops demonstrate normal wall thickness and caliber. Large recanalized umbilical vein which results in large right abdominal and pelvic varicosities. Mild perihepatic ascites, diminished compared to the previous study. Nodes and vessels: No retroperitoneal or mesenteric adenopathy by size criteria. Aorta and inferior vena cava are normal in size. Miscellaneous: No ventral hernias. Anasarca. PELVIS: Genitourinary: A Lopez catheter is present in the bladder, which is decompressed. Miscellaneous: No inguinal hernias or adenopathy. Bones: No suspicious bony lesions. No vertebral body compression fractures. IMPRESSION: 1. Cirrhosis. 2. Splenomegaly, recanalized umbilical vein, large abdominal varicosities are consistent with portal venous hypertension. 3. Interval decrease in ascites, now mild. 4. Severe coronary artery calcifications. 5. Small left upper lobe infiltrate, atelectasis in the extreme right lung base. 6. Unchanged left adrenal nodule. 7. Cholelithiasis. Comment: Final report is concordant with preliminary interpretation provided by [facility]. Dictated by: Earnest Mccabe M.D. on 03/11/2021 at 8:43 Approved by: Earnest Mccabe M.D. on 03/11/2021 at 8:48
[2021-03-11] MEDS: LORazepam 2 MG/ML INJ 0.5 MG IV (01:04)
[2021-03-11 01:09] LABS: Lactate 2HR (Lactic Acid Rflx) 2.3 mmol/L (0.7-2.1)
[2021-03-11 01:50] LABS: Magnesium 2.2 mg/dL (1.6-2.3)
--- NOTE | 2021-03-11 02:39 | PM.HP.1 ---
History of Present Illness History of Present Illness Date Patient Seen: 03/11/21 Time Patient Seen: 02:15 Chief complaint: Altered LOC Narrative: Patient is a 65-year-old male Juan Carlos Guzmán whose family brought him in to the ED for altered mental status and history of multiple hospitalizations for acute hepatic encephalopathy and cirrhosis as result of liver cancer and hepatitis C which have both resolved with treatment. Patient has been hospitalized for hepatic encephalopathy on 11/22, 12/10, and 01/12/2021. In the ED the patients daughter provided information. She stated that the patient may have missed a dose or 2 of lactulose. She has had growing concern over increased confusion although she found him not as confused as prior encephalopathy events. She brought her father in because she was concerned that he had nausea and vomiting overnight as well as diarrhea frequently. She states that he would walk around the room and have diarrhea, and did not seem to notice or care. She states he has also been answering questions inappropriately. She states he has not had any fevers or chills that she is aware of. In the ED the patient denied chest pain, abdominal pain, back or flank pain. No headaches or vision changes, or fevers. He had no nausea or vomiting in the department. He has had diarrhea but no samples had been obtained. Stool was absent of melena or bright red blood. Patient denied issues with urination such as frequency, dysuria urgency. Patient has not had any new medication changes recently. Upon admit patient's vital signs in the ED temp 99.2?, BP was 119/60, HR 88, RR 25, O2 saturation 90% on room air. Patient seen in the ED he was somnolent confused and predominantly verbally unresponsive. Patient was moaning quite loudly when I arrived in the ED department, when asked if he was in pain patient verbalized no, but was unable to communicate with me any further or answer any questions. Patient had been given a dose of Ativan for agitation. Was unable to obtain HPI. Patient's physical presentation was that of profound icterus and anasarca. Patient's with leukocytosis WBC 14.3 with Neut#12,700, patient's chronic thrombocytopenia HGB 10, HCT 28, platelets of 58. Patient with mild acute kidney injury with a sodium 133, chloride 97, BUN 42, creatinine 1.94 elevated and GRF 35.1 decreased from last hospitalization, glucose 145. Patient has an increased bili 5.6, consistent albumin at 2.9, lactate 2.7, and ammonia 69, patient's troponin 0.015, troponin within normal limits, U/A is negative, and urine drug screen positive for THC. Head CT was unremarkable showed no signs subdural hematoma, CT of abd /pelvis showed possible enteritis, moderate amount of ascites and diffuse anasarca, signs of portal hypertension and cholelithiasis. Patient History Medical History Anasarca Ascites Asthma Elevated brain natriuretic peptide (BNP) level Hepatitis C Hypertension Liver cancer Liver cirrhosis Surgical History History of surgery of liver Family & Social History Family History Father Trauma Mother Sjogrens syndrome Sister No significant medical problems Social History: household members spouse Safety & Behavioral: Feels Safe in Current Yes Environment Been Physically Hurt or No Threatened By a Person Tobacco & Substance use: Tobacco type cigarettes Smoking Status Former smoker alcohol intake former alcohol intake frequency 0-2 drinks per day Substance Use Type marijuana Meds Home Medications and Allergies Home Medications Medication Instructions Recorded Confirmed Type albuterol sulfate 90 mcg/actuation 2 inhalation INHALATION Q4-6H PRN 01/23/20 03/10/21 Rx breath activated powder inhaler #1 each bumetanide 4 mg PO BID 11/22/20 03/10/21 History lactulose 40 gm PO BID #30 ml 12/19/20 03/10/21 Rx spironolactone 100 mg PO DAILY 03/10/21 03/10/21 History Allergies Allergy/AdvReac Type Severity Reaction Status Date / Time No Known Drug Allergies Allergy Verified 03/10/21 22:34 Review of Systems Review of Systems ROS: Yes unobtainable due to mental status Exam Vital Signs (past 8 hours): - 03/10/21 22:16 03/10/21 22:17 03/10/21 22:20 Temperature 99.2 F Pulse Rate 88 89 77 Respiratory Rate 20 Blood Pressure 121/57 L 112/53 L Pulse Oximetry 98 98 99 03/10/21 22:46 03/10/21 23:00 03/10/21 23:22 Temperature Pulse Rate 87 85 89 Respiratory Rate 25 H Blood Pressure 102/51 L 107/56 L Pulse Oximetry 97 95 98 03/10/21 23:26 03/10/21 23:30 03/10/21 23:45 Temperature Pulse Rate 86 85 87 Respiratory Rate Blood Pressure 120/57 L 109/57 L 123/60 Pulse Oximetry 98 96 85 L 03/11/21 00:00 03/11/21 00:15 03/11/21 00:30 Temperature Pulse Rate 88 86 88 Respiratory Rate Blood Pressure 119/60 123/59 L 113/56 L Pulse Oximetry 90 L 95 95 03/11/21 00:45 03/11/21 00:55 03/11/21 01:00 Temperature Pulse Rate 87 88 Respiratory Rate Blood Pressure 119/58 L 127/60 Pulse Oximetry 94 03/11/21 01:10 03/11/21 01:15 03/11/21 01:30 Temperature Pulse Rate 85 85 85 Respiratory Rate Blood Pressure Pulse Oximetry 94 93 95 03/11/21 01:45 03/11/21 02:00 Temperature Pulse Rate 83 77 Respiratory Rate Blood Pressure Pulse Oximetry 95 84 L Oxygen Delivery Method Room Air Narrative Exam Narrative: General: Patient is a obese somnolent male in no distress at this time. HEENT: Normocephalic, atraumatic, oral pharynx is clear. Neck is supple and symmetric, trachea is midline, no adenopathy, no thyroid enlargement, nontender, no masses palpated. Negative for JVD Lungs: Auscultation of all lung squires are clear without adventitious sounds, wheezes, rhonchi, or rales. Cardio: regular rate and rhythm without murmur, rubs, or gallops, no carotid bruit, no cardiac pulsations present. Abdomen: Soft nontender, possible distension -I do not know baseline habitus, negative for organomegaly, or masses. Bowel sounds are present in all 4 quadrants without guarding or rebound, no CVA tenderness. Musculoskeletal: Muscle strength and tone are equal within normal limits, no deformity, crepitus, effusions, cyanosis, clubbing or edema present. Full range of motion intact radial and pedal pulses are normal. Skin: Icterus, with diffuse wounds with scarring and scabs present to forearms and legs. Neuro: The patient was moaning loudly until I entered the room he did not open his eyes or acknowledge that I was present only managed 1 answer regarding pain, and then remained nonresponsive for the rest of my exam. When I left the room the patient commenced and moaning loudly again. sensation to touch appears to be intact. Psych: Patient appears poorly kept & groomed. Objective Labs Result Diagrams: 03/10/21 22:21 03/10/21 22:21 Labs: Laboratory Results - last 24 hr 03/10/21 03/10/21 03/10/21 22:21 22:21 22:21 WBC 14.3 H RBC 3.01 L Hgb 10.0 L Hct 28.8 L MCV 95.9 MCH 33.2 MCHC 34.6 RDW 15.8 H Plt Count 58 L Neut % (Auto) 89.2 H Lymph % (Auto) 2.7 L [place] % (Auto) 7.6 Eos % (Auto) 0.2 L Baso % (Auto) 0.3 Neut # (Auto) 68886 H Lymph # (Auto) 400 L [place] # (Auto) 1100 H Eos # (Auto) 0 Baso # (Auto) 0 PT 17.9 H INR 1.6 H APTT 38 H Sodium 133 L Potassium 3.9 Chloride 97 L Carbon Dioxide 28 BUN 42 H Creatinine 1.94 H Estimated GFR 35.1 L BUN/Creatinine Ratio 21.6 Glucose 145 H Lactate Calcium 9.3 Magnesium Total Bilirubin 5.6 H AST 65 H ALT 36 Alkaline Phosphatase 148 H Ammonia Total Creatine Kinase 67 CK-MB (CK-2) TNP CK-MB (CK-2) Rel Index TNP Troponin I 0.015 Total Protein 7.0 Albumin 2.9 L Globulin 4.1 Albumin/Globulin Ratio 0.7 L Procalcitonin 0.34 TSH Urine Color Urine Appearance Urine pH Ur Specific [place] Urine Protein Urine Glucose (UA) Urine Ketones Urine Occult Blood Urine Nitrate Urine Bilirubin Urine Urobilinogen Ur Leukocyte Esterase Urine RBC Urine WBC Ur Squamous Epith Cells Urine Bacteria Ur Culture Indicated? Salicylates < 1.0 U Opiates 300ng/mL cut Ur Oxycodone Screen Urine Methadone Screen Acetaminophen < 10 L Ur Barbiturates Screen U Tricyclic Antidepress Ur Phencyclidine Scrn Ur Amphetamines Screen U Methamphetamines Scrn Ur MDMA Scrn (Ecstasy) U Benzodiazepines Scrn Urine Cocaine Screen U Marijuana (THC) Screen Ethyl Alcohol < 10 SARS-CoV-2 (PCR) 03/10/21 03/10/21 03/10/21 22:21 22:21 22:21 WBC RBC Hgb Hct MCV MCH MCHC RDW Plt Count Neut % (Auto) Lymph % (Auto) [place] % (Auto) Eos % (Auto) Baso % (Auto) Neut # (Auto) Lymph # (Auto) [place] # (Auto) Eos # (Auto) Baso # (Auto) PT INR APTT Sodium Potassium Chloride Carbon Dioxide BUN Creatinine Estimated GFR BUN/Creatinine Ratio Glucose Lactate 2.7 H Calcium Magnesium Total Bilirubin AST ALT Alkaline Phosphatase Ammonia 69 H Total Creatine Kinase CK-MB (CK-2) CK-MB (CK-2) Rel Index Troponin I Total Protein Albumin Globulin Albumin/Globulin Ratio Procalcitonin TSH 0.637 Urine Color Urine Appearance Urine pH Ur Specific [place] Urine Protein Urine Glucose (UA) Urine Ketones Urine Occult Blood Urine Nitrate Urine Bilirubin Urine Urobilinogen Ur Leukocyte Esterase Urine RBC Urine WBC Ur Squamous Epith Cells Urine Bacteria Ur Culture Indicated? Salicylates U Opiates 300ng/mL cut Ur Oxycodone Screen Urine Methadone Screen Acetaminophen Ur Barbiturates Screen U Tricyclic Antidepress Ur Phencyclidine Scrn Ur Amphetamines Screen U Methamphetamines Scrn Ur MDMA Scrn (Ecstasy) U Benzodiazepines Scrn Urine Cocaine Screen U Marijuana (THC) Screen Ethyl Alcohol SARS-CoV-2 (PCR) 03/10/21 03/10/21 03/10/21 22:21 22:54 23:07 WBC RBC Hgb Hct MCV MCH MCHC RDW Plt Count Neut % (Auto) Lymph % (Auto) [place] % (Auto) Eos % (Auto) Baso % (Auto) Neut # (Auto) Lymph # (Auto) [place] # (Auto) Eos # (Auto) Baso # (Auto) PT INR APTT Sodium Potassium Chloride Carbon Dioxide BUN Creatinine Estimated GFR BUN/Creatinine Ratio Glucose Lactate Calcium Magnesium 2.2 Total Bilirubin AST ALT Alkaline Phosphatase Ammonia Total Creatine Kinase CK-MB (CK-2) CK-MB (CK-2) Rel Index Troponin I Total Protein Albumin Globulin Albumin/Globulin Ratio Procalcitonin TSH Urine Color Yellow Urine Appearance Clear Urine pH 7.5 Ur Specific [place] 1.015 Urine Protein Trace H Urine Glucose (UA) Negative Urine Ketones Negative Urine Occult Blood 3+ H Urine Nitrate Negative Urine Bilirubin Negative Urine Urobilinogen 0.2 Ur Leukocyte Esterase Negative Urine RBC 5-10/hpf H Urine WBC 0-1/hpf Ur Squamous Epith Cells 0-1 /hpf Urine Bacteria Occasional (0-1) Ur Culture Indicated? Cult not indicated Salicylates U Opiates 300ng/mL cut Ur Oxycodone Screen Urine Methadone Screen Acetaminophen Ur Barbiturates Screen U Tricyclic Antidepress Ur Phencyclidine Scrn Ur Amphetamines Screen U Methamphetamines Scrn Ur MDMA Scrn (Ecstasy) U Benzodiazepines Scrn Urine Cocaine Screen U Marijuana (THC) Screen Ethyl Alcohol SARS-CoV-2 (PCR) Negative 03/10/21 03/11/21 23:07 00:50 WBC RBC Hgb Hct MCV MCH MCHC RDW Plt Count Neut % (Auto) Lymph % (Auto) [place] % (Auto) Eos % (Auto) Baso % (Auto) Neut # (Auto) Lymph # (Auto) [place] # (Auto) Eos # (Auto) Baso # (Auto) PT INR APTT Sodium Potassium Chloride Carbon Dioxide BUN Creatinine Estimated GFR BUN/Creatinine Ratio Glucose Lactate 2.3 H Calcium Magnesium Total Bilirubin AST ALT Alkaline Phosphatase Ammonia Total Creatine Kinase CK-MB (CK-2) CK-MB (CK-2) Rel Index Troponin I Total Protein Albumin Globulin Albumin/Globulin Ratio Procalcitonin TSH Urine Color Urine Appearance Urine pH Ur Specific [place] Urine Protein Urine Glucose (UA) Urine Ketones Urine Occult Blood Urine Nitrate Urine Bilirubin Urine Urobilinogen Ur Leukocyte Esterase Urine RBC Urine WBC Ur Squamous Epith Cells Urine Bacteria Ur Culture Indicated? Salicylates U Opiates 300ng/mL cut Negative Ur Oxycodone Screen Negative Urine Methadone Screen Negative Acetaminophen Ur Barbiturates Screen Negative U Tricyclic Antidepress Negative Ur Phencyclidine Scrn Negative Ur Amphetamines Screen Negative U Methamphetamines Scrn Negative Ur MDMA Scrn (Ecstasy) Negative U Benzodiazepines Scrn Negative Urine Cocaine Screen Negative U Marijuana (THC) Screen Positive H Ethyl Alcohol SARS-CoV-2 (PCR) Assessment & Plan Assessment & Plan narrative: This patient requires acute care inpatient hospital management for acute hepatic encephalopathy with LALITHA and leukocytosis, after failing outpatient management. The patient is at much higher risk for medical and surgical complications because of his history of multiple hospitalizations for acute hepatic encephalopathy and cirrhosis as result of liver cancer and hepatitis C both resolved. These factors increase the difficulty and complexity of medical and surgical interventions and increases the chances of poor outcomes such as morbidity and mortality. 1. Acute hepatic encephalopathy, Moderate, present on admission, sepsis (infectious) as evidenced by leukocytosis, acute, present on admission, in the setting of history of hepatocellular cancer and hepatitis-C (Resolved), resulting in chronic cirrhosis with ascites and gradeIII thrombocytopenia, acute on chronic, present on admission -patient presenting with acute confusion/somnolence GCS :5 which appears due to decompensated cirrhosis, ammonia level 69, AST 65, alk-phos 148, likely patient has been noncompliant in his lactulose and exacerbated by an infectious process etiology unknown at this time- WBC 14.3, Neut#12,700.Sofa:9 - bilirubin 5.6, this is significant increase compared to bili of 3.2 on 02/09/2021, and additionally he is more thrombocytopenic HGB 10, HCT 28, decrease in platelets 58., however INR 1.6 is stable relative to previous values, mild hyponatremia sodium 133. -monitor & rule out patient for complications like variceal hemorrhage, ascites, spontaneous bacterial peritonitis, hepatocellular carcinoma, hepatic renal syndrome, or hepatopulmonary syndrome, septic shock, subdural hematoma, renal failure associated with possible underlying liver diseases. CTA/Pelvis:Small dilated loop of jejunum with mild wall thickening within the left upper abdomen is nonspecific but may represent cycle of enteritis. There is fluid noted extending into the distal colon consistent with history of diarrhea.Moderate amount of ascites and diffuse anasarca. Cirrhotic morphology of the liver. Recanalization of the periumbilical vein and enlargement of the portal vein suggestive of portal hypertension. Cholelithiasis. Stable left adrenal nodule. -ultrasound-ordered to determine if enough fluid pocket present for U/S guided diagnostic paracentesis, to rule out SBP -blood culture x2 sent through ED -urinalysis -procalcitonin -NPO- lactulose 20 g MI Q4Hrs change to oral once pt is alert and airway is protected, ceftriaxone 2 g Q24 hours broad-spectrum coverage until cultures come back, Haldol for agitation, gentle hydration LR at 84cc/hr suspect dehydration as per patient's history, ongoing assessment determine if Lasix is appropriate. -Admit to tele, vital signs q.4 hours, orthostatics q.a.m., call for respiratory rate> 30, increasing O2 requirements, systolic blood pressure <95, urinary output<100cc/hr, activity bed rest, fall precautions, daily weights, strict I&Os, O2 as needed to maintain a SaO2>92%. -Labs ordered: Daily CBC, CMP, BNP, amylase, lipase, MRSA, urine sodium procalcitonin, lipids, lactate, lactate dehydrogen, mag, troponin x3 to assess trend -patient had been a pt of Dr. Johann Tamayo at [facility], Fix has since left [facility] and patient needed to establish with new provider at the liver clinic -AFP pen, per records at [facility], patient's last AFP was 3.1 2.Acute Kidney Injury in the setting of CKD stage III, acute on chronic, present on admission -Patients creatinine 1.94 mildly increased from 01/15/21: 1.19. & 02/09/21: 1.35 egfr 35.1 decreased 01/15/21: >60 & 02/09/21: 53.4 Bili 5.6 increased 01/15/21: 1.5 & 02/09/21 3.2 AST 65 increased 01/15/21: 62 & 02/09/21:76 ALT 36 WNL unchanged Alk Phos 148 Varied 01/15/21: 137 & 02/09/21: 153 Albumin 2.9 stable 01/15/21: 2.2 & 02/09/21: 2.9 -patient currently NPO holding patient's bumetanide and spirolactone. 3. Obesity as evidence by BMI 35.1, acute on chronic, present on admission -consideration will be given to dietary counseling. Code status: Full code Surrogate decision maker: patient's spouse COVID PCR: Negative VTE/DVT prophylaxis: Contraindicated due to patient's thrombocytopenia Scores GCS Ricardo coma scale eye opening: To pressure Ricardo coma scale verbal response: Sounds [place] coma scale motor response: None [place] coma scale total score: 5 SOFA PaO2/FIO2: >=400 mmHg Platelets: < 100 Bilirubin: 2.0-5.9 mg/dL Hypotension: MAP >= 70 mmHg [place] Coma Scale: <6 Renal: Creatinine 1.2-1.9 mg/dL SOFA Score: 9 Quality MIPS - Admit I confirm the patient?s Advance Care Plan is present, Code status is documented, Surrogate decision maker is in patient?s record [If Yes, STOP here]: Yes
[2021-03-11] MEDS: cefTRIAXone 2,000 MG in SODIUM CHLORIDE 0.9% 100 ML 200 ML IV (02:46)
--- NOTE | 2021-03-11 02:50 | DI.US.S_ITS ---
PROCEDURE: US ABDOMEN LIMITED INDICATIONS: ruq stone on ct TECHNIQUE: Real-time focused scanning was performed of the abdomen, with image documentation. COMPARISON: [facility], CT, CT CHEST ABD PEL W CON, 03/11/2021, 1:05. [facility], US, US ABDOMEN LIMITED, 11/23/2020, 16:07. FINDINGS: The liver is shrunken and cirrhotic in appearance. The gallbladder is distended. There are multiple gallstones in the gallbladder neck. There is no sonographic Cain sign. No thickening of the wall of the gallbladder. Pancreas not visualized secondary to overlying bowel gas. Minimal perihepatic ascites. IMPRESSION: 1. Cirrhosis, minimal perihepatic ascites. 2. Cholelithiasis without evidence of acute cholecystitis. Comment: Final report is concordant with preliminary interpretation provided by [facility]. Dictated by: Earnest Mccabe M.D. on 03/11/2021 at 10:26 Approved by: Earnest Mccabe M.D. on 03/11/2021 at 10:29
[2021-03-11 03:49] LABS: Amylase 100 U/L (30-110); Lipase 292 U/L (23-300)
[2021-03-11 04:59] LABS: Add Manual Diff / Slide Review NO; Basophils Absolute Auto 100 /uL (0-100); Basophils Percent Auto 0.4 % (0-2); Eosinophils Absolute Auto 100 /uL (0-450); Eosinophils Percent Auto 0.8 % (2-4); Hemoglobin 10.7 g/dL (13.5-17.5); Lymphocytes Absolute Auto 700 /uL (1100-4500); Lymphocytes Percent Auto 4.7 % (25-40); Mean Corpuscular HGB Conc 33.4 % (30-36); Mean Corpuscular Hemoglobin 32.5 PG (26-34); Mean Corpuscular Volume 97.3 fL (80-100); Monocytes Absolute Auto 1400 /uL (0-900); Monocytes Percent Auto 9.8 % (3-14); Neutrophils Absolute Auto 12200 /uL (1500-7000); Neutrophils Percent Auto 84.3 % (50-75); Platelet Count 60 X10^3/uL (150-400); Red Blood Cell Count 3.29 X10^6/uL (4.5-5.9); Red Cell Distribution Width 15.9 % (11.6-14.8); White Blood Cell Count 14.5 X10^3/uL (4.5-11.0)
[2021-03-11 05:04] LABS: Ammonia (NH3) 23 umol/L (9-30)
[2021-03-11 05:05] LABS: INR 1.6 (0.9-1.3); Prothrombin Time 17.9 SECONDS (10.1-12.7)
[2021-03-11 05:08] LABS: PTT Partial Thromboplastin Tim 38 SECONDS (26.4-36.2)
[2021-03-11 05:10] LABS: Lactate (Lactic Acid) 2.6 mmol/L (0.7-2.1); Lactate Dehydrogenase 744 U/L (313-618)
[2021-03-11 05:12] LABS: Alanine Aminotransferase 41 IU/L (<50); Albumin Globulin Ratio 0.7 (1.0-2.8); Alkaline Phosphatase 147 U/L (38-126); Aspartate Aminotransferase 73 IU/L (17-59); BUN Creatinine Ratio 21.2 (6-22); Bilirubin Total 6.5 mg/dL (0.2-1.3); Blood Urea Nitrogen 42 mg/dL (9-20); Calcium 9.3 mg/dL (8.4-10.2); Carbon Dioxide 31 mmol/L (22-32); Chloride 97 mmol/L (98-107); Cholesterol 162 mg/dL (140-199); Estimated Glomerular Filt Rate 34.3 mL/min (>60); Globulin 4.4 g/dL (1.7-4.1); Glucose 130 mg/dL (80-110); HDL Cholesterol 50 mg/dL (40-60); HEMOLYSIS < 15 (0-50); LDL Cholesterol Calculated 94 mg/dL (<100); Potassium 4.2 mmol/L (3.4-5.1); Sodium 136 mmol/L (137-145); Total Protein 7.4 g/dL (6.3-8.2); Triglycerides 90 mg/dL (35-150)
[2021-03-11 05:21] LABS: NT-proBNP (BNP-Adult 18+) 485 pg/mL (<125)
[2021-03-11 05:24] LABS: Troponin I 0.033 ng/mL (0.01-0.034)
[2021-03-11 05:28] LABS: Procalcitonin 0.47 ng/mL (<0.5)
[2021-03-11] MEDS: LACTULOSE 20 GM/30 ML SOLUTION PR (06:09)
[2021-03-11] MEDS: HALOPERIDOL 5 MG/ML VIAL 2 MG IV (06:27)
--- NOTE | 2021-03-11 06:39 | PC.NURSE ---
Admit Note-Patient brought to ICU room 231 at 0435, confused, agitated, and moaning help me, help me when he is awake. 2mg IV Haldol given per prn order, Lactulose given NJ as ordered, no BM except the 30ml of medication inserted. SR, VSS, SpO2 >92% on 2L NC. See assessment notes.
[2021-03-11 06:53] LABS: Reflexed Lactate in 2 Hours Y
--- NOTE | 2021-03-11 08:49 | ED_ITS ---
HPI - Altered Mental Status General Chief Complaint: Altered Mental Status Stated Complaint: Altered LOC Time Seen by Provider: 03/10/21 22:14 Source: EMS Mode of arrival: EMS Limitations: altered mental status History of Present Illness HPI narrative: Patient is a 65-year-old male who has a history of hepatic encep halopathy liver cancer and hepatitis C presenting today with altered mental status. He received his 1st vaccination of COVID yesterday and now has a fever at home. states that now he is hallucinating. He is moaning quite a bit he is able to stop and answer some questions he denies pain or at least he can not localize where his pain is. He is afebrile in the ER. He does not have any nausea or vomiting. It is difficult to get history from him due to the moaning. MD complaint: altered mental status and confusion Related Data Home Medications Medication Instructions Recorded Confirmed bumetanide 4 mg PO BID 11/22/20 03/10/21 spironolactone 100 mg PO DAILY 03/10/21 03/10/21 Previous Rx's Medication Instructions Recorded albuterol sulfate 90 mcg/actuation 2 inhalation INHALATION Q4-6H PRN 01/23/20 breath activated powder inhaler #1 each lactulose 40 gm PO BID #30 ml 12/19/20 Allergies Allergy/AdvReac Type Severity Reaction Status Date / Time No Known Drug Allergies Allergy Verified 03/10/21 22:34 Review of Systems Review of Systems ROS Unobtainable: Unobtainable due to medical condition Constitutional Constitutional: Reports chills and Reports fever(s) Gastrointestinal Gastrointestinal: Reports abdominal pain, Denies nausea and Denies vomiting Patient History Medical History Anasarca Ascites Asthma Elevated brain natriuretic peptide (BNP) level Hepatitis C Hypertension Liver cancer Liver cirrhosis Surgical History History of surgery of liver Family History Father Trauma Mother Sjogrens syndrome Sister No significant medical problems Social History household members: spouse Smoking Status: Former smoker alcohol intake: former Smoking Status: Former smoker alcohol intake frequency: 0-2 drinks per day Substance Use Type: marijuana Exam Initial Vital Signs Initial Vital Signs: Vital Signs Pulse Rate 88 03/10/21 22:16 Pulse Oximetry 98 03/10/21 22:16 GENERAL: Patient is mildly jaundiced moaning HEENT: Head atraumatic,EOMI, pupils reactive, face symmetric, moist mucous membranes CARDIOVASCULAR: Regular rate and rhythm without murmurs, rubs or gallops. RESPIRATORY: Breath sounds equal bilaterally, no wheezes rales or rhonchi. ABDOMEN: Obese no obvious ascites or fluid wave minimal diffuse tenderness EXTREMITIES: Normal range of motion, no clubbing or edema. Neurovascularly intact NEUROLOGICAL: Alert and oriented x1. SKIN: Warm, dry, no laceration, no petechiae, no rashes or lesions. Course Orders Ordered: ED Orders 03/11/21 00:56 CT chest abd pel w con Stat 03/11/21 01:26 Education, smoking cessation ONGOING 03/11/21 01:30 Magnesium Urgent 03/11/21 04:39 Complete Blood Count AUTO DIFF DAILY Comprehensive Metabolic Panel DAILY Lipid Panel Routine NT-proBNP (BNP-Adult 18+) Routine Prothrombin Time INR DAILY 03/12/21 05:00 Complete Blood Count AUTO DIFF DAILY Comprehensive Metabolic Panel DAILY Prothrombin Time INR DAILY 03/13/21 05:00 Complete Blood Count AUTO DIFF DAILY Prothrombin Time INR DAILY Sodium Chloride (Normal Saline 0.9%) 1,000 mls @ 150 mls/hr IV CONT TIERNEY Last Admin: 03/11/21 05:08 Dose: Not Given Documented by: SSARDEL Sodium Chloride (Normal Saline 0.9%) 1,000 mls @ 1,000 mls/hr IV BOLUS ONE Stop: 03/11/21 09:34 Lactulose (Lactulose 20 Gm/30 Ml Solution) 60 gm CA Q6H TIERNEY Lactulose (Lactulose 20 Gm/30 Ml Solution) 60 gm CA NOW ONE Stop: 03/11/21 08:49 Naloxone HCl (Naloxone 0.4 Mg/Ml Vial) 0.2 mg IV Q2MIN PRN PRN Reason: Opiate Reversal Ondansetron HCl (Ondansetron 4 Mg/2 Ml Inj) 4 mg IV Q8HR PRN PRN Reason: Nausea And Vomiting Discontinued Medications Haloperidol (Haloperidol 5 Mg/Ml Vial) 2 mg IV Q2HR PRN PRN Reason: Agitation Last Admin: 03/11/21 06:27 Dose: 2 mg Documented by: SHAY Sodium Chloride (Normal Saline 0.9%) 1,000 mls @ 150 mls/hr IV CONT TIERNEY Last Infusion: 03/11/21 05:07 Dose: 84 mls/hr Documented by: Infusion: 03/11/21 04:20 Dose: 150 mls/hr Documented by: Admin: 03/10/21 22:43 Dose: 150 mls/hr Documented by: JOVON Ceftriaxone Sodium 2,000 mg/ (Sodium Chloride) 100 mls @ 200 mls/hr IV Q24H TIERNEY Last Infusion: 03/11/21 04:20 Dose: 0 mls/hr Documented by: Admin: 03/11/21 02:46 Dose: 200 mls/hr Documented by: BEST Lactulose (Lactulose 20 Gm/30 Ml Solution) 20 gm CA TID TIERNEY Lactulose (Lactulose 20 Gm/30 Ml Solution) 20 gm CA Q4H TIERNEY Last Admin: 03/11/21 06:54 Dose: Not Given Documented by: Admin: 03/11/21 06:09 Dose: 20 gm Documented by: SHAY Lorazepam (Lorazepam 2 Mg/Ml Inj) 1 mg IV NOW ONE Stop: 03/10/21 23:28 Last Admin: 03/10/21 23:31 Dose: 1 mg Documented by: JOVON Lorazepam (Lorazepam 2 Mg/Ml Inj) 0.5 mg IV NOW ONE Stop: 03/11/21 01:00 Last Admin: 03/11/21 01:04 Dose: 0.5 mg Documented by: BEST Morphine Sulfate (Morphine 4 Mg/Ml Inj) 4 mg IM NOW ONE Stop: 03/10/21 22:38 Last Admin: 03/10/21 22:42 Dose: 4 mg Documented by: JOVON Ondansetron HCl (Ondansetron 4 Mg/2 Ml Inj) 4 mg IV NOW ONE Stop: 03/10/21 22:38 Last Admin: 03/10/21 22:42 Dose: 4 mg Documented by: JOVON Vital Signs Vital signs: Vital Signs - 8 hr 03/11/21 00:55 03/11/21 01:00 03/11/21 01:10 Pulse Rate 88 85 Blood Pressure 127/60 Pulse Oximetry 94 06/01/21 01:15 03/11/21 01:30 Pulse Rate 85 85 Blood Pressure Pulse Oximetry 93 95 MDM - Altered Mental Status Lab Data Attestation: I reviewed the patient's lab results. Result diagrams: 03/11/21 04:39 03/11/21 04:39 Labs: Lab Results 03/10/21 03/10/21 03/10/21 Range/Units 22:21 22:21 22:21 WBC 14.3 H (4.5-11.0) X10^3/uL RBC 3.01 L (4.5-5.9) X10^6/uL Hgb 10.0 L (13.5-17.5) g/dL Hct 28.8 L (41-53) % MCV 95.9 (80-100) fL MCH 33.2 (26-34) PG MCHC 34.6 (30-36) % RDW 15.8 H (11.6-14.8) % Plt Count 58 L (150-400) X10^3/uL Neut % (Auto) 89.2 H (50-75) % Lymph % (Auto) 2.7 L (25-40) % [place] % (Auto) 7.6 (3-14) % Eos % (Auto) 0.2 L (2-4) % Baso % (Auto) 0.3 (0-2) % Neut # (Auto) 98757 H (2129-0888) /uL Lymph # (Auto) 400 L (3380-2147) /uL [place] # (Auto) 1100 H (0-900) /uL Eos # (Auto) 0 (0-450) /uL Baso # (Auto) 0 (0-100) /uL PT 17.9 H (10.1-12.7) SECONDS INR 1.6 H (0.9-1.3) APTT 38 H (26.4-36.2) SECONDS Sodium 133 L (137-145) mmol/L Potassium 3.9 (3.4-5.1) mmol/L Chloride 97 L (98-107) mmol/L Carbon Dioxide 28 (22-32) mmol/L BUN 42 H (9-20) mg/dL Creatinine 1.94 H (0.66-1.25) mg/dL Estimated GFR 35.1 L (>60) mL/min BUN/Creatinine Ratio 21.6 (6-22) Glucose 145 H (80-110) mg/dL Lactate (0.7-2.1) mmol/L Calcium 9.3 (8.4-10.2) mg/dL Magnesium (1.6-2.3) mg/dL Total Bilirubin 5.6 H (0.2-1.3) mg/dL AST 65 H (17-59) IU/L ALT 36 (<50) IU/L Alkaline Phosphatase 148 H (38-126) U/L Ammonia (9-30) umol/L Total Creatine Kinase 67 (55-170) U/L CK-MB (CK-2) TNP CK-MB (CK-2) Rel Index TNP Troponin I 0.015 (0.01-0.034) ng/mL Total Protein 7.0 (6.3-8.2) g/dL Albumin 2.9 L (3.5-5.0) g/dL Globulin 4.1 (1.7-4.1) g/dL Albumin/Globulin Ratio 0.7 L (1.0-2.8) Amylase (30-110) U/L Lipase (23-300) U/L Procalcitonin 0.34 (<0.5) ng/mL TSH (0.47-4.68) uIU/mL Urine Color Urine Appearance Urine pH (4.5-8.0) Ur Specific [place] (1.000-1.035) Urine Protein (Negative) Urine Glucose (UA) (Negative) g/dL Urine Ketones (NEGATIVE) Urine Occult Blood (Negative) Urine Nitrate (Negative) Urine Bilirubin (NEGATIVE) Urine Urobilinogen (0.2) E.U./dL Ur Leukocyte Esterase (NEGATIVE) Urine RBC (0-5/HPF) Urine WBC (0-5/HPF) Ur Squamous Epith Cells (0-5/HPF) Urine Bacteria (None) Ur Culture Indicated? Salicylates < 1.0 (<20) mg/dL U Opiates 300ng/mL cut (Negative) Ur Oxycodone Screen (Negative) Urine Methadone Screen (Negative) Acetaminophen < 10 L (10-30) ug/mL Ur Barbiturates Screen (Negative) U Tricyclic Antidepress (Negative) Ur Phencyclidine Scrn (Negative) Ur Amphetamines Screen (Negative) U Methamphetamines Scrn (Negative) Ur MDMA Scrn (Ecstasy) (Negative) U Benzodiazepines Scrn (Negative) Urine Cocaine Screen (Negative) U Marijuana (THC) Screen (Negative) Ethyl Alcohol < 10 ( - 10) mg/dL SARS-CoV-2 (PCR) (Negative) 03/10/21 03/10/21 03/10/21 Range/Units 22:21 22:21 22:21 WBC (4.5-11.0) X10^3/uL RBC (4.5-5.9) X10^6/uL Hgb (13.5-17.5) g/dL Hct (41-53) % MCV (80-100) fL MCH (26-34) PG MCHC (30-36) % RDW (11.6-14.8) % Plt Count (150-400) X10^3/uL Neut % (Auto) (50-75) % Lymph % (Auto) (25-40) % [place] % (Auto) (3-14) % Eos % (Auto) (2-4) % Baso % (Auto) (0-2) % Neut # (Auto) (9164-9819) /uL Lymph # (Auto) (1927-8902) /uL [place] # (Auto) (0-900) /uL Eos # (Auto) (0-450) /uL Baso # (Auto) (0-100) /uL PT (10.1-12.7) SECONDS INR (0.9-1.3) APTT (26.4-36.2) SECONDS Sodium (137-145) mmol/L Potassium (3.4-5.1) mmol/L Chloride (98-107) mmol/L Carbon Dioxide (22-32) mmol/L BUN (9-20) mg/dL Creatinine (0.66-1.25) mg/dL Estimated GFR (>60) mL/min BUN/Creatinine Ratio (6-22) Glucose (80-110) mg/dL Lactate 2.7 H (0.7-2.1) mmol/L Calcium (8.4-10.2) mg/dL Magnesium (1.6-2.3) mg/dL Total Bilirubin (0.2-1.3) mg/dL AST (17-59) IU/L ALT (<50) IU/L Alkaline Phosphatase (38-126) U/L Ammonia 69 H (9-30) umol/L Total Creatine Kinase (55-170) U/L CK-MB (CK-2) CK-MB (CK-2) Rel Index Troponin I (0.01-0.034) ng/mL Total Protein (6.3-8.2) g/dL Albumin (3.5-5.0) g/dL Globulin (1.7-4.1) g/dL Albumin/Globulin Ratio (1.0-2.8) Amylase (30-110) U/L Lipase (23-300) U/L Procalcitonin (<0.5) ng/mL TSH 0.637 (0.47-4.68) uIU/mL Urine Color Urine Appearance Urine pH (4.5-8.0) Ur Specific [place] (1.000-1.035) Urine Protein (Negative) Urine Glucose (UA) (Negative) g/dL Urine Ketones (NEGATIVE) Urine Occult Blood (Negative) Urine Nitrate (Negative) Urine Bilirubin (NEGATIVE) Urine Urobilinogen (0.2) E.U./dL Ur Leukocyte Esterase (NEGATIVE) Urine RBC (0-5/HPF) Urine WBC (0-5/HPF) Ur Squamous Epith Cells (0-5/HPF) Urine Bacteria (None) Ur Culture Indicated? Salicylates (<20) mg/dL U Opiates 300ng/mL cut (Negative) Ur Oxycodone Screen (Negative) Urine Methadone Screen (Negative) Acetaminophen (10-30) ug/mL Ur Barbiturates Screen (Negative) U Tricyclic Antidepress (Negative) Ur Phencyclidine Scrn (Negative) Ur Amphetamines Screen (Negative) U Methamphetamines Scrn (Negative) Ur MDMA Scrn (Ecstasy) (Negative) U Benzodiazepines Scrn (Negative) Urine Cocaine Screen (Negative) U Marijuana (THC) Screen (Negative) Ethyl Alcohol ( - 10) mg/dL SARS-CoV-2 (PCR) (Negative) 03/10/21 03/10/21 03/10/21 Range/Units 22:21 22:21 22:54 WBC (4.5-11.0) X10^3/uL RBC (4.5-5.9) X10^6/uL Hgb (13.5-17.5) g/dL Hct (41-53) % MCV (80-100) fL MCH (26-34) PG MCHC (30-36) % RDW (11.6-14.8) % Plt Count (150-400) X10^3/uL Neut % (Auto) (50-75) % Lymph % (Auto) (25-40) % [place] % (Auto) (3-14) % Eos % (Auto) (2-4) % Baso % (Auto) (0-2) % Neut # (Auto) (4389-5750) /uL Lymph # (Auto) (6908-4608) /uL [place] # (Auto) (0-900) /uL Eos # (Auto) (0-450) /uL Baso # (Auto) (0-100) /uL PT (10.1-12.7) SECONDS INR (0.9-1.3) APTT (26.4-36.2) SECONDS Sodium (137-145) mmol/L Potassium (3.4-5.1) mmol/L Chloride (98-107) mmol/L Carbon Dioxide (22-32) mmol/L BUN (9-20) mg/dL Creatinine (0.66-1.25) mg/dL Estimated GFR (>60) mL/min BUN/Creatinine Ratio (6-22) Glucose (80-110) mg/dL Lactate (0.7-2.1) mmol/L Calcium (8.4-10.2) mg/dL Magnesium 2.2 (1.6-2.3) mg/dL Total Bilirubin (0.2-1.3) mg/dL AST (17-59) IU/L ALT (<50) IU/L Alkaline Phosphatase (38-126) U/L Ammonia (9-30) umol/L Total Creatine Kinase (55-170) U/L CK-MB (CK-2) CK-MB (CK-2) Rel Index Troponin I (0.01-0.034) ng/mL Total Protein (6.3-8.2) g/dL Albumin (3.5-5.0) g/dL Globulin (1.7-4.1) g/dL Albumin/Globulin Ratio (1.0-2.8) Amylase 100 (30-110) U/L Lipase 292 (23-300) U/L Procalcitonin (<0.5) ng/mL TSH (0.47-4.68) uIU/mL Urine Color Urine Appearance Urine pH (4.5-8.0) Ur Specific [place] (1.000-1.035) Urine Protein (Negative) Urine Glucose (UA) (Negative) g/dL Urine Ketones (NEGATIVE) Urine Occult Blood (Negative) Urine Nitrate (Negative) Urine Bilirubin (NEGATIVE) Urine Urobilinogen (0.2) E.U./dL Ur Leukocyte Esterase (NEGATIVE) Urine RBC (0-5/HPF) Urine WBC (0-5/HPF) Ur Squamous Epith Cells (0-5/HPF) Urine Bacteria (None) Ur Culture Indicated? Salicylates (<20) mg/dL U Opiates 300ng/mL cut (Negative) Ur Oxycodone Screen (Negative) Urine Methadone Screen (Negative) Acetaminophen (10-30) ug/mL Ur Barbiturates Screen (Negative) U Tricyclic Antidepress (Negative) Ur Phencyclidine Scrn (Negative) Ur Amphetamines Screen (Negative) U Methamphetamines Scrn (Negative) Ur MDMA Scrn (Ecstasy) (Negative) U Benzodiazepines Scrn (Negative) Urine Cocaine Screen (Negative) U Marijuana (THC) Screen (Negative) Ethyl Alcohol ( - 10) mg/dL SARS-CoV-2 (PCR) Negative (Negative) 03/10/21 03/10/21 03/11/21 Range/Units 23:07 23:07 00:50 WBC (4.5-11.0) X10^3/uL RBC (4.5-5.9) X10^6/uL Hgb (13.5-17.5) g/dL Hct (41-53) % MCV (80-100) fL MCH (26-34) PG MCHC (30-36) % RDW (11.6-14.8) % Plt Count (150-400) X10^3/uL Neut % (Auto) (50-75) % Lymph % (Auto) (25-40) % [place] % (Auto) (3-14) % Eos % (Auto) (2-4) % Baso % (Auto) (0-2) % Neut # (Auto) (1915-6220) /uL Lymph # (Auto) (4475-2995) /uL [place] # (Auto) (0-900) /uL Eos # (Auto) (0-450) /uL Baso # (Auto) (0-100) /uL PT (10.1-12.7) SECONDS INR (0.9-1.3) APTT (26.4-36.2) SECONDS Sodium (137-145) mmol/L Potassium (3.4-5.1) mmol/L Chloride (98-107) mmol/L Carbon Dioxide (22-32) mmol/L BUN (9-20) mg/dL Creatinine (0.66-1.25) mg/dL Estimated GFR (>60) mL/min BUN/Creatinine Ratio (6-22) Glucose (80-110) mg/dL Lactate 2.3 H (0.7-2.1) mmol/L Calcium (8.4-10.2) mg/dL Magnesium (1.6-2.3) mg/dL Total Bilirubin (0.2-1.3) mg/dL AST (17-59) IU/L ALT (<50) IU/L Alkaline Phosphatase (38-126) U/L Ammonia (9-30) umol/L Total Creatine Kinase (55-170) U/L CK-MB (CK-2) CK-MB (CK-2) Rel Index Troponin I (0.01-0.034) ng/mL Total Protein (6.3-8.2) g/dL Albumin (3.5-5.0) g/dL Globulin (1.7-4.1) g/dL Albumin/Globulin Ratio (1.0-2.8) Amylase (30-110) U/L Lipase (23-300) U/L Procalcitonin (<0.5) ng/mL TSH (0.47-4.68) uIU/mL Urine Color Yellow Urine Appearance Clear Urine pH 7.5 (4.5-8.0) Ur Specific [place] 1.015 (1.000-1.035) Urine Protein Trace H (Negative) Urine Glucose (UA) Negative (Negative) g/dL Urine Ketones Negative (NEGATIVE) Urine Occult Blood 3+ H (Negative) Urine Nitrate Negative (Negative) Urine Bilirubin Negative (NEGATIVE) Urine Urobilinogen 0.2 (0.2) E.U./dL Ur Leukocyte Esterase Negative (NEGATIVE) Urine RBC 5-10/hpf H (0-5/HPF) Urine WBC 0-1/hpf (0-5/HPF) Ur Squamous Epith Cells 0-1 /hpf (0-5/HPF) Urine Bacteria Occasional (0-1) (None) Ur Culture Indicated? Cult not indicated Salicylates (<20) mg/dL U Opiates 300ng/mL cut Negative (Negative) Ur Oxycodone Screen Negative (Negative) Urine Methadone Screen Negative (Negative) Acetaminophen (10-30) ug/mL Ur Barbiturates Screen Negative (Negative) U Tricyclic Antidepress Negative (Negative) Ur Phencyclidine Scrn Negative (Negative) Ur Amphetamines Screen Negative (Negative) U Methamphetamines Scrn Negative (Negative) Ur MDMA Scrn (Ecstasy) Negative (Negative) U Benzodiazepines Scrn Negative (Negative) Urine Cocaine Screen Negative (Negative) U Marijuana (THC) Screen Positive H (Negative) Ethyl Alcohol ( - 10) mg/dL SARS-CoV-2 (PCR) (Negative) Imaging Data CT scan - head: Radiologist's Impression: PROCEDURE: CT HEAD/BRAIN WO CON INDICATIONS: altered mental status TECHNIQUE: Noncontrast 4.5 mm thick angled axial sections acquired from the foramen magnum to the vertex, with coronal and sagittal reformats. For radiation dose reduction, the following was used: automated exposure control, adjustment of mA and/or kV according to patient size. COMPARISON: [facility], CT, CT CHEST ABD PEL W CON, 03/11/2021, 1:05. [facility], CT, CT HEAD/BRAIN WO CON, 02/09/2021, 14:46. FINDINGS: Image quality: Excellent. CSF spaces: Basal cisterns are patent. No extra-axial fluid collections. The ventricles are symmetric in size and shape. Brain: No intracranial bleeds or masses. Interval deep white matter infarct in the posterior right frontal lobe since the study of 02/09/2021, now appearing chronic. No acute infarct identified. There is cerebral volume loss for age, with resultant ventricular and sulcal prominence. There are periventricular and deep white matter chronic small vessel ischemic changes. There is intracranial internal carotid artery atherosclerosis. Skull and face: Calvarium and visualized facial bones appear intact, without suspicious lesions. Sinuses: Visualized sinuses and mastoids are clear. IMPRESSION: 1. 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 2. No evidence of acute stroke, hemorrhage, or mass. Comment: Final report is concordant with preliminary interpretation provided by [facility]. Dictated by: Earnest Mccabe M.D. on 03/11/2021 at 7:52 Approved by: Earnest Mccabe M.D. on 03/11/2021 at 7:58 Chest x-ray: Radiologist's Impression: PROCEDURE: XR CHEST 1V INDICATIONS: altered mental status TECHNIQUE: One view of the chest was acquired. COMPARISON: [facility], CT, CT CHEST ABD PEL W CON, 03/11/2021, 1:05. [facility], CR, XR CHEST 1V, 02/09/2021, 14:47. FINDINGS: Surgical changes and devices: Metallic densities in the right upper quadrant region, corresponding to the liver on CT. Lungs and pleura: Elevation of right hemidiaphragm associated with right basilar atelectasis versus scarring. Mild pulmonary venous congestion. Mediastinum: Mediastinal contours appear normal. Cardiomegaly. Bones and chest wall: No suspicious bony lesions. Overlying soft tissues appear unremarkable. IMPRESSION: Cardiomegaly, mild pulmonary venous congestion. Right basilar atelectasis versus scarring. Comment: Final report is concordant with preliminary interpretation provided by [facility]. Dictated by: Earnest Mccabe M.D. on 03/11/2021 at 8:14 Approved by: Earnest Mccabe M.D. on 03/11/2021 at 8:17 CT scan - abdomen/pelvis: Radiologist's Impression: PROCEDURE: CT CHEST ABD PEL W CON INDICATIONS: confusion, fever, liver cancer TECHNIQUE: After the administration of intravenous contrast, 5 mm thick sections acquired from the lung apices to the symphysis. 5 mm coronal and sagittal reformats were performed, with additional 7 mm MIP reformats through the lungs. For radiation dose reduction, the following was used: automated exposure control, adjustment of mA and/or kV according to patient size. COMPARISON: [facility], CT, CT ABDOMEN PELVIS W CON, 02/09/2021, 16:21. FINDINGS: Image quality: Excellent. CHEST: Lungs and pleura: Minimal consolidation, posterior aspect of left upper lobe. Unchanged atelectasis in the extreme right lung base. No pleural effusions or pneumothorax. Central and peripheral airways appear patent and normal in caliber. Mediastinum: Heart size is normal. No pericardial effusion. Severe coronary artery calcifications. No mediastinal or hilar adenopathy by size criteria. Thoracic aorta and central pulmonary arteries are normal in size. Esophagus is normal in caliber. No hiatal hernia. Chest wall: No axillary or supraclavicular adenopathy by size criteria. Thyroid gland is unremarkable . ABDOMEN: Solid organs: Advanced changes of cirrhosis with a small shrunken nodular liver. Numerous stable metallic densities in the liver. Recanalization of the umbilical vein, which is quite large. Gallbladder is distended with multiple tiny gallstones noted. There is no gallbladder wall thickening.. Biliary system is non dilated. Pancreas enhances normally. Splenomegaly, as before. Stable 1.9 cm left adrenal nodule. Kidneys demonstrate normal size and enhancement, without hydronephrosis. Peritoneum and bowel: Bowel loops demonstrate normal wall thickness and caliber. Large recanalized umbilical vein which results in large right abdominal and pelvic varicosities. Mild perihepatic ascites, diminished compared to the previous study. Nodes and vessels: No retroperitoneal or mesenteric adenopathy by size criteria. Aorta and inferior vena cava are normal in size. Miscellaneous: No ventral hernias. Anasarca. PELVIS: Genitourinary: A Lopez catheter is present in the bladder, which is decompressed. Miscellaneous: No inguinal hernias or adenopathy. Bones: No suspicious bony lesions. No vertebral body compression fractures. IMPRESSION: 1. Cirrhosis. 2. Splenomegaly, recanalized umbilical vein, large abdominal varicosities are consistent with portal venous hypertension. 3. Interval decrease in ascites, now mild. 4. Severe coronary artery calcifications. 5. Small left upper lobe infiltrate, atelectasis in the extreme right lung base. 6. Unchanged left adrenal nodule. 7. Cholelithiasis. Comment: Final report is concordant with preliminary interpretation provided by [facility]. Dictated by: Earnest Mccabe M.D. on 03/11/2021 at 8:43 US - abdomen: Radiologist's Impression: Preliminary report hepatomegaly and sequela of cirrhosis. Gallbladder is distended with multiple non mobile stones within the neck of the gallbladder measuring up to 1 cm. No gallbladder wall thickening pericholecystic fluid or sonographic Cain sign. Patient does not meet sonographic criteria for acute cholecystitis. Prominence of common bile duct measures 10 mm. ECG Data Attestation: I personally reviewed and interpreted this ECG as follows: Prior ECG tracings: available for review Interpretation: Low voltage sinus rhythm rate 87 p.r. interval 132 QRS [address] changes MDM Narrative Medical decision making narrative: Very difficult to get any information from patient initially was here sitting that he does have a [place] encephal opathy occasionally misses doses of lactulose but she is not sure that that has happened this time. His ammonia level is 64 not significantly elevated. Patient has leukocytosis that is new of 14 and an elevated lactic acid of 2.7 but no obvious source of infection. He is given Ativan in order to get imaging and to help calm him which does seem to work well. CT did show gallstones in the gallbladder ultrasound confirmed that but there is no evidence of acute cholecystitis id these are not a new finding. It is unclear what is causing patient's metabolic encephalopathy is but is perhaps hepatic encephalopathy with slight elevation of ammonia. He did receive 2 g of Rocephin in the ED empirically. Gigi ROE is updated patient's symptoms and test results and agrees with admission. Discharge Plan Departure Patient Disposition: Admitted as Observation Clinical Impression: Acute metabolic encephalopathy, Acute hepatic encephalopathy Admit Date/Time: 03/11/21 01:34 Admit Provider: Jeannie Yu
[2021-03-11] MEDS: SODIUM CHLORIDE 0.9% 1,000 ML 1000 ML IV (09:17)
[2021-03-11] MEDS: LACTULOSE 20 GM/30 ML SOLUTION 60 GM PR ×3 (09:19→21:00)
--- NOTE | 2021-03-11 10:33 | CM.DANOTE ---
DCP: Case received, EMR reviewed. Checked on patient, as he was starting to wake up. He did give permission to call his significant other, Tayler Rasmussen, for additional information. Did contact her via phone, introduced self and role. Was able to obtain information regarding patient's baseline activity in the home setting at his baseline. DCP assessment completed with information currently available. Patient is a 65 year old male who admitted early this morning to the care of the hospitalist team. PCP: Dr. Payan. Payer: confirmed: Medicare/Medicaid. Patient came to the hospital via ambulance secondary to decreased level of consciousness, and confusion. Patient has history of cirrhosis of the liver, and has been here before for the same symptoms. Patient holds current diagnosis of acute hepatic encephalopathy. Checked on patient in his room. He was waking up, wanting to use the bathroom. Patient was able to answer brief questions, confirmed that he resides in [place] with his life partner, Tayler Rasmussen. He gave permission to contact her for any additional information. Spoke to Tayler. Confirmed with her that patient is still currently under [facility]. Called Cassie at [facility] and was informed that patient is currently under their services for P.T, and nursing. Updated her that he was currently admitted early this morning. Tayler indicated that he gets around ok at home, and can take his own showers. Asked him about his Lactulose, and she indicated, the only time he didn't take it was when he had his second COVID, due to nausea after the shot. P: DCP to continue to follow. Plan is for home to resume [facility] when stable. Will need to update [facility]. If he is inpatient, will need resumption orders, as well as DC Summary. Addis Roca RN/Java Engineer
--- NOTE | 2021-03-11 10:42 | PC.NURSE ---
Addendum entered by Natalie Lopez R.N. 03/11/21 15:07: pt on 2l nc o2 and usually saturates mid-90's % occasionally sats drop down to mid 70's with good waveform/pleth and spontaneously rebounds Original Note: PT MOSTLY NONVERBAL AT INITIAL ASSESSMENT- BUT GIVEN 60NG OF LACTULOSE PER RECTUM WHICH PT WAS ABLE TO HOLD X 15-20 MINUTES AND THEN WAS ATTEMPTING TO GET OUT OF BED REPORTING I GOTTA POOP, I GOTTA POOP- ASSISTED PT TO BEDPAN BUT HE HAD ALREADY EXPELLED LACTULOSE MIXED WITH STOOL- CHANGED BRIEF AT THIS TIME AND REMINDED PT HE HAD A HOSKINS CATHETER IN PLACE - REMAINS NPO AT THIS TIME- PT ALSO RECEIVED 1 LITER BOLUS OF NS THEN DECREASED TO 150CC/H- TELEPHONE UPDATE TO SIGNIFICANT OTHER, FRANKLIN
[2021-03-11] MEDS: SODIUM CHLORIDE 0.9% 1,000 ML 150 ML IV ×3 (11:55→23:23)
[2021-03-11 17:14] LABS: Sodium Urine Random 96 mmol/L (30-90)
--- NOTE | 2021-03-11 19:51 | PC.NURSE ---
Addendum entered by Jeannie Navas R.N. 03/12/21 06:44: Reduced IVF to 60mls/hr. Pt continues to call out, frequently within minutes of staff leaving room, I am impatient, who is bringing me breakfast Reminded Pt that snacks had been provided, and breakfast was on the way. Remains forgetful, BA active. Tolerating PO diet with no complications. Addendum entered by Jeannie Navas R.N. 03/12/21 05:39: Pt taking PO well, significantly more alert toward end of shift, able to hold a conversation, answer more than just yes/no questions. Pt reports that srivastava is agitating him, with increased alertness, Pt is tactile and pulling/removing tele leads and taking srivastava from leg strap. Removed per Pt request @ [id number]. Instructed to notify staff of next urge to void. Addendum entered by Jeannie Navas R.N. 03/12/21 02:41: 0240-Pt much more alert as shift progresses. Repeatedly asking for water, oral care provided. Appears to be able to protect airway, bedside swallow eval done with Pt, passed. Sitting upright, Pt tolerating ice water, and no s/sx aspiration observed. Pt agreeable to sips of H20 as tolerated. Orders obtained for PO lactulose. Original Note: 1900- Assumed care of Pt, who is resting quietly with even, unlabored RR. Wakes easily to voice, and will answer assessment questions, but falling asleep mid sentance. Occasional groans, reporting hurts everywhere asleep prior to pain assessment.Repositioning for comfort. Continue with lactulose enemas q6. Srivastava patent. IVF infusing, PIVx2. BA active. Tele SR, VSS.
[2021-03-12] VITALS (7 sets, daily range): BP systolic 110–126; BP diastolic 58–67; PULSE 70–78; RESP 16–23; TEMP 36.2–37; O2SAT 95–98
[2021-03-12 00:05] LABS: Acinetobacter baumannii Not Detected (Not Detect); Enterobacteriaceae species Not Detected (Not Detect); Enterococcus species Not Detected (Not Detect); Listeria monocytogenes Not Detected (Not Detect); Methicillin-resistant gene Not Detected (Not Detect); Staphylococcus species Detected (Not Detect); Streptococcus agalactiae (Gr B Not Detected (Not Detect); Streptococcus pneumonia Not Detected (Not Detect); Streptococcus pyogenes (Gr A) Not Detected (Not Detect); Streptococcus species Not Detected (Not Detect)
[2021-03-12 00:06] LABS: Candida albicans Not Detected (Not Detect); Candida glabrata Not Detected (Not Detect); Candida krusei Not Detected (Not Detect); Candida parapsilosis Not Detected (Not Detect); Candida tropicalis Not Detected (Not Detect); E. coli Not Detected (Not Detect); Enterobacter cloacae complex Not Detected (Not Detect); Haemophilus influenzae Not Detected (Not Detect); Neisseria meningitidis Not Detected (Not Detect); Proteus species Not Detected (Not Detect); Pseudomonas aeruginosa Not Detected (Not Detect); Serratia marcescens Not Detected (Not Detect)
[2021-03-12] MEDS: LACTULOSE 20 GM/30 ML SOLUTION 60 GM PO (03:52)
[2021-03-12 04:45] LABS: Add Manual Diff / Slide Review NO; Basophils Absolute Auto 100 /uL (0-100); Basophils Percent Auto 1.1 % (0-2); Eosinophils Absolute Auto 200 /uL (0-450); Eosinophils Percent Auto 2.2 % (2-4); Hematocrit 27.3 % (41-53); Hemoglobin 9.3 g/dL (13.5-17.5); Lymphocytes Absolute Auto 500 /uL (1100-4500); Lymphocytes Percent Auto 5.2 % (25-40); Mean Corpuscular HGB Conc 33.9 % (30-36); Mean Corpuscular Hemoglobin 33.2 PG (26-34); Monocytes Absolute Auto 1100 /uL (0-900); Monocytes Percent Auto 12.5 % (3-14); Neutrophils Absolute Auto 7200 /uL (1500-7000); Platelet Count 56 X10^3/uL (150-400); Red Blood Cell Count 2.79 X10^6/uL (4.5-5.9); Red Cell Distribution Width 15.9 % (11.6-14.8); White Blood Cell Count 9.2 X10^3/uL (4.5-11.0)
[2021-03-12 04:49] LABS: INR 1.7 (0.9-1.3)
[2021-03-12 04:52] LABS: PTT Partial Thromboplastin Tim 36 SECONDS (26.4-36.2)
[2021-03-12 04:53] LABS: Ammonia (NH3) 33 umol/L (9-30); HEMOLYSIS < 15 (0-50); Potassium 3.8 mmol/L (3.4-5.1)
[2021-03-12 04:54] LABS: Alanine Aminotransferase 29 IU/L (<50); Albumin 2.3 g/dL (3.5-5.0); Albumin Globulin Ratio 0.6 (1.0-2.8); Alkaline Phosphatase 118 U/L (38-126); Aspartate Aminotransferase 54 IU/L (17-59); BUN Creatinine Ratio 26.1 (6-22); Bilirubin Total 4.8 mg/dL (0.2-1.3); Blood Urea Nitrogen 40 mg/dL (9-20); Calcium 8.4 mg/dL (8.4-10.2); Carbon Dioxide 26 mmol/L (22-32); Chloride 104 mmol/L (98-107); Estimated Glomerular Filt Rate 46.2 mL/min (>60); Globulin 3.8 g/dL (1.7-4.1); Glucose 109 mg/dL (80-110); Sodium 135 mmol/L (137-145); Total Protein 6.1 g/dL (6.3-8.2)
[2021-03-12] MEDS: SODIUM CHLORIDE 0.9% 1,000 ML 60 ML IV (05:57)
[2021-03-12] MEDS: LACTULOSE 20 GM/30 ML SOLUTION 40 GM PO ×2 (08:49→14:52)
--- NOTE | 2021-03-12 11:05 | CM.DPC ---
DCP Discharge Home Resume HH Per MD, pt is medically stable to d/c home today with [facility]. Per RN, issa santiago Tayler has been notified and she can provide transport home today around 1700 and is agreeable. NEYMAR called [facility] with update on d/c home today and faxed Resume orders to [facility] to review and will fax d/c summary to [facility] when available today. NEYMAR placed copy of Medicare Message that was verbally signed today via phone with admissions counselors in pt's packet for discharge. Plan: Patient to d/c home this evening via [facility] POV and [facility] RN/PT. TIFFANIE Naranjo
--- NOTE | 2021-03-12 18:08 | PC.NURSE ---
d/c instructions are provided/reviewed with Kadeem and and questions answered. All personal belongings are accounted for per Kadeem. Kadeem is escorted to private car via w/c to ride home with
--- NOTE | 2021-03-12 19:03 | PM.DS.1 ---
History of Present Illness History of Present Illness Chief complaint: Altered LOC Narrative: Patient is a 65-year-old male Juan Carlos Guzmán whose family brought him in to the ED for altered mental status and history of multiple hospitalizations for acute hepatic encephalopathy and cirrhosis as result of liver cancer and hepatitis C which have both resolved with treatment. Patient has been hospitalized for hepatic encephalopathy on 11/22, 12/10, and 01/12/2021. In the ED the patients daughter provided information. She stated that the patient may have missed a dose or 2 of lactulose. She has had growing concern over increased confusion although she found him not as confused as prior encephalopathy events. She brought her father in because she was concerned that he had nausea and vomiting overnight as well as diarrhea frequently. She states that he would walk around the room and have diarrhea, and did not seem to notice or care. She states he has also been answering questions inappropriately. She states he has not had any fevers or chills that she is aware of. In the ED the patient denied chest pain, abdominal pain, back or flank pain. No headaches or vision changes, or fevers. He had no nausea or vomiting in the department. He has had diarrhea but no samples had been obtained. Stool was absent of melena or bright red blood. Patient denied issues with urination such as frequency, dysuria urgency. Patient has not had any new medication changes recently. Upon admit patient's vital signs in the ED temp 99.2?, BP was 119/60, HR 88, RR 25, O2 saturation 90% on room air. Patient seen in the ED he was somnolent confused and predominantly verbally unresponsive. Patient was moaning quite loudly when I arrived in the ED department, when asked if he was in pain patient verbalized no, but was unable to communicate with me any further or answer any questions. Patient had been given a dose of Ativan for agitation. Was unable to obtain HPI. Patient's physical presentation was that of profound icterus and anasarca. Patient's with leukocytosis WBC 14.3 with Neut#12,700, patient's chronic thrombocytopenia HGB 10, HCT 28, platelets of 58. Patient with mild acute kidney injury with a sodium 133, chloride 97, BUN 42, creatinine 1.94 elevated and GRF 35.1 decreased from last hospitalization, glucose 145. Patient has an increased bili 5.6, consistent albumin at 2.9, lactate 2.7, and ammonia 69, patient's troponin 0.015, troponin within normal limits, U/A is negative, and urine drug screen positive for THC. Head CT was unremarkable showed no signs subdural hematoma, CT of abd /pelvis showed possible enteritis, moderate amount of ascites and diffuse anasarca, signs of portal hypertension and cholelithiasis. Discharge Providers Provider Date of admission: 03/11/21 01:34 Discharge Date: 03/12/21 Primary care physician: Pancho Payan MD Consults: 03/11/21 17:29 Consult to Dietitian, Adult Routine Comment: Reason For Exam: assessed at high risk 03/12/21 10:50 Consult to Home Health Routine Comment: Acute Encephalopathy Reason For Exam: [facility] RN/PT for discharge home 03/12/21 Discharge provider: Catalino Rose MD Summary Hospital Course Discharge Diagnosis: 1. Acute hepatic encephalopathy due to diuretic volume depletion 2. Acute kidney injury, prerenal 3. Cirrhosis Patient was admitted with up 10 days french due to hepatic encephalopathy. He was noted to be in acute renal failure and severely dehydrated. He was started on IV fluids. He also received lactulose rectally. Over the course of 24 hours he began to wake up and mentation has gradually returned to normal. Patient notes his loop diuretic bumetanide dose has been recently increased which is likely cause of volume depletion. At this time he is being discharged on reduced dose bumetanide 2 mg daily and his spironolactone is increased from 100 mg daily to 200 mg twice daily. He is instructed to see PCP and have blood work checked in 1 week. Recommend close monitoring of renal function and electrolytes with any adjustment of diuretic dosing. Of note, he had no ascites on abdominal ultrasound whereas on admission earlier this year he had massive ascites. Status at Discharge Cognitive/behavioral status at discharge: oriented Functional status at discharge: independent ambulation Overall status at discharge: patient is back to baseline Time Spent with Patient Time spent: Greater than 30 minutes Exam Vital Signs (past 8 hours): - 03/12/21 12:00 03/12/21 16:00 03/12/21 16:12 Temperature 97.1 F L 97.1 F L Pulse Rate 70 71 Respiratory Rate 18 16 Blood Pressure 111/58 L 110/58 L Pulse Oximetry 97 97 98 Oxygen Delivery Method Room Air Oxygen Flow Rate 0 Objective Labs Result Diagrams: 03/12/21 04:26 03/12/21 04:26 Labs: Laboratory Results - last 24 hr 03/11/21 03/12/21 03/12/21 22:55 04:26 04:26 WBC 9.2 RBC 2.79 L Hgb 9.3 L Hct 27.3 L MCV 98.0 MCH 33.2 MCHC 33.9 RDW 15.9 H Plt Count 56 L Neut % (Auto) 79.0 H Lymph % (Auto) 5.2 L Lassen % (Auto) 12.5 Eos % (Auto) 2.2 Baso % (Auto) 1.1 Neut # (Auto) 7200 H Lymph # (Auto) 500 L Lassen # (Auto) 1100 H Eos # (Auto) 200 Baso # (Auto) 100 PT INR APTT Sodium Potassium Chloride Carbon Dioxide BUN Creatinine Estimated GFR BUN/Creatinine Ratio Glucose Calcium Total Bilirubin AST ALT Alkaline Phosphatase Ammonia 33 H Total Protein Albumin Globulin Albumin/Globulin Ratio A. baumannii (PCR) Not detected Carmen albicans (PCR) Not detected C. glabrata (PCR) Not detected C. krusei (PCR) Not detected C. parapsilosis (PCR) Not detected C. tropicalis (PCR) Not detected Enterobacteriac sp PCR Not detected E. cloacae complex PCR Not detected Enterococcus sp PCR Not detected E. coli (PCR) Not detected H. influenzae (PCR) Not detected Klebsiella oxytoca PCR Not detected Klebsiella pneumoniae Not detected List. monocytogenes PCR Not detected N. meningitidis (PCR) Not detected Proteus species (PCR) Not detected Serratia marcescens PCR Not detected Staphylococcus sp PCR Detected H Staph aureus (PCR) Detected H mecA-Methicil Res Gene Not detected Streptococcus sp PCR Not detected Group A Strep (PCR) Not detected Strep agalactiae (PCR) Not detected Strep pneumoniae (PCR) Not detected P. aeruginosa (PCR) Not detected Dion/B-Vanco Res Genes Not Reportable KPC-Carbap Res Gene PCR Not Reportable 03/12/21 03/12/21 04:26 04:26 WBC RBC Hgb Hct MCV MCH MCHC RDW Plt Count Neut % (Auto) Lymph % (Auto) Lassen % (Auto) Eos % (Auto) Baso % (Auto) Neut # (Auto) Lymph # (Auto) Lassen # (Auto) Eos # (Auto) Baso # (Auto) PT 19.0 H INR 1.7 H APTT 36 Sodium 135 L Potassium 3.8 Chloride 104 Carbon Dioxide 26 BUN 40 H Creatinine 1.53 H Estimated GFR 46.2 L BUN/Creatinine Ratio 26.1 H Glucose 109 Calcium 8.4 Total Bilirubin 4.8 H AST 54 ALT 29 Alkaline Phosphatase 118 Ammonia Total Protein 6.1 L Albumin 2.3 L Globulin 3.8 Albumin/Globulin Ratio 0.6 L A. baumannii (PCR) Carmen albicans (PCR) C. glabrata (PCR) C. krusei (PCR) C. parapsilosis (PCR) C. tropicalis (PCR) Enterobacteriac sp PCR E. cloacae complex PCR Enterococcus sp PCR E. coli (PCR) H. influenzae (PCR) Klebsiella oxytoca PCR Klebsiella pneumoniae List. monocytogenes PCR N. meningitidis (PCR) Proteus species (PCR) Serratia marcescens PCR Staphylococcus sp PCR Staph aureus (PCR) mecA-Methicil Res Gene Streptococcus sp PCR Group A Strep (PCR) Strep agalactiae (PCR) Strep pneumoniae (PCR) P. aeruginosa (PCR) Dion/B-Vanco Res Genes KPC-Carbap Res Gene PCR PFSH Medical History Anasarca Ascites Asthma Elevated brain natriuretic peptide (BNP) level Hepatitis C Hypertension Liver cancer Liver cirrhosis Surgical History History of surgery of liver Family History Father Trauma Mother Sjogrens syndrome Sister No significant medical problems Social History household members: spouse Smoking Status: Former smoker alcohol intake: former Discharge Plan Discharge Plan Patient Disposition: Home Provider Discharge Comment: You were on too high a dose of diuretic which resulted in acute dehydration. I have adjusted your diuretic dosing of the bumetanide and spironolactone. Start back on diuretics tomorrow. Please follow new instructions and have blood work checked next week when you see Dr Cade. Discharge orders & Medications Prescriptions: New bumetanide 2 mg tablet 2 mg PO DAILY Qty: 30 RF: 0 spironolactone 100 mg tablet 100 mg PO BID Qty: 60 RF: 0 Continued albuterol sulfate 90 mcg/actuation aerosol powdr breath activated 2 inhalation INHALATION Q4-6H PRN (Reason: shortness of breath or wheezing) Qty: 1 RF: 6 lactulose 20 gram/30 mL Solution 40 gm PO BID Qty: 30 RF: 0 Discontinued bumetanide 2 mg Tablet 4 mg PO BID RF: 0 spironolactone 50 mg tablet 100 mg PO DAILY RF: 0 Follow up/Referrals: Pancho Payan MD [Primary Care Provider] - Discharge Health Status Multidrug resistant organism: No MDRO Diet/Activity/Treatments Diet: Diet as Tolerated Discharge Data Primary Care Provider: Pancho Payan
== END 2021-03-16 15:13 | disposition home health service (06) | DRG 442 ==
LOC: ED 22:20 → AC 03-11 01:34 → ICU 03-11 03:22 → AC 03-17 13:47
PROVIDERS: Admitting Provider Nurse Practitioner Family; Emergency Provider Emergency Medicine; PCP Internal Medicine; Referring Provider Emergency Medicine; Visit Provider Nurse Practitioner Family
DX: K72.00 Acute and subacute hepatic failure without coma (principal); N17.9 Acute kidney failure, unspecified; R78.81 Bacteremia; K74.69 Other cirrhosis of liver; I12.9 Hypertensive chronic kidney disease with stage 1 through stage 4 chronic kidney disease, or unspecified chronic kidney disease; E86.9 Volume depletion, unspecified; N18.30 Chronic kidney disease, stage 3 unspecified; E66.9 Obesity, unspecified; Z68.35 Body mass index [BMI] 35.0-35.9, adult; Z20.822 Contact with and (suspected) exposure to COVID-19; Z87.891 Personal history of nicotine dependence; Z85.05 Personal history of malignant neoplasm of liver; B95.61 Methicillin susceptible Staphylococcus aureus infection as the cause of diseases classified elsewhere
CPT/HCPCS: 36415; 36592; 70450; 71045; 71260; 74177; 76705; 80053; 80061; 80305; 80320; 80329; 81001; 82140; 82150; 82550; 82962; 83605; 83615; 83690; 83735; 83880; 84145; 84300; 84443; 84484; 85025; 85610; 85730; 87040; 87150; 87186; 87205; 87635; 87797; 93005; 93306; 94760; 96361; 96374; 96375; 96376; 99284; 99285; C9803; G0480; J0690; J0696; J1630; J1642; J2060; J2270; J2405; Q9967

== ENCOUNTER 2021-03-21 12:03 | Emergency (ER) | payer MEDICARE, MEDICAID, SELFPAY ==
[2020-12-16 10:24] VITALS: RESP 12
[2020-12-16 10:41] VITALS: PULSE 72; RESP 13; O2SAT 97
[2021-03-13 17:50] VITALS: BMI 35.4
[2021-03-21] VITALS (15 sets, daily range): BP systolic 101–124; BP diastolic 53–60; PULSE 69–75; RESP 16–26; TEMP 36.7–36.8; O2SAT 96–100
--- NOTE | 2021-03-21 12:19 | DI.RAD.S_ITS ---
PROCEDURE: XR CHEST 1V INDICATIONS: chest pain TECHNIQUE: One view of the chest was acquired. COMPARISON: [facility], CR, XR CHEST 1V, 03/10/2021, 23:33. [facility], CR, XR CHEST 1V, 03/13/2021, 16:02. FINDINGS: Surgical changes and devices: None. Lungs and pleura: There is right hemidiaphragm elevation. Right basilar opacity may be infiltrate or atelectasis. No pleural effusions or pneumothorax. Mediastinum: Mediastinal contours appear normal. Heart size is normal. Bones and chest wall: No suspicious bony lesions. Overlying soft tissues appear unremarkable. IMPRESSION: Right hemidiaphragm elevation. Right basilar opacity may be infiltrate or atelectasis. Dictated by: Nathaniel Walker M.D. on 03/21/2021 at 13:36 Approved by: Nathaniel Walker M.D. on 03/21/2021 at 13:37
[2021-03-21 12:35] LABS: Add Manual Diff / Slide Review NO; Basophils Absolute Auto 0 /uL (0-100); Basophils Percent Auto 0.5 % (0-2); Eosinophils Absolute Auto 300 /uL (0-450); Eosinophils Percent Auto 3.1 % (2-4); Hemoglobin 9.9 g/dL (13.5-17.5); Lymphocytes Absolute Auto 500 /uL (1100-4500); Lymphocytes Percent Auto 5.9 % (25-40); Mean Corpuscular HGB Conc 34.4 % (30-36); Mean Corpuscular Hemoglobin 33.1 PG (26-34); Mean Corpuscular Volume 96.5 fL (80-100); Monocytes Absolute Auto 1000 /uL (0-900); Monocytes Percent Auto 12.3 % (3-14); Neutrophils Absolute Auto 6300 /uL (1500-7000); Neutrophils Percent Auto 78.2 % (50-75); Platelet Count 64 X10^3/uL (150-400); Red Cell Distribution Width 16.4 % (11.6-14.8); White Blood Cell Count 8.1 X10^3/uL (4.5-11.0)
[2021-03-21 12:42] LABS: Ammonia (NH3) < 9 umol/L (9-30)
[2021-03-21 12:45] LABS: Alanine Aminotransferase 40 IU/L (<50); Albumin 2.7 g/dL (3.5-5.0); Albumin Globulin Ratio 0.7 (1.0-2.8); Alkaline Phosphatase 141 U/L (38-126); Aspartate Aminotransferase 91 IU/L (17-59); BUN Creatinine Ratio 17.6 (6-22); Bilirubin Total 1.9 mg/dL (0.2-1.3); Blood Urea Nitrogen 24 mg/dL (9-20); Calcium 8.8 mg/dL (8.4-10.2); Carbon Dioxide 26 mmol/L (22-32); Chloride 98 mmol/L (98-107); Creatine Kinase 70 U/L (55-170); Estimated Glomerular Filt Rate 52.9 mL/min (>60); Glucose 147 mg/dL (80-110); HEMOLYSIS < 15 (0-50); Lipase 516 U/L (23-300); Potassium 4.3 mmol/L (3.4-5.1); Sodium 130 mmol/L (137-145); Total Protein 6.7 g/dL (6.3-8.2)
[2021-03-21 12:57] LABS: Troponin I < 0.012 ng/mL (0.01-0.034)
[2021-03-21 13:03] LABS: Procalcitonin 0.11 ng/mL (<0.5)
--- NOTE | 2021-03-21 13:20 | ED_ITS ---
HPI - Dizziness General Chief Complaint: Dizziness Stated Complaint: nausea/chills/fever Time Seen by Provider: 03/21/21 12:56 Source: patient Mode of arrival: Family Vehicle Limitations: no limitations History of Present Illness HPI Narrative: Patient is a 65-year-old male with hepatic encephalopathy and anxiety currently being treated for bacteremia with a PICC line. He was admitted twice this month already for the same. Today he presents with generalized weakness. It sounds as though he had some anxiety last night. He felt nauseous. He did not throw up no fever or chills no abdominal pain no chest pain. Apparently his hepatic encephalopathy episodes present with severe nausea and vomiting and he rapidly declined. So with the nausea he got extremely anxious. He got slightly lightheaded he did not pass out or lose consciousness. Overall feeling significantly better. I have seen this gentleman in the past and today he looks quite well. Related Data Previous Rx's Medication Instructions Recorded albuterol sulfate 90 mcg/actuation 2 inhalation INHALATION Q4-6H PRN 01/23/20 breath activated powder inhaler #1 each lactulose 40 gm PO BID #30 ml 12/19/20 bumetanide 2 mg PO DAILY #30 tab 03/12/21 spironolactone 100 mg PO BID #60 tab 03/12/21 ceftriaxone 2 g IV Q24H #5 ea 03/16/21 rifaximin [Xifaxan] 550 mg PO BID #60 tab 03/16/21 Allergies Allergy/AdvReac Type Severity Reaction Status Date / Time No Known Drug Allergies Allergy Verified 03/10/21 22:34 Review of Systems Review of Systems ROS Unobtainable: All systems reviewed & are unremarkable except as noted in HPI and below Constitutional Constitutional: Denies chills, Denies fever(s), Denies lethargy and Reports weakness Eyes Eyes: Denies change in vision, Denies eye discharge, Denies irritation and Denies loss of vision Cardiovascular Cardiovascular: Denies chest pain, Denies irregular heart rhythm, Denies lightheadedness, Denies palpitations, Denies dyspnea, Denies dyspnea on exertion and Denies orthopnea Respiratory Respiratory: Denies cough, Denies dyspnea, Denies dyspnea on exertion and Denies wheezing Gastrointestinal Gastrointestinal: Denies abdominal pain, Denies change in bowel habits, Denies diarrhea, Denies nausea and Denies vomiting Musculoskeletal Musculoskeletal: Denies back pain and Denies myalgias Integumentary/Breasts Skin/Breast: Denies pruritus, Denies erythema, Denies rash and Denies wounds Neurologic Neurologic: Denies loss of vision and Reports weakness Psychiatric Psychiatric: Reports anxiety Endocrine Endocrine: Denies palpitations Allergic/Immunologic Allergic/Immunologic: Denies wheezing Patient History Medical History (Updated 03/21/21 @ 14:51 by Tricia Cheung DO) Anasarca Ascites Asthma Elevated brain natriuretic peptide (BNP) level Hepatitis C Hypertension Liver cancer Liver cirrhosis Surgical History History of surgery of liver Family History Father Trauma Mother Sjogrens syndrome Sister No significant medical problems Social History household members: spouse Smoking Status: Former smoker alcohol intake: former Smoking Status: Former smoker alcohol intake frequency: 0-2 drinks per day Substance Use Type: marijuana Exam Initial Vital Signs Initial Vital Signs: Vital Signs Temperature 98.2 F 03/21/21 12:15 Pulse Rate 72 03/21/21 12:15 Respiratory Rate 22 03/21/21 12:15 Blood Pressure 120/60 03/21/21 12:15 Pulse Oximetry 100 03/21/21 12:15 GENERAL: Alert chronically ill 65-year-old male and in no acute distress. HEENT: Head atraumatic,EOMI, pupils reactive, face symmetric, moist mucous membranes CARDIOVASCULAR: Regular rate and rhythm without murmurs, rubs or gallops. RESPIRATORY: Breath sounds equal bilaterally, no wheezes rales or rhonchi. ABDOMEN: Soft, nontender. Normoactive bowel sounds all 4 quadrants. No guarding or rebound. EXTREMITIES: Normal range of motion, no clubbing or edema. Neurovascularly intact NEUROLOGICAL: Alert and oriented x4.Normal gait and speech. Cranial nerves II through XII grossly intact. Good [id number], good [id number], strength equal bilaterally, no dysarthria or aphasia, sensation in tact to soft touch bilaterally, no visual changes, no facial droop SKIN: Warm, dry, no laceration, no petechiae, no rashes or lesions. PICC line noted in right arm no erythema Course Orders Ordered: ED Orders 03/21/21 12:19 XR chest 1V Stat EKG-12 Lead Stat 03/21/21 12:24 Ammonia (NH3) Stat Complete Blood Count AUTO DIFF Stat Comprehensive Metabolic Panel Stat Lipase Stat Procalcitonin Stat Troponin & CK Cardiac Panel Stat 03/21/21 12:50 Blood Culture Stat 03/21/21 13:57 Urine Microscopic Stat 03/21/21 14:02 Consult to [facility] - Building Principal Stat Vital Signs Vital signs: Vital Signs - 8 hr 03/21/21 12:15 03/21/21 12:29 03/21/21 12:30 Temperature 98.2 F Pulse Rate 72 72 73 Respiratory Rate 22 19 16 Blood Pressure 120/60 104/58 L Pulse Oximetry 100 100 100 03/21/21 12:45 03/21/21 12:49 03/21/21 13:00 Temperature Pulse Rate 72 72 72 Respiratory Rate 23 23 20 Blood Pressure 110/56 L Pulse Oximetry 99 100 96 03/21/21 13:15 03/21/21 13:30 03/21/21 13:41 Temperature Pulse Rate 74 73 69 Respiratory Rate 26 H 22 18 Blood Pressure 124/59 L Pulse Oximetry 100 100 100 03/21/21 13:45 03/21/21 14:00 03/21/21 14:15 Temperature Pulse Rate 72 73 72 Respiratory Rate 19 22 Blood Pressure Pulse Oximetry 96 96 100 03/21/21 14:30 03/21/21 14:45 03/21/21 14:51 Temperature 98.1 F Pulse Rate 75 74 72 Respiratory Rate 21 23 20 Blood Pressure 101/53 L Pulse Oximetry 100 100 100 MDM - Dizziness Lab Data Attestation: I reviewed the patient's lab results. Result diagrams: 03/21/21 12:24 03/21/21 12:24 Labs: Lab Results 03/21/21 03/21/21 03/21/21 Range/Units 12:24 12:24 12:24 WBC 8.1 (4.5-11.0) X10^3/uL RBC 3.00 L (4.5-5.9) X10^6/uL Hgb 9.9 L (13.5-17.5) g/dL Hct 29.0 L (41-53) % MCV 96.5 (80-100) fL MCH 33.1 (26-34) PG MCHC 34.4 (30-36) % RDW 16.4 H (11.6-14.8) % Plt Count 64 L (150-400) X10^3/uL Neut % (Auto) 78.2 H (50-75) % Lymph % (Auto) 5.9 L (25-40) % [place] % (Auto) 12.3 (3-14) % Eos % (Auto) 3.1 (2-4) % Baso % (Auto) 0.5 (0-2) % Neut # (Auto) 6300 (2600-6565) /uL Lymph # (Auto) 500 L (2672-3874) /uL [place]linger # (Auto) 1000 H (0-900) /uL Eos # (Auto) 300 (0-450) /uL Baso # (Auto) 0 (0-100) /uL Sodium 130 L (137-145) mmol/L Potassium 4.3 (3.4-5.1) mmol/L Chloride 98 (98-107) mmol/L Carbon Dioxide 26 (22-32) mmol/L BUN 24 H (9-20) mg/dL Creatinine 1.36 H (0.66-1.25) mg/dL Estimated GFR 52.9 L (>60) mL/min BUN/Creatinine Ratio 17.6 (6-22) Glucose 147 H (80-110) mg/dL Calcium 8.8 (8.4-10.2) mg/dL Total Bilirubin 1.9 H (0.2-1.3) mg/dL AST 91 H (17-59) IU/L ALT 40 (<50) IU/L Alkaline Phosphatase 141 H (38-126) U/L Ammonia < 9 L (9-30) umol/L Total Creatine Kinase 70 (55-170) U/L CK-MB (CK-2) TNP CK-MB (CK-2) Rel Index TNP Troponin I < 0.012 (0.01-0.034) ng/mL Total Protein 6.7 (6.3-8.2) g/dL Albumin 2.7 L (3.5-5.0) g/dL Globulin 4.0 (1.7-4.1) g/dL Albumin/Globulin Ratio 0.7 L (1.0-2.8) Lipase 516 H (23-300) U/L Procalcitonin (<0.5) ng/mL Urine RBC (0-5/HPF) Urine WBC (0-5/HPF) Ur Squamous Epith Cells (0-5/HPF) Amorphous Sediment Urine Bacteria (None) Ur Culture Indicated? 03/21/21 03/21/21 Range/Units 12:24 13:57 WBC (4.5-11.0) X10^3/uL RBC (4.5-5.9) X10^6/uL Hgb (13.5-17.5) g/dL Hct (41-53) % MCV (80-100) fL MCH (26-34) PG MCHC (30-36) % RDW (11.6-14.8) % Plt Count (150-400) X10^3/uL Neut % (Auto) (50-75) % Lymph % (Auto) (25-40) % [place]linger % (Auto) (3-14) % Eos % (Auto) (2-4) % Baso % (Auto) (0-2) % Neut # (Auto) (2856-9626) /uL Lymph # (Auto) (4742-7557) /uL [place]linger # (Auto) (0-900) /uL Eos # (Auto) (0-450) /uL Baso # (Auto) (0-100) /uL Sodium (137-145) mmol/L Potassium (3.4-5.1) mmol/L Chloride (98-107) mmol/L Carbon Dioxide (22-32) mmol/L BUN (9-20) mg/dL Creatinine (0.66-1.25) mg/dL Estimated GFR (>60) mL/min BUN/Creatinine Ratio (6-22) Glucose (80-110) mg/dL Calcium (8.4-10.2) mg/dL Total Bilirubin (0.2-1.3) mg/dL AST (17-59) IU/L ALT (<50) IU/L Alkaline Phosphatase (38-126) U/L Ammonia (9-30) umol/L Total Creatine Kinase (55-170) U/L CK-MB (CK-2) CK-MB (CK-2) Rel Index Troponin I (0.01-0.034) ng/mL Total Protein (6.3-8.2) g/dL Albumin (3.5-5.0) g/dL Globulin (1.7-4.1) g/dL Albumin/Globulin Ratio (1.0-2.8) Lipase (23-300) U/L Procalcitonin 0.11 (<0.5) ng/mL Urine RBC 1-5/hpf D (0-5/HPF) Urine WBC None seen (0-5/HPF) Ur Squamous Epith Cells 0-1 /hpf (0-5/HPF) Amorphous Sediment 1+ Urine Bacteria None seen (None) Ur Culture Indicated? Cult not indicated Urine Dip Bedside Urine Glucose Negative Bedside Urine Bilirubin - Negative Bedside Urine Ketone - Negative Urine Specific [place] 1.020 Bedside Urine Occult Blood ++ Bedside Urine pH 6 Bedside Urine Protein - Negative Bedside Urine Urobilinogen - Negative Bedside Urine Nitrite - Negative Bedside Urine Leukocytes - Negative Esterase Imaging Data Chest x-ray: Radiologist's Impression: PROCEDURE: XR CHEST 1V INDICATIONS: chest pain TECHNIQUE: One view of the chest was acquired. COMPARISON: [facility], CR, XR CHEST 1V, 03/10/2021, 23:33. [facility], CR, XR CHEST 1V, 03/13/2021, 16:02. FINDINGS: Surgical changes and devices: None. Lungs and pleura: There is right hemidiaphragm elevation. Right basilar opacity may be infiltrate or atelectasis. No pleural effusions or pneumothorax. Mediastinum: Mediastinal contours appear normal. Heart size is normal. Bones and chest wall: No suspicious bony lesions. Overlying soft tissues appear unremarkable. IMPRESSION: Right hemidiaphragm elevation. Right basilar opacity may be infiltrate or atelectasis. Dictated by: Nathaniel Walker M.D. on 03/21/2021 at 13:36 ECG Data Attestation: I personally reviewed and interpreted this ECG as follows: Prior ECG tracings: available for review Interpretation: Normal sinus rhythm rate 70 p.r. interval [address] k[place] nges or T-wave inversions similar to prior EKG MDM Narrative Medical decision making narrative: Social Work has been in to evaluate patient they have home health care. He does qualify for [place]. Patient overall appears the best that I have ever seen him look he does not appear to have acute infection certainly does not have a [place] encephalopathy. At this time it sounds the patient had an anxiety reaction based on his p revious admissions. feels comfortable going home he would like to go 1, he meets no admission criteria. Discharge Plan Departure Patient Disposition: Home Clinical Impression: Anxiety Instructions: DI for Anxiety -- Adult Activity Restrictions/Additional Instructions: *You have been diagnosed with anxiety *What to do: At this time blood work is overall reassuring you appear well. I think that there was small anxiety attack last night based on everything you have gone through. *Continue to take medications as directed Finish IV antibiotics as prescribed *Follow up with your primary care provider in 2-3 days *Return to ER if you should have confusion, fever, persistent vomiting or any new, worsening or concerning symptoms Prescriptions: No Action albuterol sulfate 90 mcg/actuation aerosol powdr breath activated 2 inhalation INHALATION Q4-6H PRN (Reason: shortness of breath or wheezing) Qty: 1 RF: 6 bumetanide 2 mg tablet 2 mg PO DAILY Qty: 30 RF: 0 spironolactone 100 mg tablet 100 mg PO BID Qty: 60 RF: 0 lactulose 20 gram/30 mL Solution 40 gm PO BID Qty: 30 RF: 0 Xifaxan 550 mg Tablet 550 mg PO BID Qty: 60 RF: 0 ceftriaxone 2 gram recon soln 2 g IV Q24H Qty: 5 RF: 0 Referrals: Pancho Payan MD [Primary Care Provider] -
[2021-03-21 13:58] LABS: Bacteria Urine None Seen; WBC Urine None Seen (0-5/HPF)
[2021-03-21 14:05] LABS: Amorphous Sediment Urine 1+; Culture Indicated Urine Cult Not Indicated; RBC Urine 1-5/HPF (0-5/HPF); Squamous Epithelial Cell Urine 0-1 /HPF (0-5/HPF)
--- NOTE | 2021-03-21 14:40 | CM.SWNOTE ---
FOOD MANAGEMENT AIDE Note FOOD MANAGEMENT AIDE receives consult and enters room to meet with patient and life partner Tayler. Patient is 65 y/o male presents to this ED with concerns of nausea, chills and fever since last evening. Patient is A/Ox4. Patient currently receives PT, OT, FOOD MANAGEMENT AIDE (Terrie) and RN services through [facility] and they were recently continued in early March 2021. Patient has been admitted to this hospital twice this month due to generalized weakness with dx of acute hepatic encephalopathy. Patient d/c'd from acute care on 03/16/21 with and infusion services. Patient and life partner report that life partner works radio time sales supervisor and has taken several days off when patient is in need of care or in the hospital. FOOD MANAGEMENT AIDE discusses paid family medical leave and encourges patient's spouse to inquire about applying to see if she qualifies. Spouse reports that she is interested in [facility] for patient and would like to be paid to be a caregiver and go through any needed training process. FOOD MANAGEMENT AIDE provides senior resource guide book with contact information for [facility] and home and community geriatric case manager through [facility] and [facility]. FOOD MANAGEMENT AIDE also provides information about [facility] eligibility. Patient currently has Medicaid and Medicare insurance. Patient and spouse report that spouse is the main caregiver right now but they receive a lot of support from their restorationist community. Patient states he is independent with cooking, and eating, toileting and showering. Patient reports he has a raised toilet at home as well as a shower seat. Spouse reports that she is home when patient showers in case he is in need of assistance and she assists patient with getting dressed. It is reported that patient is never able to sleep and has not been able to have a sleep study yet. FOOD MANAGEMENT AIDE encourages patient to have appt scheduled with PCP Dr. Payan to inform him of recent hospital visits and inquire about sleep study. Patient and spouse indicate agreement and understanding and report they will have an appt scheduled soon. FOOD MANAGEMENT AIDE to f/u with patient and spouse on Wednesday for further assistance. FOOD MANAGEMENT AIDE calls [facility] (Ph. # [phone]) and leaves requesting return call. FOOD MANAGEMENT AIDE reviews the above with ED Provider Dr. Cheung and she indicates agreement and understanding. Plan: patient to d/c home with spouse, current referral with all services, upcoming PCP appt and pending [facility]. Dior Moreno MSW
== END 2021-03-21 14:57 | disposition home or self-care (01) ==
PROVIDERS: Emergency Provider Emergency Medicine; PCP Internal Medicine
DX: F41.9 Anxiety disorder, unspecified (principal); R11.2 Nausea with vomiting, unspecified; R07.9 Chest pain, unspecified
CPT/HCPCS: 36415; 71045; 80053; 81003; 81015; 82140; 82550; 83690; 84145; 84484; 85025; 87040; 93005; 99284

== ENCOUNTER 2021-03-23 05:21 | Emergency (ER) | payer MEDICARE, MEDICAID, SELFPAY ==
[2020-12-16 10:24] VITALS: RESP 12
[2020-12-16 10:41] VITALS: PULSE 72; RESP 13; O2SAT 97
[2021-03-13 17:50] VITALS: BMI 35.4
[2021-03-23 05:30] VITALS: BP 117/56; PULSE 68; RESP 17; TEMP 36.3; O2SAT 96; BMI 38.9
--- NOTE | 2021-03-23 05:31 | ED.GENADULT ---
HPI - General Adult General Stated complaint: Needs pic line removed Time Seen by Provider: 03/23/21 05:27 Source: patient Mode of arrival: Ambulatory Limitations: no limitations History of Present Illness HPI narrative: Patient is a 65-year-old male who is been here to this emergency department multiple times over the past several days/weeks mostly for hepatic encephalopathy. During his 1st admission to the hospital it was found that 1 of his blood culture bottles was positive for Staph aureus. It was felt that it was potentially a contaminant however antibiotics were continued. He has had subsequent blood cultures that have been negative. He was to complete a course of ceftriaxone on 12/19/2020 which she did complete and then was instructed to have the PICC line removed. He states that the home health could not come out to removed the PICC lines to he is here in the emergency department have this done. Related Data Previous Rx's Medication Instructions Recorded albuterol sulfate 90 mcg/actuation 2 inhalation INHALATION Q4-6H PRN 01/23/20 breath activated powder inhaler #1 each lactulose 40 gm PO BID #30 ml 12/19/20 bumetanide 2 mg PO DAILY #30 tab 03/12/21 spironolactone 100 mg PO BID #60 tab 03/12/21 ceftriaxone 2 g IV Q24H #5 ea 03/16/21 rifaximin [Xifaxan] 550 mg PO BID #60 tab 03/16/21 Allergies Allergy/AdvReac Type Severity Reaction Status Date / Time No Known Drug Allergies Allergy Verified 03/10/21 22:34 Review of Systems Cardiovascular Cardiovascular: Denies chest pain and Denies dyspnea Respiratory Respiratory: Denies dyspnea Gastrointestinal Gastrointestinal: Denies abdominal pain Patient History Medical History (Updated 03/23/21 @ 05:35 by Lex Pina DO) Anasarca Ascites Asthma Elevated brain natriuretic peptide (BNP) level Hepatitis C Hypertension Liver cancer Liver cirrhosis Surgical History History of surgery of liver Family History Father Trauma Mother Sjogrens syndrome Sister No significant medical problems Social History household members: spouse Smoking Status: Former smoker alcohol intake: former Smoking Status: Former smoker alcohol intake frequency: 0-2 drinks per day Substance Use Type: marijuana Exam Const General: cooperative Limitations: mental status not altered Skin Lesions: no lesions Rashes: no rashes Neuro General: patient alert, patient awake and patient oriented x3 Cognition: normal cognition Speech: speech normal Extrem General: normal to inspection Other: Midline in right upper extremity Psych Appearance: grossly normal and well kempt Medical Decision Making MDM Narrative Medical decision making narrative: His midline was removed without incident. Will have patient follow-up with primary provider. Discharge Plan Departure Patient Disposition: Home Clinical Impression: PICC (peripherally inserted central catheter) removal Activity Restrictions/Additional Instructions: Continue all of your medications as directed I do recommend that you contact your primary provider for follow-up. Return to the emergency department for any new or worsening symptoms Prescriptions: No Action albuterol sulfate 90 mcg/actuation aerosol powdr breath activated 2 inhalation INHALATION Q4-6H PRN (Reason: shortness of breath or wheezing) Qty: 1 RF: 6 bumetanide 2 mg tablet 2 mg PO DAILY Qty: 30 RF: 0 spironolactone 100 mg tablet 100 mg PO BID Qty: 60 RF: 0 lactulose 20 gram/30 mL Solution 40 gm PO BID Qty: 30 RF: 0 Xifaxan 550 mg Tablet 550 mg PO BID Qty: 60 RF: 0 ceftriaxone 2 gram recon soln 2 g IV Q24H Qty: 5 RF: 0 Referrals: Pancho Payan MD [Primary Care Provider] -
== END 2021-03-23 05:46 | disposition home or self-care (01) ==
PROVIDERS: Emergency Provider Emergency Medicine; PCP Internal Medicine
DX: Z45.2 Encounter for adjustment and management of vascular access device (principal)
CPT/HCPCS: 99281

== ENCOUNTER 2021-03-31 21:40 | Observation (INO) | payer MEDICARE, MEDICAID, SELFPAY ==
[2020-12-16 10:24] VITALS: RESP 12
[2020-12-16 10:41] VITALS: PULSE 72; RESP 13; O2SAT 97
[2021-03-13 17:50] VITALS: BMI 35.4
[2021-03-31 21:45] VITALS: BMI 36.2
--- NOTE | 2021-03-31 22:16 | ED.NAVMDI ---
HPI - Nausea/Vomiting/Diarrhea General Chief complaint: Nausea/Vomiting/Diarrhea Stated complaint: ABD PAIN AND VOMITING Time Seen by Provider: 03/31/21 21:56 Source: patient Mode of arrival: Ambulatory Limitations: no limitations History of Present Illness HPI Narrative: 65-year-old male former smoker with known liver disease and frequent recent visits for altered mental status thought to be related to hepatic encephalopathy requiring admissions, administration of lactulose and subsequent discharge. There are has been persistent nausea and vomiting and increasing confusion over the course of the day. gave a dose of lactulose just prior to his arrival and states there has been no change in medications or diet or any obvious excuse for why his symptoms may be exacerbating. There has been no recent trauma nor fever or chills. He denies any pain. MD complaint: nausea and vomiting Onset (ago): hour(s) Description of Vomiting: food contents Description of Diarrhea: none Associated Abdominal Pain: No Severity: moderate Associated symptoms: denies other symptoms Related Data Previous Rx's Medication Instructions Recorded albuterol sulfate 90 mcg/actuation 2 inhalation INHALATION Q4-6H PRN 01/23/20 breath activated powder inhaler #1 each lactulose 40 gm PO BID #30 ml 12/19/20 bumetanide 2 mg PO DAILY #30 tab 03/12/21 spironolactone 100 mg PO BID #60 tab 03/12/21 Allergies Allergy/AdvReac Type Severity Reaction Status Date / Time No Known Drug Allergies Allergy Verified 03/10/21 22:34 Review of Systems Review of Systems ROS Unobtainable: Unobtainable due to mental status/LOC Patient History Medical History Anasarca Ascites Asthma Elevated brain natriuretic peptide (BNP) level Hepatitis C Hypertension Liver cancer Liver cirrhosis Surgical History History of surgery of liver Family History Father Trauma Mother Sjogrens syndrome Sister No significant medical problems Social History household members: spouse Smoking Status: Former smoker alcohol intake: former Smoking Status: Former smoker alcohol intake frequency: 0-2 drinks per day Substance Use Type: marijuana Exam Narrative Exam Narrative: GENERAL: [65] year old patient appears stated age. Chronically ill, actively vomiting, no hematemesis Well-developed patient, in mild distress. HEAD: Atraumatic. Normocephalic. EYES: Pupils equal round and reactive. Extraocular motions intact. No scleral icterus. No injection or drainage. ENT: Nose without bleeding, purulent drainage. Throat without erythema, tonsillar hypertrophy or exudate. Airway patent. NECK: Trachea midline. Non tender CARDIOVASCULAR: Regular rate and rhythm without murmurs, gallops, or rubs. RESPIRATORY: Clear to auscultation. Breath sounds equal bilaterally. No wheezes, rales, or rhonchi. GASTROINTESTINAL: Abdomen soft, mild distension, no obvious pain EXTREMITIES: No edema or joint tenderness. BACK: Nontender without deformity or crepitance. No flank tenderness. NEURO: Awake, confused about circumstances of the event and date, aware of person and place SKIN: No rash or erythema of visible areas Initial Vital Signs Initial Vital Signs: Vital Signs Pulse Rate 95 H 03/31/21 23:20 Respiratory Rate 26 H 03/31/21 23:20 Pulse Oximetry 97 03/31/21 23:20 Course Orders Ordered: ED Orders 04/02/21 05:00 Ammonia (NH3) DAILY Complete Blood Count AUTO DIFF DAILY Comprehensive Metabolic Panel DAILY Magnesium DAILY 04/03/21 05:00 Ammonia (NH3) DAILY Complete Blood Count AUTO DIFF DAILY Comprehensive Metabolic Panel DAILY Magnesium DAILY Sodium Chloride (Normal Saline 0.9%) 1,000 mls @ 100 mls/hr IV CONT TIERNEY Last Infusion: 04/01/21 13:36 Dose: 100 mls/hr Documented by: Infusion: 04/01/21 11:37 Dose: 0 mls/hr Documented by: [email or web address] Admin: 04/01/21 10:13 Dose: 100 mls/hr Documented by: [email or web address] Lactulose (Lactulose 20 Gm/30 Ml Solution) 20 gm PO Q4HR TIERNEY Last Admin: 04/01/21 21:34 Dose: 20 gm Documented by: Admin: 04/01/21 18:05 Dose: 20 gm Documented by: Admin: 04/01/21 13:36 Dose: 20 gm Documented by: Admin: 04/01/21 10:09 Dose: 20 gm Documented by: Admin: 04/01/21 06:09 Dose: 20 gm Documented by: Admin: 04/01/21 03:38 Dose: 20 gm Documented by: ABEL Naloxone HCl (Naloxone 0.4 Mg/Ml Vial) 0.2 mg IV Q2MIN PRN PRN Reason: Opiate Reversal Ondansetron HCl (Ondansetron 4 Mg/2 Ml Inj) 4 mg IV Q8HR PRN PRN Reason: Nausea And Vomiting Rifaximin (Rifaximin 550 Mg Tablet) 550 mg PO BID [facility] Last Admin: 04/01/21 21:34 Dose: 550 mg Documented by: Admin: 04/01/21 10:09 Dose: 550 mg Documented by: AROLDO Discontinued Medications Enoxaparin Sodium (Enoxaparin 40 Mg/0.4 Ml Syringe) 40 mg SUBCUT DAILY [facility] Sodium Chloride (Normal Saline 0.9%) 1,000 mls @ 1,000 mls/hr IV BOLUS ONE Stop: 03/31/21 23:16 Last Infusion: 04/01/21 01:52 Dose: 0 mls/hr Documented by: Admin: 03/31/21 22:31 Dose: 1,000 mls/hr Documented by: VERONIKA Lactated Ringer's (Lactated Ringers) 1,000 mls @ 100 mls/hr IV CONT [facility] Last Infusion: 04/01/21 05:04 Dose: 0 mls/hr Documented by: Admin: 04/01/21 02:42 Dose: 100 mls/hr Documented by: ABEL Ketorolac Tromethamine (Ketorolac 30 Mg/Ml Vial) 30 mg IV Q6HR PRN PRN Reason: Pain, Severe (7-10) Stop: 04/06/21 01:06 Ketorolac Tromethamine (Ketorolac 30 Mg/Ml Vial) 10 mg IV NOW ONE Stop: 04/01/21 05:19 Last Admin: 04/01/21 05:23 Dose: 10 mg Documented by: ABEL Lactulose (Lactulose 20 Gm/30 Ml Solution) 20 gm PO NOW ONE Stop: 03/31/21 22:43 Last Admin: 03/31/21 23:28 Dose: 20 gm Documented by: VERONIKA Ondansetron HCl (Ondansetron 4 Mg/2 Ml Inj) 4 mg IV NOW ONE Stop: 03/31/21 22:18 Last Admin: 03/31/21 22:31 Dose: 4 mg Documented by: VERONIKA Consultations Consultation #1: We currently have no available beds, [facility] has no beds, [facility] has no beds, [facility] has beds. patient evaluated by hospitalist, will keep here pending coags. patient accepted by hospitalist and managed on their service. Vital Signs Vital signs: Vital Signs - 8 hr 03/31/21 23:20 03/31/21 23:30 04/01/21 00:00 Pulse Rate 95 H 94 H 87 Respiratory Rate 26 H 24 21 Blood Pressure 145/87 H 143/62 H Pulse Oximetry 97 99 98 MDM - Nausea/Vomiting/Diarrhea Lab Data Result diagrams: 04/01/21 03:50 04/01/21 03:50 Labs: Lab Results 03/31/21 03/31/21 03/31/21 Range/Units 22:13 22:13 22:13 WBC 8.0 (4.5-11.0) X10^3/uL RBC 3.25 L (4.5-5.9) X10^6/uL Hgb 10.7 L (13.5-17.5) g/dL Hct 31.7 L (41-53) % MCV 97.6 (80-100) fL MCH 32.9 (26-34) PG MCHC 33.7 (30-36) % RDW 16.6 H (11.6-14.8) % Plt Count 69 L (150-400) X10^3/uL Neut % (Auto) 70.3 (50-75) % Lymph % (Auto) 12.8 L (25-40) % [facility] % (Auto) 12.4 (3-14) % Eos % (Auto) 3.6 (2-4) % Baso % (Auto) 0.9 (0-2) % Neut # (Auto) 5600 (6738-4909) /uL Lymph # (Auto) 1000 L (4125-8885) /uL [facility] # (Auto) 1000 H (0-900) /uL Eos # (Auto) 300 (0-450) /uL Baso # (Auto) 100 (0-100) /uL PT (10.1-12.7) SECONDS INR (0.9-1.3) APTT (26.4-36.2) SECONDS Sodium 131 L (137-145) mmol/L Potassium 4.4 (3.4-5.1) mmol/L Chloride 95 L (98-107) mmol/L Carbon Dioxide 27 (22-32) mmol/L BUN 38 H (9-20) mg/dL Creatinine 1.88 H (0.66-1.25) mg/dL Estimated GFR 36.4 L (>60) mL/min BUN/Creatinine Ratio 20.2 (6-22) Glucose 136 H (80-110) mg/dL Lactate (0.7-2.1) mmol/L Calcium 9.6 (8.4-10.2) mg/dL Magnesium (1.6-2.3) mg/dL Total Bilirubin 2.8 H (0.2-1.3) mg/dL GGT (15-73) U/L AST 98 H (17-59) IU/L ALT 49 (<50) IU/L Alkaline Phosphatase 193 H (38-126) U/L Ammonia 300 H (9-30) umol/L NT-Pro-B Natriuret Pep (<125) pg/mL Total Protein 7.6 (6.3-8.2) g/dL Albumin 3.3 L (3.5-5.0) g/dL Globulin 4.3 H (1.7-4.1) g/dL Albumin/Globulin Ratio 0.8 L (1.0-2.8) Amylase (30-110) U/L Lipase 450 H (23-300) U/L SARS-CoV-2 (PCR) (Negative) 03/31/21 04/01/21 04/01/21 Range/Units 22:13 00:10 00:10 WBC (4.5-11.0) X10^3/uL RBC (4.5-5.9) X10^6/uL Hgb (13.5-17.5) g/dL Hct (41-53) % MCV (80-100) fL MCH (26-34) PG MCHC (30-36) % RDW (11.6-14.8) % Plt Count (150-400) X10^3/uL Neut % (Auto) (50-75) % Lymph % (Auto) (25-40) % [facility] % (Auto) (3-14) % Eos % (Auto) (2-4) % Baso % (Auto) (0-2) % Neut # (Auto) (0491-1687) /uL Lymph # (Auto) (4444-3361) /uL [facility] # (Auto) (0-900) /uL Eos # (Auto) (0-450) /uL Baso # (Auto) (0-100) /uL PT 16.0 H (10.1-12.7) SECONDS INR 1.4 H (0.9-1.3) APTT 35 (26.4-36.2) SECONDS Sodium (137-145) mmol/L Potassium (3.4-5.1) mmol/L Chloride (98-107) mmol/L Carbon Dioxide (22-32) mmol/L BUN (9-20) mg/dL Creatinine (0.66-1.25) mg/dL Estimated GFR (>60) mL/min BUN/Creatinine Ratio (6-22) Glucose (80-110) mg/dL Lactate 3.7 H (0.7-2.1) mmol/L Calcium (8.4-10.2) mg/dL Magnesium (1.6-2.3) mg/dL Total Bilirubin (0.2-1.3) mg/dL GGT 176 H (15-73) U/L AST (17-59) IU/L ALT (<50) IU/L Alkaline Phosphatase (38-126) U/L Ammonia (9-30) umol/L NT-Pro-B Natriuret Pep (<125) pg/mL Total Protein (6.3-8.2) g/dL Albumin (3.5-5.0) g/dL Globulin (1.7-4.1) g/dL Albumin/Globulin Ratio (1.0-2.8) Amylase (30-110) U/L Lipase (23-300) U/L SARS-CoV-2 (PCR) (Negative) 04/01/21 04/01/21 04/01/21 Range/Units 00:10 00:50 03:50 WBC 8.2 (4.5-11.0) X10^3/uL RBC 2.80 L (4.5-5.9) X10^6/uL Hgb 9.4 L (13.5-17.5) g/dL Hct 27.2 L (41-53) % MCV 97.3 (80-100) fL MCH 33.4 (26-34) PG MCHC 34.4 (30-36) % RDW 16.2 H (11.6-14.8) % Plt Count 54 L (150-400) X10^3/uL Neut % (Auto) 86.4 H (50-75) % Lymph % (Auto) 4.1 L (25-40) % [facility] % (Auto) 8.5 (3-14) % Eos % (Auto) 0.5 L (2-4) % Baso % (Auto) 0.5 (0-2) % Neut # (Auto) 7100 H (2721-5854) /uL Lymph # (Auto) 300 L (2630-4188) /uL [facility] # (Auto) 700 (0-900) /uL Eos # (Auto) 0 (0-450) /uL Baso # (Auto) 0 (0-100) /uL PT (10.1-12.7) SECONDS INR (0.9-1.3) APTT (26.4-36.2) SECONDS Sodium (137-145) mmol/L Potassium (3.4-5.1) mmol/L Chloride (98-107) mmol/L Carbon Dioxide (22-32) mmol/L BUN (9-20) mg/dL Creatinine (0.66-1.25) mg/dL Estimated GFR (>60) mL/min BUN/Creatinine Ratio (6-22) Glucose (80-110) mg/dL Lactate (0.7-2.1) mmol/L Calcium (8.4-10.2) mg/dL Magnesium 2.0 (1.6-2.3) mg/dL Total Bilirubin (0.2-1.3) mg/dL GGT (15-73) U/L AST (17-59) IU/L ALT (<50) IU/L Alkaline Phosphatase (38-126) U/L Ammonia (9-30) umol/L NT-Pro-B Natriuret Pep (<125) pg/mL Total Protein (6.3-8.2) g/dL Albumin (3.5-5.0) g/dL Globulin (1.7-4.1) g/dL Albumin/Globulin Ratio (1.0-2.8) Amylase 142 H (30-110) U/L Lipase (23-300) U/L SARS-CoV-2 (PCR) Negative (Negative) 04/01/21 04/01/21 04/01/21 Range/Units 03:50 03:50 03:50 WBC (4.5-11.0) X10^3/uL RBC (4.5-5.9) X10^6/uL Hgb (13.5-17.5) g/dL Hct (41-53) % MCV (80-100) fL MCH (26-34) PG MCHC (30-36) % RDW (11.6-14.8) % Plt Count (150-400) X10^3/uL Neut % (Auto) (50-75) % Lymph % (Auto) (25-40) % [facility] % (Auto) (3-14) % Eos % (Auto) (2-4) % Baso % (Auto) (0-2) % Neut # (Auto) (6378-4911) /uL Lymph # (Auto) (9132-3034) /uL [facility] # (Auto) (0-900) /uL Eos # (Auto) (0-450) /uL Baso # (Auto) (0-100) /uL PT 17.4 H (10.1-12.7) SECONDS INR 1.5 H (0.9-1.3) APTT (26.4-36.2) SECONDS Sodium 132 L (137-145) mmol/L Potassium 4.8 (3.4-5.1) mmol/L Chloride 97 L (98-107) mmol/L Carbon Dioxide 26 (22-32) mmol/L BUN 40 H (9-20) mg/dL Creatinine 1.70 H (0.66-1.25) mg/dL Estimated GFR 40.9 L (>60) mL/min BUN/Creatinine Ratio 23.5 H (6-22) Glucose 153 H (80-110) mg/dL Lactate (0.7-2.1) mmol/L Calcium 9.1 (8.4-10.2) mg/dL Magnesium 2.0 (1.6-2.3) mg/dL Total Bilirubin 3.5 H (0.2-1.3) mg/dL GGT (15-73) U/L AST 88 H (17-59) IU/L ALT 43 (<50) IU/L Alkaline Phosphatase 143 H (38-126) U/L Ammonia 101 H (9-30) umol/L NT-Pro-B Natriuret Pep 452 H (<125) pg/mL Total Protein 6.4 (6.3-8.2) g/dL Albumin 2.7 L (3.5-5.0) g/dL Globulin 3.7 (1.7-4.1) g/dL Albumin/Globulin Ratio 0.7 L (1.0-2.8) Amylase (30-110) U/L Lipase (23-300) U/L SARS-CoV-2 (PCR) (Negative) 04/01/21 Range/Units 03:50 WBC (4.5-11.0) X10^3/uL RBC (4.5-5.9) X10^6/uL Hgb (13.5-17.5) g/dL Hct (41-53) % MCV (80-100) fL MCH (26-34) PG MCHC (30-36) % RDW (11.6-14.8) % Plt Count (150-400) X10^3/uL Neut % (Auto) (50-75) % Lymph % (Auto) (25-40) % [facility] % (Auto) (3-14) % Eos % (Auto) (2-4) % Baso % (Auto) (0-2) % Neut # (Auto) (1568-6860) /uL Lymph # (Auto) (7489-2916) /uL [facility] # (Auto) (0-900) /uL Eos # (Auto) (0-450) /uL Baso # (Auto) (0-100) /uL PT (10.1-12.7) SECONDS INR (0.9-1.3) APTT (26.4-36.2) SECONDS Sodium (137-145) mmol/L Potassium (3.4-5.1) mmol/L Chloride (98-107) mmol/L Carbon Dioxide (22-32) mmol/L BUN (9-20) mg/dL Creatinine (0.66-1.25) mg/dL Estimated GFR (>60) mL/min BUN/Creatinine Ratio (6-22) Glucose (80-110) mg/dL Lactate 4.0 H (0.7-2.1) mmol/L Calcium (8.4-10.2) mg/dL Magnesium (1.6-2.3) mg/dL Total Bilirubin (0.2-1.3) mg/dL GGT (15-73) U/L AST (17-59) IU/L ALT (<50) IU/L Alkaline Phosphatase (38-126) U/L Ammonia (9-30) umol/L NT-Pro-B Natriuret Pep (<125) pg/mL Total Protein (6.3-8.2) g/dL Albumin (3.5-5.0) g/dL Globulin (1.7-4.1) g/dL Albumin/Globulin Ratio (1.0-2.8) Amylase (30-110) U/L Lipase (23-300) U/L SARS-CoV-2 (PCR) (Negative) Discharge Plan Departure Patient Disposition: Admitted as Observation Clinical Impression: Acute hepatic encephalopathy Admit Date/Time: 04/01/21 08:01 Admit Provider: Kerry Hurst
[2021-03-31 22:30] LABS: Ammonia (NH3) 300 umol/L (9-30)
[2021-03-31] MEDS: SODIUM CHLORIDE 0.9% 1,000 ML 1000 ML IV (22:31)
[2021-03-31] MEDS: ONDANSETRON 4 MG/2 ML INJ IV (22:31)
[2021-03-31 22:32] LABS: Alanine Aminotransferase 49 IU/L (<50); Albumin 3.3 g/dL (3.5-5.0); Albumin Globulin Ratio 0.8 (1.0-2.8); Alkaline Phosphatase 193 U/L (38-126); Aspartate Aminotransferase 98 IU/L (17-59); BUN Creatinine Ratio 20.2 (6-22); Bilirubin Total 2.8 mg/dL (0.2-1.3); Blood Urea Nitrogen 38 mg/dL (9-20); Calcium 9.6 mg/dL (8.4-10.2); Carbon Dioxide 27 mmol/L (22-32); Chloride 95 mmol/L (98-107); Estimated Glomerular Filt Rate 36.4 mL/min (>60); Globulin 4.3 g/dL (1.7-4.1); Glucose 136 mg/dL (80-110); HEMOLYSIS < 15 (0-50); Lipase 450 U/L (23-300); Potassium 4.4 mmol/L (3.4-5.1); Sodium 131 mmol/L (137-145); Total Protein 7.6 g/dL (6.3-8.2)
[2021-03-31 22:33] LABS: Add Manual Diff / Slide Review NO; Basophils Absolute Auto 100 /uL (0-100); Basophils Percent Auto 0.9 % (0-2); Eosinophils Absolute Auto 300 /uL (0-450); Eosinophils Percent Auto 3.6 % (2-4); Hematocrit 31.7 % (41-53); Hemoglobin 10.7 g/dL (13.5-17.5); Lymphocytes Absolute Auto 1000 /uL (1100-4500); Lymphocytes Percent Auto 12.8 % (25-40); Mean Corpuscular HGB Conc 33.7 % (30-36); Mean Corpuscular Hemoglobin 32.9 PG (26-34); Mean Corpuscular Volume 97.6 fL (80-100); Monocytes Absolute Auto 1000 /uL (0-900); Monocytes Percent Auto 12.4 % (3-14); Neutrophils Absolute Auto 5600 /uL (1500-7000); Neutrophils Percent Auto 70.3 % (50-75); Platelet Count 69 X10^3/uL (150-400); Red Blood Cell Count 3.25 X10^6/uL (4.5-5.9); Red Cell Distribution Width 16.6 % (11.6-14.8)
--- NOTE | 2021-03-31 23:16 | PC.NURSE ---
Jaundiced, patient has liver failure.
[2021-03-31 23:20] VITALS: PULSE 95; RESP 26; O2SAT 97
[2021-03-31] MEDS: LACTULOSE 20 GM/30 ML SOLUTION PO (23:28)
[2021-03-31 23:30] VITALS: BP 145/87; PULSE 94; RESP 24; O2SAT 99
[2021-04-01] VITALS (19 sets, daily range): BP systolic 106–152; BP diastolic 50–111; PULSE 64–88; RESP 16–34; TEMP 36.1–37.1; O2SAT 86–99; BMI 36.2
--- NOTE | 2021-04-01 | DI.US.S_ITS ---
PROCEDURE: US ABDOMEN LIMITED INDICATIONS: ASCITES AND GALLBLADDER PER GRISELDA TECHNIQUE: Real-time focused scanning was performed of the abdomen, with image documentation. COMPARISON: [facility], , US ABDOMEN LIMITED, 03/11/2021, 3:28. FINDINGS: Image quality limited secondary to patient breathing motion and patient body habitus. Liver is normal in size. Liver is diffusely echogenic. Liver has nodular margins. Hepatopetal flow noted in the main portal vein. Recanalization of the paraumbilical vein is noted. Previously identified gallstones are not identified in the current study. No gallbladder wall thickening with gallbladder wall measuring 3.0 millimeters. No pericholecystic fluid. No sonographic Cain sign. No intrahepatic biliary tree dilatation. Extrahepatic biliary tree is not visualized due to bowel gas and cannot be evaluated. Pancreas is not visualized due to bowel gas and cannot be evaluated. Trace ascites noted in the upper quadrants. No ascites identified in the lower quadrants. IMPRESSION: 1. Hepatic cirrhosis. 2. No sonographic evidence of cholecystitis. If there is continued clinical concern for cholecystitis, recommend nuclear medicine HIDA scan for further evaluation. 3. Ascites. Dictated by: Marley Osman MD, PhD on 04/01/2021 at 7:57 Approved by: Marley Osman MD, PhD on 04/01/2021 at 7:59
[2021-04-01 00:23] LABS: INR 1.4 (0.9-1.3)
[2021-04-01 00:26] LABS: PTT Partial Thromboplastin Tim 35 SECONDS (26.4-36.2)
--- NOTE | 2021-04-01 01:15 | PM.HP.1 ---
History of Present Illness History of Present Illness Date Patient Seen: 04/01/21 Time Patient Seen: 01:15 Chief complaint: ABD PAIN AND VOMITING Narrative: 65-year-old male former smoker with known liver disease and frequent recent visits for altered mental status thought to be related to hepatic encephalopathy requiring admissions, administration of lactulose and subsequent discharge. There are has been persistent nausea and vomiting and increasing confusion over the course of the day. gave a dose of lactulose just prior to his arrival and states there has been no change in medications or diet or any obvious excuse for why his symptoms may be exacerbating. There has been no recent trauma, illness, injury, fever, chest pain, shortness of breath, jaundice, or chills. He denies any pain. Patient denies any alcohol or substance intake. Patient reports that he is diligently compliant in taking his lactulose medications. Patient has been hospitalized 6 prior times in 2020 for acute in hepatic encephalopathy with LALITHA. His last hospitalization 03/14-03/16/2021 was a readmit from the 03/11-03/12/21 hospitalization. Upon admit patient was seen in the ED I did not appreciate any ascites or icterus on evaluation patient mentation is a grade I, patient denies any abdominal pain or discomfort, patient's PT 16/INR 1.4 short of >1.5 INR, patient's pupils were also normalreactive, patient was hemodynamically stable with a temp of 97.4?, BP 143/62, HR 87, RR 21, and O2 saturation 98% on room air lacking clinical demonstration of increased intracranial pressure or acute liver failure. Labs in comparison to 03/13/2021 admit patient's hemoglobin and hematocrit have remained stable at 10.7/31.7, platelet has slightly increased to 69, sodium has decreased to 131, chloride has decreased to 95, BUN has increased of 38, patient's creatinine an and has increased from 1.31-1.88 today, his GFR has decreased significantly from 55.3-36.4, albumin has increased to 3.3, total bilirubin has decreased 2.8, AST increased to 98, alk-phos increased to 193, patient's ammonia is higher than has been on any of his previous admits today's 300, patient's lipase is slightly decreased from previous at 4:50 a.m. and amylase has increased to 142. The patient's last abdominal ultrasound on 03/11/21 demonstrated that the gallbladder was distended. There was multiple gallstones in the gallbladder neck showing cholelithiasis without evidence of acute cholecystitis.. Cirrhosis with minimal perihepatic ascites. Patient had an echocardiogram on 03/15/2021 was predominantly within normal limits with an EF of 65-70%. Patient's confusion is less than previous admission he is being admitted for acute hepatic encephalopathy with hyperammonia and LALITHA. Patient History Medical History Anasarca Ascites Asthma Elevated brain natriuretic peptide (BNP) level Hepatitis C Hypertension Liver cancer Liver cirrhosis Surgical History History of surgery of liver Family & Social History Family History Father Trauma Mother Sjogrens syndrome Sister No significant medical problems Social History: household members spouse Safety & Behavioral: Feels Safe in Current Yes Environment Tobacco & Substance use: Tobacco type cigarettes Smoking Status Former smoker alcohol intake former alcohol intake frequency 0-2 drinks per day Substance Use Type marijuana Meds Home Medications and Allergies Home Medications Medication Instructions Recorded Confirmed Type albuterol sulfate 90 mcg/actuation 2 inhalation INHALATION Q4-6H PRN 01/23/20 03/15/21 Rx breath activated powder inhaler #1 each lactulose 40 gm PO BID #30 ml 12/19/20 03/15/21 Rx bumetanide 2 mg PO DAILY #30 tab 03/12/21 03/15/21 Rx spironolactone 100 mg PO BID #60 tab 03/12/21 03/15/21 Rx ceftriaxone 2 g IV Q24H #5 ea 03/16/21 Rx rifaximin [Xifaxan] 550 mg PO BID #60 tab 03/16/21 Rx Allergies Allergy/AdvReac Type Severity Reaction Status Date / Time No Known Drug Allergies Allergy Verified 03/10/21 22:34 Review of Systems Review of Systems ROS: Yes All systems reviewed with the patient and are negative except as otherwise documented and unobtainable due to mental status Exam Vital Signs (past 8 hours): - 03/31/21 23:20 03/31/21 23:30 04/01/21 00:00 Pulse Rate 95 H 94 H 87 Respiratory Rate 26 H 24 21 Blood Pressure 145/87 H 143/62 H Pulse Oximetry 97 99 98 Narrative Exam Narrative: Patient is a obese mildly confused male in no distress at this time. HEENT: Normocephalic, atraumatic, oral pharynx is clear. Neck is supple and symmetric, trachea is midline, no adenopathy, no thyroid enlargement, nontender, no masses palpated. Negative for JVD Lungs: Auscultation of all lung squires are clear without adventitious sounds, wheezes, rhonchi, or rales. Cardio: regular rate and rhythm without murmur, rubs, or gallops, no carotid bruit, no cardiac pulsations present. Abdomen: Soft nontender, negative for organomegaly, ascites or masses. Bowel sounds are present in all 4 quadrants without guarding or rebound, no CVA tenderness. Musculoskeletal: Muscle strength and tone are equal within normal limits, no deformity, crepitus, effusions, cyanosis, clubbing or edema present. Full range of motion intact radial and pedal pulses are normal. Skin: Icterus, with diffuse wounds with scarring and scabs present to forearms and legs. Neuro: Patient was mildly confused, aware of self and place but had difficulty recalling the events that led him to hospitalization today. Psych: Patient appears poorly kept & groomed. Objective Labs Result Diagrams: 03/31/21 22:13 03/31/21 22:13 Labs: Laboratory Results - last 24 hr 03/31/21 03/31/21 03/31/21 22:13 22:13 22:13 WBC 8.0 RBC 3.25 L Hgb 10.7 L Hct 31.7 L MCV 97.6 MCH 32.9 MCHC 33.7 RDW 16.6 H Plt Count 69 L Neut % (Auto) 70.3 Lymph % (Auto) 12.8 L [place] % (Auto) 12.4 Eos % (Auto) 3.6 Baso % (Auto) 0.9 Neut # (Auto) 5600 Lymph # (Auto) 1000 L [place] # (Auto) 1000 H Eos # (Auto) 300 Baso # (Auto) 100 PT INR APTT Sodium 131 L Potassium 4.4 Chloride 95 L Carbon Dioxide 27 BUN 38 H Creatinine 1.88 H Estimated GFR 36.4 L BUN/Creatinine Ratio 20.2 Glucose 136 H Calcium 9.6 Total Bilirubin 2.8 H AST 98 H ALT 49 Alkaline Phosphatase 193 H Ammonia 300 H Total Protein 7.6 Albumin 3.3 L Globulin 4.3 H Albumin/Globulin Ratio 0.8 L Lipase 450 H 04/01/21 00:10 WBC RBC Hgb Hct MCV MCH MCHC RDW Plt Count Neut % (Auto) Lymph % (Auto) [place] % (Auto) Eos % (Auto) Baso % (Auto) Neut # (Auto) Lymph # (Auto) [place] # (Auto) Eos # (Auto) Baso # (Auto) PT 16.0 H INR 1.4 H APTT 35 Sodium Potassium Chloride Carbon Dioxide BUN Creatinine Estimated GFR BUN/Creatinine Ratio Glucose Calcium Total Bilirubin AST ALT Alkaline Phosphatase Ammonia Total Protein Albumin Globulin Albumin/Globulin Ratio Lipase Assessment & Plan Assessment & Plan narrative: Assessment & Plan narrative: This patient requires acute care inpatient hospital management for acute hepatic encephalopathy with LALITHA, after failing outpatient management. The patient is at much higher risk for medical and surgical complications because of his history of multiple hospitalizations for acute hepatic encephalopathy and cirrhosis as result of liver cancer and hepatitis C both resolved. These factors increase the difficulty and complexity of medical and surgical interventions and increases the chances of poor outcomes such as morbidity and mortality. 1. Acute hepatic encephalopathy, Grade I, present on admission, in the setting of history of hepatocellular cancer and hepatitis-C (Resolved), resulting in chronic cirrhosis with ascites and grade III thrombocytopenia, acute on chronic, present on admission -patient presenting with mild acute confusion GCS :15, SOFA:5 which appears due to decompensated cirrhosis, ammonia grossly elevated at 300 , AST 98, alk-phos 193, bilirubin 2.8. - additionally his thrombocytopenia is slightly improved HGB 10.7/HCT 31.7, platelets 69 mild hyponatremia sodium 131 similar to last admit. -I have been unable to determine the precipitating factor for this patient's continuing escalation of ammonia levels. Patient appears to be compliant with his medications, no ingestion of alcohol. I suspect a Type 2 hepatorenal syndrome as evidence by the continuing sequence of reductions in kidney perfusion inducing greater hepatic injury due to cirrhosis -monitor & rule out patient for complications like variceal hemorrhage, ascites, spontaneous bacterial peritonitis, hepatocellular carcinoma, hepatic renal syndrome, or hepatopulmonary syndrome, septic shock, subdural hematoma, renal failure associated with possible underlying liver diseases. CTA/Pelvis:03/11/2021: Small dilated loop of jejunum with mild wall thickening within the left upper abdomen is nonspecific but may represent cycle of enteritis. There is fluid noted extending into the distal colon consistent with history of diarrhea.Moderate amount of ascites and diffuse anasarca. Cirrhotic morphology of the liver. Recanalization of the periumbilical vein and enlargement of the portal vein suggestive of portal hypertension. Cholelithiasis. Stable left adrenal nodule. -Ultrasound: 03/11/21 demonstrated that the gallbladder was distended. There was multiple gallstones in the gallbladder neck showing cholelithiasis without evidence of acute cholecystitis. Cirrhosis with minimal perihepatic ascites. Without ascites. -ECHO:03/15/2021 predominantly within normal limits with an EF of 65-70%. -blood culture x2 sent through ED -urinalysis -lactate 3.7, GGT: 176, amylase: 142, lipase: 450. -oral lactulose 20 q.4 hours as long as patients airway is protected if not will switch to rectal, Haldol for agitation, gentle hydration LR at 84cc/hr suspect dehydration as per patient's history on prior admit, ongoing assessment determine if Lasix is appropriate. -Admit to tele, vital signs q.4 hours, orthostatics q.a.m., call for respiratory rate> 30, increasing O2 requirements, systolic blood pressure <95, urinary output<100cc/hr, activity bed rest, fall precautions, daily weights, strict I&Os, O2 as needed to maintain a SaO2>92%. -Labs ordered: Daily CBC, CMP, ammonia, mag. -patient had been a pt of Dr. Johann Tamayo at [facility], Fix has since left [facility] and patient needed to establish with new provider at the liver clinic -AFP pen, per records at [facility], patient's last AFP was 3.1 2.Acute Kidney Injury in the setting of CKD stage III, acute on chronic, present on admission -Patients creatinine is decreased to 1.88 01/15/21 02/09/21 03/13/21 03/21/21 Data Communications Engineer 1.88 increased 1.19 1.35 1.31 1.36 egfr 36.4 decreased >60 53.4 55.3 52.9 Bili 2.8 increased 1.5 3.2 2.6 2.6 AST 98 increased 62 76 71 65 ALT 36 WNL unchanged Alk Phos 193 increased 137 153 127 148 Albumin 3.3 decreased 2.2 2.9 2.9 2.9 -patient currently holding patients bumetanide and spirolactone. 3. Obesity as evidence by BMI 36.3 increased from 03/14/2021, acute on chronic, present on admission -consideration will be given to dietary counseling. Code status: Full code Surrogate decision maker: patient's spouse COVID PCR: Negative VTE/DVT prophylaxis: Contraindicated due to patient's thrombocytopenia Scores GCS Ricardo coma scale eye opening: Spontaneous [place] coma scale verbal response: Orientated Ricardo coma scale motor response: Obey commands Ricardo coma scale total score: 15 SOFA PaO2/FIO2: >=400 mmHg Platelets: < 100 Bilirubin: 2.0-5.9 mg/dL Hypotension: MAP >= 70 mmHg [place] Coma Scale: 15 Renal: Creatinine 1.2-1.9 mg/dL SOFA Score: 5 Quality MIPS - Admit I confirm the patient?s Advance Care Plan is present, Code status is documented, Surrogate decision maker is in patient?s record [If Yes, STOP here]: Yes
[2021-04-01 01:29] LABS: Amylase 142 U/L (30-110); Lactate (Lactic Acid) 3.7 mmol/L (0.7-2.1)
[2021-04-01 01:43] LABS: COVID19 - ADMIT (NP swab/PCR) Negative (Negative)
[2021-04-01 02:18] LABS: Gamma Glutamyl Transpeptidase 176 U/L (15-73)
[2021-04-01] MEDS: LACTATED RINGERS 1,000 ML 100 ML IV (02:42)
[2021-04-01 03:20] LABS: Reflexed Lactate in 2 Hours Y
[2021-04-01] MEDS: LACTULOSE 20 GM/30 ML SOLUTION PO ×6 (03:38→21:34)
[2021-04-01 04:06] LABS: Add Manual Diff / Slide Review NO; Basophils Absolute Auto 0 /uL (0-100); Basophils Percent Auto 0.5 % (0-2); Eosinophils Absolute Auto 0 /uL (0-450); Eosinophils Percent Auto 0.5 % (2-4); Hematocrit 27.2 % (41-53); Hemoglobin 9.4 g/dL (13.5-17.5); Lymphocytes Absolute Auto 300 /uL (1100-4500); Lymphocytes Percent Auto 4.1 % (25-40); Mean Corpuscular HGB Conc 34.4 % (30-36); Mean Corpuscular Hemoglobin 33.4 PG (26-34); Mean Corpuscular Volume 97.3 fL (80-100); Monocytes Absolute Auto 700 /uL (0-900); Monocytes Percent Auto 8.5 % (3-14); Neutrophils Absolute Auto 7100 /uL (1500-7000); Neutrophils Percent Auto 86.4 % (50-75); Platelet Count 54 X10^3/uL (150-400); Red Cell Distribution Width 16.2 % (11.6-14.8); White Blood Cell Count 8.2 X10^3/uL (4.5-11.0)
[2021-04-01 04:08] LABS: Ammonia (NH3) 101 umol/L (9-30)
[2021-04-01 04:11] LABS: Alanine Aminotransferase 43 IU/L (<50); Albumin 2.7 g/dL (3.5-5.0); Albumin Globulin Ratio 0.7 (1.0-2.8); Alkaline Phosphatase 143 U/L (38-126); Aspartate Aminotransferase 88 IU/L (17-59); BUN Creatinine Ratio 23.5 (6-22); Bilirubin Total 3.5 mg/dL (0.2-1.3); Blood Urea Nitrogen 40 mg/dL (9-20); Calcium 9.1 mg/dL (8.4-10.2); Carbon Dioxide 26 mmol/L (22-32); Chloride 97 mmol/L (98-107); Estimated Glomerular Filt Rate 40.9 mL/min (>60); Globulin 3.7 g/dL (1.7-4.1); Glucose 153 mg/dL (80-110); HEMOLYSIS 17 (0-50); Potassium 4.8 mmol/L (3.4-5.1); Sodium 132 mmol/L (137-145); Total Protein 6.4 g/dL (6.3-8.2)
[2021-04-01 04:20] LABS: NT-proBNP (BNP-Adult 18+) 452 pg/mL (<125)
[2021-04-01 04:25] LABS: INR 1.5 (0.9-1.3); Prothrombin Time 17.4 SECONDS (10.1-12.7)
--- NOTE | 2021-04-01 04:27 | PC.NURSE ---
pt stood at bedside and was unable to pee.
[2021-04-01] MEDS: KETOROLAC 30 MG/ML VIAL 10 MG IV (05:23)
--- NOTE | 2021-04-01 10:03 | PC.NURSE ---
Pt is confused and restless. Continues to remove clothing and toss around in bed
[2021-04-01] MEDS: RIFAXIMIN 550 MG TABLET PO ×2 (10:09→21:34)
[2021-04-01] MEDS: SODIUM CHLORIDE 0.9% 1,000 ML 100 ML IV (10:13)
--- NOTE | 2021-04-01 12:58 | PC.NURSE ---
Pt up to room 210 from ER and transferred to bed. Pt is alert and awake. Oriented to self, place, situation. Year 2023, Day?, Date ?, Month April, Age 65, Birthdate correct. Pt oriented to room, call light, bed controls, and tv controls. Reminded Pt to not attempt to get out of bed without assistance and to use call light for any needs. Denies pain, nausea, or shortness of breath. Bed alarm on for safety.
--- NOTE | 2021-04-01 14:27 | CM.DPNOTE ---
Addendum entered by Ban Smith 04/02/21 12:07: [facility]ed [facility] summary and noted on the front of fax sheet pt. being discharged today. Ban Smith CM asst. Original Note: Cassie from [facility] , Please keep [facility] updated on patient and let them know of DC. Ban Smith CM Asst.
[2021-04-02 01:00] VITALS: O2SAT 96
[2021-04-02] MEDS: LACTULOSE 20 GM/30 ML SOLUTION PO ×3 (02:19→09:23)
[2021-04-02 04:00] VITALS: BP 118/53; PULSE 89; RESP 18; TEMP 36.3; O2SAT 99
[2021-04-02 06:27] LABS: Add Manual Diff / Slide Review NO; Basophils Absolute Auto 0 /uL (0-100); Basophils Percent Auto 0.3 % (0-2); Eosinophils Absolute Auto 600 /uL (0-450); Eosinophils Percent Auto 9.9 % (2-4); Hematocrit 26.3 % (41-53); Hemoglobin 8.9 g/dL (13.5-17.5); Lymphocytes Absolute Auto 600 /uL (1100-4500); Lymphocytes Percent Auto 10.2 % (25-40); Mean Corpuscular Hemoglobin 33.6 PG (26-34); Mean Corpuscular Volume 98.7 fL (80-100); Monocytes Absolute Auto 900 /uL (0-900); Monocytes Percent Auto 15.5 % (3-14); Neutrophils Absolute Auto 3800 /uL (1500-7000); Neutrophils Percent Auto 64.1 % (50-75); Platelet Count 54 X10^3/uL (150-400); Red Blood Cell Count 2.66 X10^6/uL (4.5-5.9); Red Cell Distribution Width 16.1 % (11.6-14.8)
[2021-04-02 06:33] LABS: Alanine Aminotransferase 41 IU/L (<50); Albumin 2.4 g/dL (3.5-5.0); Albumin Globulin Ratio 0.7 (1.0-2.8); Alkaline Phosphatase 132 U/L (38-126); Aspartate Aminotransferase 81 IU/L (17-59); BUN Creatinine Ratio 23.4 (6-22); Bilirubin Total 4.3 mg/dL (0.2-1.3); Blood Urea Nitrogen 39 mg/dL (9-20); Calcium 8.6 mg/dL (8.4-10.2); Carbon Dioxide 29 mmol/L (22-32); Chloride 101 mmol/L (98-107); Estimated Glomerular Filt Rate 41.8 mL/min (>60); Globulin 3.6 g/dL (1.7-4.1); Glucose 103 mg/dL (80-110); HEMOLYSIS < 15 (0-50); Magnesium 2.1 mg/dL (1.6-2.3); Potassium 4.5 mmol/L (3.4-5.1); Sodium 135 mmol/L (137-145)
[2021-04-02 06:46] LABS: Ammonia (NH3) < 9 umol/L (9-30)
[2021-04-02 08:07] VITALS: BP 114/52; PULSE 61; RESP 16; TEMP 36; O2SAT 97
--- NOTE | 2021-04-02 08:53 | P.DS_ITS ---
History of Present Illness History of Present Illness Date Patient Seen: 04/02/21 Chief complaint: ABD PAIN AND VOMITING Narrative: 65-year-old male former smoker with known liver disease and frequent recent visits for altered mental status thought to be related to hepatic encephalopathy requiring admissions, administration of lactulose and subsequent discharge. There are has been persistent nausea and vomiting and increasing confusion over the course of the day. gave a dose of lactulose just prior to his arrival and states there has been no change in medications or diet or any obvious excuse for why his symptoms may be exacerbating. There has been no recent trauma, illness, injury, fever, chest pain, shortness of breath, jaundice, or chills. He denies any pain. Patient denies any alcohol or substance intake. Patient reports that he is diligently compliant in taking his lactulose medications. Patient has been hospitalized 6 prior times in 2020 for acute in hepatic encephalopathy with LALITHA. His last hospitalization 03/14-03/16/2021 was a readmit from the 03/11-03/12/21 hospitalization. Upon admit patient was seen in the ED I did not appreciate any ascites or icterus on evaluation patient mentation is a grade I, patient denies any abdominal pain or discomfort, patient's PT 16/INR 1.4 short of >1.5 INR, patient's pupils were also normalreactive, patient was hemodynamically stable with a temp of 97.4?, BP 143/62, HR 87, RR 21, and O2 saturation 98% on room air lacking clinical demonstration of increased intracranial pressure or acute liver failure. Labs in comparison to 03/13/2021 admit patient's hemoglobin and hematocrit have remained stable at 10.7/31.7, platelet has slightly increased to 69, sodium has decreased to 131, chloride has decreased to 95, BUN has increased of 38, patient's creatinine an and has increased from 1.31-1.88 today, his GFR has decreased significantly from 55.3-36.4, albumin has increased to 3.3, total bilirubin has decreased 2.8, AST increased to 98, alk-phos increased to 193, patient's ammonia is higher than has been on any of his previous admits today's 300, patient's lipase is slightly decreased from previous at 4:50 a.m. and amylase has increased to 142. The patient's last abdominal ultrasound on 03/11/21 demonstrated that the gallbladder was distended. There was multiple gallstones in the gallbladder neck showing cholelithiasis without evidence of acute cholecystitis.. Cirrhosis with minimal perihepatic ascites. Patient had an echocardiogram on 03/15/2021 was predominantly within normal limits with an EF of 65-70%. Patient's confusion is less than previous admission he is being admitted for acute hepatic encephalopathy with hyperammonia and LALITHA. Discharge Providers Provider Date of admission: 04/01/21 08:01 Discharge Date: 04/02/21 Primary care physician: Pancho Payan MD Discharge provider: Kerry Hurst MD Summary Hospital Course Discharge Diagnosis: 1. Hepatic encephalopathy 2. Prerenal azotemia causing acute kidney injury baseline kidney creatinine 1.24 currently 1.67 3. Chronic liver disease Number for history of hep C 5. Hypertension 6. Asthma 7. History of liver cancer Hospital Course: Patient was admitted to the hospital for confusion, acute kidney injury, possible hepatorenal syndrome. The patient was given IV hydr ation and his Lasix and spironolactone were held. He continued on lactulose and refer medics in. His encephalopathy improved. His bilirubin improved. Patient was able to ambulate and deemed appropriate for discharge home. Patient continues to have some evidence of acute kidney injury. His spironolactone and Lasix will be held. Patient will be directed to follow-up with primary care physician to resume those medications when appropriate. At this time he is without complaints. He has and ambulated independently. He will be discharged home. Status at Discharge Cognitive/behavioral status at discharge: oriented Functional status at discharge: uses cane/walker Overall status at discharge: patient is back to baseline Time Spent with Patient Time spent: Less than 30 minutes Exam Vital Signs (past 8 hours): - 04/02/21 01:00 04/02/21 04:00 Temperature 97.4 F L Pulse Rate 89 Respiratory Rate 18 Blood Pressure 118/53 L Pulse Oximetry 96 99 Oxygen Delivery Method Room Air Oxygen Flow Rate 0 Narrative Exam Narrative: Pleasant gentleman sitting in a chair in no obvious distress Lungs: Decreased breath sounds but clear to auscultation Cardiac exam: Regular rate and rhythm normal S1-S2 with a 3/6 systolic ejection murmur Abdomen: Soft, nontender, mildly distended, no palpable masses noted Extremities: No edema Skin: Telecectasias on the chest, gynecomastia noted, bruising on the upper extremities and chest are noted as well Mild asterixis Objective Labs Result Diagrams: 04/02/21 06:15 04/02/21 06:15 Labs: Laboratory Results - last 24 hr 04/02/21 04/02/21 04/02/21 06:15 06:15 06:15 WBC 6.0 RBC 2.66 L Hgb 8.9 L Hct 26.3 L MCV 98.7 MCH 33.6 MCHC 34.0 RDW 16.1 H Plt Count 54 L Neut % (Auto) 64.1 D Lymph % (Auto) 10.2 L [place] % (Auto) 15.5 H Eos % (Auto) 9.9 H Baso % (Auto) 0.3 Neut # (Auto) 3800 Lymph # (Auto) 600 L [place] # (Auto) 900 Eos # (Auto) 600 H Baso # (Auto) 0 Sodium 135 L Potassium 4.5 Chloride 101 Carbon Dioxide 29 BUN 39 H Creatinine 1.67 H Estimated GFR 41.8 L BUN/Creatinine Ratio 23.4 H Glucose 103 Calcium 8.6 Magnesium 2.1 Total Bilirubin 4.3 H AST 81 H ALT 41 Alkaline Phosphatase 132 H Ammonia < 9 L Total Protein 6.0 L Albumin 2.4 L Globulin 3.6 Albumin/Globulin Ratio 0.7 L PFSH Medical History Anasarca Ascites Asthma Elevated brain natriuretic peptide (BNP) level Hepatitis C Hypertension Liver cancer Liver cirrhosis Surgical History History of surgery of liver Family History Father Trauma Mother Sjogrens syndrome Sister No significant medical problems Social History household members: spouse Smoking Status: Former smoker alcohol intake: former Discharge Assessment & Plan Assessment and Plan Assessment: Hepatic encephalopathy, improved etiology unclear Acute kidney injury, suspect prerenal azotemia Chronic liver disease secondary to hepatitis-C Hypertension Plan of Treatment: Discharge home Continue to hold Lasix and spironolactone Follow-up with his PCP next week to resume medications when appropriate Discharge Plan Discharge Plan Patient Disposition: Home Discharge orders & Medications Prescriptions: New Xifaxan 550 mg Tablet 550 mg PO BID Qty: 60 RF: 0 Continued albuterol sulfate 90 mcg/actuation aerosol powdr breath activated 2 inhalation INHALATION Q4-6H PRN (Reason: shortness of breath or wheezing) Qty: 1 RF: 6 lactulose 20 gram/30 mL Solution 40 gm PO BID Qty: 30 RF: 0 Discontinued bumetanide 2 mg tablet 2 mg PO DAILY Qty: 30 RF: 0 spironolactone 100 mg tablet 100 mg PO BID Qty: 60 RF: 0 Follow up/Referrals: Pancho Payan MD [Primary Care Provider] - Discharge Health Status Multidrug resistant organism: No MDRO Diet/Activity/Treatments Diet: Diet as Tolerated Skin/Wound/Dressing Care Report to your healthcare provider any signs of infection, such as:: chills, fever Discharge Data Primary Care Provider: Pancho Payan Quality VTE Deep Vein Thrombosis/Pulmonary Embolism Present on Admission: No
[2021-04-02 09:00] VITALS: O2SAT 97
[2021-04-02] MEDS: RIFAXIMIN 550 MG TABLET PO (09:23)
--- NOTE | 2021-04-02 10:22 | CM.DANOTE ---
Addendum entered by Addis Roca R.N. 04/02/21 12:29: Updated Cassie at [facility] that patient is being discharged home today. Let her know that he is being discharged home today, and that he was observation status. She will not need resumption orders in this case. Confirmed that he is still getting RN, P.T, and O.T. Original Note: DCP: Case received, EMR reviewed and met with patient. Introduced self and role. Was able to get information from patient regarding his baseline activity status. Patient has been here recently, this pillowcase sewer is aware of patient's current living situation. Patient is a 65 year old male who admitted yesterday morning to the care of the hospitalist team. PCP: Dr. Payan. Payer: confirmed: Medicare/Medicaid. Patient came to the hospital via private vehicle secondary to having some nausea and vomiting. Patient holds current diagnosis of acute hepatic encephalopathy. He does have history of chronic hepatic encephalopathy, as patient has been here before for this with altered mental status. Patient is alert today. He was sitting up in his chair Met with patient. He is pleasant. He was recently here for infection, and sent home with [facility] for home IV antibiotics with assistant men's lacrosse coach of his life partner, Tayler Grady. He was also sent home with [facility], nursing, P.T,O.T, ENGINEERING DESIGN SUPERVISOR for resources in caregiving through [place]. Patient does not drive, Tayler takes him to appointments, they both reside in [place]. He mentioned that he has an appointment on 04-14 [facility] to look into possible liver transplant. He indicated that he has been taking his Lactulose. P: Patient will be discharged home today. He indicated that he is no longer on his IV antibiotics. Will have Ban fax over a DC summary to [facility] when completed. He will remain OBS, and will not need a resumption order. Will attempt to update Cassie at [facility] when phones are working, as phone system is down now. Addis Roca RN/Rotational Moulding Operator
--- NOTE | 2021-04-02 13:17 | PC.NURSE ---
Pt is dressed and ready to discharge home with S.O. Went over d/c instructions with Pt and S.O. - discussed d/c meds, time of last dose, reviewed stroke education, encouraged Pt to consistently take his lactulose to prevent hepatic encephelopathy, and to start his new medication as directed. Pt and S.O. deny further questions and were taken out via w/c by HEALTH EQUIPMENT SERVICER to POV with all belongings.
== END 2021-04-02 13:32 | disposition home or self-care (01) ==
LOC: ED 04-01 02:55 → AC 04-01 08:26
PROVIDERS: Nurse Practitioner Family; Admitting Provider Internal Medicine; Emergency Provider Emergency Medicine; PCP Internal Medicine; Referring Provider Emergency Medicine; Visit Provider Internal Medicine
DX: K72.90 Hepatic failure, unspecified without coma (principal); N17.9 Acute kidney failure, unspecified; R11.2 Nausea with vomiting, unspecified; R10.9 Unspecified abdominal pain; R41.0 Disorientation, unspecified; R79.89 Other specified abnormal findings of blood chemistry; I10 Essential (primary) hypertension; J45.909 Unspecified asthma, uncomplicated; Z85.05 Personal history of malignant neoplasm of liver; Z86.19 Personal history of other infectious and parasitic diseases; Z20.822 Contact with and (suspected) exposure to COVID-19
CPT/HCPCS: 36415; 51798; 76705; 80053; 82140; 82150; 82962; 82977; 83605; 83690; 83735; 83880; 85025; 85610; 85730; 87045; 87635; 87899; 93005; 93010; 96361; 96374; 96375; 99285; C9803; G0378; J1885; J2405

== ENCOUNTER 2021-06-18 07:27 | Observation (INO) | payer MEDICARE, MEDICAID, SELFPAY ==
[2020-12-16 10:24] VITALS: RESP 12
[2020-12-16 10:41] VITALS: PULSE 72; RESP 13; O2SAT 97
[2021-04-01 12:32] VITALS: BMI 36.2
[2021-06-18] VITALS (16 sets, daily range): BP systolic 82–101; BP diastolic 43–54; PULSE 74–80; RESP 17–29; TEMP 35.8–36.3; O2SAT 97–100; BMI 38.3
--- NOTE | 2021-06-18 07:49 | PC.NURSE ---
Removed from backboard and cleared by Dr. Olvera at 0735.
--- NOTE | 2021-06-18 07:54 | DI.CT.S_ITS ---
PROCEDURE: CT HEAD/BRAIN WO CON INDICATIONS: fall, confusion TECHNIQUE: Noncontrast 4.5 mm thick angled axial sections acquired from the foramen magnum to the vertex, with coronal and sagittal reformats. For radiation dose reduction, the following was used: automated exposure control, adjustment of mA and/or kV according to patient size. COMPARISON: [facility], CT, CT HEAD/BRAIN WO CON, 03/10/2021, 23:13. FINDINGS: Image quality: Excellent. CSF spaces: Basal cisterns are patent. No extra-axial fluid collections. The ventricles are symmetric in size and shape. Brain: No intracranial bleeds or masses. 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 There is cerebral volume loss for age, with resultant ventricular and sulcal prominence. There are periventricular and deep white matter chronic small vessel ischemic changes. There is intracranial internal carotid artery atherosclerosis. Skull and face: Calvarium and visualized facial bones appear intact, without suspicious lesions. Sinuses: Visualized sinuses and mastoids are clear. IMPRESSION: 1. No CT evidence of acute intracranial bleed, midline shift or mass effect. No gross CT evidence of acute infarction. 2. 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 Diffuse atrophy and white matter small vessel ischemic changes. Dictated by: Silvano Charles M.D. on 06/18/2021 at 8:21 Approved by: Silvano Charles M.D. on 06/18/2021 at 8:24
--- NOTE | 2021-06-18 07:54 | DI.CT.S_ITS ---
PROCEDURE: CT CERVICAL SPINE WO CON INDICATIONS: fall, pain TECHNIQUE: Noncontrast 3 mm thick sections acquired from the skull base to the T4 level. Sagittal and coronal reformats were then constructed. For radiation dose reduction, the following was used: automated exposure control, adjustment of mA and/or kV according to patient size. COMPARISON: None. FINDINGS: Image quality: Excellent. Bones: Severe cervical spondylitic change. Incomplete interbody fusion at C6-C7, possibly an auto fusion. Retrolisthesis of C5 on C6 measures 4 mm. Trace retrolisthesis of C3 on C4. Moderately large broad-based disc protrusion at C3-C4, of uncertain chronicity, results in at least moderately severe canal stenosis. There is multilevel foraminal narrowing, including severe bilateral foraminal narrowing at C7-T1. Soft tissues: Prevertebral soft tissues are normal in thickness. No paravertebral hematomas. No apical pneumothoraces. Dense bilateral carotid bifurcation calcifications. IMPRESSION: 1. Severe cervical spondylitic change. 2. No acute fractures or dislocations identified. 3. Moderately large broad-based disc protrusion at C3-C4, of unknown chronicity, results in at least moderate to severe canal stenosis. Comment: If the patient has acute neurological symptoms, cervical spine MRI may be helpful. Dictated by: Earnest Mccabe M.D. on 06/18/2021 at 8:22 Approved by: Earnest Mccabe M.D. on 06/18/2021 at 8:29
--- NOTE | 2021-06-18 07:56 | DI.CT.S_ITS ---
PROCEDURE: CT CHEST ABD PEL WO CON INDICATIONS: trauma TECHNIQUE: After the administration of oral contrast, 5 mm thick sections acquired from the lung apices to the symphysis pubis. 5 mm thick coronal and sagittal reformats acquired, with additional 7 mm coronal MIP reformats through the lungs. For radiation dose reduction, the following was used: automated exposure control, adjustment of mA and/or kV according to patient size. COMPARISON: [facility], CT, CT ABDOMEN PELVIS W CON, 02/09/2021, 16:21. [facility], CT, CT CHEST ABD PEL W CON, 03/11/2021, 1:05. [facility], CT, CT ABDOMEN WO/W CON, 03/14/2020, 11:31. [facility], CT, CT CHEST ABD PEL WO CON, 12/10/2020, 15:13. FINDINGS: Image quality: Excellent. CHEST: Lungs and pleura: No acute pulmonary opacities. Bilateral subpleural scars and atelectasis. Mild centrilobular emphysema. No pleural effusions or pneumothorax. Central and peripheral airways are patent are normal in caliber. Mediastinum: Heart size is mildly increased. There is severe coronary artery calcification. No pericardial effusion. No mediastinal adenopathy by CT size criteria. Thoracic aorta and central pulmonary arteries are normal in size. Esophagus is normal in caliber. Small hiatal hernia. Chest wall: No axillary or supraclavicular adenopathy by size criteria. Thyroid gland is normal . ABDOMEN: Solid organs: Liver is small and demonstrates nodular contour and lobulated consistent with cirrhosis. Gallbladder is unremarkable. Gallstones seen on the last exam is not well visualized on the current exam. Pancreas is normal in contours. Spleen is mildly enlarged. There is a 2.5 cm splenule in the splenic hilum. size. A 2.4 cm left adrenal nodule is present, unchanged in size compared to the last exam. Right adrenal is normal. Both kidneys are normal in size, without hydronephrosis or nephrolithiasis. Peritoneum and bowel: Small and large bowel loops are normal in caliber and wall thickness. Diverticulosis without diverticulitis. There is a small amount of ascites, minimally increased compared to the last exam. No free air. Nodes and vessels: No retroperitoneal or mesenteric adenopathy by size criteria. Aorta and inferior vena cava are normal in size. Recannulized umbilical vein and multiple portal systemic venous collaterals consistent with portal hypertension. Miscellaneous: Small fat containing umbilical hernia. Diffuse body wall edema consistent with anasarca. PELVIS: Genitourinary: Bladder wall thickness is normal. Miscellaneous: No inguinal hernias or adenopathy. Bones: No suspicious bony lesions. No vertebral body compression fractures. Degenerative changes are noted in thoracic and lumbar spine. There are old rib fractures bilaterally, involving the left 7th, 8th, 9th, and 10th ribs and the right 7th rib. IMPRESSION: 1. No acute traumatic injuries in thorax abdomen or pelvis. 2. Multiple old rib fractures bilaterally. 3. Cirrhosis with portal hypertension. 4. Splenomegaly. 5. Stable left adrenal nodule. 6. A small amount of ascites, which is slightly increased compared to the last exam. 7. Diverticulosis without diverticulitis. 8. Mild cardiomegaly. Severe coronary artery calcification. The result was discussed with Dr. Olvera. Dictated by: Nathaniel Walker M.D. on 06/18/2021 at 9:17 Approved by: Nathaniel Walker M.D. on 06/18/2021 at 9:47
[2021-06-18] MEDS: SODIUM CHLORIDE 0.9% 1,000 ML 1000 ML IV ×2 (08:01→11:14)
[2021-06-18 08:08] LABS: INR 1.9 (0.9-1.3); Prothrombin Time 21.2 SECONDS (10.1-12.7)
[2021-06-18 08:10] LABS: Ammonia (NH3) < 9 umol/L (9-30)
--- NOTE | 2021-06-18 08:10 | ED.GENADULT ---
HPI - General Adult General Chief complaint: Weakness Stated complaint: General weakness Time Seen by Provider: 06/18/21 07:28 History of Present Illness HPI narrative: 66-year-old gentleman lives at home with his with a history of hepatic encephalopathy, liver cancer, hepatitis-C and cirrhosis apparently had a fall in the shower yesterday and landing against his spine and right ribs. As his was helping him to the car today to come into the ER had another fall in the driveway. 911 was called. He was found to be hypotensive, significantly confused and globally weak. He has multiple bruises from his fall yesterday over his body. He complains of diffuse pain but has difficulty localizing anything. He is able to move all extremities. Related Data Previous Rx's Medication Instructions Recorded albuterol sulfate 90 mcg/actuation 2 inhalation INHALATION Q4-6H PRN 01/23/20 breath activated powder inhaler #1 each lactulose 20 gram/30 mL oral 40 gm PO BID #30 ml 12/19/20 solution rifaximin 550 mg tablet (Xifaxan) 550 mg PO BID #60 tab 04/02/21 Allergies Allergy/AdvReac Type Severity Reaction Status Date / Time No Known Drug Allergies Allergy Verified 03/10/21 22:34 Review of Systems Review of Systems ROS Unobtainable: Unobtainable due to medical condition and Other (Presumed hepatic encephalopathy) Patient History Medical History (Updated 06/18/21 @ 09:14 by Carmita Olvera MD) Anasarca Ascites Asthma Elevated brain natriuretic peptide (BNP) level Hepatitis C Hypertension Liver cancer Liver cirrhosis Surgical History History of surgery of liver Family History Father Trauma Mother Sjogrens syndrome Sister No significant medical problems Social History household members: spouse Smoking Status: Former smoker alcohol intake: former Smoking Status: Former smoker alcohol intake frequency: 0-2 drinks per day Substance Use Type: marijuana Exam Narrative Exam Narrative: General: Pale, obese, on backboard, alert an oriented to place but not year. HEENT: Moist mucous membranes, normal sclera with reactive pupils, Neck: No JVD, supple Respiratory: Lungs are clear to auscultation, no wheezing no rales no rhonchi. No obvious splinting or accessory muscle use. Cardiac: Regular rate and rhythm no murmurs no bruits Chest: No subcutaneous air, no point tenderness along sternum or ribs where he is complaining of pain Abdomen: Soft, obese, nontender, good bowel tones, no flank pain Neurologic: Grossly neurologically intact with no obvious asymmetries or abnormalities Extremities: Bruising as documented below, symmetrical 2 to 3+ edema with chronic venous stasis changes Psych: Moaning, confused Initial Vital Signs Initial Vital Signs: Vital Signs Pulse Rate 79 06/18/21 07:36 Respiratory Rate 18 06/18/21 07:36 Pulse Oximetry 99 06/18/21 07:36 Skin Other: Skin is pale, minor older bruises are noting about that multiple large bruises approximately 24 hours old are as documented below Front/Back of Body, Lg (Color): 1. 2. 3. 4. 5. 6. 7. 8. 9. 10. 11. 12. Course Course Course Narrative: Phone discussion with his significant other, Tayler Rasmussen [phone] reviewed findings associated with today as well as anticipated admission. She confirms very clearly that he would not want CPR or intubation would prefer to to occur naturally. He also would not ever consider dialysis. She notes that he is currently absolutely miserable and would not want to prolong life with extraordinary measures. With this absolutely clear. He will be on appropriate mission for [facility]. DNR, DNI No dialysis Orders Ordered: ED Orders 06/18/21 EKG-12 Lead Stat 06/18/21 07:45 Ammonia (NH3) Stat Complete Blood Count AUTO DIFF Stat Comprehensive Metabolic Panel Stat Ethanol (ETOH) Stat Lactate (Lactic Acid) Stat Magnesium Stat NT-proBNP (BNP-Adult 18+) Stat Partial Thromboplastin Time Stat Prothrombin Time INR Stat Troponin I Stat 06/18/21 07:53 Blood Culture Stat COVID19 - ADMIT ([employer] swab/PCR) Stat 06/18/21 07:54 CT cervical spine wo con Stat CT head/brain wo con Stat Type and Screen Stat Urinalysis and Microscopic Stat 06/18/21 07:56 CT chest abd pel wo con Stat Sodium Chloride (Normal Saline 0.9%) 1,000 mls @ 1,000 mls/hr IV BOLUS ONE Stop: 06/18/21 08:52 Last Admin: 06/18/21 08:01 Dose: 1,000 mls/hr Documented by: VERONIKA Vital Signs Vital signs: Vital Signs - 8 hr 06/18/21 07:36 06/18/21 07:39 06/18/21 07:40 Temperature 96.5 F L Pulse Rate 79 76 76 Respiratory Rate 18 22 20 Blood Pressure 85/47 L 85/47 L Pulse Oximetry 99 98 99 06/18/21 07:45 06/18/21 08:15 06/18/21 08:30 Temperature Pulse Rate 75 74 77 Respiratory Rate 29 H 21 20 Blood Pressure 82/43 L Pulse Oximetry 100 Medical Decision Making Lab Data Result diagrams: 06/18/21 07:45 06/18/21 07:45 Labs: Lab Results 06/18/21 06/18/21 06/18/21 Range/Units 07:45 07:45 07:45 WBC 8.1 (4.5-11.0) X10^3/uL RBC 3.15 L (4.5-5.9) X10^6/uL Hgb 10.2 L (13.5-17.5) g/dL Hct 30.1 L (41-53) % MCV 95.4 (80-100) fL MCH 32.3 (26-34) PG MCHC 33.8 (30-36) % RDW 15.4 H (11.6-14.8) % Plt Count 14 L* (150-400) X10^3/uL Neut % (Auto) Splicing Machine Operator Automatic Lymph % (Auto) Splicing Machine Operator Automatic Miner % (Auto) Splicing Machine Operator Automatic Eos % (Auto) Splicing Machine Operator Automatic Baso % (Auto) Splicing Machine Operator Automatic Neut # (Auto) Splicing Machine Operator Automatic Lymph # (Auto) Splicing Machine Operator Automatic Miner # (Auto) Splicing Machine Operator Automatic Eos # (Auto) Splicing Machine Operator Automatic Baso # (Auto) Splicing Machine Operator Automatic PT (10.1-12.7) SECONDS INR (0.9-1.3) APTT 40 H (26.4-36.2) SECONDS Sodium 121 L (137-145) mmol/L Potassium 4.8 (3.4-5.1) mmol/L Chloride 92 L (98-107) mmol/L Carbon Dioxide 16 L (22-32) mmol/L BUN 80 H (9-20) mg/dL Creatinine 3.58 H (0.66-1.25) mg/dL Estimated GFR 17.3 L (>60) mL/min BUN/Creatinine Ratio 22.3 H (6-22) Glucose 76 L (80-110) mg/dL Lactate (0.7-2.1) mmol/L Calcium 8.7 (8.4-10.2) mg/dL Magnesium 2.2 (1.6-2.3) mg/dL Total Bilirubin 6.3 H (0.2-1.3) mg/dL AST 73 H (17-59) IU/L ALT 48 (<50) IU/L Alkaline Phosphatase 125 (38-126) U/L Ammonia (9-30) umol/L Troponin I (0.01-0.034) ng/mL NT-Pro-B Natriuret Pep (<125) pg/mL Total Protein 5.6 L (6.3-8.2) g/dL Albumin 2.3 L (3.5-5.0) g/dL Globulin 3.3 (1.7-4.1) g/dL Albumin/Globulin Ratio 0.7 L (1.0-2.8) Ethyl Alcohol < 10 ( - 10) mg/dL 06/18/21 06/18/21 06/18/21 Range/Units 07:45 07:45 07:45 WBC (4.5-11.0) X10^3/uL RBC (4.5-5.9) X10^6/uL Hgb (13.5-17.5) g/dL Hct (41-53) % MCV (80-100) fL MCH (26-34) PG MCHC (30-36) % RDW (11.6-14.8) % Plt Count (150-400) X10^3/uL Neut % (Auto) Lymph % (Auto) Miner % (Auto) Eos % (Auto) Baso % (Auto) Neut # (Auto) Lymph # (Auto) Miner # (Auto) Eos # (Auto) Baso # (Auto) PT 21.2 H (10.1-12.7) SECONDS INR 1.9 H (0.9-1.3) APTT (26.4-36.2) SECONDS Sodium (137-145) mmol/L Potassium (3.4-5.1) mmol/L Chloride (98-107) mmol/L Carbon Dioxide (22-32) mmol/L BUN (9-20) mg/dL Creatinine (0.66-1.25) mg/dL Estimated GFR (>60) mL/min BUN/Creatinine Ratio (6-22) Glucose (80-110) mg/dL Lactate 7.0 H* (0.7-2.1) mmol/L Calcium (8.4-10.2) mg/dL Magnesium (1.6-2.3) mg/dL Total Bilirubin (0.2-1.3) mg/dL AST (17-59) IU/L ALT (<50) IU/L Alkaline Phosphatase (38-126) U/L Ammonia < 9 L (9-30) umol/L Troponin I (0.01-0.034) ng/mL NT-Pro-B Natriuret Pep (<125) pg/mL Total Protein (6.3-8.2) g/dL Albumin (3.5-5.0) g/dL Globulin (1.7-4.1) g/dL Albumin/Globulin Ratio (1.0-2.8) Ethyl Alcohol ( - 10) mg/dL 06/18/21 Range/Units 07:45 WBC (4.5-11.0) X10^3/uL RBC (4.5-5.9) X10^6/uL Hgb (13.5-17.5) g/dL Hct (41-53) % MCV (80-100) fL MCH (26-34) PG MCHC (30-36) % RDW (11.6-14.8) % Plt Count (150-400) X10^3/uL Neut % (Auto) Lymph % (Auto) Miner % (Auto) Eos % (Auto) Baso % (Auto) Neut # (Auto) Lymph # (Auto) Miner # (Auto) Eos # (Auto) Baso # (Auto) PT (10.1-12.7) SECONDS INR (0.9-1.3) APTT (26.4-36.2) SECONDS Sodium (137-145) mmol/L Potassium (3.4-5.1) mmol/L Chloride (98-107) mmol/L Carbon Dioxide (22-32) mmol/L BUN (9-20) mg/dL Creatinine (0.66-1.25) mg/dL Estimated GFR (>60) mL/min BUN/Creatinine Ratio (6-22) Glucose (80-110) mg/dL Lactate (0.7-2.1) mmol/L Calcium (8.4-10.2) mg/dL Magnesium (1.6-2.3) mg/dL Total Bilirubin (0.2-1.3) mg/dL AST (17-59) IU/L ALT (<50) IU/L Alkaline Phosphatase (38-126) U/L Ammonia (9-30) umol/L Troponin I < 0.012 (0.01-0.034) ng/mL NT-Pro-B Natriuret Pep 3550 H (<125) pg/mL Total Protein (6.3-8.2) g/dL Albumin (3.5-5.0) g/dL Globulin (1.7-4.1) g/dL Albumin/Globulin Ratio (1.0-2.8) Ethyl Alcohol ( - 10) mg/dL Imaging Data CT scan - head: Radiologist's Impression: FINDINGS: Image quality: Excellent. CSF spaces: Basal cisterns are patent. No extra-axial fluid collections. The ventricles are symmetric in size and shape. Brain: No intracranial bleeds or masses. 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 There is cerebral volume loss for age, with resultant ventricular and sulcal prominence. There are periventricular and deep white matter chronic small vessel ischemic changes. There is intracranial internal carotid artery atherosclerosis. Skull and face: Calvarium and visualized facial bones appear intact, without suspicious lesions. Sinuses: Visualized sinuses and mastoids are clear. IMPRESSION: 1. No CT evidence of acute intracranial bleed, midline shift or mass effect. No gross CT evidence of acute infarction. 2. 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 Diffuse atrophy and white matter small vessel ischemic changes. Dictated by: Silvano Charles M.D. on 06/18/2021 at 8:21 ECG Data Interpretation: Sinus rhythm at a rate of 73 Normal axis, normal intervals No acute ischemic changes MDM Narrative Medical decision making narrative: 66-year-old gentleman presents after falling twice. He is hypotensive and confused. Medics believe that his confusion is at his baseline. However, his ammonia level is not detectable at this time so this does not appear to be significant hepatic encephalopathy. There are no signs or suggestion of infection -no rhonchi, no cough, no infectious type rashes, no complaints of dysuria and no fever. He does not have significant ascites on physical exam and there is no evidence of spontaneous bacterial peritonitis. PT and PTT are slightly elevated but seemed to be close to his relative baseline. Platelets are at 13 and his baseline thrombocytopenia is typically in the 50-60 range. Lactic acid is elevated but has been so with prior episodes of significant dehydration associated with his hepatic encephalopathy. Remainder of chemistries are markedly abnormal but not inconsistent with prior blood work. He does have worsening acute kidney injury with a creatinine at 3.58. He is hyponatremic at 121. He does not have significant anion gap. ProBNP is elevated with prior diagnosis of congestive heart failure. Hepatic parameters are slightly increased with his bilirubin up from his 3-4 range currently at 6.3. ALT and AST are both with in his usual parameters. He is not showing signs of significant acute blood loss from internal bleeding within H&H at 10.2 and 30.1 which is above his baseline (likely reflecting the degree of intravascular dehydration). At this time he clearly has altered mental status that does not seem to be dramatically off from his baseline, he is dehydrated with acute kidney injury and hyponatremia. The hyponatremia may be contributing to the mental status changes. Also has an elevated BNP without significant interstitial fluid in his lungs. His lower extremity 2 to 3+ edema again, appears to be at his baseline. Care is reviewed with Dr. Amezcua, hospitalist today. Patient will be admitted. Will gently rehydrate and monitor all other parameters. DNR/DNI, no dialysis. The begins to turn around that will be wonderful and if not recognizing that comfort measured and even consideration of hospice for home discharge may be most appropriate care for him. Critical Care Time Critical Care Time Critical Care Time: Yes Total Critical Care Time: 33 Attestation: Critical care time is separate from other billable procedures. There is a high probability of a significant, sudden or life-threatening deterioration that requires my full and direct attention, intervention and personal management. This critical care time includes consultation with family and other consulting doctors, review of records, and interpretation of data from labs, EKGs and imaging as well as managements of acutely altered mental status and multiple metabolic derangements Discharge Plan Departure Patient Disposition: Admitted As Inpatient Clinical Impression: Acute hyponatremia, Acute dehydration, Thrombocytopenia, Weakness Acute renal failure Qualifiers: Acute renal failure type: unspecified Qualified Code(s): N17.9 - Acute kidney failure, unspecified Prescriptions: No Action albuterol sulfate 90 mcg/actuation aerosol powdr breath activated 2 inhalation INHALATION Q4-6H PRN (Reason: shortness of breath or wheezing) Qty: 1 RF: 6 lactulose 20 gram/30 mL Solution 40 gm PO BID Qty: 30 RF: 0 Xifaxan 550 mg Tablet 550 mg PO BID Qty: 60 RF: 0 Referrals: Pancho Payan MD [Primary Care Provider] -
[2021-06-18 08:14] LABS: Albumin 2.3 g/dL (3.5-5.0); Albumin Globulin Ratio 0.7 (1.0-2.8); Alkaline Phosphatase 125 U/L (38-126); Aspartate Aminotransferase 73 IU/L (17-59); Bilirubin Total 6.3 mg/dL (0.2-1.3); Blood Urea Nitrogen 80 mg/dL (9-20); Calcium 8.7 mg/dL (8.4-10.2); Carbon Dioxide 16 mmol/L (22-32); Chloride 92 mmol/L (98-107); Ethanol (ETOH) < 10 mg/dL; Globulin 3.3 g/dL (1.7-4.1); Glucose 76 mg/dL (80-110); Magnesium 2.2 mg/dL (1.6-2.3); Potassium 4.8 mmol/L (3.4-5.1); Sodium 121 mmol/L (137-145); Total Protein 5.6 g/dL (6.3-8.2)
[2021-06-18 08:19] LABS: BUN Creatinine Ratio 22.3 (6-22); Estimated Glomerular Filt Rate 17.3 mL/min (>60); HEMOLYSIS < 15 (0-50); PTT Partial Thromboplastin Tim 40 SECONDS (26.4-36.2)
[2021-06-18 08:21] LABS: Alanine Aminotransferase 48 IU/L (<50)
[2021-06-18 08:25] LABS: NT-proBNP (BNP-Adult 18+) 3550 pg/mL (<125); Troponin I < 0.012 ng/mL (0.01-0.034)
[2021-06-18 08:26] LABS: Hematocrit 30.1 % (41-53); Hemoglobin 10.2 g/dL (13.5-17.5); Mean Corpuscular HGB Conc 33.8 % (30-36); Mean Corpuscular Hemoglobin 32.3 PG (26-34); Mean Corpuscular Volume 95.4 fL (80-100); Red Blood Cell Count 3.15 X10^6/uL (4.5-5.9); Red Cell Distribution Width 15.4 % (11.6-14.8); White Blood Cell Count 8.1 X10^3/uL (4.5-11.0)
[2021-06-18 08:27] LABS: Platelet Count 14 X10^3/uL (150-400)
[2021-06-18 08:29] LABS: Add Manual Diff / Slide Review YES
[2021-06-18 09:15] LABS: Appearance Urine UA CLEAR; Bilirubin Urine UA 1+ (NEGATIVE); Color Urine UA YELLOW; Glucose Urine UA NEGATIVE (Negative); Ketones Urine UA NEGATIVE (NEGATIVE); Leukocyte Esterase Urine UA TRACE (NEGATIVE); Nitrite Urine UA NEGATIVE (Negative); Occult Blood Urine UA 3+ (Negative); Protein Urine UA TRACE (Negative); Specific Gravity Urine UA 1.025 (1.000-1.035); Urobilinogen Urine UA 0.2 E.U./dL (0.2)
[2021-06-18 09:17] LABS: Bacteria Urine Many (>30); Culture Indicated Urine Specimen Cultured; Ictotest Urine Positive (Negative); RBC Urine 5-10/HPF (0-5/HPF); Squamous Epithelial Cell Urine 1-5 /HPF (0-5/HPF); WBC Urine 1-5/HPF (0-5/HPF)
[2021-06-18 09:38] LABS: Neutrophils Absolute Manual 5589 /uL (3000-5900); Total Cells Counted 100
[2021-06-18 09:39] LABS: Platelet Estimate Decreased on smear; RBC Morphology Normal Morphology
[2021-06-18 09:59] LABS: Reflexed Lactate in 2 Hours Y
[2021-06-18 10:05] LABS: COVID19 - ADMIT (NP swab/PCR) Negative (Negative)
--- NOTE | 2021-06-18 10:27 | PC.NURSE ---
Addendum entered by Tina Culver R.N. 06/18/21 15:04: Pt transferred via bed from 229 to 209. Report given to oncoming shift. Addendum entered by Tina Culver R.N. 06/18/21 13:58: Spectral Scientist at bedside for extended period. Spouse at bedside. After two liters of fluid boluses, blood pressure unchanged and lactate level unchanged. Dr. Amezcua informed; need clarification on plan of care. Have held pain meds thus far due to BP. Conversation between patient, spouse, doctor and RN regarding prognosis and options. Pt. clearly expressed that his top priority is for comfort care. Will minimize interventions, allow rest and administer pain meds. Pt and spouse in agreement. Bed placed in partial reverse trendelenburg position with goal to decrease BLE swelling and pain. Original Note: Report received from ED. Patient to Rm 229 at 0955. Patient oriented to self, place, situation. Disoriented as to time. C/o pain 10/10 in BLE. Hypotensive; otherwise VSS. Per Dr. Amezcua, pt and spouse understand the possible end-of-life implications to patient's diagnosis. DNR/DNI, thought they would still like other clinical interventions, including pain control. IV fluid bolus of normal saline started at 500cc/hr. Pt oriented to call light. Bed alarm set.
[2021-06-18] MEDS: cefTRIAXone 1,000 MG in SODIUM CHLORIDE 0.9% 100 ML 200 ML IV (11:02)
[2021-06-18] MEDS: HYDROMORPHONE 1 MG INJ IV ×2 (13:46→21:30)
[2021-06-18] MEDS: OXYCODONE IR 10 MG TABLET PO (13:47)
--- NOTE | 2021-06-18 17:18 | PC.NURSE ---
Patient moved from room 229 in ICU to room 206 around 1500. Patient resting comfortably and was given dilaudid and oxycodone for pain. Patient's triage licensed practical nurse is here and he mentioned that the patient is very comfortable and acknowledged I was here. Will continue to check in and give pain medication or nausea medication as needed.
--- NOTE | 2021-06-18 17:51 | P.HP_ITS ---
History of Present Illness History of Present Illness Date Patient Seen: 06/18/21 Time Patient Seen: 12:00 Chief complaint: General weakness Narrative: 66M with PMH of cirrhosis with history of hepatic encephalopathy, liver cancer, hep C and many frequent admissions comes in to the hospital today after a fall. He fell yesterday in the shower and landed on his right side. He fell again today. EMS was called. He was noted to be hypotensive, and weak. He was mainly complaining of pain in his legs. Otherwise he was confused and not able to easily localize his pain. He was not having fevers, chills, nausea, vomiting diarrhea. No chest pain, shortness of breath. No syncope. In the ED, workup was done his vitals were notable for hypotension with systolic blodo pressure in the 80s. Labs notable for WBC 8.1 with significant bandemia, platelets 14, sodium 121, co2 16, creatinine 3.58, bilirubin 6.3, inr 1.9, lactate 7, ammonia <9. UA positive with leuk esterase, and bacteria. He was given IV fluids and IV antibiotics and was admitted. He was given IV boluses with repeat lactate of 7, and blood pressure still in the 80s. His pressing concern was treating his pain control. Discussed with patient and partner at length and they agree to focus on comfort care. He wanted DNR/DNI, he did not want dialysis. His partner at bedside says she knew this day was coming soon, and he was been declining at home and not having a good quality of life. Patient History Medical History Anasarca Ascites Asthma Elevated brain natriuretic peptide (BNP) level Hepatitis C Hypertension Liver cancer Liver cirrhosis Surgical History History of surgery of liver Family & Social History Family History Father Trauma Mother Sjogrens syndrome Sister No significant medical problems Social History: household members spouse Safety & Behavioral: Feels Safe in Current Yes Environment Been Physically Hurt or No Threatened By a Person Suicidal Ideation Description None Tobacco & Substance use: Tobacco type cigarettes Smoking Status Former smoker alcohol intake former alcohol intake frequency 0-2 drinks per day Substance Use Type marijuana Meds Home Medications and Allergies Home Medications Medication Instructions Recorded Confirmed Type albuterol sulfate 90 mcg/actuation 2 inhalation INHALATION Q4-6H PRN 01/23/20 06/18/21 Rx breath activated powder inhaler #1 each lactulose 20 gram/30 mL oral 40 gm PO BID #30 ml 12/19/20 06/18/21 Rx solution bumetanide 2 mg tablet 2 mg DAILY 06/18/21 06/18/21 History spironolactone 100 mg tablet 100 mg BID 06/18/21 06/18/21 History Allergies Allergy/AdvReac Type Severity Reaction Status Date / Time No Known Drug Allergies Allergy Verified 03/10/21 22:34 Review of Systems Review of Systems Narrative: 14 systems reviewed and negative aside from what is noted in HPI Exam Vital Signs (past 8 hours): - 06/18/21 10:09 06/18/21 12:15 06/18/21 16:40 Temperature 97.3 F L 97.1 F L Pulse Rate 80 77 Respiratory Rate 19 17 Blood Pressure 83/52 L 85/53 L Pulse Oximetry 100 97 97 Oxygen Delivery Method Room Air Narrative Exam Narrative: General:? jaundiced, alert, moderate distress from pain HEENT:? dry mucous membranes, scleral icterus Neck:? No JVD, trachea midline Respiratory:? Lungs are clear bilaterally with no wheezes Cardiac:? Regular rate and rhythm with no murmurs Abdomen:? Soft, obese, distended, nontender, normal bowel sounds Neurologic:? no noted focal deficits Extremities:? Bruising on extremities, 2+ pitting edema bilaterally Psych:?confused, cooperative Objective Labs Result Diagrams: 06/18/21 07:45 06/18/21 07:45 Labs: Laboratory Results - last 24 hr 06/18/21 06/18/21 06/18/21 07:45 07:45 07:45 WBC 8.1 RBC 3.15 L Hgb 10.2 L Hct 30.1 L MCV 95.4 MCH 32.3 MCHC 33.8 RDW 15.4 H Plt Count 14 L* Neut % (Auto) Senior Devops Engineer Lymph % (Auto) Senior Devops Engineer [place] % (Auto) Senior Devops Engineer Eos % (Auto) Senior Devops Engineer Baso % (Auto) Senior Devops Engineer Neut # (Auto) Senior Devops Engineer Lymph # (Auto) Senior Devops Engineer [place] # (Auto) Senior Devops Engineer Eos # (Auto) Senior Devops Engineer Baso # (Auto) Senior Devops Engineer Total Counted 100 Seg Neutrophils % 37.0 L Band Neutrophils % 32.0 H Monocytes % (Manual) 19.0 H Metamyelocytes % 9.0 H Myelocytes % 3.0 H Neutrophils # (Manual) 5589 Platelet Estimate Decreased on smear RBC Morphology Normal morphology PT INR APTT 40 H Sodium 121 L Potassium 4.8 Chloride 92 L Carbon Dioxide 16 L BUN 80 H Creatinine 3.58 H Estimated GFR 17.3 L BUN/Creatinine Ratio 22.3 H Glucose 76 L Lactate Calcium 8.7 Magnesium 2.2 Total Bilirubin 6.3 H AST 73 H ALT 48 Alkaline Phosphatase 125 Ammonia Troponin I NT-Pro-B Natriuret Pep Total Protein 5.6 L Albumin 2.3 L Globulin 3.3 Albumin/Globulin Ratio 0.7 L Urine Color Urine Appearance Urine pH Ur Specific Emm[place] Urine Protein Urine Glucose (UA) Urine Ketones Urine Occult Blood Urine Nitrate Urine Bilirubin Ur Bilirubin Confirm Urine Urobilinogen Ur Leukocyte Esterase Urine RBC Urine WBC Ur Squamous Epith Cells Urine Bacteria Ur Culture Indicated? Nasal Screen MRSA (PCR) Ethyl Alcohol < 10 SARS-CoV-2 (PCR) Blood Type Antibody Screen 06/18/21 06/18/21 06/18/21 07:45 07:45 07:45 WBC RBC Hgb Hct MCV MCH MCHC RDW Plt Count Neut % (Auto) Lymph % (Auto) [place] % (Auto) Eos % (Auto) Baso % (Auto) Neut # (Auto) Lymph # (Auto) [place] # (Auto) Eos # (Auto) Baso # (Auto) Total Counted Seg Neutrophils % Band Neutrophils % Monocytes % (Manual) Metamyelocytes % Myelocytes % Neutrophils # (Manual) Platelet Estimate RBC Morphology PT 21.2 H INR 1.9 H APTT Sodium Potassium Chloride Carbon Dioxide BUN Creatinine Estimated GFR BUN/Creatinine Ratio Glucose Lactate 7.0 H* Calcium Magnesium Total Bilirubin AST ALT Alkaline Phosphatase Ammonia < 9 L Troponin I NT-Pro-B Natriuret Pep Total Protein Albumin Globulin Albumin/Globulin Ratio Urine Color Urine Appearance Urine pH Ur Specific Emmett Urine Protein Urine Glucose (UA) Urine Ketones Urine Occult Blood Urine Nitrate Urine Bilirubin Ur Bilirubin Confirm Urine Urobilinogen Ur Leukocyte Esterase Urine RBC Urine WBC Ur Squamous Epith Cells Urine Bacteria Ur Culture Indicated? Nasal Screen MRSA (PCR) Ethyl Alcohol SARS-CoV-2 (PCR) Blood Type Antibody Screen 06/18/21 06/18/21 06/18/21 07:45 07:45 08:38 WBC RBC Hgb Hct MCV MCH MCHC RDW Plt Count Neut % (Auto) Lymph % (Auto) [place] % (Auto) Eos % (Auto) Baso % (Auto) Neut # (Auto) Lymph # (Auto) [place] # (Auto) Eos # (Auto) Baso # (Auto) Total Counted Seg Neutrophils % Band Neutrophils % Monocytes % (Manual) Metamyelocytes % Myelocytes % Neutrophils # (Manual) Platelet Estimate RBC Morphology PT INR APTT Sodium Potassium Chloride Carbon Dioxide BUN Creatinine Estimated GFR BUN/Creatinine Ratio Glucose Lactate Calcium Magnesium Total Bilirubin AST ALT Alkaline Phosphatase Ammonia Troponin I < 0.012 NT-Pro-B Natriuret Pep 3550 H Total Protein Albumin Globulin Albumin/Globulin Ratio Urine Color Urine Appearance Urine pH Ur Specific Emmett Urine Protein Urine Glucose (UA) Urine Ketones Urine Occult Blood Urine Nitrate Urine Bilirubin Ur Bilirubin Confirm Urine Urobilinogen Ur Leukocyte Esterase Urine RBC Urine WBC Ur Squamous Epith Cells Urine Bacteria Ur Culture Indicated? Nasal Screen MRSA (PCR) Ethyl Alcohol SARS-CoV-2 (PCR) Negative Blood Type O Positive Antibody Screen Negative 06/18/21 06/18/21 06/18/21 08:38 10:12 12:05 WBC RBC Hgb Hct MCV MCH MCHC RDW Plt Count Neut % (Auto) Lymph % (Auto) [place] % (Auto) Eos % (Auto) Baso % (Auto) Neut # (Auto) Lymph # (Auto) [place] # (Auto) Eos # (Auto) Baso # (Auto) Total Counted Seg Neutrophils % Band Neutrophils % Monocytes % (Manual) Metamyelocytes % Myelocytes % Neutrophils # (Manual) Platelet Estimate RBC Morphology PT INR APTT Sodium Potassium Chloride Carbon Dioxide BUN Creatinine Estimated GFR BUN/Creatinine Ratio Glucose Lactate 7.0 H* Calcium Magnesium Total Bilirubin AST ALT Alkaline Phosphatase Ammonia Troponin I NT-Pro-B Natriuret Pep Total Protein Albumin Globulin Albumin/Globulin Ratio Urine Color Yellow Urine Appearance Clear Urine pH 5.0 Ur Specific Emmett 1.025 Urine Protein Trace H Urine Glucose (UA) Negative Urine Ketones Negative Urine Occult Blood 3+ H Urine Nitrate Negative Urine Bilirubin 1+ H Ur Bilirubin Confirm Positive H Urine Urobilinogen 0.2 Ur Leukocyte Esterase Trace H Urine RBC 5-10/hpf H Urine WBC 1-5/hpf Ur Squamous Epith Cells 1-5 /hpf Urine Bacteria Many (>30) H Ur Culture Indicated? Specimen cultured Nasal Screen MRSA (PCR) Negative for mrsa Ethyl Alcohol SARS-CoV-2 (PCR) Blood Type Antibody Screen Assessment & Plan Assessment & Plan narrative: Mr. Guzmán is a 66M with PMH of cirrhosis who presents with weakness found to have rising bilirubin, LALITHA, worsening thrombocytopenia and encephalopathy. 1. LALITHA -concern would be for prerenal from volume depletion vs HRS -trialed IV boluses, however patient remained hypotensive -decision was made to make patient comfort measures 2. Cirrhosis with history of hepatic encephaloapthy, hep c, etoh abuse, and live r cancer -rising bilirubin showed worsening liver function -imaging showed mild ascites, nothing able to be tapped -ammonia level normal 3. UTI -possibly cause of patient's confusion -has significant bandemia possibly from infection -did get IV antibiotics -will discontinue given current goals of care 4. Thrombocytopenia -severe -chronically low in setting of cirrhosis -acutely worse from possible infection vs worsening liver failure vs possible ITP -focus on comfort 5. Hypertension -hold anti-hypertensives 6. Elevated lactate -possibly from infection causing hypotension vs worsening liver failure -treating as above, did not improve with antibiotics and fluids 7. Hyponatremia -secondary to worsening renal/liver function -received IV fluids -treat as above DIET: regular DVT ppx: none as thrombocytopenic CODE: DNR/DNI, comfort measures PROXY: Tayler Rasmussen, life partner I have utilized all available immediate resources to obtain, update, or review the patient's current medications. Time Spent With Patient Critical Care time: I spent a total of [] minutes of critical care time on this patient's care today; this time is exclusive of procedural time. Quality MIPS - Admit I confirm the patient?s Advance Care Plan is present, Code status is documented, Surrogate decision maker is in patient?s record [If Yes, STOP here]: Yes
[2021-06-18 20:32] LABS: Acinetobacter baumannii Not Detected (Not Detect); Candida albicans Not Detected (Not Detect); Candida glabrata Not Detected (Not Detect); Candida krusei Not Detected (Not Detect); Candida parapsilosis Not Detected (Not Detect); Candida tropicalis Not Detected (Not Detect); E. coli Not Detected (Not Detect); Enterobacter cloacae complex Not Detected (Not Detect); Enterobacteriaceae species Detected (Not Detect); Enterococcus species Not Detected (Not Detect); Haemophilus influenzae Not Detected (Not Detect); KPC (carbapenem-resist gene) Not Detected (Not Detect); Listeria monocytogenes Not Detected (Not Detect); Neisseria meningitidis Not Detected (Not Detect); Proteus species Not Detected (Not Detect); Pseudomonas aeruginosa Not Detected (Not Detect); Serratia marcescens Not Detected (Not Detect); Staphylococcus species Not Detected (Not Detect); Streptococcus agalactiae (Gr B Not Detected (Not Detect); Streptococcus pneumonia Not Detected (Not Detect); Streptococcus pyogenes (Gr A) Not Detected (Not Detect); Streptococcus species Not Detected (Not Detect)
[2021-06-19 02:26] VITALS: PULSE 86; RESP 18; TEMP 36.2; O2SAT 92
[2021-06-19] MEDS: OXYCODONE IR 10 MG TABLET PO (02:49)
[2021-06-19 06:38] LABS: Hematocrit 34.5 % (41-53); Hemoglobin 11.6 g/dL (13.5-17.5); Mean Corpuscular HGB Conc 33.6 % (30-36); Mean Corpuscular Volume 95.4 fL (80-100); Red Blood Cell Count 3.62 X10^6/uL (4.5-5.9); Red Cell Distribution Width 15.4 % (11.6-14.8); White Blood Cell Count 17.1 X10^3/uL (4.5-11.0)
[2021-06-19 06:40] LABS: Add Manual Diff / Slide Review YES; Blood Urea Nitrogen 89 mg/dL (9-20); Calcium 8.5 mg/dL (8.4-10.2); Carbon Dioxide 14 mmol/L (22-32); Chloride 94 mmol/L (98-107); HEMOLYSIS < 15 (0-50); Potassium 5.3 mmol/L (3.4-5.1); Sodium 123 mmol/L (137-145)
[2021-06-19 06:41] LABS: Platelet Count 11 X10^3/uL (150-400)
[2021-06-19 06:55] LABS: BUN Creatinine Ratio 23.9 (6-22); Estimated Glomerular Filt Rate 16.5 mL/min (>60)
[2021-06-19 06:58] LABS: Glucose 28 mg/dL (80-110)
[2021-06-19 08:38] LABS: Neutrophils Absolute Manual 12141 /uL (3000-5900); Total Cells Counted 100
[2021-06-19 08:39] LABS: Toxic Granulation Present; Toxic Vacuolation Present
[2021-06-19 08:41] LABS: Acanthocytes 2+; Poikilocytosis 1+
[2021-06-19 08:44] LABS: Platelet Estimate Decreased on smear
[2021-06-19] MEDS: HYDROMORPHONE 1 MG INJ IV ×2 (09:25→12:52)
[2021-06-19] MEDS: SCOPOLAMINE 1 PATCH TOP (09:26)
[2021-06-19 10:48] VITALS: O2SAT 95
[2021-06-19] MEDS: LORazepam 2 MG/ML INJ 1 MG IV (12:23)
--- NOTE | 2021-06-19 14:01 | PC.NURSE ---
Patient passes at 1340. Called partner to inform. Tayler and daughter at bedside and belongings sent home with them.
--- NOTE | 2021-06-19 16:20 | CM.DPNOTE ---
DCP Note According to TAMMY Saini, supportive spouse at bedside, patient likely to pass here in the hospital, producing les and less via srivastava. This SENIOR DATABASE ADMINISTRATOR following closely and will plan to assess and review POC/DCP options w/spouse tomorrow if patient survives the evening. ASTER
--- NOTE | 2021-06-19 19:40 | PM.DDS.1 ---
Discharge Summary History of Illness Narrative: 66M with PMH of cirrhosis with history of hepatic encephalopathy, liver cancer, hep C and many frequent admissions comes in to the hospital today after a fall. He fell yesterday in the shower and landed on his right side. He fell again today. EMS was called. He was noted to be hypotensive, and weak. He was mainly complaining of pain in his legs. Otherwise he was confused and not able to easily localize his pain. He was not having fevers, chills, nausea, vomiting diarrhea. No chest pain, shortness of breath. No syncope. In the ED, workup was done his vitals were notable for hypotension with systolic blodo pressure in the 80s. Labs notable for WBC 8.1 with significant bandemia, platelets 14, sodium 121, co2 16, creatinine 3.58, bilirubin 6.3, inr 1.9, lactate 7, ammonia <9. UA positive with leuk esterase, and bacteria. He was given IV fluids and IV antibiotics and was admitted. He was given IV boluses with repeat lactate of 7, and blood pressure still in the 80s. His pressing concern was treating his pain control. Discussed with patient and partner at length and they agree to focus on comfort care. He wanted DNR/DNI, he did not want dialysis. His partner at bedside says she knew this day was coming soon, and he was been declining at home and not having a good quality of life. Hospital Course Date of Admission: 06/18/21 09:23 Primary care provider: Pancho Payan MD Consults: 06/18/21 13:43 Consult to Hospice Referral Urgent Comment: Discharge Diagnosis: 1. Bacteremia 2. UTI 3. LALITHA 4. Cirrhosis with history of hepatic encephaloapthy, hep c, etoh abuse, and liver cancer 5. Thrombocytopenia 6. Hypertension 7. Elevated lactate 8. Hyponatremia Hospital Course: Mr. Guzmán came to the hospital in multiorgan failure with LALITHA, worsening cirrhosis with ascites, worsening thrombocytopenia. He was found to have a UTI and he was growing gram negative bacteria in his blood. In the ED long discussion was had and he did not want aggressive intervenstions, DNR/DNI, no dialysis. He was ok to try IV fluid and antibiotics, but he presented with hypotension and lactate of 7, and did not improve with IV fluid and antibiotics. He was made comfort care with discussion with him and his partner. He peacefully at 1340p. Objective Labs Result Diagrams: 06/19/21 06:13 06/19/21 06:13 Labs: Laboratory Results - last 24 hr 06/18/21 06/19/21 06/19/21 08:35 06:13 06:13 WBC 17.1 H D RBC 3.62 L Hgb 11.6 L Hct 34.5 L MCV 95.4 MCH 32.0 MCHC 33.6 RDW 15.4 H Plt Count 11 L* Neut % (Auto) Not Reportable Lymph % (Auto) Not Reportable [place] % (Auto) Not Reportable Eos % (Auto) Not Reportable Baso % (Auto) Not Reportable Lymph # (Auto) Not Reportable [place] # (Auto) Not Reportable Baso # (Auto) Not Reportable Total Counted 100 Seg Neutrophils % 23.0 L Band Neutrophils % 48.0 H Lymphocytes % (Manual) 1.0 L Monocytes % (Manual) 8.0 Metamyelocytes % 12.0 H Myelocytes % 6.0 H Promyelocytes % 1.0 H Blast Cells % 1.0 H Neutrophils # (Manual) 76157 H Toxic Granulation Present H Toxic Vacuolation Present H Platelet Estimate Decreased on smear RBC Morphology See below Poikilocytosis 1+ H Acanthocytes (Spur) 2+ Sodium 123 L Potassium 5.3 H Chloride 94 L Carbon Dioxide 14 L BUN 89 H Creatinine 3.73 H Estimated GFR 16.5 L BUN/Creatinine Ratio 23.9 H Glucose 28 L* Calcium 8.5 A. baumannii (PCR) Not detected Carmen albicans (PCR) Not detected C. glabrata (PCR) Not detected C. krusei (PCR) Not detected C. parapsilosis (PCR) Not detected C. tropicalis (PCR) Not detected Enterobacteriac sp PCR Detected H E. cloacae complex PCR Not detected Enterococcus sp PCR Not detected E. coli (PCR) Not detected H. influenzae (PCR) Not detected Klebsiella oxytoca PCR Detected H Klebsiella pneumoniae Not detected List. monocytogenes PCR Not detected N. meningitidis (PCR) Not detected Proteus species (PCR) Not detected Serratia marcescens PCR Not detected Staphylococcus sp PCR Not detected Staph aureus (PCR) Not detected mecA-Methicil Res Gene Not Reportable Streptococcus sp PCR Not detected Group A Strep (PCR) Not detected Strep agalactiae (PCR) Not detected Strep pneumoniae (PCR) Not detected P. aeruginosa (PCR) Not detected Dion/B-Vanco Res Genes Not Reportable KPC-Carbap Res Gene PCR Not detected
== END 2021-06-19 15:00 | disposition expired ==
LOC: ED 09:14 → ICU 10:39 → AC 06-19 16:25 → ICU 06-27 09:55
PROVIDERS: Admitting Provider Internal Medicine; Emergency Provider Emergency Medicine; PCP Internal Medicine; Referring Provider Emergency Medicine; Visit Provider Internal Medicine
DX: R78.81 Bacteremia (principal); N39.0 Urinary tract infection, site not specified; N17.9 Acute kidney failure, unspecified; K74.60 Unspecified cirrhosis of liver; R18.8 Other ascites; D69.6 Thrombocytopenia, unspecified; E87.1 Hypo-osmolality and hyponatremia; I10 Essential (primary) hypertension; R74.02 Elevation of levels of lactic acid dehydrogenase [LDH]; Z51.5 Encounter for palliative care; Z66 Do not resuscitate; Z20.822 Contact with and (suspected) exposure to COVID-19; W19.XXXA Unspecified fall, initial encounter; Z87.891 Personal history of nicotine dependence
CPT/HCPCS: 36415; 70450; 71250; 72125; 74176; 80048; 80053; 80320; 81001; 82140; 83605; 83735; 83880; 84484; 85007; 85025; 85610; 85730; 86850; 86900; 86901; 87040; 87077; 87086; 87150; 87186; 87205; 87635; 87797; 93005; 94760; 96360; 96361; 99285; 99291; C9803; G0378; J0696; J1170; J2060